=== PATIENT | female | born 1975 | race Caucasian/White ===

== ENCOUNTER 2017-10-13 02:02 | Emergency (ER) | payer OTHER, MEDICAID, SELFPAY ==
--- NOTE | 2017-10-13 02:07 | ED_ITS ---
HPI - Headache General Chief Complaint: Headache Stated Complaint: Massive Headache unable to use right arm well Time Seen by Provider: 10/13/17 02:06 Source: patient Mode of arrival: ambulatory Limitations: no limitations History of Present Illness HPI Narrative: Patient is a 41-year-old female here for evaluation of a headache and inability to lift her right arm. Patient states that the headache woke her from sleep just prior to arrival. Patient states that she has had headaches in the past this is the same headache in character that she has had in the past just worse. She has never had right arm symptoms associated with the headaches. She does state that she gets headaches ?frequently ?she is not on any headache preventative medicines. Denies any fevers. Denies any trauma. States she does have some tingling in her fingers however her right arm symptoms are that she cannot lift her right arm up. States she does have some neck pain. Related Data Home Medications Medication Instructions Recorded Confirmed loratadine 10 mg tablet 10 mg PO DAILY 10/06/17 10/06/17 Previous Rx's Medication Instructions Recorded albuterol sulfate HFA 90 2 inhalation INHALATION Q4HP PRN 10/06/17 mcg/actuation aerosol inhaler #200 inhalation fluticasone 50 mcg/actuation nasal 1 spray NASAL BID #16 gram 10/06/17 spray,suspension fluticasone furoate 100 1 inhalation INHALATION DAILY #30 10/06/17 mcg/actuation blister powder for each inhalation Allergies Allergy/AdvReac Type Severity Reaction Status Date / Time Aspirin Allergy Mild Uncoded 10/13/17 02:44 Salicylate Allergy Mild Uncoded 10/13/17 02:44 Review of Systems Constitutional Denies fatigue, Denies fever(s), Reports headache(s) and Denies weakness Eyes Denies blurry vision and Denies diplopia ENT Ears, Nose, Mouth, and Throat: Denies vertigo, Denies dizziness, Reports headache(s), Reports neck pain, Denies disequilibrium, Denies sinus pressure and Denies sore throat Cardiovascular Denies chest pain, Denies palpitations and Denies dyspnea Respiratory Denies cough and Denies dyspnea Gastrointestinal Gastrointestinal: Denies nausea and Denies vomiting Genitourinary Denies dysuria Musculoskeletal Denies myalgias, Denies arthralgias, Reports neck pain and Reports tingling ( Right hand) Comments: No pain in the right arm but states she cannot lift her right arm Integumentary/Breasts Denies lesions and Denies rash Neurologic Denies vertigo, Denies dizziness, Reports headache(s), Denies focal weakness, Reports tingling (Right hand), Denies disequilibrium and Denies weakness Endocrine Denies fatigue and Denies palpitations Hematologic/Lymphatic Denies easy bleeding and Denies easy bruising COUNTS INCLUDE 234 BEDS AT THE [facility] Medical History Asthma (Chronic) Bipolar disorder (Chronic) Duodenal ulcer (Chronic 09/2009) Surgical History Status post endoscopy (Resolved 09/2009) Family History Other Alcoholism Asthma Social History Smoking Status: Smoker, status unknown Exam Initial Vital Signs Initial Vital Signs: Vital Signs Temperature 98 F 10/13/17 02:13 Pulse Rate 114 H 10/13/17 02:13 Respiratory Rate 18 10/13/17 02:13 Blood Pressure 138/91 H 10/13/17 02:13 Pulse Oximetry 96 10/13/17 02:13 Const General: cooperative, healthy appearing, comfortable, well developed, well groomed and No acute distress Orientation: alert, awake and oriented x3 HENMT Head: normal to inspection, normocephalic and atraumatic Face and sinus: normal facial exam Mouth: oral mucosae normal Eyes Pupils: PERRL EOM: EOM intact bilaterally Neck Neck: full ROM and no meningeal signs Resp Effort & Inspection: normal respiratory effort Auscultation: clear to auscultation bilaterally Cardio Rate: tachycardic Rhythm: regular rhythm Pulses: radial pulses present GI Inspection: normal to inspection and non-distended Palpation: soft and No firm Skin Lesions: no lesions Rashes: no rashes Neuro General: alert, awake and oriented x3 Cranial Nerves: CN's II-XI intact bilaterally Cognition: normal cognition Speech: speech normal Gait: normal gait Motor: muscle tone normal throughout Sensory Exam: no sensory deficits noted (Despite her feeling of ?tingling? in her right hand) Extrem Other: Left upper extremity unremarkable. Patient able to forward flex and abduct her right arm to approximately 45? and then she states that it ?stops ? she does not have any pain. She states that she cannot lift her left arm. She states that it does not feel weak. Passively trying to lift her right arm patient resists moving it past 45?. When she is reminded to relax her arm his easily forward flexed and abducted actively however she then resists the movement once again. Psych Appearance: grossly normal and well kempt Course Orders Ordered: ED Orders 10/13/17 02:12 CT head/brain wo con Stat 10/13/17 02:15 Basic Metabolic Panel Stat Complete Blood Count AUTO DIFF Stat Discontinued Medications Diphenhydramine HCl (Benadryl) 25 mg IV NOW ONE Stop: 10/13/17 02:11 Last Admin: 10/13/17 02:25 Dose: 25 mg Sodium Chloride (Normal Saline 0.9%) 1,000 mls @ 1,000 mls/hr IV BOLUS ONE Stop: 10/13/17 03:09 Last Infusion: 10/13/17 03:24 Dose: 0 mls/hr Admin: 10/13/17 02:25 Dose: 1,000 mls/hr Metoclopramide HCl (Reglan) 10 mg IV NOW ONE Stop: 10/13/17 02:11 Last Admin: 10/13/17 02:25 Dose: 10 mg Vital Signs - 8 hr 10/13/17 02:13 Temperature 98 F Pulse Rate 114 H Respiratory Rate 18 Blood Pressure 138/91 H Pulse Oximetry 96 MDM - Headache Lab Data Attestation: I reviewed the patient's lab results. Result diagrams: 10/13/17 02:15 10/13/17 02:15 Lab Results 10/13/17 10/13/17 Range/Units 02:15 02:15 WBC 10.9 (4.5-11.0) X10^3/uL RBC 4.13 (4.0-5.2) X10^6/uL Hgb 14.9 (12.0-16.0) g/dL Hct 42.6 (36-46) % MCV 103.1 H (80-100) fL MCH 35.9 H (26-34) PG MCHC 34.8 (30-36) % RDW 13.4 (11.6-14.8) % Plt Count 120 L (150-400) X10^3/uL Neut % (Auto) 47.1 L (50-75) % Lymph % (Auto) 37.8 (25-40) % [place] % (Auto) 7.9 (3-14) % Eos % (Auto) 5.7 H (2-4) % Baso % (Auto) 1.5 (0-2) % Neut # (Auto) 5100 (9280-2553) /uL Sodium 148 H (137-145) mmol/L Potassium 4.3 (3.4-5.1) mmol/L Chloride 106 (98-107) mmol/L Carbon Dioxide 24 (22-32) mmol/L BUN 6 L (7-17) mg/dL Creatinine 0.40 L (0.52-1.04) mg/dL Estimated GFR > 60.0 (>60) mL/min BUN/Creatinine Ratio 15.0 (6-22) Glucose 119 H (70-100) mg/dL Calcium 9.3 (8.4-10.2) mg/dL Imaging Data CT scan - head: Radiologist's impression: No acute pathology MDM Narrative Medical decision making narrative: Patient with headache. She states that she does have headaches in the past and in character this 1 feels like a prior headache. She was given Reglan and Benadryl which resolved all of her symptoms. Her head CT was negative. She has no meningeal signs. Patient's right arm symptoms were also resolved with the Reglan and Benadryl. I do not feel that her history and physical exam is consistent with a CVA or TIA. Upon arrival she clearly was resisting my movement of her arm in forward flexion and abduction. I am not sure the exact etiology of why this was happening. This could be an atypical migraine. There could also be a psych component to her symptoms. Informed the patient that she needed to contact her primary care doctor for a follow-up. Informed her that if she does get frequent headaches that she should talk with her primary care doctor about being referred to see a headache specialist. She was given return precautions. She expressed understanding and agreement with plan. Discharge Plan Departure Patient Disposition: Home, Self-Care Clinical Impression: Headache Discharge Date/Time: 10/13/17 03:29 Instructions: DI for Headache Activity Restrictions/Additional Instructions: Recommend you continue all of your medications as directed. Contact your primary care doctor for a follow-up. Return to the emergency department for any new or worsening symptoms. Prescriptions: No Action loratadine [Claritin] 10 mg tablet 10 mg PO DAILY RF: 0 fluticasone furoate [Arnuity Ellipta] 100 mcg/actuation blister with device 1 inhalation INHALATION DAILY Qty: 30 RF: 1 albuterol sulfate [Ventolin HFA] 90 mcg/actuation HFA aerosol inhaler 2 inhalation INHALATION Q4HP PRN (Reason: shortness of breath or wheezing) Qty: 200 RF: 0 fluticasone [Allergy Relief (fluticasone)] 50 mcg/actuation spray,suspension 1 spray NASAL BID Qty: 16 RF: 8
--- NOTE | 2017-10-13 02:12 | DI.CT.S_ITS ---
PROCEDURE: CT HEAD/BRAIN WO CON INDICATIONS: Headache TECHNIQUE: Noncontrast 4.5 mm thick angled axial sections acquired from the foramen magnum to the vertex, with coronal and sagittal reformats. For radiation dose reduction, the following was used: automated exposure control, adjustment of mA and/or kV according to patient size. COMPARISON: None. FINDINGS: Image quality: Excellent. CSF spaces: Basal cisterns are patent. No extra-axial fluid collections. Ventricles are normal in size and shape. Brain: No midline shift. No intracranial masses or hemorrhage. De La Garza-white matter interface is normal. Skull and face: Calvarium and visualized facial bones are intact, without suspicious lesions. Sinuses: Visualized sinuses and mastoids are clear except for minimal right sphenoid sinus disease. IMPRESSION: No acute intracranial process. Dictated by: Shankar Hogue M.D. on 10/13/2017 at 7:08 Approved by: Shankar Hogue M.D. on 10/13/2017 at 7:09
[2017-10-13 02:13] VITALS: BP 138/91; PULSE 114; RESP 18; TEMP 36.6; O2SAT 96; BMI 25.8
[2017-10-13] MEDS: SODIUM CHLORIDE 0.9% 1,000 ML 1000 ML IV (02:25)
[2017-10-13] MEDS: diphenhydrAMINE 50 MG/ML VIAL 25 MG IV (02:25)
[2017-10-13] MEDS: METOCLOPRAMIDE 10 MG/2 ML INJ IV (02:25)
--- NOTE | 2017-10-13 02:30 | PC.NURSE ---
SHE STATED SHE COULD NOT MOVE HER RIGHT ARM BUT WAS ABLE TO RAISE IT TO HER CHEST AND PER DR. BELL ABLE TO PUSH HER ARM DOWN AGAINST HIS HAND'S RESISTENCE.
[2017-10-13 02:31] LABS: Hematocrit 42.6 % (36-46); Hemoglobin 14.9 g/dL (12.0-16.0); Mean Corpuscular HGB Conc 34.8 % (30-36)
[2017-10-13 02:36] LABS: Add Manual Diff / Slide Review NO; Basophils Percent Auto 1.5 % (0-2); Blood Urea Nitrogen 6 mg/dL (7-17); Calcium 9.3 mg/dL (8.4-10.2); Carbon Dioxide 24 mmol/L (22-32); Chloride 106 mmol/L (98-107); Eosinophils Percent Auto 5.7 % (2-4); Estimated Glomerular Filt Rate > 60.0 mL/min (>60); Glucose 119 mg/dL (70-100); HEMOLYSIS < 15 (0-50); Lymphocytes Percent Auto 37.8 % (25-40); Mean Corpuscular Hemoglobin 35.9 PG (26-34); Mean Corpuscular Volume 103.1 fL (80-100); Monocytes Percent Auto 7.9 % (3-14); Neutrophils Absolute Auto 5100 /uL (3000-5900); Neutrophils Percent Auto 47.1 % (50-75); Platelet Count 120 X10^3/uL (150-400); Potassium 4.3 mmol/L (3.4-5.1); Red Blood Cell Count 4.13 X10^6/uL (4.0-5.2); Red Cell Distribution Width 13.4 % (11.6-14.8); Sodium 148 mmol/L (137-145); White Blood Cell Count 10.9 X10^3/uL (4.5-11.0)
[2017-10-13 03:25] VITALS: BP 97/59; PULSE 74; RESP 12; O2SAT 97
== END 2017-10-13 03:29 | disposition home or self-care (01) ==
PROVIDERS: Emergency Provider Emergency Medicine; Family Provider Family Medicine; PCP Family Medicine
DX: R51 Headache (principal)
CPT/HCPCS: 36591; 70450; 80048; 85025; 96361; 96374; 96375; 99283; 99284; 99291; J1200; J2765

== ENCOUNTER → 2017-10-20 10:51 | Outpatient (CLI) | payer OTHER, MEDICAID, SELFPAY ==
--- NOTE | 2017-10-20 11:01 | DI.RAD.S_ITS ---
PROCEDURE: XR CHEST 2V INDICATIONS: POORLY CONTROLLED PERSISTENT ASTHMA TECHNIQUE: 2 views of the chest were acquired. COMPARISON: None. FINDINGS: Surgical changes and devices: None. Lungs and pleura: No pleural effusions or pneumothorax. Lungs are clear. Mediastinum: Mediastinal contours are normal. Heart size is normal. Bones and chest wall: No suspicious bony abnormalities. Soft tissues appear unremarkable. IMPRESSION: Normal for age, source of current symptoms is not seen. Dictated by: Jayson Pena M.D. on 10/20/2017 at 11:44 Approved by: Jayson Pena M.D. on 10/20/2017 at 11:44
== END ==
PROVIDERS: PCP Internal Medicine; Visit Provider Internal Medicine
DX: J45.998 Other asthma (principal)
CPT/HCPCS: 71046

== ENCOUNTER → 2018-02-02 16:37 | Outpatient (CLI) | payer OTHER, MEDICAID, SELFPAY ==
--- NOTE | 2018-02-06 08:41 | PM.PFT.1 ---
Pulmonary Function Test Referral & Results Date Patient Seen: 02/02/18 Requesting provider: Nahum Oakley Indication: Asthma Results: The spirometry demonstrates an FVC of 3.79 L which is 88% of predicted. The FEV1 was measured at 2.97 L which is 86% of predicted. The FEV1/FVC ratio was 79 which is 96% of predicted. Following the administration of bronchodilator there was no appreciable change. Lung volumes show an SVC of 3.66 L which is 94% of predicted. The diffusing capacity was measured at 31.11 which is 100% of predicted. The maximum voluntary ventilation was slightly reduced Interpretation: This study is essentially normal. There may be very mild obstructive lung disease present based on a very slight curve to the flow volume loop and very minimal reduction in FEV1. No evidence of benefit following bronchodilator administration however.
== END ==
PROVIDERS: PCP Internal Medicine; Visit Provider Internal Medicine
DX: J45.998 Other asthma (principal)
CPT/HCPCS: 94060; 94726; 94729

== ENCOUNTER 2018-06-23 13:26 | Emergency (ER) | payer OTHER, MEDICAID, SELFPAY ==
[2018-06-23 13:43] VITALS: BP 128/82; PULSE 99; RESP 20; TEMP 36.8; O2SAT 97; BMI 23.3
--- NOTE | 2018-06-23 13:47 | DI.RAD.S_ITS ---
PROCEDURE: XR RIBS RT MIN 3V W CXR 1V INDICATIONS: right rib pain after fall TECHNIQUE: 4 views of the ribs and chest were acquired. COMPARISON: None. FINDINGS: Surgical changes and devices: None. Bones and chest wall: No fractures or dislocations. No suspicious bony lesions. Overlying soft tissues appear unremarkable. Lungs and pleura: No pleural effusions or pneumothorax. Lungs appear clear. Mediastinum: Mediastinal contours appear normal. Heart size is normal. IMPRESSION: Chest without acute cardiopulmonary abnormalities or rib fractures. Dictated by: Adithya Lea M.D. on 06/23/2018 at 14:13 Approved by: Adithya Lea M.D. on 06/23/2018 at 14:14
== END 2018-06-23 16:08 | disposition left against medical advice (07) ==
PROVIDERS: Emergency Provider Emergency Medicine; PCP Internal Medicine
DX: R07.81 Pleurodynia (principal); Z53.21 Procedure and treatment not carried out due to patient leaving prior to being seen by health care provider
CPT/HCPCS: 71101; 99282

== ENCOUNTER 2018-07-11 16:56 | Emergency (ER) | payer OTHER, MEDICAID, SELFPAY ==
[2018-07-11 17:03] VITALS: BP 134/79; PULSE 112; RESP 16; TEMP 36.9; O2SAT 96; BMI 23.3
[2018-07-11 18:40] LABS: Add Manual Diff / Slide Review NO; Basophils Absolute Auto 100 /uL (0-100); Basophils Percent Auto 1.1 % (0-2); Eosinophils Absolute Auto 100 /uL (0-450); Eosinophils Percent Auto 1.7 % (2-4); Hematocrit 34.5 % (36-46); Hemoglobin 11.6 g/dL (12.0-16.0); Lymphocytes Absolute Auto 2000 /uL (1100-4500); Lymphocytes Percent Auto 28.8 % (25-40); Mean Corpuscular HGB Conc 33.5 % (30-36); Mean Corpuscular Hemoglobin 35.7 PG (26-34); Mean Corpuscular Volume 106.7 fL (80-100); Monocytes Absolute Auto 600 /uL (0-900); Monocytes Percent Auto 8.5 % (3-14); Neutrophils Absolute Auto 4200 /uL (1500-7000); Neutrophils Percent Auto 59.9 % (50-75); Platelet Count 53 X10^3/uL (150-400); Red Blood Cell Count 3.23 X10^6/uL (4.0-5.2); Red Cell Distribution Width 14.2 % (11.6-14.8); White Blood Cell Count 7.1 X10^3/uL (4.5-11.0)
[2018-07-11 18:44] LABS: INR 1.6 (0.9-1.3); Prothrombin Time 18.4 SECONDS (10.1-12.7)
[2018-07-11 18:46] LABS: Alanine Aminotransferase 63 IU/L (9-52); Albumin 3.9 g/dL (3.5-5.0); Albumin Globulin Ratio 0.8 (1.0-2.8); Alkaline Phosphatase 262 U/L (38-126); Aspartate Aminotransferase 202 IU/L (14-36); Bilirubin Total 5.1 mg/dL (0.2-1.3); Blood Urea Nitrogen 4 mg/dL (7-17); Calcium 8.5 mg/dL (8.4-10.2); Carbon Dioxide 24 mmol/L (22-32); Chloride 110 mmol/L (98-107); Estimated Glomerular Filt Rate > 60.0 mL/min (>60); Globulin 4.6 g/dL (1.7-4.1); Glucose 105 mg/dL (70-100); HEMOLYSIS < 15 (0-50); Potassium 3.9 mmol/L (3.4-5.1); Sodium 147 mmol/L (137-145); Total Protein 8.5 g/dL (6.3-8.2)
[2018-07-11 18:47] LABS: PTT Partial Thromboplastin Tim 44 SECONDS (26.4-36.2)
--- NOTE | 2018-07-11 18:58 | ED_ITS ---
HPI - Epistaxis General Chief complaint: Nasal Problem Stated complaint: Nose bleed, not undercontrol Time Seen by Provider: 07/11/18 17:37 Source: patient and old records reviewed Limitations: no limitations History of Present Illness HPI Narrative: Patient is a 42-year-old female who presents with persistent right epistaxis. She was seen evaluated out walking clinic she actually had a rhino rocket placed which she later pulled out. She came to the ED as she was still having nose bleeding. It does not seem to be dripping down her throat she is able to talk without any problems. It seems to be slow bleed. She states she has had bloody noses off and on for about 1 month. She pinches it but I am not sure how long she pinches at 4. She was previously given a nasal clamp which she has already lost. She admits to drinking daily alcohol is on her breath. at time of my evaluation she was already wanting to leave but agreed to my help and blood draw. MD complaint: epistaxis Location: right nostril Related Data Home Medications Medication Instructions Recorded Confirmed loratadine 10 mg tablet 10 mg PO DAILY 10/06/17 07/11/18 fluticasone propionate 1 spray INTRANASAL DIRECTED 07/11/18 07/11/18 Previous Rx's Medication Instructions Recorded albuterol sulfate HFA 90 2 inhalation INHALATION Q4HP PRN 10/25/17 mcg/actuation aerosol inhaler #200 inhalation fluticasone furoate 200 1 inhalation INHALATION DAILY #28 01/29/18 mcg-vilanterol 25 mcg/dose each inhalation powder amoxicillin 875 mg-potassium 1 tab PO BID 10 Days #20 tab 07/11/18 clavulanate 125 mg tablet Allergies Allergy/AdvReac Type Severity Reaction Status Date / Time aspirin Allergy Verified 07/11/18 12:47 Review of Systems Review of Systems ROS Unobtainable: All systems reviewed & are unremarkable except as noted in HPI and below Constitutional Denies chills, Denies fever(s), Denies lethargy and Denies weakness ENT Ears, Nose, Mouth, and Throat: Reports system reviewed and no additional complaints, except as docu and Reports as per HPI Cardiovascular Denies chest pain, Denies irregular heart rhythm, Denies lightheadedness, Denies palpitations, Denies dyspnea, Denies dyspnea on exertion and Denies orthopnea Respiratory Denies cough, Denies dyspnea, Denies dyspnea on exertion and Denies wheezing Gastrointestinal Gastrointestinal: Denies abdominal pain, Denies change in bowel habits, Denies diarrhea, Denies nausea and Denies vomiting Genitourinary Denies hematuria, Denies flank pain, Denies urinary incontinence and Denies urinary urgency Musculoskeletal Denies back pain, Denies muscle weakness, Denies numbness and Denies tingling Integumentary/Breasts Denies pruritus, Denies erythema, Denies rash and Denies wounds Neurologic Denies numbness, Denies tingling and Denies weakness Endocrine Denies palpitations Allergic/Immunologic Denies wheezing [facility] Medical History Chronic migraine (Chronic) Major depressive disorder, recurrent, moderate (Chronic 12/31/10) Gastro-esophageal reflux (Chronic 12/31/10) Allergic rhinitis (Chronic) Asthma (Chronic) Bipolar disorder (Chronic) Duodenal ulcer (Chronic 09/2009) Surgical History Status post endoscopy (Resolved 09/2009) Family History Other Alcoholism Asthma Social History Smoking Status: Current some day smoker Family History Other Alcoholism Asthma Social History (Updated 07/11/18 @ 19:37 by Brandi Hu DO) Smoking Status: Current some day smoker alcohol intake: current Exam Initial Vital Signs Initial Vital Signs: Vital Signs Temperature 98.5 F 07/11/18 17:03 Pulse Rate 112 H 07/11/18 17:03 Respiratory Rate 16 07/11/18 17:03 Blood Pressure 134/79 07/11/18 17:03 Pulse Oximetry 96 07/11/18 17:03 GENERAL: Well-appearing, well-nourished and in no acute distress. CARDIOVASCULAR: peripheral pulses in tact, cap refill <2 sec RESPIRATORY: No respiratory distress, speaks in full sentences without difficulty [ABDOMEN: Soft, nontender, no guarding or rebound] EXTREMITIES: Normal range of motion, no clubbing or edema. Neurovascularly intact NEUROLOGICAL: Cranial nerves II through XII grossly intact. Normal gait and speech. SKIN: Warm, dry, no petechiae, no rashes or lesions. Procedures Epistaxis Control Time Out Performed: Yes Nostril: right Nose Prepped With: oxymetazoline Cautery Used: none Device Inserted: hemostatic balloon Patient Tolerated Procedure: well Course Orders Ordered: ED Orders 07/11/18 18:27 Complete Blood Count AUTO DIFF Stat Comprehensive Metabolic Panel Stat Partial Thromboplastin Time Stat Prothrombin Time INR Stat Type and Screen Stat Vital Signs - 8 hr 07/11/18 17:03 Temperature 98.5 F Pulse Rate 112 H Respiratory Rate 16 Blood Pressure 134/79 Pulse Oximetry 96 MDM - Epistaxis Lab Data Attestation: I reviewed the patient's lab results. Result diagrams: 07/11/18 18:27 07/11/18 18:27 Lab Results 07/11/18 07/11/18 07/11/18 Range/Units 18:27 18:27 18:27 WBC 7.1 (4.5-11.0) X10^3/uL RBC 3.23 L (4.0-5.2) X10^6/uL Hgb 11.6 L (12.0-16.0) g/dL Hct 34.5 L (36-46) % MCV 106.7 H (80-100) fL MCH 35.7 H (26-34) PG MCHC 33.5 (30-36) % RDW 14.2 (11.6-14.8) % Plt Count 53 L (150-400) X10^3/uL Neut % (Auto) 59.9 (50-75) % Lymph % (Auto) 28.8 (25-40) % [place] % (Auto) 8.5 (3-14) % Eos % (Auto) 1.7 L (2-4) % Baso % (Auto) 1.1 (0-2) % Neut # (Auto) 4200 (3762-4775) /uL Lymph # (Auto) 2000 (7344-8757) /uL [place] # (Auto) 600 (0-900) /uL Eos # (Auto) 100 (0-450) /uL Baso # (Auto) 100 (0-100) /uL PT 18.4 H (10.1-12.7) SECONDS INR 1.6 H (0.9-1.3) APTT 44 H (26.4-36.2) SECONDS Sodium 147 H (137-145) mmol/L Potassium 3.9 (3.4-5.1) mmol/L Chloride 110 H (98-107) mmol/L Carbon Dioxide 24 (22-32) mmol/L BUN 4 L (7-17) mg/dL Creatinine 0.40 L (0.52-1.04) mg/dL Estimated GFR > 60.0 (>60) mL/min BUN/Creatinine Ratio 10.0 (6-22) Glucose 105 H (70-100) mg/dL Calcium 8.5 (8.4-10.2) mg/dL Total Bilirubin 5.1 H (0.2-1.3) mg/dL AST 202 H (14-36) IU/L ALT 63 H (9-52) IU/L Alkaline Phosphatase 262 H (38-126) U/L Total Protein 8.5 H (6.3-8.2) g/dL Albumin 3.9 (3.5-5.0) g/dL Globulin 4.6 H (1.7-4.1) g/dL Albumin/Globulin Ratio 0.8 L (1.0-2.8) MDM Narrative Medical decision making narrative: The patient is demanding that the balloon had air removed she says it is too uncomfortable. It does not seem to be stopping the nose bleed. She also is wanting to leave prior to blood work being back. Nasal balloon is left in place she is given a syringe and in the clamp. I have instructed her to hold pressure. Blood work returned she is thrombocytopenic and has a large MCV consistent with alcoholism. Discharge Plan Departure Patient Disposition: Home Clinical Impression: Epistaxis Discharge Date/Time: 07/11/18 18:46 Interventions: ED Discharge Assessment Last Done: 07/11/18 18:45 Instructions: DI for Nosebleed Activity Restrictions/Additional Instructions: *You have been diagnosed with nose bleed *What to do: You have left prior to your blood work results. Keep balloon in nose for 24 hours. May apply clamp 30-60 minutes to also stop bleeding *Continue to take medications as directed *Follow up with your primary care provider in 2-3 days, call ENT tomorrow to schedule follow-up *Return to ER if you should have persistent nose bleed or any new, worsening or concerning symptoms Prescriptions: No Action amoxicillin-pot clavulanate [Augmentin] 875-125 mg tablet 1 tab PO BID 10 Days Qty: 20 RF: 0 albuterol sulfate [Ventolin HFA] 90 mcg/actuation HFA aerosol inhaler 2 inhalation INHALATION Q4HP PRN (Reason: shortness of breath or wheezing) Qt y: 200 RF: 0 loratadine [Claritin] 10 mg tablet 10 mg PO DAILY RF: 0 fluticasone furoate-vilanterol [Breo Ellipta] 200-25 mcg/dose blister with device 1 inhalation INHALATION DAILY Qty: 28 RF: 11 fluticasone propionate 50 mcg/actuation spray,suspension 1 spray Intranasal DIRECTED RF: 0 Referrals: Dedrick Mayorga MD [Physician] - Nahum Oakley MD [Primary Care Provider] -
== END 2018-07-11 18:46 | disposition home or self-care (01) ==
PROVIDERS: Emergency Medicine; Emergency Provider Emergency Medicine; PCP Internal Medicine
DX: R04.0 Epistaxis (principal)
CPT/HCPCS: 30903; 36415; 80053; 85025; 85610; 85730; 86850; 86900; 86901; 99282; 99283

== ENCOUNTER 2018-07-13 18:09 | Inpatient (IN) | payer OTHER, MEDICAID, SELFPAY ==
--- NOTE | 2018-07-13 18:20 | DI.CT.S_ITS ---
PROCEDURE: CT HEAD/BRAIN WO CON INDICATIONS: seizure low platelets etoh TECHNIQUE: Noncontrast 4.5 mm thick angled axial sections acquired from the foramen magnum to the vertex, with coronal and sagittal reformats. For radiation dose reduction, the following was used: automated exposure control, adjustment of mA and/or kV according to patient size. COMPARISON: 10/13/17. FINDINGS: Image quality: Excellent. CSF spaces: Basal cisterns are patent. No extra-axial fluid collections. Ventricles are normal in size and shape. Brain: No midline shift. No intracranial masses or hemorrhage. De La Garza-white matter interface is normal. Skull and face: Calvarium and visualized facial bones are intact, without suspicious lesions. Sinuses: Visualized sinuses and mastoids are clear. IMPRESSION: Stable CT evaluation of the head without acute intracranial abnormalities. No calvarial fractures. Dictated by: Adithya Lea M.D. on 07/13/2018 at 18:48 Approved by: Adithya Lea M.D. on 07/13/2018 at 18:50
[2018-07-13 18:27] LABS: Add Manual Diff / Slide Review NO; Basophils Absolute Auto 200 /uL (0-100); Basophils Percent Auto 1.9 % (0-2); Eosinophils Absolute Auto 100 /uL (0-450); Eosinophils Percent Auto 1.4 % (2-4); Hematocrit 34.6 % (36-46); Hemoglobin 11.2 g/dL (12.0-16.0); Lymphocytes Absolute Auto 3000 /uL (1100-4500); Lymphocytes Percent Auto 36.3 % (25-40); Mean Corpuscular HGB Conc 32.4 % (30-36); Mean Corpuscular Hemoglobin 35.5 PG (26-34); Mean Corpuscular Volume 109.4 fL (80-100); Monocytes Absolute Auto 1000 /uL (0-900); Neutrophils Absolute Auto 4000 /uL (1500-7000); Neutrophils Percent Auto 48.4 % (50-75); Platelet Count 51 X10^3/uL (150-400); Red Blood Cell Count 3.17 X10^6/uL (4.0-5.2); Red Cell Distribution Width 14.3 % (11.6-14.8); White Blood Cell Count 8.3 X10^3/uL (4.5-11.0)
[2018-07-13 18:28] VITALS: BP 125/66; PULSE 99; RESP 22; TEMP 37.4; O2SAT 95; BMI 27.0
--- NOTE | 2018-07-13 18:29 | ED_ITS ---
HPI - Seizure General Chief Complaint: Seizure Stated Complaint: Seizure, etoh withdrawl Time Seen by Provider: 07/13/18 18:12 Source: family and EMS Limitations: no limitations History of Present Illness HPI Narrative: Patient is a 42-year-old female who presents with a seizure. She has known alcoholic she has not had a drink for the last 2 days. She has actually seen and evaluated here 2 days ago for epistaxis blood work done platelets were 53 at that time. Boyfriend says that she has been vomiting he heard her fall in the bathroom. She bit her tongue and was shaking all over lasting for just a few minutes. Postictal for EMS. Now awake shaking and confusion. Related Data Home Medications Medication Instructions Recorded Confirmed loratadine 10 mg tablet 10 mg PO DAILY 10/06/17 07/13/18 fluticasone propionate 1 spray INTRANASAL DIRECTED 07/11/18 07/13/18 Previous Rx's Medication Instructions Recorded albuterol sulfate HFA 90 2 inhalation INHALATION Q4HP PRN 10/25/17 mcg/actuation aerosol inhaler #200 inhalation fluticasone furoate 200 1 inhalation INHALATION DAILY #28 01/29/18 mcg-vilanterol 25 mcg/dose each inhalation powder amoxicillin 875 mg-potassium 1 tab PO BID 10 Days #20 tab 07/11/18 clavulanate 125 mg tablet Allergies Allergy/AdvReac Type Severity Reaction Status Date / Time aspirin AdvReac Verified 07/13/18 20:31 Review of Systems Review of Systems ROS Unobtainable: All systems reviewed & are unremarkable except as noted in HPI and below Constitutional Denies chills, Denies fever(s), Denies lethargy and Denies weakness Eyes Denies change in vision, Denies eye discharge, Denies irritation and Denies loss of vision ENT Ears, Nose, Mouth, and Throat: Denies change in voice, Reports epistaxis, Denies neck pain and Denies sore throat Cardiovascular Denies chest pain, Denies irregular heart rhythm, Denies lightheadedness, Denies palpitations, Denies dyspnea, Denies dyspnea on exertion and Denies orthopnea Respiratory Denies cough, Denies dyspnea, Denies dyspnea on exertion and Denies wheezing Gastrointestinal Gastrointestinal: Denies abdominal pain, Denies change in bowel habits, Denies diarrhea, Reports nausea and Reports vomiting Genitourinary Denies hematuria, Denies flank pain, Denies urinary incontinence and Denies urinary urgency Musculoskeletal Denies neck pain Integumentary/Breasts Denies pruritus, Denies erythema, Denies rash and Denies wounds Neurologic Reports as per HPI, Reports confusion, Denies loss of vision, Reports convulsions, Reports seizure-like activity and Denies weakness Psychiatric Denies anxiety, Reports confusion, Denies depression, Denies homicidal ideation and Denies suicidal ideation Comments: Alcoholism Endocrine Denies palpitations Hematologic/Lymphatic Reports easy bleeding (Frequent epistaxis) and Reports easy bruising Allergic/Immunologic Denies wheezing [facility] Medical History Chronic migraine (Chronic) Major depressive disorder, recurrent, moderate (Chronic 12/31/10) Gastro-esophageal reflux (Chronic 12/31/10) Allergic rhinitis (Chronic) Asthma (Chronic) Bipolar disorder (Chronic) Duodenal ulcer (Chronic 09/2009) Surgical History Status post endoscopy (Resolved 09/2009) Family History Other Alcoholism Asthma Social History (Updated 07/11/18 @ 19:37 by Brandi Hu DO) Smoking Status: Current some day smoker alcohol intake: current Family History Other Alcoholism Asthma Social History Smoking Status: Current some day smoker alcohol intake: current Exam Initial Vital Signs Initial Vital Signs: Vital Signs Temperature 99.4 F 07/13/18 18:28 Pulse Rate 99 H 07/13/18 18:28 Respiratory Rate 22 07/13/18 18:28 Blood Pressure 125/66 07/13/18 18:28 Pulse Oximetry 95 07/13/18 18:28 GENERAL: Confused slightly jaundice female awake and alert and in no acute distress. HEENT: Head atraumatic,EOMI, pupils reactive, bleeding tongue dry blood around mouth CARDIOVASCULAR: Regular rate and rhythm without murmurs, rubs or gallops. RESPIRATORY: Breath sounds equal bilaterally, no wheezes rales or rhonchi. ABDOMEN: Soft, nontender. Normoactive bowel sounds all 4 quadrants. No guarding or rebound. : No CVA tenderness EXTREMITIES: Normal range of motion, no clubbing or edema. Neurovascularly intact NEUROLOGICAL: Alert and oriented x4.Normal gait and speech. Cranial nerves II through XII grossly intact. 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 SKIN: Warm, dry, no laceration, no petechiae, no rashes or lesions. Course Orders Ordered: ED Orders 07/13/18 18:12 Urinalysis Sreen (Dip Only) Stat Urine Drug Screen, Rapid Stat EKG-12 Lead Stat 07/13/18 18:20 CT head/brain wo con Stat Complete Blood Count AUTO DIFF Stat Comprehensive Metabolic Panel Stat Ethanol (ETOH) Stat Lipase Stat Magnesium Stat Prolactin Stat 07/13/18 20:12 Consult to Dietitian, Adult Routine Education, smoking cessation ONGOING 07/14/18 05:00 Complete Blood Count AUTO DIFF Stat Comprehensive Metabolic Panel Stat Prothrombin Time INR Stat Folic Acid (Folic Acid) 1 mg PO DAILY [facility] Sodium Chloride (Normal Saline 0.9%) 1,000 mls @ 100 mls/hr IV CONT [facility] Last Admin: 07/13/18 20:26 Dose: 100 mls/hr Loratadine (Claritin) 10 mg PO DAILY [facility] Lorazepam (Ativan) 0 mg IV CIWAPRN PRN; Protocol PRN Reason: Alcohol Withdrawal Multivitamins (Tab-A-[place]) 1 tab PO DAILY [facility] Fluticasone Furoate- Vilanterol [Breo Ellipta] 1 inhalation INHALATION DAILY [facility] Ondansetron HCl (Zofran) 4 mg IV Q8HR PRN PRN Reason: Nausea And Vomiting Thiamine HCl (Vitamin B-1) 100 mg PO DAILY [facility] Stop: 07/17/18 09:01 Discontinued Medications Sodium Chloride (Normal Saline 0.9%) 1,000 mls @ 1,000 mls/hr IV BOLUS ONE Stop: 07/13/18 19:11 Last Infusion: 07/13/18 20:15 Dose: 0 mls/hr Admin: 07/13/18 18:56 Dose: 1,000 mls/hr Thiamine HCl 100 mg/ Dextrose 51 mls @ 204 mls/hr IV NOW ONE Stop: 07/13/18 19:10 Last Infusion: 07/13/18 20:00 Dose: 0 mls/hr Admin: 07/13/18 19:24 Dose: 204 mls/hr Sodium Chloride (Normal Saline 0.9%) 1,000 mls @ 1,000 mls/hr IV BOLUS ONE Stop: 07/13/18 20:54 Lorazepam (Ativan) 1 mg IV NOW ONE Stop: 07/13/18 19:10 Last Admin: 07/13/18 19:29 Dose: Not Given Lorazepam (Ativan) 2 mg IV NOW ONE Stop: 07/13/18 19:23 Last Admin: 07/13/18 19:12 Dose: 2 mg Vital Signs - 8 hr 07/13/18 18:28 07/13/18 18:59 07/13/18 19:24 Temperature 99.4 F Pulse Rate 99 H 84 97 H Respiratory Rate 22 20 18 Blood Pressure 125/66 Blood Pressure [Right Arm] 99/62 116/71 Pulse Oximetry 95 94 93 07/13/18 20:00 07/13/18 20:20 Temperature 99.2 F Pulse Rate 90 104 H Respiratory Rate 16 19 Blood Pressure 123/70 118/64 Blood Pressure [Right Arm] Pulse Oximetry 99 92 MDM - Seizure Lab Data Attestation: I reviewed the patient's lab results. Result diagrams: 07/13/18 18:20 07/13/18 18:20 Lab Results 07/13/18 07/13/18 07/13/18 Range/Units 18:20 18:20 18:20 WBC 8.3 (4.5-11.0) X10^3/uL RBC 3.17 L (4.0-5.2) X10^6/uL Hgb 11.2 L (12.0-16.0) g/dL Hct 34.6 L (36-46) % MCV 109.4 H (80-100) fL MCH 35.5 H (26-34) PG MCHC 32.4 (30-36) % RDW 14.3 (11.6-14.8) % Plt Count 51 L (150-400) X10^3/uL Neut % (Auto) 48.4 L (50-75) % Lymph % (Auto) 36.3 (25-40) % Traverse % (Auto) 12.0 (3-14) % Eos % (Auto) 1.4 L (2-4) % Baso % (Auto) 1.9 (0-2) % Neut # (Auto) 4000 (1531-6468) /uL Lymph # (Auto) 3000 (7694-7651) /uL Traverse # (Auto) 1000 H (0-900) /uL Eos # (Auto) 100 (0-450) /uL Baso # (Auto) 200 H (0-100) /uL Sodium 140 (137-145) mmol/L Potassium 3.6 (3.4-5.1) mmol/L Chloride 103 (98-107) mmol/L Carbon Dioxide 16 L (22-32) mmol/L BUN 5 L (7-17) mg/dL Creatinine 0.40 L (0.52-1.04) mg/dL Estimated GFR > 60.0 (>60) mL/min BUN/Creatinine Ratio 12.5 (6-22) Glucose 103 H (70-100) mg/dL Calcium 8.6 (8.4-10.2) mg/dL Magnesium 1.5 L (1.6-2.3) mg/dL Total Bilirubin 7.9 H (0.2-1.3) mg/dL AST 206 H (14-36) IU/L ALT 67 H (9-52) IU/L Alkaline Phosphatase 158 H (38-126) U/L Total Protein 9.0 H (6.3-8.2) g/dL Albumin 4.1 (3.5-5.0) g/dL Globulin 4.9 H (1.7-4.1) g/dL Albumin/Globulin Ratio 0.8 L (1.0-2.8) Lipase (23-300) U/L Prolactin 207.2 H (3.0-18.6) ng/mL Ethyl Alcohol 20 mg/dL 07/13/18 Range/Units 18:20 WBC (4.5-11.0) X10^3/uL RBC (4.0-5.2) X10^6/uL Hgb (12.0-16.0) g/dL Hct (36-46) % MCV (80-100) fL MCH (26-34) PG MCHC (30-36) % RDW (11.6-14.8) % Plt Count (150-400) X10^3/uL Neut % (Auto) (50-75) % Lymph % (Auto) (25-40) % Traverse % (Auto) (3-14) % Eos % (Auto) (2-4) % Baso % (Auto) (0-2) % Neut # (Auto) (5614-1085) /uL Lymph # (Auto) (2428-4370) /uL Traverse # (Auto) (0-900) /uL Eos # (Auto) (0-450) /uL Baso # (Auto) (0-100) /uL Sodium (137-145) mmol/L Potassium (3.4-5.1) mmol/L Chloride (98-107) mmol/L Carbon Dioxide (22-32) mmol/L BUN (7-17) mg/dL Creatinine (0.52-1.04) mg/dL Estimated GFR (>60) mL/min BUN/Creatinine Ratio (6-22) Glucose (70-100) mg/dL Calcium (8.4-10.2) mg/dL Magnesium (1.6-2.3) mg/dL Total Bilirubin (0.2-1.3) mg/dL AST (14-36) IU/L ALT (9-52) IU/L Alkaline Phosphatase (38-126) U/L Total Protein (6.3-8.2) g/dL Albumin (3.5-5.0) g/dL Globulin (1.7-4.1) g/dL Albumin/Globulin Ratio (1.0-2.8) Lipase 223 (23-300) U/L Prolactin (3.0-18.6) ng/mL Ethyl Alcohol mg/dL Point of Care Testing Glucose POC [address] scan - head: Radiologist's impression: PROCEDURE: CT HEAD/BRAIN WO CON INDICATIONS: seizure low platelets etoh TECHNIQUE: Noncontrast 4.5 mm thick angled axial sections acquired from the foramen magnum to the vertex, with coronal and sagittal reformats. For radiation dose reduction, the following was used: automated exposure control, adjustment of mA and/or kV according to patient size. COMPARISON: 10/13/17. FINDINGS: Image quality: Excellent. CSF spaces: Basal cisterns are patent. No extra-axial fluid collections. Ventricles are normal in size and shape. Brain: No midline shift. No intracranial masses or hemorrhage. De La Garza-white matter interface is normal. Skull and face: Calvarium and visualized facial bones are intact, without suspicious lesions. Sinuses: Visualized sinuses and mastoids are clear. IMPRESSION: Stable CT evaluation of the head without acute intracranial abnormalities. No calvarial fractures. Dictated by: Adithya Lea M.D. on 07/13/2018 at 18:48 ECG Data Attestation: I personally reviewed and interpreted this ECG as follows: Prior ECG tracings: not available for review Interpretation: Sinus rhythm rate [address] changes. T-wave inversion noted in lead 3 only no priors to compare MDM Narrative Medical decision making narrative: 7:10 p.m. patient had another seizure in the ED. Ativan 2 mg given. Thymine also ordered Will be admitted for alcohol withdrawal. I spoke with Dr. Powell, who has been updated on patients symptoms happily accept the patient to the ICU. Discharge Plan Departure Patient Disposition: Admitted As Inpatient Clinical Impression: Seizure, Thrombocytopenia Alcohol withdrawal Qualifiers: Complication of substance-induced condition: with unspecified complication Qualified Code(s): F10.239 - Alcohol dependence with withdrawal, unspecified Discharge Date/Time: 07/13/18 20:19 Interventions: ED Discharge Assessment Last Done: 07/13/18 20:00 Admit Date/Time: 07/13/18 19:43 Admit Provider: Nuvia Powell
[2018-07-13 18:31] LABS: Alanine Aminotransferase 67 IU/L (9-52); Albumin 4.1 g/dL (3.5-5.0); Albumin Globulin Ratio 0.8 (1.0-2.8); Alkaline Phosphatase 158 U/L (38-126); Aspartate Aminotransferase 206 IU/L (14-36); BUN Creatinine Ratio 12.5 (6-22); Bilirubin Total 7.9 mg/dL (0.2-1.3); Blood Urea Nitrogen 5 mg/dL (7-17); Calcium 8.6 mg/dL (8.4-10.2); Carbon Dioxide 16 mmol/L (22-32); Chloride 103 mmol/L (98-107); Estimated Glomerular Filt Rate > 60.0 mL/min (>60); Globulin 4.9 g/dL (1.7-4.1); Glucose 103 mg/dL (70-100); HEMOLYSIS < 15 (0-50); Magnesium 1.5 mg/dL (1.6-2.3); Potassium 3.6 mmol/L (3.4-5.1); Sodium 140 mmol/L (137-145)
[2018-07-13 18:32] LABS: Ethanol (ETOH) 20 mg/dL; Lipase 223 U/L (23-300)
[2018-07-13 18:48] LABS: Prolactin 207.2 ng/mL (3.0-18.6)
[2018-07-13] MEDS: SODIUM CHLORIDE 0.9% 1,000 ML 1000 ML IV (18:56)
[2018-07-13 18:59] VITALS: BP 99/62; PULSE 84; RESP 20; O2SAT 94
[2018-07-13] MEDS: LORazepam 2 MG/ML SYRINGE IV ×2 (19:12→22:12)
[2018-07-13 19:24] VITALS: BP 116/71; PULSE 97; RESP 18; O2SAT 93
[2018-07-13] MEDS: THIAMINE 100 MG in DEXTROSE 5 % IN WATER 50 ML 204 ML IV (19:24)
--- NOTE | 2018-07-13 19:26 | PC.NURSE ---
[address] Hu, requested to bring ativan, Pt was seizing, blood from mouth, 2mg ativan given IV push, pt rolled to right side, and suction given.
[2018-07-13 20:00] VITALS: BP 123/70; PULSE 90; RESP 16; O2SAT 99
[2018-07-13 20:20] VITALS: BP 118/64; PULSE 104; RESP 19; TEMP 37.3; O2SAT 92
[2018-07-13] MEDS: SODIUM CHLORIDE 0.9% 1,000 ML 100 ML IV (20:26)
--- NOTE | 2018-07-13 20:30 | PC.NURSE ---
ADMIT: Pt transferred from the ED and arrived to the ICU at 2004 for ETOH withdrawal and seizure x2. Pt accompanied by . Able to transfer self from bed to [facility]. Seizure precautions and pads in place. Alert to self and place only, CIWA 7. Drowsy throughout admission assessment. Difficulty talking due to biting tongue during seizures. Mouth is bloody, tongue is swollen. Given warm salt water to rinse. Scattered bruising over legs and arms. Sclera yellow. abd slightly distended, bowel tones present. Last BM yest. No nausea/vomiting. 1L bolus finished from ED, IV became dislodged and replaced. NS @100mls/hr. SpO2 90% on RA, placed on 2L. Otherwise VSS. describes long hx of ETOH abuse, has attempted to quit on multiple occasions. Pt originally from [place], [place] to the [place] 2001. no seizure activity at this time.
[2018-07-13 20:32] VITALS: BMI 26.5
[2018-07-13 21:41] LABS: Pregnancy Test Urine Negative (Negative)
--- NOTE | 2018-07-13 22:37 | PC.NURSE ---
2210: Pt becoming more agitated, wanting to leave, pulling at lines. CIWA 8, given 1mg ativan per protocol. Education on importance of staying in hospital for help with withdrawal.
[2018-07-13 23:59] LABS: Bacteria Urine None Seen; RBC Urine None Seen (0-5/HPF)
[2018-07-14] VITALS (9 sets, daily range): BP systolic 104–124; BP diastolic 44–72; PULSE 75–118; RESP 18–34; TEMP 37.1–37.4; O2SAT 91–99
--- NOTE | 2018-07-14 | DI.CT.S_ITS ---
PROCEDURE: CT ABDOMEN PELVIS W CON INDICATIONS: abn lft TECHNIQUE: After the administration of intravenous contrast, 5 mm thick sections acquired from the diaphragm to the symphysis. 5 mm coronal and sagittal reformats were acquired. For radiation dose reduction, the following was used: automated exposure control, adjustment of mA and/or kV according to patient size. COMPARISON: None. FINDINGS: Image quality: Excellent. ABDOMEN: Lung bases: Lung bases are clear. Heart size is normal. Solid organs: Liver is enlarged. Nodular contour of the liver. Mild hepatic steatosis. Gallbladder surgically absent. Biliary system is non dilated. Pancreas enhances normally. Spleen is normal in size and enhancement. No adrenal nodules. Kidneys demonstrate normal size and enhancement, without hydronephrosis. Peritoneum and bowel: Bowel loops demonstrate normal wall thickness and caliber. No free fluid or air. Colonic diverticulosis is seen without evidence of acute complication. The appendix is within normal limits. Numerous gastrohepatic and periesophageal varices. Mild hazy attenuation in the mesentery and paracolic gutters without definite focality. Nodes and vessels: No retroperitoneal or mesenteric adenopathy by size criteria. Aorta and inferior vena cava are normal in size. Miscellaneous: No ventral hernias. PELVIS: Genitourinary: Bladder wall thickness is normal. Miscellaneous: No inguinal hernias or adenopathy. Bones: No suspicious bony lesions. No vertebral body compression fractures. IMPRESSION: Cirrhosis of the liver. Status post cholecystectomy. Normal appendix. Incidental colonic diverticulosis. Dictated by: Shankar Hogue M.D. on 07/14/2018 at 11:57 Approved by: Shankar Hogue M.D. on 07/14/2018 at 12:00
[2018-07-14 00:01] LABS: Bilirubin Urine UA 1+ (NEGATIVE); Glucose Urine UA NEGATIVE (Negative); Ketones Urine UA TRACE (NEGATIVE); Leukocyte Esterase Urine UA NEGATIVE (NEGATIVE); Nitrite Urine UA NEGATIVE (Negative); Occult Blood Urine UA TRACE-LYSED (Negative); Protein Urine UA TRACE (Negative); Specific Gravity Urine UA 1.025 (1.000-1.035); pH Urine UA 5.5 (4.5-8.0)
[2018-07-14 00:09] LABS: Urine Amphetamines Negative (Negative); Urine Barbiturates Negative (Negative); Urine Benzodiazepines Positive (Negative); Urine Cocaine Negative (Negative); Urine MDMA Negative (Negative); Urine Methadone Negative (Negative); Urine Methamphetamines Negative (Negative); Urine Morphine/Opi cutoff 2000 Negative (Negative); Urine Oxycodone Negative (Negative); Urine Phencyclidine Negative (Negative); Urine Tetrahydrocannabinol Negative (Negative); Urine Tricyclic Antidepressant Negative (Negative)
[2018-07-14 00:12] LABS: Appearance Urine UA SL CLOUDY; Color Urine UA ORANGE
[2018-07-14 00:13] LABS: Culture Indicated Urine Cult Not Indicated; Hyaline Casts Urine 5-10/LPF; Ictotest Urine Positive (Negative); Squamous Epithelial Cell Urine 1-5 /HPF (0-5/HPF); WBC Urine 0-1/HPF (0-5/HPF)
[2018-07-14] MEDS: LORazepam 2 MG/ML SYRINGE IV ×12 (00:20→22:59)
[2018-07-14] MEDS: SODIUM CHLORIDE 0.9% 1,000 ML 100 ML IV ×2 (06:36→17:21)
--- NOTE | 2018-07-14 07:03 | PC.NURSE ---
NOC Shift: Pt with ETOH withdrawals CIWA score throughout shift 13 to 15. Ativan per protocol. Pt is confused to situation, date. Mostly cooperative, but at other times pt attempts to get up, pulls off wires, clothing and wants to leave. When OOB to commode pt is very unsteady w/severe tremors. Noted to not be able to move right leg, drags leg. On inspection pt has large swelling on buttock, hip questionable hematoma. VSS, SR on tele. IVF's continue, pt remains NPO. Seizure precautions enforced. No sz activity noted during shift. ICU care.
[2018-07-14 09:32] LABS: Add Manual Diff / Slide Review NO; Basophils Absolute Auto 100 /uL (0-100); Basophils Percent Auto 1.2 % (0-2); Eosinophils Absolute Auto 100 /uL (0-450); Eosinophils Percent Auto 1.6 % (2-4); Hematocrit 29.5 % (36-46); Hemoglobin 10.1 g/dL (12.0-16.0); Lymphocytes Absolute Auto 1400 /uL (1100-4500); Lymphocytes Percent Auto 21.8 % (25-40); Mean Corpuscular HGB Conc 34.2 % (30-36); Mean Corpuscular Hemoglobin 36.5 PG (26-34); Mean Corpuscular Volume 106.7 fL (80-100); Monocytes Absolute Auto 800 /uL (0-900); Neutrophils Absolute Auto 4000 /uL (1500-7000); Neutrophils Percent Auto 62.4 % (50-75); Platelet Count 39 X10^3/uL (150-400); Red Blood Cell Count 2.77 X10^6/uL (4.0-5.2); Red Cell Distribution Width 13.9 % (11.6-14.8); White Blood Cell Count 6.4 X10^3/uL (4.5-11.0)
[2018-07-14 09:44] LABS: INR 1.8 (0.9-1.3); Prothrombin Time 20.7 SECONDS (10.1-12.7)
[2018-07-14 09:48] LABS: Alanine Aminotransferase 62 IU/L (9-52); Albumin 3.4 g/dL (3.5-5.0); Albumin Globulin Ratio 0.8 (1.0-2.8); Alkaline Phosphatase 112 U/L (38-126); Aspartate Aminotransferase 164 IU/L (14-36); BUN Creatinine Ratio 22.5 (6-22); Bilirubin Total 8.7 mg/dL (0.2-1.3); Blood Urea Nitrogen 9 mg/dL (7-17); Calcium 8.1 mg/dL (8.4-10.2); Carbon Dioxide 24 mmol/L (22-32); Chloride 108 mmol/L (98-107); Estimated Glomerular Filt Rate > 60.0 mL/min (>60); Globulin 4.1 g/dL (1.7-4.1); Glucose 102 mg/dL (70-100); HEMOLYSIS < 15 (0-50); Potassium 3.4 mmol/L (3.4-5.1); Sodium 140 mmol/L (137-145); Total Protein 7.5 g/dL (6.3-8.2)
[2018-07-14 09:51] LABS: Platelet Estimate Decreased on smear
--- NOTE | 2018-07-14 10:25 | P.HP_ITS ---
History of Present Illness Date Patient Seen: 07/14/18 Time Patient Seen: 09:15 Chief complaint: Seizure, etoh withdrawl Narrative: Seizure. Patient admitted last night through the emergency room. History is from the chart and from patient's male partner this morning. Approximately 5:00 a.m. last night patient went to the bathroom at her house that she was nauseated to throw up. Male partner her throwing up and then her but reactant in bathroom when in there and she was on the floor she shaking jittery upper lower extremities stopping unresponsive biting her tongue. No incontinence patient called 911 he relates that this seizure activity lasted perhaps up to 5 minutes. Paramedics came put her on a on a stretcher and he relates that she was verbal and commented that she did not want to go the hospital but she acquiesced. She apparently was given IV fluids unclear whether not she received medication underweight hospital. She was evaluated in the hospital and apparently had a 2nd seizure that was indeed witness by physician. Given 2 mg of IV lorazepam and patient has had no further seizures since she has been here far as we are aware. This morning patient is sedated from the lorazepam that is been given as according to the protocol. As stated this history now is from male partner. She has had alcohol issues for years apparently apparently has been in detox uni t for week 2 different times. Has had no apparent seizures that he is aware of. Several years ago she stopped drinking for a week apparently had some hallucinations and some withdrawal symptoms at that time lasting about a week but resolved. He mention approximately 2 months ago he noticed that her eyes were turning yellow he mentioned this to her and she discussed upset with him. Additionally he she was having low red spots on her chest and back that appeared about the same time. Recently seen in the emergency room for epistaxis this required several up really obey evaluations was seen by ear nose and throat yesterday and was unable to find the actual bleeding site but presumed it was from her abnormal test. Patient has no other known history of bleeding disorder as far as we will wear. No history of melena or hematochezia as far as we are aware. Patient typically drink at least a bottle of wine daily it is believed that her last drink was on Monday in fact she did finish her last drink. In the past she drank vodka but has only been drinking wine buying the nicolle Lao that is in the refrigerator. No history of liver disorder. 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 Other medical problems of has store clearly have been her reactive airway and ap parently a fever for which she was using Flonase nasal spray. Chart review shows her to have had issues with depression and perhaps bipolar. Has been on medications but none recently. Patient also has attempted to quit smoking by vaping. Patient History Medical History Chronic migraine (Chronic) Major depressive disorder, recurrent, moderate (Chronic 12/31/10) Gastro-esophageal reflux (Chronic 12/31/10) Allergic rhinitis (Chronic) Asthma (Chronic) Bipolar disorder (Chronic) Duodenal ulcer (Chronic 09/2009) Surgical History Status post endoscopy (Resolved 09/2009) Family History Other Alcoholism Asthma Social History household members: spouse Smoking Status: Current some day smoker alcohol intake: current Family & Social History Family History Other Alcoholism Asthma Social History: household members spouse Prior Living Arrangements House Safety & Behavioral: Feels Safe in Current Yes Environment Been Physically Hurt or No Threatened By a Person Tobacco & Substance use: Tobacco type e-cigarettes Smoking Status Current some day smoker alcohol intake current alcohol intake frequency 3 or more drinks per day Substance Use Type does not use Meds Home Medications Medication Instructions Recorded Confirmed Type loratadine 10 mg tablet 10 mg PO DAILY 10/06/17 07/13/18 History albuterol sulfate HFA 90 2 inhalation INHALATION Q4HP PRN 10/25/17 07/13/18 Rx mcg/actuation aerosol inhaler #200 inhalation fluticasone furoate 200 1 inhalation INHALATION DAILY #28 01/29/18 07/13/18 Rx mcg-vilanterol 25 mcg/dose each inhalation powder amoxicillin 875 mg-potassium 1 tab PO BID 10 Days #20 tab 07/11/18 07/13/18 Rx clavulanate 125 mg tablet fluticasone propionate 1 spray INTRANASAL DIRECTED 07/11/18 07/13/18 History Allergies Allergy/AdvReac Type Severity Reaction Status Date / Time aspirin AdvReac Verified 07/13/18 20:31 Review of Systems Review of Systems All systems reviewed & are unremarkable except as noted in HPI and below Exam Vital Signs (past 8 hours): - 07/14/18 04:00 07/14/18 08:30 Temperature 98.8 F 99.1 F Pulse Rate 89 77 Respiratory Rate 23 18 Blood Pressure 109/47 L 104/44 L Pulse Oximetry 92 99 Oxygen Delivery Method Nasal Cannula Narrative Exam Narrative: At the time of this dictation patient sleeping and sedated secondary to the medication. Further physical exam to be performed later when she awakens from the medication Objective Labs Result Diagrams: 07/14/18 09:20 07/14/18 09:20 Labs: Laboratory Results - last 24 hr 07/13/18 07/13/18 07/13/18 18:20 18:20 18:20 WBC 8.3 RBC 3.17 L Hgb 11.2 L Hct 34.6 L MCV 109.4 H MCH 35.5 H MCHC 32.4 RDW 14.3 Plt Count 51 L Neut % (Auto) 48.4 L Lymph % (Auto) 36.3 [place] % (Auto) 12.0 Eos % (Auto) 1.4 L Baso % (Auto) 1.9 Neut # (Auto) 4000 Lymph # (Auto) 3000 [place] # (Auto) 1000 H Eos # (Auto) 100 Baso # (Auto) 200 H Platelet Estimate RBC Morphology PT INR Sodium 140 Potassium 3.6 Chloride 103 Carbon Dioxide 16 L BUN 5 L Creatinine 0.40 L Estimated GFR > 60.0 BUN/Creatinine Ratio 12.5 Glucose 103 H Calcium 8.6 Magnesium 1.5 L Total Bilirubin 7.9 H AST 206 H ALT 67 H Alkaline Phosphatase 158 H Total Protein 9.0 H Albumin 4.1 Globulin 4.9 H Albumin/Globulin Ratio 0.8 L Lipase Prolactin 207.2 H Urine Color Urine Appearance Urine pH Ur Specific [place] Urine Protein Urine Glucose (UA) Urine Ketones Urine Occult Blood Urine Nitrate Urine Bilirubin Urine Ictotest Urine Urobilinogen Ur Leukocyte Esterase Urine RBC Urine WBC Ur Squamous Epith Cells Urine Bacteria Hyaline Casts Ur Culture Indicated? Urine Test Nasal Screen MRSA (PCR) Urine Opiates Screen Ur Oxycodone Screen Urine Methadone Screen Ur Barbiturates Screen U Tricyclic Antidepress Ur Phencyclidine Scrn Ur Amphetamines Screen U Methamphetamines Scrn Ur MDMA Scrn (Ecstasy) U Benzodiazepines Scrn Urine Cocaine Screen U Marijuana (THC) Screen Ethyl Alcohol 20 07/13/18 07/13/18 07/13/18 18:20 21:13 21:20 WBC RBC Hgb Hct MCV MCH MCHC RDW Plt Count Neut % (Auto) Lymph % (Auto) [place] % (Auto) Eos % (Auto) Baso % (Auto) Neut # (Auto) Lymph # (Auto) [place] # (Auto) Eos # (Auto) Baso # (Auto) Platelet Estimate RBC Morphology PT INR Sodium Potassium Chloride Carbon Dioxide BUN Creatinine Estimated GFR BUN/Creatinine Ratio Glucose Calcium Magnesium Total Bilirubin AST ALT Alkaline Phosphatase Total Protein Albumin Globulin Albumin/Globulin Ratio Lipase 223 Prolactin Urine Color [place] Urine Appearance Sl cloudy Urine pH 5.5 Ur Specific [place] 1.025 Urine Protein Trace H Urine Glucose (UA) Negative Urine Ketones Trace H Urine Occult Blood Trace-lysed Urine Nitrate Negative Urine Bilirubin 1+ H Urine Ictotest Positive H Urine Urobilinogen 1.0 Ur Leukocyte Esterase Negative Urine RBC None seen Urine WBC 0-1/hpf Ur Squamous Epith Cells 1-5 /hpf Urine Bacteria None seen Hyaline Casts 5-10/lpf Ur Culture Indicated? Cult not indicated Urine Test Negative Nasal Screen MRSA (PCR) Urine Opiates Screen Ur Oxycodone Screen Urine Methadone Screen Ur Barbiturates Screen U Tricyclic Antidepress Ur Phencyclidine Scrn Ur Amphetamines Screen U Methamphetamines Scrn Ur MDMA Scrn (Ecstasy) U Benzodiazepines Scrn Urine Cocaine Screen U Marijuana (THC) Screen Ethyl Alcohol 07/13/18 07/13/18 07/14/18 21:20 21:30 09:20 WBC 6.4 RBC 2.77 L Hgb 10.1 L Hct 29.5 L MCV 106.7 H MCH 36.5 H MCHC 34.2 RDW 13.9 Plt Count 39 L Neut % (Auto) 62.4 Lymph % (Auto) 21.8 L [place] % (Auto) 13.0 Eos % (Auto) 1.6 L Baso % (Auto) 1.2 Neut # (Auto) 4000 Lymph # (Auto) 1400 [place] # (Auto) 800 Eos # (Auto) 100 Baso # (Auto) 100 Platelet Estimate Decreased on smear RBC Morphology Not Reportable PT INR Sodium Potassium Chloride Carbon Dioxide BUN Creatinine Estimated GFR BUN/Creatinine Ratio Glucose Calcium Magnesium Total Bilirubin AST ALT Alkaline Phosphatase Total Protein Albumin Globulin Albumin/Globulin Ratio Lipase Prolactin Urine Color Urine Appearance Urine pH Ur Specific [place] Urine Protein Urine Glucose (UA) Urine Ketones Urine Occult Blood Urine Nitrate Urine Bilirubin Urine Ictotest Urine Urobilinogen Ur Leukocyte Esterase Urine RBC Urine WBC Ur Squamous Epith Cells Urine Bacteria Hyaline Casts Ur Culture Indicated? Urine Test Nasal Screen MRSA (PCR) Negative for mrsa Urine Opiates Screen Negative Ur Oxycodone Screen Negative Urine Methadone Screen Negative Ur Barbiturates Screen Negative U Tricyclic Antidepress Negative Ur Phencyclidine Scrn Negative Ur Amphetamines Screen Negative U Methamphetamines Scrn Negative Ur MDMA Scrn (Ecstasy) Negative U Benzodiazepines Scrn Positive H Urine Cocaine Screen Negative U Marijuana (THC) Screen Negative Ethyl Alcohol 07/14/18 07/14/18 09:20 09:20 WBC RBC Hgb Hct MCV MCH MCHC RDW Plt Count Neut % (Auto) Lymph % (Auto) [place] % (Auto) Eos % (Auto) Baso % (Auto) Neut # (Auto) Lymph # (Auto) [place] # (Auto) Eos # (Auto) Baso # (Auto) Platelet Estimate RBC Morphology PT 20.7 H INR 1.8 H Sodium 140 Potassium 3.4 Chloride 108 H Carbon Dioxide 24 BUN 9 Creatinine 0.40 L Estimated GFR > 60.0 BUN/Creatinine Ratio 22.5 H Glucose 102 H Calcium 8.1 L Magnesium Total Bilirubin 8.7 H AST 164 H ALT 62 H Alkaline Phosphatase 112 Total Protein 7.5 Albumin 3.4 L Globulin 4.1 Albumin/Globulin Ratio 0.8 L Lipase Prolactin Urine Color Urine Appearance Urine pH Ur Specific [place] Urine Protein Urine Glucose (UA) Urine Ketones Urine Occult Blood Urine Nitrate Urine Bilirubin Urine Ictotest Urine Urobilinogen Ur Leukocyte Esterase Urine RBC Urine WBC Ur Squamous Epith Cells Urine Bacteria Hyaline Casts Ur Culture Indicated? Urine Test Nasal Screen MRSA (PCR) Urine Opiates Screen Ur Oxycodone Screen Urine Methadone Screen Ur Barbiturates Screen U Tricyclic Antidepress Ur Phencyclidine Scrn Ur Amphetamines Screen U Methamphetamines Scrn Ur MDMA Scrn (Ecstasy) U Benzodiazepines Scrn Urine Cocaine Screen U Marijuana (THC) Screen Ethyl Alcohol Labs reviewed. Of significance are thrombocytopenia, abnormal liver function tests, prolonged coagulation, low magnesium. Assessment & Plan Assessment & Plan narrative: 1. Presumed generalized seizure presumed secondary to alcohol withdrawal. Curious that her alcohol level was 20 this is drawn Monday night and presumably she had her last drink on Monday. This raises question whether not her seizures are from other reason besides alcohol withdrawal. Further evaluation pending MRI. 2. Obvious alcohol issues. 3. Abnormal liver function tests it appears that her liver is significantly affected due to the fact of her jaundice and that fact that she has a prolonged coagulation studies. Further studies forthcoming with ultrasound and CT of her abdomen hepatitis panel ordered also. Patient obviously need to stop drinking altogether as this may well be a progressive problem and may end up with complete liver failure. Number 4. Low magnesium. 5. Thrombocytopenia an issue but at a level that is acceptable most likely secondary to her alcohol. Social Service to be consulted for consideration of inpatient alcohol rehab when she is medically stable
[2018-07-14] MEDS: MAGNESIUM SULFATE 2 GM/50 ML PIGGYBACK IV (10:42)
[2018-07-14 11:21] LABS: Hepatitis B Surface Antigen NEGATIVE s/c (NEGATIVE)
[2018-07-14 11:39] LABS: Hep C Virus Ab w/Reflex Quant NEGATIVE s/c (NEGATIVE)
--- NOTE | 2018-07-14 12:56 | P.PN_ITS ---
Subjective Date Patient Seen: 07/14/18 Time Patient Seen: 12:52 Interval history: Seizures Patient more alert now than she was earlier this morning when I saw her. Presumably because the effects of medication has worn off. She does not have too many complaints stills very sedated and somnolent. She feels like she has sore back perhaps from bruising. She is also interested in some clear liquid was given some Gatorade by her partner. Exam Vital Signs (past 8 hours): - 07/14/18 08:00 07/14/18 08:30 07/14/18 11:47 Temperature 99.1 F 99.3 F Pulse Rate 77 75 Respiratory Rate 18 18 Blood Pressure 104/44 L 121/68 Pulse Oximetry 97 99 94 Oxygen Delivery Method Room Air Oxygen Flow Rate 0 Narrative Exam Narrative: Exam now she is obviously jaundiced she has clear rectus and she has jaundice skin. She has no asterixis. She has multiple bruises on her shoulders and knees. Her tongue is swollen and bruised and abraded somewhat. Head shows no sign of trauma Eyes otherwise normal Neck is supple Lungs clear heart regular rhythm no murmur gallop Breasts not examined Abdomen soft nontender no masses Genital exam not performed Extremities show no signs clubbing or edema Neurologically she has pr every sedated she has no asymmetry of her neurologic exam Objective Labs Result Diagrams: 07/14/18 09:20 07/14/18 09:20 Labs: Laboratory Results - last 24 hr 07/13/18 07/13/18 07/13/18 18:20 18:20 18:20 WBC 8.3 RBC 3.17 L Hgb 11.2 L Hct 34.6 L MCV 109.4 H MCH 35.5 H MCHC 32.4 RDW 14.3 Plt Count 51 L Neut % (Auto) 48.4 L Lymph % (Auto) 36.3 [place] % (Auto) 12.0 Eos % (Auto) 1.4 L Baso % (Auto) 1.9 Neut # (Auto) 4000 Lymph # (Auto) 3000 [place] # (Auto) 1000 H Eos # (Auto) 100 Baso # (Auto) 200 H Platelet Estimate RBC Morphology PT INR Sodium 140 Potassium 3.6 Chloride 103 Carbon Dioxide 16 L BUN 5 L Creatinine 0.40 L Estimated GFR > 60.0 BUN/Creatinine Ratio 12.5 Glucose 103 H Calcium 8.6 Magnesium 1.5 L Total Bilirubin 7.9 H AST 206 H ALT 67 H Alkaline Phosphatase 158 H Total Protein 9.0 H Albumin 4.1 Globulin 4.9 H Albumin/Globulin Ratio 0.8 L Lipase Prolactin 207.2 H Urine Color Urine Appearance Urine pH Ur Specific [place] Urine Protein Urine Glucose (UA) Urine Ketones Urine Occult Blood Urine Nitrate Urine Bilirubin Urine Ictotest Urine Urobilinogen Ur Leukocyte Esterase Urine RBC Urine WBC Ur Squamous Epith Cells Urine Bacteria Hyaline Casts Ur Culture Indicated? Urine Test Nasal Screen MRSA (PCR) Urine Opiates Screen Ur Oxycodone Screen Urine Methadone Screen Ur Barbiturates Screen U Tricyclic Antidepress Ur Phencyclidine Scrn Ur Amphetamines Screen U Methamphetamines Scrn Ur MDMA Scrn (Ecstasy) U Benzodiazepines Scrn Urine Cocaine Screen U Marijuana (THC) Screen Ethyl Alcohol 20 Hep Bs Antigen Hepatitis C Antibody 07/13/18 07/13/18 07/13/18 18:20 21:13 21:20 WBC RBC Hgb Hct MCV MCH MCHC RDW Plt Count Neut % (Auto) Lymph % (Auto) [place] % (Auto) Eos % (Auto) Baso % (Auto) Neut # (Auto) Lymph # (Auto) [place] # (Auto) Eos # (Auto) Baso # (Auto) Platelet Estimate RBC Morphology PT INR Sodium Potassium Chloride Carbon Dioxide BUN Creatinine Estimated GFR BUN/Creatinine Ratio Glucose Calcium Magnesium Total Bilirubin AST ALT Alkaline Phosphatase Total Protein Albumin Globulin Albumin/Globulin Ratio Lipase 223 Prolactin Urine Color [place] Urine Appearance Sl cloudy Urine pH 5.5 Ur Specific [place] 1.025 Urine Protein Trace H Urine Glucose (UA) Negative Urine Ketones Trace H Urine Occult Blood Trace-lysed Urine Nitrate Negative Urine Bilirubin 1+ H Urine Ictotest Positive H Urine Urobilinogen 1.0 Ur Leukocyte Esterase Negative Urine RBC None seen Urine WBC 0-1/hpf Ur Squamous Epith Cells 1-5 /hpf Urine Bacteria None seen Hyaline Casts 5-10/lpf Ur Culture Indicated? Cult not indicated Urine Test Negative Nasal Screen MRSA (PCR) Urine Opiates Screen Ur Oxycodone Screen Urine Methadone Screen Ur Barbiturates Screen U Tricyclic Antidepress Ur Phencyclidine Scrn Ur Amphetamines Screen U Methamphetamines Scrn Ur MDMA Scrn (Ecstasy) U Benzodiazepines Scrn Urine Cocaine Screen U Marijuana (THC) Screen Ethyl Alcohol Hep Bs Antigen Hepatitis C Antibody 05/12/2207/13/18 07/14/18 21:20 21:30 09:20 WBC 6.4 RBC 2.77 L Hgb 10.1 L Hct 29.5 L MCV 106.7 H MCH 36.5 H MCHC 34.2 RDW 13.9 Plt Count 39 L Neut % (Auto) 62.4 Lymph % (Auto) 21.8 L [place] % (Auto) 13.0 Eos % (Auto) 1.6 L Baso % (Auto) 1.2 Neut # (Auto) 4000 Lymph # (Auto) 1400 [place] # (Auto) 800 Eos # (Auto) 100 Baso # (Auto) 100 Platelet Estimate Decreased on smear RBC Morphology Not Reportable PT INR Sodium Potassium Chloride Carbon Dioxide BUN Creatinine Estimated GFR BUN/Creatinine Ratio Glucose Calcium Magnesium Total Bilirubin AST ALT Alkaline Phosphatase Total Protein Albumin Globulin Albumin/Globulin Ratio Lipase Prolactin Urine Color Urine Appearance Urine pH Ur Specific [place] Urine Protein Urine Glucose (UA) Urine Ketones Urine Occult Blood Urine Nitrate Urine Bilirubin Urine Ictotest Urine Urobilinogen Ur Leukocyte Esterase Urine RBC Urine WBC Ur Squamous Epith Cells Urine Bacteria Hyaline Casts Ur Culture Indicated? Urine Test Nasal Screen MRSA (PCR) Negative for mrsa Urine Opiates Screen Negative Ur Oxycodone Screen Negative Urine Methadone Screen Negative Ur Barbiturates Screen Negative U Tricyclic Antidepress Negative Ur Phencyclidine Scrn Negative Ur Amphetamines Screen Negative U Methamphetamines Scrn Negative Ur MDMA Scrn (Ecstasy) Negative U Benzodiazepines Scrn Positive H Urine Cocaine Screen Negative U Marijuana (THC) Screen Negative Ethyl Alcohol Hep Bs Antigen Hepatitis C Antibody 07/14/18 07/14/18 07/14/18 09:20 09:20 09:20 WBC RBC Hgb Hct MCV MCH MCHC RDW Plt Count Neut % (Auto) Lymph % (Auto) [place] % (Auto) Eos % (Auto) Baso % (Auto) Neut # (Auto) Lymph # (Auto) [place] # (Auto) Eos # (Auto) Baso # (Auto) Platelet Estimate RBC Morphology PT 20.7 H INR 1.8 H Sodium 140 Potassium 3.4 Chloride 108 H Carbon Dioxide 24 BUN 9 Creatinine 0.40 L Estimated GFR > 60.0 BUN/Creatinine Ratio 22.5 H Glucose 102 H Calcium 8.1 L Magnesium Total Bilirubin 8.7 H AST 164 H ALT 62 H Alkaline Phosphatase 112 Total Protein 7.5 Albumin 3.4 L Globulin 4.1 Albumin/Globulin Ratio 0.8 L Lipase Prolactin Urine Color Urine Appearance Urine pH Ur Specific [place] Urine Protein Urine Glucose (UA) Urine Ketones Urine Occult Blood Urine Nitrate Urine Bilirubin Urine Ictotest Urine Urobilinogen Ur Leukocyte Esterase Urine RBC Urine WBC Ur Squamous Epith Cells Urine Bacteria Hyaline Casts Ur Culture Indicated? 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 Additionally presumably has alcohol withdrawal seizures. Patient having significant decrease in her platelets. Additionally her coagulopathy has not not improved. May need to have be treated if worsens Had preferred order MRI of the brain to rule out other etiologies apparently unable to tolerate same. Hepatitis panel negative for any acute infectious hepatitis. Had a long discussion with the partner about prognosis that patient must quit drinking otherwise she hit would end up with her . We also talked about progression of liver disease and whether not the liver transplant may be something in the future Will keep an eye on her coagulopathy and her platelets as well as liver function tests
--- NOTE | 2018-07-14 14:02 | PC.NURSE ---
pt requiring frequent dosing with iv lorazepam this am- she is doing better this afternoon- speech is still thick due to biting of tongue during sx - no evidence of further seizures after ED last pm, taking small amounts of po liquids- ciwa scores 21/, patient is jaundiced and requires assist to use bsc and at times is incontinent- multiple bruising noted over entire body- spouse at bedside most of shift and is helpful with her care-
[2018-07-14] MEDS: FOLIC ACID 1 MG TABLET PO (15:34)
[2018-07-14] MEDS: LORATADINE 10 MG TABLET PO (15:35)
[2018-07-14] MEDS: THIAMINE 100 MG TABLET PO (15:35)
[2018-07-14] MEDS: MULTIVITAMIN 1 TABLET 1 TAB PO (15:35)
[2018-07-15] VITALS (9 sets, daily range): BP systolic 108–139; BP diastolic 55–77; PULSE 73–109; RESP 19–34; TEMP 35.7–38.2; O2SAT 93–98
[2018-07-15] MEDS: LORazepam 2 MG/ML SYRINGE IV ×21 (01:34→23:50)
[2018-07-15] MEDS: SODIUM CHLORIDE 0.9% 1,000 ML 100 ML IV (02:52)
[2018-07-15 05:00] LABS: Hematocrit 29.5 % (36-46); Mean Corpuscular Hemoglobin 37.2 PG (26-34); Mean Corpuscular Volume 109.6 fL (80-100); Platelet Count 45 X10^3/uL (150-400); Red Blood Cell Count 2.69 X10^6/uL (4.0-5.2); Red Cell Distribution Width 14.1 % (11.6-14.8); White Blood Cell Count 7.6 X10^3/uL (4.5-11.0)
[2018-07-15 05:02] LABS: Alanine Aminotransferase 57 IU/L (9-52); Albumin 3.3 g/dL (3.5-5.0); Albumin Globulin Ratio 0.8 (1.0-2.8); Alkaline Phosphatase 99 U/L (38-126); Aspartate Aminotransferase 147 IU/L (14-36); BUN Creatinine Ratio 22.5 (6-22); Blood Urea Nitrogen 9 mg/dL (7-17); Calcium 8.3 mg/dL (8.4-10.2); Carbon Dioxide 22 mmol/L (22-32); Chloride 111 mmol/L (98-107); Estimated Glomerular Filt Rate > 60.0 mL/min (>60); Globulin 4.1 g/dL (1.7-4.1); Glucose 93 mg/dL (70-100); HEMOLYSIS < 15 (0-50); Potassium 3.6 mmol/L (3.4-5.1); Sodium 141 mmol/L (137-145); Total Protein 7.4 g/dL (6.3-8.2)
[2018-07-15 05:17] LABS: Add Manual Diff / Slide Review YES
[2018-07-15] MEDS: HALOPERIDOL 5 MG/ML VIAL IV ×6 (06:04→23:50)
--- NOTE | 2018-07-15 06:50 | PC.NURSE ---
NOC Shift: Pt day 2 active CIWA post seizure. Has had no noted seizures through this shift. Pt increasingly confused and belligerent to staff escalating throughout shift to CIWA scores above 20 to 23. Pt with severe tremors even when lying in bed, increasingly difficult to pivot pt to commode pt cannot stand or hold up own weight requiring staff to almost lift her back to bed, otherwise incontinent. Pt now yelling and inconsolable. ST on tele up to 130, RR 30's sats stable. Total of 14mg Ativan given through shift w/o affect. Dr. Tran notified this AM one time dosage Haldol ordered, and order to place alcocer for pt immobility. Pt remains ICU status, needs 1:1 care management.
[2018-07-15 07:13] LABS: Neutrophils Absolute Manual 4560 /uL (3000-5900); Rouleaux 1+; Total Cells Counted 100
[2018-07-15 07:14] LABS: Platelet Estimate Decreased on smear
--- NOTE | 2018-07-15 08:50 | P.PN_ITS ---
Subjective Date Patient Seen: 07/15/18 Time Patient Seen: 08:45 Interval history: Seizures. Patient has had no seizures since admission. However she has had intermittent episodes of extreme a agitation requiring several doses of lorazepam. Eventually received a single dose of Haldol which is sedated her reasonably well so far today. She shear self is sleeping and snoring and obviously offers nothing as far as any complaints. is not here to describe any other issues. Nursing staff reports no other issues other than the agitation has responded to the Haldol. Exam Vital Signs (past 8 hours): - 07/15/18 01:30 07/15/18 04:01 Temperature 98.2 F 99.0 F Pulse Rate 90 93 H Respiratory Rate 27 H 27 H Blood Pressure 128/64 108/66 Pulse Oximetry 96 Oxygen Delivery Method Room Air Oxygen Flow Rate 0 Narrative Exam Narrative: Patient is sleeping soundly lying flat. Snoring snoring stops when she is disturbed. She appears in no distress her general exam lungs are clear heart regular rhythm no murmur gallop Abdomen normal bowel sounds no hepatosplenomegaly no apparent masses. Tongue appears low but healed. Her neurologic exam grossly is symmetric cranial nerves 2-12 intact without her cooperation. She does withdraw symmetrically to noxious stimulation to her feet calves are nontender and she has no edema Objective Labs Result Diagrams: 07/15/18 04:23 07/15/18 04:23 Labs: Laboratory Results - last 24 hr 07/14/18 07/14/18 07/14/18 09:20 09:20 09:20 WBC 6.4 RBC 2.77 L Hgb 10.1 L Hct 29.5 L MCV 106.7 H MCH 36.5 H MCHC 34.2 RDW 13.9 Plt Count 39 L Neut % (Auto) 62.4 Lymph % (Auto) 21.8 L [place] % (Auto) 13.0 Eos % (Auto) 1.6 L Baso % (Auto) 1.2 Neut # (Auto) 4000 Lymph # (Auto) 1400 [place] # (Auto) 800 Eos # (Auto) 100 Baso # (Auto) 100 Total Counted Seg Neutrophils % Lymphocytes % (Manual) Monocytes % (Manual) Eosinophils % (Manual) Basophils % (Manual) Neutrophils # (Manual) Platelet Estimate Decreased on smear RBC Morphology Not Reportable Rouleaux PT 20.7 H INR 1.8 H Sodium 140 Potassium 3.4 Chloride 108 H Carbon Dioxide 24 BUN 9 Creatinine 0.40 L Estimated GFR > 60.0 BUN/Creatinine Ratio 22.5 H Glucose 102 H Calcium 8.1 L Total Bilirubin 8.7 H AST 164 H ALT 62 H Alkaline Phosphatase 112 Ammonia Total Protein 7.5 Albumin 3.4 L Globulin 4.1 Albumin/Globulin Ratio 0.8 L Hep Bs Antigen Hepatitis C Antibody 07/14/18 07/14/18 07/15/18 09:20 14:55 04:23 WBC 7.6 RBC 2.69 L Hgb 10.0 L Hct 29.5 L MCV 109.6 H MCH 37.2 H MCHC 34.0 RDW 14.1 Plt Count 45 L Neut % (Auto) Not Reportable Lymph % (Auto) Not Reportable [place] % (Auto) Not Reportable Eos % (Auto) Not Reportable Baso % (Auto) Not Reportable Neut # (Auto) Lymph # (Auto) Not Reportable [place] # (Auto) Not Reportable Eos # (Auto) Baso # (Auto) Not Reportable Total Counted 100 Seg Neutrophils % 60.0 Lymphocytes % (Manual) 33.0 Monocytes % (Manual) 4.0 Eosinophils % (Manual) 2.0 Basophils % (Manual) 1.0 Neutrophils # (Manual) 4560 Platelet Estimate Decreased on smear RBC Morphology Not Reportable Rouleaux 1+ H PT INR Sodium Potassium Chloride Carbon Dioxide BUN Creatinine Estimated GFR BUN/Creatinine Ratio Glucose Calcium Total Bilirubin AST ALT Alkaline Phosphatase Ammonia 27.0 Total Protein Albumin Globulin Albumin/Globulin Ratio Hep Bs Antigen Negative Hepatitis C Antibody Negative 07/15/18 04:23 WBC RBC Hgb Hct MCV MCH MCHC RDW Plt Count Neut % (Auto) Lymph % (Auto) [place] % (Auto) Eos % (Auto) Baso % (Auto) Neut # (Auto) Lymph # (Auto) [place] # (Auto) Eos # (Auto) Baso # (Auto) Total Counted Seg Neutrophils % Lymphocytes % (Manual) Monocytes % (Manual) Eosinophils % (Manual) Basophils % (Manual) Neutrophils # (Manual) Platelet Estimate RBC Morphology Rouleaux PT INR Sodium 141 Potassium 3.6 Chloride 111 H Carbon Dioxide 22 BUN 9 Creatinine 0.40 L Estimated GFR > 60.0 BUN/Creatinine Ratio 22.5 H Glucose 93 Calcium 8.3 L Total Bilirubin 10.0 H AST 147 H ALT 57 H Alkaline Phosphatase 99 Ammonia Total Protein 7.4 Albumin 3.3 L Globulin 4.1 Albumin/Globulin Ratio 0.8 L Hep Bs Antigen Hepatitis C Antibody Labs reviewed from this morning of significance her hemoglobin is stable, her platelet count has increased slightly but still markedly decreased, renal function normal, bilirubin up to 10.0. Liver function tests stable. Serum ammonia level normal. This morning INR and magnesium level pending Assessment & Plan Assessment & Plan narrative: 1. Seizures have stabilize. 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 2. Still having symptoms of alcohol withdrawal with the agitation. She has been managed with medications adequately. Her otherwise she has been hemodynamically stable blood pressure normal, heart rate normal, temperature normal, oxygen saturation on room air normal. 3. Coagulopathy stable platelet count stable INR pending no evidence for bleeding at this time no treatment yet anticipating improvement as time goes on yet to be determined. 4. Ammonia level normal reassuring. 5. Renal function normal. 6. Patient appears stable. Will switch IV fluids to include sugar. Continue with medications as ordered. Long-term game crisostomo yet to be determined
--- NOTE | 2018-07-15 09:06 | CM.DPC ---
Addendum entered by BRETT Guo 07/15/18 16:00: ADD: SW checked on pt status this afternoon to determine if she was more stable for assessment but pt still not appropriate for bedside assessment at this time. SW to follow in the morning. BF Original Note: DCP Cont: SW spoke to MD (Dr. Tran) and RN outside pt's room and they confirmed that pt has continued to have high CIWA scores (20-23) with agitation and pt required Haldol for sedation and is currently not appropriate for bedside assessment at this time. Per MD, pt has a hx of 2 detox stays in the past for ETOH but seems to be quite a few years ago and no hx of ETOH admits here at [facility] but 10 years ago at another hospital. No family or Sig Other bedside yet this morning. Plan: SW will follow later today to determine if pt requiring less sedation and lower CIWA scores and if pt more appropriate to participate in bedside assessment at that time. BRETT Guo
[2018-07-15] MEDS: DEXTROSE 5%-NS W/KCL 20MEQ 1,000 ML 100 MEQ IV ×2 (10:05→18:27)
[2018-07-15 12:09] LABS: INR 1.9 (0.9-1.3); Prothrombin Time 21.8 SECONDS (10.1-12.7)
[2018-07-15 12:15] LABS: Magnesium 1.6 mg/dL (1.6-2.3)
[2018-07-16] VITALS (9 sets, daily range): BP systolic 105–135; BP diastolic 60–76; PULSE 64–118; RESP 12–28; TEMP 36.6–37.7; O2SAT 94–96
[2018-07-16] MEDS: LORazepam 2 MG/ML SYRINGE IV ×13 (00:17→12:04)
[2018-07-16] MEDS: SODIUM CHLORIDE 0.9% FLUSH 10 ML IV ×10 (01:11→06:32)
[2018-07-16] MEDS: HALOPERIDOL 5 MG/ML VIAL IV ×4 (01:47→10:45)
--- NOTE | 2018-07-16 02:30 | PC.NURSE ---
Addendum entered by Rozina Schofield R.N. 07/16/18 06:33: 0630 Pt continues to require frequent doses of Ativan/Haldol CIWA 23 to 26. Pt talking to people in room, at other times pt is clear and can answer questions appropriately. Attempts to hit, kick and pinch staff when providing care. Remains in Rx2 for safety. VSS. Addendum entered by Rozina Schofield R.N. 07/16/18 02:35: 0100 Pt continues to strike out at staff when attempting to reposition and replace equipment, clothing she pulled off despite 3 doses Ativan, one dose Haldol over past hour. Dr. Tran notified, soft wrist restraints ordered for safety of pt and staff per non-violent restraint protocol. Continue close OBS. Original Note: NOC Shift: Pt continues w/escalating CIWA scores through eves shift report, currently awake, yelling belligerently at staff, now attempting to hit, kick staff at bedside. Pulling off clothing and medical equipment, pt confused and non-consolable. Reported that she has told SO that she is seeing elephants all around the room, when pt asked if she is seeing elephants pt. yells yes. Offered po fluids, pt able to swallow w/o problem, oral care given when pt allows. Tongue wound healing. VSS, ST 120's, stable sats on room air. Continued close OBS ICU care.
[2018-07-16] MEDS: DEXTROSE 5%-NS W/KCL 20MEQ 1,000 ML 100 MEQ IV ×2 (05:35→22:50)
[2018-07-16 05:39] LABS: Basophils Absolute Auto 100 /uL (0-100); Eosinophils Absolute Auto 100 /uL (0-450); Eosinophils Percent Auto 1.8 % (2-4); Hematocrit 25.6 % (36-46); Hemoglobin 9.1 g/dL (12.0-16.0); Lymphocytes Absolute Auto 1100 /uL (1100-4500); Lymphocytes Percent Auto 19.1 % (25-40); Mean Corpuscular HGB Conc 35.4 % (30-36); Mean Corpuscular Hemoglobin 38.2 PG (26-34); Monocytes Absolute Auto 600 /uL (0-900); Monocytes Percent Auto 11.4 % (3-14); Neutrophils Absolute Auto 3800 /uL (1500-7000); Neutrophils Percent Auto 66.7 % (50-75); Platelet Count 43 X10^3/uL (150-400); Red Blood Cell Count 2.37 X10^6/uL (4.0-5.2); White Blood Cell Count 5.6 X10^3/uL (4.5-11.0)
[2018-07-16 05:42] LABS: Add Manual Diff / Slide Review SLIDE REVIEW
[2018-07-16 05:55] LABS: Alanine Aminotransferase 50 IU/L (9-52); Albumin 2.9 g/dL (3.5-5.0); Albumin Globulin Ratio 0.7 (1.0-2.8); Alkaline Phosphatase 83 U/L (38-126); Aspartate Aminotransferase 127 IU/L (14-36); BUN Creatinine Ratio 16.7 (6-22); Bilirubin Total 9.9 mg/dL (0.2-1.3); Blood Urea Nitrogen 5 mg/dL (7-17); Calcium 7.9 mg/dL (8.4-10.2); Carbon Dioxide 20 mmol/L (22-32); Chloride 112 mmol/L (98-107); Estimated Glomerular Filt Rate > 60.0 mL/min (>60); Glucose 125 mg/dL (70-100); HEMOLYSIS 19 (0-50); Potassium 3.2 mmol/L (3.4-5.1); Sodium 139 mmol/L (137-145); Total Protein 6.9 g/dL (6.3-8.2)
[2018-07-16 06:04] LABS: Magnesium 1.3 mg/dL (1.6-2.3)
[2018-07-16 06:58] LABS: Macrocytosis 1+; Platelet Estimate Decreased on smear; Polychromasia 1+
--- NOTE | 2018-07-16 08:23 | P.PN_ITS ---
Subjective Date Patient Seen: 07/16/18 Time Patient Seen: 08:17 Interval history: Patient is somnolent due to medications given over night because of agitation Patient's care over the weekend reviewed with Dr. Tran. Has been quite agitated up to the point of even considering intubating her and giving her propofol or other general anesthesia for control. Patient shows evidence of significant alcoholic hepatitis with ongoing withdrawal and/or encephalopathy from same. No evidence of active bleeding despite history of epistaxis and low platelet count, as well as her elevated INR Patient has been taking some oral liquids when she is more awake. Exam Vital Signs (past 8 hours): - 07/16/18 03:00 07/16/18 03:26 07/16/18 07:45 Temperature 99.7 F H Pulse Rate 118 H Respiratory Rate 28 H Blood Pressure 135/74 Pulse Oximetry 96 96 95 07/16/18 08:00 Temperature 99.8 F H Pulse Rate 89 Respiratory Rate 20 Blood Pressure 111/63 Pulse Oximetry 94 Oxygen Delivery Method Room Air Oxygen Flow Rate 0 Narrative Exam Narrative: Patient is somnolent and minimally responsive HEENT-unremarkable, normocephalic atraumatic Neck-no lymphadenopathy no bruits Lungs-clear anteriorly and posteriorly no wheezes no crackles good breath sounds Heart-regular rate and rhythm, no murmur, rub, or gallop. normal S1-S2 Abdomen-positive bowel tones, soft, nontender, nondistended, no hepatosplenomegaly, no masses palpable Extremities-no cyanosis clubbing or edema Objective Labs Result Diagrams: 07/16/18 04:45 07/16/18 04:45 Labs: Laboratory Results - last 24 hr 07/15/18 07/15/18 07/16/18 11:40 11:40 04:45 WBC RBC Hgb Hct MCV MCH MCHC RDW Plt Count Neut % (Auto) Lymph % (Auto) [place] % (Auto) Eos % (Auto) Baso % (Auto) Neut # (Auto) Lymph # (Auto) [place] # (Auto) Eos # (Auto) Baso # (Auto) Platelet Estimate RBC Morphology Polychromasia Macrocytosis PT 21.8 H INR 1.9 H Sodium Potassium Chloride Carbon Dioxide BUN Creatinine Estimated GFR BUN/Creatinine Ratio Glucose Calcium Magnesium 1.6 1.3 L Total Bilirubin AST ALT Alkaline Phosphatase Total Protein Albumin Globulin Albumin/Globulin Ratio 07/16/18 07/16/18 07/16/18 04:45 04:45 04:45 WBC 5.6 RBC 2.37 L Hgb 9.1 L Hct 25.6 L MCV 108.0 H MCH 38.2 H MCHC 35.4 RDW 14.0 Plt Count 43 L Neut % (Auto) 66.7 Lymph % (Auto) 19.1 L [place] % (Auto) 11.4 Eos % (Auto) 1.8 L Baso % (Auto) 1.0 Neut # (Auto) 3800 Lymph # (Auto) 1100 [place] # (Auto) 600 Eos # (Auto) 100 Baso # (Auto) 100 Platelet Estimate Decreased on smear RBC Morphology See below Polychromasia 1+ H Macrocytosis 1+ H PT 23.0 H INR 2.0 H Sodium 139 Potassium 3.2 L Chloride 112 H Carbon Dioxide 20 L BUN 5 L Creatinine 0.30 L Estimated GFR > 60.0 BUN/Creatinine Ratio 16.7 Glucose 125 H Calcium 7.9 L Magnesium Total Bilirubin 9.9 H AST 127 H ALT 50 Alkaline Phosphatase 83 Total Protein 6.9 Albumin 2.9 L Globulin 4.0 Albumin/Globulin Ratio 0.7 L Assessment & Plan Assessment & Plan narrative: 1. Alcoholic withdrawal/metabolic encephalopathy-continue with IV benzodiazepines as well as IV Haldol. If patient will take oral benzodiazepines are longer-acting this might be more beneficial. Will try her on some oral chlordiazepoxide and see if that will be helpful. I would be extremely reluctant to intubate her and sedate her merely for her agitation. That would entail a significant amount of risk regarding ventilator associated pneumonia etc that I do not think is appropriate. She also has risk associated with in tubation with a low platelet count status etc etc. hopefully we given enough time away from alcohol that withdrawal component this will begin to improve. I am which is related to her alcoholic hepatitis is unclear 2. Alcoholic hepatitis-patient's DF score is 57. This certainly places her in the category of severe alcoholic hepatitis which puts her at very high risk. There is evidence of some benefit with steroids and so I will start her with IV methylprednisolone. Her bilirubin has stopped climbing, fortunately. Platelet count seems to have stabilized as well. Fortunately renal function remains normal at this point anyway. INR does continue to decline. Continue to monitor and hope for continued improvement. 3. Electrolytes-patient with low potassium and magnesium. Will try to replace these orally if that fails so have to do it intravenously. Plan to recheck tomorrow. Note: Greater than 30 minutes was spent evaluating the patient on the floor, including examining the patient, discussing clinical course with clinical and nursing staff, reviewing clinical course in the computer, preparing documentation and writing orders for continued management of care, discussing status with family as appropriate, reviewing plans for the next 24 hours with both patient/family and nursing staff as appropriate.
[2018-07-16] MEDS: MAGNESIUM SULFATE 2 GM, FOLIC ACID 1 MG, THIAMINE 100 MG, MULTIVITAMIN 10 ML in SODIUM ... IV (09:09)
[2018-07-16] MEDS: POTASSIUM CHLORIDE 20 MEQ/15 ML UDC 40 MEQ PO ×2 (09:12→18:40)
[2018-07-16] MEDS: chlordiazePOXIDE 25 MG CAPSULE 50 MG PO ×2 (09:28→18:40)
--- NOTE | 2018-07-16 10:40 | PC.NURSE ---
Addendum entered by Shankar Lyn R.N. 07/16/18 12:47: 1200- Called to Dr. Oakley. Reported pt unable to take all of PO K+, reported increased CIWA scores 20s with decreased ativan dosing. Reported librium given. Reported pt c/o headache and generalized itching. Orders received for IV benadryl and PO oxycodone. Administered benadryl and pt was noted to be asleep post administration. Allowing rest period and will reassess effectiveness when awake. RR 18 even/unlabored, SPO2 94% on RA, HR 80s NSR. Seizure precautions, bed alarm, call light in reach, curtain open for direct visualization. Original Note: Rec'd pt laying in bed sleeping. Awakens to verbal stimuli and states her name with thick, mumbled speech. Pt having difficulty with articulation, but improvement noted after oral care removing some old bloody exudate. Orientation and explanation re plan of care provided. Pt quite drowsy and nodding off during assessment. Able to follow commands, initiate hand field service consultant, and move both legs off bed with equal weakness. Pt able to take a few sips of apple juice with liquid K+ and swallow librium whole with apple sauce carrier. After, pt declined to take AM meds. Pt agreeable to hygiene care. Noted brief to be wet with urine appearance. Provided cody care, catheter care, and deflated/reinflated balloon with some repositioning and noted approx 150 ML of urine flowing to drainage bag (will monitor). After hygiene care/linen change, pt became resistant to care stating, Don't let them come in here please! Became agitated, tremulous, and attempting to remove lines, catheter despite attempts at redirection, reorientation, distraction. Assessed CIWA 21 and administered PRN rx. Post administration, pt remains resistive to care (bp monitoring) and reports people coming in through window. RR 30s SPO2 98% RA, HR 90s SR. Administered PRN haldol, lights dimmed, blinds closed. Call light in easy reach, bed rails x3, seizure pads in place, bed alarm in use. Will monitor closely.
[2018-07-16] MEDS: diphenhydrAMINE 50 MG/ML VIAL IV (12:18)
[2018-07-16] MEDS: LORATADINE 10 MG TABLET PO (18:41)
[2018-07-16] MEDS: OXYCODONE IR 5 MG TABLET 2.5 MG PO (19:41)
--- NOTE | 2018-07-16 21:52 | PC.NURSE ---
josef note pt sleeping, snoring until 19:00. Pt woke, was able to drink water, take pills, eat pudding. Pt c/o back pain; medicated with 2.5 mg oxycodone. Mouth is dry and tongue is swollen. Pt tremulous, but much less restless than yesterday.
[2018-07-17] VITALS (11 sets, daily range): BP systolic 100–129; BP diastolic 49–70; PULSE 70–94; RESP 12–27; TEMP 36.6–37.2; O2SAT 92–98; BMI 25.4
[2018-07-17] MEDS: diphenhydrAMINE 50 MG/ML VIAL IV ×2 (02:10→23:37)
[2018-07-17] MEDS: OXYCODONE IR 5 MG TABLET 2.5 MG PO ×2 (03:17→23:36)
[2018-07-17 05:21] LABS: Alanine Aminotransferase 53 IU/L (9-52); Albumin 2.9 g/dL (3.5-5.0); Albumin Globulin Ratio 0.7 (1.0-2.8); Alkaline Phosphatase 76 U/L (38-126); Aspartate Aminotransferase 112 IU/L (14-36); BUN Creatinine Ratio 23.3 (6-22); Bilirubin Total 8.2 mg/dL (0.2-1.3); Blood Urea Nitrogen 7 mg/dL (7-17); Carbon Dioxide 20 mmol/L (22-32); Chloride 114 mmol/L (98-107); Estimated Glomerular Filt Rate > 60.0 mL/min (>60); Glucose 107 mg/dL (70-100); HEMOLYSIS 24 (0-50); Sodium 141 mmol/L (137-145); Total Protein 6.9 g/dL (6.3-8.2)
[2018-07-17 05:25] LABS: Add Manual Diff / Slide Review NO; Basophils Absolute Auto 0 /uL (0-100); Basophils Percent Auto 0.3 % (0-2); Eosinophils Absolute Auto 100 /uL (0-450); Eosinophils Percent Auto 0.6 % (2-4); Hematocrit 28.5 % (36-46); Hemoglobin 9.8 g/dL (12.0-16.0); Lymphocytes Absolute Auto 1400 /uL (1100-4500); Lymphocytes Percent Auto 16.9 % (25-40); Mean Corpuscular HGB Conc 34.5 % (30-36); Mean Corpuscular Hemoglobin 37.7 PG (26-34); Mean Corpuscular Volume 109.3 fL (80-100); Monocytes Absolute Auto 1100 /uL (0-900); Monocytes Percent Auto 13.3 % (3-14); Neutrophils Absolute Auto 5800 /uL (1500-7000); Neutrophils Percent Auto 68.9 % (50-75); Platelet Count 61 X10^3/uL (150-400); Red Blood Cell Count 2.61 X10^6/uL (4.0-5.2); Red Cell Distribution Width 14.1 % (11.6-14.8); White Blood Cell Count 8.5 X10^3/uL (4.5-11.0)
--- NOTE | 2018-07-17 06:22 | PC.NURSE ---
Patient drowsy and sleeping at beginning of shift, woke at 0130, PO Librium given at that time with pudding and sips water, speech is still slurred and mumbled. Patient started calm and cooperative, remains confused with CIWA 11, then she started to get restless and attempting to get OOB. IV Benadryl given per prn, PO 2.5mg PO oxycodone given for c/o mouth pain and tenderness at LFA IV site, site is patent without erythema or edema, SL'd. SR, VSS, SpO2 >94% on RA, tolerated am lab draw, back to sleep by 0500.
[2018-07-17] MEDS: chlordiazePOXIDE 25 MG CAPSULE 50 MG PO ×4 (07:38→23:36)
[2018-07-17] MEDS: DEXTROSE 5%-NS W/KCL 20MEQ 1,000 ML 100 MEQ IV ×2 (08:54→19:14)
--- NOTE | 2018-07-17 08:56 | P.PN_ITS ---
Subjective Date Patient Seen: 07/17/18 Time Patient Seen: 08:33 Interval history: The patient seems to be improved. Requiring far less in the way of Ativan overnight. Is more awake alert able answer basic questions. Speech is still fairly slurred whether due to issues with her mouth after her seizure or other is not yet clear. She recognizes that she is very weak and is concerned about going back to work and having an excuse for her employer about her hospitalization etc. Exam Vital Signs (past 8 hours): - 07/17/18 01:41 07/17/18 04:52 07/17/18 07:41 Temperature 97.9 F 98.1 F 99 F Pulse Rate 74 70 87 Respiratory Rate 20 12 27 H Blood Pressure 100/61 112/61 104/49 L Pulse Oximetry 95 97 98 07/17/18 07:45 Temperature Pulse Rate Respiratory Rate Blood Pressure Pulse Oximetry 97 Oxygen Delivery Method Room Air Oxygen Flow Rate 0 Objective Labs Result Diagrams: 07/17/18 04:45 07/17/18 04:45 Labs: Laboratory Results - last 24 hr 07/17/18 07/17/18 04:45 04:45 WBC 8.5 D RBC 2.61 L Hgb 9.8 L Hct 28.5 L MCV 109.3 H MCH 37.7 H MCHC 34.5 RDW 14.1 Plt Count 61 L Neut % (Auto) 68.9 Lymph % (Auto) 16.9 L [place] % (Auto) 13.3 Eos % (Auto) 0.6 L Baso % (Auto) 0.3 Neut # (Auto) 5800 Lymph # (Auto) 1400 [place] # (Auto) 1100 H Eos # (Auto) 100 Baso # (Auto) 0 Sodium 141 Potassium 4.0 Chloride 114 H Carbon Dioxide 20 L BUN 7 Creatinine 0.30 L Estimated GFR > 60.0 BUN/Creatinine Ratio 23.3 H Glucose 107 H Calcium 8.0 L Total Bilirubin 8.2 H AST 112 H ALT 53 H Alkaline Phosphatase 76 Total Protein 6.9 Albumin 2.9 L Globulin 4.0 Albumin/Globulin Ratio 0.7 L Assessment & Plan Assessment & Plan narrative: 1. Alcoholic withdrawal and associated metabolic encephalopathy-patient appears to be improving. I think she has done better with the oral long-acting benzodiazepines. Continue that for now and if still is able to stay off the or least minimize the per enteral benzodiazepines than perhaps reduce that dose josé antonio orrow. She is still fairly sedated likely because of all the medications required to keep her agitation and hallucinations to minimum. 2. Alcoholic hepatitis-patient's bilirubin continues to improve slowly but surely. INR remains elevated. Continue with the IV methylprednisone as discussed yesterday. Platelet count has improved and her LFTs statically of improved as well. Renal function remains normal 3. Electrolytes-potassium much improved after some additional IV potassium and a little bit of oral potassium yesterday. Plan to recheck tomorrow. Overall patient is improved and hopefully we can get her up to a chair at least today and perhaps begin some physical therapy tomorrow. Note: Greater than 30 minutes was spent evaluating the patient on the floor, including examining the patient, discussing clinical course with clinical and nursing staff, reviewing clinical course in the computer, preparing documentation and writing orders for continued management of care, discussing status with family as appropriate, reviewing plans for the next 24 hours with both patient/family and nursing staff as appropriate.
[2018-07-17] MEDS: THIAMINE 100 MG TABLET PO (10:04)
[2018-07-17] MEDS: FOLIC ACID 1 MG TABLET PO (10:04)
[2018-07-17] MEDS: MULTIVITAMIN 1 TABLET 1 TAB PO (10:04)
[2018-07-17] MEDS: MAGNESIUM CHLORIDE 64 MG TABLET 128 MG PO (10:04)
[2018-07-17] MEDS: LORazepam 2 MG/ML SYRINGE IV ×2 (11:10→19:13)
[2018-07-17] MEDS: HALOPERIDOL 5 MG/ML VIAL IV (11:20)
[2018-07-17] MEDS: Fluticasone Furoate-Vilanterol [Breo Ellipta] 1 EACH INHALATION (11:21)
[2018-07-17 11:27] LABS: Magnesium 1.9 mg/dL (1.6-2.3)
--- NOTE | 2018-07-17 11:56 | CM.DANOTE ---
DCP/Assessment: Reviewed chart. Patient is a 42yr old female admitted to [facility] for active seizure/alcohol withdrawal. PCP listed is Dr. Oakley. Primary payor is 1)[facility] 2)Medicaid. UNDERCOLLAR BASTER reviewed chart. Patient currently in room# 103 LOS day#4. Patient has been unable to access due to active alcohol withdrawal. UNDERCOLLAR BASTER attempted this AM. Patient up sitting on side of bed with respiratory. Patient not alert to place/time/date. During visit patient attempted to stand up. ICU/RN came in to prevent fall. Patient saying to staff I need to hide my wine patient appears to be actively hallucinating. Patient continued to convey that she needed to hide the wine. Spoke with RN/Shankar she reports that patient is not but has significant other/Yevgeniy who has been by. Shankar does not believe that patient has any biological family in the country? At this time patient in active alcohol withdrawal. UNDERCOLLAR BASTER to continue to follow closely. Will need to access d/c planning needs when patient medically appropriate. Placed call to [facility] to check to see if patient enrolled. [facility] reports no current enrollment but has been enrolled in the past under last name Crissy (approximately 13yrs ago). Patient did have inpatient mental health hospitalization at [facility] in 2005. Exact reason not known by [facility]. P: UNDERCOLLAR BASTER following closely for planning. BRETT Adame Discharge Planning/Care Management CM Discharge Assessment Start: 07/17/18 11:50 Freq: Status: Active Protocol: Document 07/17/18 11:52 KJS (Rec: 07/17/18 11:55 KJS [id number]) Discharge Planning Assessment Assigned Senior Nuclear Medicine Technologist BRETT Adame Contact Information Yevgeniy Shrestha (signficant other) [phone] or Advance Directives? No Advance Directives on File No History Provided By Medical Record Prior Living Arrangements House Household Members significant other Comment Unsure if patient drives at this time. Independent with ADL's Yes Is patient alert and oriented? No: Currently in active detox CIWA=20 on 07-17-18 Comment Patient requiring assistance with all ADL's at this time. Discharge Plan Drug Rehabilitation Review Status In Process Next Review Type Continued Stay Review
--- NOTE | 2018-07-17 12:27 | PC.NURSE ---
Pt remains confused but with low CIWA on initial assessment. Much more awake and alert. Following commands and intermittently making needs known. Pt denies she is in the hospital. States she is at home but asks pertinent questions regarding her hospitalization and plan of care without cues. Have you seen my labs? What were my platelets? After telling her that her platelets were 61 on morning labs, she states That's an improvement from 53. Swallowed pills whole in pudding carrier and able to drink some apple juice with a straw. She is asking for a work excuse and is tearful regarding diagnosis and hospitalization. Emotional care provided and pt is easily redirectable. Dangled at the bedside for approx 5 minutes and then laid down for a nap approx 1045. Pt awoke abruptly at 1100 in a panic, sat up to edge of bed and was attempting to get up unassisted. Unable to reorient or redirect. Pt states she needs to hide her wine. My will kill me if he finds out. Administered scheduled librium and PRN ativan per CIWA protocol. Pt cont to attempt getting OOB and is unable to be redirected to lay down. Pointing toward the nurses station states Let me just do this one thing. Administered PRN haldol. After about 10 minutes, able to assist pt back to bed with assist x2. Repositioned for comfort and pt able to sleep. Seizure pads, bed alarm, bed rails x3 and direct visualization.
--- NOTE | 2018-07-17 19:01 | PC.NURSE ---
1845 - Pt restless and mildly agtitated. Attempting to get out of bed. Expressing agitation with S.O. not coming to visit. While talking with pt, she states that there are two people in her bed. one has africa martinez shoes on her feet are right their on my bed. Educated to withdrawal s/s, reassurance provided. Pt states that she needs to get dressed and go home. Discussed safety, strength and treatment plan. Reinforcement needed. CIWA score 14. Librium given as scheduled. Monitor. Bed alarm on. Seizure pads in place.
[2018-07-17] MEDS: SODIUM CHLORIDE 0.9% FLUSH 10 ML IV (23:37)
[2018-07-18] VITALS (8 sets, daily range): BP systolic 113–127; BP diastolic 67–80; PULSE 83–107; RESP 16–26; TEMP 36.4–37.4; O2SAT 92–97
[2018-07-18] MEDS: HALOPERIDOL 5 MG/ML VIAL IV ×6 (00:14→16:38)
[2018-07-18] MEDS: LORazepam 2 MG/ML SYRINGE IV ×9 (00:53→13:02)
--- NOTE | 2018-07-18 01:21 | PC.NURSE ---
Addendum entered by Nita Linares R.N. 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 Addendum entered by Nita Linares R.N. 07/18/18 02:38: Patient continues to be restless and attempt to get out of bed, says she needs to call my work unable to reorient her to place and time of day. CIWA is 15, 2mg IV Ativan given. Original Note: At 2345, patient alert, confused with slurred speech, able to take PO Librium as scheduled and 2.5mg oxycodone for pain to my sides Oriented to person only, thinks she is at home and trying to get OOB to go downstairs Between midnight and 0100, she escalated with CIWA at 16. 5mg IV Haldol given followed by 2mg IV Ativan. Given sips water when she states she is thirsty, brief placed to keep her from pulling at [place].
[2018-07-18] MEDS: chlordiazePOXIDE 25 MG CAPSULE 50 MG PO ×3 (05:00→17:14)
[2018-07-18] MEDS: DEXTROSE 5%-NS W/KCL 20MEQ 1,000 ML 100 MEQ IV ×2 (05:00→14:51)
[2018-07-18 05:18] LABS: Prothrombin Time 23.2 SECONDS (10.1-12.7)
[2018-07-18 05:23] LABS: Alanine Aminotransferase 63 IU/L (9-52); Albumin 3.3 g/dL (3.5-5.0); Albumin Globulin Ratio 0.8 (1.0-2.8); Alkaline Phosphatase 116 U/L (38-126); Aspartate Aminotransferase 120 IU/L (14-36); BUN Creatinine Ratio 12.5 (6-22); Bilirubin Conjugated 1.2 md/dL (0.0-0.3); Bilirubin Total 7.3 mg/dL (0.2-1.3); Bilirubin Unconjugated 2.4 mg/dL (0.0-1.1); Blood Urea Nitrogen 5 mg/dL (7-17); Calcium 8.8 mg/dL (8.4-10.2); Carbon Dioxide 22 mmol/L (22-32); Chloride 111 mmol/L (98-107); Estimated Glomerular Filt Rate > 60.0 mL/min (>60); Globulin 4.2 g/dL (1.7-4.1); Glucose 105 mg/dL (70-100); HEMOLYSIS < 15 (0-50); Magnesium 1.4 mg/dL (1.6-2.3); Potassium 3.5 mmol/L (3.4-5.1); Sodium 143 mmol/L (137-145); Total Protein 7.5 g/dL (6.3-8.2)
[2018-07-18 05:27] LABS: Basophils Absolute Auto 0 /uL (0-100); Basophils Percent Auto 0.6 % (0-2); Eosinophils Absolute Auto 100 /uL (0-450); Eosinophils Percent Auto 0.9 % (2-4); Hematocrit 31.1 % (36-46); Hemoglobin 10.8 g/dL (12.0-16.0); Lymphocytes Absolute Auto 2000 /uL (1100-4500); Lymphocytes Percent Auto 24.7 % (25-40); Mean Corpuscular HGB Conc 34.8 % (30-36); Mean Corpuscular Hemoglobin 37.7 PG (26-34); Mean Corpuscular Volume 108.3 fL (80-100); Monocytes Absolute Auto 900 /uL (0-900); Monocytes Percent Auto 11.2 % (3-14); Neutrophils Absolute Auto 5200 /uL (1500-7000); Neutrophils Percent Auto 62.6 % (50-75); Platelet Count 79 X10^3/uL (150-400); Red Blood Cell Count 2.87 X10^6/uL (4.0-5.2); Red Cell Distribution Width 14.3 % (11.6-14.8); White Blood Cell Count 8.2 X10^3/uL (4.5-11.0)
[2018-07-18 05:32] LABS: Add Manual Diff / Slide Review SLIDE REVIEW
[2018-07-18 07:10] LABS: Anisocytosis 1+; Macrocytosis 2+
--- NOTE | 2018-07-18 08:00 | PM.PN.1 ---
Subjective Date Patient Seen: 07/18/18 Time Patient Seen: 08:00 Interval history: Patient was seemingly improving from mental status standpoint yesterday. She seemed less agitated and was more intelligible with her speech and more awake and alert and and not required any benzodiazepines for several hours. She then woke from sleep and became much more agitated worried about work worried about her platelet count thinking she needed to go home etc. She has required consistent doses of both Haldol and lorazepam since that time. She does seem to be more alert and her speech is certainly much more intelligible. This morning she is asking about her platelet count she is thinking she needs to go home she is worried about work as well. She seems to understand when I discussed with her that she is in the hospital and she has issues with a very sick liver as well as her alcohol withdrawal that is ongoing. She does admit to drinking wine. I discussed with her that I have not seen anyone that is sick from alcohol withdrawal in somewhere between 5 and 10 years at least. I know that she heard that I am not quite sure she is able to fully incorporate that into her thinking. Exam Vital Signs (past 8 hours): - 07/18/18 04:00 07/18/18 07:26 Temperature 97.5 F L 99.3 F Pulse Rate 107 H 101 H Respiratory Rate 18 16 Blood Pressure 127/68 127/80 Pulse Oximetry 97 Oxygen Delivery Method Room Air Oxygen Flow Rate 0 Narrative Exam Narrative: Unchanged from previous Objective Labs Result Diagrams: 07/18/18 04:55 07/18/18 04:55 Labs: Laboratory Results - last 24 hr 07/17/18 07/18/18 07/18/18 04:45 04:55 04:55 WBC RBC Hgb Hct MCV MCH MCHC RDW Plt Count Neut % (Auto) Lymph % (Auto) Cochran % (Auto) Eos % (Auto) Baso % (Auto) Neut # (Auto) Lymph # (Auto) Cochran # (Auto) Eos # (Auto) Baso # (Auto) RBC Morphology Anisocytosis Macrocytosis PT 23.2 H INR 2.0 H Sodium 143 Potassium 3.5 Chloride 111 H Carbon Dioxide 22 BUN 5 L Creatinine 0.40 L Estimated GFR > 60.0 BUN/Creatinine Ratio 12.5 Glucose 105 H Calcium 8.8 Magnesium 1.9 1.4 L Total Bilirubin 7.3 H Conjugated Bilirubin 1.2 H Unconjugated Bilirubin 2.4 H AST 120 H ALT 63 H Alkaline Phosphatase 116 Total Protein 7.5 Albumin 3.3 L Globulin 4.2 H Albumin/Globulin Ratio 0.8 L 07/18/18 04:55 WBC 8.2 RBC 2.87 L Hgb 10.8 L Hct 31.1 L MCV 108.3 H MCH 37.7 H MCHC 34.8 RDW 14.3 Plt Count 79 L Neut % (Auto) 62.6 Lymph % (Auto) 24.7 L Cochran % (Auto) 11.2 Eos % (Auto) 0.9 L Baso % (Auto) 0.6 Neut # (Auto) 5200 Lymph # (Auto) 2000 Cochran # (Auto) 900 Eos # (Auto) 100 Baso # (Auto) 0 RBC Morphology See below Anisocytosis 1+ H Macrocytosis 2+ H PT INR Sodium Potassium Chloride Carbon Dioxide BUN Creatinine Estimated GFR BUN/Creatinine Ratio Glucose Calcium Magnesium Total Bilirubin Conjugated Bilirubin Unconjugated Bilirubin AST ALT Alkaline Phosphatase Total Protein Albumin Globulin Albumin/Globulin Ratio Assessment & Plan Assessment & Plan narrative: 1. Alcoholic withdrawal and associated metabolic encephalopathy-patient certainly continues to be up and down. Overall I do think she has improved. Going to try using perhaps some diazepam especially when she is requiring larger doses of lorazepam in an effort to try and improve her mental status. I am not changing the oral dose of chlordiazepoxide at this point. Continue with haloperidol as needed as well but will try giving her a dose of Risperdal at night and see if that will provide some benefit. 2. Alcoholic hepatitis-patient's bilirubin continues to improve slowly but surely. INR remains elevated. Continue with the IV methylprednisone as discussed previously. Platelet count has improved and her LFTs are improved as well. Renal function remains normal. Plan not to repeat platelet count unless there specific reason. Continue to follow her coagulopathy and perhaps not quite as carefully follow her LFTs/bilirubin 3. Electrolytes-potassium stable for now. Repeat tomorrow. Patient continues to be critically ill from her alcohol withdrawal causing multiple issues as above including her metabolic encephalopathy this seizures that she was having, the hepatic dysfunction etc. Much of this is improving however her mental status continues to be quite out there. Note: Greater than 30 minutes was spent evaluating the patient on the floor, including examining the patient, discussing clinical course with clinical and nursing staff, reviewing clinical course in the computer, preparing documentation and writing orders for continued management of care, discussing status with family as appropriate, reviewing plans for the next 24 hours with both patient/family and nursing staff as appropriate.
[2018-07-18] MEDS: MULTIVITAMIN 1 TABLET 1 TAB PO (08:56)
[2018-07-18] MEDS: LORATADINE 10 MG TABLET PO (08:56)
[2018-07-18] MEDS: MAGNESIUM CHLORIDE 64 MG TABLET 128 MG PO (08:56)
[2018-07-18] MEDS: FOLIC ACID 1 MG TABLET PO (08:56)
[2018-07-18] MEDS: diphenhydrAMINE 50 MG/ML VIAL IV ×2 (09:11→16:14)
[2018-07-18] MEDS: diazePAM 10 MG/2 ML SYRINGE 5 MG IV ×2 (10:29→13:10)
[2018-07-18] MEDS: Fluticasone Furoate-Vilanterol [Breo Ellipta] 1 EACH INHALATION (11:51)
[2018-07-19] VITALS (11 sets, daily range): BP systolic 97–125; BP diastolic 50–81; PULSE 67–115; RESP 11–22; TEMP 36.3–37.2; O2SAT 92–96
[2018-07-19] MEDS: risperiDONE 1 MG TABLET 3 MG PO ×2 (00:52→19:17)
[2018-07-19] MEDS: chlordiazePOXIDE 25 MG CAPSULE 50 MG PO ×5 (00:52→23:53)
--- NOTE | 2018-07-19 01:18 | PC.NURSE ---
Patient sleeping at beginning of shift until 0100, remains drowsy and keeps eyes closed but able to follow directions to sip up and take schedules PO Librium and PO Risperidone with pudding and sips water. CIWA 9, still has tremors and disorientation. VSS.
[2018-07-19] MEDS: DEXTROSE 5%-NS W/KCL 20MEQ 1,000 ML 100 MEQ IV ×3 (01:51→23:55)
[2018-07-19 05:34] LABS: Alanine Aminotransferase 62 IU/L (9-52); Albumin 2.9 g/dL (3.5-5.0); Albumin Globulin Ratio 0.8 (1.0-2.8); Alkaline Phosphatase 87 U/L (38-126); Aspartate Aminotransferase 92 IU/L (14-36); Bilirubin Total 5.7 mg/dL (0.2-1.3); Blood Urea Nitrogen 8 mg/dL (7-17); Calcium 8.3 mg/dL (8.4-10.2); Carbon Dioxide 25 mmol/L (22-32); Chloride 109 mmol/L (98-107); Estimated Glomerular Filt Rate > 60.0 mL/min (>60); Globulin 3.7 g/dL (1.7-4.1); Glucose 106 mg/dL (70-100); HEMOLYSIS < 15 (0-50); Potassium 3.3 mmol/L (3.4-5.1); Sodium 142 mmol/L (137-145); Total Protein 6.6 g/dL (6.3-8.2)
[2018-07-19 05:54] LABS: Prothrombin Time 23.4 SECONDS (10.1-12.7)
[2018-07-19] MEDS: MULTIVITAMIN 1 TABLET 1 TAB PO (07:33)
[2018-07-19] MEDS: LORATADINE 10 MG TABLET PO (07:33)
[2018-07-19] MEDS: FOLIC ACID 1 MG TABLET PO (07:33)
[2018-07-19] MEDS: MAGNESIUM CHLORIDE 64 MG TABLET 128 MG PO (07:34)
[2018-07-19] MEDS: diazePAM 10 MG/2 ML SYRINGE 5 MG IV ×4 (08:01→19:49)
--- NOTE | 2018-07-19 08:12 | PM.PN.1 ---
Subjective Date Patient Seen: 07/19/18 Time Patient Seen: 08:12 Interval history: Patient is more awake and alert again this morning. Speech is even more intelligible. She seems to have slow return of brain function. Still is not convinced she is in the hospital still feels this overwhelming need to go home and leave the hospital or go home anyway knowing that she is not at home At the moment is somewhat redirectable. Has required some continued doses of benzodiazepines. Nursing staff is using more diazepam which seems to be helpful and perhaps more helpful than the lorazepam Exam Vital Signs (past 8 hours): - 07/19/18 00:42 07/19/18 01:04 07/19/18 05:25 Temperature 97.3 F L 97.4 F L Pulse Rate 74 67 Respiratory Rate 19 11 L Blood Pressure 114/81 Pulse Oximetry 94 94 92 07/19/18 07:39 Temperature 98.9 F Pulse Rate 98 H Respiratory Rate 22 Blood Pressure 101/64 Pulse Oximetry 93 Oxygen Delivery Method Room Air Oxygen Flow Rate 0 Narrative Exam Narrative: Unchanged from previous Objective Labs Result Diagrams: 07/18/18 04:55 07/19/18 05:00 Labs: Laboratory Results - last 24 hr 07/19/18 07/19/18 05:00 05:00 PT 23.4 H INR 2.0 H Sodium 142 Potassium 3.3 L Chloride 109 H Carbon Dioxide 25 BUN 8 Creatinine 0.40 L Estimated GFR > 60.0 BUN/Creatinine Ratio 20.0 Glucose 106 H Calcium 8.3 L Total Bilirubin 5.7 H AST 92 H ALT 62 H Alkaline Phosphatase 87 Total Protein 6.6 Albumin 2.9 L Globulin 3.7 Albumin/Globulin Ratio 0.8 L Assessment & Plan Assessment & Plan narrative: 1. Alcoholic hepatitis-numbers continue to improve every time they are checked. Will plan to recheck again on the . Bilirubin continues to drop LFTs continue to improve. Pro time remains elevated and unchanged but not increasing. 2. Metabolic encephalopathy-patient continues to show slow but steady improvement in my opinion. She continues to be confused and disoriented with perhaps even some hallucinations ongoing but overall the burden seems less than it was. Continue trying use more diazepam verses lorazepam as well as Haldol. She will continue on the scheduled doses of chlordiazepoxide without changes well as a nighttime dose of Risperdal. I am going to initiate some physical therapy maybe even getting up to a chair if that can be done safely might help improve her overall cognitive function as well. Continuing try and reinforce day versus night by opening shades windows etc is entirely appropriate and helpful as well. 3. Seizures-no evidence of active seizures at this point unexpectedly given the very large doses of benzodiazepine she is receiving 4. Electrolytes-continue to replace potassium and magnesium. Plan to recheck again as above Patient continues I think to slowly emphasizing very slowly improved. Still requires inpatient hospitalization and basically for safety requires ICU care for one-to-one nursing etc. As she gets closer to being ready for discharge would need to explore options for helping her with treatment of her alcoholism as well. I will ask the care management team to help with this at that time Note: Greater than 30 minutes was spent evaluating the patient on the floor, including examining the patient, discussing clinical course with clinical and nursing staff, reviewing clinical course in the computer, preparing documentation and writing orders for continued management of care, discussing status with family as appropriate, reviewing plans for the next 24 hours with both patient/family and nursing staff as appropriate.
[2018-07-19] MEDS: diphenhydrAMINE 50 MG/ML VIAL IV (08:18)
[2018-07-19] MEDS: HALOPERIDOL 5 MG/ML VIAL IV (08:18)
[2018-07-19] MEDS: Fluticasone Furoate-Vilanterol [Breo Ellipta] 1 EACH INHALATION (09:06)
--- NOTE | 2018-07-19 10:01 | PC.NURSE ---
Pt received awake and alert, beginning to show signs of ETOH withdrawal with tremors, disorientation, anxiety and impulsivity. Pt initially given scheduled librium, re-oriented verbally. Pt oriented to self and month, but not circumstance, year or place. Pt progressively became more restless, attempting to exit bed and stating I'm going home, unable to verbally re-orient patient. Pt was given 5 mg haldol at this time. Pt then was sleeping but arousable. Pt able to speak coherently with her when he was at bedside, calm and cooperative with PT, able to stand at bedside several times. Please see PT note for details. Pt was weak and deconditioned, HR up to 120s (ST) at that time. Pt was oriented x3 at this time. Pt then became more agitated, given scheduled librium, pt continued to escalate, starting to want to get OOB, tremoring, mildly agitated. Pt given 5 mg IV valium. Pt is now calm, sleeping intermittently, moving calmly around in bed, able to answer questions clearly. Pt has intermittently been able to drink water and clear ensure with assistance. Given ~ 1/2 vanilla pudding in am and at lunch. Pt's appetite remains poor, but denies nausea this afternoon.
--- NOTE | 2018-07-19 11:43 | PT.IIE ---
Current Diagnoses Alcohol dependence with withdrawal, unspecified (07/13/18) Surgical History (Last Reviewed 07/14/18 @ 10:21 by David Tran MD) Status post endoscopy (Resolved 09/2009) Medical History (Last Reviewed 07/14/18 @ 10:21 by David Tran MD) Chronic migraine (Chronic) Major depressive disorder, recurrent, moderate (Chronic 12/31/10) Gastro-esophageal reflux (Chronic 12/31/10) Allergic rhinitis (Chronic) Asthma (Chronic) Bipolar disorder (Chronic) Duodenal ulcer (Chronic 09/2009) Physical Therapy Inpatient Evaluation/Re-Eval M1 PT/OT-IP Prior Functional Status Start: 07/19/18 11:19 Freq: NEEDED Status: Active Protocol: Document 07/19/18 10:35 (Rec: 07/19/18 11:42 [email or web address]) Medical Review Prior Functional Status Medical History Reviewed Yes Diet/Fluid Consistency Regular Communication Pt's states no deficits noted. Pt is able to make needs knwon Mobility and Gait Pt was independent for mobility at home and community . 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 Able to drive as well Activities of Daily Living and IADL's independent for ADLs and IADLs Social History Household Members significant other Living Arrangements House Number of Floors (Floors) One Floor Number of Stairs To Enter/Railing? 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 They dont have children and pt works at a [employer] shop in [facility] 5hours a day. Pt has a hx alcohol use and current e-cigarrete user. Pt had multiple withdrawal episodes before as Mukul reports that pt tends to have UE tremors but never had hospitalized. Pt fell at home 07/13 and bite her tongue due to seizure episodes x 2 who was admitted to after. M2 PT-IP Current Condition Start: 07/19/18 11:19 Freq: NEEDED Status: Active Protocol: Document 07/19/18 10:35 HH (Rec: 07/19/18 11:42 [email or web address]) Physical Therapy Current Condition Current Condition Evaluation Date 07/19/18 Treatment Diagnosis seizures, s/p fall, metabolic encephapathy, generalized weakness Onset Date 5/10/19 Weight Bearing Status Weight Bearing Status Weight Bear as Tolerated M3 PT-IP Subjective Start: 07/19/18 11:19 Freq: NEEDED Status: Active Protocol: Document 07/19/18 10:35 (Rec: 07/19/18 11:42 [email or web address]) Subjective Physical Therapy Visit Type Type Initial Evaluation Visit Start Time 10:35 Visit Stop Time 11:15 Total Visit Minutes 40 Notes Per RN, pt has been bed bound since admission. Appeared very weak and shaky with cont hallucinating. Per CAFETERIA DIRECTOR, unable to obtain d/c planning due to pt's actively hallucinating. Number of ANTITANK ASSAULT GUNNER Visits 0 Physical Therapy Visit Comments Patient Comments Pt's Mukul at bedside today answering questions. Pt is awake and able to follow command. She is able to answer with slurred speech but overall remain sensual. Patient Goals To return home with Mukul. Therapy Pain Assessment Pain Present Pain Present Denied Pain M4 PT-IP Mobility and Gait Start: 07/19/18 11:19 Freq: NEEDED Status: Active Protocol: Document 07/19/18 10:35 (Rec: 07/19/18 11:42 [email or web address]) PT-Bed Mobility Assessment Rolling Type of Rolling Roll to Right Level of Assist Moderate Assistance 1 Person Assistance Supine to Sit Supine to Sit Moderate Assistance 1 Person Assistance Sit to Supine Sit to Supine Maximum Assistance 2 Person Assistance Scooting Scooting to Edge of Bed Moderate Assistance Scooting Up and Down in Bed Maximum Assistance PT-Transfer Assessment Sit to and From Stand Sit to and from Stand Minimal Assistance Moderate Assistance Use of Upper Extremities Equipment Transfer Assistive Device Gait Belt Front Wheeled Walker Orthotic/Prosthetic Devices or Brace: No Transfers Transfer Destination Bed Comments Mobility Comments Pt was in bed and appear shaky on B UEs upon assessment. Pt was able to follow command and initiate movements to sit EOB . She required overall mod to max A for bed mobility. She sat with support at the R side of EOB for first 5 mins but without support for 10 mins after. Pt did present occasional excessive sway but she was able to recover. Pt stood up five times at bedside with mod A for first 3 times but min A for last 2 times with FWW. She tends to take approx 5 seconds to stand up. Pt needs constant cues to stand upright and tends to hyperextend her knees due to weakness. She then took very few lateral steps to get close to head of bed. Returned to bed after with 2 PA. Gait Assessment Comments Gait Comments unable to amb. Pt was unable to lift her foot up. Stair Climbing Assessment Comments Stair Climbing Comments did not attempt PT-Balance Assessment Sitting Balance and Reactions Static Sitting Balance Ability Good Dynamic Sitting Balance Ability Fair Standing Balance and Reactions Static Standing Balance Ability Poor Dynamic Standing Balance Ability Poor Device Used FWW M5 PT-IP Objective Assessments Start: 07/19/18 11:19 Freq: NEEDED Status: Active Protocol: Document 07/19/18 10:35 (Rec: 07/19/18 11:42 [email or web address]) Orientation Orientation/Cognition Level of Alertness Lethargic Orientation Name Age Birthday Month Year Situation Language Function Ability Garbled Speech Safety Awareness Decreased Safety Awareness Memory Description Short Term Impaired Nursing Home Impaired Comments Pt is awake and able to follow command. She is able to answer with slurred speech but overall remain sensual. Gross Range of Motion Upper Extremity ROM Assessment Bilaterally Impaired Impairments only able to reach her forehead Lower Extremity ROM Assessment Bilaterally Impaired Strength Upper Extremity Strength Assessment Bilaterally Impaired Lower Extremity Strength Assessment Bilaterally Impaired Comments Strength Comments grossly 3/5 for B UEs and LEs Coordination Assessment Gross Coordination Gross Coordination Impaired Assessment Finger to Nose Test Moderate Impairment Pronation/Supination Test Moderate Impairment Muscle Tone Comments Muscle Tone Comments Pt's skin appears very pale and yellow. M6 PT-IP Treatment Start: 07/19/18 11:19 Freq: NEEDED Status: Active Protocol: Document 07/19/18 10:35 (Rec: 07/19/18 11:42 [email or web address]) Physical Therapy Treatment Exercises Exercises Quad Sets Education Education Provided Safety M7 PT-IP Assessment and Plan Start: 07/19/18 11:19 Freq: NEEDED Status: Active Protocol: Document 07/19/18 10:35 (Rec: 07/19/18 11:42 [email or web address]) PT Summary Assessment and Plan Potential Rehabilitation Potential Fair Status of Condition at Evaluation Evolving Summary Impairments ROM Strength Balance Cognition Bed Mobility Transfers Gait Activity Tolerance Assessment Summary Pt is at high complexity at this point due to very low mobility and cognitive stage. Per RN, pt's AST =120, ALT =63 , Bilirubin = 7.3 from yesterday bloodwork. She is slowly improving but cont required extensive assistance for self care ( VSS HR= 90-120 , RR15-35, O2 Sat >95%) . Pt's at bedside today assisted with questions and mobility. Pt required mod to max A for bed mobility and STS with min to mod A. Pt unable to initiate gait due to signficant weakness. But her overall mobility and cognitive seems to improve quite a bit compared the past few days per RN reports. Pt is currently far from her baseline and will cont need assessment for D/C planning. In my opinion, pt will mostly need short term SNF care to improve her mobility so pt could return to baseline and participate alcohol rehab in the community . Pt's agreeable to this idea and hope to speak with SW. Goals Bed Mobility Goal Contact Guard Assistance Transfer Goal Contact Guard Assistance Front Wheeled Walker Gait Goal Contact Guard Assistance Front Wheel Walker Gait Distance 100 Other Goals to clear 2 steps without railings SBA Days to Meet Goals 10 Frequency of Treatment Frequency Of Treatment Once a Day Treatment Plan Physical Therapy Treatment Plan Bed Mobility Training Transfer Training Gait Training Therapeutic Exercise Balance Retraining Discharge Planning Neuromuscular Re-ed Other Recommendations and Next Treatment bed mob, transfer and gait Focus training as christo Recommendations To Nursing Amount of Assist Needed 2 Person Assist Discharge Recommendations PT Discharge Recommendations SNF Rehab Other Discharge Recommendations pt will mostly need short term SNF care to improve her mobility so pt could return to baseline and participate alcohol rehab in the community . Pt's agreeable to this idea and hope to speak with SW. Equipment Needed for Home Before FWW Discharge
[2018-07-19] MEDS: LORazepam 1 MG TABLET 2 MG PO (14:37)
[2018-07-19] MEDS: POTASSIUM CHLORIDE 20 MEQ/15 ML UDC PO (16:13)
[2018-07-20] VITALS (8 sets, daily range): BP systolic 100–128; BP diastolic 47–93; PULSE 65–107; RESP 12–18; TEMP 36.7–37.6; O2SAT 94–96
--- NOTE | 2018-07-20 00:42 | PC.NURSE ---
Addendum entered by Jeaneth Grady R.N. 07/20/18 03:19: Librium given per schedule, then valium 5mg IV for restlessness and pulling at things and trying to get up, then med with benadryl as the pulling at things may have been itching. Has not slept. Original Note: Confused and seeing people in room that aren't there, restless and staying side to side in bed as will not stay top to bottom. Sleeper given at 1900ish. SHONA 7.
[2018-07-20] MEDS: diazePAM 10 MG/2 ML SYRINGE 5 MG IV ×3 (01:00→16:06)
[2018-07-20] MEDS: diphenhydrAMINE 50 MG/ML VIAL IV (01:18)
[2018-07-20] MEDS: chlordiazePOXIDE 25 MG CAPSULE 50 MG PO ×3 (06:10→17:05)
--- NOTE | 2018-07-20 07:10 | PM.PN.1 ---
Subjective Date Patient Seen: 07/20/18 Time Patient Seen: 06:50 Interval history: Patient clearly is more awake and alert. Still quite disoriented and while not agitated is very restless. Definitely confused. Was seen by Physical therapy yesterday unable to do much of anything. Unless she dramatically improved (which is always possible in a 42-year-old) should require detention placement when ready for discharge Exam Vital Signs (past 8 hours): - 07/19/18 23:59 07/20/18 00:00 07/20/18 05:55 Temperature 98.5 F 99.1 F Pulse Rate 82 107 H Respiratory Rate 16 18 Blood Pressure 115/65 114/61 Pulse Oximetry 95 95 95 Oxygen Delivery Method Room Air Oxygen Flow Rate 0 Objective Labs Result Diagrams: 07/18/18 04:55 07/19/18 05:00 Assessment & Plan Assessment & Plan narrative: 1. Alcoholic hepatitis -plan to recheck chemistries tomorrow 2. Metabolic encephalopathy-slowly but surely improving I continue to believe. Her level of alertness is much improved her level of agitation is slightly diminished her confusion is essentially unchanged. Still having some active hallucinations. Continue with benzodiazepines and Haldol and Risperdal at night. I am going to increase her nighttime dose of Risperdal as she is really not sleeping at night which may be contributing to her ongoing encephalopathy 3. Seizures-almost certainly alcohol withdrawal related and not happening at this like date and with all the benzodiazepines on board. Continue to monitor for same 4. Electrolytes-plan to recheck tomorrow with her other chemistries Note: Greater than 30 minutes was spent evaluating the patient on the floor, including examining the patient, discussing clinical course with clinical and nursing staff, reviewing clinical course in the computer, preparing documentation and writing orders for continued management of care, discussing status with family as appropriate, reviewing plans for the next 24 hours with both patient/family and nursing staff as appropriate.
[2018-07-20] MEDS: Fluticasone Furoate-Vilanterol [Breo Ellipta] 1 EACH INHALATION (07:37)
[2018-07-20] MEDS: POTASSIUM CHLORIDE 20 MEQ/15 ML UDC PO ×2 (08:25→17:02)
[2018-07-20] MEDS: FOLIC ACID 1 MG TABLET PO (08:26)
[2018-07-20] MEDS: MAGNESIUM CHLORIDE 64 MG TABLET 128 MG PO (08:26)
[2018-07-20] MEDS: LORATADINE 10 MG TABLET PO (08:26)
[2018-07-20] MEDS: MULTIVITAMIN 1 TABLET 1 TAB PO (08:26)
[2018-07-20] MEDS: OXYCODONE IR 5 MG TABLET 2.5 MG PO (09:46)
[2018-07-20] MEDS: DEXTROSE 5%-NS W/KCL 20MEQ 1,000 ML 100 MEQ IV ×2 (09:47→21:09)
[2018-07-20] MEDS: LORazepam 2 MG/ML SYRINGE IV ×2 (10:17→14:29)
--- NOTE | 2018-07-20 11:00 | PT.IPTN ---
Current Diagnoses Alcohol dependence with withdrawal, unspecified (07/13/18) Physical Therapy Treatment Note M2 PT-IP Current Condition Start: 07/19/18 11:19 Freq: NEEDED Status: Active Protocol: Document 07/19/18 10:35 HH (Rec: 07/19/18 11:42 HH [email or web address]) Physical Therapy Current Condition Current Condition Evaluation Date 07/19/18 Treatment Diagnosis seizures, s/p fall, metabolic encephapathy, generalized weakness Onset Date 07/13/18 Weight Bearing Status Weight Bearing Status Weight Bear as Tolerated M3 PT-IP Subjective Start: 07/19/18 11:19 Freq: NEEDED Status: Active Protocol: Document 07/20/18 11:00 GGD (Rec: 07/20/18 11:55 GGD [id number]) Subjective Physical Therapy Visit Type Type Treatment Note Visit Start Time 10:35 Visit Stop Time 11:00 Total Visit Minutes 25 Physical Therapy Visit Comments Patient Comments Pt willing work with therapy. Therapy Pain Assessment Pain Present Pain Present Pain Reported M4 PT-IP Mobility and Gait Start: 07/19/18 11:19 Freq: NEEDED Status: Active Protocol: Document 07/20/18 11:00 GGD (Rec: 07/20/18 11:55 GGD [id number]) PT-Bed Mobility Assessment Supine to Sit Supine to Sit Moderate Assistance 1 Person Assistance Sit to Supine Sit to Supine Moderate Assistance 2 Person Assistance Scooting Scooting to Edge of Bed Moderate Assistance Scooting Up and Down in Bed Maximum Assistance PT-Transfer Assessment Sit to and From Stand Sit to and from Stand Minimal Assistance Moderate Assistance 2 Person Assistance Use of Upper Extremities Equipment Transfer Assistive Device Gait Belt Front Wheeled Walker Transfers Transfer Destination Bed Comments Mobility Comments Pt sit to stand at EOB x 5 with mod to min A. She had strong posterior lean in standing and sitting. She need CGA to mod A with sitting balance and mod cues. Pt work on weight shift in sitting with min to mod A. 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 She is able to answer with slurred speech but overall remain sensual. Gross Range of Motion Upper Extremity ROM Assessment Bilaterally Impaired Impairments only able to reach her forehead Lower Extremity ROM Assessment Bilaterally Impaired Strength Upper Extremity Strength Assessment Bilaterally Impaired Lower Extremity Strength Assessment Bilaterally Impaired Comments Strength Comments grossly 3/5 for B UEs and LEs Coordination Assessment Gross Coordination Gross Coordination Impaired Assessment Finger to Nose Test Moderate Impairment Pronation/Supination Test Moderate Impairment Muscle Tone Comments Muscle Tone Comments Pt's skin appears very pale and yellow. M6 PT-IP Treatment Start: 07/19/18 11:19 Freq: NEEDED Status: Active Protocol: Document 07/19/18 10:35 HH (Rec: 07/19/18 11:42 HH [email or web address]) Physical Therapy Treatment Exercises Exercises Quad Sets Education Education Provided Safety M7 PT-IP Assessment and Plan Start: 07/19/18 11:19 Freq: NEEDED Status: Active Protocol: Document 07/20/18 11:00 GGD (Rec: 07/20/18 11:55 GGD [id number]) PT Summary Assessment and Plan Summary Assessment Summary Pt is progressing slowly. She had difficultly following directions. She was unable to balance in standing. She mod to max a for all mobility. She was unable to weight shift in standing to take steps. She will need SNF to improve Functional mobility. Frequency of Treatment Frequency Of Treatment Once a Day Treatment Plan Physical Therapy Treatment Plan Bed Mobility Training Transfer Training Gait Training Therapeutic Exercise Balance Retraining Discharge Planning Neuromuscular Re-ed Other Recommendations and Next Treatment bed mob, transfer and gait Focus training as christo Recommendations To Nursing Amount of Assist Needed 2 Person Assist Discharge Recommendations PT Discharge Recommendations SNF Rehab
--- NOTE | 2018-07-20 14:40 | PC.NURSE ---
Dayshift Note: Pt received sitting up in bed, pt was alert, calm and cooperative, pt was oriented to self and month but not to place or circumstance. Pt thought she was at home, also having hallucinations of people in the room. Pt has been disoriented today. Pt with CIWAA ranging from 9-19 for tremoring, restlessness, anxiety, hallucinations. Pt is impulsive and trying to get OOB often. Pt was helped to stand at edge of bed with PT today. Also stood a separate time with RNs, pt was able to stand up 4 times, strength is increasing. Pt remains in SR at rest. ST with activity, HR up to 110s with standing. Pt given ativan iv x2, scheduled librium and valium x1. Also used extensive redirection and re-orientation. Pt still has poor appetite. Drank water and ensure clear readily. Will continue to monitor, notify MD with changes.
--- NOTE | 2018-07-20 16:01 | CM.SWNOTE ---
CD Assessment: This SAMPLE PROCESSOR following this POC closely over the last few days, reviewed case w/ Dr Oakley yesterday. Pt continues to be in active w/d, LOS 7, CIWA 19 at 0940 this morning and down to 11 at 1538. This SAMPLE PROCESSOR was able to meet w/pt and spouse Yevgeniy this afternoon, explained SW role and reviewed some history. Pt is very groggy but able to speak softly w/this SAMPLE PROCESSOR and spouse, able to follow our conversation and agree or disagree w/her 's report. Pt moves her arms and legs very slowly still and is uncoordinated. 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 Yevgeniy works time study technician. Pt/spouse do not have children. Yevgeniy explains that pt was born and raised in [place], she left there when she was 19 and has traveled around the world. She has always been a heavy drinker, previously drinking primarily Vodka, now beer and wine. Pt detoxed in their home in 2008 and remained sober for years until they went back home to [place] for her father's wedding where she began drinking again. Pt never drank Vodka again but began drinking beer and wine more heavily, now pt drinks approx 8-10 full wine glasses daily. She rarely gets drunk on this amount unless they are going out together to drink. Yevgeniy considers his a functional alcoholic. Yevgeniy does not drink consistently but will have beer when they go out together. Yevgeniy was very scared by pt's recent w/d symptoms and plans to remain sober and support his in remaining sober. Nether pt or Yevgeniy have sought addiction treatment or counseling. Pt had one inpt treatment stay in 2004, after which she began drinking upon coming home. Asked pt what she wants to do once she leaves and pt would like to remain sober. This SAMPLE PROCESSOR asked if pt would consider inpt D/A treatment? Pt says she would consider it. This SAMPLE PROCESSOR suggested another conversation be had together once pt is more A+O and pt/spouse agreed. P: Inpt D/A treatment vs Home w/supportive spouse and outpt treatment program. For Voluntary Inpt D/A treatment using Medicaid: a CD assessment by a designated chemical dependency provider will likely be needed next week before admission to an inpt unit. SAMPLE PROCESSOR team will follow closely to see if this will be feasible during pt's admission, and if pt is agreeable to these steps. BRETT Ramirez
[2018-07-21] VITALS (10 sets, daily range): BP systolic 86–104; BP diastolic 44–65; PULSE 53–102; RESP 12–20; TEMP 36.1–37.3; O2SAT 93–97
--- NOTE | 2018-07-21 04:49 | PC.NURSE ---
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 Asked if she got her shower yesterday and she said Yes, and it was glorious. Speech was clear, she did go on to say she needed to get up for work, as she believed she was at home. 2400 dose of Librium held as she was sound asleep, so temp and BP were deferred until she awoke. Covered back up and is now asleep again. Will awaken for 0600 librium.
[2018-07-21 05:28] LABS: INR 2.1 (0.9-1.3); Prothrombin Time 24.5 SECONDS (10.1-12.7)
[2018-07-21 05:32] LABS: Alanine Aminotransferase 66 IU/L (9-52); Albumin 2.8 g/dL (3.5-5.0); Albumin Globulin Ratio 0.8 (1.0-2.8); Alkaline Phosphatase 87 U/L (38-126); Aspartate Aminotransferase 69 IU/L (14-36); BUN Creatinine Ratio 17.5 (6-22); Bilirubin Total 4.7 mg/dL (0.2-1.3); Blood Urea Nitrogen 7 mg/dL (7-17); Calcium 8.4 mg/dL (8.4-10.2); Carbon Dioxide 24 mmol/L (22-32); Chloride 108 mmol/L (98-107); Estimated Glomerular Filt Rate > 60.0 mL/min (>60); Globulin 3.6 g/dL (1.7-4.1); Glucose 108 mg/dL (70-100); HEMOLYSIS < 15 (0-50); Magnesium 1.4 mg/dL (1.6-2.3); Potassium 3.8 mmol/L (3.4-5.1); Sodium 140 mmol/L (137-145); Total Protein 6.4 g/dL (6.3-8.2)
[2018-07-21] MEDS: chlordiazePOXIDE 25 MG CAPSULE 50 MG PO ×3 (06:07→17:14)
[2018-07-21] MEDS: DEXTROSE 5%-NS W/KCL 20MEQ 1,000 ML 100 MEQ IV ×2 (08:21→19:07)
[2018-07-21] MEDS: FOLIC ACID 1 MG TABLET PO (08:21)
[2018-07-21] MEDS: LORATADINE 10 MG TABLET PO (08:21)
[2018-07-21] MEDS: MAGNESIUM CHLORIDE 64 MG TABLET 128 MG PO ×2 (08:21→20:46)
[2018-07-21] MEDS: MULTIVITAMIN 1 TABLET 1 TAB PO (08:21)
[2018-07-21] MEDS: POTASSIUM CHLORIDE 20 MEQ/15 ML UDC PO ×2 (08:21→17:14)
--- NOTE | 2018-07-21 08:58 | PC.NURSE ---
Addendum entered by Shankar Lyn R.N. 07/21/18 11:36: Pt able to stand up and transfer to w/c with 2PA, gait belt, fww. Max assist x1 with showering and hygiene care. Medicated x1 with PO ativan for CIWA of 8 (tremors, anxiety, headache) prior to showering. Back to room after showering. Gave scheduled librium and PRN MOM. After sitting up, pt feeling much stronger. Able to walk to nurses station with fww, gait belt, and senior physical therapist. Became tired and sat in w/c, brought back to room, transferred to chair. Chair alarm on and curtain open for direct visualization. Original Note: Rec'd pt in bed resting eyes closed with even/unlabored RR 13 and HR 60s, NSR. Allowed rest period and then woke pt for breakfast at 0820. Pt awakens to light verbal stimuli. She states she's in [facility], states date is July 20, 2018, and she tells me her name. She states she came in to the hospital because she slipped on a turtle. Pt easily reorients with simple explanation. She denies pain. She denies headache. Reports having slept well last night. Pt declines getting OOB to chair for breakfast r/t being too cold. Provided warm blankets and sat bolt upright for assistance with breakfast.
[2018-07-21] MEDS: LORazepam 1 MG TABLET 2 MG PO (09:51)
--- NOTE | 2018-07-21 10:10 | P.PN_ITS ---
Subjective Date Patient Seen: 07/21/18 Time Patient Seen: 10:06 Interval history: Patient appears to be much brighter this morning. She is still a bit disoriented but rapidly reorients. She did initially enough say she is in the hospital because she slipped on a turtle, which is actually a diagnosis Wants to go home want to get out of the bed etc. Exam Vital Signs (past 8 hours): - 07/21/18 04:00 07/21/18 04:46 07/21/18 04:53 Temperature 98.0 F Pulse Rate 64 78 Respiratory Rate 12 13 Blood Pressure 98/65 Pulse Oximetry 96 95 07/21/18 08:25 07/21/18 08:30 Temperature 96.9 F L Pulse Rate 75 Respiratory Rate 14 Blood Pressure 104/50 L Pulse Oximetry 95 96 Oxygen Delivery Method Room Air Oxygen Flow Rate 0 Narrative Exam Narrative: Unchanged from previous Objective Labs Result Diagrams: 07/18/18 04:55 07/21/18 04:39 Labs: Laboratory Results - last 24 hr 07/21/18 07/21/18 04:39 04:39 PT 24.5 H INR 2.1 H Sodium 140 Potassium 3.8 Chloride 108 H Carbon Dioxide 24 BUN 7 Creatinine 0.40 L Estimated GFR > 60.0 BUN/Creatinine Ratio 17.5 Glucose 108 H Calcium 8.4 Magnesium 1.4 L Total Bilirubin 4.7 H AST 69 H ALT 66 H Alkaline Phosphatase 87 Total Protein 6.4 Albumin 2.8 L Globulin 3.6 Albumin/Globulin Ratio 0.8 L Assessment & Plan Assessment & Plan narrative: 1. Alcoholic hepatitis-numbers continue to improve although protime remained stagnant. 2. Metabolic encephalopathy secondary to alcohol withdrawal-does seem to be slowly clearing. Is requiring less and less in the way of as needed benzodiazepines for agitation etc. Actually I intended to switch her to Zyprexa last night and stop the risperidone which I did. (I changed my mind after I dictated my note yesterday). She actually slept through the administration time for the Zyprexa as she was not awake and did not get an still has doing okay. No changes made today therefore. 3. Electrolytes-magnesium slightly low we will replace that with higher dose oral replacement. Overall she is clearly getting better albeit very very slowly. I do anticipate she should be ready go home sometime in the next 3-5 days more or less. She of course will need intensive treatment for her alcoholism which is already been discussed with her and her spouse and that conversation will need to continue. Note: Greater than 30 minutes was spent evaluating the patient on the floor, including examining the patient, discussing clinical course with clinical and nursing staff, reviewing clinical course in the computer, preparing document ation and writing orders for continued management of care, discussing status with family as appropriate, reviewing plans for the next 24 hours with both patient/family and nursing staff as appropriate.
[2018-07-21] MEDS: Fluticasone Furoate-Vilanterol [Breo Ellipta] 1 EACH INHALATION (10:38)
[2018-07-21] MEDS: PHYTONADIONE (VIT K1) 5 MG TABLET 10 MG PO (11:02)
[2018-07-21] MEDS: MAGNESIUM HYDROXIDE 30 ML UDC PO (11:03)
[2018-07-21] MEDS: SODIUM CHLORIDE 0.9% FLUSH 10 ML IV (11:03)
--- NOTE | 2018-07-21 11:30 | PT.IPTN ---
Current Diagnoses Alcohol dependence with withdrawal, unspecified (07/13/18) Physical Therapy Treatment Note M2 PT-IP Current Condition Start: 07/19/18 11:19 Freq: NEEDED Status: Active Protocol: Document 07/19/18 10:35 HH (Rec: 07/19/18 11:42 HH [email or web address]) Physical Therapy Current Condition Current Condition Evaluation Date 07/19/18 Treatment Diagnosis seizures, s/p fall, metabolic encephapathy, generalized weakness Onset Date 07/13/18 Weight Bearing Status Weight Bearing Status Weight Bear as Tolerated M3 PT-IP Subjective Start: 07/19/18 11:19 Freq: NEEDED Status: Active Protocol: Document 07/21/18 11:30 GGD (Rec: 07/21/18 12:26 GGD [id number]) Subjective Physical Therapy Visit Type Type Treatment Note Visit Start Time 11:05 Visit Stop Time 11:30 Total Visit Minutes 25 Number of CITRIX ARCHITECT Visits 2 Physical Therapy Visit Comments Patient Comments Pt just finshed with shower and is wants to tranfer to chair. M4 PT-IP Mobility and Gait Start: 07/19/18 11:19 Freq: NEEDED Status: Active Protocol: Document 07/21/18 11:30 GGD (Rec: 07/21/18 12:26 GGD [id number]) PT-Transfer Assessment Sit to and From Stand Sit to and from Stand Minimal Assistance 1 Person Assistance Use of Upper Extremities Equipment Transfer Assistive Device Gait Belt Front Wheeled Walker Transfers Transfer Destination Chair Transfer Ability Level of Assist Minimal Assistance 1 Person Assistance Use of Upper Extremities Gait Assessment Gait Gait Assistance Required: Minimum Assistance Moderate Assistance 1 Person Assist Distance (Feet) 23 Able to Maintain Weight Bearing Status Yes During Gait Assistive Devices Assistive Device Gait Belt Front Wheeled Walker Orthotic/Prosthetic Devices or Brace: No Gait Deviations General Gait Pattern Antalgic Decreased Stride Length Decreased Feet Clearance Factors Limiting Gait Function Factors Limiting Gait Function Decreased Activity Tolerance Decreased Strength Incoordination Comments Gait Comments Pt ambulated 8 feet with Min A . after seating in chair pt amublated 15 feet with min - mod A. M5 PT-IP Objective Assessments Start: 07/19/18 11:19 Freq: NEEDED Status: Active Protocol: Document 07/19/18 10:35 HH (Rec: 07/19/18 11:42 HH [email or web address]) Orientation Orientation/Cognition Level of Alertness Lethargic Orientation Name Age Birthday Month Year Situation Language Function Ability Garbled Speech Safety Awareness Decreased Safety Awareness Memory Description Short Term Impaired Retirement Impaired Comments Pt is awake and able to follow command. She is able to answer with slurred speech but overall remain sensual. Gross Range of Motion Upper Extremity ROM Assessment Bilaterally Impaired Impairments only able to reach her forehead Lower Extremity ROM Assessment Bilaterally Impaired Strength Upper Extremity Strength Assessment Bilaterally Impaired Lower Extremity Strength Assessment Bilaterally Impaired Comments Strength Comments grossly 3/5 for B UEs and LEs Coordination Assessment Gross Coordination Gross Coordination Impaired Assessment Finger to Nose Test Moderate Impairment Pronation/Supination Test Moderate Impairment Muscle Tone Comments Muscle Tone Comments Pt's skin appears very pale and yellow. M6 PT-IP Treatment Start: 07/19/18 11:19 Freq: NEEDED Status: Active Protocol: Document 07/19/18 10:35 HH (Rec: 07/19/18 11:42 HH [email or web address]) Physical Therapy Treatment Exercises Exercises Quad Sets Education Education Provided Safety M7 PT-IP Assessment and Plan Start: 07/19/18 11:19 Freq: NEEDED Status: Active Protocol: Document 07/21/18 11:30 GGD (Rec: 07/21/18 12:26 GGD [id number]) PT Summary Assessment and Plan Summary Assessment Summary Pt is improving with mobility. She was able to ambulate short distance. She had improved standing balance with decrease posterior lean. She was able to follow simple directions. Frequency of Treatment Frequency Of Treatment Once a Day Treatment Plan Physical Therapy Treatment Plan Bed Mobility Training Transfer Training Gait Training Therapeutic Exercise Balance Retraining Discharge Planning Neuromuscular Re-ed Other Recommendations and Next Treatment bed mob, transfer and gait Focus training as christo Recommendations To Nursing Amount of Assist Needed 1 Person Assist 2 Person Assist Discharge Recommendations PT Discharge Recommendations SNF Rehab
--- NOTE | 2018-07-21 14:10 | CM.DANOTE ---
DCP/continued: Reviewed chart. Patient working with therapy at time of MANAGER BRAND visit. RN reports that patient continues to be detoxing although getting better. RN reports patient alert but orientation continues to be questionable. Patient told RN today that she wants to go home. Patient's S/O Yevgeniy was in this AM. Not at bedside now. P: MANAGER BRAND/CM team to continue to follow closely for safe d/c planning. BRETT Adame
[2018-07-21] MEDS: OLANZapine 2.5 MG TABLET 5 MG PO (20:46)
[2018-07-21] MEDS: SENNOSIDES 8.6 MG TABLET PO (20:46)
[2018-07-22] VITALS (11 sets, daily range): BP systolic 93–103; BP diastolic 47–63; PULSE 64–82; RESP 11–20; TEMP 36.2–37.2; O2SAT 94–99
--- NOTE | 2018-07-22 02:57 | PC.NURSE ---
Addendum entered by Jeaneth rGady R.N. 07/22/18 06:36: Awoke on her own at 0615, asked to get up to void, know where she is and statesI feel better!. Stronger on her feet, balance still off. Original Note: Awoke alert and knew she was in the hospital, compliant, cheerful, and up to bsc to void, had been incont also.
[2018-07-22] MEDS: DEXTROSE 5%-NS W/KCL 20MEQ 1,000 ML 100 MEQ IV (05:44)
[2018-07-22] MEDS: chlordiazePOXIDE 25 MG CAPSULE 50 MG PO ×3 (06:23→17:46)
[2018-07-22] MEDS: Fluticasone Furoate-Vilanterol [Breo Ellipta] 1 EACH INHALATION (08:55)
[2018-07-22] MEDS: POTASSIUM CHLORIDE 20 MEQ/15 ML UDC PO ×2 (09:02→17:46)
[2018-07-22] MEDS: FOLIC ACID 1 MG TABLET PO (09:03)
[2018-07-22] MEDS: MAGNESIUM CHLORIDE 64 MG TABLET 128 MG PO ×2 (09:03→21:05)
[2018-07-22] MEDS: LORATADINE 10 MG TABLET PO (09:03)
[2018-07-22] MEDS: MULTIVITAMIN 1 TABLET 1 TAB PO (09:03)
[2018-07-22] MEDS: PHYTONADIONE (VIT K1) 5 MG TABLET 10 MG PO (09:04)
--- NOTE | 2018-07-22 10:36 | PM.PN.1 ---
Subjective Date Patient Seen: 07/22/18 Time Patient Seen: 10:37 Interval history: Patient appears to be improving again day-by-day. Sitting up in the bedside chair this morning. Spouse is in the room. She know she is in the hospital and desperately wants to go home. She does acknowledge that she was too weak on her feet to do much of anything and is even having trouble feeding herself because of weakness and some discoordination Certainly appears to be much more bright and alert. Spouse says her cognitive function seems to be much much improved although she is still not quite her normal self but he feels like she is also getting better day by day by day She has had a CIWA score of less than 8 now for greater than 24 hours. Certainly no further seizures Exam Vital Signs (past 8 hours): - 07/22/18 02:50 07/22/18 02:56 07/22/18 06:00 Temperature 99 F 98 F Pulse Rate 65 64 Respiratory Rate 11 L 17 Blood Pressure 94/48 L 93/49 L Pulse Oximetry 94 94 94 07/22/18 08:58 07/22/18 09:00 07/22/18 09:06 Temperature 97.1 F L Pulse Rate 71 Respiratory Rate 16 Blood Pressure 99/63 Pulse Oximetry 96 97 96 Oxygen Delivery Method Room Air Oxygen Flow Rate 0 Narrative Exam Narrative: Unchanged Objective Labs Result Diagrams: 07/18/18 04:55 07/21/18 04:39 Assessment & Plan Assessment & Plan narrative: 1. Alcoholic hepatitis-when last checked numbers are all improved. Continue with current therapies but I am going to stop the IV fluids. References I have consulted suggest continuing steroid therapy if felt to be effective for 28 days and so that will continue for now. 2. Metabolic encephalopathy due to alcohol withdrawal-much improved. Still not quite back to baseline but awfully close. Continue with supportive care 3. Generalized weakness etc-continue with physical therapy and occupational therapy. Skilled therapies are thus far recommending correction placement but I am very hopeful that patient's relatively young age will be of benefit to her and she will improve much more quickly than we usually anticipate and/or see here in the hospital full geriatric patients. However she is nowhere near being able to go home at this point even with home physical therapy. Continue to work with skilled therapies etc. 4. Seizures-likely secondary to alcohol withdrawal which is now in the past. She has also all still on large doses of benzodiazepines which should prevent any further seizures. I am going to take her off of the CIWA protocol and continue with the Librax and the other medications as as needed. She can be floor care without seizure precautions but on telemetry at least for now. Note: Greater than 30 minutes was spent evaluating the patient on the floor, including examining the patient, discussing clinical course with clinical and nursing staff, reviewing clinical course in the computer, preparing documentation and writing orders for continued management of care, discussing status with family as appropriate, reviewing plans for the next 24 hours with both patient/family and nursing staff as appropriate.
--- NOTE | 2018-07-22 11:07 | PT.IPTN ---
Current Diagnoses Alcohol dependence with withdrawal, unspecified (07/13/18) Physical Therapy Treatment Note M2 PT-IP Current Condition Start: 07/19/18 11:19 Freq: NEEDED Status: Active Protocol: Document 07/19/18 10:35 HH (Rec: 07/19/18 11:42 HH [email or web address]) Physical Therapy Current Condition Current Condition Evaluation Date 07/19/18 Treatment Diagnosis seizures, s/p fall, metabolic encephapathy, generalized weakness Onset Date 07/13/18 Weight Bearing Status Weight Bearing Status Weight Bear as Tolerated M3 PT-IP Subjective Start: 07/19/18 11:19 Freq: NEEDED Status: Active Protocol: Document 07/22/18 11:07 RCC (Rec: 07/22/18 12:50 RCC [id number]) Subjective Physical Therapy Visit Type Type Treatment Note Visit Start Time 11:07 Visit Stop Time 11:22 Total Visit Minutes 15 Number of BROADCAST TECHNICIAN Visits 0 Physical Therapy Visit Comments Patient Comments Pt is very motivated to return home. M4 PT-IP Mobility and Gait Start: 07/19/18 11:19 Freq: NEEDED Status: Active Protocol: Document 07/22/18 11:07 RCC (Rec: 07/22/18 12:50 RCC [id number]) PT-Transfer Assessment Sit to and From Stand Sit to and from Stand Minimal Assistance 1 Person Assistance Use of Upper Extremities Equipment Transfer Assistive Device Gait Belt Front Wheeled Walker Transfers Transfer Destination Chair Transfer Ability Level of Assist Minimal Assistance 1 Person Assistance Use of Upper Extremities Gait Assessment Gait Gait Assistance Required: Minimum Assistance 1 Person Assist Distance (Feet) 80 Assistive Devices Assistive Device Gait Belt Front Wheeled Walker Orthotic/Prosthetic Devices or Brace: No Gait Deviations General Gait Pattern Ataxic Decreased Stride Length Decreased Feet Clearance Factors Limiting Gait Function Factors Limiting Gait Function Decreased Activity Tolerance Decreased Strength Incoordination Poor Balance Comments Gait Comments Pt required 2 standing rest breaks to ambulate a total of 80 ft- posterior lean with inital standing and wide turns requring Min A to safely manage. O2 saturation 98% after gait, and [place] <100 bpm during entire session with monitoring using cordless pulse ox. M5 PT-IP Objective Assessments Start: 07/19/18 11:19 Freq: NEEDED Status: Active Protocol: Document 07/19/18 10:35 HH (Rec: 07/19/18 11:42 HH [email or web address]) Orientation Orientation/Cognition Level of Alertness Lethargic Orientation Name Age Birthday Month Year Situation Language Function Ability Garbled Speech Safety Awareness Decreased Safety Awareness Memory Description Short Term Impaired Intermediate Impaired Comments Pt is awake and able to follow command. She is able to answer with slurred speech but overall remain sensual. Gross Range of Motion Upper Extremity ROM Assessment Bilaterally Impaired Impairments only able to reach her forehead Lower Extremity ROM Assessment Bilaterally Impaired Strength Upper Extremity Strength Assessment Bilaterally Impaired Lower Extremity Strength Assessment Bilaterally Impaired Comments Strength Comments grossly 3/5 for B UEs and LEs Coordination Assessment Gross Coordination Gross Coordination Impaired Assessment Finger to Nose Test Moderate Impairment Pronation/Supination Test Moderate Impairment Muscle Tone Comments Muscle Tone Comments Pt's skin appears very pale and yellow. M6 PT-IP Treatment Start: 07/19/18 11:19 Freq: NEEDED Status: Active Protocol: Document 07/19/18 10:35 HH (Rec: 07/19/18 11:42 HH [email or web address]) Physical Therapy Treatment Exercises Exercises Quad Sets Education Education Provided Safety M7 PT-IP Assessment and Plan Start: 07/19/18 11:19 Freq: NEEDED Status: Active Protocol: Document 07/22/18 11:07 RCC (Rec: 07/22/18 12:50 RCC [id number]) PT Summary Assessment and Plan Summary Assessment Summary Pt improved with gait distance , managing 80 ft with FWW and Min A for initial rise to stand and with turns. Pt continues to have ataxic gait, not safe to mobilize without manual assistance. Pt is highly motivated to return home upon d/c, not safe from a physical stand-point today, but if she continues to improve it is possible she may be able to d/c to alternate options beyond SNF (either home with assistance vs inpatient from an addiction perspective per CM this a.m.). Goals Bed Mobility Goal Contact Guard Assistance Transfer Goal Contact Guard Assistance Front Wheeled Walker Gait Goal Contact Guard Assistance Front Wheel Walker Gait Distance 100 Other Goals to clear 2 steps without railings SBA Days to Meet Goals 10 Frequency of Treatment Frequency Of Treatment Once a Day Treatment Plan Other Recommendations and Next Treatment gait training, standing Focus balance, stairs when able Recommendations To Nursing Amount of Assist Needed 1 Person Assist 2 Person Assist Discharge Recommendations PT Discharge Recommendations SNF Rehab Other Discharge Recommendations SNF vs. home with assistance, or other treatment options from a medical stand-point. Equipment Needed for Home Before FWW Discharge
--- NOTE | 2018-07-22 18:36 | PC.NURSE ---
Addendum entered by Em Brumfield R.N. 07/22/18 19:55: 1945 - Pt reports feeling restless, request to ambulate. Ambulate around the unit. Pt asked if she could try ambulating with a cane instead of walker. Cane provided however pt was significantly more unsteady with cane use. Returned FWW. Pt at bedside. Pt repeating her desire for discharge to home. Original Note: 1829 - Pt agreeable to ambulate. Able to walk once around unit with fww. Unsteady gait especially while turning around. Reports feeling weakness in her knees. Following ambulation pt request to return to bed. Mostly oriented with occasional confused statement. Call light in reach. Bed alarm on.
[2018-07-22] MEDS: OLANZapine 2.5 MG TABLET 5 MG PO (21:05)
[2018-07-22] MEDS: SENNOSIDES 8.6 MG TABLET PO (21:05)
[2018-07-23] VITALS (8 sets, daily range): BP systolic 89–113; BP diastolic 47–73; PULSE 64–92; RESP 17–20; TEMP 36.3–36.6; O2SAT 91–98
--- NOTE | 2018-07-23 08:11 | PM.PN.1 ---
Subjective Date Patient Seen: 07/23/18 Time Patient Seen: 08:11 Interval history: Patient on the phone with her father when I came to see her. Still wants to go home desperately that is her biggest concern and complaint Has been up with staff and physical therapy. Still pretty shaky on her feet. Did try to use a cane but that was not enough support and still needs front wheeled walker Exam Vital Signs (past 8 hours): - 07/23/18 03:36 07/23/18 03:45 07/23/18 07:45 Temperature 97.8 F 97.6 F Pulse Rate 88 64 Respiratory Rate 18 17 Blood Pressure 93/52 L 89/47 L Pulse Oximetry 96 91 97 07/23/18 08:03 Temperature Pulse Rate Respiratory Rate Blood Pressure Pulse Oximetry 97 Oxygen Delivery Method Room Air Oxygen Flow Rate 0 Objective Labs Result Diagrams: 07/18/18 04:55 07/21/18 04:39 Assessment & Plan Assessment & Plan narrative: 1. Alcoholic hepatitis-plan to recheck numbers tomorrow. Repeat her platelet count her bilirubin LFTs her INR etc. Continue with vitamin K for now even though it is probably not having much of an impact which is usually the case in this setting. I will switch her steroids from IV to oral methylprednisolone. Upon discharge those which are probably to regular prednisolone a plan to continue for 28 days with a tapering course beginning the day of discharge. 2. Alcohol withdrawal seizures-no evidence of this at this time. Should not be given the large amount of benzodiazepines she has required and the time course would suggest she is beyond the usual time frame for seizures 3. Alcohol withdrawal induced metabolic encephalopathy-much much improved. Has not required any as needed medication the last 24 hours and very very little in the 48 hours prior to that. Will discontinue all the parental meds except for lorazepam which is as needed only. I am going to reduce her dose of chlordiazepoxide as well, she has missed a couple doses because she has been asleep and she has not been awaken to receive medication (appropriately so). 4. Weakness-continue to increase activity ambulate with staff and with physical therapy. I am still very hopeful that her relatively young age will be to her benefit in this situation and she will recover more quickly than many of my other hospitalized patients do. Time will tell however. I am hopeful that she could go home with home health services and some sort of caregiving at home rather than going to [place] [facility] but that has yet to really to be determined. 5. Alcoholism-again when patient ready for discharge need to have plan in place for her to receive treatment for her alcoholism as well. I defer specific details and options available locally to our care management staff. Note: Greater than 30 minutes was spent evaluating the patient on the floor, including examining the patient, discussing clinical course with clinical and nursing staff, reviewing clinical course in the computer, preparing documentation and writing orders for continued management of care, discussing status with family as appropriate, reviewing plans for the next 24 hours with both patient/family and nursing staff as appropriate.
[2018-07-23] MEDS: Fluticasone Furoate-Vilanterol [Breo Ellipta] 1 EACH INHALATION (08:52)
[2018-07-23] MEDS: POTASSIUM CHLORIDE 20 MEQ/15 ML UDC PO ×2 (08:59→17:35)
[2018-07-23] MEDS: MAGNESIUM CHLORIDE 64 MG TABLET 128 MG PO ×2 (08:59→20:06)
[2018-07-23] MEDS: LORATADINE 10 MG TABLET PO (08:59)
[2018-07-23] MEDS: PHYTONADIONE (VIT K1) 5 MG TABLET 10 MG PO (08:59)
[2018-07-23] MEDS: FOLIC ACID 1 MG TABLET PO (08:59)
[2018-07-23] MEDS: MULTIVITAMIN 1 TABLET 1 TAB PO (08:59)
[2018-07-23] MEDS: methylPREDNISolone 4 MG TABLET 32 MG PO (08:59)
[2018-07-23] MEDS: chlordiazePOXIDE 25 MG CAPSULE PO ×2 (11:31→17:35)
--- NOTE | 2018-07-23 11:53 | PC.NURSE ---
1100- Pt awoke from deep sleep and attempting to get OOB unassisted. Mildly confused/anxious. States she needs to check on a friend whose mother just . After sitting up for a moment, pt acknowledges that she's had a bad dream and self-orients. Emotional support provided and add'l reorientation provided which eased anxiety. VSS. Assisted up to BSC to void with fww, gait belt, 1PA. Offered pt up to chair. She declines stating the chair is uncomfortable. Dangled for a few minutes and provided PO clear ensure/librium then repositioned back to bed and reviewed use of call light and instructed to wait for assistance before getting OOB. She verbalizes understanding and provides return demonstration. Bed alarm on.
--- NOTE | 2018-07-23 12:05 | PT.IPTN ---
Current Diagnoses Alcohol dependence with withdrawal, unspecified (07/13/18) Physical Therapy Treatment Note M2 PT-IP Current Condition Start: 07/19/18 11:19 Freq: NEEDED Status: Active Protocol: Document 07/19/18 10:35 HH (Rec: 07/19/18 11:42 HH [id number]) Physical Therapy Current Condition Current Condition Evaluation Date 07/19/18 Treatment Diagnosis seizures, s/p fall, metabolic encephapathy, generalized weakness Onset Date 07/13/18 Weight Bearing Status Weight Bearing Status Weight Bear as Tolerated M3 PT-IP Subjective Start: 07/19/18 11:19 Freq: NEEDED Status: Active Protocol: Document 07/23/18 11:40 CLB (Rec: 07/23/18 12:34 CLB [id number]) Subjective Physical Therapy Visit Type Type Treatment Note Visit Start Time 11:40 Visit Stop Time 12:05 Total Visit Minutes 25 Number of MANAGER WAREHOUSE Visits 1 Physical Therapy Visit Comments Patient Comments Pt in bed upon arrival and very motivated to participate with therapy. M4 PT-IP Mobility and Gait Start: 07/19/18 11:19 Freq: NEEDED Status: Active Protocol: Document 07/23/18 11:40 CLB (Rec: 07/23/18 12:34 CLB [id number]) PT-Bed Mobility Assessment Supine to Sit Supine to Sit Standby Assistance Sit to Supine Sit to Supine Standby Assistance Scooting Scooting to Edge of Bed Standby Assistance Scooting Up and Down in Bed Standby Assistance PT-Transfer Assessment Sit to and From Stand Sit to and from Stand Contact Guard Assistance 1 Person Assistance Equipment Transfer Assistive Device Gait Belt Front Wheeled Walker Orthotic/Prosthetic Devices or Brace: No Transfers Transfer Destination Bed Transfer Ability Level of Assist Contact Guard Assistance 1 Person Assistance Use of Upper Extremities Comments Mobility Comments Pt is SBA supine<>sit and CGA for sit-stand. Pt required Max cues for hand placement on walker and bed for safety. Gait Assessment Gait Gait Assistance Required: Minimum Assistance 1 Person Assist Distance (Feet) 85 Able to Maintain Weight Bearing Status Yes During Gait Assistive Devices Assistive Device Gait Belt Front Wheeled Walker Orthotic/Prosthetic Devices or Brace: No Gait Deviations General Gait Pattern Ataxic Decreased Stride Length Decreased Feet Clearance Factors Limiting Gait Function Factors Limiting Gait Function Decreased Activity Tolerance Decreased Strength Incoordination Poor Balance Comments Gait Comments Pt needing verbal cues for making turns as pt makes wide turns pushing the walker too far out in front of her. Pt stated she felt like her knees were weak and may buckle. Pt had no episodes of buckling during gait and had no c/o increased pain with gait. Stair Climbing Assessment Comments Stair Climbing Comments Pt stated if she goes through garage she has no steps into house. Pt also stated the walker would fit through garage to door. Will need to confirm this with S/O Mukul. M5 PT-IP Objective Assessments Start: 07/19/18 11:19 Freq: NEEDED Status: Active Protocol: Document 07/19/18 10:35 HH (Rec: 07/19/18 11:42 HH [id number]) Orientation Orientation/Cognition Level of Alertness Lethargic Orientation Name Age Birthday Month Year Situation Language Function Ability Garbled Speech Safety Awareness Decreased Safety Awareness Memory Description Short Term Impaired Jail Impaired Comments Pt is awake and able to follow command. She is able to answer with slurred speech but overall remain sensual. Gross Range of Motion Upper Extremity ROM Assessment Bilaterally Impaired Impairments only able to reach her forehead Lower Extremity ROM Assessment Bilaterally Impaired Strength Upper Extremity Strength Assessment Bilaterally Impaired Lower Extremity Strength Assessment Bilaterally Impaired Comments Strength Comments grossly 3/5 for B UEs and LEs Coordination Assessment Gross Coordination Gross Coordination Impaired Assessment Finger to Nose Test Moderate Impairment Pronation/Supination Test Moderate Impairment Muscle Tone Comments Muscle Tone Comments Pt's skin appears very pale and yellow. M6 PT-IP Treatment Start: 07/19/18 11:19 Freq: NEEDED Status: Active Protocol: Document 07/23/18 11:40 CLB (Rec: 07/23/18 12:34 CLB [id number]) Physical Therapy Treatment Exercises Exercises Ankle Pumps Quad Sets Heel Slides Seated Knee Flexion/Extension Education Education Provided Safety M7 PT-IP Assessment and Plan Start: 07/19/18 11:19 Freq: NEEDED Status: Active Protocol: Document 07/23/18 11:40 CLB (Rec: 07/23/18 12:34 CLB [id number]) PT Summary Assessment and Plan Summary Impairments ROM Strength Balance Cognition Bed Mobility Transfers Gait Activity Tolerance Assessment Summary Pt continues to be motivated to do therapy but continues to require manual assist with sit-stand and gait. PT not safe from a physical stand- point today, but if she continues to improve it is possible she may be able to d/ c to alternate options beyond SNF (either home with assistance vs inpatient from an addiction perspective per CM this a.m.). Goals Bed Mobility Goal Contact Guard Assistance Transfer Goal Contact Guard Assistance Front Wheeled Walker Gait Goal Contact Guard Assistance Front Wheel Walker Gait Distance 100 Other Goals to clear 2 steps without railings SBA/ pt has no steps into house through garage ( needing to confirm with Mukul) Days to Meet Goals 10 Frequency of Treatment Frequency Of Treatment Once a Day Treatment Plan Other Recommendations and Next Treatment gait training, standing Focus balance, stairs when able Recommendations To Nursing Amount of Assist Needed 1 Person Assist 2 Person Assist Discharge Recommendations PT Discharge Recommendations SNF Rehab Other Discharge Recommendations SNF vs. home with assistance, or other treatment options from a medical stand-point. Equipment Needed for Home Before FWW Discharge
[2018-07-23] MEDS: OLANZapine 2.5 MG TABLET 5 MG PO (20:06)
[2018-07-23] MEDS: SENNOSIDES 8.6 MG TABLET PO (20:06)
[2018-07-24] VITALS (8 sets, daily range): BP systolic 91–109; BP diastolic 45–60; PULSE 62–74; RESP 14–20; TEMP 36.4–36.8; O2SAT 91–98
[2018-07-24] MEDS: chlordiazePOXIDE 25 MG CAPSULE PO ×3 (04:56→20:35)
[2018-07-24 05:05] LABS: INR 1.8 (0.9-1.3); Prothrombin Time 21.5 SECONDS (10.1-12.7)
[2018-07-24 05:08] LABS: Add Manual Diff / Slide Review NO; Basophils Absolute Auto 0 /uL (0-100); Basophils Percent Auto 0.3 % (0-2); Eosinophils Absolute Auto 0 /uL (0-450); Eosinophils Percent Auto 0.3 % (2-4); Hematocrit 31.5 % (36-46); Hemoglobin 10.5 g/dL (12.0-16.0); Lymphocytes Absolute Auto 1500 /uL (1100-4500); Lymphocytes Percent Auto 11.8 % (25-40); Mean Corpuscular HGB Conc 33.4 % (30-36); Mean Corpuscular Hemoglobin 36.2 PG (26-34); Mean Corpuscular Volume 108.3 fL (80-100); Monocytes Absolute Auto 1100 /uL (0-900); Monocytes Percent Auto 8.9 % (3-14); Neutrophils Absolute Auto 10000 /uL (1500-7000); Neutrophils Percent Auto 78.7 % (50-75); Platelet Count 98 X10^3/uL (150-400); Red Blood Cell Count 2.91 X10^6/uL (4.0-5.2); Red Cell Distribution Width 14.6 % (11.6-14.8); White Blood Cell Count 12.6 X10^3/uL (4.5-11.0)
[2018-07-24 05:14] LABS: Alanine Aminotransferase 75 IU/L (9-52); Albumin 2.9 g/dL (3.5-5.0); Albumin Globulin Ratio 0.8 (1.0-2.8); Alkaline Phosphatase 138 U/L (38-126); Aspartate Aminotransferase 71 IU/L (14-36); Bilirubin Total 4.1 mg/dL (0.2-1.3); Bilirubin Unconjugated 1.6 mg/dL (0.0-1.1); Blood Urea Nitrogen 12 mg/dL (7-17); Calcium 8.9 mg/dL (8.4-10.2); Carbon Dioxide 27 mmol/L (22-32); Chloride 106 mmol/L (98-107); Estimated Glomerular Filt Rate > 60.0 mL/min (>60); Globulin 3.5 g/dL (1.7-4.1); Glucose 149 mg/dL (70-100); HEMOLYSIS < 15 (0-50); Magnesium 1.6 mg/dL (1.6-2.3); Sodium 139 mmol/L (137-145); Total Protein 6.4 g/dL (6.3-8.2)
--- NOTE | 2018-07-24 06:32 | PC.NURSE ---
Slept well until 0530, then up to chair and ambulated around ICU with walker, gait belt, and 1 person assist. Midnight Librium held due to sleeping, am dose given at 0500. VSS, am labs drawn.
--- NOTE | 2018-07-24 07:37 | PM.PN.1 ---
Subjective Date Patient Seen: 07/24/18 Time Patient Seen: 07:38 Interval history: Patient talking to her father in [place] again on the phone this morning. Seems very with it awake alert. Some disorientation upon awakening but easily reoriented back to reality Has been up with physical therapy and does appear to be improving day by day No new complaints issues problems Exam Vital Signs (past 8 hours): - 07/24/18 00:35 07/24/18 00:36 07/24/18 05:03 Temperature 98.2 F 98.3 F Pulse Rate 68 70 Respiratory Rate 18 14 Blood Pressure 101/49 L 108/58 L Pulse Oximetry 91 96 93 Oxygen Delivery Method Room Air Oxygen Flow Rate 0 Objective Labs Result Diagrams: 07/24/18 04:43 07/24/18 04:43 Labs: Laboratory Results - last 24 hr 07/24/18 07/24/18 07/24/18 04:43 04:43 04:43 WBC 12.6 H RBC 2.91 L Hgb 10.5 L Hct 31.5 L MCV 108.3 H MCH 36.2 H MCHC 33.4 RDW 14.6 Plt Count 98 L Neut % (Auto) 78.7 H Lymph % (Auto) 11.8 L [place] % (Auto) 8.9 Eos % (Auto) 0.3 L Baso % (Auto) 0.3 Neut # (Auto) 18574 H Lymph # (Auto) 1500 [place] # (Auto) 1100 H Eos # (Auto) 0 Baso # (Auto) 0 PT 21.5 H INR 1.8 H Sodium 139 Potassium 4.0 Chloride 106 Carbon Dioxide 27 BUN 12 Creatinine 0.40 L Estimated GFR > 60.0 BUN/Creatinine Ratio 30.0 H Glucose 149 H Calcium 8.9 Magnesium 1.6 Total Bilirubin 4.1 H Conjugated Bilirubin 0.0 Unconjugated Bilirubin 1.6 H AST 71 H ALT 75 H Alkaline Phosphatase 138 H D Total Protein 6.4 Albumin 2.9 L Globulin 3.5 Albumin/Globulin Ratio 0.8 L Assessment & Plan Assessment & Plan narrative: 1. Alcoholic hepatitis-repeat lab work this morning shows continued improvement on all fronts. INR slightly improved. Bilirubin improved although still not normal. LFTs stable. Thrombocytopenia improved. Alkaline phosphatase bumped up likely related to increased oral intake but not significant in my opinion. Continue with oral steroids and plan for taper once she is discharged but to complete 28 days total 2. Metabolic encephalopathy secondary to alcohol withdrawal-appears to be at baseline or nearly so. Continue with supportive treatment as above 3. Weakness-continue with physical therapy. Home physical therapy would be helpful and will work to arrange for that as well. 4. 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 Alcoholism-spend some time discussing with her this morning the need for her not to drink ever again in the future. Even 1 drink would be too many. She already says the alcohol has been removed from the house which is good. We talked about what to do in social situations such as either leaving or having an alternative beverage such as a Coca-Cola or something in her hand already so no one offers her a glass of wine or something like that. She seems committed at the moment not drink again which is good. 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 I emphasized that everyone is different in this certainly could be the end of her drinking and that she may well be very successful moving forward, but we want to provide her with resources to help her quit if she needs additional resources which frankly most people do require. I think she heard that did she fully understand it is not clear to me. Overall patient is significantly improved and I think she more likely than not be ready for discharge home tomorrow the 25 of July. I would like her to have resources available to her for alcohol cessation and treatment inpatient and outpatient programs emergency numbers etc. eventually when she is able to leave the home something like alcoholics anonymous could be very helpful as well. She would benefit from home health services including physical therapy occupational therapy at least in the relatively short term. Again I think because she has in her 40s, she will bounce back much more rapidly than our typical patients here at [facility]. Note: Greater than 30 minutes was spent evaluating the patient on the floor, including examining the patient, discussing clinical course with clinical and nursing staff, reviewing clinical course in the computer, preparing documentation and writing orders for continued management of care, discussing status with family as appropriate, reviewing plans for the next 24 hours with both patient/family and nursing staff as appropriate.
--- NOTE | 2018-07-24 07:43 | P.PN_ITS ---
Subjective Date Patient Seen: 07/24/18 Time Patient Seen: 07:38 Interval history: Patient talking to her father in [place] again on the phone this morning. Seems very with it awake alert. Some disorientation upon awakening but easily reoriented back to reality Has been up with physical therapy and does appear to be improving day by day No new complaints issues problems Exam Vital Signs (past 8 hours): - 07/24/18 00:35 07/24/18 00:36 07/24/18 05:03 Temperature 98.2 F 98.3 F Pulse Rate 68 70 Respiratory Rate 18 14 Blood Pressure 101/49 L 108/58 L Pulse Oximetry 91 96 93 Oxygen Delivery Method Room Air Oxygen Flow Rate 0 Objective Labs Result Diagrams: 07/24/18 04:43 07/24/18 04:43 Labs: Laboratory Results - last 24 hr 07/24/18 07/24/18 07/24/18 04:43 04:43 04:43 WBC 12.6 H RBC 2.91 L Hgb 10.5 L Hct 31.5 L MCV 108.3 H MCH 36.2 H MCHC 33.4 RDW 14.6 Plt Count 98 L Neut % (Auto) 78.7 H Lymph % (Auto) 11.8 L [place] % (Auto) 8.9 Eos % (Auto) 0.3 L Baso % (Auto) 0.3 Neut # (Auto) 67993 H Lymph # (Auto) 1500 [place] # (Auto) 1100 H Eos # (Auto) 0 Baso # (Auto) 0 PT 21.5 H INR 1.8 H Sodium 139 Potassium 4.0 Chloride 106 Carbon Dioxide 27 BUN 12 Creatinine 0.40 L Estimated GFR > 60.0 BUN/Creatinine Ratio 30.0 H Glucose 149 H Calcium 8.9 Magnesium 1.6 Total Bilirubin 4.1 H Conjugated Bilirubin 0.0 Unconjugated Bilirubin 1.6 H AST 71 H ALT 75 H Alkaline Phosphatase 138 H D Total Protein 6.4 Albumin 2.9 L Globulin 3.5 Albumin/Globulin Ratio 0.8 L Assessment & Plan Assessment & Plan narrative: 1. Alcoholic hepatitis-repeat lab work this morning shows continued improvement on all fronts. INR slightly improved. Bilirubin improved although still not normal. LFTs stable. Thrombocytopenia improved. Alkaline phosphatase bumped up likely related to increased oral intake but not significant in my opinion. Continue with oral steroids and plan for taper once she is discharged but to complete 28 days total 2. Metabolic encephalopathy secondary to alcohol withdrawal-appears to be at baseline or nearly so. Continue with supportive treatment as above 3. Weakness-continue with physical therapy. Home physical therapy would be helpful and will work to arrange for that as well. 4. 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 Alcoholism-spend some time discussing with her this morning the need for her not to drink ever again in the future. Even 1 drink would be too many. She already says the alcohol has been removed from the house which is good. We talked about what to do in social situations such as either leaving or having an alternative beverage such as a Coca-Cola or something in her hand already so no one offers her a glass of wine or something like that. She seems committed at the moment not drink again which is good. I did discuss with her that I had others in this exact situation after prolonged hospital stay tell me the same thing and yet there back to drinking within couple of weeks or couple of months and I hope that that does not garment turner to be her. I emphasized that everyone is different in this certainly could be the end of her drinking and that she may well be very successful moving forward, but we want to provide her with resources to help her quit if she needs additional resources which frankly most people do require. I think she heard that did she fully understand it is not clear to me. Overall patient is significantly improved and I think she more likely than not be ready for discharge home tomorrow the 25 of July. I would like her to have resources available to her for alcohol cessation and treatment inpatient and out patient programs emergency numbers etc. eventually when she is able to leave the home something like alcoholics anonymous could be very helpful as well. She would benefit from home health services including physical therapy occupational therapy at least in the relatively short term. Again I think because she has in her 40s, she will bounce back much more rapidly than our typical patients here a [facility]. Note: Greater than 30 minutes was spent evaluating the patient on the floor, including examining the patient, discussing clinical course with clinical and nursing staff, reviewing clinical course in the computer, preparing documentation and writing orders for continued management of care, discussing status with family as appropriate, reviewing plans for the next 24 hours with both patient/family and nursing staff as appropriate.
[2018-07-24] MEDS: Fluticasone Furoate-Vilanterol [Breo Ellipta] 1 EACH INHALATION (08:30)
[2018-07-24] MEDS: MAGNESIUM CHLORIDE 64 MG TABLET 128 MG PO ×2 (08:38→20:36)
[2018-07-24] MEDS: FOLIC ACID 1 MG TABLET PO (08:39)
[2018-07-24] MEDS: LORATADINE 10 MG TABLET PO (08:39)
[2018-07-24] MEDS: MULTIVITAMIN 1 TABLET 1 TAB PO (08:39)
[2018-07-24] MEDS: methylPREDNISolone 4 MG TABLET 32 MG PO (08:39)
[2018-07-24] MEDS: PHYTONADIONE (VIT K1) 5 MG TABLET 10 MG PO (08:39)
[2018-07-24] MEDS: SODIUM CHLORIDE 0.9% FLUSH 10 ML IV (08:40)
[2018-07-24] MEDS: POTASSIUM CHLORIDE 20 MEQ/15 ML UDC PO ×2 (08:40→16:40)
[2018-07-24] MEDS: MAGNESIUM HYDROXIDE 30 ML UDC PO (08:47)
--- NOTE | 2018-07-24 09:45 | PT.IPTN ---
Current Diagnoses Alcohol dependence with withdrawal, unspecified (07/13/18) Physical Therapy Treatment Note M2 PT-IP Current Condition Start: 07/19/18 11:19 Freq: NEEDED Status: Active Protocol: Document 07/19/18 10:35 HH (Rec: 07/19/18 11:42 HH [id number]) Physical Therapy Current Condition Current Condition Evaluation Date 07/19/18 Treatment Diagnosis seizures, s/p fall, metabolic encephapathy, generalized weakness Onset Date 07/13/18 Weight Bearing Status Weight Bearing Status Weight Bear as Tolerated M3 PT-IP Subjective Start: 07/19/18 11:19 Freq: NEEDED Status: Active Protocol: Document 07/24/18 09:20 CLB (Rec: 07/24/18 11:14 CLB [id number]) Subjective Physical Therapy Visit Type Type Treatment Note Visit Start Time 09:20 Visit Stop Time 09:45 Total Visit Minutes 25 Number of FIELD SPECIALIST Visits 2 Physical Therapy Visit Comments Patient Comments Pt agreeable to do therapy. M4 PT-IP Mobility and Gait Start: 07/19/18 11:19 Freq: NEEDED Status: Active Protocol: Document 07/24/18 09:20 CLB (Rec: 07/24/18 11:14 CLB [id number]) PT-Bed Mobility Assessment Supine to Sit Supine to Sit Standby Assistance Sit to Supine Sit to Supine Standby Assistance Scooting Scooting to Edge of Bed Standby Assistance Scooting Up and Down in Bed Standby Assistance PT-Transfer Assessment Sit to and From Stand Sit to and from Stand Contact Guard Assistance 1 Person Assistance Equipment Transfer Assistive Device Gait Belt Front Wheeled Walker Orthotic/Prosthetic Devices or Brace: No Transfers Transfer Destination Bed Transfer Ability Level of Assist Contact Guard Assistance 1 Person Assistance Use of Upper Extremities Comments Mobility Comments Pt doing better today with following simple commands with hand placement. Gait Assessment Gait Gait Assistance Required: Contact Guard Assist 1 Person Assist Distance (Feet) 130 Able to Maintain Weight Bearing Status Yes During Gait Assistive Devices Assistive Device Gait Belt Front Wheeled Walker Orthotic/Prosthetic Devices or Brace: No Gait Deviations General Gait Pattern Ataxic Decreased Stride Length Decreased Feet Clearance Narrow Based Gait Factors Limiting Gait Function Factors Limiting Gait Function Decreased Activity Tolerance Decreased Strength Incoordination Poor Balance Comments Gait Comments Pt improving with turns able to stay inside walker and use smaller steps with cues before beginning a turn. Pt improved with response to commands with stopping or making a turn left or right. Stair Climbing Assessment Comments Stair Climbing Comments Pt stated if she goes through garage she has no steps into house. Pt also stated the walker would fit through garage to door. Will need to confirm this with S/O Mukul. M5 PT-IP Objective Assessments Start: 07/19/18 11:19 Freq: NEEDED Status: Active Protocol: Document 07/19/18 10:35 HH (Rec: 07/19/18 11:42 HH [id number]) Orientation Orientation/Cognition Level of Alertness Lethargic Orientation Name Age Birthday Month Year Situation Language Function Ability Garbled Speech Safety Awareness Decreased Safety Awareness Memory Description Short Term Impaired Systems Development Manager Impaired Comments Pt is awake and able to follow command. She is able to answer with slurred speech but overall remain sensual. Gross Range of Motion Upper Extremity ROM Assessment Bilaterally Impaired Impairments only able to reach her forehead Lower Extremity ROM Assessment Bilaterally Impaired Strength Upper Extremity Strength Assessment Bilaterally Impaired Lower Extremity Strength Assessment Bilaterally Impaired Comments Strength Comments grossly 3/5 for B UEs and LEs Coordination Assessment Gross Coordination Gross Coordination Impaired Assessment Finger to Nose Test Moderate Impairment Pronation/Supination Test Moderate Impairment Muscle Tone Comments Muscle Tone Comments Pt's skin appears very pale and yellow. M6 PT-IP Treatment Start: 07/19/18 11:19 Freq: NEEDED Status: Active Protocol: Document 07/24/18 09:20 CLB (Rec: 07/24/18 11:14 CLB [id number]) Physical Therapy Treatment Exercises Exercises Ankle Pumps Quad Sets Heel Slides Straight Leg Raises Short Arc Quads Seated Knee Flexion/Extension M7 PT-IP Assessment and Plan Start: 07/19/18 11:19 Freq: NEEDED Status: Active Protocol: Document 07/24/18 09:20 CLB (Rec: 07/24/18 11:14 CLB [id number]) PT Summary Assessment and Plan Summary Impairments ROM Strength Balance Cognition Bed Mobility Transfers Gait Activity Tolerance Assessment Summary Pt improving with following commands with quicker response time. Pt required CGA with ambulation needing less assist , pt able to stand up straight , make safer turns and increased gait distance. Caregiver training with Mukul before d/c. Goals Bed Mobility Goal Contact Guard Assistance Transfer Goal Contact Guard Assistance Front Wheeled Walker Gait Goal Contact Guard Assistance Front Wheel Walker Gait Distance 100 Other Goals to clear 2 steps without railings SBA/ pt has no steps into house through garage ( needing to confirm with Mukul) Days to Meet Goals 10 Frequency of Treatment Frequency Of Treatment Once a Day Treatment Plan Other Recommendations and Next Treatment gait training, standing Focus balance, stairs when able Recommendations To Nursing Amount of Assist Needed 1 Person Assist Discharge Recommendations PT Discharge Recommendations SNF Rehab Other Discharge Recommendations SNF vs. home with 24/7 assist, or other treatment options from a medical stand-point. Equipment Needed for Home Before FWW Discharge
--- NOTE | 2018-07-24 10:17 | PC.NURSE ---
Pt alert, oriented, calm and cooperative. Denies pain and nausea. Walked with physical therapy around nursing station.
--- NOTE | 2018-07-24 14:16 | CM.DPNOTE ---
LIMOUSINE AND HEARSE UPHOLSTERER/DCP Note: Reviewed chart. Patient anticipated to be medically stable for discharge within the next 24-48hrs. Patient currently LOS day#11. Spoke with RN and she reports patient alert and oriented x3 today. Patient has been followed by therapy and home with assist recommended. Patient most likely will need FWW ordered prior to d/c. LIMOUSINE AND HEARSE UPHOLSTERER met with patient explained role. Patient alert and oriented and very pleasant during assessment. Patient requested that interview remain confidential, which LIMOUSINE AND HEARSE UPHOLSTERER assured her it would. Patient reports that her Mother was an alcoholic and at the age of 47. Patient teary at mention of her Mother. Patient reports that she started drinking alcohol at the age of 10. Patient did not start drinking heavily until in her 20's. Patient moved to [place] and began drinking heavily. Drink of choice then was vodka. In 2008, patient got extremely ill and had to be treated for an ulcer. Patient reports that at that time she went home and detoxed on her own. Patient does not recall having any seizures but does recall it being hell. Patient started drinking again short time later and at that time drink of choice was beer, which soon turned into white wine everyday (current). Patient aware that she has disease and does not recall ever being in/or seeking out recovery? Patient aware of 12-step program and would like to attend upon d/c from [facility]. Patient reports that she has supportive significant other/Yevgeniy. Encouraged patient to consider intensive outpatient treatment program. Patient willing to consider but feels that she will be okay with A.A. Provided patient with community resources for A.A. meetings and intensive outpatient programs. Patient aware that she should avoid all alcohol and attend 90 meetings in 90 days. P: Home when stable. Patient provided with community resources and instructed to avoid alcohol. Patient may need FWW for home use. RBETT Adame
--- NOTE | 2018-07-24 14:21 | OT.IP.EVAL ---
Current Diagnoses Alcohol dependence with withdrawal, unspecified (07/13/18) Past Medical History (Last Reviewed 07/14/18 @ 10:21 by David Tran MD) Chronic migraine (Chronic) Major depressive disorder, recurrent, moderate (Chronic 12/31/10) Gastro-esophageal reflux (Chronic 12/31/10) Allergic rhinitis (Chronic) Asthma (Chronic) Bipolar disorder (Chronic) Duodenal ulcer (Chronic 09/2009) Surgical History (Last Reviewed 07/14/18 @ 10:21 by David Tran MD) Status post endoscopy (Resolved 09/2009) Occupational Therapy Inpatient Evaluation/Re-Eval M1 PT/OT-IP Prior Functional Status Start: 07/19/18 11:19 Freq: NEEDED Status: Active Protocol: Document 07/24/18 14:21 [email or web address] (Rec: 07/24/18 15:57 JAMES [id number]) Medical Review Prior Functional Status Medical History Reviewed Yes Diet/Fluid Consistency Regular Communication WNL Mobility and Gait Pt was independent with mobility without a device at home and in community. 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 M2 OT-IP Current Condition Start: 07/24/18 15:21 Freq: Status: Active Protocol: Document 07/24/18 14:21 [email or web address] (Rec: 07/24/18 15:57 JAMES [id number]) Occupational Therapy Current Condition Current Condition Evaluation Date 07/24/18 Treatment Diagnosis decreased self care,mobility, cognition s/p ETOH related seizure Diagnosis Onset Date 07/13/18 Post Operative Precautions Other Precautions fall risk, decreased safety awareness, impulsivity M3 OT- IP Subjective and Pain Start: 07/24/18 15:21 Freq: Status: Active Protocol: Document 07/24/18 14:21 PJM (Rec: 07/24/18 15:57 [facility] [id number]) OT- Subjective Occupational Therapy Visit Type Type Initial Evaluation Visit Start Time 13:20 Visit Stop Time 14:21 Total Visit Minutes 61 Occupational Therapy Visit Comments Patient Comments What can I do to get better? Are you going to tell the doctor how badly I did? Patient/Caregiver Goals to get stronger and go home and back to work OT Pain Assessment Pain When Pain Assessed After Treatment Pain Present Pain Present Denied Pain M4 OT- IP ADL's Start: 07/24/18 15:21 Freq: Status: Active Protocol: Document 07/24/18 14:21 PJ (Rec: 07/24/18 15:57 [facility] [id number]) OT [id number] General Evaluation Self-Feeding Ability Independent OT ADL-Grooming Comments OT Grooming Comments did not occur this session, to be assessed OT ADL-Oral Care Comments Oral Care Comments did not occur this session, to be assessed OT ADL-Dressing General Eval Upper Body Dressing Ability Standby Assistance Lower Body Dressing Ability Standby Assistance Areas Needing Assistance Underpants/Brief Socks OT ADL-Toileting Comments OT Toileting Comments did not occur, to be assessed OT ADL-Bathing Comments OT Bathing Comments pt agreed to shower tomorrow M5 OT- IP IADL's Start: 07/24/18 15:21 Freq: Status: Active Protocol: Document 07/24/18 14:21 PJ (Rec: 07/24/18 15:57 [facility] [id number]) OT-Instrumental Activities of Daily Living Deficits IADL Deficits Identified Deficits Home Safety Awareness Awareness of Need for Assistance at Home Decreased Awareness Medication Management Medication Management Comments Recommend pt have supervision for all medication management at present due to decreased memory Money Management Money Management Comments Recommend pt have supervision for all financial services manager at present due to decreased memory and functional cognition Meal Preparation Meal Preparation Comments Recommend pt have assistance with meal planning and hot meal preparation due to decreased functional cognition and memory Family Law Paralegal Family Law Paralegal Comments Recommend pt have assistance at present due to decreased balance, endurance and mobility Driving Driving Concerns Identified Regarding Safety Driving Comments Recommend pt NOT drive at this time due to decreased functional cognition, slow speed of processing and difficulty with divided attention. See results of Trailmaking A/B tests below. M6 OT- IP Functional Cognition Start: 07/24/18 15:21 Freq: Status: Active Protocol: Document 07/24/18 14:21 PJ (Rec: 07/24/18 15:57 PJ [id number]) Cognitive Factors Limiting Selfcare Function Cognitive Ability Level of Alertness Alert Patient Orientation Name Age Month Year Day of Week Place Situation Attention Span Ability Capable of Focused Attention Capable of Sustained Attention Ability to Follow Commands Able to Follow One Step Commands Memory Description Short Term Impaired Working Impaired Safety Awareness Decreased Recall of Precautions Decreased Ability to Apply Precautions Underestimates Need for Assistance Problem Solving Ability Unable to Identify Errors Needs Assist to Identify Solutions Executive Function Ability Unable to Remember Details Cognitive Tests SLUMS Pt scored 23/30 (Norm is 27/30). Pt had difficulty with orientation(date), mental math , short term and working memory and unable to place numbers correctly on clock drawing even on second attempt . Word generation mildly slowed. Cognitive Comments Cognitive Assessment Comments Also administered Trailmaking A/B test. Pt completed Trails A in 82 sec, skipping one number near end of test. Norm is <35 sec. Pt's score is in significant and severe impairment range. Pt completed Trails B in 243 sec, requiring near constant cues for sequence starting midway through task. Norm IS < 85 sec. Pt's score is in significant and severe impairment range. Per AMA guidelines, persons taking longer than 180 sec on Trails B are at increased risk of auto accident in the upcoming year. Pt has difficulty with multi step directions requiring multiple repetitions of instructions. Pt impulsive with decreased safety awareness noted. OT- Vision and Hearing OT- Hearing Assessment OT- Hearing Assessment WFL OT- Vision Assessment Visual Acuity WFL Glasses All The Time Visual Attentiveness WFL Vision Assessment Comments Pt needs min verbal cues to scan entire field when playing [employer] card game M7 OT- IP Mobility and Balance Start: 07/24/18 15:21 Freq: Status: Active Protocol: Document 07/24/18 14:21 PJ (Rec: 07/24/18 15:57 [facility] [id number]) OT- Bed Mobility Assessment Supine to Sit Supine to Sit Assist Standby Assistance Scooting Scooting to Edge of Bed Standby Assistance OT-Transfer Assessment Sit to and From Stand Sit to and from Stand Contact Guard Assistance 1 Person Assistance Transfers Transfer Ability Contact Guard Assistance 1 Person Assistance Technique Transfer Destination Chair Transfer Technique Stand Step Pivot Devices Transfer Assistive Devices Front Wheeled Walker OT- Gait Assessment Comments Gait Ability Comments see P.T. notes OT- Balance Assessment Sitting Balance and Reactions Static Sitting Balance Ability Good Standing Balance and Reactions Static Standing Balance Ability Good Comments Other Balance Tests/Deviations/Treatment see P.T. notes : M8 OT- IP Objective Assessments Start: 07/24/18 15:21 Freq: Status: Active Protocol: Document 07/24/18 14:21 PJM (Rec: 07/24/18 15:57 PJ [id number]) OT Gross Range of Motion Upper Extremity Range of Motion Assessment Within Functional Limits OT Strength Upper Extremity Strength Assessment Bilaterally Impaired Comments Strength Comments generalized weakness noted in BUE with strength in 4- to 4/5 range; no focal weakness noted OT- Coordination Assessment Upper Extremity Finger to Nose Test Bilateral UE Impaired Finger Tapping Test Bilateral UE Impaired Comments Coordination Comments mild BUE/hand tremors noted, handwriting 90% legible with pt reporting it is messier than usual OT-Muscle Tone Assessment Muscle Tone WNL Yes OT Sensation Assessment Comments Summary Comments Pt detects lt touch in BUE's; denies deficits M9 OT- IP Assessment and Plan Start: 07/24/18 15:21 Freq: Status: Active Protocol: Document 07/24/18 14:21 PJM (Rec: 07/24/18 15:57 PJ [id number]) OT Summary Assessment and Plan Potential Rehabilitation Potential Good Analytic Complexity at Evaluation Low Summary OT Impairments Strength Balance Coordination Functional Cognition Functional Mobility Dressing Toileting Bathing Toilet Transfers Shower Transfers Assessment Summary Moderate complexity OT assessment completed on this 42 yr old pt admitted for ETOH withdrawal and seizure with additional time needed for functional cognition assessment. Pt presents with generalized weakness in BUE's and deconditioning from 10 day hospitalization with decreased independence, balance, endurance in all functional mobility/transfers and standing self care tasks. She also has significant performance deficits in functional cognition as described above. Pt lacks some insight into severity of current deficits with some impulsivity and decreased safety awareness noted. Pt does agree NOT to drive at this time. Pt currently needs 24 hr assist for safety and recommend OT services to increase functional cognition, independence, safety in higher level self care such as showering with progression to IADLS in home setting. 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 Goals Grooming Goal Independent Dressing Goal Independent Toileting Goal Independent Bathing Goal Standby Assistance Toilet Transfer Goal Independent Shower Transfer Goal Standby Assistance Walk-in Shower Shower Chair Patient/Caregiver Education Goal Demonstrate Energy Conservation and Pacing Caregiver Independent Assisting Patient OT-Other Goals Grooming to be done standing at sink with no loss of balance and good safety awareness. Pt to complete functional cognition tasks relating to meal prep, money and medication management with min cues and 90% accuracy. Days to Meet Goals 5 Frequency of Treatment Frequency Of Treatment Once a Day Treatment Plan OT Treatment Plan ADL Training Functional Cognition Training Functional Mobility Patient/Family Education Discharge Planning Discharge Recommendations OT Discharge Recommendations Home with 26/09 Assist Home Health Home Equipment Needs shower seat
[2018-07-24] MEDS: SENNOSIDES 8.6 MG TABLET PO (20:36)
[2018-07-24] MEDS: OLANZapine 2.5 MG TABLET 5 MG PO (20:36)
--- NOTE | 2018-07-24 21:43 | PC.NURSE ---
Very proactive with ambulation and activities to strengthen mobility
[2018-07-25 03:46] VITALS: BP 91/36; PULSE 62; RESP 14; TEMP 36.6; O2SAT 95
[2018-07-25 03:54] VITALS: O2SAT 95
[2018-07-25] MEDS: chlordiazePOXIDE 25 MG CAPSULE PO (05:58)
--- NOTE | 2018-07-25 06:56 | PC.NURSE ---
NOC Shift: Uneventful night, pt slept well through shift only to wake for assessment, and bathroom. Denies pain, discomfort. Wakes alittle disoriented, but clears quickly. Very pleasant, and appropriate. Hopes to go home today. VSS.
[2018-07-25 07:00] VITALS: BP 95/53; PULSE 60; RESP 18; TEMP 36.9; O2SAT 97
[2018-07-25] MEDS: Fluticasone Furoate-Vilanterol [Breo Ellipta] 1 EACH INHALATION (08:00)
[2018-07-25 08:03] VITALS: PULSE 60; RESP 16; O2SAT 97
[2018-07-25 08:15] VITALS: O2SAT 95
--- NOTE | 2018-07-25 09:18 | P.DS_ITS ---
History of Present Illness Date Patient Seen: 07/25/18 Time Patient Seen: 09:13 Chief complaint: Seizure, etoh withdrawl Narrative: Patient admitted last night through the emergency room. History is from the chart and from patient's male partner this morning. Approximately 5:00 a.m. last night patient went to the bathroom at her house that she was nauseated to throw up. Male partner her throwing up and then her but reactant in bathroom when in there and she was on the floor she shaking jittery upper lower extremities stopping unresponsive biting her tongue. No incontinence patient called 911 he relates that this seizure activity lasted perhaps up to 5 minutes. Paramedics came put her on a on a stretcher and he relates that she was verbal and commented that she did not want to go the hospital but she acquiesced. She apparently was given IV fluids unclear whether not she received medication underweight hospital. She was evaluated in the hospital and apparently had a 2nd seizure that was indeed witness by physician. Given 2 mg of IV lorazepam and patient has had no further seizures since she has been here far as we are aware. This morning patient is sedated from the lorazepam that is been given as according to the protocol. As stated this history now is from male partner. She has had alcohol issues for years apparently apparently has been in detox unit for week 2 different times. Has had no apparent seizures that he is aware of. Several years ago she stopped drinking for a week apparently had some hallucinations and some withdrawal symptoms at that time lasting about a week but resolved. He mention approximately 2 months ago he noticed that her eyes were turning yellow he mentioned this to her and she discussed upset with him. Additionally he she was having low red spots on her chest and back that appeared about the same time. Recently seen in the emergency room for epistaxis this required several up really obey evaluations was seen by ear nose and throat yesterday and was unable to find the actual bleeding site but presumed it was from her abnormal test. Patient has no other known history of bleeding disorder as far as we will wear. No history of melena or hematochezia as far as we are aware. Patient typically drink at least a bottle of wine daily it is believed that her last drink was on Monday in fact she did finish her last drink. In the past she drank vodka but has only been drinking wine buying the [place] that is in the refrigerator. No history of liver disorder. 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 {from Dr. Tran's H&P 07/14/18} Discharge Providers Date of admission: 07/13/18 19:43 Discharge Date: 07/25/18 Primary care physician: Nahum Oakley MD Consults: 07/13/18 20:12 Consult to Dietitian, Adult Routine Comment: Reason For Exam: alcoholism 07/14/18 10:07 Consult to Discharge Planning Routine Comment: etoh rehab 07/19/18 08:12 Consult to Physical Therapy Evaluate & Treat Comment: as able, might help with encephalopathy Physician Instructions: Evaluate and Treat 07/24/18 07:43 Consult to Discharge Planning Routine Comment: Home Health Services, PT/OT 07/24/18 10:41 Consult to Occupational Therapy Evaluate & Treat Comment: Physician Instructions: Evaluate and treat Discharge provider: Nahum Oakley MD Summary Discharge Diagnosis: 1. Alcohol withdrawal seizures 2. Alcoholic hepatitis 3. Epistaxis 4. Thrombocytopenia 5. Coagulopathy due to alcoholic hepatitis 6. Metabolic encephalopathy due to alcohol withdrawal 6. Asthma 7. Depression 8. Alcoholism Hospital Course: Patient was admitted via the ED after sustaining a seizure at home. She was found to be in probable alcohol withdrawal as well as evidence of alcoholic hepatitis. She was treated per usual see what protocol with large doses of benzodiazepine for her withdrawal. She had no further evidence of seizure activity during hospitalization Patient did have significant alcoholic hepatitis with elevated LFTs significantly elevated bilirubin and abnormal protime. Her score was high enough that she was felt to benefit from corticosteroids. These were initiated intravenously then switched to oral eventually. She had improvement in her bilirubin throughout the course of her hospitalization. It was still not normal at time of discharge but continued to improve. She will continue a 28 day course of corticosteroids as an outpatient Patient had thrombocytopenia which resulted in some epistaxis as an outpatient prior to her seizures. As she was appropriately treated for her alcohol related issues as above her platelet count improved although had not returned to normal or anything close to a by the time of discharge. She had no further evidence of bleeding however. Patient did have a coagulopathy thought to be secondary to her alcoholic hepatitis. She was administered vitamin K and had slight improvement in her protime. This will need to be re-evaluated as an outpatient as well Patient had long discussions with myself and care management staff regarding her alcoholism and treatment options for same. She is not in a position to be an inpatient treatment program at this time and really not in a position given her overall weakness etc to be even appropriate for intensive outpatient treatment the certainly needs to not drink and utilizing other resources such as [facility] certainly makes sense and patient seems to be in agreement with that at this time anyway. Patient was globally weak very unsteady on her feet initially would improve r apidly during latter part of her hospitalization. She was up walking with a walker without a lot of difficulty. It was felt as though she will rapidly improve in the home setting and home health services were set up for her she will go home with a walker and have support from her family etc. Patient will continue on the oral methylprednisolone as indicated above as well as low-dose chlordiazepoxide upon discharge with plans to taper that down to 0 as an outpatient. Patient's asthma was not an issue during this hospitalization Status at Discharge Cognitive/behavioral status at discharge: at baseline, oriented Functional status at discharge: uses cane/walker Overall status at discharge: patient is progressing back to baseline Time Spent with Patient Greater than 30 minutes Exam Vital Signs (past 8 hours): - 07/25/18 03:46 07/25/18 03:54 07/25/18 07:00 Temperature 97.9 F 98.4 F Pulse Rate 62 60 Respiratory Rate 14 18 Blood Pressure 91/36 L 95/53 L Pulse Oximetry 95 95 97 07/25/18 08:03 07/25/18 08:15 Temperature Pulse Rate 60 Respiratory Rate 16 Blood Pressure Pulse Oximetry 97 95 Oxygen Delivery Method Room Air Oxygen Flow Rate 0 Narrative Exam Narrative: HEENT- normocephalic atraumatic, sclerae remain anicteric Neck-no lymphadenopathy no bruits Lungs-clear anteriorly and posteriorly no wheezes no crackles good breath sounds Heart-regular rate and rhythm, no murmur, rub, or gallop. normal S1-S2 Abdomen-positive bowel tones, soft, nontender, nondistended, no hepatosplenomegaly, no masses palpable Neuro-normal to screening exam, gait not tested Extremities-no cyanosis clubbing or edema Objective Labs Result Diagrams: 07/24/18 04:43 07/24/18 04:43 Discharge Plan Discharge Plan Patient Disposition: Home Health Service Discharge Med Rec/Prescriptions Prescriptions: New chlordiazepoxide HCl 25 mg Capsule 25 mg PO Q8HR Qty: 30 RF: 0 methylprednisolone 8 mg tablet See Rx Instructions .ROUTE .COMPLEX Qty: 40 RF: 0 walker misc .ROUTE .MEDSUPPLY Qty: 1 RF: 0 Continued albuterol sulfate [Ventolin HFA] 90 mcg/actuation HFA aerosol inhaler 2 inhalation INHALATION Q4HP PRN (Reason: shortness of breath or wheezing) Qty: 200 RF: 0 loratadine [Claritin] 10 mg tablet 10 mg PO DAILY RF: 0 fluticasone furoate-vilanterol [Breo Ellipta] 200-25 mcg/dose blister with device 1 inhalation INHALATION DAILY Qty: 28 RF: 11 fluticasone propionate 50 mcg/actuation spray,suspension 1 spray Intranasal DIRECTED RF: 0 Follow up/Referrals: Nahum Oakley MD [Primary Care Provider] - 2 Weeks Provider Discharge Instructions Diet: Diet as Tolerated Diet comment: DO NOT DRINK Activity: as per PT/OT Discharge Data Primary Care Provider: Nahum Oakley Attending Provider: Nahum Oakley Admit Date/Time: 07/13/18 19:43
--- NOTE | 2018-07-25 09:46 | PT.IPTN ---
Current Diagnoses Alcohol dependence with withdrawal, unspecified (07/13/18) Physical Therapy Treatment Note M2 PT-IP Current Condition Start: 07/19/18 11:19 Freq: NEEDED Status: Active Protocol: Document 07/19/18 10:35 HH (Rec: 07/19/18 11:42 HH [id number]) Physical Therapy Current Condition Current Condition Evaluation Date 07/19/18 Treatment Diagnosis seizures, s/p fall, metabolic encephapathy, generalized weakness Onset Date 07/13/18 Weight Bearing Status Weight Bearing Status Weight Bear as Tolerated M3 PT-IP Subjective Start: 07/19/18 11:19 Freq: NEEDED Status: Active Protocol: Document 07/25/18 08:52 LJ (Rec: 07/25/18 09:46 LJ [id number]) Subjective Physical Therapy Visit Type Type Treatment Note Visit Start Time 08:52 Visit Stop Time 09:19 Total Visit Minutes 27 Number of DESIGN [facility] CONSULTANT Visits 3 Physical Therapy Visit Comments Patient Comments Pt agreeable to do therapy. Very excited that she is going home today. M4 PT-IP Mobility and Gait Start: 07/19/18 11:19 Freq: NEEDED Status: Active Protocol: Document 07/25/18 08:52 LJ (Rec: 07/25/18 09:46 LJ [id number]) PT-Transfer Assessment Sit to and From Stand Sit to and from Stand Contact Guard Assistance 1 Person Assistance Use of Upper Extremities Equipment Transfer Assistive Device Gait Belt Front Wheeled Walker Orthotic/Prosthetic Devices or Brace: No Transfers Transfer Destination Bed Transfer Ability Level of Assist Contact Guard Assistance 1 Person Assistance Use of Upper Extremities Comments Mobility Comments Pt still requiring verbal cuing for safe transfers. Able to transfer with SBA and verbal cuing for hand placement and body positioning . Gait Assessment Gait Gait Assistance Required: Contact Guard Assist 1 Person Assist Distance (Feet) 300 Able to Maintain Weight Bearing Status Yes During Gait Assistive Devices Assistive Device Gait Belt Front Wheeled Walker Gait Deviations General Gait Pattern Ataxic Decreased Stride Length Decreased Feet Clearance Narrow Based Gait Factors Limiting Gait Function Factors Limiting Gait Function Decreased Activity Tolerance Decreased Strength Incoordination Poor Balance Comments Gait Comments Pt requiring cues for proper body positioning when using FWW. Somewhat impulsive with ambulation and has tendancy to push FWW too far ahead of her and lean into it. Able to correct with cuing but then goes right back to poor form. Encouraged to slow down and look forward. Stair Climbing Assessment Evaluation Level of Assist On Stairs Contact Guard Assistance 1 Person Assistance Devices Stair Climbing Assistive Devices Left Railing Right Railing Technique/Endurance Stair Climbing Direction Ascend and Descend Stair Climbing Technique Step to Step Number of Steps Climbed 5 Query Text: Stair Climbing Set # Repetitions (reps) 2 Comments Stair Climbing Comments Pt held onto railing with both hands going up and down stairs. Encouraged to go slowly and use step to pattern . Had confusion as to what to do with FWW at initial attempt to climb stairs. Advised to leave the FWW at the base of the stairs and will carry it up for her. Has 2 steps to get into house. M5 PT-IP Objective Assessments Start: 07/19/18 11:19 Freq: NEEDED Status: Active Protocol: Document 07/19/18 10:35 HH (Rec: 07/19/18 11:42 [id number]) Orientation Orientation/Cognition Level of Alertness Lethargic Orientation Name Age Birthday Month Year Situation Language Function Ability Garbled Speech Safety Awareness Decreased Safety Awareness Memory Description Short Term Impaired Fpc Impaired Comments Pt is awake and able to follow command. She is able to answer with slurred speech but overall remain sensual. Gross Range of Motion Upper Extremity ROM Assessment Bilaterally Impaired Impairments only able to reach her forehead Lower Extremity ROM Assessment Bilaterally Impaired Strength Upper Extremity Strength Assessment Bilaterally Impaired Lower Extremity Strength Assessment Bilaterally Impaired Comments Strength Comments grossly 3/5 for B UEs and LEs Coordination Assessment Gross Coordination Gross Coordination Impaired Assessment Finger to Nose Test Moderate Impairment Pronation/Supination Test Moderate Impairment Muscle Tone Comments Muscle Tone Comments Pt's skin appears very pale and yellow. M6 PT-IP Treatment Start: 07/19/18 11:19 Freq: NEEDED Status: Active Protocol: Document 07/25/18 08:52 LJ (Rec: 07/25/18 09:46 LJ [id number]) Physical Therapy Treatment Education Education Provided Safety Other Treatments Other Treatment Performed mini squats x10 at edge of bed with handhold M7 PT-IP Assessment and Plan Start: 07/19/18 11:19 Freq: NEEDED Status: Active Protocol: Document 07/25/18 08:52 LJ (Rec: 07/25/18 09:46 LJ [id number]) PT Summary Assessment and Plan Summary Impairments ROM Strength Balance Cognition Bed Mobility Transfers Gait Activity Tolerance Assessment Summary Pt improving with following commands with quicker response time. Pt required CGA with ambulation needing less assist , pt able to stand up straight , make safer turns and increased gait distance. Pt still unsteady with gait and requiring cues to slow down, keep walker closer, and lift her head. Goals Bed Mobility Goal Contact Guard Assistance Transfer Goal Contact Guard Assistance Front Wheeled Walker Gait Goal Contact Guard Assistance Front Wheel Walker Gait Distance 100 Other Goals to clear 2 steps without railings SBA/ pt has no steps into house through garage ( needing to confirm with Mukul) Days to Meet Goals 10 Recommendations To Nursing Amount of Assist Needed 1 Person Assist Discharge Recommendations PT Discharge Recommendations SNF Rehab Other Discharge Recommendations pt will D/C home later today as per nursing. Equipment Needed for Home Before obtaining from [facility] Discharge
--- NOTE | 2018-07-25 10:30 | OT.IP.TRT ---
Current Diagnoses Alcohol dependence with withdrawal, unspecified (07/13/18) Occupational Therapy Treatment Note M3 OT- IP Subjective and Pain Start: 07/24/18 15:21 Freq: Status: Active Protocol: Document 07/25/18 10:30 PJM (Rec: 07/25/18 16:01 PJ [id number]) OT- Subjective Occupational Therapy Visit Type Type Treatment Note Visit Start Time 09:40 Visit Stop Time 10:30 Total Visit Minutes 58 Notes Pt also seen [id number] for family education with pt's S.O . regarding pt's current cognitive status and need for supervision/assistance with basic self care for total of 58 min. Occupational Therapy Visit Comments Patient Comments I am so glad I get to go home today. Patient/Caregiver Goals to leave before lunch time, get stronger and more independent at home OT Pain Assessment Pain When Pain Assessed After Treatment Pain Present Pain Present Denied Pain M4 OT- IP ADL's Start: 07/24/18 15:21 Freq: Status: Active Protocol: Document 07/25/18 10:30 PJM (Rec: 07/25/18 16:01 PJ [id number]) OT DFS-[id number]-Juvwwxr General Evaluation Self-Feeding Ability Independent Comments OT Self-Feeding Comments poor appetite this AM, I am to excited about going home to eat. OT ADL-Grooming General Evaluation Grooming Ability Standby Assistance Areas Needing Assistance Face Washing Comments OT Grooming Comments pt needs mod cues for FWW placement at sink and to lean on counter for stability OT ADL-Oral Care General Eval Oral Care Ability Minimal Assistance Comments Oral Care Comments Pt confused about sequence of oral care set up, attempting to but paste on brush without removing cap and poor monitoring of amount of toothpaste being used. Poor scanning of environment noted with pt not seeing cup to R of midline on counter. OT ADL-Dressing General Eval Upper Body Dressing Ability Standby Assistance Lower Body Dressing Ability Standby Assistance Areas Needing Assistance Pull-Over Shirt Underpants/Brief Pants/Shorts Socks Shoes Comments OT Dressing Comments Pt needs min verbal cues to notice dropped sock to R of midline and then reminders to stand with FWW to pull pants over hips.(Pt attempting to pull pants on over hips while seated EOB and did not initiate standing.) OT ADL-Toileting Comments OT Toileting Comments did not occur this session OT ADL-Bathing Bathing Type Bathing Type Shower General Evaluation Bathing Ability Minimal Assistance Devices Bathing Equipment Shower Chair without Arms Grab Bars Comments OT Bathing Comments Pt seated for 80% of shower with continuous use of grab bar in shower for stability in standing. Pt needing mod verbal cues to problem solve unfamiliar soap dispenser and not aware when soap not being dispensed.Provided education to pt's s.o. re need for shower chair for safety at home. He will buy one or borrow from [employer]. M6 OT- IP Functional Cognition Start: 07/24/18 15:21 Freq: Status: Active Protocol: Document 07/25/18 10:30 PJM (Rec: 07/25/18 16:01 [email or web address] [id number]) Cognitive Factors Limiting Selfcare Function Cognitive Ability Level of Alertness Alert Attention Span Ability Capable of Focused Attention Capable of Sustained Attention Ability to Follow Commands Able to Follow One Step Commands Memory Description Immediate Impaired Short Term Impaired Safety Awareness Decreased Recall of Precautions Underestimates Need for Assistance Problem Solving Ability Unable to Identify Errors Needs Assist to Identify Solutions Executive Function Ability Unable to Organize Plans Unable to Remember Details Abstract Thinking Ability Unable to Draw Logical Conclusions Cognitive Comments Cognitive Assessment Comments Pt making sequencing errors during simple self care tasks as noted above with decreased attention to detail and decreased problem solving noted.Pt remains impulsive. OT- Vision and Hearing OT- Vision Assessment Visual Spacial Neglect Right Vision Assessment Comments Pt appears to have R visual spatial neglect during self care tasks x 2 and when walking in galo with FWW to shower room. M7 OT- IP Mobility and Balance Start: 07/24/18 15:21 Freq: Status: Active Protocol: Document 07/25/18 10:30 PJM (Rec: 07/25/18 16:01 [email or web address] [id number]) OT- Bed Mobility Assessment Rolling Type of Rolling Roll to Left Level of Assistance Independent Supine to Sit Supine to Sit Assist Independent Scooting Scooting to Edge of Bed Standby Assistance OT-Transfer Assessment Sit to and From Stand Sit to and from Stand Contact Guard Assistance 1 Person Assistance Transfers Transfer Ability 1 Person Assistance Technique Transfer Destination Chair Shower Stall Devices Transfer Assistive Devices Gait Belt Front Wheeled Walker Comments Mobility Comments Pt remains impulsive, trying to stand before FWW in place. OT- Gait Assessment Gait Gait Assistance Required: Contact Guard Assist Distance (Feet) 150 Assistive Devices Assistive Device Gait Belt Front Wheeled Walker Comments Gait Ability Comments pt walked to/from shower room, pt bumped into cart on R side with FWW when walking in galo OT- Balance Assessment Sitting Balance and Reactions Static Sitting Balance Ability Good Dynamic Sitting Balance Ability Fair Standing Balance and Reactions Static Standing Balance Ability Fair Dynamic Standing Balance Ability Fair Comments Other Balance Tests/Deviations/Treatment during standing shower and : lower body clothing management M9 OT- IP Assessment and Plan Start: 07/24/18 15:21 Freq: Status: Active Protocol: Document 07/25/18 10:30 PJM (Rec: 07/25/18 16:01 PJM [id number]) OT Summary Assessment and Plan Potential Rehabilitation Potential Good Summary Progress Towards Goals Progressing Toward Goals Assessment Summary Pt continues to have significant cognitive deficits requiring min to mod verbal cues to sequence and problem solve simple self care tasks such as oral care, dressing, showering. Pt requiring more repetition of information today, possible due to anxiety about discharge, e.g. asking therapist 4x during session about how she would get FWW for d/c today. Provided education to pt's s.o. re: need for 24 hr supervision/ assist for safety at present due to cognitive deficits and impulsivity. Pt/s.o. states pt's friend will stay with her while s.o. at work. Strongly recommend HH OT at d/c to increase independence, safety with basic self care and progression to IADLS. S.O. educated that pt should not drive at present due to cognitive deficits. Frequency of Treatment Frequency Of Treatment Discharge Discharge Recommendations OT Discharge Recommendations Home with 24/7 Assist Home Health Home Equipment Needs shower seat
--- NOTE | 2018-07-25 11:28 | CM.DPC ---
Addendum entered by BRETT Guo 07/25/18 13:39: ADD: signed F2F and provided to Care Management and SW called Kay at [facility] and Kay will review and confirm they can accept pt or not. BF Original Note: DCP Discharge Home with HH Per MD, pt is medically stable to d/c home today with HH and follow up appointment in 10 days. Per RN, pt confirmed that she has a list of chemical dependency resources bedside to follow up with after d/c and confirms she is not interested in treatment to be set up for her at d/c. SW met bedside with pt and boyfriend and explained role and discussed d/c home with HH recommendation. SW discussed HH services and frequency and provided the HH Choice List and pt does not have a preference and is interested in HH RN/PT/OT at this time. BRAD Raines kindly contacted [facility] and faxed clinicals to review and faxed F2F to Dr. Oakley office for MD signature. Plan: SW to follow for [facility] confirmation they can accept pt to service and returned signed F2F from to finalize HH services. BRETT Guo
[2018-07-25] MEDS: PHYTONADIONE (VIT K1) 5 MG TABLET 10 MG PO (11:44)
[2018-07-25] MEDS: methylPREDNISolone 4 MG TABLET 32 MG PO (11:44)
[2018-07-25] MEDS: POTASSIUM CHLORIDE 20 MEQ/15 ML UDC PO (11:44)
[2018-07-25] MEDS: FOLIC ACID 1 MG TABLET PO (11:45)
[2018-07-25] MEDS: MAGNESIUM CHLORIDE 64 MG TABLET 128 MG PO (11:45)
[2018-07-25] MEDS: MULTIVITAMIN 1 TABLET 1 TAB PO (11:45)
[2018-07-25] MEDS: LORATADINE 10 MG TABLET PO (11:45)
--- NOTE | 2018-07-25 12:08 | PC.NURSE ---
discharge instructions and education on meds and fall safety reviewed with and pt. midline IV dc'd with cath intact.
--- NOTE | 2018-07-25 12:44 | PT.IPTN ---
Current Diagnoses Alcohol dependence with withdrawal, unspecified (07/13/18) Physical Therapy Treatment Note M2 PT-IP Current Condition Start: 07/19/18 11:19 Freq: NEEDED Status: Discharge Protocol: Document 07/19/18 10:35 HH (Rec: 07/19/18 11:42 HH [id number]) Physical Therapy Current Condition Current Condition Evaluation Date 07/19/18 Treatment Diagnosis seizures, s/p fall, metabolic encephapathy, generalized weakness Onset Date 07/13/18 Weight Bearing Status Weight Bearing Status Weight Bear as Tolerated M3 PT-IP Subjective Start: 07/19/18 11:19 Freq: NEEDED Status: Discharge Protocol: Document 07/25/18 12:36 SA (Rec: 07/25/18 12:44 SA [id number]) Subjective Physical Therapy Visit Type Type Treatment Note Visit Start Time 11:05 Visit Stop Time 11:28 Total Visit Minutes 23 Number of EMERGENCY MANAGEMENT CONSULTANT Visits 4 Physical Therapy Visit Comments Patient Comments Pt eager to get FWW, eager to go home. Boyfriend present for session. Patient Goals To go home M4 PT-IP Mobility and Gait Start: 07/19/18 11:19 Freq: NEEDED Status: Discharge Protocol: Document 07/25/18 12:36 SA (Rec: 07/25/18 12:44 SA [id number]) PT-Transfer Assessment Sit to and From Stand Sit to and from Stand Contact Guard Assistance 1 Person Assistance Use of Upper Extremities Equipment Transfer Assistive Device Gait Belt Front Wheeled Walker Orthotic/Prosthetic Devices or Brace: No Transfers Transfer Destination Chair Transfer Ability Level of Assist Contact Guard Assistance 1 Person Assistance Use of Upper Extremities Comments Mobility Comments FWW issued to patient, caregiver training conducted with boyfriend for stairs and safe transfers. Gait Assessment Gait Gait Assistance Required: Contact Guard Assist 1 Person Assist Distance (Feet) 100 Able to Maintain Weight Bearing Status Yes During Gait Assistive Devices Assistive Device Gait Belt Front Wheeled Walker Gait Deviations General Gait Pattern Ataxic Decreased Stride Length Decreased Feet Clearance Narrow Based Gait Factors Limiting Gait Function Factors Limiting Gait Function Decreased Activity Tolerance Decreased Strength Incoordination Poor Balance Comments Gait Comments Pt continues to need cues for safe use of FWW, staying close to AD and movement planning. Stair Climbing Assessment Evaluation Level of Assist On Stairs Contact Guard Assistance 1 Person Assistance Devices Stair Climbing Assistive Devices Front Wheel Walker Technique/Endurance Stair Climbing Direction Ascend and Descend Stair Climbing Technique Step to Step Number of Steps Climbed 1 Query Text: Stair Climbing Set # Repetitions (reps) 4 Comments Stair Climbing Comments Pt needs caregiver present with stairs, education conducted with caregiver for FWW positioning, use of gait belt and safety. M5 PT-IP Objective Assessments Start: 07/19/18 11:19 Freq: NEEDED Status: Discharge Protocol: Document 07/19/18 10:35 HH (Rec: 07/19/18 11:42 HH [id number]) Orientation Orientation/Cognition Level of Alertness Lethargic Orientation Name Age Birthday Month Year Situation Language Function Ability Garbled Speech Safety Awareness Decreased Safety Awareness Memory Description Short Term Impaired [facility] Impaired Comments Pt is awake and able to follow command. She is able to answer with slurred speech but overall remain sensual. Gross Range of Motion Upper Extremity ROM Assessment Bilaterally Impaired Impairments only able to reach her forehead Lower Extremity ROM Assessment Bilaterally Impaired Strength Upper Extremity Strength Assessment Bilaterally Impaired Lower Extremity Strength Assessment Bilaterally Impaired Comments Strength Comments grossly 3/5 for B UEs and LEs Coordination Assessment Gross Coordination Gross Coordination Impaired Assessment Finger to Nose Test Moderate Impairment Pronation/Supination Test Moderate Impairment Muscle Tone Comments Muscle Tone Comments Pt's skin appears very pale and yellow. M6 PT-IP Treatment Start: 07/19/18 11:19 Freq: NEEDED Status: Discharge Protocol: Document 07/25/18 12:36 SA (Rec: 07/25/18 12:44 [id number]) Physical Therapy Treatment Education Education Provided Safety Other Treatments Other Treatment Performed Pt seen 2x this AM as per [facility] request for FWW dispensing and caregiver training prior to d /c. M7 PT-IP Assessment and Plan Start: 07/19/18 11:19 Freq: NEEDED Status: Discharge Protocol: Document 07/25/18 12:36 SA (Rec: 07/25/18 12:44 [id number]) PT Summary Assessment and Plan Summary Impairments ROM Strength Balance Cognition Bed Mobility Transfers Gait Activity Tolerance Assessment Summary Pt with difficulty planning movements and sequencing, needs caregiver present for gait with FWW and stairs. Frequency of Treatment Frequency Of Treatment Twice a Day Recommendations To Nursing Amount of Assist Needed 1 Person Assist Discharge Recommendations Other Discharge Recommendations pt will D/C home later today as per nursing. Caregiver training with pt's boyfriend prior to d/c
== END 2018-07-25 11:45 | disposition home health service (06) | DRG 775 ==
LOC: ED 19:17 → AC 19:44 → ICU 07-14 07:37
PROVIDERS: Family Medicine; Admitting Provider Family Medicine; Emergency Provider Emergency Medicine; PCP Internal Medicine; Visit Provider Internal Medicine
DX: F10.239 Alcohol dependence with withdrawal, unspecified (principal); G40.89 Other seizures; K70.30 Alcoholic cirrhosis of liver without ascites; Y90.1 Blood alcohol level of 20-39 mg/100 ml; D69.59 Other secondary thrombocytopenia; E83.42 Hypomagnesemia; F31.9 Bipolar disorder, unspecified; K70.10 Alcoholic hepatitis without ascites; E87.6 Hypokalemia; D68.4 Acquired coagulation factor deficiency; R04.0 Epistaxis
CPT/HCPCS: 36415; 36591; 36592; 70450; 74177; 80048; 80053; 80076; 80305; 80320; 81001; 81025; 82140; 82962; 83690; 83735; 84146; 85025; 85610; 86803; 87340; 87797; 93005; 93010; 94640; 94760; 94762; 96361; 96365; 96375; 97110; 97116; 97127; 97163; 97166; 97530; 97535; 99223; 99233; 99238; 99284; 99285; 99406; J1200; J1630; J1642; J2060; J2920; J3360; J3475; Q9967

== ENCOUNTER → 2018-08-09 11:34 | Outpatient (CLI) | payer OTHER, MEDICAID, SELFPAY ==
[2018-07-13 20:32] VITALS: BMI 26.5
[2018-08-09 12:18] LABS: Add Manual Diff / Slide Review NO; Basophils Absolute Auto 0 /uL (0-100); Basophils Percent Auto 0.4 % (0-2); Eosinophils Absolute Auto 400 /uL (0-450); Eosinophils Percent Auto 4.9 % (2-4); Hematocrit 33.3 % (36-46); Hemoglobin 11.2 g/dL (12.0-16.0); Lymphocytes Absolute Auto 800 /uL (1100-4500); Mean Corpuscular HGB Conc 33.7 % (30-36); Mean Corpuscular Hemoglobin 36.2 PG (26-34); Mean Corpuscular Volume 107.2 fL (80-100); Monocytes Absolute Auto 600 /uL (0-900); Monocytes Percent Auto 7.5 % (3-14); Neutrophils Absolute Auto 6200 /uL (1500-7000); Neutrophils Percent Auto 77.2 % (50-75); Platelet Count 64 X10^3/uL (150-400); Red Blood Cell Count 3.11 X10^6/uL (4.0-5.2); Red Cell Distribution Width 14.5 % (11.6-14.8); White Blood Cell Count 8.1 X10^3/uL (4.5-11.0)
[2018-08-09 12:23] LABS: INR 1.6 (0.9-1.3); Prothrombin Time 18.5 SECONDS (10.1-12.7)
[2018-08-09 12:30] LABS: Alanine Aminotransferase 118 IU/L (9-52); Albumin 3.3 g/dL (3.5-5.0); Albumin Globulin Ratio 0.9 (1.0-2.8); Alkaline Phosphatase 389 U/L (38-126); Aspartate Aminotransferase 88 IU/L (14-36); Bilirubin Conjugated 0.1 md/dL (0.0-0.3); Bilirubin Total 4.4 mg/dL (0.2-1.3); Bilirubin Unconjugated 2.4 mg/dL (0.0-1.1); Blood Urea Nitrogen 9 mg/dL (7-17); Calcium 8.7 mg/dL (8.4-10.2); Carbon Dioxide 31 mmol/L (22-32); Chloride 91 mmol/L (98-107); Estimated Glomerular Filt Rate > 60.0 mL/min (>60); Globulin 3.5 g/dL (1.7-4.1); Glucose 459 mg/dL (70-100); HEMOLYSIS < 15 (0-50); Potassium 4.3 mmol/L (3.4-5.1); Sodium 129 mmol/L (137-145); Total Protein 6.8 g/dL (6.3-8.2)
== END ==
PROVIDERS: PCP Internal Medicine; Visit Provider Internal Medicine
DX: D68.9 Coagulation defect, unspecified (principal); D69.6 Thrombocytopenia, unspecified; K70.10 Alcoholic hepatitis without ascites
CPT/HCPCS: 36415; 80048; 80076; 85025; 85610

== ENCOUNTER 2018-08-14 18:58 | Observation (INO) | payer OTHER, MEDICAID, SELFPAY ==
[2018-08-14 19:02] VITALS: BP 115/64; PULSE 92; RESP 14; TEMP 36.5; O2SAT 100
--- NOTE | 2018-08-14 19:12 | ED.WEAKNESS ---
HPI - Weakness General Chief complaint: Weakness Stated complaint: WEAK, CHILLS, SENT FOR SEPTIC UTI Time Seen by Provider: 08/14/18 19:11 Source: patient Mode of arrival: ambulatory Limitations: no limitations History of Present Illness HPI Narrative: Patient is a 42-year-old female with history of alcoholism she was recently admitted in July for alcohol withdrawal seizures and thrombocytopenia and epistaxis. At that time she was also found to have alcoholic hepatitis. She states that she has not had a drink since July 11 and that she has remained sober and going to meeting. The last 2 days she has felt weak and chilled despite it being quite warm outside. She has home health care who suggested she come to the emergency department for further evaluation could she did not look well. She is afebrile. The rest overall appears well. Slightly drawn just. She states she has no headache no neck pain. She has had some urinary incontinence which is abnormal for her but she really has no back pain, leg weakness numbness or tingling. She has had some right upper quadrant pain ongoing for the last 2 weeks not any worse. History of cholecystectomy and recent alcohol hepatitis. She has had regular bowel movements, overall no abdominal pain. She has had a little bit of a cough but no real shortness of breath no chest tightness or heart palpitations. Related Data Home Medications Medication Instructions Recorded Confirmed loratadine 10 mg tablet 10 mg PO DAILY 10/06/17 08/14/18 acidophilus-pectin, citrus 2 cap PO DAILY 08/14/18 08/14/18 [Acidophilus Probiotic] methylprednisolone 4 mg PO DAILY 08/14/18 08/14/18 multivit with min-folic acid 1 tab PO DAILY 08/14/18 08/14/18 [Adult Multivitamin Gummies] omeprazole 40 mg PO DAILY 08/14/18 08/14/18 Previous Rx's Medication Instructions Recorded albuterol sulfate HFA 90 2 inhalation INHALATION Q4HP PRN 10/25/17 mcg/actuation aerosol inhaler #200 inhalation fluticasone furoate 200 1 inhalation INHALATION DAILY #28 01/29/18 mcg-vilanterol 25 mcg/dose each inhalation powder walker #1 each 07/25/18 glipizide ER 5 mg tablet, extended 5 mg PO DAILY #30 tab 08/09/18 release 24 hr trazodone 50 mg tablet 50 mg PO BEDTIME #30 tab 08/09/18 Allergies Allergy/AdvReac Type Severity Reaction Status Date / Time aspirin AdvReac Verified 08/14/18 19:07 Review of Systems Review of Systems ROS Unobtainable: All systems reviewed & are unremarkable except as noted in HPI and below Constitutional Reports body ache(s), Reports chills and Reports weakness Eyes Denies change in vision, Denies eye discharge, Denies irritation and Denies loss of vision ENT Ears, Nose, Mouth, and Throat: Denies change in voice, Denies neck pain and Denies sore throat Cardiovascular Denies dyspnea Respiratory Reports as per HPI, Reports cough and Denies dyspnea Genitourinary Denies hematuria, Denies flank pain, Denies urinary incontinence and Denies urinary urgency Musculoskeletal Denies neck pain Integumentary/Breasts Denies pruritus, Denies erythema, Denies rash and Denies wounds Neurologic Denies confusion, Denies loss of vision and Reports weakness Psychiatric Denies anxiety, Denies confusion, Denies depression, Denies homicidal ideation and Denies suicidal ideation [facility] Medical History Asthma (Chronic) Chronic migraine (Chronic) Major depressive disorder, recurrent, moderate (Chronic 12/31/10) Gastro-esophageal reflux (Chronic 12/31/10) Allergic rhinitis (Chronic) Asthma (Chronic) Bipolar disorder (Chronic) Duodenal ulcer (Chronic 09/2009) Surgical History Status post endoscopy (Resolved 09/2009) Family History Other Alcoholism Asthma Social History household members: spouse Smoking Status: Current some day smoker alcohol intake: current Family History Other Alcoholism Asthma Social History household members: spouse Smoking Status: Current some day smoker alcohol intake: former Exam Initial Vital Signs Initial Vital Signs: Vital Signs Temperature 97.7 F 08/14/18 19:02 Pulse Rate 92 H 08/14/18 19:02 Respiratory Rate 14 08/14/18 19:02 Blood Pressure 115/64 08/14/18 19:02 Pulse Oximetry 100 08/14/18 19:02 GENERAL: Alert and oriented slightly jaundiced well-appearing female anxious HEENT: Head atraumatic,EOMI, pupils reactive, face symmetric, neck is supple no meningeal signs CARDIOVASCULAR: Regular rate and rhythm without murmurs, rubs or gallops. RESPIRATORY: Breath sounds equal bilaterally, no wheezes rales or rhonchi. ABDOMEN: Soft, nondistended, minimal right upper quadrant tenderness no Campos sign no guarding no rebound : No CVA tenderness EXTREMITIES: Normal range of motion, no clubbing or edema. Neurovascularly intact NEUROLOGICAL: Alert and oriented x4.Normal gait and speech. Cranial nerves II through XII grossly intact. SKIN: Warm, dry, no laceration, no petechiae, no rashes or lesions. Course Orders Ordered: ED Orders 08/14/18 19:23 XR chest 1V Stat Blood Culture Stat Complete Blood Count AUTO DIFF Stat Comprehensive Metabolic Panel Stat Lactate (Lactic Acid) Stat Partial Thromboplastin Time Stat Procalcitonin Stat Prothrombin Time INR Stat 08/14/18 20:45 US abdomen limited Stat 08/14/18 22:30 MRSA PCR Urgent Acetaminophen (Tylenol) 650 mg PO Q6HR PRN PRN Reason: As Needed for Fever/Mild Pain Piperacillin/Tazobactam/Dextrose (Zosyn) 3.375 gm in 50 mls @ 100 mls/hr IV Q6HR [facility] Sodium Chloride (Normal Saline 0.9%) 1,000 mls @ 125 mls/hr IV CONT [facility] Last Admin: 08/15/18 00:26 Dose: 125 mls/hr Ceftriaxone Sodium/Dextrose (Rocephin) 2 gm in 50 mls @ 100 mls/hr IV Q8HR [facility] Discontinued Medications Sodium Chloride (Normal Saline 0.9%) 2,364 mls @ 788 mls/hr 30 ml/kg infuse over 3 hr (2364 ml) IV NOW ONE Stop: 08/14/18 23:07 Last Infusion: 08/14/18 22:01 Dose: 0 mls/hr Admin: 08/14/18 20:12 Dose: 788 mls/hr Vancomycin HCl 1,250 mg/ (Sodium Chloride) 250 mls @ 250 mls/hr IV NOW ONE Stop: 08/14/18 20:09 Last Infusion: 08/14/18 22:01 Dose: 0 mls/hr Admin: 08/14/18 21:09 Dose: 250 mls/hr Piperacillin/Tazobactam/Dextrose (Zosyn) 3.375 gm in 50 mls @ 100 mls/hr IV NOW ONE Stop: 08/14/18 20:39 Last Infusion: 08/14/18 21:09 Dose: 0 mls/hr Admin: 08/14/18 20:23 Dose: 100 mls/hr Ceftriaxone Sodium/Dextrose (Rocephin) 2 gm in 50 mls @ 100 mls/hr IV Q8HR [facility] Ceftriaxone Sodium/Dextrose (Rocephin) 2 gm in 50 mls @ 100 mls/hr IV NOW ONE Stop: 08/14/18 22:29 Last Infusion: 08/15/18 01:36 Dose: 200 mls/hr Admin: 08/15/18 00:26 Dose: 100 mls/hr Vital Signs - 8 hr 08/14/18 19:02 08/14/18 20:00 08/14/18 20:59 Temperature 97.7 F 97.7 F Pulse Rate 92 H 92 H 76 Respiratory Rate 14 14 19 Blood Pressure 115/64 115/64 Blood Pressure [Left Arm] 121/53 L Pulse Oximetry 100 100 97 08/14/18 21:30 08/14/18 21:53 Temperature 98.4 F Pulse Rate 70 74 Respiratory Rate 17 20 Blood Pressure 100/61 Blood Pressure [Left Arm] 118/69 Pulse Oximetry 96 93 MDM - Weakness Lab Data Attestation: I reviewed the patient's lab results. Result diagrams: 08/14/18 19:23 08/14/18 19:23 Lab Results 08/14/18 08/14/18 08/14/18 Range/Units 19:23 19:23 19:23 WBC 12.1 H (4.5-11.0) X10^3/uL RBC 2.91 L (4.0-5.2) X10^6/uL Hgb 10.6 L (12.0-16.0) g/dL Hct 31.1 L (36-46) % MCV 106.9 H (80-100) fL MCH 36.4 H (26-34) PG MCHC 34.0 (30-36) % RDW 14.4 (11.6-14.8) % Plt Count 60 L (150-400) X10^3/uL Neut % (Auto) 80.3 H (50-75) % Lymph % (Auto) 12.0 L (25-40) % [place] % (Auto) 6.9 (3-14) % Eos % (Auto) 0.6 L (2-4) % Baso % (Auto) 0.2 (0-2) % Neut # (Auto) 9700 H (5086-5678) /uL Lymph # (Auto) 1400 (0267-3082) /uL [place] # (Auto) 800 (0-900) /uL Eos # (Auto) 100 (0-450) /uL Baso # (Auto) 0 (0-100) /uL PT 23.0 H (10.1-12.7) SECONDS INR 2.0 H (0.9-1.3) APTT 36 D (26.4-36.2) SECONDS Sodium (137-145) mmol/L Potassium (3.4-5.1) mmol/L Chloride (98-107) mmol/L Carbon Dioxide (22-32) mmol/L BUN (7-17) mg/dL Creatinine (0.52-1.04) mg/dL Estimated GFR (>60) mL/min BUN/Creatinine Ratio (6-22) Glucose (70-100) mg/dL Lactate (0.7-2.1) mmol/L Calcium (8.4-10.2) mg/dL Total Bilirubin (0.2-1.3) mg/dL AST (14-36) IU/L ALT (9-52) IU/L Alkaline Phosphatase (38-126) U/L Total Protein (6.3-8.2) g/dL Albumin (3.5-5.0) g/dL Globulin (1.7-4.1) g/dL Albumin/Globulin Ratio (1.0-2.8) Lipase (23-300) U/L Procalcitonin 0.50 (<0.5) ng/mL Nasal Screen MRSA (PCR) (Negative) 08/14/18 08/14/18 08/14/18 Range/Units 19:23 19:23 21:55 WBC (4.5-11.0) X10^3/uL RBC (4.0-5.2) X10^6/uL Hgb (12.0-16.0) g/dL Hct (36-46) % MCV (80-100) fL MCH (26-34) PG MCHC (30-36) % RDW (11.6-14.8) % Plt Count (150-400) X10^3/uL Neut % (Auto) (50-75) % Lymph % (Auto) (25-40) % [place] % (Auto) (3-14) % Eos % (Auto) (2-4) % Baso % (Auto) (0-2) % Neut # (Auto) (9833-6198) /uL Lymph # (Auto) (1639-1010) /uL [place] # (Auto) (0-900) /uL Eos # (Auto) (0-450) /uL Baso # (Auto) (0-100) /uL PT (10.1-12.7) SECONDS INR (0.9-1.3) APTT (26.4-36.2) SECONDS Sodium 132 L (137-145) mmol/L Potassium 3.2 L (3.4-5.1) mmol/L Chloride 97 L (98-107) mmol/L Carbon Dioxide 24 (22-32) mmol/L BUN 8 (7-17) mg/dL Creatinine 0.40 L (0.52-1.04) mg/dL Estimated GFR > 60.0 (>60) mL/min BUN/Creatinine Ratio 20.0 (6-22) Glucose 288 H D (70-100) mg/dL Lactate 4.8 H* 2.3 H (0.7-2.1) mmol/L Calcium 8.4 (8.4-10.2) mg/dL Total Bilirubin 5.3 H (0.2-1.3) mg/dL AST 86 H (14-36) IU/L ALT 87 H (9-52) IU/L Alkaline Phosphatase 116 D (38-126) U/L Total Protein 6.4 (6.3-8.2) g/dL Albumin 3.0 L (3.5-5.0) g/dL Globulin 3.4 (1.7-4.1) g/dL Albumin/Globulin Ratio 0.9 L (1.0-2.8) Lipase (23-300) U/L Procalcitonin (<0.5) ng/mL Nasal Screen MRSA (PCR) (Negative) 08/14/18 08/14/18 Range/Units 22:30 Unknown WBC (4.5-11.0) X10^3/uL RBC (4.0-5.2) X10^6/uL Hgb (12.0-16.0) g/dL Hct (36-46) % MCV (80-100) fL MCH (26-34) PG MCHC (30-36) % RDW (11.6-14.8) % Plt Count (150-400) X10^3/uL Neut % (Auto) (50-75) % Lymph % (Auto) (25-40) % [place] % (Auto) (3-14) % Eos % (Auto) (2-4) % Baso % (Auto) (0-2) % Neut # (Auto) (3772-1629) /uL Lymph # (Auto) (2467-2976) /uL [place] # (Auto) (0-900) /uL Eos # (Auto) (0-450) /uL Baso # (Auto) (0-100) /uL PT (10.1-12.7) SECONDS INR (0.9-1.3) APTT (26.4-36.2) SECONDS Sodium (137-145) mmol/L Potassium (3.4-5.1) mmol/L Chloride (98-107) mmol/L Carbon Dioxide (22-32) mmol/L BUN (7-17) mg/dL Creatinine (0.52-1.04) mg/dL Estimated GFR (>60) mL/min BUN/Creatinine Ratio (6-22) Glucose (70-100) mg/dL Lactate (0.7-2.1) mmol/L Calcium (8.4-10.2) mg/dL Total Bilirubin (0.2-1.3) mg/dL AST (14-36) IU/L ALT (9-52) IU/L Alkaline Phosphatase (38-126) U/L Total Protein (6.3-8.2) g/dL Albumin (3.5-5.0) g/dL Globulin (1.7-4.1) g/dL Albumin/Globulin Ratio (1.0-2.8) Lipase 206 (23-300) U/L Procalcitonin (<0.5) ng/mL Nasal Screen MRSA (PCR) Negative for mrsa (Negative) Urine Dip Bedside Urine Glucose 1000 mg/dl Bedside Urine Bilirubin - Negative Bedside Urine Ketone - Negative Urine Specific [place] 1.015 Bedside Urine Occult Blood - Negative Bedside Urine pH 6.0 Bedside Urine Protein - Negative Bedside Urine Urobilinogen 1+ 2mg Bedside Urine Nitrite - Negative Bedside Urine Leukocytes - Negative Esterase MDM Narrative Medical decision making narrative: Patient has significantly elevated lactic acid of 4.8 elevated procalcitonin and a mild leukocytosis. Overall she is not in septic shock. Normal blood pressure normal heart rate. No real source of infection. Urine is clear x-ray is clear her abdomen is relatively soft I do not suspect spontaneous bacterial peritonitis she is not a candidate for a paracentesis at this time due to her low platelets and elevated INR, nonetheless I have treated her empirically with Rocephin. She has also been given Zosyn and vancomycin. She has no signs of meningitis. Discussed case with Dr. Tran salesperson hosiery. He agrees with treatment plan and antibiotics. Discharge Plan Departure Patient Disposition: Admitted As Inpatient Clinical Impression: Sepsis Qualifiers: Sepsis type: sepsis due to unspecified organism Qualified Code(s): A41.9 - Sepsis, unspecified organism Discharge Date/Time: 08/14/18 22:02 Interventions: ED Discharge Assessment Last Done: 08/14/18 22:00 Referrals: Nahum Oakley MD [Primary Care Provider] - Admit Date/Time: 08/14/18 20:46 Admit Provider: David Tran
--- NOTE | 2018-08-14 19:23 | DI.RAD.S_ITS ---
PROCEDURE: XR CHEST 1V INDICATIONS: WEAKNESS COUGH TECHNIQUE: One view of the chest was acquired. COMPARISON: [facility], CR, XR CHEST 2V, 10/20/2017, 10:44. FINDINGS: Surgical changes and devices: None. Lungs and pleura: Lungs are clear. No pleural effusions or pneumothorax. Mediastinum: Mediastinal contours appear normal. Heart size is normal. Bones and chest wall: No suspicious bony lesions. Overlying soft tissues appear unremarkable. IMPRESSION: No acute process. Dictated by: Roberta Downing M.D. on 08/14/2018 at 19:36 Approved by: Roberta Downing M.D. on 08/14/2018 at 19:37
[2018-08-14 19:40] LABS: Add Manual Diff / Slide Review NO; Basophils Absolute Auto 0 /uL (0-100); Basophils Percent Auto 0.2 % (0-2); Eosinophils Absolute Auto 100 /uL (0-450); Eosinophils Percent Auto 0.6 % (2-4); Hematocrit 31.1 % (36-46); Hemoglobin 10.6 g/dL (12.0-16.0); Lymphocytes Absolute Auto 1400 /uL (1100-4500); Mean Corpuscular Hemoglobin 36.4 PG (26-34); Mean Corpuscular Volume 106.9 fL (80-100); Monocytes Absolute Auto 800 /uL (0-900); Monocytes Percent Auto 6.9 % (3-14); Neutrophils Absolute Auto 9700 /uL (1500-7000); Neutrophils Percent Auto 80.3 % (50-75); Platelet Count 60 X10^3/uL (150-400); Red Blood Cell Count 2.91 X10^6/uL (4.0-5.2); Red Cell Distribution Width 14.4 % (11.6-14.8); White Blood Cell Count 12.1 X10^3/uL (4.5-11.0)
[2018-08-14 19:57] LABS: PTT Partial Thromboplastin Tim 36 SECONDS (26.4-36.2)
[2018-08-14 19:59] LABS: Lactate (Lactic Acid) 4.8 mmol/L (0.7-2.1)
[2018-08-14 20:00] VITALS: BP 115/64; PULSE 92; RESP 14; TEMP 36.5; O2SAT 100
[2018-08-14 20:09] LABS: Alanine Aminotransferase 87 IU/L (9-52); Albumin Globulin Ratio 0.9 (1.0-2.8); Alkaline Phosphatase 116 U/L (38-126); Aspartate Aminotransferase 86 IU/L (14-36); Bilirubin Total 5.3 mg/dL (0.2-1.3); Blood Urea Nitrogen 8 mg/dL (7-17); Calcium 8.4 mg/dL (8.4-10.2); Carbon Dioxide 24 mmol/L (22-32); Chloride 97 mmol/L (98-107); Estimated Glomerular Filt Rate > 60.0 mL/min (>60); Globulin 3.4 g/dL (1.7-4.1); Glucose 288 mg/dL (70-100); HEMOLYSIS < 15 (0-50); Potassium 3.2 mmol/L (3.4-5.1); Sodium 132 mmol/L (137-145); Total Protein 6.4 g/dL (6.3-8.2)
[2018-08-14] MEDS: SODIUM CHLORIDE 0.9% 788 ML IV (20:12)
[2018-08-14] MEDS: PIPERACILLIN-TAZO 3.375 GM/50 ML FROZ.PIGGY IV (20:23)
--- NOTE | 2018-08-14 20:38 | ED_ITS ---
HPI - Weakness General Chief complaint: Weakness Stated complaint: WEAK, CHILLS, SENT FOR SEPTIC UTI Time Seen by Provider: 08/14/18 19:11 Source: patient Mode of arrival: ambulatory Limitations: no limitations History of Present Illness HPI Narrative: Patient is a 42-year-old female with history of alcoholism she w as recently admitted in July for alcohol withdrawal seizures and thrombocytopenia and epistaxis. At that time she was also found to have alcoholic hepatitis. She states that she has not had a drink since July 11 and that she has remained sober and going to meeting. The last 2 days she has felt weak and chilled despite it being quite warm outside. She has home health care who suggested she come to the emergency department for further evaluation could she did not look well. She is afebrile. The rest overall appears well. Slightly drawn just. She states she has no headache no neck pain. She has had some urinary incontinence which is abnormal for her but she really has no back pain, leg weakness numbness or tingling. She has had some right upper quadrant pain ongoing for the last 2 weeks not any worse. History of cholecystectomy and recent alcohol hepatitis. She has had regular bowel movements, overall no abdominal pain. She has had a little bit of a cough but no real shortness of breath no chest tightness or heart palpitations. Related Data Home Medications Medication Instructions Recorded Confirmed loratadine 10 mg tablet 10 mg PO DAILY 10/06/17 08/14/18 acidophilus-pectin, citrus 2 cap PO DAILY 08/14/18 08/14/18 [Acidophilus Probiotic] methylprednisolone 4 mg PO DAILY 08/14/18 08/14/18 multivit with min-folic acid 1 tab PO DAILY 08/14/18 08/14/18 [Adult Multivitamin Gummies] omeprazole 40 mg PO DAILY 08/14/18 08/14/18 Previous Rx's Medication Instructions Recorded albuterol sulfate HFA 90 2 inhalation INHALATION Q4HP PRN 10/25/17 mcg/actuation aerosol inhaler #200 inhalation fluticasone furoate 200 1 inhalation INHALATION DAILY #28 01/29/18 mcg-vilanterol 25 mcg/dose each inhalation powder walker #1 each 07/25/18 glipizide ER 5 mg tablet, extended 5 mg PO DAILY #30 tab 08/09/18 release 24 hr trazodone 50 mg tablet 50 mg PO BEDTIME #30 tab 08/09/18 Allergies Allergy/AdvReac Type Severity Reaction Status Date / Time aspirin AdvReac Verified 08/14/18 19:07 Review of Systems Review of Systems ROS Unobtainable: All systems reviewed & are unremarkable except as noted in HPI and below Constitutional Reports body ache(s), Reports chills and Reports weakness Eyes Denies change in vision, Denies eye discharge, Denies irritation and Denies loss of vision ENT Ears, Nose, Mouth, and Throat: Denies change in voice, Denies neck pain and Denies sore throat Cardiovascular Denies dyspnea Respiratory Reports as per HPI, Reports cough and Denies dyspnea Genitourinary Denies hematuria, Denies flank pain, Denies urinary incontinence and Denies urinary urgency Musculoskeletal Denies neck pain Integumentary/Breasts Denies pruritus, Denies erythema, Denies rash and Denies wounds Neurologic Denies confusion, Denies loss of vision and Reports weakness Psychiatric Denies anxiety, Denies confusion, Denies depression, Denies homicidal ideation and Denies suicidal ideation [facility] Medical History Asthma (Chronic) Chronic migraine (Chronic) Major depressive disorder, recurrent, moderate (Chronic 12/31/10) Gastro-esophageal reflux (Chronic 12/31/10) Allergic rhinitis (Chronic) Asthma (Chronic) Bipolar disorder (Chronic) Duodenal ulcer (Chronic 09/2009) Surgical History Status post endoscopy (Resolved 09/2009) Family History Other Alcoholism Asthma Social History household members: spouse Smoking Status: Current some day smoker alcohol intake: current Family History Other Alcoholism Asthma Social History household members: spouse Smoking Status: Current some day smoker alcohol intake: former Exam Initial Vital Signs Initial Vital Signs: Vital Signs Temperature 97.7 F 08/14/18 19:02 Pulse Rate 92 H 08/14/18 19:02 Respiratory Rate 14 08/14/18 19:02 Blood Pressure 115/64 08/14/18 19:02 Pulse Oximetry 100 08/14/18 19:02 GENERAL: Alert and oriented slightly jaundiced well-appearing female anxious HEENT: Head atraumatic,EOMI, pupils reactive, face symmetric, neck is supple no meningeal signs CARDIOVASCULAR: Regular rate and rhythm without murmurs, rubs or gallops. RESPIRATORY: Breath sounds equal bilaterally, no wheezes rales or rhonchi. ABDOMEN: Soft, nondistended, minimal right upper quadrant tenderness no Campos sign no guarding no rebound : No CVA tenderness EXTREMITIES: Normal range of motion, no clubbing or edema. Neurovascularly intact NEUROLOGICAL: Alert and oriented x4.Normal gait and speech. Cranial nerves II through XII grossly intact. SKIN: Warm, dry, no laceration, no petechiae, no rashes or lesions. Course Orders Ordered: ED Orders 08/14/18 19:23 XR chest 1V Stat Blood Culture Stat Complete Blood Count AUTO DIFF Stat Comprehensive Metabolic Panel Stat Lactate (Lactic Acid) Stat Partial Thromboplastin Time Stat Procalcitonin Stat Prothrombin Time INR Stat 08/14/18 20:45 US abdomen limited Stat 08/14/18 22:30 MRSA PCR Urgent Acetaminophen (Tylenol) 650 mg PO Q6HR PRN PRN Reason: As Needed for Fever/Mild Pain Piperacillin/Tazobactam/Dextrose (Zosyn) 3.375 gm in 50 mls @ 100 mls/hr IV Q6HR [facility] Sodium Chloride (Normal Saline 0.9%) 1,000 mls @ 125 mls/hr IV CONT [facility] Last Admin: 08/15/18 00:26 Dose: 125 mls/hr Ceftriaxone Sodium/Dextrose (Rocephin) 2 gm in 50 mls @ 100 mls/hr IV Q8HR [facility] Discontinued Medications Sodium Chloride (Normal Saline 0.9%) 2,364 mls @ 788 mls/hr 30 ml/kg infuse over 3 hr (2364 ml) IV NOW ONE Stop: 08/14/18 23:07 Last Infusion: 08/14/18 22:01 Dose: 0 mls/hr Admin: 08/14/18 20:12 Dose: 788 mls/hr Vancomycin HCl 1,250 mg/ (Sodium Chloride) 250 mls @ 250 mls/hr IV NOW ONE Stop: 08/14/18 20:09 Last Infusion: 08/14/18 22:01 Dose: 0 mls/hr Admin: 08/14/18 21:09 Dose: 250 mls/hr Piperacillin/Tazobactam/Dextrose (Zosyn) 3.375 gm in 50 mls @ 100 mls/hr IV NOW ONE Stop: 08/14/18 20:39 Last Infusion: 08/14/18 21:09 Dose: 0 mls/hr Admin: 08/14/18 20:23 Dose: 100 mls/hr Ceftriaxone Sodium/Dextrose (Rocephin) 2 gm in 50 mls @ 100 mls/hr IV Q8HR [facility] Ceftriaxone Sodium/Dextrose (Rocephin) 2 gm in 50 mls @ 100 mls/hr IV NOW ONE Stop: 08/14/18 22:29 Last Infusion: 08/15/18 01:36 Dose: 200 mls/hr Admin: 08/15/18 00:26 Dose: 100 mls/hr Vital Signs - 8 hr 08/14/18 19:02 08/14/18 20:00 08/14/18 20:59 Temperature 97.7 F 97.7 F Pulse Rate 92 H 92 H 76 Respiratory Rate 14 14 19 Blood Pressure 115/64 115/64 Blood Pressure [Left Arm] 121/53 L Pulse Oximetry 100 100 97 08/14/18 21:30 08/14/18 21:53 Temperature 98.4 F Pulse Rate 70 74 Respiratory Rate 17 20 Blood Pressure 100/61 Blood Pressure [Left Arm] 118/69 Pulse Oximetry 96 93 MDM - Weakness Lab Data Attestation: I reviewed the patient's lab results. Result diagrams: 08/14/18 19:23 08/14/18 19:23 Lab Results 08/14/18 08/14/18 08/14/18 Range/Units 19:23 19:23 19:23 WBC 12.1 H (4.5-11.0) X10^3/uL RBC 2.91 L (4.0-5.2) X10^6/uL Hgb 10.6 L (12.0-16.0) g/dL Hct 31.1 L (36-46) % MCV 106.9 H (80-100) fL MCH 36.4 H (26-34) PG MCHC 34.0 (30-36) % RDW 14.4 (11.6-14.8) % Plt Count 60 L (150-400) X10^3/uL Neut % (Auto) 80.3 H (50-75) % Lymph % (Auto) 12.0 L (25-40) % Pratt % (Auto) 6.9 (3-14) % Eos % (Auto) 0.6 L (2-4) % Baso % (Auto) 0.2 (0-2) % Neut # (Auto) 9700 H (9424-0806) /uL Lymph # (Auto) 1400 (6417-8037) /uL Pratt # (Auto) 800 (0-900) /uL Eos # (Auto) 100 (0-450) /uL Baso # (Auto) 0 (0-100) /uL PT 23.0 H (10.1-12.7) SECONDS INR 2.0 H (0.9-1.3) APTT 36 D (26.4-36.2) SECONDS Sodium (137-145) mmol/L Potassium (3.4-5.1) mmol/L Chloride (98-107) mmol/L Carbon Dioxide (22-32) mmol/L BUN (7-17) mg/dL Creatinine (0.52-1.04) mg/dL Estimated GFR (>60) mL/min BUN/Creatinine Ratio (6-22) Glucose (70-100) mg/dL Lactate (0.7-2.1) mmol/L Calcium (8.4-10.2) mg/dL Total Bilirubin (0.2-1.3) mg/dL AST (14-36) IU/L ALT (9-52) IU/L Alkaline Phosphatase (38-126) U/L Total Protein (6.3-8.2) g/dL Albumin (3.5-5.0) g/dL Globulin (1.7-4.1) g/dL Albumin/Globulin Ratio (1.0-2.8) Lipase (23-300) U/L Procalcitonin 0.50 (<0.5) ng/mL Nasal Screen MRSA (PCR) (Negative) 08/14/18 08/14/18 08/14/18 Range/Units 19:23 19:23 21:55 WBC (4.5-11.0) X10^3/uL RBC (4.0-5.2) X10^6/uL Hgb (12.0-16.0) g/dL Hct (36-46) % MCV (80-100) fL MCH (26-34) PG MCHC (30-36) % RDW (11.6-14.8) % Plt Count (150-400) X10^3/uL Neut % (Auto) (50-75) % Lymph % (Auto) (25-40) % Pratt % (Auto) (3-14) % Eos % (Auto) (2-4) % Baso % (Auto) (0-2) % Neut # (Auto) (4595-2120) /uL Lymph # (Auto) (8358-1635) /uL Pratt # (Auto) (0-900) /uL Eos # (Auto) (0-450) /uL Baso # (Auto) (0-100) /uL PT (10.1-12.7) SECONDS INR (0.9-1.3) APTT (26.4-36.2) SECONDS Sodium 132 L (137-145) mmol/L Potassium 3.2 L (3.4-5.1) mmol/L Chloride 97 L (98-107) mmol/L Carbon Dioxide 24 (22-32) mmol/L BUN 8 (7-17) mg/dL Creatinine 0.40 L (0.52-1.04) mg/dL Estimated GFR > 60.0 (>60) mL/min BUN/Creatinine Ratio 20.0 (6-22) Glucose 288 H D (70-100) mg/dL Lactate 4.8 H* 2.3 H (0.7-2.1) mmol/L Calcium 8.4 (8.4-10.2) mg/dL Total Bilirubin 5.3 H (0.2-1.3) mg/dL AST 86 H (14-36) IU/L ALT 87 H (9-52) IU/L Alkaline Phosphatase 116 D (38-126) U/L Total Protein 6.4 (6.3-8.2) g/dL Albumin 3.0 L (3.5-5.0) g/dL Globulin 3.4 (1.7-4.1) g/dL Albumin/Globulin Ratio 0.9 L (1.0-2.8) Lipase (23-300) U/L Procalcitonin (<0.5) ng/mL Nasal Screen MRSA (PCR) (Negative) 08/14/18 08/14/18 Range/Units 22:30 Unknown WBC (4.5-11.0) X10^3/uL RBC (4.0-5.2) X10^6/uL Hgb (12.0-16.0) g/dL Hct (36-46) % MCV (80-100) fL MCH (26-34) PG MCHC (30-36) % RDW (11.6-14.8) % Plt Count (150-400) X10^3/uL Neut % (Auto) (50-75) % Lymph % (Auto) (25-40) % Pratt % (Auto) (3-14) % Eos % (Auto) (2-4) % Baso % (Auto) (0-2) % Neut # (Auto) (5600-1229) /uL Lymph # (Auto) (0878-5032) /uL Pratt # (Auto) (0-900) /uL Eos # (Auto) (0-450) /uL Baso # (Auto) (0-100) /uL PT (10.1-12.7) SECONDS INR (0.9-1.3) APTT (26.4-36.2) SECONDS Sodium (137-145) mmol/L Potassium (3.4-5.1) mmol/L Chloride (98-107) mmol/L Carbon Dioxide (22-32) mmol/L BUN (7-17) mg/dL Creatinine (0.52-1.04) mg/dL Estimated GFR (>60) mL/min BUN/Creatinine Ratio (6-22) Glucose (70-100) mg/dL Lactate (0.7-2.1) mmol/L Calcium (8.4-10.2) mg/dL Total Bilirubin (0.2-1.3) mg/dL AST (14-36) IU/L ALT (9-52) IU/L Alkaline Phosphatase (38-126) U/L Total Protein (6.3-8.2) g/dL Albumin (3.5-5.0) g/dL Globulin (1.7-4.1) g/dL Albumin/Globulin Ratio (1.0-2.8) Lipase 206 (23-300) U/L Procalcitonin (<0.5) ng/mL Nasal Screen MRSA (PCR) Negative for mrsa (Negative) Urine Dip Bedside Urine Glucose 1000 mg/dl Bedside Urine Bilirubin - Negative Bedside Urine Ketone - Negative Urine Specific [place] 1.015 Bedside Urine Occult Blood - Negative Bedside Urine pH 6.0 Bedside Urine Protein - Negative Bedside Urine Urobilinogen 1+ 2mg Bedside Urine Nitrite - Negative Bedside Urine Leukocytes - Negative Esterase MDM Narrative Medical decision making narrative: Patient has significantly elevated lactic acid of 4.8 elevated procalcitonin and a mild leukocytosis. Overall she is not in septic shock. Normal blood pressure normal heart rate. No real source of infection. Urine is clear x-ray is clear her abdomen is relatively soft I do not suspect spontaneous bacterial peritonitis she is not a candidate for a paracentesis at this time due to her low platelets and elevated INR, nonetheless I have treated her empirically with Rocephin. She has also been given Zosyn and vancomycin. She has no signs of meningitis. Discussed case with Dr. Tran windows application developer. He agrees with treatment plan and antibiotics. Discharge Plan Departure Patient Disposition: Admitted As Inpatient Clinical Impression: Sepsis Qualifiers: Sepsis type: sepsis due to unspecified organism Qualified Code(s): A41.9 - Sepsis, unspecified organism Discharge Date/Time: 08/14/18 22:02 Interventions: ED Discharge Assessment Last Done: 08/14/18 22:00 Referrals: Nahum Oakley MD [Primary Care Provider] - Admit Date/Time: 08/14/18 20:46 Admit Provider: David Tran
--- NOTE | 2018-08-14 20:45 | DI.US.S_ITS ---
PROCEDURE: US ABDOMEN LIMITED INDICATIONS: RIGHT UPPER QUADRANT PAIN; POSSIBLE ASCITIES TECHNIQUE: Real-time focused scanning was performed of the abdomen, with image documentation. COMPARISON: None. FINDINGS: Liver is within normal limits. Visualized pancreas within normal limits. Gallbladder surgically absent. Minimal free fluid within the pelvis and right upper quadrant. No biliary ductal dilatation. IMPRESSION: Minimal free fluid. Dictated by: Roberta Downing M.D. on 08/14/2018 at 22:00 Approved by: Roberta Downing M.D. on 08/14/2018 at 22:01
[2018-08-14 20:59] VITALS: BP 121/53; PULSE 76; RESP 19; O2SAT 97
[2018-08-14] MEDS: VANCOMYCIN 1,250 MG in SODIUM CHLORIDE 0.9% 250 ML IV (21:09)
[2018-08-14 21:30] VITALS: BP 118/69; PULSE 70; RESP 17; O2SAT 96
[2018-08-14 21:37] LABS: Reflexed Lactate in 2 Hours Y
[2018-08-14 21:41] LABS: Lipase 206 U/L (23-300)
[2018-08-14 21:53] VITALS: BP 100/61; PULSE 74; RESP 20; TEMP 36.9; O2SAT 93
[2018-08-14 22:13] LABS: Lactate 2HR (Lactic Acid Rflx) 2.3 mmol/L (0.7-2.1)
[2018-08-14 22:17] VITALS: BMI 27.5
--- NOTE | 2018-08-14 23:10 | PC.NURSE ---
2149 - Pt to room from ER. Stand-pivot to bed. Unsteady gait. Pt reports using cane at home, also reports recent ground level fall. Pt reports pain to RUQ currently 4 of 10. States that she nothing helps with the pain, states that she just waits it out. Oriented to room and routine. Med rec completed. Snack provided. A-febril. Call light in reach.
[2018-08-15] VITALS (10 sets, daily range): BP systolic 92–119; BP diastolic 49–70; PULSE 73–82; RESP 16–20; TEMP 36.5–37.3; O2SAT 94–98
[2018-08-15] MEDS: CEFTRIAXONE 2 GM/50 ML FROZ.PIGGY IV ×2 (00:26→12:29)
[2018-08-15] MEDS: SODIUM CHLORIDE 0.9% 1,000 ML 125 ML IV ×3 (00:26→19:53)
[2018-08-15] MEDS: PIPERACILLIN-TAZO 3.375 GM/50 ML FROZ.PIGGY IV ×4 (03:01→19:52)
--- NOTE | 2018-08-15 07:53 | P.HP_ITS ---
History of Present Illness Date Patient Seen: 08/15/18 Time Patient Seen: 07:45 Chief complaint: WEAK, CHILLS, SENT FOR SEPTIC UTI Narrative: Patient admitted via the emergency department after presenting with weakness and chills. She was seen by home health services who thought she was septic (although uncertain as to how they came to that conclusion). She refused to come to the ER that time but eventually was transported by family. She was recently hospitalized with alcohol withdrawal and severe alcoholic hepatitis still recuperating from that. Still quite weak requiring assistance for simple ambulation at home. Says she has been sober since July 11. Had some urinary incontinence but no urinary pain. No back pain. Perhaps some mild abdominal pain particularly right upper quadrant. As part of her treatment for alcoholic hepatitis she has just completed a course of oral steroids. She has also been hyperglycemic without a diagnosis of diabetes likely a combination of the steroids as well as her serious illness/hepatic dysfunction She was evaluated in the emergency department no particular source of infection was discovered. She had mild leukocytosis but otherwise her workup was really quite unremarkable. She had negative chest x-ray negative abdominal ultrasound for any large fluid collections or ascites and nothing in the right upper quadrant. She was admitted for further evaluation after receiving IV antibiotics in the emergency department. Patient History Medical History (Updated 08/15/18 @ 07:48 by Nahum Oakley MD) Asthma (Chronic) Chronic migraine (Chronic) Major depressive disorder, recurrent, moderate (Chronic 12/31/10) Gastro-esophageal reflux (Chronic 12/31/10) Allergic rhinitis (Chronic) Alcoholic hepatitis (Chronic) Alcoholism (Chronic) Asthma (Chronic) Bipolar disorder (Chronic) Duodenal ulcer (Chronic 09/2009) Surgical History Status post endoscopy (Resolved 09/2009) Family History Other Alcoholism Asthma Social History household members: spouse Smoking Status: Current some day smoker alcohol intake: former Family & Social History Family History Other Alcoholism Asthma Social History: household members spouse Prior Living Arrangements House Safety & Behavioral: Feels Safe in Current Yes Environment Been Physically Hurt or No Threatened By a Person Suicidal Ideation Description None Tobacco & Substance use: Tobacco type e-cigarettes Smoking Status Current some day smoker alcohol intake former alcohol intake frequency 0-2 drinks per day Substance Use Type does not use Meds Home Medications Medication Instructions Recorded Confirmed Type loratadine 10 mg tablet 10 mg PO DAILY 10/06/17 08/14/18 History albuterol sulfate HFA 90 2 inhalation INHALATION Q4HP PRN 10/25/17 08/14/18 Rx mcg/actuation aerosol inhaler #200 inhalation fluticasone furoate 200 1 inhalation INHALATION DAILY #28 01/29/18 08/14/18 Rx mcg-vilanterol 25 mcg/dose each inhalation powder walker #1 each 07/25/18 08/14/18 Rx glipizide ER 5 mg tablet, extended 5 mg PO DAILY #30 tab 08/09/18 08/14/18 Rx release 24 hr trazodone 50 mg tablet 50 mg PO BEDTIME #30 tab 08/09/18 08/14/18 Rx acidophilus-pectin, citrus 2 cap PO DAILY 08/14/18 08/14/18 History [Acidophilus Probiotic] methylprednisolone 4 mg PO DAILY 08/14/18 08/14/18 History multivit with min-folic acid 1 tab PO DAILY 08/14/18 08/14/18 History [Adult Multivitamin Gummies] omeprazole 40 mg PO DAILY 08/14/18 08/14/18 History Allergies Allergy/AdvReac Type Severity Reaction Status Date / Time aspirin AdvReac Verified 08/14/18 19:07 Review of Systems Constitutional Constitutional: Denies excessive sweating, Denies fever(s), Denies headache(s), Reports lack of energy, Reports weakness, Denies weight gain and Denies weight loss Eyes Eyes: Denies change in vision, Denies itchy eyes, Denies loss of vision and Denies other visual disturbances ENT Ears, Nose, Mouth, and Throat: No difficulty swallowing, No headache(s) and No neck pain Cardiovascular Cardiovascular: Denies chest pain, Denies fainting, Denies fast heart rate, Denies irregular heart rhythm, Denies rapid, pounding, or irregular heartbeat, Denies shortness of breath, Denies shortness of breath with activity and Denies slow heart rate Respiratory Respiratory: Denies dyspnea and Denies dyspnea on exertion Gastrointestinal Gastrointestinal: Denies abdominal pain, Denies bloating, Denies change in bowel habits, Denies change in stool character, Denies dysphagia, Denies nausea, Denies vomiting and Denies hematemesis Genitourinary Genitourinary: Denies hematuria, Denies urinary frequency and Denies difficulty voiding Musculoskeletal Musculoskeletal: Denies myalgias, Denies arthralgias, Denies limited range of motion and Denies neck pain Integumentary/Breasts Skin/Breast: Denies bleeding lesions, Denies change in pigmentation, Denies changing lesions, Denies new lesions, Denies rash, Denies skin swelling, Denies sores and Denies jaundice Neurologic Neurologic: Denies behavioral changes, Denies confusion, Denies syncope, Denies headache(s), Denies loss of vision, Denies memory loss and Reports weakness Psychiatric Psychiatric: Denies behavioral changes, Denies change in appetite, Denies confusion, Denies difficulty concentrating, Denies auditory hallucinations, Denies memory loss, Denies mood swings and Denies suicidal ideation Endocrine Endocrine: Denies excessive sweating and Denies palpitations Hematologic/Lymphatic Hematologic/Lymphatic: Denies easy bleeding, Denies easy bruising and Denies lymphadenopathy Allergic/Immunologic Allergic/Immunologic: Denies itchy eyes Exam Vital Signs (past 8 hours): - 08/15/18 03:10 08/15/18 05:53 08/15/18 07:33 Temperature 97.7 F 98.2 F 98.4 F Pulse Rate 79 75 78 Respiratory Rate 20 16 18 Blood Pressure 92/53 L 100/63 108/70 Pulse Oximetry 94 95 95 Oxygen Delivery Method Room Air Const General: cooperative, healthy appearing, comfortable, well developed and well groomed Nutritional Appearance: well nourished Orientation: alert, awake and oriented x3 [facility] Head: normocephalic, atraumatic, No cyanosis of lips/distal nose, No raccoon eyes and No periorbital ecchymosis Ears: hearing grossly normal bilaterally and external ears normal Nose: external nose normal and nares normal Face and sinus: normal facial exam and face symmetric Mouth: oral mucosae normal, lip normal and tongue normal Eyes Alignment and Position: alignment normal Periorbital: periorbital findings normal Eyelids: eyelids normal Conjunctivae: conjunctivae normal Sclera: sclerae normal Cornea: corneas normal Pupils: PERRL EOM: EOM intact bilaterally Neck Neck: normal visual inspection, full ROM, trachea midline and No anterior neck swelling Thyroid: not diffusely enlarged Carotids: normal carotid upstroke Lymphatic: No lymphadenopathy Chest Chest: normal inspection of the chest, No crepitus and No tenderness Breast inspection: normal inspection of the breasts Resp Effort & Inspection: normal respiratory effort, able to speak in complete sentences, no audible wheezes, no cough, no retractions and not tachypneic Auscultation: clear to auscultation bilaterally, no rales, no rhonchi, no wheezes and no rubs Percussion: percussion normal Tactile Fremitus: tactile fremitus absent Cardio Palpation: normal PMI Rate: regular rate Rhythm: regular rhythm Heart Sounds: S1 normal, S2 normal and normal, physiologic split S2 Bruits: no carotid bruits Pulses: brachial pulses present and radial pulses present GI Inspection: normal to inspection Palpation: soft and no hepatosplenomegaly Percussion: normal to percussion Auscultation: normal bowel sounds Back/Spine/Pelvis Back: No CVA tenderness Cervical Spine: normal cervical lordosis Thoracic/Lumbar Spine: thoracic and lumbar spine normal to inspection Skin General: no rashes or lesions noted, No excoriations, No induration, No jaundice, No mottling and No petechiae Lesions: no lesions (no worrisome/abl lesions) Rashes: no rashes Trauma: no lacerations or abrasions Wounds: no wounds Hair: normal Neuro General: alert, awake, oriented x3, tone normal and normal light touch, pain and propioception Cranial Nerves: CN's II-XI intact bilaterally Cognition: normal cognition Speech: speech normal Motor: muscle tone normal throughout Sensory Exam: no sensory deficits noted DTR's: Rt Biceps: 2+, Lt Biceps: 2+, Rt Brachioradialis: 2+, Lt Brachioradialis: 2+, Rt Patellar: 2+ and Lt Patellar: 2+ Extrem General: normal to inspection, no clubbing, cyanosis or edema and No calf tenderness Right upper extremity: normal to inspection Left upper extremity: normal to inspection Right lower extremity: normal to inspection Left lower extremity: normal to inspection Psych Appearance: grossly normal Mental Status: mental status grossly normal Speech and Movement: speech and movement normal and speech clear Mood: congruent mood Affect: normal affect Attitude: cooperative Thought Process: normal Thought Content: normal Judgment: judgment good Objective Labs Result Diagrams: 08/14/18 19:23 08/14/18 19:23 Labs: Laboratory Results - last 24 hr 08/14/18 08/14/18 08/14/18 19:23 19:23 19:23 WBC 12.1 H RBC 2.91 L Hgb 10.6 L Hct 31.1 L MCV 106.9 H MCH 36.4 H MCHC 34.0 RDW 14.4 Plt Count 60 L Neut % (Auto) 80.3 H Lymph % (Auto) 12.0 L Hays % (Auto) 6.9 Eos % (Auto) 0.6 L Baso % (Auto) 0.2 Neut # (Auto) 9700 H Lymph # (Auto) 1400 Hays # (Auto) 800 Eos # (Auto) 100 Baso # (Auto) 0 PT 23.0 H INR 2.0 H APTT 36 D Sodium Potassium Chloride Carbon Dioxide BUN Creatinine Estimated GFR BUN/Creatinine Ratio Glucose Lactate Calcium Total Bilirubin AST ALT Alkaline Phosphatase Total Protein Albumin Globulin Albumin/Globulin Ratio Lipase Procalcitonin 0.50 Nasal Screen MRSA (PCR) 08/14/18 08/14/18 08/14/18 19:23 19:23 21:55 WBC RBC Hgb Hct MCV MCH MCHC RDW Plt Count Neut % (Auto) Lymph % (Auto) Hays % (Auto) Eos % (Auto) Baso % (Auto) Neut # (Auto) Lymph # (Auto) Hays # (Auto) Eos # (Auto) Baso # (Auto) PT INR APTT Sodium 132 L Potassium 3.2 L Chloride 97 L Carbon Dioxide 24 BUN 8 Creatinine 0.40 L Estimated GFR > 60.0 BUN/Creatinine Ratio 20.0 Glucose 288 H D Lactate 4.8 H* 2.3 H Calcium 8.4 Total Bilirubin 5.3 H AST 86 H ALT 87 H Alkaline Phosphatase 116 D Total Protein 6.4 Albumin 3.0 L Globulin 3.4 Albumin/Globulin Ratio 0.9 L Lipase Procalcitonin Nasal Screen MRSA (PCR) 08/14/18 08/14/18 22:30 Unknown WBC RBC Hgb Hct MCV MCH MCHC RDW Plt Count Neut % (Auto) Lymph % (Auto) Hays % (Auto) Eos % (Auto) Baso % (Auto) Neut # (Auto) Lymph # (Auto) Hays # (Auto) Eos # (Auto) Baso # (Auto) PT INR APTT Sodium Potassium Chloride Carbon Dioxide BUN Creatinine Estimated GFR BUN/Creatinine Ratio Glucose Lactate Calcium Total Bilirubin AST ALT Alkaline Phosphatase Total Protein Albumin Globulin Albumin/Globulin Ratio Lipase 206 Procalcitonin Nasal Screen MRSA (PCR) Negative for mrsa Assessment & Plan Assessment & Plan narrative: 1. Recently ill relatively young patient with serious alcoholic based disease who was admitted with leukocytosis and generalized weakness with subjective chills but without fever. She also had elevated procalcitonin and lactate l evels in the emergency department without source of infection being readily identified. Urinary tract would seem the most likely source given the limited symptom she does have there. Urinalysis was borderline abnormal. Urine cultures are pending, as are blood cultures. Doubt SBP given lack of fluid in the abdomen but cannot rule that out either. She is relatively higher risk for paracentesis given her coagulopathy, and given lack of fluid on ultrasound would likely be nonproductive therefore that was not attempted and I would not advocate doing it either. Vital signs are stable. She is modestly hypotensive but that seems to be her baseline. She is not tachycardic. She was treated with IV antibiotics in the emergency department which will continue. Blood cultures were obtained. C ontinue with fluid resuscitation/support as well as IV antibiotics. I will also add IV steroids given her recent exposure to oral steroids for treatment of her alcoholic hepatitis over the last 28 days. She may have a degree of adrenal insufficiency. 2. Hyperglycemia-will put her on carbohydrate consistent diet and follow blood sugars with insulin as necessary. This will likely worsen with the use of the IV steroids as above. 3. Hypokalemia-will replace with oral potassium and recheck tomorrow 4. History recent alcoholic hepatitis with alcoholism seemingly in remission at this point anyway. Continue to monitor numbers. LFTs are stable relatively speaking. Bilirubin remains elevated at 5.3 and mild elevation of transaminases which has been consistent throughout. 5. Weakness-will have Physical therapy see her to continue to work with her while she is in the hospital here 6. DVT prophylaxis-will employ sequential compression devices. She continues to have a thrombocytopenia likely related to herpetic dysfunction and Lovenox is contraindicated. 7. Disposition-patient will likely demand to go home at some point. Will have Care Management work with patient to ensure home health services continues. She will need support to continue her sobriety as well. Quality VTE Deep Vein Thrombosis/Pulmonary Embolism Present on Admission: No
[2018-08-15] MEDS: POTASSIUM CHLORIDE 20 MEQ TAB 40 MEQ PO ×2 (08:54→17:22)
[2018-08-15] MEDS: MULTIVITAMIN 1 TABLET 1 TAB PO (08:55)
[2018-08-15] MEDS: HYDROCORTISONE 100 MG/2 ML VIAL IV (08:55)
[2018-08-15] MEDS: PANTOPRAZOLE 40 MG TABLET PO (08:56)
--- NOTE | 2018-08-15 09:58 | PT.IIE ---
Surgical History (Last Reviewed 08/15/18 @ 07:48 by Nahum Oakley MD) Status post endoscopy (Resolved 09/2009) Medical History (Last Updated 08/15/18 @ 07:48 by Nahum Oakley MD) Asthma (Chronic) Chronic migraine (Chronic) Major depressive disorder, recurrent, moderate (Chronic 12/31/10) Gastro-esophageal reflux (Chronic 12/31/10) Allergic rhinitis (Chronic) Alcoholic hepatitis (Chronic) Alcoholism (Chronic) Asthma (Chronic) Bipolar disorder (Chronic) Duodenal ulcer (Chronic 09/2009) Physical Therapy Inpatient Evaluation/Re-Eval M1 PT/OT-IP Prior Functional Status Start: 08/15/18 09:31 Freq: NEEDED Status: Active Protocol: Document 08/15/18 09:00 AMB (Rec: 08/15/18 09:57 AMB [email or web address]) Medical Review Prior Functional Status Medical History Reviewed Yes Mobility and Gait Uses SPC in the home, FWW in the community Activities of Daily Living and IADL's Previously getting home health Prior Functional Level (Other details) 2 recent falls at home, one at night and needed assist for floor transfer. Does report spinning dizziness of recent onset that lasts for a few seconds, not associated with head movement per se. Social History Household Members spouse Living Arrangements House Number of Stairs To Enter/Railing? 2 stairs to enter, no rail Home Environment Tub/Shower Home Equipment Front Wheel Walker Straight Cane Shower Seat with Backrest Additional Social History Comment Lanny's boyfriend works nights, so he will be home with her during the day M2 PT-IP Current Condition Start: 08/15/18 09:31 Freq: NEEDED Status: Active Protocol: Document 08/15/18 09:00 AMB (Rec: 08/15/18 09:57 AMB [email or web address]) Physical Therapy Current Condition Current Condition Evaluation Date 08/15/18 Treatment Diagnosis difficulty walking, infection Onset Date 08/14/18 M3 PT-IP Subjective Start: 08/15/18 09:31 Freq: NEEDED Status: Active Protocol: Document 08/15/18 09:00 AMB (Rec: 08/15/18 09:57 AMB [email or web address]) Subjective Physical Therapy Visit Type Type Initial Evaluation Visit Start Time 09:00 Visit Stop Time 09:30 Total Visit Minutes 30 Physical Therapy Visit Comments Patient Comments Pt is willing to get up for PT Patient Goals Go home Therapy Pain Assessment Pain Present Pain Present Denied Pain M4 PT-IP Mobility and Gait Start: 08/15/18 09:31 Freq: NEEDED Status: Active Protocol: Document 08/15/18 09:00 AMB (Rec: 08/15/18 09:57 AMB [email or web address]) PT-Transfer Assessment Sit to and From Stand Sit to and from Stand Standby Assistance Equipment Transfer Assistive Device Gait Belt Straight Cane Transfers Transfer Destination Chair Transfer Technique Stand Step Pivot Transfer Ability Level of Assist Standby Assistance Gait Assessment Gait Gait Assistance Required: Contact Guard Assist Distance (Feet) 200 Assistive Devices Assistive Device Straight Cane Gait Deviations General Gait Pattern Ataxic Decreased Feet Clearance Wide Based Gait Comments Gait Comments Pt ambulates with slow careful steps, but is able to turn and backup over smooth surfaces with SPC. PT-Balance Assessment Sitting Balance and Reactions Static Sitting Balance Ability Normal Dynamic Sitting Balance Ability Good Standing Balance and Reactions Static Standing Balance Ability Good Dynamic Standing Balance Ability Fair M5 PT-IP Objective Assessments Start: 08/15/18 09:31 Freq: NEEDED Status: Active Protocol: Document 08/15/18 09:00 AMB (Rec: 08/15/18 09:57 AMB [email or web address]) Strength Lower Extremity Strength Assessment Right Impaired Hip 4 Knee 4- Ankle 4 Comments Strength Comments decreased knee extension strength on the right, L 5/5 Sensation Assessment Comments Sensation Comments Pt describes numbness in her right foot yesterday but states that it is now passed. Light touch grossly intact today. M6 PT-IP Treatment Start: 08/15/18 09:31 Freq: NEEDED Status: Active Protocol: Document 08/15/18 09:00 AMB (Rec: 08/15/18 09:57 AMB [email or web address]) Physical Therapy Treatment Exercises Exercises Ankle Pumps Short Arc Quads Education Education Provided Safety M7 PT-IP Assessment and Plan Start: 08/15/18 09:31 Freq: NEEDED Status: Active Protocol: Document 08/15/18 09:00 AMB (Rec: 08/15/18 09:57 AMB [email or web address]) PT Summary Assessment and Plan Potential Rehabilitation Potential Good Status of Condition at Evaluation Stable Summary Impairments Strength Balance Assessment Summary Lanny has been sick for the past month, she states she has been sober since early July. She became more sick and was admitted for concern of infection. She is hoping to go home soon, but states we are waiting for her blood cultures to get back. She states she is feeling better since being on IV antibiotics. She does report 2 recent falls at home and intermittent dizziness with moving from sit to stand or walking. She was getting home health. During her treatment today, she felt that she was close to her prior level of function which has not been very high considering her young age. She will benefit from further PT to assess safety with stairs and safety with returning home where she will be alone while her boyfriend is at work. Goals Bed Mobility Goal Independent Transfer Goal Independent Gait Goal Standby Assistance Cane Gait Distance 300 Other Goals Ascend and descend 2 steps with SPC without railing Days to Meet Goals 3 Frequency of Treatment Frequency Of Treatment Once a Day Treatment Plan Physical Therapy Treatment Plan Bed Mobility Training Transfer Training Gait Training Therapeutic Exercise Balance Retraining Other Recommendations and Next Treatment Stair training before d/c home Focus Recommendations To Nursing Amount of Assist Needed 1 Person Assist Discharge Recommendations PT Discharge Recommendations Home with Assistance Home Health
[2018-08-15] MEDS: VILANTEROL INHALATION (11:41)
[2018-08-15] MEDS: FLUTICASONE FUROATE INHALATION (11:41)
--- NOTE | 2018-08-15 12:15 | CM.DANOTE ---
Patient is a 42 year old female who was admitted on 08/14/18 for Weak, Chills, UTI. Pt has [facility] and [facility] for insurance and her PCP is Dr. Oakley. EMR was reviewed. Per MD, pt with likely new UTI and waiting for culture results and not stable for d/c yet today. Per PT, pt was able to participate in ambulation today with device and was slow but able to follow commands and seems to be close to baseline and likely will continue to progress for safe d/c home with HH. SW met bedside with pt and explained role and pt remembered this SW from d/c from [facility] 07/25/18 to home. Pt confirms that she still lives in [place] with her life partner Yevgeniy Ordonez who still works nightclub manager but is available during the day to assist if needed. Pt confirms that after her previous d/c home [facility] opened her to HH service and pt feels they are very helpful and would like to [facility] at d/c. Preference is home with HH when stable. Pt confirms that she has still been sober from alcohol since Jul 11 2018 and is not currently enrolled in any CD or MH services and currently not interested in establishing formal services at this time. Pt does not anticipate any further SW needs at d/c and pt would like to d/c home as soon as stable. SW called [facility] and alerted them to pt's readmit and confirmed they can accept pt back at d/c with Resume Orders. BRAD Raines faxed pt's H&P to [facility] to review. Plan: SW to follow for likely pt d/c home with [facility] when medically stable. SW to follow for any further needs pending culture results. BRETT Guo Discharge Planning/Care Management CM Discharge Assessment Start: 08/15/18 12:13 Freq: Status: Active Protocol: Document 08/15/18 12:13 BF (Rec: 08/15/18 12:15 BF [id number]) Discharge Planning Assessment Assigned Brazing Machine Tender BRETT Alejo Advance Directives? No Advance Directives on File No History Provided By Patient Significant Other Medical Record Has Patient been admitted in last 30 Yes days? Comment Last discharged 07/25/18 home with new [facility] Prior Living Arrangements House Household Members significant other Type of transporation used prior to Relies on Others admit Independent with ADL's Yes: mostly Is patient alert and oriented? Yes Needs Assistance With Managing Medications Home Chores / Shopping Caregiver for Another No Community Services used prior to Physical Therapy admission: Home Health Nurse DME Already Rented / Owned Cane Patient/Family Preference Home with Home Health Comment Pending further PT, likely home with [facility] Barriers to Discharge No Discharge Plan Home with Home Health Transportation Arrangement SHANTEL Vuong can likely provide transport home Referrals Initiated None needed Whiteboard Updated in Patient Room with Yes name and ext. # of Brazing Machine Tender Review Status In Process Please Provide Date Initial DC 08/15/18 Assessment Was Performed Next Review Type Continued Stay Review
[2018-08-15] MEDS: INSULIN ASPART 100 UNIT/ML INSULN PEN SUBCUT ×3 (12:28→20:40)
--- NOTE | 2018-08-15 15:49 | OT.IP.EVAL ---
Past Medical History (Last Updated 08/15/18 @ 07:48 by Nahum Oakley MD) Asthma (Chronic) Chronic migraine (Chronic) Major depressive disorder, recurrent, moderate (Chronic 12/31/10) Gastro-esophageal reflux (Chronic 12/31/10) Allergic rhinitis (Chronic) Alcoholic hepatitis (Chronic) Alcoholism (Chronic) Asthma (Chronic) Bipolar disorder (Chronic) Duodenal ulcer (Chronic 09/2009) Surgical History (Last Reviewed 08/15/18 @ 07:48 by Nahum Oakley MD) Status post endoscopy (Resolved 09/2009) Occupational Therapy Inpatient Evaluation/Re-Eval M1 PT/OT-IP Prior Functional Status Start: 08/15/18 09:31 Freq: NEEDED Status: Active Protocol: Document 08/15/18 15:49 BALDOMERO (Rec: 08/16/18 09:15 [email or web address] [id number]) Medical Review Prior Functional Status Medical History Reviewed Yes Diet/Fluid Consistency Regular Communication WNL Mobility and Gait Pt states she uses SPC in the home, FWW in the community. Activities of Daily Living and IADL's Pt states she is independent with all self care and does some light meal prep and light hydrochloric acid operator such as loading medical office specialist. Her S.O. supervises her medications and does most hydrochloric acid operator. He works from 3:30 pm to 9:30 pm daily. Prior Functional Level (Other details) Pt reports 2 recent falls at home, one at night and needed assist to get up from floor. Does report spinning dizziness of recent onset that lasts for a few seconds, not associated with head movement per se. Pt states she was receiving PT, OT, ST services at home prior to admit and would like to resume these at d/c Social History Household Members significant other Living Arrangements House Number of Floors (Floors) One Floor Number of Stairs To Enter/Railing? 2 stairs to enter Home Environment Standard Height Toilet Walk in Shower Tub/Shower Home Equipment Shower Seat with Backrest Hand Held Shower Employment Status Unemployed Additional Social History Comment pt states she is now using tub shower combo instead of shower stall M2 OT-IP Current Condition Start: 08/16/18 08:33 Freq: Status: Active Protocol: Document 08/15/18 15:49 BALDOMERO (Rec: 08/16/18 09:15 [email or web address] [id number]) Occupational Therapy Current Condition Current Condition Evaluation Date 08/15/18 Treatment Diagnosis decreased activity tolerance, mobility with dx UTI Post Operative Precautions Other Precautions fall risk M3 OT- IP Subjective and Pain Start: 08/16/18 08:33 Freq: Status: Active Protocol: Document 08/15/18 15:49 PJM (Rec: 08/16/18 09:15 PJ [id number]) OT- Subjective Occupational Therapy Visit Type Type Initial Evaluation Visit Start Time 15:31 Visit Stop Time 15:49 Total Visit Minutes 18 Occupational Therapy Visit Comments Patient Comments I really hope I can go home tomorrow/ Patient/Caregiver Goals to resume home therapy services to keep working on strength, endurance and thinking more clearly OT Pain Assessment Pain When Pain Assessed After Treatment Pain Present Pain Present Denied Pain M4 OT- IP ADL's Start: 08/16/18 08:33 Freq: Status: Active Protocol: Document 08/15/18 15:49 PJM (Rec: 08/16/18 09:15 PJ [email or web address]) OT VQZ-Tlji-Tjzukzh General Evaluation Self-Feeding Ability Independent OT ADL-Grooming General Evaluation Grooming Ability Independent Areas Needing Assistance Combing/Brushing Hair Face Washing Comments OT Grooming Comments after set up in bed OT ADL-Oral Care General Eval Oral Care Ability Independent Comments Oral Care Comments after set up in bed or chair OT ADL-Dressing General Eval Lower Body Dressing Ability Independent Areas Needing Assistance Socks Comments OT Dressing Comments seated EOB OT ADL-Toileting Comments OT Toileting Comments did not occur this session OT ADL-Bathing Comments OT Bathing Comments pt adamantly declines to shower here M5 OT- IP IADL's Start: 08/16/18 08:33 Freq: Status: Active Protocol: Document 08/15/18 15:49 PJ (Rec: 08/16/18 09:15 PJ [email or web address]) OT-Instrumental Activities of Daily Living Deficits IADL Deficits Identified Deficits Medication Management Medication Management Caregiver Provides Supervision Medication Management Comments pt states S.O. supervises all medication management Money Management Money Management Caregiver Provides Supervision Meal Preparation Meal Preparation Caregiver Provides Assist Meal Preparation Comments pt states she is doing some light meal prep at home Regional Sales Leader Regional Sales Leader Caregiver Provides Assist Regional Sales Leader Comments pt doing some light hydrochloric acid operator such as loading medical office specialist Driving Driving Caregiver Provides Assist Driving Comments pt is not driving at this time M6 OT- IP Functional Cognition Start: 08/16/18 08:33 Freq: Status: Active Protocol: Document 08/15/18 15:49 PJM (Rec: 08/16/18 09:15 PJM [email or web address]) Cognitive Factors Limiting Selfcare Function Cognitive Ability Level of Alertness Alert Patient Orientation Name Month Date Year Place Attention Span Ability Capable of Focused Attention Ability to Follow Commands Able to Follow One Step Commands Cognitive Comments Cognitive Assessment Comments Pt known to this therapist from last admission in July 2018. Pt alert and oriented with faster speed of processing noted compared to last admit. Will repeat cognitive assessments performed during last admission to further assess progress.Pt appears to have anxiety overlay. OT- Vision and Hearing OT- Hearing Assessment OT- Hearing Assessment WFL OT- Vision Assessment Visual Acuity WFL Glasses All The Time M7 OT- IP Mobility and Balance Start: 08/16/18 08:33 Freq: Status: Active Protocol: Document 08/15/18 15:49 PJM (Rec: 08/16/18 09:15 PJM [email or web address]) OT- Bed Mobility Assessment Rolling Type of Rolling Roll to Right Level of Assistance Independent Supine to Sit Supine to Sit Assist Independent Sit to Supine Sit to Supine Assist Independent Scooting Scooting to Edge of Bed Independent OT-Transfer Assessment Comments Mobility Comments see P.T. notes, pt declines OOB activity this session due to fatigue OT- Gait Assessment Comments Gait Ability Comments see P.T. notes OT- Balance Assessment Sitting Balance and Reactions Static Sitting Balance Ability Good Dynamic Sitting Balance Ability Good M8 OT- IP Objective Assessments Start: 08/16/18 08:33 Freq: Status: Active Protocol: Document 08/15/18 15:49 PJM (Rec: 08/16/18 09:15 PJM [email or web address]) OT Gross Range of Motion Upper Extremity Range of Motion Assessment Within Functional Limits OT Strength Upper Extremity Strength Assessment Within Functional Limits Hand Cryogenic Transport Driver Strength Hand Dominance Right OT- Coordination Assessment Comments Coordination Comments BUE WFL for self care, mild B hand tremor noted OT-Muscle Tone Assessment Muscle Tone WNL Yes OT Sensation Assessment Comments Summary Comments pt denies deficits in BUE's M9 OT- IP Assessment and Plan Start: 08/16/18 08:33 Freq: Status: Active Protocol: Document 08/15/18 15:49 PJM (Rec: 08/16/18 09:15 PJM [email or web address]) OT Summary Assessment and Plan Potential Rehabilitation Potential Good Analytic Complexity at Evaluation Low Summary OT Impairments Functional Cognition Functional Mobility Toileting Bathing Toilet Transfers Shower Transfers Assessment Summary Low complexity OT assessment completed on this pt known to this therapist from her last admit for ETOH WD, seizures in July 2018. Pt readmitted with suspected UTI with weakness, chills. Pt currently has performance deficits in activity tolerance, functional mobility,standing self care tasks such as grooming, toileting and bathing. Will provide OT services to address goals below. Anticipate pt will d/c home and resume PT , OT, ST when medically stable . Note pt's S.O. works, so pt home alone about 8 hours in late afternoon and evening. Goals Grooming Goal Independent Dressing Goal Independent Toileting Goal Independent Bathing Goal Independent Toilet Transfer Goal Independent Shower Transfer Goal Standby Assistance OT-Other Goals Grooming to be done standing at sink with no loss of balance. Days to Meet Goals 3 Frequency of Treatment Frequency Of Treatment Once a Day Treatment Plan OT Treatment Plan ADL Training Functional Mobility Patient/Family Education Discharge Planning Discharge Recommendations OT Discharge Recommendations Home with Assistance Home Health Other Discharge Recommendations resume PT, OT, ST
[2018-08-15] MEDS: TRAZODONE 50 MG TABLET PO (19:53)
[2018-08-16] MEDS: CEFTRIAXONE 2 GM/50 ML FROZ.PIGGY IV (00:11)
[2018-08-16] MEDS: HYDROCORTISONE 100 MG/2 ML VIAL IV (00:11)
[2018-08-16 00:15] VITALS: O2SAT 95
[2018-08-16 00:25] VITALS: BP 109/79; PULSE 74; RESP 20; TEMP 35.9; O2SAT 95
[2018-08-16] MEDS: PIPERACILLIN-TAZO 3.375 GM/50 ML FROZ.PIGGY IV (03:24)
[2018-08-16 04:25] VITALS: BP 122/70; PULSE 68; RESP 22; TEMP 36.3; O2SAT 98
[2018-08-16 05:10] LABS: Add Manual Diff / Slide Review NO; Basophils Absolute Auto 0 /uL (0-100); Basophils Percent Auto 0.3 % (0-2); Eosinophils Absolute Auto 100 /uL (0-450); Eosinophils Percent Auto 0.6 % (2-4); Hematocrit 32.1 % (36-46); Hemoglobin 11.1 g/dL (12.0-16.0); Lymphocytes Absolute Auto 1200 /uL (1100-4500); Lymphocytes Percent Auto 13.3 % (25-40); Mean Corpuscular HGB Conc 34.5 % (30-36); Mean Corpuscular Hemoglobin 36.7 PG (26-34); Mean Corpuscular Volume 106.3 fL (80-100); Monocytes Absolute Auto 400 /uL (0-900); Monocytes Percent Auto 4.5 % (3-14); Neutrophils Absolute Auto 7400 /uL (1500-7000); Neutrophils Percent Auto 81.3 % (50-75); Platelet Count 64 X10^3/uL (150-400); Red Blood Cell Count 3.02 X10^6/uL (4.0-5.2); Red Cell Distribution Width 14.5 % (11.6-14.8)
[2018-08-16 05:20] LABS: Alanine Aminotransferase 78 IU/L (9-52); Albumin 2.6 g/dL (3.5-5.0); Albumin Globulin Ratio 0.7 (1.0-2.8); Alkaline Phosphatase 143 U/L (38-126); Aspartate Aminotransferase 79 IU/L (14-36); BUN Creatinine Ratio 17.5 (6-22); Bilirubin Total 3.3 mg/dL (0.2-1.3); Blood Urea Nitrogen 7 mg/dL (7-17); Calcium 7.6 mg/dL (8.4-10.2); Carbon Dioxide 22 mmol/L (22-32); Chloride 108 mmol/L (98-107); Estimated Glomerular Filt Rate > 60.0 mL/min (>60); Globulin 3.5 g/dL (1.7-4.1); Glucose 159 mg/dL (70-100); HEMOLYSIS < 15 (0-50); Potassium 3.6 mmol/L (3.4-5.1); Sodium 137 mmol/L (137-145); Total Protein 6.1 g/dL (6.3-8.2)
[2018-08-16] MEDS: PANTOPRAZOLE 40 MG TABLET PO (06:16)
[2018-08-16 08:00] VITALS: BP 103/68; PULSE 84; RESP 18; TEMP 36.6; O2SAT 97
[2018-08-16] MEDS: MULTIVITAMIN 1 TABLET 1 TAB PO (08:11)
[2018-08-16] MEDS: VILANTEROL INHALATION (08:11)
[2018-08-16] MEDS: FLUTICASONE FUROATE INHALATION (08:11)
[2018-08-16] MEDS: POTASSIUM CHLORIDE 20 MEQ TAB 40 MEQ PO (08:11)
[2018-08-16] MEDS: INSULIN ASPART 100 UNIT/ML INSULN PEN SUBCUT (08:12)
--- NOTE | 2018-08-16 08:39 | PM.DS.1 ---
History of Present Illness Chief complaint: WEAK, CHILLS, SENT FOR SEPTIC UTI Narrative: Patient admitted via the emergency department after presenting with weakness and chills. She was seen by home health services who thought she was septic (although uncertain as to how they came to that conclusion). She refused to come to the ER that time but eventually was transported by family. She was recently hospitalized with alcohol withdrawal and severe alcoholic hepatitis still recuperating from that. Still quite weak requiring assistance for simple ambulation at home. Says she has been sober since July 11. Had some urinary incontinence but no urinary pain. No back pain. Perhaps some mild abdominal pain particularly right upper quadrant. As part of her treatment for alcoholic hepatitis she has just completed a course of oral steroids. She has also been hyperglycemic without a diagnosis of diabetes likely a combination of the steroids as well as her serious illness/hepatic dysfunction She was evaluated in the emergency department no particular source of infection was discovered. She had mild leukocytosis but otherwise her workup was really quite unremarkable. She had negative chest x-ray negative abdominal ultrasound for any large fluid collections or ascites and nothing in the right upper quadrant. She was admitted for further evaluation after receiving IV antibiotics in the emergency department. Discharge Providers Date of admission: 08/14/18 20:46 Discharge Date: 08/16/18 Primary care physician: Nahum Oakley MD Consults: 08/15/18 07:41 Consult to Physical Therapy Evaluate & Treat Comment: Physician Instructions: Evaluate and Treat Consult to Spraying Machine Operator Routine Comment: discharge planning 08/15/18 09:43 Consult to Occupational Therapy Evaluate & Treat Comment: Physician Instructions: Evaluate and treat Discharge provider: Nahum Oakley MD Summary Discharge Diagnosis: 1. Leukocytosis with probable bacterial infection, source not identified 2. Transaminitis 3. Resolving alcoholic hepatitis 4. Hyperglycemia 5. Possible adrenal insufficiency Hospital Course: Patient was admitted as above after presenting to the emergency department. She had an elevated lactate and procalcitonin level but source of infection was not identified. Patient felt tremendously better with some IV fluids and/or IV antibiotics. She had no growth in her blood cultures. She was afebrile. Her LFTs improved ever so slightly upon repeat in the hospital Therefore while it was felt that she more likely than not had some sort of bacterial infection source was not identified. She will be continued on outpatient course of oral antibiotics upon discharge. Patient will continue to be abstinent home Patient has completed her course of steroids for alcoholic hepatitis and this will not be continued as an outpatient. She was treated for possible adrenal insufficiency but in the end that was not felt to be something that needed to be continued treated as an outpatient Patient will continue with home health services at home including PT and OT Patient will keep her follow-up appointment with me on August 31, 2018 Status at Discharge Cognitive/behavioral status at discharge: at baseline, oriented Functional status at discharge: uses cane/walker Overall status at discharge: patient is progressing back to baseline Exam Vital Signs (past 8 hours): - 08/16/18 04:25 Temperature 97.3 F L Pulse Rate 68 Respiratory Rate 22 Blood Pressure 122/70 Pulse Oximetry 98 Oxygen Delivery Method Room Air Oxygen Flow Rate 0 Narrative Exam Narrative: HEENT-unremarkable, normocephalic atraumatic Neck-no lymphadenopathy no bruits Lungs-clear anteriorly and posteriorly no wheezes no crackles good breath sounds Heart-regular rate and rhythm, no murmur, rub, or gallop. normal S1-S2 Abdomen-positive bowel tones, soft, nontender, nondistended, no hepatosplenomegaly, no masses palpable Neuro-normal to screening exam, gait not tested Extremities-no cyanosis clubbing or edema Objective Labs Result Diagrams: 08/16/18 04:47 08/16/18 04:47 Labs: Laboratory Results - last 24 hr 08/16/18 08/16/18 04:47 04:47 WBC 9.0 RBC 3.02 L Hgb 11.1 L Hct 32.1 L MCV 106.3 H MCH 36.7 H MCHC 34.5 RDW 14.5 Plt Count 64 L Neut % (Auto) 81.3 H Lymph % (Auto) 13.3 L Stanly % (Auto) 4.5 Eos % (Auto) 0.6 L Baso % (Auto) 0.3 Neut # (Auto) 7400 H Lymph # (Auto) 1200 Stan[place] # (Auto) 400 Eos # (Auto) 100 Baso # (Auto) 0 Sodium 137 Potassium 3.6 Chloride 108 H Carbon Dioxide 22 BUN 7 Creatinine 0.40 L Estimated GFR > 60.0 BUN/Creatinine Ratio 17.5 Glucose 159 H D Calcium 7.6 L Total Bilirubin 3.3 H AST 79 H ALT 78 H Alkaline Phosphatase 143 H Total Protein 6.1 L Albumin 2.6 L Globulin 3.5 Albumin/Globulin Ratio 0.7 L Discharge Plan Discharge Plan Discharge Problem: Sepsis Patient Disposition: Home Health Service Transfer to: [facility] Discharge Med Rec/Prescriptions Prescriptions: New amoxicillin-pot clavulanate 500-125 mg tablet 1 tab PO BID Qty: 14 RF: 0 Continued albuterol sulfate [Ventolin HFA] 90 mcg/actuation HFA aerosol inhaler 2 inhalation INHALATION Q4HP PRN (Reason: shortness of breath or wheezing) Qty: 200 RF: 0 glipizide 5 mg tablet extended release 24hr 5 mg PO DAILY Qty: 30 RF: 3 loratadine [Claritin] 10 mg tablet 10 mg PO DAILY RF: 0 trazodone 50 mg tablet 50 mg PO BEDTIME Qty: 30 RF: 4 fluticasone furoate-vilanterol [Breo Ellipta] 200-25 mcg/dose blister with device 1 inhalation INHALATION DAILY Qty: 28 RF: 11 walker misc .ROUTE .MEDSUPPLY Qty: 1 RF: 0 omeprazole 20 mg Capsule,Delayed Release(Dr/Ec) 40 mg PO DAILY RF: 0 acidophilus-pectin, citrus [Acidophilus Probiotic] 100 million cell-10 mg Capsule 2 cap PO DAILY RF: 0 Adult Multivitamin Gummies 200 mcg Tablet,Chewable 1 tab PO DAILY RF: 0 Discontinued methylprednisolone 8 mg tablet 4 mg PO DAILY RF: 0 Follow up/Referrals: Nahum Oakley MD [Primary Care Provider] - 08/31/18 (Appointment already exists) Provider Discharge Instructions Diet: Diet as Tolerated Skin/Wound/Dressing Care Report to your healthcare provider any signs of infection, such as:: chills, fever and night sweats Visit Report/Discharge Packet Instructions: DI for Urinary Tract Infection (UTI), DI for Sepsis -- Adult Visit Report Forms: Stroke Signs & Symptoms Discharge Data Primary Care Provider: Nahum Oakley Attending Provider: Nahum Oakley Admit Date/Time: 08/14/18 20:46 Discharges patient from system. Discharge Date/Time: 08/16/18 09:35 Quality VTE Deep Vein Thrombosis/Pulmonary Embolism Present on Admission: No
[2018-08-16] MEDS: AMOXICILLIN/CLAV 500/125 MG 1 TAB PO (09:26)
--- NOTE | 2018-08-16 09:30 | OT.IP.TRT ---
Occupational Therapy Treatment Note M3 OT- IP Subjective and Pain Start: 08/16/18 08:33 Freq: Status: Active Protocol: Document 08/16/18 09:30 PJM (Rec: 08/16/18 10:05 [facility] [id number]) OT- Subjective Occupational Therapy Visit Type Type Treatment Note Visit Start Time 09:18 Visit Stop Time 09:30 Total Visit Minutes 12 Occupational Therapy Visit Comments Patient Comments I can't wait to get home. Patient/Caregiver Goals to resume HH therapy services to get stronger and thinking more clearly OT Pain Assessment Pain When Pain Assessed After Treatment Pain Present Pain Present Denied Pain M4 OT- IP ADL's Start: 08/16/18 08:33 Freq: Status: Active Protocol: Document 08/16/18 09:30 PJM (Rec: 08/16/18 10:05 [facility] [id number]) OT ADL-Dressing General Eval Upper Body Dressing Ability Independent Lower Body Dressing Ability Independent Comments OT Dressing Comments pt dressed independently prior to therapist arrival per SATELLITE TV TECHNICIAN INSTALLER M6 OT- IP Functional Cognition Start: 08/16/18 08:33 Freq: Status: Active Protocol: Document 08/16/18 09:30 PJM (Rec: 08/16/18 10:05 [facility] [id number]) Cognitive Factors Limiting Selfcare Function Cognitive Ability Level of Alertness Alert Patient Orientation Name Month Date Year Place Situation Attention Span Ability Capable of Focused Attention Capable of Sustained Attention Ability to Follow Commands Able to Follow One Step Commands Cognitive Tests SLUMS 27/30 Cognitive Comments Cognitive Assessment Comments Pt's score on SLUMS now WNL. Previous score was 23/30 in July 2018. Pt no longer having difficulty with mental math or clock drawing. Improved word generation noted. She recalls 3/5 words after 5 min delay and recalls 4/4 facts about short paragraph read to her. M7 OT- IP Mobility and Balance Start: 08/16/18 08:33 Freq: Status: Active Protocol: Document 08/16/18 09:30 PJM (Rec: 08/16/18 10:05 [facility] [id number]) OT-Transfer Assessment Sit to and From Stand Sit to and from Stand Independent Transfers Transfer Ability Standby Assistance Technique Transfer Destination Chair Transfer Technique Stand Step Pivot Devices Transfer Assistive Devices Straight Cane Comments Mobility Comments pt carrying purse and clothing bag, moves quickly OT- Gait Assessment Gait Gait Assistance Required: Standby Assistance Distance (Feet) 10 Assistive Devices Assistive Device Straight Cane Comments Gait Ability Comments moves quickly OT- Balance Assessment Sitting Balance and Reactions Static Sitting Balance Ability Good Dynamic Sitting Balance Ability Good Standing Balance and Reactions Static Standing Balance Ability Good Dynamic Standing Balance Ability Fair Comments Other Balance Tests/Deviations/Treatment fair balance with purse, bag : when using cane, moves quickly M9 OT- IP Assessment and Plan Start: 08/16/18 08:33 Freq: Status: Active Protocol: Document 08/16/18 09:30 PJM (Rec: 08/16/18 10:05 PJM [id number]) OT Summary Assessment and Plan Potential Rehabilitation Potential Good Summary Progress Towards Goals Safe For Discharge Goals Met Assessment Summary Pt demonstrating significantly improved functional cognition compared to last admit and score now WNL on SLUMS. Pt will d/c home today and resume PT, OT, ST services. Frequency of Treatment Frequency Of Treatment Discharge Discharge Recommendations OT Discharge Recommendations Home with Assistance Home Health
--- NOTE | 2018-08-16 09:31 | PC.NURSE ---
Patient very eager for discharge, discharge instructions reviewed with patient, she states understanding. Patient is aware and plans for follow up on 08/[address] Oakley. Patient took oral antibiotics as ordered prior to discharge, and will picker packer prescription at [facility]. Patient instructed to seek care for worsening or return of symptoms and notify doctor for any questions or concerns.
--- NOTE | 2018-08-16 10:19 | CM.DPNOTE ---
DCP Discharge Home with Resume HH Per MD, pt medically stable to d/c home today with Resume HH and final PT. Per PT, planning to complete stair training prior to d/c today. Per RN, pt was ready for d/c home and already left the hospital this morning and no further concerns at this time. BRAD Raines kindly faxed d/c summ and HH orders to [facility] for Resume services. Plan: Patient discharged home this morning via sig other POV and Resume [facility]. BRETT Guo
== END 2018-08-16 09:35 | disposition home health service (06) ==
LOC: ED 20:45 → AC 20:49 → ICU 08-15 08:11 → AC 08-15 14:34
PROVIDERS: Admitting Provider Internal Medicine; Emergency Provider Emergency Medicine; Family Provider Internal Medicine; PCP Internal Medicine; Visit Provider Internal Medicine
DX: D72.829 Elevated white blood cell count, unspecified (principal); R53.1 Weakness; R74.0 Nonspecific elevation of levels of transaminase and lactic acid dehydrogenase [LDH]; K70.10 Alcoholic hepatitis without ascites; E72.51 Non-ketotic hyperglycinemia; F10.21 Alcohol dependence, in remission; J45.909 Unspecified asthma, uncomplicated; F33.9 Major depressive disorder, recurrent, unspecified; R32 Unspecified urinary incontinence
CPT/HCPCS: 36415; 36591; 71045; 76705; 80053; 81003; 82962; 83605; 83690; 84145; 85025; 85610; 85730; 87040; 87797; 94640; 96361; 96365; 96366; 96367; 96372; 96375; 97127; 97161; 97165; 99217; 99220; 99284; G0378; J0696; J1720; J2543

== ENCOUNTER → 2018-08-31 11:00 | Outpatient (CLI) | payer OTHER, MEDICAID, SELFPAY ==
[2018-08-14 22:17] VITALS: BMI 27.5
--- NOTE | 2018-08-31 11:12 | DI.US.S_ITS ---
PROCEDURE: US ABDOMEN COMPLETE INDICATIONS: RUQ PAIN TECHNIQUE: Real-time scanning was performed of the abdominal and retroperitoneal organs, with image documentation. COMPARISON: [facility], CT, CT ABDOMEN PELVIS W CON, 07/14/2018, 11:14. [facility], US, US ABDOMEN LIMITED, 08/14/2018, 21:25. FINDINGS: Liver: Liver is relatively small in size and mildly heterogeneous in echotexture consistent with the prior history of cirrhosis. Ascites is present along the hepatic margins, similar to that seen on recent prior ultrasound of the abdomen 08/14/18. Along the hepatic anterior capsule note is made of several nodular sonographic abnormalities along the hepatic capsular border, etiology uncertain but raising concern for peritoneal infection or neoplasm as the underlying cause Gallbladder: There has been prior cholecystectomy. Biliary ducts: Intrahepatic bile ducts are non-dilated. Extrahepatic bile duct caliber measures 8.0 mm. Normal is 6-7 mm or less in diameter, or 10 mm or less post-cholecystectomy. Pancreas: Visualized portions of the pancreas are sonographically normal. Spleen: Spleen is enlarged at 15.9 cm in size and homogeneous in echotexture. Kidneys: Kidneys are normal in size and echotexture. Right kidney measures 11.5 cm long; left kidney measures 12.8 cm long. No hydronephrosis or nephrolithiasis. No solid masses. Aorta: Visualized aorta is normal in caliber at less than 3 cm. Iliacs: Proximal common iliac arteries are normal in caliber at less than 2.5 cm. IVC: Intrahepatic inferior vena cava is patent. Miscellaneous: Moderate free abdominal fluid, little if any changed from the recent ultrasound but not present on CT scanning 07/14/18. IMPRESSION: Cirrhotic liver, fluid within the peritoneal space, splenomegaly. Unusual hepatic serosal micron nodularity is present raising concern for presence of exudative ascites such as in the setting of carcinomatosis or other causes of peritoneal nodularity and inflammation. Dictated by: Jayson Pena M.D. on 08/31/2018 at 14:55 Approved by: Jayson Pena M.D. on 08/31/2018 at 15:17
[2018-08-31 12:23] LABS: Add Manual Diff / Slide Review NO; Basophils Absolute Auto 100 /uL (0-100); Basophils Percent Auto 0.9 % (0-2); Eosinophils Absolute Auto 300 /uL (0-450); Eosinophils Percent Auto 3.1 % (2-4); Hematocrit 32.9 % (36-46); Hemoglobin 11.5 g/dL (12.0-16.0); Lymphocytes Absolute Auto 2200 /uL (1100-4500); Mean Corpuscular HGB Conc 34.9 % (30-36); Mean Corpuscular Hemoglobin 36.2 PG (26-34); Monocytes Absolute Auto 1100 /uL (0-900); Monocytes Percent Auto 12.8 % (3-14); Neutrophils Absolute Auto 5000 /uL (1500-7000); Neutrophils Percent Auto 57.2 % (50-75); Platelet Count 120 X10^3/uL (150-400); Red Blood Cell Count 3.17 X10^6/uL (4.0-5.2); Red Cell Distribution Width 15.6 % (11.6-14.8); White Blood Cell Count 8.7 X10^3/uL (4.5-11.0)
[2018-08-31 13:12] LABS: Alanine Aminotransferase 54 IU/L (9-52); Albumin 3.2 g/dL (3.5-5.0); Albumin Globulin Ratio 0.8 (1.0-2.8); Alkaline Phosphatase 107 U/L (38-126); Aspartate Aminotransferase 80 IU/L (14-36); BUN Creatinine Ratio 12.5 (6-22); Bilirubin Conjugated 1.1 md/dL (0.0-0.3); Bilirubin Total 6.8 mg/dL (0.2-1.3); Bilirubin Unconjugated 2.7 mg/dL (0.0-1.1); Blood Urea Nitrogen 5 mg/dL (7-17); Calcium 8.4 mg/dL (8.4-10.2); Carbon Dioxide 23 mmol/L (22-32); Chloride 103 mmol/L (98-107); Estimated Glomerular Filt Rate > 60.0 mL/min (>60); Globulin 4.1 g/dL (1.7-4.1); Glucose 73 mg/dL (70-100); HEMOLYSIS < 15 (0-50); Potassium 3.5 mmol/L (3.4-5.1); Sodium 137 mmol/L (137-145); Total Protein 7.3 g/dL (6.3-8.2)
== END ==
PROVIDERS: Family Provider Internal Medicine; PCP Internal Medicine; Visit Provider Internal Medicine
DX: R10.11 Right upper quadrant pain (principal); D69.6 Thrombocytopenia, unspecified; K70.10 Alcoholic hepatitis without ascites; K74.60 Unspecified cirrhosis of liver; D73.2 Chronic congestive splenomegaly
CPT/HCPCS: 36415; 76700; 80048; 80076; 85025

== ENCOUNTER → 2018-10-26 10:14 | Outpatient (CLI) | payer OTHER, MEDICAID, SELFPAY ==
[2018-10-26 11:03] LABS: Prothrombin Time 22.7 SECONDS (10.1-12.7)
[2018-10-26 11:07] LABS: Hematocrit 30.2 % (36-46); Hemoglobin 10.8 g/dL (12.0-16.0); Mean Corpuscular HGB Conc 35.6 % (30-36); Mean Corpuscular Hemoglobin 37.2 PG (26-34); Mean Corpuscular Volume 104.4 fL (80-100); Red Cell Distribution Width 15.8 % (11.6-14.8); White Blood Cell Count 8.8 X10^3/uL (4.5-11.0)
[2018-10-26 11:11] LABS: Alanine Aminotransferase 61 IU/L (9-52); Albumin 3.4 g/dL (3.5-5.0); Albumin Globulin Ratio 0.8 (1.0-2.8); Alkaline Phosphatase 217 U/L (38-126); Aspartate Aminotransferase 87 IU/L (14-36); BUN Creatinine Ratio 12.5 (6-22); Blood Urea Nitrogen 5 mg/dL (7-17); Calcium 9.1 mg/dL (8.4-10.2); Carbon Dioxide 26 mmol/L (22-32); Chloride 103 mmol/L (98-107); Estimated Glomerular Filt Rate > 60.0 mL/min (>60); Globulin 4.1 g/dL (1.7-4.1); Glucose 96 mg/dL (70-100); HEMOLYSIS < 15 (0-50); Potassium 3.8 mmol/L (3.4-5.1); Sodium 139 mmol/L (137-145); Total Protein 7.5 g/dL (6.3-8.2)
[2018-10-26 11:29] LABS: Platelet Count 84 X10^3/uL (150-400)
== END ==
PROVIDERS: PCP Internal Medicine Gastroenterology; Visit Provider Internal Medicine
DX: D69.6 Thrombocytopenia, unspecified (principal); K21.9 Gastro-esophageal reflux disease without esophagitis; K70.10 Alcoholic hepatitis without ascites
CPT/HCPCS: 36415; 80053; 85027; 85610

== ENCOUNTER → 2018-11-20 11:47 | Outpatient (CLI) | payer OTHER, MEDICAID, SELFPAY ==
[2018-11-20 13:01] LABS: Add Manual Diff / Slide Review NO; Basophils Absolute Auto 0 /uL (0-100); Basophils Percent Auto 0.4 % (0-2); Eosinophils Absolute Auto 300 /uL (0-450); Eosinophils Percent Auto 3.6 % (2-4); Hemoglobin 11.1 g/dL (12.0-16.0); INR 1.9 (0.9-1.3); Lymphocytes Absolute Auto 1800 /uL (1100-4500); Lymphocytes Percent Auto 23.5 % (25-40); Mean Corpuscular HGB Conc 35.8 % (30-36); Mean Corpuscular Hemoglobin 36.6 PG (26-34); Mean Corpuscular Volume 102.2 fL (80-100); Monocytes Absolute Auto 800 /uL (0-900); Monocytes Percent Auto 10.3 % (3-14); Neutrophils Absolute Auto 4700 /uL (1500-7000); Neutrophils Percent Auto 62.2 % (50-75); Prothrombin Time 22.3 SECONDS (10.1-12.7); Red Blood Cell Count 3.03 X10^6/uL (4.0-5.2); Red Cell Distribution Width 15.2 % (11.6-14.8); White Blood Cell Count 7.6 X10^3/uL (4.5-11.0)
[2018-11-20 13:03] LABS: HEMOLYSIS < 15 (0-50)
[2018-11-20 13:06] LABS: Alanine Aminotransferase 60 IU/L (9-52); Albumin 3.8 g/dL (3.5-5.0); Albumin Globulin Ratio 0.9 (1.0-2.8); Alkaline Phosphatase 278 U/L (38-126); Aspartate Aminotransferase 105 IU/L (14-36); BUN Creatinine Ratio 12.5 (6-22); Bilirubin Total 9.1 mg/dL (0.2-1.3); Blood Urea Nitrogen 5 mg/dL (7-17); Calcium 9.1 mg/dL (8.4-10.2); Carbon Dioxide 24 mmol/L (22-32); Chloride 105 mmol/L (98-107); Estimated Glomerular Filt Rate > 60.0 mL/min (>60); Globulin 4.3 g/dL (1.7-4.1); Glucose 94 mg/dL (70-100); Sodium 141 mmol/L (137-145); Total Protein 8.1 g/dL (6.3-8.2)
[2018-11-20 13:31] LABS: Platelet Count 79 X10^3/uL (150-400)
[2018-11-20 13:41] LABS: Ferritin 73.3 ng/mL (6.27-137)
[2018-11-20 13:59] LABS: Hep C Virus Ab w/Reflex Quant NEGATIVE s/c (NEGATIVE)
[2018-11-20 14:36] LABS: Hepatitis B Surface Antigen NEGATIVE s/c (NEGATIVE)
[2018-11-22 11:44] LABS: Anti Mitochondrial ABY IGG < 20.1 Units (< 20.1)
[2018-11-22 12:42] LABS: Ceruloplasmin 27 mg/dL (18-53)
[2018-11-22 13:01] LABS: Alpha 1 Anti Trypsin 192 mg/dL (83-199)
[2018-11-23 15:52] LABS: Hepatitis A Antibody Total Nonreactive (Nonreactive)
[2018-11-27 08:14] LABS: Hepatitis B Surf AB Imm QUANT < 5 mIU/mL (> 9)
== END ==
PROVIDERS: PCP Internal Medicine Gastroenterology; Visit Provider Internal Medicine Gastroenterology
DX: K70.30 Alcoholic cirrhosis of liver without ascites (principal)
CPT/HCPCS: 36415; 80053; 82103; 82390; 82728; 83516; 85025; 85610; 86255; 86317; 86708; 86803; 87340

== ENCOUNTER 2018-12-09 14:10 | Emergency (ER) | payer OTHER, MEDICAID, SELFPAY ==
[2018-12-09] VITALS (13 sets, daily range): BP systolic 95–148; BP diastolic 54–77; PULSE 92–128; RESP 16–20; TEMP 37.7; O2SAT 96–100
[2018-12-09 14:43] LABS: Add Manual Diff / Slide Review NO; Basophils Absolute Auto 100 /uL (0-100); Basophils Percent Auto 0.8 % (0-2); Eosinophils Absolute Auto 400 /uL (0-450); Eosinophils Percent Auto 4.6 % (2-4); Hematocrit 29.6 % (36-46); Hemoglobin 10.4 g/dL (12.0-16.0); Lymphocytes Absolute Auto 2300 /uL (1100-4500); Lymphocytes Percent Auto 23.9 % (25-40); Mean Corpuscular HGB Conc 35.2 % (30-36); Mean Corpuscular Hemoglobin 36.7 PG (26-34); Mean Corpuscular Volume 104.3 fL (80-100); Monocytes Absolute Auto 1300 /uL (0-900); Monocytes Percent Auto 13.3 % (3-14); Neutrophils Absolute Auto 5500 /uL (1500-7000); Neutrophils Percent Auto 57.4 % (50-75); Platelet Count 80 X10^3/uL (150-400); Red Blood Cell Count 2.84 X10^6/uL (4.0-5.2); Red Cell Distribution Width 15.3 % (11.6-14.8); White Blood Cell Count 9.6 X10^3/uL (4.5-11.0)
[2018-12-09 14:47] LABS: INR 1.8 (0.9-1.3)
[2018-12-09 14:52] LABS: Alanine Aminotransferase 55 IU/L (9-52); Albumin 3.2 g/dL (3.5-5.0); Albumin Globulin Ratio 0.8 (1.0-2.8); Alkaline Phosphatase 281 U/L (38-126); Aspartate Aminotransferase 81 IU/L (14-36); BUN Creatinine Ratio 12.5 (6-22); Bilirubin Total 8.5 mg/dL (0.2-1.3); Blood Urea Nitrogen 5 mg/dL (7-17); Calcium 8.7 mg/dL (8.4-10.2); Carbon Dioxide 23 mmol/L (22-32); Chloride 106 mmol/L (98-107); Estimated Glomerular Filt Rate > 60.0 mL/min (>60); Glucose 104 mg/dL (70-100); HEMOLYSIS < 15 (0-50); Lipase 352 U/L (23-300); Potassium 3.7 mmol/L (3.4-5.1); Sodium 139 mmol/L (137-145); Total Protein 7.2 g/dL (6.3-8.2)
[2018-12-09 15:14] LABS: Appearance Urine UA CLEAR; Bacteria Urine None Seen; Bilirubin Urine UA NEGATIVE (NEGATIVE); Color Urine UA YELLOW; Glucose Urine UA NEGATIVE (Negative); Ketones Urine UA NEGATIVE (NEGATIVE); Leukocyte Esterase Urine UA NEGATIVE (NEGATIVE); Nitrite Urine UA NEGATIVE (Negative); Occult Blood Urine UA NEGATIVE (Negative); Protein Urine UA NEGATIVE (Negative); RBC Urine None Seen (0-5/HPF); Specific Gravity Urine UA <=1.005 (1.000-1.035); WBC Urine None Seen (0-5/HPF); pH Urine UA 6.5 (4.5-8.0)
[2018-12-09 15:22] LABS: Culture Indicated Urine Cult Not Indicated; Urine Comments Microscopic Normal
--- NOTE | 2018-12-09 15:23 | ED.ABDPAIN ---
HPI - Abdominal Pain General Chief Complaint: Abdominal Pain Stated Complaint: Extremely bloated Time Seen by Provider: 12/09/18 14:28 Source: patient Mode of arrival: Ambulatory Limitations: no limitations History of Present Illness HPI narrative: Patient comes emergency complaining of progressive bloating over the last couple of weeks. Patient has a history of alcoholic liver failure, but states she has been sober for the last 5 months. She states that she is chronically jaundiced, and that this has not changed recently. However, she has noticed that her abdomen has been becoming increasingly full over the last several months, but especially over the last 2 weeks. She has never had a drainage before, because she has chronic thrombocytopenia, and her physicians never felt the risk was worth the benefit. Patient now states that the degree of distention is making it difficult for her to breathe. She denies any fevers or chills. She states she does not have abdominal pain so much as a feeling of great pressure in her abdomen. She denies any chest pain. No cough. No chills. No dysuria. No other complaints at this time. Related Data Home Medications Medication Instructions Recorded Confirmed loratadine 10 mg tablet 10 mg PO DAILY 10/06/17 10/26/18 Adult Multivitamin Gummies 1 tab PO DAILY 08/14/18 10/26/18 acidophilus-pectin, citrus 2 cap PO DAILY 08/14/18 10/26/18 [Acidophilus Probiotic] omeprazole 40 mg PO DAILY 08/14/18 10/26/18 fluticasone propionate-salmeterol 2 puff INHALATION BID 10/02/18 10/26/18 230 mcg-21 mcg/actuation HFA inhaler Previous Rx's Medication Instructions Recorded albuterol sulfate 90 mcg/actuation 2 inhalation INHALATION Q4HP PRN 10/25/17 aerosol inhaler #200 inhalation glipizide 5 mg tablet, extended 5 mg PO DAILY #30 tab 08/09/18 release 24 hr nortriptyline 25 mg capsule 25 mg PO BEDTIME #30 cap 10/26/18 fluticasone 500 mcg-salmeterol 50 1 inhalation INHALATION BID #60 11/13/18 mcg/dose blistr powdr for each inhalation Allergies Allergy/AdvReac Type Severity Reaction Status Date / Time aspirin AdvReac Verified 10/26/18 09:48 Review of Systems Constitutional Constitutional: Denies chills, Denies fatigue, Denies fever(s), Denies frequent falls, Denies lethargy and Denies weakness Eyes Eyes: Denies change in vision, Denies eye discharge, Denies irritation and Denies loss of vision ENT Ears, Nose, Mouth, and Throat: Denies change in voice, Denies dizziness, Denies neck pain, Denies sore throat and Denies throat swelling Cardiovascular Cardiovascular: Denies chest pain, Denies irregular heart rhythm, Denies lightheadedness, Denies palpitations, Denies dyspnea, Denies dyspnea on exertion and Denies orthopnea Respiratory Respiratory: Denies cough, Denies dyspnea, Denies dyspnea on exertion and Denies wheezing Gastrointestinal Gastrointestinal: Denies abdominal pain, Reports bloating, Denies change in bowel habits, Denies diarrhea, Denies nausea and Denies vomiting Genitourinary Genitourinary: Denies hematuria, Denies flank pain, Denies urinary incontinence and Denies urinary urgency Musculoskeletal Musculoskeletal: Denies back pain, Denies muscle weakness, Denies neck pain, Denies numbness and Denies tingling Integumentary/Breasts Skin/Breast: Denies pruritus, Denies erythema, Denies rash and Denies wounds Neurologic Neurologic: Denies behavioral changes, Denies confusion, Denies dizziness, Denies frequent falls, Denies loss of vision, Denies numbness, Denies tingling and Denies weakness Psychiatric Psychiatric: Denies anxiety, Denies behavioral changes, Denies confusion, Denies depression, Denies homicidal ideation and Denies suicidal ideation Endocrine Endocrine: Denies fatigue, Denies flushing and Denies palpitations Hematologic/Lymphatic Hematologic/Lymphatic: Denies easy bruising Allergic/Immunologic Allergic/Immunologic: Denies urticaria, Denies throat swelling and Denies wheezing [facility] Medical History Alcoholic hepatitis (Chronic) Alcoholism (Chronic) Alcoholism in remission (Chronic) Allergic rhinitis (Chronic) Asthma (Chronic) Asthma (Chronic) Bipolar disorder (Chronic) Chronic migraine (Chronic) Duodenal ulcer (Chronic 09/2009) Gastro-esophageal reflux (Chronic 12/31/10) Major depressive disorder, recurrent, moderate (Chronic 12/31/10) Surgical History Status post endoscopy (Resolved 09/2009) Family History Other Alcoholism Asthma Social History household members: significant other Smoking Status: Former smoker alcohol intake: former Family History Other Alcoholism Asthma Social History household members: significant other Smoking Status: Former smoker alcohol intake: former Exam Initial Vital Signs Initial Vital Signs: Vital Signs Temperature 99.9 F H 12/09/18 14:13 Pulse Rate 128 H 12/09/18 14:13 Respiratory Rate 20 12/09/18 14:13 Blood Pressure 148/77 H 12/09/18 14:13 Pulse Oximetry 98 12/09/18 14:13 Const General: cooperative and well developed Nutritional Appearance: well nourished Orientation: alert, awake, oriented x3 and not confused HENUT Head: normocephalic and atraumatic Ears: external ears normal and TM's normal bilaterally Nose: external nose normal and No nasal discharge Face and sinus: sinuses nontender, face symmetric, no sinus tenderness and No dry mucous membranes Mouth: oral mucosae normal and moist mucous membranes Teeth and gingiva: dentition normal Throat: tonsils normal and uvula midline Eyes General: appearance normal, both eyes and all related structures Eyelids: eyelids normal Conjunctivae: conjunctivae normal Sclera: sclerae normal and scleral abnormality bilaterally (Icterus) Pupils: PERRL EOM: EOM intact bilaterally Neck Neck: normal visual inspection, trachea midline, No lymphadenopathy, No midline deformity and No JVD Lymphatic: No lymphedema Chest Chest: normal inspection of the chest Resp Effort & Inspection: normal respiratory effort, able to speak in complete sentences, no respiratory distress and no use of accessory muscles Auscultation: clear to auscultation bilaterally, no rales, no rhonchi and no wheezes Cardio Rate: tachycardic Rhythm: regular rhythm Heart Sounds: no click, no gallops, murmur systolic III/ and no rubs Pulses: normal peripheral pulses Other: Patient has bounding, loud heart sounds. GI Inspection: non-distended Palpation: soft, no hepatosplenomegaly, No guarding, No pulsatile mass and No tender Auscultation: normal bowel sounds Back/Spine/Pelvis Back: No CVA tenderness Cervical Spine: cervical ROM normal and No pain with cervical ROM Thoracic/Lumbar Spine: thoracic and lumbar spine normal to inspection Skin General: no rashes or lesions noted, No jaundice and No petechiae Neuro General: alert, oriented x3, gait normal and no focal motor deficits Speech: speech normal Extrem General: full ROM, no clubbing, cyanosis or edema, no pedal edema and no calf tenderness Psych Appearance: well kempt Mental Status: mental status grossly normal Attitude: cooperative Thought Content: normal and suicidality Judgment: judgment good Procedures Paracentesis Local Anesthetic: lidocaine 2% Amount of anesthesia used (mL): 10 Fluid: clear Post Procedure Exam: awake, alert, normal BP, normal HR and normal SpO2 Patient Tolerated Procedure: Well Complications: none Course Course Course Narrative: Patient was given a L of IV fluid, which did greatly improve her heart rate, which normalized by the end of the patient's visit. She was evaluated with laboratory studies, which showed a normal white blood cell count and a platelet level of 80. She was also found to have an INR 1.8. The patient had an ultrasound of the abdomen done, which was reported as showing only a small amount of ascites, likely less than a L per animal care technician. Because of this, I did go ahead and get a CT scan of the abdomen and pelvis on the patient to further evaluate abdominal distention and discomfort. This was by my interpretation, showed a significant amount of ascites. Based on the appearance of the CT scan, I did feel that the patient should have a paracentesis done. This was done and a total of 3 L of yellow, non-cloudy fluid was drained from the patient's abdominal cavity. Patient reported feeling much better. Her heart rate was normal, and blood pressure was stable. Patient's temperature was 99.9? on arrival and was 100.0 on departure. Her fluid was sent for evaluation, though did not appear grossly infected. Her abdomen was benign on exam. Her white blood cell count was normal. At this point in time, I do not find evidence of spontaneous bacterial peritonitis. We have discussed home management of the symptoms, as well as the usual indications for return. Orders Ordered: ED Orders 12/09/18 14:30 Test Serum,Qual Stat 12/09/18 14:36 Complete Blood Count AUTO DIFF Stat Comprehensive Metabolic Panel Stat Lipase Stat Prothrombin Time INR Stat 12/09/18 14:52 EKG-12 Lead Stat 12/09/18 15:10 Urinalysis and Microscopic Stat 12/09/18 15:30 US abdomen limited Stat 12/09/18 16:09 CT abdomen pelvis w con Stat 12/09/18 18:40 Cell Count w Diff Body Fluid Stat LDH Body Fluid Stat 12/09/18 19:30 Body Fluid Culture Stat Discontinued Medications Sodium Chloride (Normal Saline 0.9%) 1,000 mls @ 1,000 mls/hr IV BOLUS ONE Stop: 12/09/18 17:08 Last Infusion: 12/09/18 17:40 Dose: 0 mls/hr Documented by: Infusion: 12/09/18 17:08 Dose: 0 mls/hr Documented by: Admin: 12/09/18 16:19 Dose: 1,000 mls/hr Documented by: DEMAR Midazolam HCl (Versed) 1 mg IV NOW ONE Stop: 12/09/18 18:15 Last Admin: 12/09/18 18:20 Dose: 1 mg Documented by: DEMAR Vital Signs Vital signs: Vital Signs - 8 hr 12/09/18 14:13 12/09/18 15:23 12/09/18 15:57 Temperature 99.9 F H Pulse Rate 128 H 111 H 104 H Respiratory Rate 20 16 16 Blood Pressure 148/77 H Blood Pressure [Right Arm] 127/67 112/65 Pulse Oximetry 98 100 98 12/09/18 16:53 12/09/18 18:15 12/09/18 18:25 Temperature Pulse Rate 95 H 99 H 93 H Respiratory Rate 16 16 Blood Pressure Blood Pressure [Right Arm] 106/63 104/62 95/57 L Pulse Oximetry 98 98 96 12/09/18 18:30 12/09/18 18:40 12/09/18 18:45 Temperature Pulse Rate 95 H 95 H 96 H Respiratory Rate 16 16 18 Blood Pressure Blood Pressure [Right Arm] 103/56 L 95/58 L 95/62 Pulse Oximetry 99 99 97 12/09/18 18:50 12/09/18 18:55 12/09/18 19:01 Temperature Pulse Rate 94 H 92 H 94 H Respiratory Rate 16 16 Blood Pressure Blood Pressure [Right Arm] 101/54 L 108/55 L 102/55 L Pulse Oximetry 96 96 98 12/09/18 19:20 Temperature 100 F H Pulse Rate Respiratory Rate Blood Pressure Blood Pressure [Right Arm] Pulse Oximetry MDM - Abdominal Pain Medical Records Attestation: I reviewed the patient's medical records. Lab Data Attestation: I reviewed the patient's lab results. Result diagrams: 12/09/18 14:36 12/09/18 14:36 Labs: Lab Results 12/09/18 12/09/18 12/09/18 Range/Units 14:30 14:36 14:36 WBC 9.6 (4.5-11.0) X10^3/uL RBC 2.84 L (4.0-5.2) X10^6/uL Hgb 10.4 L (12.0-16.0) g/dL Hct 29.6 L (36-46) % MCV 104.3 H (80-100) fL MCH 36.7 H (26-34) PG MCHC 35.2 (30-36) % RDW 15.3 H (11.6-14.8) % Plt Count 80 L (150-400) X10^3/uL Neut % (Auto) 57.4 (50-75) % Lymph % (Auto) 23.9 L (25-40) % [place] % (Auto) 13.3 (3-14) % Eos % (Auto) 4.6 H (2-4) % Baso % (Auto) 0.8 (0-2) % Neut # (Auto) 5500 (3796-7670) /uL Lymph # (Auto) 2300 (8472-5182) /uL [place] # (Auto) 1300 H (0-900) /uL Eos # (Auto) 400 (0-450) /uL Baso # (Auto) 100 (0-100) /uL PT 21.0 H (10.1-12.7) SECONDS INR 1.8 H (0.9-1.3) Sodium (137-145) mmol/L Potassium (3.4-5.1) mmol/L Chloride (98-107) mmol/L Carbon Dioxide (22-32) mmol/L BUN (7-17) mg/dL Creatinine (0.52-1.04) mg/dL Estimated GFR (>60) mL/min BUN/Creatinine Ratio (6-22) Glucose (70-100) mg/dL Calcium (8.4-10.2) mg/dL Total Bilirubin (0.2-1.3) mg/dL AST (14-36) IU/L ALT (9-52) IU/L Alkaline Phosphatase (38-126) U/L Total Protein (6.3-8.2) g/dL Albumin (3.5-5.0) g/dL Globulin (1.7-4.1) g/dL Albumin/Globulin Ratio (1.0-2.8) Lipase (23-300) U/L Serum , Qual Negative (Negative) Urine Color Urine Appearance Urine pH (4.5-8.0) Ur Specific [place] (1.000-1.035) Urine Protein (Negative) Urine Glucose (UA) (Negative) g/dL Urine Ketones (NEGATIVE) Urine Occult Blood (Negative) Urine Nitrate (Negative) Urine Bilirubin (NEGATIVE) Urine Urobilinogen (0.2) E.U./dL Ur Leukocyte Esterase (NEGATIVE) Urine RBC (0-5/HPF) Urine WBC (0-5/HPF) Urine Bacteria (None) Ur Culture Indicated? Micro UA Comment 12/09/18 12/09/18 Range/Units 14:36 15:10 WBC (4.5-11.0) X10^3/uL RBC (4.0-5.2) X10^6/uL Hgb (12.0-16.0) g/dL Hct (36-46) % MCV (80-100) fL MCH (26-34) PG MCHC (30-36) % RDW (11.6-14.8) % Plt Count (150-400) X10^3/uL Neut % (Auto) (50-75) % Lymph % (Auto) (25-40) % [place] % (Auto) (3-14) % Eos % (Auto) (2-4) % Baso % (Auto) (0-2) % Neut # (Auto) (6603-4786) /uL Lymph # (Auto) (0129-7408) /uL [place] # (Auto) (0-900) /uL Eos # (Auto) (0-450) /uL Baso # (Auto) (0-100) /uL PT (10.1-12.7) SECONDS INR (0.9-1.3) Sodium 139 (137-145) mmol/L Potassium 3.7 (3.4-5.1) mmol/L Chloride 106 (98-107) mmol/L Carbon Dioxide 23 (22-32) mmol/L BUN 5 L (7-17) mg/dL Creatinine 0.40 L (0.52-1.04) mg/dL Estimated GFR > 60.0 (>60) mL/min BUN/Creatinine Ratio 12.5 (6-22) Glucose 104 H (70-100) mg/dL Calcium 8.7 (8.4-10.2) mg/dL Total Bilirubin 8.5 H (0.2-1.3) mg/dL AST 81 H (14-36) IU/L ALT 55 H (9-52) IU/L Alkaline Phosphatase 281 H (38-126) U/L Total Protein 7.2 (6.3-8.2) g/dL Albumin 3.2 L (3.5-5.0) g/dL Globulin 4.0 (1.7-4.1) g/dL Albumin/Globulin Ratio 0.8 L (1.0-2.8) Lipase 352 H (23-300) U/L Serum , Qual (Negative) Urine Color Yellow Urine Appearance Clear Urine pH 6.5 (4.5-8.0) Ur Specific [place] <=1.005 (1.000-1.035) Urine Protein Negative (Negative) Urine Glucose (UA) Negative (Negative) g/dL Urine Ketones Negative (NEGATIVE) Urine Occult Blood Negative (Negative) Urine Nitrate Negative (Negative) Urine Bilirubin Negative (NEGATIVE) Urine Urobilinogen 1.0 (0.2) E.U./dL Ur Leukocyte Esterase Negative (NEGATIVE) Urine RBC None seen (0-5/HPF) Urine WBC None seen (0-5/HPF) Urine Bacteria None seen (None) Ur Culture Indicated? Cult not indicated Micro UA Comment Microscopic normal Point of care testing: Point of Care Testing Test Results Negative Imaging Data CT scan - abdomen: Radiologist's impression: PROCEDURE: CT ABDOMEN PELVIS W CON INDICATIONS: abdominal distension, pain TECHNIQUE: After the administration of intravenous contrast, 5 mm thick sections acquired from the diaphragm to the symphysis. 5 mm coronal and sagittal reformats were acquired. For radiation dose reduction, the following was used: automated exposure control, adjustment of mA and/or kV according to patient size. COMPARISON: [facility], US, US ABDOMEN LIMITED, 12/09/2018, 16:01. [facility], US, US ABDOMEN COMPLETE, 08/31/2018, 12:01. [facility], US, US ABDOMEN LIMITED, 08/14/2018, 21:25. [facility], CT, CT ABDOMEN PELVIS W CON, 07/14/2018, 11:14. FINDINGS: Image quality: Excellent. ABDOMEN: Lung bases: Lung bases are clear. Heart size is normal. Solid organs: A cirrhotic liver is seen, with small size and a nodular contour. There is recanalization of the umbilical vein seen, with periumbilical varices. Gastroesophageal varices are also seen. The spleen is enlarged, measuring nearly 17 cm craniocaudally. A [id number] amount of ascites is seen. Gallbladder has been removed. Biliary system is non dilated. Pancreas enhances normally. No adrenal nodules. Kidneys demonstrate normal size and enhancement, without hydronephrosis. Peritoneum and bowel: Diffuse wall thickening and mild hyperenhancement can be of the small bowel. No significant colonic wall thickening is seen. No free air. Diverticulosis is seen, without findings of active diverticulitis. Incidental note is made of a normal-appearing appendix. Nodes and vessels: No retroperitoneal or mesenteric adenopathy by size criteria. Aorta and inferior vena cava are normal in size. Miscellaneous: No ventral hernias. PELVIS: Genitourinary: Bladder wall thickness is normal. Miscellaneous: No inguinal hernias or adenopathy. Bones: No suspicious bony lesions. No vertebral body compression fractures. Focal L4-L5 degenerative change is seen. Milder degenerative changes are seen elsewhere. Mild levoconvex scoliotic curvature is noted. IMPRESSION: Mild to moderate ascites is seen. Liver cirrhosis with portal venous hypertension, with a recanalized umbilical vein with periumbilical varices, gastroesophageal varices, and splenomegaly. Diffuse wall thickening of hyperenhancement can be seen on small bowel castro. This may be related to the ascites. However, please correlate with potential underlying enteritis. Incidental note is made of: Cholecystectomy Focal L4-L5 degenerative change Normal appendix Diverticulosis is seen, without findings of active diverticulitis. Dictated by: Rufino Bagley M.D. on 12/09/2018 at 16:50 Approved by: Rufino Bagley M.D. on 12/09/2018 at 16:56 US - abdomen: Radiologist's impression: PROCEDURE: US ABDOMEN LIMITED INDICATIONS: ASCITES TECHNIQUE: Real-time focused scanning was performed of the abdomen, with image documentation. COMPARISON: [facility], US, US ABDOMEN COMPLETE, 08/31/2018, 12:01. [facility], US, US ABDOMEN LIMITED, 08/14/2018, 21:25. [facility], CT, CT ABDOMEN PELVIS W CON, 07/14/2018, 11:14. FINDINGS: A mild degree of ascites is seen. The right lower quadrant was marked for paracentesis. The distance from the skin to the ascites is 1 cm. When the patient is supine, there was not a significant amount of ascites seen within either lower quadrant. IMPRESSION: Right lower quadrant marked for paracentesis. A mild amount of ascites is seen. Note: Concordant preliminary findings given by the station superintendent upon the completion of the examination to Dr. Kuo. Dictated by: Rufino Bagley M.D. on 12/09/2018 at 15:33 Approved by: Rufino Bagley M.D. on 12/09/2018 at 15:37 Discharge Plan Departure Patient Disposition: Home Clinical Impression: End stage liver disease, Ascites due to chronic alcoholic hepatitis, S/P abdominal paracentesis Discharge Date/Time: 12/09/18 19:31 Instructions: DI for Cirrhosis Activity Restrictions/Additional Instructions: We have taken 3 L of fluid out of your abdominal cavity. This will likely slowly build up again, but hopefully this process will be gradual. If you develop fevers or abdominal pain, please seek re-evaluation without delay. Prescriptions: No Action albuterol sulfate [Ventolin HFA] 90 mcg/actuation HFA aerosol inhaler 2 inhalation INHALATION Q4HP PRN (Reason: shortness of breath or wheezing) Qty: 200 RF: 0 glipizide 5 mg tablet extended release 24hr 5 mg PO DAILY Qty: 30 RF: 3 fluticasone propion-salmeterol 230-21 mcg/actuation HFA aerosol inhaler 2 puff INHALATION BID RF: 0 loratadine [Claritin] 10 mg tablet 10 mg PO DAILY RF: 0 nortriptyline 25 mg capsule 25 mg PO BEDTIME Qty: 30 RF: 3 fluticasone propion-salmeterol [Advair Diskus] 500-50 mcg/dose blister with device 1 inhalation INHALATION BID Qty: 60 RF: 11 omeprazole 20 mg Capsule,Delayed Release(Dr/Ec) 40 mg PO DAILY RF: 0 acidophilus-pectin, citrus [Acidophilus Probiotic] 100 million cell-10 mg Capsule 2 cap PO DAILY RF: 0 Adult Multivitamin Gummies 200 mcg Tablet,Chewable 1 tab PO DAILY RF: 0 Referrals: Nahum Oakley MD [Primary Care Provider] -
--- NOTE | 2018-12-09 15:30 | DI.US.S_ITS ---
PROCEDURE: US ABDOMEN LIMITED INDICATIONS: ASCITES TECHNIQUE: Real-time focused scanning was performed of the abdomen, with image documentation. COMPARISON: [facility], US, US ABDOMEN COMPLETE, 08/31/2018, 12:01. [facility], US, US ABDOMEN LIMITED, 08/14/2018, 21:25. [facility], CT, CT ABDOMEN PELVIS W CON, 07/14/2018, 11:14. FINDINGS: A mild degree of ascites is seen. The right lower quadrant was marked for paracentesis. The distance from the skin to the ascites is 1 cm. When the patient is supine, there was not a significant amount of ascites seen within either lower quadrant. IMPRESSION: Right lower quadrant marked for paracentesis. A mild amount of ascites is seen. Note: Concordant preliminary findings given by the reinforcing steel placer upon the completion of the examination to Dr. Kuo. Dictated by: Rufino Bagley M.D. on 12/09/2018 at 15:33 Approved by: Rufino Bagley M.D. on 12/09/2018 at 15:37
--- NOTE | 2018-12-09 16:09 | DI.CT.S_ITS ---
PROCEDURE: CT ABDOMEN PELVIS W CON INDICATIONS: abdominal distension, pain TECHNIQUE: After the administration of intravenous contrast, 5 mm thick sections acquired from the diaphragm to the symphysis. 5 mm coronal and sagittal reformats were acquired. For radiation dose reduction, the following was used: automated exposure control, adjustment of mA and/or kV according to patient size. COMPARISON: [facility], US, US ABDOMEN LIMITED, 12/09/2018, 16:01. [facility], US, US ABDOMEN COMPLETE, 08/31/2018, 12:01. [facility], US, US ABDOMEN LIMITED, 08/14/2018, 21:25. [facility], CT, CT ABDOMEN PELVIS W CON, 07/14/2018, 11:14. FINDINGS: Image quality: Excellent. ABDOMEN: Lung bases: Lung bases are clear. Heart size is normal. Solid organs: A cirrhotic liver is seen, with small size and a nodular contour. There is recanalization of the umbilical vein seen, with periumbilical varices. Gastroesophageal varices are also seen. The spleen is enlarged, measuring nearly 17 cm craniocaudally. A [id number] amount of ascites is seen. Gallbladder has been removed. Biliary system is non dilated. Pancreas enhances normally. No adrenal nodules. Kidneys demonstrate normal size and enhancement, without hydronephrosis. Peritoneum and bowel: Diffuse wall thickening and mild hyperenhancement can be of the small bowel. No significant colonic wall thickening is seen. No free air. Diverticulosis is seen, without findings of active diverticulitis. Incidental note is made of a normal-appearing appendix. Nodes and vessels: No retroperitoneal or mesenteric adenopathy by size criteria. Aorta and inferior vena cava are normal in size. Miscellaneous: No ventral hernias. PELVIS: Genitourinary: Bladder wall thickness is normal. Miscellaneous: No inguinal hernias or adenopathy. Bones: No suspicious bony lesions. No vertebral body compression fractures. Focal L4-L5 degenerative change is seen. Milder degenerative changes are seen elsewhere. Mild levoconvex scoliotic curvature is noted. IMPRESSION: Mild to moderate ascites is seen. Liver cirrhosis with portal venous hypertension, with a recanalized umbilical vein with periumbilical varices, gastroesophageal varices, and splenomegaly. Diffuse wall thickening of hyperenhancement can be seen on small bowel castro. This may be related to the ascites. However, please correlate with potential underlying enteritis. Incidental note is made of: Cholecystectomy Focal L4-L5 degenerative change Normal appendix Diverticulosis is seen, without findings of active diverticulitis. Dictated by: Rufino Bagley M.D. on 12/09/2018 at 16:50 Approved by: Rufino Bagley M.D. on 12/09/2018 at 16:56
[2018-12-09] MEDS: SODIUM CHLORIDE 0.9% 1,000 ML 1000 ML IV (16:19)
[2018-12-09 16:58] LABS: Pregnancy Test Serum,Qual Negative (Negative)
[2018-12-09] MEDS: MIDAZOLAM 2 MG/2 ML VIAL 1 MG IV (18:20)
[2018-12-09 19:44] LABS: LDH Body Fluid 171 U/L
[2018-12-09 19:50] LABS: Body Fluid Red Blood Cells 1041 /uL; Body Fluid Tot Nucleated Cells 205 /uL
[2018-12-09 20:25] LABS: Body Fluid Appearance SLIGHTLY CLOUDY; Body Fluid Clotted? NO CLOTS PRESENT; Body Fluid Color YELLOW; Eosinophils Body Fluid 1 %; Mononuclear WBC Body Fluid 85 %; Other Cells Body Fluid 5 %; Polynuclear WBC Body Fluid 9 %
== END 2018-12-09 19:31 | disposition home or self-care (01) ==
PROVIDERS: Emergency Provider Emergency Medicine; PCP Internal Medicine
DX: K72.90 Hepatic failure, unspecified without coma (principal); K70.11 Alcoholic hepatitis with ascites; R00.0 Tachycardia, unspecified; R14.0 Abdominal distension (gaseous)
CPT/HCPCS: 36415; 49082; 74177; 76705; 80053; 81001; 83615; 83690; 84703; 85025; 85610; 87070; 87075; 87205; 89051; 93005; 96361; 96374; 99285; J2250; Q9967

== ENCOUNTER → 2018-12-27 09:33 | Outpatient (CLI) | payer OTHER, MEDICAID, SELFPAY ==
[2018-12-27 11:02] LABS: INR 1.8 (0.9-1.3); Prothrombin Time 21.5 SECONDS (10.1-12.7)
[2018-12-27 11:13] LABS: Blood Urea Nitrogen 10 mg/dL (7-17); Calcium 9.4 mg/dL (8.4-10.2); Carbon Dioxide 26 mmol/L (22-32); Chloride 100 mmol/L (98-107); Estimated Glomerular Filt Rate > 60.0 mL/min (>60); Glucose 108 mg/dL (70-100); HEMOLYSIS < 15 (0-50); Magnesium 1.5 mg/dL (1.6-2.3); Potassium 4.3 mmol/L (3.4-5.1); Sodium 136 mmol/L (137-145)
== END ==
PROVIDERS: PCP Internal Medicine; Visit Provider Internal Medicine
DX: K70.11 Alcoholic hepatitis with ascites (principal)
CPT/HCPCS: 36415; 80048; 83735; 85610

== ENCOUNTER → 2019-01-02 14:23 | Outpatient (CLI) | payer OTHER, MEDICAID, SELFPAY ==
[2019-01-02 16:28] LABS: Alanine Aminotransferase 55 IU/L (9-52); Albumin 3.5 g/dL (3.5-5.0); Albumin Globulin Ratio 0.9 (1.0-2.8); Alkaline Phosphatase 461 U/L (38-126); Aspartate Aminotransferase 74 IU/L (14-36); Bilirubin Total 7.4 mg/dL (0.2-1.3); Blood Urea Nitrogen 13 mg/dL (7-17); Calcium 9.3 mg/dL (8.4-10.2); Carbon Dioxide 22 mmol/L (22-32); Chloride 100 mmol/L (98-107); Estimated Glomerular Filt Rate > 60.0 mL/min (>60); Glucose 91 mg/dL (70-100); HEMOLYSIS < 15 (0-50); Potassium 4.9 mmol/L (3.4-5.1); Sodium 135 mmol/L (137-145); Total Protein 7.5 g/dL (6.3-8.2)
== END ==
PROVIDERS: Family Provider Internal Medicine; PCP Internal Medicine; Visit Provider Internal Medicine Gastroenterology
DX: K70.30 Alcoholic cirrhosis of liver without ascites (principal)
CPT/HCPCS: 36415; 80053

== ENCOUNTER → 2019-01-10 11:16 | Outpatient (CLI) | payer OTHER, MEDICAID, SELFPAY ==
[2019-01-10 12:51] LABS: Alanine Aminotransferase 77 IU/L (<35); Albumin 3.5 g/dL (3.5-5.0); Albumin Globulin Ratio 0.9 (1.0-2.8); Alkaline Phosphatase 490 U/L (38-126); Aspartate Aminotransferase 118 IU/L (14-36); Bilirubin Total 7.5 mg/dL (0.2-1.3); Blood Urea Nitrogen 18 mg/dL (7-17); Calcium 9.2 mg/dL (8.4-10.2); Carbon Dioxide 25 mmol/L (22-32); Chloride 96 mmol/L (98-107); Estimated Glomerular Filt Rate > 60.0 mL/min (>60); Globulin 3.8 g/dL (1.7-4.1); Glucose 152 mg/dL (70-100); HEMOLYSIS < 15 (0-50); Potassium 4.6 mmol/L (3.4-5.1); Sodium 132 mmol/L (137-145); Total Protein 7.3 g/dL (6.3-8.2)
== END ==
PROVIDERS: PCP Internal Medicine; Visit Provider Internal Medicine Gastroenterology
DX: K70.10 Alcoholic hepatitis without ascites (principal); K70.30 Alcoholic cirrhosis of liver without ascites
CPT/HCPCS: 36415; 80053

== ENCOUNTER → 2019-01-11 08:10 | Outpatient (CLI) | payer OTHER, MEDICAID, SELFPAY ==
--- NOTE | 2019-01-11 | DI.MRI.S_ITS ---
PROCEDURE: MR ABDOMEN WO/W CON INDICATIONS: Alcoholic cirrhosis of liver without ascites TECHNIQUE: Coronal HASTE, axial 2D FLASH in- and [id number]; axial breath-hold T2 FSE. Dynamic axial VIBE during the administration of contrast; post-contrast coronal VIBE or 2D FLASH with fat saturation from the hepatic dome to the iliac crests. Optional diffusion weighted imaging and ADC may be performed. COMPARISON: CT abdomen and pelvis 12/09/2018. FINDINGS: Image quality: Excellent. Lung bases: No basal pleural effusions. Heart size is normal. Solid organs: Cirrhotic morphology. No significant fat deposition. No arterial hyperenhancing foci or washout. No restricted diffusion. Gallbladder is absent. Biliary system is non dilated. Pancreas is normal in morphology. No pancreatic ductal dilatation. Splenomegaly measuring 15.6 cm. No adrenal nodules. Both kidneys demonstrate normal size and enhancement, without hydronephrosis. No renal mass. Nodes and vessels: No retroperitoneal or mesenteric adenopathy by size criteria. Conventional and patent hepatic arterial anatomy. Recannulization of the paraumbilical vein. Multiple upper abdominal and paraesophageal varices, (14/21). No filling defect in the portal vein. Hepatic veins are patent. Bowel and peritoneum: No small bowel obstruction. Bowel wall thickening of loops of small bowel in the left abdomen which most likely reflects portal hypertensive enteropathy. Large volume of ascites. Bones and soft tissues: No ventral hernias. Bone marrow is normal in overall signal. IMPRESSION: 1. Cirrhosis, splenomegaly, portal hypertension with paraesophageal varices. Large volume of ascites. 2. No LR4 or LR5 observations to suggest HCC. Recommend continued screening for HCC. 3. Preserved left small bowel portal hypertensive enteropathy. Dictated by: Ernie Ferguson M.D. on 01/11/2019 at 11:26 Approved by: Ernie Ferguson M.D. on 01/11/2019 at 11:38
== END ==
PROVIDERS: PCP Internal Medicine; Visit Provider Internal Medicine Gastroenterology
DX: K70.31 Alcoholic cirrhosis of liver with ascites (principal); K76.6 Portal hypertension; I85.10 Secondary esophageal varices without bleeding; R16.1 Splenomegaly, not elsewhere classified; Z90.49 Acquired absence of other specified parts of digestive tract
CPT/HCPCS: 74183; A9579

== ENCOUNTER → 2019-01-17 10:05 | Outpatient (CLI) | payer OTHER, MEDICAID, SELFPAY ==
[2019-01-17 12:01] LABS: Alanine Aminotransferase 107 IU/L (<35); Albumin 3.3 g/dL (3.5-5.0); Albumin Globulin Ratio 0.8 (1.0-2.8); Alkaline Phosphatase 458 U/L (38-126); Aspartate Aminotransferase 134 IU/L (14-36); BUN Creatinine Ratio 25.7 (6-22); Bilirubin Total 8.2 mg/dL (0.2-1.3); Blood Urea Nitrogen 18 mg/dL (7-17); Calcium 9.5 mg/dL (8.4-10.2); Carbon Dioxide 24 mmol/L (22-32); Chloride 95 mmol/L (98-107); Estimated Glomerular Filt Rate > 60.0 mL/min (>60); Globulin 3.9 g/dL (1.7-4.1); Glucose 92 mg/dL (70-100); HEMOLYSIS < 15 (0-50); Potassium 4.4 mmol/L (3.4-5.1); Sodium 128 mmol/L (137-145); Total Protein 7.2 g/dL (6.3-8.2)
== END ==
PROVIDERS: Family Provider Internal Medicine; PCP Internal Medicine; Visit Provider Internal Medicine Gastroenterology
DX: K70.30 Alcoholic cirrhosis of liver without ascites (principal)
CPT/HCPCS: 36415; 80053

== ENCOUNTER 2019-02-13 13:52 | Day surgery (SDC) | payer OTHER, MEDICAID, SELFPAY ==
[2019-02-13] VITALS (7 sets, daily range): BP systolic 82–106; BP diastolic 42–57; PULSE 82–95; RESP 12–17; TEMP 37.1–37.2; O2SAT 97–99; BMI 24.0
--- NOTE | 2019-02-13 15:52 | PM.HP.1 ---
History of Present Illness History of Present Illness Chief complaint: [id number] EGD W/POSS BX Patient History Medical History Alcoholic hepatitis (Chronic) Alcoholism (Chronic) Alcoholism in remission (Chronic) Allergic rhinitis (Chronic) Asthma (Chronic) Asthma (Chronic) Bipolar disorder (Chronic) Bruises easily (Acute) Chronic migraine (Chronic) Dizziness (Acute) Duodenal ulcer (Chronic 09/2009) 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) Former smoker (Acute) Gastro-esophageal reflux (Chronic 12/31/10) Hepatitis (Acute) History of UTI (Acute) Major depressive disorder, recurrent, moderate (Chronic 12/31/10) Seizure (Acute ~07/11/18) Surgical History History of cholecystectomy (Acute) Status post endoscopy (Resolved 09/2009) Family & Social History Family History Other Alcoholism Asthma Social History: household members significant other Tobacco & Substance use: Tobacco type e-cigarettes Smoking Status Former smoker alcohol intake former alcohol intake frequency 0-2 drinks per day Substance Use Type does not use Meds Home Medications and Allergies Home Medications Medication Instructions Recorded Confirmed Type Adult Multivitamin Gummies 1 tab PO DAILY 08/14/18 02/13/19 History nortriptyline 25 mg capsule 25 mg PO BEDTIME #30 cap 10/26/18 02/13/19 Rx fluticasone 500 mcg-salmeterol 50 1 inhalation INHALATION BID #60 11/13/18 02/13/19 Rx mcg/dose blistr powdr for each inhalation spironolactone 100 mg tablet 100 mg PO TID #360 tab 01/24/19 02/13/19 Rx furosemide 40 mg PO BID 02/13/19 02/13/19 History Allergies Allergy/AdvReac Type Severity Reaction Status Date / Time aspirin AdvReac Verified 02/13/19 14:29 Review of Systems Review of Systems ROS Unobtainable: All systems reviewed & are unremarkable except as noted in HPI and below Exam Vital Signs (past 8 hours): - 02/13/19 14:35 Temperature 98.8 F Pulse Rate 89 Respiratory Rate 12 Blood Pressure 96/55 L Pulse Oximetry 98 Oxygen Delivery Method Room Air Narrative Exam Narrative: Awake alert oriented x3, no acute distress, scleral icterus, expiratory wheeze bilaterally, heart regular rate and rhythm, no lower extremity edema Assessment & Plan Assessment & Plan narrative: History of cirrhosis, rule out varices, for EGD
--- NOTE | 2019-02-13 16:05 | P.OP.ENDO_ITS ---
Operative Date/Time/Diagnoses Date of procedure: 02/13/19 Procedure & Clinicians Study performed: EGD Indications: History of alcoholic cirrhosis, need to rule out varices Monitored anesthesia care was administered and supervised by the staff anesthesiologist. Procedure Notes Procedure in detail: Prior to the procedure, history and physical was performed, and patient medications and allergies were reviewed. Preprocedure nursing history and assessment was reviewed. Patient identification and proposed procedure were verified by the physician and nurse in the procedure room. The physical status of the patient was reassessed after the procedure. After informed consent was obtained including risks, benefits, and alternatives, the scope was passed under direct vision. Throughout the procedure, the patient's blood pressure, pulse, and oxygen saturations were monitored continuously. The upper endoscope was introduced through the mouth and advanced to the 2nd portion of the duodenum. Retroflexion was performed in the stomach. The patient tolerated the procedure well. Two isolated tongues of salmon-colored mucosa, the longest of which measured 3 cm, extended above the GE junction. This was suspicious for Bella's esophagus. Biopsies not taken given history of coagulopathy and thrombocytopenia. Top of suspected intestinal metaplasia located at 32 cm. Top of gastric folds located at 35 cm. At the cardia/GE junction, there was an area of fullness and mucosal congestion. There was no obvious evidence of esophageal or gastric varices. Moderately severe portal hypertensive gastropathy noted in the cardia, fundus, and proximal body. The examined duodenum was normal appearing. 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 Biopsies not taken due to bleeding risk. Fullness and congestion at the GE junction/cardia. No obvious varices noted. Portal hypertensive gastropathy Normal appearing duodenum No specimens taken Complications: other (EBL minimal, no complications) Post-procedure Plan for aftercare: Anti-reflux diet and lifestyle Consider daily PPI use Resume home medications Follow up in GI clinic to decide on timing of next EGD for Bella's surveillance and for management of liver disease Discharge home with escort
--- NOTE | 2019-02-13 16:21 | SUR.PHASEI ---
to PACU, awake, asking questions, denies dizziness, light headedness, discomfort. Resp even and regular. Tolerating juice well.Resp unlabored.
--- NOTE | 2019-02-13 17:12 | SUR.PREOP ---
900 ml IV fluid infused.
== END 2019-02-13 16:48 | disposition home or self-care (01) ==
PROVIDERS: Family Provider Internal Medicine; PCP Internal Medicine; Visit Provider Internal Medicine
PROC: 0DJ08ZZ Inspection of Upper Intestinal Tract, Via Natural or Artificial Opening Endoscopic (ICD-10-PCS; CPT 43235; principal; 2019-02-13 15:00)
DX: K70.30 Alcoholic cirrhosis of liver without ascites (principal); K70.10 Alcoholic hepatitis without ascites; F10.11 Alcohol abuse, in remission; E11.9 Type 2 diabetes mellitus without complications; Z79.84 Long term (current) use of oral hypoglycemic drugs; K76.6 Portal hypertension; K31.89 Other diseases of stomach and duodenum
CPT/HCPCS: 43235; J2704; J3010

== ENCOUNTER → 2019-03-01 16:34 | Outpatient (CLI) | payer OTHER, MEDICAID, SELFPAY ==
[2019-02-28 13:29] VITALS: BMI 27.5
[2019-03-01 17:32] LABS: Hemoglobin A1C% w Est Avg Glu 4.6 % (4.0-6.0)
[2019-03-01 17:36] LABS: Alanine Aminotransferase 101 IU/L (<35); Albumin 3.4 g/dL (3.5-5.0); Alkaline Phosphatase 507 U/L (38-126); Aspartate Aminotransferase 146 IU/L (14-36); BUN Creatinine Ratio 27.8 (6-22); Bilirubin Total 6.6 mg/dL (0.2-1.3); Blood Urea Nitrogen 25 mg/dL (7-17); Calcium 9.2 mg/dL (8.4-10.2); Carbon Dioxide 19 mmol/L (22-32); Chloride 100 mmol/L (98-107); Estimated Glomerular Filt Rate > 60.0 mL/min (>60); Globulin 3.4 g/dL (1.7-4.1); Glucose 101 mg/dL (70-100); HEMOLYSIS < 15 (0-50); Sodium 129 mmol/L (137-145); Total Protein 6.8 g/dL (6.3-8.2)
[2019-03-01 18:16] LABS: Add Manual Diff / Slide Review NO; Basophils Absolute Auto 0 /uL (0-100); Basophils Percent Auto 0.4 % (0-2); Eosinophils Absolute Auto 200 /uL (0-450); Eosinophils Percent Auto 2.4 % (2-4); Hematocrit 26.7 % (36-46); Hemoglobin 9.4 g/dL (12.0-16.0); Lymphocytes Absolute Auto 1800 /uL (1100-4500); Lymphocytes Percent Auto 19.2 % (25-40); Mean Corpuscular HGB Conc 35.1 % (30-36); Mean Corpuscular Hemoglobin 36.9 PG (26-34); Mean Corpuscular Volume 105.2 fL (80-100); Monocytes Absolute Auto 1200 /uL (0-900); Monocytes Percent Auto 12.6 % (3-14); Neutrophils Absolute Auto 6000 /uL (1500-7000); Neutrophils Percent Auto 65.4 % (50-75); Red Blood Cell Count 2.54 X10^6/uL (4.0-5.2); Red Cell Distribution Width 15.1 % (11.6-14.8); White Blood Cell Count 9.2 X10^3/uL (4.5-11.0)
[2019-03-01 18:17] LABS: Platelet Count 97 X10^3/uL (150-400)
[2019-03-02 14:50] LABS: HEMOLYSIS < 15 (0-50); Iron 154 ug/dL (37-170); Lactate Dehydrogenase 842 U/L (313-618)
[2019-03-02 15:01] LABS: Percent Iron Saturation 41 % (15-50); Total Iron Binding Capacity 380 ug/dL (265-497); Transferrin 305 mg/dL (206-381)
[2019-03-02 15:10] LABS: Reticulocyte Count, Percent 6.4 % (1.06-2.63)
[2019-03-02 15:26] LABS: Ferritin 67.2 ng/mL (6.27-137)
[2019-03-02 15:57] LABS: Folate 15.7 ng/mL (2.76-20.0); Vitamin B12 > 1000 pg/mL (239-931)
== END ==
PROVIDERS: PCP Internal Medicine; Visit Provider Student in an Organized Health Care Education/Training Program
DX: R73.9 Hyperglycemia, unspecified (principal); K70.10 Alcoholic hepatitis without ascites; K70.11 Alcoholic hepatitis with ascites; Z79.899 Other long term (current) drug therapy; D53.9 Nutritional anemia, unspecified
CPT/HCPCS: 36415; 80053; 82607; 82728; 82746; 83036; 83540; 83550; 83615; 85025; 85045

== ENCOUNTER 2019-04-03 13:31 | Day surgery (SDC) | payer OTHER, MEDICAID, SELFPAY ==
[2019-02-28 13:29] VITALS: BMI 27.5
--- NOTE | 2019-04-03 11:36 | PM.HP.1 ---
History of Present Illness History of Present Illness Date Patient Seen: 04/03/19 Chief complaint: [id number] EGD W/POSS BX Narrative: 43-year-old female with a history of chronic alcohol abuse and presumed alcohol cirrhosis who I had seen at our office on 11/20/2018 due to alcoholic hepatitis. In the interim since that visit the patient has had bouts of bloody stools and is here for further evaluation. On further questioning today, the patient states that she has been having frequent epistaxis and has not seen an ENT since prior to her alcoholic hepatitis episode. She denies any amna hematemesis, amna melena, or hematochezia Patient History Family & Social History Social History: household members significant other Tobacco & Substance use: Tobacco type e-cigarettes Smoking Status Former smoker alcohol intake former alcohol intake frequency 0-2 drinks per day Substance Use Type does not use Meds Home Medications and Allergies Home Medications Medication Instructions Recorded Confirmed Type Adult Multivitamin Gummies 1 tab PO DAILY 08/14/18 04/03/19 History nortriptyline 25 mg capsule 25 mg PO BEDTIME #30 cap 10/26/18 04/03/19 Rx fluticasone 500 mcg-salmeterol 50 1 inhalation INHALATION BID #60 11/13/18 04/03/19 Rx mcg/dose blistr powdr for each inhalation spironolactone 100 mg tablet 100 mg PO TID #360 tab 01/24/19 04/03/19 Rx furosemide 40 mg tablet 40 mg PO Q OTHER DAY tab 03/03/19 04/03/19 History Allergies Allergy/AdvReac Type Severity Reaction Status Date / Time aspirin AdvReac Unknown Verified 04/03/19 14:06 Exam Narrative Exam Narrative: General: Patient is thin, not in apparent distress Cardiovascular: Regular rate and rhythm, no murmurs, rubs, or gallops; no evidence of edema; no palpable abdominal aortic aneurysm Gastrointestinal: Normoactive bowel sounds, soft, nontender, no rebound tenderness, no hepatosplenomegaly, no evidence of hernia Assessment & Plan Assessment & Plan narrative: 43-year-old female with history of chronic alcohol abuse and presumed alcohol cirrhosis who had a bout of alcoholic hepatitis when I had seen her last in November 2018 who is here for further evaluation of episodic GI bleeding and anemia Regarding the procedure(s), the risks and potential complications, benefits, and alternatives (including not doing the procedure) were discussed with the patient. The risks include but are not limited to bleeding, splenic injury, infection, perforation which may require surgical intervention, missed lesions, and adverse reactions to sedative medicines. After a question and answer period, the patient agreed to proceed with the procedure(s) and gives informed consent.
[2019-04-03 14:15] VITALS: BP 105/66; PULSE 89; RESP 16; TEMP 36.4; O2SAT 100; BMI 25.4
[2019-04-03] MEDS: SODIUM CHLORIDE 0.9% 1,000 ML 70 ML IV (14:24)
--- NOTE | 2019-04-03 15:11 | P.OP.ENDO_ITS ---
Operative Date/Time/Diagnoses Date of procedure: 04/03/19 Procedure Notes Procedure in detail: Surgeon: Misael Quintanilla MD Procedure: Esophagogastroduodenoscopy Preoperative diagnosis: Anemia, history of melena Postoperative diagnosis: Grade 1 esophageal varix; mild portal hypertensive gastropathy; probable Bella's esophagus. I suspect that the recurrent episodes of epistaxis are contributing to her anemia rather than any GI bleeding Medications: Monitored anesthesia care due to severe comorbidities of alcohol cirrhosis/alcoholic hepatitis; see Anesthesia record Preanesthesia Assessment An H and P was performed/updated and the Px?s ASA class is 3. The procedure was discussed in detail with the patient. The potential risks and complications including infection, bleeding, missed lesions, perforation, need for surgery in case of perforation, prolonged hospital stay, and were explained. A brief question and answer period was allotted and once all questions were answered, informed consent was obtained. The patient was brought back to the procedure room and placed on standard monitoring. The patient?s vital signs were monitored continuously throughout the entire procedure. Prior to starting, a timeout was performed to confirm the patient?s identity, allergies, medications, and procedure. Procedure in detail The patient was placed in left lateral decubitus position and a bite block was inserted. The tip of the upper endoscope was placed into the mouth and advanced without difficulty under direct visualization into the esophagus. Esophagus: There was note of probable Bella's esophagus in the distal 3rd spanning from 35-39 cm from the incisors. C2M2; no biopsy was done due to the presence of a grade 1 esophageal varix in close proximity. There was 1 column of a small esophageal varix which flattened with insufflation. There was no ev idence of any high risk stigmata. Stomach: There is evidence of mild portal hypertensive gastropathy involving the fundus and proximal body. There was no evidence of gastric varices Duodenum: The visualized duodenum up to the 2nd portion was normal The patient tolerated the procedure well and will be brought back to the recovery area to be discharged once criteria are met. Complications There were no complications and estimated blood loss was zero. Recommendations: Continue low-sodium diet Anti-reflux measures at all times You can consider using omeprazole as needed for any heartburn symptoms Continue outPx medications Follow up pathology results Follow-up with ENT as an outpatient to address recurrence nosebleeds We will refer you to [facility] ( or [facility] liver transplant) Call our office ([facility]) to schedule follow-up An emergency contact number was given to the patient for any complications related to the procedure
[2019-04-03 15:31] VITALS: BP 102/62; PULSE 101; RESP 10; TEMP 36.4; O2SAT 97
[2019-04-03 15:35] VITALS: BP 99/60; PULSE 99; RESP 11; O2SAT 97
[2019-04-03 15:40] VITALS: BP 104/60; PULSE 103; RESP 15; O2SAT 98
[2019-04-03 15:52] VITALS: BP 107/63; PULSE 93; RESP 15; TEMP 36.2; O2SAT 98
== END 2019-04-03 16:08 | disposition home or self-care (01) ==
PROVIDERS: PCP Internal Medicine; Visit Provider Internal Medicine Gastroenterology
PROC: 0DJ08ZZ Inspection of Upper Intestinal Tract, Via Natural or Artificial Opening Endoscopic (ICD-10-PCS; CPT 43235; principal; 2019-04-03 15:00)
DX: K76.6 Portal hypertension (principal); K31.89 Other diseases of stomach and duodenum; D64.9 Anemia, unspecified; K70.10 Alcoholic hepatitis without ascites; F10.11 Alcohol abuse, in remission
CPT/HCPCS: 43235; J3010

== ENCOUNTER 2019-04-06 09:27 | Emergency (ER) | payer OTHER, MEDICAID, SELFPAY ==
[2019-02-28 13:29] VITALS: BMI 27.5
[2019-04-06] VITALS (8 sets, daily range): BP systolic 103–118; BP diastolic 51–62; PULSE 92–122; RESP 12–18; TEMP 36.8; O2SAT 99–100; BMI 25.2
--- NOTE | 2019-04-06 09:42 | DI.RAD.S_ITS ---
PROCEDURE: XR CHEST 1V INDICATIONS: suspected sepsis TECHNIQUE: One view of the chest was acquired. COMPARISON: [facility], RG, XR CXR 2V, 03/21/2006, 10:42. [facility], CR, XR CHEST 2V, 10/20/2017, 10:44. [facility], CR, XR CHEST 1V, 08/14/2018, 19:29. FINDINGS: Surgical changes and devices: None. Lungs and pleura: An incomplete inspiratory result is noted, causing a crowded appearance to the lung markings. No focal infiltrates are seen. No pneumothorax or significant pleural effusions are seen. Mediastinum: Mediastinal contours appear normal. Heart size is normal. Bones and chest wall: No suspicious bony lesions. Overlying soft tissues appear unremarkable. IMPRESSION: Limited portable chest examination, without a significant cardiopulmonary abnormality identified. As clinically appropriate, a short-term followup chest series (with PA and lateral views) performed in deep inspiration is suggested for further evaluation. Dictated by: Rufino Bagley M.D. on 04/06/2019 at 9:38 Approved by: Rufino Bagley M.D. on 04/06/2019 at 9:39
[2019-04-06 09:54] LABS: Add Manual Diff / Slide Review NO; Basophils Absolute Auto 0 /uL (0-100); Basophils Percent Auto 0.5 % (0-2); Eosinophils Absolute Auto 200 /uL (0-450); Eosinophils Percent Auto 2.5 % (2-4); Hematocrit 28.4 % (36-46); Hemoglobin 10.2 g/dL (12.0-16.0); Lymphocytes Absolute Auto 1900 /uL (1100-4500); Lymphocytes Percent Auto 25.8 % (25-40); Mean Corpuscular Hemoglobin 37.2 PG (26-34); Mean Corpuscular Volume 103.4 fL (80-100); Monocytes Absolute Auto 1100 /uL (0-900); Monocytes Percent Auto 14.9 % (3-14); Neutrophils Absolute Auto 4000 /uL (1500-7000); Neutrophils Percent Auto 56.3 % (50-75); Platelet Count 96 X10^3/uL (150-400); Red Blood Cell Count 2.75 X10^6/uL (4.0-5.2); Red Cell Distribution Width 15.3 % (11.6-14.8); White Blood Cell Count 7.2 X10^3/uL (4.5-11.0)
[2019-04-06 10:01] LABS: Alanine Aminotransferase 85 IU/L (<35); Albumin 3.5 g/dL (3.5-5.0); Alkaline Phosphatase 437 U/L (38-126); Ammonia (NH3) 147 umol/L (9-30); Aspartate Aminotransferase 108 IU/L (14-36); BUN Creatinine Ratio 35.7 (6-22); Bilirubin Total 4.6 mg/dL (0.2-1.3); Blood Urea Nitrogen 25 mg/dL (7-17); Calcium 9.3 mg/dL (8.4-10.2); Carbon Dioxide 19 mmol/L (22-32); Chloride 98 mmol/L (98-107); Estimated Glomerular Filt Rate > 60.0 mL/min (>60); Globulin 3.6 g/dL (1.7-4.1); Glucose 138 mg/dL (70-100); HEMOLYSIS < 15 (0-50); Lipase 360 U/L (23-300); Potassium 4.5 mmol/L (3.4-5.1); Sodium 130 mmol/L (137-145); Total Protein 7.1 g/dL (6.3-8.2)
[2019-04-06 10:02] LABS: Lactate (Lactic Acid) 3.3 mmol/L (0.7-2.1)
[2019-04-06 10:03] LABS: PTT Partial Thromboplastin Tim 39 SECONDS (26.4-36.2)
[2019-04-06 10:22] LABS: INR 1.4 (0.9-1.3); Prothrombin Time 16.5 SECONDS (10.1-12.7)
[2019-04-06 10:23] LABS: Procalcitonin 0.34 ng/mL (<0.5)
--- NOTE | 2019-04-06 10:39 | ED.WEAKNESS ---
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 Has not drank for the past 9 months. Does see a GI doctor [facility]. Earlier this week underwent a upper endoscopy. Also has had paracentesis in the past over the last was in December of last year. Here for evaluation of dizziness and shaky. According to no reviewed appears that she has had this in the past of she states that this morning the episode was much more intense than what it has been in the past. Does appear to have a more often in the morning. She has had recent changes (increase) in her diuretic medication. Potentially some confusion however patient feels that it is more unsteadiness and room spinning sensation. She also feels like her arms were shaking. She states she is taking all of her medications. Related Data Home Medications Medication Instructions Recorded Confirmed Adult Multivitamin Gummies 1 tab PO DAILY 08/14/18 04/06/19 furosemide 40 mg tablet 80 mg PO BID tab 03/03/19 04/06/19 lactulose 30 ml PO QAM 04/06/19 04/06/19 Previous Rx's Medication Instructions Recorded nortriptyline 25 mg capsule 25 mg PO BEDTIME #30 cap 10/26/18 spironolactone 100 mg tablet 100 mg PO TID #360 tab 01/24/19 meclizine 25 mg PO TID PRN #10 tab 04/06/19 Allergies Allergy/AdvReac Type Severity Reaction Status Date / Time aspirin AdvReac Unknown Verified 04/03/19 14:06 Review of Systems Constitutional Constitutional: Reports fatigue, Denies fever(s) and Denies headache(s) ENT Ears, Nose, Mouth, and Throat: Reports vertigo, Reports dizziness, Denies headache(s) and Reports disequilibrium Cardiovascular Cardiovascular: Denies chest pain, Denies syncope, Denies leg edema and Denies dyspnea Respiratory Respiratory: Denies cough, Denies dyspnea and Denies wheezing Gastrointestinal Gastrointestinal: Denies abdominal pain, Denies change in stool character, Denies nausea and Denies vomiting Genitourinary Genitourinary: Denies dysuria Musculoskeletal Musculoskeletal: Denies myalgias and Denies arthralgias Integumentary/Breasts Skin/Breast: Denies lesions and Denies rash Neurologic Neurologic: Denies abnormal speech, Reports vertigo, Reports dizziness, Denies syncope, Denies headache(s), Reports tremor(s) and Reports disequilibrium Endocrine Endocrine: Reports fatigue Hematologic/Lymphatic Hematologic/Lymphatic: Denies easy bleeding and Denies easy bruising Allergic/Immunologic Allergic/Immunologic: Denies wheezing Patient History Medical History Alcoholic hepatitis (Chronic) Alcoholism (Chronic) Alcoholism in remission (Chronic) Allergic rhinitis (Chronic) Asthma (Chronic) Asthma (Chronic) Bipolar disorder (Chronic) Bruises easily (Acute) Chronic migraine (Chronic) Dizziness (Acute) Duodenal ulcer (Chronic 09/2009) 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) Former smoker (Acute) Gastro-esophageal reflux (Chronic 12/31/10) Hepatitis (Acute) History of UTI (Acute) Major depressive disorder, recurrent, moderate (Chronic 12/31/10) Seizure (Acute ~07/11/18) Social History household members: significant other Smoking Status: Former smoker alcohol intake: former Smoking Status: Former smoker alcohol intake frequency: 0-2 drinks per day Substance Use Type: does not use Exam Initial Vital Signs Initial Vital Signs: Vital Signs Temperature 98.3 F 04/06/19 09:30 Pulse Rate 122 H 04/06/19 09:30 Respiratory Rate 14 04/06/19 09:30 Blood Pressure 118/57 L 04/06/19 09:30 Pulse Oximetry 100 04/06/19 09:30 Const General: cooperative, comfortable and well developed Limitations: mental status not altered [facility] Head: normal to inspection and normocephalic Eyes Sclera: scleral abnormality bilaterally (Jaundice) Resp Effort & Inspection: normal respiratory effort Auscultation: clear to auscultation bilaterally Cardio Rate: tachycardic Rhythm: regular rhythm Pulses: radial pulses present GI Inspection: non-distended Palpation: soft and No firm Skin General: jaundice Neuro General: alert, awake and oriented x3 Cranial Nerves: CN's II-XI intact bilaterally Speech: speech normal Sensory Exam: no sensory deficits noted Extrem General: normal to inspection and capillary refill normal Psych Appearance: grossly normal and well kempt Course Orders Ordered: ED Orders 04/06/19 09:35 Ammonia (NH3) Stat Complete Blood Count AUTO DIFF Stat Comprehensive Metabolic Panel Stat Lactate (Lactic Acid) Stat Lipase Stat Partial Thromboplastin Time Stat Procalcitonin Stat Prothrombin Time INR Stat 04/06/19 09:42 XR chest 1V Stat EKG-12 Lead Stat RT Consult Eval and Treat Now 04/06/19 10:00 Blood Culture Stat 04/06/19 11:15 Urine Culture Stat Urine Microscopic Stat Discontinued Medications Sodium Chloride (Normal Saline 0.9%) 1,000 mls @ 1,000 mls/hr IV BOLUS ONE Stop: 04/06/19 10:41 Last Infusion: 04/06/19 12:48 Dose: 0 mls/hr Documented by: Infusion: 04/06/19 12:13 Dose: 250 mls/hr Documented by: Infusion: 04/06/19 11:10 Dose: 100 mls/hr Documented by: Admin: 04/06/19 11:09 Dose: 1,000 mls/hr Documented by: JESSICA Vital Signs Vital signs: Vital Signs - 8 hr 04/06/19 09:30 04/06/19 09:45 04/06/19 10:00 Temperature 98.3 F Pulse Rate 122 H 111 H 109 H Respiratory Rate 14 14 14 Blood Pressure 118/57 L Blood Pressure [Right Arm] 114/61 115/62 Pulse Oximetry 100 100 04/06/19 10:15 04/06/19 10:30 04/06/19 10:45 Temperature Pulse Rate 105 H 100 H 104 H Respiratory Rate 13 12 14 Blood Pressure Blood Pressure [Right Arm] 110/60 112/55 L 111/57 L Pulse Oximetry 04/06/19 11:39 04/06/19 12:16 Temperature Pulse Rate 94 H 92 H Respiratory Rate 18 18 Blood Pressure Blood Pressure [Right Arm] 105/51 L 103/58 L Pulse Oximetry 99 100 MDM - Weakness Lab Data Result diagrams: 04/06/19 09:35 04/06/19 09:35 Labs: Lab Results 04/06/19 04/06/19 04/06/19 Range/Units 09:35 09:35 09:35 WBC 7.2 (4.5-11.0) X10^3/uL RBC 2.75 L (4.0-5.2) X10^6/uL Hgb 10.2 L (12.0-16.0) g/dL Hct 28.4 L (36-46) % MCV 103.4 H (80-100) fL MCH 37.2 H (26-34) PG MCHC 36.0 (30-36) % RDW 15.3 H (11.6-14.8) % Plt Count 96 L (150-400) X10^3/uL Neut % (Auto) 56.3 (50-75) % Lymph % (Auto) 25.8 (25-40) % [place] % (Auto) 14.9 H (3-14) % Eos % (Auto) 2.5 (2-4) % Baso % (Auto) 0.5 (0-2) % Neut # (Auto) 4000 (5666-3486) /uL Lymph # (Auto) 1900 (8039-6112) /uL [place] # (Auto) 1100 H (0-900) /uL Eos # (Auto) 200 (0-450) /uL Baso # (Auto) 0 (0-100) /uL PT 16.5 H (10.1-12.7) SECONDS INR 1.4 H (0.9-1.3) APTT 39 H D (26.4-36.2) SECONDS Sodium (137-145) mmol/L Potassium (3.4-5.1) mmol/L Chloride (98-107) mmol/L Carbon Dioxide (22-32) mmol/L BUN (7-17) mg/dL Creatinine (0.52-1.04) mg/dL Estimated GFR (>60) mL/min BUN/Creatinine Ratio (6-22) Glucose (70-100) mg/dL Lactate (0.7-2.1) mmol/L Calcium (8.4-10.2) mg/dL Total Bilirubin (0.2-1.3) mg/dL AST (14-36) IU/L ALT (<35) IU/L Alkaline Phosphatase (38-126) U/L Ammonia (9-30) umol/L Total Protein (6.3-8.2) g/dL Albumin (3.5-5.0) g/dL Globulin (1.7-4.1) g/dL Albumin/Globulin Ratio (1.0-2.8) Lipase (23-300) U/L Procalcitonin 0.34 (<0.5) ng/mL Urine RBC (0-5/HPF) Urine WBC (0-5/HPF) Ur Squamous Epith Cells (0-5/HPF) Urine Bacteria (None) Ur Culture Indicated? 04/06/19 04/06/19 04/06/19 Range/Units 09:35 09:35 09:35 WBC (4.5-11.0) X10^3/uL RBC (4.0-5.2) X10^6/uL Hgb (12.0-16.0) g/dL Hct (36-46) % MCV (80-100) fL MCH (26-34) PG MCHC (30-36) % RDW (11.6-14.8) % Plt Count (150-400) X10^3/uL Neut % (Auto) (50-75) % Lymph % (Auto) (25-40) % [place] % (Auto) (3-14) % Eos % (Auto) (2-4) % Baso % (Auto) (0-2) % Neut # (Auto) (5968-4406) /uL Lymph # (Auto) (3796-6028) /uL [place] # (Auto) (0-900) /uL Eos # (Auto) (0-450) /uL Baso # (Auto) (0-100) /uL PT (10.1-12.7) SECONDS INR (0.9-1.3) APTT (26.4-36.2) SECONDS Sodium 130 L (137-145) mmol/L Potassium 4.5 (3.4-5.1) mmol/L Chloride 98 (98-107) mmol/L Carbon Dioxide 19 L (22-32) mmol/L BUN 25 H (7-17) mg/dL Creatinine 0.70 (0.52-1.04) mg/dL Estimated GFR > 60.0 (>60) mL/min BUN/Creatinine Ratio 35.7 H (6-22) Glucose 138 H (70-100) mg/dL Lactate 3.3 H (0.7-2.1) mmol/L Calcium 9.3 (8.4-10.2) mg/dL Total Bilirubin 4.6 H (0.2-1.3) mg/dL AST 108 H (14-36) IU/L ALT 85 H (<35) IU/L Alkaline Phosphatase 437 H (38-126) U/L Ammonia 147 H (9-30) umol/L Total Protein 7.1 (6.3-8.2) g/dL Albumin 3.5 (3.5-5.0) g/dL Globulin 3.6 (1.7-4.1) g/dL Albumin/Globulin Ratio 1.0 (1.0-2.8) Lipase 360 H (23-300) U/L Procalcitonin (<0.5) ng/mL Urine RBC (0-5/HPF) Urine WBC (0-5/HPF) Ur Squamous Epith Cells (0-5/HPF) Urine Bacteria (None) Ur Culture Indicated? 04/06/19 04/06/19 Range/Units 11:15 11:59 WBC (4.5-11.0) X10^3/uL RBC (4.0-5.2) X10^6/uL Hgb (12.0-16.0) g/dL Hct (36-46) % MCV (80-100) fL MCH (26-34) PG MCHC (30-36) % RDW (11.6-14.8) % Plt Count (150-400) X10^3/uL Neut % (Auto) (50-75) % Lymph % (Auto) (25-40) % [place] % (Auto) (3-14) % Eos % (Auto) (2-4) % Baso % (Auto) (0-2) % Neut # (Auto) (8886-6598) /uL Lymph # (Auto) (3931-6215) /uL [place] # (Auto) (0-900) /uL Eos # (Auto) (0-450) /uL Baso # (Auto) (0-100) /uL PT (10.1-12.7) SECONDS INR (0.9-1.3) APTT (26.4-36.2) SECONDS Sodium (137-145) mmol/L Potassium (3.4-5.1) mmol/L Chloride (98-107) mmol/L Carbon Dioxide (22-32) mmol/L BUN (7-17) mg/dL Creatinine (0.52-1.04) mg/dL Estimated GFR (>60) mL/min BUN/Creatinine Ratio (6-22) Glucose (70-100) mg/dL Lactate 1.1 (0.7-2.1) mmol/L Calcium (8.4-10.2) mg/dL Total Bilirubin (0.2-1.3) mg/dL AST (14-36) IU/L ALT (<35) IU/L Alkaline Phosphatase (38-126) U/L Ammonia (9-30) umol/L Total Protein (6.3-8.2) g/dL Albumin (3.5-5.0) g/dL Globulin (1.7-4.1) g/dL Albumin/Globulin Ratio (1.0-2.8) Lipase (23-300) U/L Procalcitonin (<0.5) ng/mL Urine RBC None seen (0-5/HPF) Urine WBC 0-1/hpf (0-5/HPF) Ur Squamous Epith Cells None seen (0-5/HPF) Urine Bacteria Many (>30) H (None) Ur Culture Indicated? Specimen cultured Point of Care Testing Test Results Negative Urine Dip Bedside Urine Glucose Negative Bedside Urine Bilirubin - Negative Bedside Urine Ketone - Negative Urine Specific [place] 1.015 Bedside Urine Occult Blood - Negative Bedside Urine pH 6.5 Bedside Urine Protein - Negative Bedside Urine Urobilinogen +/- 1mg Bedside Urine Nitrite + Positive Bedside Urine Leukocytes +/- 15 Esterase Imaging Data Chest x-ray: Radiologist Impression: [address] [address] XRay Report Signed Patient: Lanny Ashby EMR#: [id number] : 1975Acct:[id number] Age/Sex: 43 / FDate of Service: 04/06/19 Loc: ED Accession Number: [id number] Procedure: XR chest 1V Ordering Provider: Black Caicedo D.O. PROCEDURE: XR CHEST 1V INDICATIONS: suspected sepsis TECHNIQUE: One view of the chest was acquired. COMPARISON: [facility], XR CXR [facility]V, 03[facility]21[facility]2006[facility] 10[facility], [facility] 10[facility]44. [facility], CR, XR CHEST 1V, 08/14/2018, 19:29. FINDINGS: Surgical changes and devices: None. Lungs and pleura: An incomplete inspiratory result is noted, causing a crowded appearance to the lung markings. No focal infiltrates are seen. No pneumothorax or significant pleural effusions are seen. Mediastinum: Mediastinal contours appear normal. Heart size is normal. Bones and chest wall: No suspicious bony lesions. Overlying soft tissues appear unremarkable. IMPRESSION: Limited portable chest examination, without a significant cardiopulmonary abnormality identified. As clinically appropriate, a short-term followup chest series (with PA and lateral views) performed in deep inspiration is suggested for further evaluation. Dictated by: Rufino Bagley M.D. on 04/06/2019 at 9:38 Approved by: Rufino Bagley M.D. on 04/06/2019 at 9:39 ECG Data Attestation: I personally reviewed and interpreted this ECG as follows: Prior ECG tracings: not available for review Interpretation: Sinus tachycardia Ventricular rate of 111 Normal axis Normal QRS Normal QTC No ST T wave changes MDM Narrative Medical decision making narrative: Patient does have nitrite positive here and has no urinary symptoms. She has known cirrhosis. Her LFTs are at baseline. Does have an elevated ammonia level which could be contributing to her vertigo another balance issues however she is tolerating oral intake. She would rather take her lactulose at home. She does have a refill of this. Upon further questioning she potentially has not taken it for the past 5 days. Do not feel that she needs admitted to the hospital in order for her to take the lactulose. We will wait for the urine culture to return before starting her on any antibiotics. Did have an elevated lactate but I suspect that this was a hydration issue. She was clinically somewhat dehydrated with dry lips. Was given fluids. Will send home with meclizine. She does have a component of vertigo to her symptoms. Low suspicion for CVA. Patient was given return precautions and follow-up instructions. She expressed understanding and agreement with plan. Discharge Plan Departure Patient Disposition: Home Clinical Impression: Vertigo, Increased ammonia level Cirrhosis Qualifiers: Hepatic cirrhosis type: alcoholic cirrhosis Ascites presence: without ascites Qualified Code(s): K70.30 - Alcoholic cirrhosis of liver without ascites Instructions: DI for Vertigo Activity Restrictions/Additional Instructions: We checked it you do have a refill of lactulose. I recommend that you fill it and start taking it as directed. Like we discussed a urine culture was pending at the time your discharge. We will contact you to start any antibiotic if needed. Take the rest your medications as directed. Recommend you contact your primary provider and your GI provider for follow-up. Return to the emergency department for any new or worsening symptoms. The meclizine was electronically transmitted to [facility] Prescriptions: New meclizine 25 mg tablet 25 mg PO TID PRN (Reason: dizziness) Qty: 10 RF: 0 No Action nortriptyline 25 mg capsule 25 mg PO BEDTIME Qty: 30 RF: 3 furosemide 40 mg tablet 80 mg PO BID RF: 0 Hold Instructions: Volume depletion spironolactone 100 mg tablet 100 mg PO TID Qty: 360 RF: 3 Adult Multivitamin Gummies 200 mcg Tablet,Chewable 1 tab PO DAILY RF: 0 lactulose 10 gram/15 mL solution 30 ml PO QAM RF: 0 Referrals: Nahum Oakley [Other]
[2019-04-06] MEDS: SODIUM CHLORIDE 0.9% 1,000 ML 1000 ML IV (11:09)
[2019-04-06 11:30] LABS: RBC Urine None Seen (0-5/HPF)
[2019-04-06 11:43] LABS: Bacteria Urine Many (>30); Culture Indicated Urine Specimen Cultured; Squamous Epithelial Cell Urine None Seen (0-5/HPF); WBC Urine 0-1/HPF (0-5/HPF)
[2019-04-06 11:47] LABS: Reflexed Lactate in 2 Hours Y
[2019-04-06 12:19] LABS: Lactate 2HR (Lactic Acid Rflx) 1.1 mmol/L (0.7-2.1)
== END 2019-04-06 13:16 | disposition home or self-care (01) ==
PROVIDERS: Emergency Provider Emergency Medicine
DX: R42 Dizziness and giddiness (principal); K70.30 Alcoholic cirrhosis of liver without ascites; R79.89 Other specified abnormal findings of blood chemistry; R00.0 Tachycardia, unspecified
CPT/HCPCS: 36415; 71045; 80053; 81003; 81015; 81025; 82140; 83605; 83690; 84145; 85025; 85610; 85730; 87040; 87077; 87086; 87186; 93005; 96360; 96361; 99285

== ENCOUNTER → 2019-04-17 14:14 | Outpatient (CLI) | payer OTHER, MEDICAID, SELFPAY ==
[2019-02-28 13:29] VITALS: BMI 27.5
[2019-04-17 14:40] LABS: INR 1.6 (0.9-1.3); Prothrombin Time 18.1 SECONDS (10.1-12.7)
[2019-04-17 14:50] LABS: Ammonia (NH3) 69 umol/L (9-30)
[2019-04-17 15:58] LABS: Alanine Aminotransferase 95 IU/L (<35); Albumin 3.1 g/dL (3.5-5.0); Albumin Globulin Ratio 0.9 (1.0-2.8); Alkaline Phosphatase 600 U/L (38-126); Aspartate Aminotransferase 114 IU/L (14-36); BUN Creatinine Ratio 31.4 (6-22); Bilirubin Conjugated 0.2 md/dL (0.0-0.3); Bilirubin Unconjugated 2.9 mg/dL (0.0-1.1); Blood Urea Nitrogen 22 mg/dL (7-17); Carbon Dioxide 22 mmol/L (22-32); Chloride 99 mmol/L (98-107); Estimated Glomerular Filt Rate > 60.0 mL/min (>60); Globulin 3.4 g/dL (1.7-4.1); Glucose 132 mg/dL (70-100); HEMOLYSIS < 15 (0-50); Sodium 130 mmol/L (137-145); Total Protein 6.5 g/dL (6.3-8.2)
== END ==
PROVIDERS: Referring Provider Internal Medicine; Visit Provider Internal Medicine
DX: K70.11 Alcoholic hepatitis with ascites (principal); K74.60 Unspecified cirrhosis of liver; R79.89 Other specified abnormal findings of blood chemistry
CPT/HCPCS: 36415; 80053; 80076; 82140; 85610

== ENCOUNTER → 2019-05-21 16:13 | Outpatient (CLI) | payer OTHER, MEDICAID, SELFPAY ==
[2019-02-28 13:29] VITALS: BMI 27.5
[2019-05-21 16:48] LABS: Hemoglobin A1C% w Est Avg Glu 4.9 % (4.0-6.0)
[2019-05-21 16:52] LABS: Ammonia (NH3) 80 umol/L (9-30)
[2019-05-21 17:09] LABS: Alanine Aminotransferase 101 IU/L (<35); Albumin 3.3 g/dL (3.5-5.0); Alkaline Phosphatase 382 U/L (38-126); Aspartate Aminotransferase 103 IU/L (14-36); BUN Creatinine Ratio 19.8 (6-22); Bilirubin Conjugated 0.3 md/dL (0.0-0.3); Bilirubin Total 5.6 mg/dL (0.2-1.3); Bilirubin Unconjugated 3.4 mg/dL (0.0-1.1); Blood Urea Nitrogen 19 mg/dL (7-17); Calcium 9.2 mg/dL (8.4-10.2); Carbon Dioxide 19 mmol/L (22-32); Chloride 93 mmol/L (98-107); Estimated Glomerular Filt Rate > 60.0 mL/min (>60); Globulin 3.3 g/dL (1.7-4.1); Glucose 184 mg/dL (70-100); HEMOLYSIS < 15 (0-50); Sodium 123 mmol/L (137-145); Total Protein 6.6 g/dL (6.3-8.2)
[2019-05-21 17:10] LABS: Potassium 5.5 mmol/L (3.4-5.1)
== END ==
PROVIDERS: Internal Medicine; Referring Provider Internal Medicine Gastroenterology; Visit Provider Internal Medicine Gastroenterology
DX: K70.30 Alcoholic cirrhosis of liver without ascites (principal); K21.9 Gastro-esophageal reflux disease without esophagitis; K70.10 Alcoholic hepatitis without ascites; K70.11 Alcoholic hepatitis with ascites; R73.9 Hyperglycemia, unspecified
CPT/HCPCS: 36415; 80053; 80076; 82140; 83036

== ENCOUNTER 2019-05-24 23:18 | Emergency (ER) | payer OTHER, MEDICAID, SELFPAY ==
[2019-02-28 13:29] VITALS: BMI 27.5
[2019-05-24 23:26] VITALS: BP 115/56; PULSE 84; RESP 15; TEMP 36.6; O2SAT 100; BMI 24.2
[2019-05-25 00:38] LABS: Ammonia (NH3) 66 umol/L (9-30)
[2019-05-25 00:42] LABS: Add Manual Diff / Slide Review NO; Basophils Absolute Auto 100 /uL (0-100); Basophils Percent Auto 0.9 % (0-2); Eosinophils Absolute Auto 800 /uL (0-450); Eosinophils Percent Auto 6.4 % (2-4); Hematocrit 25.3 % (36-46); Hemoglobin 8.8 g/dL (12.0-16.0); Lymphocytes Absolute Auto 2100 /uL (1100-4500); Lymphocytes Percent Auto 17.2 % (25-40); Mean Corpuscular HGB Conc 34.7 % (30-36); Mean Corpuscular Hemoglobin 35.6 PG (26-34); Mean Corpuscular Volume 102.6 fL (80-100); Monocytes Absolute Auto 2200 /uL (0-900); Monocytes Percent Auto 18.6 % (3-14); Neutrophils Absolute Auto 6900 /uL (1500-7000); Neutrophils Percent Auto 56.9 % (50-75); Platelet Count 102 X10^3/uL (150-400); Red Blood Cell Count 2.46 X10^6/uL (4.0-5.2); Red Cell Distribution Width 15.3 % (11.6-14.8); White Blood Cell Count 12.1 X10^3/uL (4.5-11.0)
[2019-05-25 00:45] LABS: Alanine Aminotransferase 98 IU/L (<35); Albumin 3.2 g/dL (3.5-5.0); Alkaline Phosphatase 373 U/L (38-126); Aspartate Aminotransferase 93 IU/L (14-36); BUN Creatinine Ratio 24.6 (6-22); Bilirubin Total 4.9 mg/dL (0.2-1.3); Blood Urea Nitrogen 17 mg/dL (7-17); Carbon Dioxide 18 mmol/L (22-32); Chloride 95 mmol/L (98-107); Estimated Glomerular Filt Rate > 60.0 mL/min (>60); Globulin 3.3 g/dL (1.7-4.1); Glucose 194 mg/dL (70-100); HEMOLYSIS < 15 (0-50); Lipase 536 U/L (23-300); Potassium 5.2 mmol/L (3.4-5.1); Sodium 121 mmol/L (137-145); Total Protein 6.5 g/dL (6.3-8.2)
--- NOTE | 2019-05-25 00:58 | ED_ITS ---
HPI - Abdominal Pain General Chief Complaint: Abdominal Pain Stated Complaint: patient states extreme stomach pain x2hr Time Seen by Provider: 05/25/19 00:28 Source: patient Mode of arrival: Wheelchair Limitations: no limitations History of Present Illness HPI narrative: HPI: The patient is a 43-year-old female that presents to the emergency department with midepigastric abdominal pain. She states that she developed pain and discomfort early this morning at 9:00 a.m.. She states that she was seen by her primary care physician and the dose of lactulose was increased. This occurred yesterday. This morning she woke up and was unable to stand up because she was dizzy lightheaded wobbling week exhausted and had no energy. The patient continued to have abdominal pain which they thought was secondary to constipation. The patient's administered a shower enema without any improvement. The patient had bowel movements without blood or melena. She denied having any fever chills or sweats. She however felt short of breath without any cough. She denied any significant chest pain racing of the heart palpitations. Her abdominal pain became worse and she developed vomiting that was primarily dry heaves. She did not have any hematemesis coffee-ground emesis or bilious emesis. She remained intensely nauseous. She did not have any diarrhea. She denied any urinary symptoms. She states that her pain is sharp and crampy and is 10/10 in intensity. She states that she had peptic ulcer disease 10 years ago. She has had her gallbladder removed. She denies a history of pancreatitis diabetes mellitus hypertension stroke myocardial infarction but admits to history of asthma. She quit smoking several months ago and then switched to vaping and then quit vaping in December. She states that she has not drank alcohol in 14 months. 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 She denies HIV or being exposed to anyone with known roe virus. She has not traveled outside the [place]. She states that she has both esophageal and gastric varices but has not had a TIPS procedure. Related Data Home Medications Medication Instructions Recorded Confirmed Adult Multivitamin Gummies 1 tab PO DAILY 08/14/18 05/24/19 furosemide 20 mg tablet 40 mg PO BID tab 04/11/19 05/24/19 fluticasone 500 mcg-salmeterol 50 1 inhalation INHALATION DAILY each 05/24/19 05/24/19 mcg/dose blistr powdr for inhalation Previous Rx's Medication Instructions Recorded nortriptyline 25 mg capsule 25 mg PO BEDTIME #30 cap 10/26/18 spironolactone 100 mg tablet 100 mg PO TID #360 tab 01/24/19 meclizine 25 mg PO TID PRN #10 tab 04/06/19 clotrimazole-betamethasone 1 1 applictn TOP BID #45 gram 04/11/19 %-0.05 % topical cream quetiapine 25 mg tablet 25 mg PO BEDTIME #30 tab 05/17/19 lactulose 10 gram/15 mL oral 150 ml PO QAM #3784 ml 05/24/19 solution lorazepam 0.5 mg tablet 0.5 mg PO BEDTIME PRN #30 tab 05/24/19 metformin 500 mg tablet 250 mg PO DAILY #30 tab 05/24/19 Allergies Allergy/AdvReac Type Severity Reaction Status Date / Time aspirin AdvReac Unknown Verified 05/24/19 09:30 Review of Systems Review of Systems Narrative: Review of systems were negative except for those mentioned in the hi story of present illness. Patient History Medical History Alcoholic hepatitis (Chronic) Alcoholism (Chronic) Alcoholism in remission (Chronic) Allergic rhinitis (Chronic) Asthma (Chronic) Asthma (Chronic) Bipolar disorder (Chronic) Bruises easily (Acute) Chronic migraine (Chronic) Dizziness (Acute) Duodenal ulcer (Chronic 09/2009) 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) Former smoker (Acute) Gastro-esophageal reflux (Chronic 12/31/10) Hepatitis (Acute) History of UTI (Acute) Major depressive disorder, recurrent, moderate (Chronic 12/31/10) Seizure (Acute ~07/11/18) Surgical History History of cholecystectomy (Acute) Status post endoscopy (Resolved 09/2009) Family History Other Alcoholism Asthma Social History household members: significant other Smoking Status: Former smoker alcohol intake: former Smoking Status: Former smoker alcohol intake frequency: 0-2 drinks per day Substance Use Type: does not use Exam Narrative Exam Narrative: PHYSICAL EXAM: CONSTITUTIONAL: Awake, Alert, Oriented, Coherent, Cooperative in mild distress. She does not appear to be ill or toxic appearing HEAD: AT/NC EENT: PERRL, FROM of eyes, no discharge, no nystagmus, sclera are slightly icteric. No epistaxis or nasal drainage Oral mucosa is moist and pink, posterior pharynx is without erythema or exudate. NECK: Supple, no obvious JVD, Trachea is midline without stridor, no palpable LN . SPINE: No gross deformity, no palpable tenderness of the cervical, thoracic, lumbar or sacral spine. No CVA tenderness. THORAX: No deformity, retractions, chest wall tenderness, .. LUNGS: Crackles in both bases of the lungs right greater than left without wheezes or rhonchi. Breath sounds are symmetrical. HEART: Normal heart tones, regular rhythm and rate with a grade 2/6 systolic murmur along the left costal sternal margin and the 2nd right intercostal space. ABDOMEN: Soft, distended tender in the epigastrium with mild guarding no rebound no rigidity. There was no palpable organomegaly or masses appreciated. Bowel sounds were present. EXTREMITIES: No edema, cyanosis, deformity or tenderness. SKIN: No rash, bruising, petechiae or purpura. NEURO: Awake, alert, oriented, conversive, no focal facial asymmetry, cranial nerves II-XII are symmetrical and normal, moves all 4 extremities and is ambulatory Initial Vital Signs Initial Vital Signs: Vital Signs Temperature 97.8 F 05/24/19 23:26 Pulse Rate 84 05/24/19 23:26 Respiratory Rate 15 05/24/19 23:26 Blood Pressure 115/56 L 05/24/19 23:26 Pulse Oximetry 100 05/24/19 23:26 Course Course Course Narrative: 0150: CT of the patient's abdomen reveals 1. emphysematous cystitis of the urinary bladder. 2. Cirrhosis of the liver with small ascites. Gastric and esophageal varices. 3. [place]ural thickening of the small bowel may reflect underlying liver disease or enteritis. 4. Patchy right base infiltrate may reflect pneumonia, aspiration pneumonitis or other atypical pneumonitis. 0223 a call has been placed to the patient's primary care physician Dr. Oakley to admit. Patient's white blood count slightly elevated 12.1. Hemoglobin is low at 8.8 and hematocrit is 25.3. Sodium is low at 121 potassium high at 5.2 chloride 95 CO2 18 GFR is greater than 60 creatinine is 0.69. Bilirubin is elevated at 4.9 AST is 93 ALT 98 alk phos is elevated at 373. Serum ammonia is 66 lipase is 563. Clinically the patient has acute pancreatitis. 0250 Dr. Cabezas called back and stated that the patient needs to be transferred to somewhere where they have GI to evaluate the patient and recommended that we transfer the patient to [facility]. GI is being called. Orders Ordered: Discontinued Medications Sodium Chloride (Normal Saline 0.9%) 1,000 mls @ 1,000 mls/hr IV BOLUS ONE Stop: 05/25/19 02:00 Last Infusion: 05/25/19 04:23 Dose: 0 mls/hr Documented by: Admin: 05/25/19 01:12 Dose: 1,000 mls/hr Documented by: SELENE Ceftriaxone Sodium/Dextrose (Rocephin) 1 gm in 50 mls @ 100 mls/hr IV NOW ONE Stop: 05/25/19 02:50 Last Infusion: 05/25/19 04:23 Dose: 0 mls/hr Documented by: Admin: 05/25/19 04:01 Dose: 100 mls/hr Documented by: DOMINIC Metronidazole (Flagyl) 500 mg in 100 mls @ 100 mls/hr IV NOW ONE Stop: 05/25/19 03:20 Last Infusion: 05/25/19 04:23 Dose: 0 mls/hr Documented by: Admin: 05/25/19 04:01 Dose: 100 mls/hr Documented by: DOMINIC Sodium Chloride (Normal Saline 0.9%) 1,000 mls @ 150 mls/hr IV CONT HAMMAD Morphine Sulfate (Morphine) 4 mg IV NOW ONE Stop: 05/25/19 01:02 Last Admin: 05/25/19 01:12 Dose: 4 mg Documented by: SELENE Morphine Sulfate (Morphine) 2 mg IV Q4HR PRN PRN Reason: Pain, Moderate (4-6) Ondansetron HCl (Zofran) 4 mg IV NOW ONE Stop: 05/25/19 01:02 Last Admin: 05/25/19 01:12 Dose: 4 mg Documented by: SELENE Ondansetron HCl (Zofran) 4 mg IV Q4HR PRN PRN Reason: Nausea And Vomiting Vital Signs Vital signs: Vital Signs - 8 hr 05/24/19 23:26 05/25/19 01:30 Temperature 97.8 F Pulse Rate 84 89 Respiratory Rate 15 Blood Pressure 115/56 L Blood Pressure [Left Arm] 111/53 L Pulse Oximetry 100 100 MDM - Abdominal Pain Medical Records Attestation: I reviewed the patient's medical records. Lab Data Attestation: I reviewed the patient's lab results. Result diagrams: 05/24/19 23:35 05/24/19 23:35 Labs: Lab Results 05/24/19 05/24/19 05/24/19 Range/Units 23:35 23:35 23:35 WBC 12.1 H (4.5-11.0) X10^3/uL RBC 2.46 L (4.0-5.2) X10^6/uL Hgb 8.8 L (12.0-16.0) g/dL Hct 25.3 L (36-46) % MCV 102.6 H (80-100) fL MCH 35.6 H (26-34) PG MCHC 34.7 (30-36) % RDW 15.3 H (11.6-14.8) % Plt Count 102 L (150-400) X10^3/uL Neut % (Auto) 56.9 (50-75) % Lymph % (Auto) 17.2 L (25-40) % [place] % (Auto) 18.6 H (3-14) % Eos % (Auto) 6.4 H (2-4) % Baso % (Auto) 0.9 (0-2) % Neut # (Auto) 6900 (4144-8650) /uL Lymph # (Auto) 2100 (5044-3238) /uL [place] # (Auto) 2200 H (0-900) /uL Eos # (Auto) 800 H (0-450) /uL Baso # (Auto) 100 (0-100) /uL Sodium 121 L (137-145) mmol/L Potassium 5.2 H (3.4-5.1) mmol/L Chloride 95 L (98-107) mmol/L Carbon Dioxide 18 L (22-32) mmol/L BUN 17 (7-17) mg/dL Creatinine 0.69 (0.52-1.04) mg/dL Estimated GFR > 60.0 (>60) mL/min BUN/Creatinine Ratio 24.6 H (6-22) Glucose 194 H (70-100) mg/dL Calcium 9.0 (8.4-10.2) mg/dL Total Bilirubin 4.9 H (0.2-1.3) mg/dL AST 93 H (14-36) IU/L ALT 98 H (<35) IU/L Alkaline Phosphatase 373 H (38-126) U/L Ammonia 66 H (9-30) umol/L Total Protein 6.5 (6.3-8.2) g/dL Albumin 3.2 L (3.5-5.0) g/dL Globulin 3.3 (1.7-4.1) g/dL Albumin/Globulin Ratio 1.0 (1.0-2.8) Lipase 536 H (23-300) U/L Ethyl Alcohol ( - 10) mg/dL 05/23/ Range/Units 23:35 WBC (4.5-11.0) X10^3/uL RBC (4.0-5.2) X10^6/uL Hgb (12.0-16.0) g/dL Hct (36-46) % MCV (80-100) fL MCH (26-34) PG MCHC (30-36) % RDW (11.6-14.8) % Plt Count (150-400) X10^3/uL Neut % (Auto) (50-75) % Lymph % (Auto) (25-40) % [place] % (Auto) (3-14) % Eos % (Auto) (2-4) % Baso % (Auto) (0-2) % Neut # (Auto) (9151-9509) /uL Lymph # (Auto) (0391-4736) /uL [place] # (Auto) (0-900) /uL Eos # (Auto) (0-450) /uL Baso # (Auto) (0-100) /uL Sodium (137-145) mmol/L Potassium (3.4-5.1) mmol/L Chloride (98-107) mmol/L Carbon Dioxide (22-32) mmol/L BUN (7-17) mg/dL Creatinine (0.52-1.04) mg/dL Estimated GFR (>60) mL/min BUN/Creatinine Ratio (6-22) Glucose (70-100) mg/dL Calcium (8.4-10.2) mg/dL Total Bilirubin (0.2-1.3) mg/dL AST (14-36) IU/L ALT (<35) IU/L Alkaline Phosphatase (38-126) U/L Ammonia (9-30) umol/L Total Protein (6.3-8.2) g/dL Albumin (3.5-5.0) g/dL Globulin (1.7-4.1) g/dL Albumin/Globulin Ratio (1.0-2.8) Lipase (23-300) U/L Ethyl Alcohol < 10 ( - 10) mg/dL ECG Data Attestation: I personally reviewed and interpreted this ECG as follows: Interpretation: The patient's EKG obtained on May 23 at 23:2 4:49 a.m. reveals a sinus rhythm with a ventricular rate of 78. The patient has inverted T-waves in lead III and V1. There are no other acute T-wave inversions or ST segment changes noted. His [place] interval and QTC intervals are normal. His QRS is slightly prolonged at 113 milliseconds. [place] is normal. The patient has left ventricular hypertrophy by voltage criteria in the arm precordial leads. Otherwise the EKG appears normal. Discharge Plan Departure Patient Disposition: [facility] Clinical Impression: Acute epigastric pain, Encephalopathy, hepatic, Jaundice, Acute hyponatremia Acute alcoholic pancreatitis Qualifiers: Acute pancreatitis complication: unspecified Qualified Code(s): K85.20 - Alcohol induced acute pancreatitis without necrosis or infection Right lower lobe pneumonia Qualifiers: Pneumonia type: due to unspecified organism Qualified Code(s): J18.9 - Pneumonia, unspecified organism Leucocytosis Qualifiers: Leukocytosis type: monocytosis Qualified Code(s): D72.821 - Monocytosis (symptomatic) Discharge Date/Time: 05/25/19 04:30 Prescriptions: No Action quetiapine 25 mg tablet 25 mg PO BEDTIME Qty: 30 RF: 3 nortriptyline 25 mg capsule 25 mg PO BEDTIME Qty: 30 RF: 3 fluticasone propion-salmeterol 500-50 mcg/dose blister with device 1 inhalation INHALATION DAILY RF: 0 metformin 500 mg tablet 250 mg PO DAILY Qty: 30 RF: 3 lorazepam 0.5 mg tablet 0.5 mg PO BEDTIME PRN (Reason: sleep) Qty: 30 RF: 0 lactulose 10 gram/15 mL solution 150 ml PO QAM Qty: 3784 RF: 12 spironolactone 100 mg tablet 100 mg PO TID Qty: 360 RF: 3 furosemide 20 mg tablet 40 mg PO BID RF: 0 clotrimazole-betamethasone 1-0.05 % cream 1 applictn TOP BID Qty: 45 RF: 3 Adult Multivitamin Gummies 200 mcg Tablet,Chewable 1 tab PO DAILY RF: 0 meclizine 25 mg tablet 25 mg PO TID PRN (Reason: dizziness) Qty: 10 RF: 0 ED Sign-out Cosign ED Attending Cosignature Attestation: I was immediately available in the department for consultation. This documentation has been reviewed and I agree with assessment and plan. Supervised by Nahum Allan MD
--- NOTE | 2019-05-25 01:01 | DI.CT.S_ITS ---
PROCEDURE: CT ABDOMEN PELVIS W CON INDICATIONS: severe epigastric pain TECHNIQUE: After the administration of oral and intravenous contrast, 5 mm thick sections acquired from the diaphragms to the symphysis. 5 mm thick coronal and sagittal reformats were performed. For radiation dose reduction, the following was used: automated exposure control, adjustment of mA and/or kV according to patient size. COMPARISON: [facility], MR, MR ABDOMEN MRCP, 05/25/2019, 8:48. [facility], CT, CT ABDOMEN PELVIS W CON, 12/09/2018, 16:48. [facility], CT, CT ABDOMEN PELVIS W CON, 07/14/2018, 11:14. FINDINGS: Image quality: Diagnostic. ABDOMEN: Lung bases: Minimal areas of consolidation are seen within the right lower lobe. Otherwise, the midlung bases are clear. Heart size is normal. Solid organs: Cirrhotic liver morphology is identified with nodular appearance and heterogeneity of the liver parenchyma. No definitive liver lesion is appreciated. The portal vein appears to be patent. Varices within the epigastric region are present. Recanalization of the umbilical vein is noted. Gallbladder surgically absent. The spleen is borderline enlarged. The adrenals are slightly prominent without a definitive nodule. The kidneys are normal in size. No hydronephrosis is evident. The pancreas is within normal limits. Peritoneum and bowel: Multiple varices are identified adjacent to the distal esophagus and at the gastroesophageal junction. The stomach is somewhat distended. A mild wall thickening involving multiple small bowel loops is identified with borderline distention of small bowel loops present. Moderate amount of stool seen within the colon. A small amount of free fluid is identified within the upper abdomen. The appendix is well-visualized and normal in size. There is no loculated fluid collection or free air. Nodes and vessels: No retroperitoneal or mesenteric adenopathy. Aorta and inferior vena cava are normal in caliber. Multiple upper abdominal varices are evident. There is recannulization of the umbilical vein. Bones: No acute fracture or suspicious osseous lesion is identified. PELVIS: Genitourinary: There is identified within the wall of the urinary bladder. No bladder calculi are evident. The uterus and ovaries are not enlarged or adequately evaluated on this exam. Miscellaneous: No inguinal hernias or adenopathy. There is a small amount of free fluid within the pelvis. No loculated fluid collections or free air is evident. Bones: No suspicious bony lesions. No acute pelvic fractures are identified. IMPRESSION: 1. Emphysematous cystitis. Clinical correlation is recommended. 2. Hepatic cirrhosis with findings suggesting portal venous hypertension with gastroesophageal varices and recanalization of the paraumbilical vein. 3. Mild upper abdominal ascites. No drainable fluid collections. 4. Nonspecific wall thickening of the small bowel may be related to chronic liver disease. However, clinical correlation to exclude enteritis is recommended. 5. Possible constipation. No bowel obstruction. 6. Subtle areas of consolidation within the right lower lobe may represent infection, aspiration, or atelectasis. Note: The preliminary report provided by [facility]. is concordant with the final report. Dictated by: Dean Costello M.D. on 05/25/2019 at 9:54 Approved by: Dean Costello M.D. on 05/25/2019 at 10:04
[2019-05-25] MEDS: SODIUM CHLORIDE 0.9% 1,000 ML 1000 ML IV (01:12)
[2019-05-25] MEDS: ONDANSETRON 4 MG/2 ML INJ IV (01:12)
[2019-05-25] MEDS: MORPHINE 4 MG/ML INJ IV (01:12)
[2019-05-25 01:17] LABS: Ethanol (ETOH) < 10 mg/dL
[2019-05-25 01:30] VITALS: BP 111/53; PULSE 89; O2SAT 100
[2019-05-25] MEDS: CEFTRIAXONE 1 GM/50 ML FROZ.PIGGY IV (04:01)
[2019-05-25] MEDS: metroNIDAZOLE 500 MG/100 ML PIGGYBACK 100 MG IV (04:01)
[2019-05-25 04:26] VITALS: BP 141/76; PULSE 77; RESP 17; O2SAT 98
== END 2019-05-25 04:30 | disposition short-term general hospital (02) ==
PROVIDERS: Emergency Provider Emergency Medicine
DX: R10.13 Epigastric pain (principal); K72.90 Hepatic failure, unspecified without coma; E87.1 Hypo-osmolality and hyponatremia; K85.20 Alcohol induced acute pancreatitis without necrosis or infection; J18.9 Pneumonia, unspecified organism; D72.821 Monocytosis (symptomatic)
CPT/HCPCS: 36415; 74177; 80053; 80320; 82140; 83690; 85025; 93005; 96365; 96366; 96368; 96375; 99284; 99285; J2270; J2405; Q9967

== ENCOUNTER 2019-05-29 13:16 | Emergency (ER) | payer OTHER, MEDICAID, SELFPAY ==
[2019-02-28 13:29] VITALS: BMI 27.5
[2019-05-29] VITALS (12 sets, daily range): BP systolic 102–132; BP diastolic 55–81; PULSE 75–117; RESP 20–32; TEMP 36.6; O2SAT 97–100; BMI 29.0
--- NOTE | 2019-05-29 13:28 | ED_ITS ---
HPI - General Adult General Chief complaint: Abdominal Pain Stated complaint: Distended abdominen, ascites Time Seen by Provider: 05/29/19 13:17 Source: patient Mode of arrival: Ambulatory Limitations: no limitations History of Present Illness HPI narrative: Patient is a 43-year-old female. Has a history of alcoholic liver disease and history of pancreatitis. Was seen here in our emergency department less than 1 week ago for abdominal pain. Was transferred to [facility]. Patient states she was discharged within the past 48 hours. She states she did not see a GI doctor while she was there. She states that since she was discharged she feels like her abdominal pain is getting worse. She states she feels like she is more distended. No fevers no cough no chest pain. She states she feels like she has quite a bit of fluid on her abdomen. No lower extremity swelling. She is taking her medications. Is having 1 bowel movement a day which is loose but this is not surprising to her because of the lactulose. She is taking her Lasix. Related Data Home Medications Medication Instructions Recorded Confirmed Adult Multivitamin Gummies 1 tab PO DAILY 08/14/18 05/24/19 furosemide 20 mg tablet 40 mg PO BID tab 04/11/19 05/24/19 fluticasone 500 mcg-salmeterol 50 1 inhalation INHALATION DAILY each 05/24/19 05/24/19 mcg/dose blistr powdr for inhalation Previous Rx's Medication Instructions Recorded nortriptyline 25 mg capsule 25 mg PO BEDTIME #30 cap 10/26/18 spironolactone 100 mg tablet 100 mg PO TID #360 tab 01/24/19 meclizine 25 mg PO TID PRN #10 tab 04/06/19 clotrimazole-betamethasone 1 1 applictn TOP BID #45 gram 04/11/19 %-0.05 % topical cream quetiapine 25 mg tablet 25 mg PO BEDTIME #30 tab 05/17/19 lactulose 10 gram/15 mL oral 150 ml PO QAM #3784 ml 05/24/19 solution lorazepam 0.5 mg tablet 0.5 mg PO BEDTIME PRN #30 tab 05/24/19 metformin 500 mg tablet 250 mg PO DAILY #30 tab 05/24/19 Allergies Allergy/AdvReac Type Severity Reaction Status Date / Time aspirin AdvReac Unknown Verified 05/29/19 13:23 Review of Systems Constitutional Constitutional: Denies chills, Denies fever(s) and Denies headache(s) ENT Ears, Nose, Mouth, and Throat: Denies headache(s) Cardiovascular Cardiovascular: Denies chest pain and Reports dyspnea Respiratory Respiratory: Reports dyspnea Gastrointestinal Gastrointestinal: Reports abdominal pain, Reports bloating, Reports loose stools and Denies vomiting Genitourinary Genitourinary: Denies dysuria Musculoskeletal Musculoskeletal: Denies myalgias and Denies arthralgias Integumentary/Breasts Skin/Breast: Denies lesions and Denies rash Neurologic Neurologic: Denies behavioral changes and Denies headache(s) Psychiatric Psychiatric: Denies behavioral changes Hematologic/Lymphatic Hematologic/Lymphatic: Denies easy bleeding and Reports easy bruising Patient History Medical History Alcoholic hepatitis (Chronic) Alcoholism (Chronic) Alcoholism in remission (Chronic) Allergic rhinitis (Chronic) Asthma (Chronic) Asthma (Chronic) Bipolar disorder (Chronic) Bruises easily (Acute) Chronic migraine (Chronic) Dizziness (Acute) Duodenal ulcer (Chronic 09/2009) 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) Former smoker (Acute) Gastro-esophageal reflux (Chronic 12/31/10) Hepatitis (Acute) History of UTI (Acute) Major depressive disorder, recurrent, moderate (Chronic 12/31/10) Seizure (Acute ~07/11/18) Surgical History History of cholecystectomy (Acute) Status post endoscopy (Resolved 09/2009) Family History Other Alcoholism Asthma Social History household members: significant other Smoking Status: Former smoker alcohol intake: former Smoking Status: Former smoker alcohol intake frequency: 0-2 drinks per day Substance Use Type: does not use Exam Initial Vital Signs Initial Vital Signs: Vital Signs Temperature 97.8 F 05/29/19 13:20 Pulse Rate 117 H 05/29/19 13:20 Respiratory Rate 32 H 05/29/19 13:20 Blood Pressure 116/72 05/29/19 13:20 Pulse Oximetry 99 05/29/19 13:20 Const General: cooperative, No comfortable (Uncomfortable), well groomed and acute distress Limitations: mental status not altered [facility] Head: normal to inspection and normocephalic Resp Effort & Inspection: normal respiratory effort Auscultation: clear to auscultation bilaterally Cardio Rate: tachycardic Rhythm: regular rhythm GI Inspection: distended Palpation: soft and tender (Diffuse) Skin General: jaundice Rashes: no rashes Neuro General: alert, awake and oriented x3 Cognition: normal cognition Speech: speech normal Extrem General: normal to inspection and capillary refill normal Psych Appearance: grossly normal and well kempt Procedures Paracentesis Time Out Performed: Yes Local Anesthetic: lidocaine 1% Amount of anesthesia used (mL): 5 Fluid: clear (300 cc) Post Procedure Exam: awake, alert Patient Tolerated Procedure: Well and No complications Complications: none Course Orders Ordered: ED Orders 05/29/19 13:25 Ammonia (NH3) Stat Basic Metabolic Panel Stat Complete Blood Count AUTO DIFF Stat Hepatic (Liver) Panel Stat Lactate (Lactic Acid) Stat Lipase Stat Partial Thromboplastin Time Stat Prothrombin Time INR Stat 05/29/19 14:14 CT chest abd pel w con Stat 05/29/19 16:59 Blood Culture Stat 05/29/19 17:05 Arterial Blood Gas Stat Sodium Chloride (Normal Saline 0.9%) 1,000 mls @ 150 mls/hr IV CONT HAMMAD Discontinued Medications Sodium Chloride (Normal Saline 0.9%) 1,000 mls @ 1,000 mls/hr IV BOLUS ONE Stop: 05/29/19 17:28 Last Infusion: 05/29/19 18:21 Dose: 0 mls/hr Documented by: Admin: 05/29/19 17:01 Dose: 1,000 mls/hr Documented by: [email or web address] Ceftriaxone Sodium/Dextrose (Rocephin) 1 gm in 50 mls @ 100 mls/hr IV NOW ONE Stop: 05/29/19 17:05 Last Infusion: 05/29/19 17:46 Dose: 0 mls/hr Documented by: [email or web address] Admin: 05/29/19 17:16 Dose: 100 mls/hr Documented by: [email or web address] Lidocaine/Sodium Bicarbonate (Buffered Lidocaine 10 Ml Syr) 10 ml INJ NOW ONE Stop: 05/29/19 13:29 Last Admin: 03/25/20 13:39 Dose: 10 ml Documented by: LUL Morphine Sulfate (Morphine) 2 mg IV NOW ONE Stop: 05/29/19 16:25 Last Admin: 05/29/19 17:02 Dose: 2 mg Documented by: [email or web address] Vital Signs Vital signs: Vital Signs - 8 hr 05/29/19 13:20 05/29/19 13:35 05/29/19 14:00 Temperature 97.8 F Pulse Rate 117 H 79 75 Respiratory Rate 32 H 32 H 28 H Blood Pressure 116/72 Blood Pressure [Left Arm] 104/65 112/55 L Pulse Oximetry 99 100 99 05/29/19 14:55 05/29/19 15:09 05/29/19 16:15 Temperature Pulse Rate 100 H 96 H 102 H Respiratory Rate 28 H 20 28 H Blood Pressure Blood Pressure [Left Arm] 114/66 118/65 102/62 Pulse Oximetry 99 100 97 05/29/19 16:30 05/29/19 17:00 05/29/19 17:25 Temperature Pulse Rate 101 H 100 H 102 H Respiratory Rate 24 24 Blood Pressure Blood Pressure [Left Arm] 123/59 L 122/59 L 132/60 Pulse Oximetry 100 100 100 Medical Decision Making Medical Records Medical records reviewed: Yes I reviewed the patient's medical records. Lab Data Lab results reviewed: Yes I reviewed the patient's lab results. Result diagrams: 05/29/19 13:25 05/29/19 13:25 Labs: Lab Results 05/29/19 05/29/19 05/29/19 Range/Units 13:25 13:25 13:25 WBC 10.7 (4.5-11.0) X10^3/uL RBC 2.46 L (4.0-5.2) X10^6/uL Hgb 8.7 L (12.0-16.0) g/dL Hct 24.7 L (36-46) % MCV 100.2 H (80-100) fL MCH 35.1 H (26-34) PG MCHC 35.0 (30-36) % RDW 17.7 H (11.6-14.8) % Plt Count 90 L (150-400) X10^3/uL Neut % (Auto) 59.7 (50-75) % Lymph % (Auto) 16.3 L (25-40) % [place] % (Auto) 16.1 H (3-14) % Eos % (Auto) 7.6 H (2-4) % Baso % (Auto) 0.3 (0-2) % Neut # (Auto) 6400 (3212-3098) /uL Lymph # (Auto) 1800 (7877-0482) /uL [place] # (Auto) 1700 H (0-900) /uL Eos # (Auto) 800 H (0-450) /uL Baso # (Auto) 0 (0-100) /uL PT 19.7 H (10.1-12.7) SECONDS INR 1.7 H (0.9-1.3) APTT 38 H (26.4-36.2) SECONDS ABG pH (7.35-7.45) ABG pCO2 (35-45) mmHg ABG pO2 (80-100) mmHg ABG HCO3 (22-26) mmol/L ABG Total CO2 (21-31) mmol/L ABG O2 Saturation (95-100) % ABG Base Excess (-2-2) mmol/L FiO2 Sodium (137-145) mmol/L Potassium (3.4-5.1) mmol/L Chloride (98-107) mmol/L Carbon Dioxide (22-32) mmol/L BUN (7-17) mg/dL Creatinine (0.52-1.04) mg/dL Estimated GFR (>60) mL/min BUN/Creatinine Ratio (6-22) Glucose (70-100) mg/dL Lactate (0.7-2.1) mmol/L Calcium (8.4-10.2) mg/dL Total Bilirubin (0.2-1.3) mg/dL Conjugated Bilirubin (0.0-0.3) md/dL Unconjugated Bilirubin (0.0-1.1) mg/dL AST (14-36) IU/L ALT (<35) IU/L Alkaline Phosphatase (38-126) U/L Ammonia 47 H (9-30) umol/L Total Protein (6.3-8.2) g/dL Albumin (3.5-5.0) g/dL Globulin (1.7-4.1) g/dL Albumin/Globulin Ratio (1.0-2.8) Lipase (23-300) U/L 05/29/19 05/29/19 05/29/19 Range/Units 13:25 13:25 17:05 WBC (4.5-11.0) X10^3/uL RBC (4.0-5.2) X10^6/uL Hgb (12.0-16.0) g/dL Hct (36-46) % MCV (80-100) fL MCH (26-34) PG MCHC (30-36) % RDW (11.6-14.8) % Plt Count (150-400) X10^3/uL Neut % (Auto) (50-75) % Lymph % (Auto) (25-40) % [place] % (Auto) (3-14) % Eos % (Auto) (2-4) % Baso % (Auto) (0-2) % Neut # (Auto) (1103-0455) /uL Lymph # (Auto) (9140-9084) /uL [place] # (Auto) (0-900) /uL Eos # (Auto) (0-450) /uL Baso # (Auto) (0-100) /uL PT (10.1-12.7) SECONDS INR (0.9-1.3) APTT (26.4-36.2) SECONDS ABG pH 7.49 H (7.35-7.45) ABG pCO2 24.1 L* (35-45) mmHg ABG pO2 105 H (80-100) mmHg ABG HCO3 18 L (22-26) mmol/L ABG Total CO2 19 L (21-31) mmol/L ABG O2 Saturation 99 (95-100) % ABG Base Excess -5.0 L (-2-2) mmol/L FiO2 21 Sodium 128 L (137-145) mmol/L Potassium 4.6 (3.4-5.1) mmol/L Chloride 102 (98-107) mmol/L Carbon Dioxide 15 L (22-32) mmol/L BUN 14 (7-17) mg/dL Creatinine 0.60 (0.52-1.04) mg/dL Estimated GFR > 60.0 (>60) mL/min BUN/Creatinine Ratio 23.3 H (6-22) Glucose 194 H (70-100) mg/dL Lactate 4.8 H* (0.7-2.1) mmol/L Calcium 8.6 (8.4-10.2) mg/dL Total Bilirubin 4.2 H (0.2-1.3) mg/dL Conjugated Bilirubin 0.0 (0.0-0.3) md/dL Unconjugated Bilirubin 2.6 H (0.0-1.1) mg/dL AST 79 H (14-36) IU/L ALT 72 H (<35) IU/L Alkaline Phosphatase 289 H (38-126) U/L Ammonia (9-30) umol/L Total Protein 5.6 L (6.3-8.2) g/dL Albumin 2.6 L (3.5-5.0) g/dL Globulin 3.0 (1.7-4.1) g/dL Albumin/Globulin Ratio 0.9 L (1.0-2.8) Lipase 537 H (23-300) U/L Imaging Data CT scan - abdomen/pelvis: Radiologist's Impression: [address] [address] [address] Scan Report Signed Patient: Lanny Ashby EMR#: [id number] : 1975Acct:[id number] Age/Sex: 43 / FDate of Service: 05/29/19 Loc: ED Accession Number: [id number] Procedure: CT chest abd pel w con Ordering Provider: Black Caicedo D.O. PROCEDURE: CT CHEST ABD PEL W CON INDICATIONS: Shortness of breath, abdominal pain, hepatic disease TECHNIQUE: After the administration of oral and intravenous contrast, 5 mm thick sections acquired from the lung apices to the symphysis. 5 mm coronal and sagittal reformats were performed, with additional 7 mm coronal MIP reformats through the lungs. For radiation dose reduction, the following was used: automated exposure control, adjustment of mA and/or kV according to patient size. COMPARISON: [facility], MR, MR ABDOMEN MRCP, 05/25/2019, 8:48. [facility], CT, CT ABDOMEN PELVIS W CON, 05/25/2019, 1:07. FINDINGS: Image quality: Excellent. CHEST: Lungs and pleura: No acute airspace opacities. No pleural effusions or pneumothorax. Central and peripheral airways appear patent and normal in caliber. Mediastinum: Heart size is normal. No pericardial effusion. No mediastinal or hilar adenopathy by size criteria. Thoracic aorta and central pulmonary arteries are normal in size. Esophagus is normal in caliber. No hiatal hernia. Chest wall: No axillary or supraclavicular adenopathy by size criteria. Thyroid gland is within normal limits. ABDOMEN: Solid organs: Compared to previous study, there is interval development of moderate to large amount of ascites fluid. Cirrhotic appearing liver is again seen, no discrete hepatic lesion is noted. Gallbladder is surgically absent. Biliary system is non dilated. Pancreas enhances normally. Spleen is normal in size and enhancement. Thickened bilateral adrenal glands are seen. No definite discrete adrenal nodule. Kidneys demonstrate normal size and enhancement, without hydronephrosis. Peritoneum and bowel: Multiple varices are again noted in distal esophagus at GE junction. Stomach is moderately distended with suggestion of mild gastric wall edema and thickening. Significant wall thickening and edema involving small bowel and co dale loops are noted progressed since previous study and is suggestive of worsening enterocolitis. Extensive descending colon and sigmoid colon diverticulosis is seen with no evidence of acute diverticulitis. No evidence of bowel obstruction. Nodes and vessels: No retroperitoneal or mesenteric adenopathy by size criteria. Aorta and inferior vena cava are normal in size. Miscellaneous: No ventral hernias. PELVIS: Genitourinary: Bladder wall thickness is normal. No evidence of bladder wall air is seen. Miscellaneous: No inguinal hernias or adenopathy. Bones: No suspicious bony lesions. No vertebral body compression fractures. IMPRESSION: 1. Interval significant increase in the amount of ascites fluid. No gross free air. 2. Interval significant worsening of wall thickening and edema involving small bowel loops and colon loops suggestive of worsening enterocolitis. 3. Mild gastric wall thickening and edema which may represent mild gastritis. 4. Bilateral lungs are clear. 5. No enlarged lymph nodes are seen in chest, abdomen or pelvis. 6. Cirrhotic appearing liver with signs of portal venous hypertension. Dictated by: Nelson Liu M.D. on 05/29/2019 at 14:35 Approved by: Nelson Liu M.D. on 05/29/2019 at 15:05 MDM Narrative Medical decision making narrative: Patient arrived nontoxic but did seem to be in quite a bit of discomfort. Patient states that she felt like her abdomen was distended and like it was full of fluid. She has had paracentesis in the past and she states this feels like when her abdomen is full of fluid. I used a bedside ultrasound which showed only a small amount of fluid most of which was in the left lower quadrant. Informed the patient that according to the ultrasound there was not a great amount of fluid in her abdomen however she insisted that this is what ?they said the last time and they took off 5 L ?I did discuss the risks and benefits of the procedure to include infection, damage to bowel, pain, the need for further procedures. After this the patient agreed. She signed the consent form. Only 300 cc of clear straw-colored fluid was r emoved. This was after multiple attempts at repositioning. Patient is still complaining of quite a bit of abdominal pain. She was sent for CT scan which showed diffuse large and small intestine swelling consistent with gastroenteritis. Patient is having soft bowel movements every day but this is not changed. She attributes this to the lactulose that she is taking. I was able to discuss the case with her physical optics teacher Dr. Quintanilla he stated that there may be some concern for an ischemic bowel. A lactate was ordered. This test was run off of the blood that she had drawn when she 1st arrived to the emergency department. This did return elevated. Fluids were started. I discussed the CT scan with the radiologist to stated that even though was not a CT angiogram he felt that the mesenteric arteries were widely patent. He stated that he had low concern based on the CT scan for clots or ischemic bowel. I also discussed with Gastroenterology the potential for SBP. Patient is not febrile. Her white count which was elevated a couple days ago is actually more improved today. She was given Rocephin. Unfortunately it did not save the peritoneal fluid to send for analysis. Patient's heart rate did improve with pain control. She is alert oriented x3. I feel that given her complexity of the disease process in the fact that her physical optics teacher rotates at [facility] on [address] that this would be the most appropriate place for her. I did discuss the case with Dr. Lund with Internal Medicine. We did discuss the possibility of COVID-19 presenting is just GI complaints however the CT scan of the chest did not show any ground glass opacities we feel this is low risk. Patient also has no URI symptoms. I did discuss the need for transfer with the patient. Discussed the risks and benefits this. Patient expressed understanding. I feel that she is stable for transport. Discharge Plan Departure Patient Disposition: [facility] Clinical Impression: Alcoholic liver disease, Jaundice, Enterocolitis Abdominal pain Qualifiers: Abdominal location: generalized Qualified Code(s): R10.84 - Generalized abdominal pain Gastritis Qualifiers: Gastritis type: unspecified gastritis Chronicity: unspecified Gastritis bleeding: presence of bleeding unspecified Qualified Code(s): K29.70 - Gastritis, unspecified, without bleeding Ascites Qualifiers: Ascites type: due to alcoholic cirrhosis Qualified Code(s): K70.31 - Alcoholic cirrhosis of liver with ascites Prescriptions: No Action quetiapine 25 mg tablet 25 mg PO BEDTIME Qty: 30 RF: 3 nortriptyline 25 mg capsule 25 mg PO BEDTIME Qty: 30 RF: 3 fluticasone propion-salmeterol 500-50 mcg/dose blister with device 1 inhalation INHALATION DAILY RF: 0 metformin 500 mg tablet 250 mg PO DAILY Qty: 30 RF: 3 lorazepam 0.5 mg tablet 0.5 mg PO BEDTIME PRN (Reason: sleep) Qty: 30 RF: 0 lactulose 10 gram/15 mL solution 150 ml PO QAM Qty: 3784 RF: 12 spironolactone 100 mg tablet 100 mg PO TID Qty: 360 RF: 3 furosemide 20 mg tablet 40 mg PO BID RF: 0 clotrimazole-betamethasone 1-0.05 % cream 1 applictn TOP BID Qty: 45 RF: 3 Adult Multivitamin Gummies 200 mcg Tablet,Chewable 1 tab PO DAILY RF: 0 meclizine 25 mg tablet 25 mg PO TID PRN (Reason: dizziness) Qty: 10 RF: 0 Referrals: Nahum Oakley MD [Primary Care Provider] -
[2019-05-29] MEDS: LIDO 1%/SOD BICARB 8.4% (10ML) 10 ML SYRINGE INJ (13:39)
[2019-05-29 13:42] LABS: Add Manual Diff / Slide Review NO; Basophils Absolute Auto 0 /uL (0-100); Basophils Percent Auto 0.3 % (0-2); Eosinophils Absolute Auto 800 /uL (0-450); Eosinophils Percent Auto 7.6 % (2-4); Hematocrit 24.7 % (36-46); Hemoglobin 8.7 g/dL (12.0-16.0); Lymphocytes Absolute Auto 1800 /uL (1100-4500); Lymphocytes Percent Auto 16.3 % (25-40); Mean Corpuscular Hemoglobin 35.1 PG (26-34); Mean Corpuscular Volume 100.2 fL (80-100); Monocytes Absolute Auto 1700 /uL (0-900); Monocytes Percent Auto 16.1 % (3-14); Neutrophils Absolute Auto 6400 /uL (1500-7000); Neutrophils Percent Auto 59.7 % (50-75); Platelet Count 90 X10^3/uL (150-400); Red Blood Cell Count 2.46 X10^6/uL (4.0-5.2); Red Cell Distribution Width 17.7 % (11.6-14.8); White Blood Cell Count 10.7 X10^3/uL (4.5-11.0)
[2019-05-29 13:45] LABS: INR 1.7 (0.9-1.3); Prothrombin Time 19.7 SECONDS (10.1-12.7)
[2019-05-29 13:47] LABS: PTT Partial Thromboplastin Tim 38 SECONDS (26.4-36.2)
[2019-05-29 13:50] LABS: Alanine Aminotransferase 72 IU/L (<35); Albumin 2.6 g/dL (3.5-5.0); Albumin Globulin Ratio 0.9 (1.0-2.8); Alkaline Phosphatase 289 U/L (38-126); Aspartate Aminotransferase 79 IU/L (14-36); BUN Creatinine Ratio 23.3 (6-22); Bilirubin Total 4.2 mg/dL (0.2-1.3); Bilirubin Unconjugated 2.6 mg/dL (0.0-1.1); Blood Urea Nitrogen 14 mg/dL (7-17); Calcium 8.6 mg/dL (8.4-10.2); Carbon Dioxide 15 mmol/L (22-32); Chloride 102 mmol/L (98-107); Estimated Glomerular Filt Rate > 60.0 mL/min (>60); Glucose 194 mg/dL (70-100); HEMOLYSIS < 15 (0-50); Lipase 537 U/L (23-300); Potassium 4.6 mmol/L (3.4-5.1); Sodium 128 mmol/L (137-145); Total Protein 5.6 g/dL (6.3-8.2)
[2019-05-29 13:51] LABS: Ammonia (NH3) 47 umol/L (9-30)
--- NOTE | 2019-05-29 14:14 | DI.CT.S_ITS ---
PROCEDURE: CT CHEST ABD PEL W CON INDICATIONS: Shortness of breath, abdominal pain, hepatic disease TECHNIQUE: After the administration of oral and intravenous contrast, 5 mm thick sections acquired from the lung apices to the symphysis. 5 mm coronal and sagittal reformats were performed, with additional 7 mm coronal MIP reformats through the lungs. For radiation dose reduction, the following was used: automated exposure control, adjustment of mA and/or kV according to patient size. COMPARISON: [facility], MR, MR ABDOMEN MRCP, 05/25/2019, 8:48. [facility], CT, CT ABDOMEN PELVIS W CON, 05/25/2019, 1:07. FINDINGS: Image quality: Excellent. CHEST: Lungs and pleura: No acute airspace opacities. No pleural effusions or pneumothorax. Central and peripheral airways appear patent and normal in caliber. Mediastinum: Heart size is normal. No pericardial effusion. No mediastinal or hilar adenopathy by size criteria. Thoracic aorta and central pulmonary arteries are normal in size. Esophagus is normal in caliber. No hiatal hernia. Chest wall: No axillary or supraclavicular adenopathy by size criteria. Thyroid gland is within normal limits. ABDOMEN: Solid organs: Compared to previous study, there is interval development of moderate to large amount of ascites fluid. Cirrhotic appearing liver is again seen, no discrete hepatic lesion is noted. Gallbladder is surgically absent. Biliary system is non dilated. Pancreas enhances normally. Spleen is normal in size and enhancement. Thickened bilateral adrenal glands are seen. No definite discrete adrenal nodule. Kidneys demonstrate normal size and enhancement, without hydronephrosis. Peritoneum and bowel: Multiple varices are again noted in distal esophagus at GE junction. Stomach is moderately distended with suggestion of mild gastric wall edema and thickening. Significant wall thickening and edema involving small bowel and colon loops are noted progressed since previous study and is suggestive of worsening enterocolitis. Extensive descending colon and sigmoid colon diverticulosis is seen with no evidence of acute diverticulitis. No evidence of bowel obstruction. Nodes and vessels: No retroperitoneal or mesenteric adenopathy by size criteria. Aorta and inferior vena cava are normal in size. Miscellaneous: No ventral hernias. PELVIS: Genitourinary: Bladder wall thickness is normal. No evidence of bladder wall air is seen. Miscellaneous: No inguinal hernias or adenopathy. Bones: No suspicious bony lesions. No vertebral body compression fractures. IMPRESSION: 1. Interval significant increase in the amount of ascites fluid. No gross free air. 2. Interval significant worsening of wall thickening and edema involving small bowel loops and colon loops suggestive of worsening enterocolitis. 3. Mild gastric wall thickening and edema which may represent mild gastritis. 4. Bilateral lungs are clear. 5. No enlarged lymph nodes are seen in chest, abdomen or pelvis. 6. Cirrhotic appearing liver with signs of portal venous hypertension. Dictated by: Nelson Lui M.D. on 05/29/2019 at 14:35 Approved by: Nelson Liu M.D. on 05/29/2019 at 15:05
[2019-05-29 16:25] LABS: Lactate (Lactic Acid) 4.8 mmol/L (0.7-2.1)
[2019-05-29] MEDS: SODIUM CHLORIDE 0.9% 1,000 ML 1000 ML IV (17:01)
[2019-05-29] MEDS: MORPHINE 2 MG/ML INJ IV (17:02)
[2019-05-29] MEDS: CEFTRIAXONE 1 GM/50 ML FROZ.PIGGY IV (17:16)
[2019-05-29 17:45] LABS: HCO3 ABG 18 mmol/L (22-26); Oxygen Saturation ABG 99 % (95-100); PCO2 ABG 24.1 mmHg (35-45); PO2 ABG 105 mmHg (80-100); TCO2 ABG 19 mmol/L (21-31); pH ABG 7.49 (7.35-7.45)
[2019-05-29 17:46] LABS: Fractionated Inspired Oxygen 21
[2019-05-29 18:12] LABS: Reflexed Lactate in 2 Hours Y
[2019-05-29] MEDS: SODIUM CHLORIDE 0.9% 1,000 ML 150 ML IV (18:30)
[2019-05-29 18:37] LABS: Lactate 2HR (Lactic Acid Rflx) 1.8 mmol/L (0.7-2.1)
--- NOTE | 2019-05-29 20:11 | PC.NURSE ---
Voided 400 dark yellow urine on commode.Transferred self without difficulty.
== END 2019-05-29 19:25 | disposition short-term general hospital (02) ==
PROVIDERS: Emergency Provider Emergency Medicine; PCP Internal Medicine
DX: K70.31 Alcoholic cirrhosis of liver with ascites (principal); K70.9 Alcoholic liver disease, unspecified; K29.70 Gastritis, unspecified, without bleeding; R10.84 Generalized abdominal pain; K52.9 Noninfective gastroenteritis and colitis, unspecified; R06.02 Shortness of breath
CPT/HCPCS: 36415; 36600; 49082; 71260; 74177; 80048; 80076; 82140; 82805; 83605; 83690; 85025; 85610; 85730; 87040; 96361; 96365; 96375; 99285; J2270; Q9967

== ENCOUNTER → 2019-06-06 08:50 | Outpatient (CLI) | payer OTHER, MEDICAID, SELFPAY ==
[2019-02-28 13:29] VITALS: BMI 27.5
[2019-06-06 11:23] LABS: Add Manual Diff / Slide Review NO; Basophils Absolute Auto 0 /uL (0-100); Basophils Percent Auto 0.5 % (0-2); Eosinophils Absolute Auto 500 /uL (0-450); Eosinophils Percent Auto 10.5 % (2-4); Hematocrit 23.5 % (36-46); Hemoglobin 8.1 g/dL (12.0-16.0); Lymphocytes Absolute Auto 1100 /uL (1100-4500); Lymphocytes Percent Auto 22.5 % (25-40); Mean Corpuscular HGB Conc 34.4 % (30-36); Mean Corpuscular Hemoglobin 35.4 PG (26-34); Mean Corpuscular Volume 102.9 fL (80-100); Monocytes Absolute Auto 700 /uL (0-900); Monocytes Percent Auto 14.4 % (3-14); Neutrophils Absolute Auto 2700 /uL (1500-7000); Neutrophils Percent Auto 52.1 % (50-75); Platelet Count 70 X10^3/uL (150-400); Red Blood Cell Count 2.28 X10^6/uL (4.0-5.2); White Blood Cell Count 5.1 X10^3/uL (4.5-11.0)
[2019-06-06 11:30] LABS: Prothrombin Time 22.9 SECONDS (10.1-12.7)
[2019-06-06 11:36] LABS: Alanine Aminotransferase 47 IU/L (<35); Albumin 2.6 g/dL (3.5-5.0); Alkaline Phosphatase 188 U/L (38-126); Aspartate Aminotransferase 72 IU/L (14-36); BUN Creatinine Ratio 16.2 (6-22); Bilirubin Total 3.2 mg/dL (0.2-1.3); Blood Urea Nitrogen 11 mg/dL (7-17); Calcium 8.3 mg/dL (8.4-10.2); Carbon Dioxide 22 mmol/L (22-32); Chloride 104 mmol/L (98-107); Estimated Glomerular Filt Rate > 60.0 mL/min (>60); Globulin 2.7 g/dL (1.7-4.1); Glucose 147 mg/dL (70-100); HEMOLYSIS < 15 (0-50); Potassium 4.3 mmol/L (3.4-5.1); Sodium 132 mmol/L (137-145); Total Protein 5.3 g/dL (6.3-8.2)
== END ==
PROVIDERS: PCP Internal Medicine; Referring Provider Internal Medicine; Visit Provider Internal Medicine
DX: K21.9 Gastro-esophageal reflux disease without esophagitis (principal); K70.10 Alcoholic hepatitis without ascites; K70.11 Alcoholic hepatitis with ascites
CPT/HCPCS: 80053; 85025; 85610

== ENCOUNTER 2019-06-13 11:53 | Emergency (ER) | payer OTHER, MEDICAID, SELFPAY ==
[2019-02-28 13:29] VITALS: BMI 27.5
[2019-06-13 11:43] VITALS: BP 108/60; PULSE 126; RESP 16; TEMP 37; O2SAT 95; BMI 26.6
--- NOTE | 2019-06-13 11:52 | ED.SEIZURE ---
HPI - Seizure General Chief Complaint: Seizure Stated Complaint: Seizure Time Seen by Provider: 06/13/19 11:55 History of Present Illness HPI Narrative: 43-year-old woman with a history of alcohol use disorder and liver failure with new onset seizures in July of 2018 and no complicating issues since. She is not on any seizure medications. She and her were getting ready to go for a routine follow-up appointment with their doctor regarding her liver failure when she had a witnessed approximately 2 minute grand mal tonic-clonic type seizure. Her was immediately available and she did not fall or injure herself. Once medics arrived this seizure had stopped in she was described as significantly postictal period upon arrival in the emergency department she seems to be very close to her baseline. She notes that she was recently admitted for alcoholic cirrhosis and spent time at both [facility] as well as [facility]. She had an almost 50 lb water weight gain and over the past 2 weeks she has lost at least 25 lb. She currently is on 40 mg b.i.d. of Lasix. She describes an episode 48 hours ago where she was taking food out of the oven and her entire body ?locked up and felt like it was seizing? she remained cognitively aware throughout this but unable to move for approximately 5 minutes. With this episode she did fall backwards and hit her head. She notes that she has been feeling more jittery over the last 48 hours. She is very proud of her 11 months of sobriety and denies any recent alcohol use. She notes that she will occasionally use 0.5 mg of lorazepam at bedtime but this is not a regular occurrence. With a recent hospitalization her lactulose had been discontinued Related Data Home Medications Medication Instructions Recorded Confirmed Adult Multivitamin Gummies 1 tab PO DAILY 08/14/18 06/07/19 fluticasone 500 mcg-salmeterol 50 1 inhalation INHALATION DAILY each 05/24/19 06/07/19 mcg/dose blistr powdr for inhalation ferrous sulfate 325 mg (65 mg 325 mg PO DAILY 06/07/19 06/07/19 iron) tablet furosemide 20 mg tablet 40 mg PO TID tab 06/07/19 06/07/19 omeprazole 20 mg capsule,delayed 20 mg PO DAILY 06/07/19 06/07/19 release rifaximin 550 mg tablet 550 mg PO BID tab 06/07/19 06/07/19 simethicone 80 mg chewable tablet 80 mg PO QID PRN tab 06/07/19 06/07/19 Previous Rx's Medication Instructions Recorded spironolactone 100 mg tablet 100 mg PO TID #360 tab 01/24/19 clotrimazole-betamethasone 1 1 applictn TOP BID #45 gram 04/11/19 %-0.05 % topical cream quetiapine 25 mg tablet 25 mg PO BEDTIME #30 tab 05/17/19 lorazepam 0.5 mg tablet 0.5 mg PO BEDTIME PRN #30 tab 05/24/19 metformin 500 mg tablet 250 mg PO DAILY #30 tab 05/24/19 nortriptyline 25 mg capsule 25 mg PO BEDTIME #90 cap 06/07/19 topiramate 50 mg PO BID #60 tab 06/13/19 Allergies Allergy/AdvReac Type Severity Reaction Status Date / Time aspirin AdvReac Unknown Verified 06/07/19 09:51 Review of Systems Review of Systems Narrative: Recent hospitalizations with significant weight fluctuations due to ascites and lower extremity edema. Complains of abdominal fullness that has been improving and notes significant improvement in her recent lower extremity edema No fever, cough, chills, dyspnea, no chest pain, no increased jaundice All systems reviewed and are unremarkable except as noted in HPI and below Patient History Medical History Alcoholic hepatitis (Chronic) Alcoholism in remission (Chronic) Allergic rhinitis (Chronic) Asthma (Chronic) Bipolar disorder (Chronic) Bruises easily (Acute) Chronic migraine (Chronic) Dizziness (Acute) Duodenal ulcer (Chronic 09/2009) 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) Former smoker (Acute) Gastro-esophageal reflux (Chronic 12/31/10) History of UTI (Acute) Major depressive disorder, recurrent, moderate (Chronic 12/31/10) Seizure (Acute ~07/11/18) Surgical History History of cholecystectomy (Acute) Status post endoscopy (Resolved 09/2009) Family History Other Alcoholism Asthma Social History household members: significant other Smoking Status: Former smoker alcohol intake: former Exam Narrative Exam Narrative: General: no acute distress. Able to give a complete and coherent history. HEENT: Moist mucous membranes, icteric sclera with reactive pupils, Neck: No JVD, supple Respiratory: Lungs are clear to auscultation, no wheezing no rales no rhonchi. Full and symmetrical air movement Cardiac: Tachycardic but regular and without murmur, no bruits Abdomen: Soft nontender good bowel tones, no flank pain, no significant abdominal distension or traumatic ascites Skin: Warm and dry, mild jaundice, multiple telangiectasias Neurologic: Grossly neurologically intact with no obvious asymmetries or abnormalities, symmetric mild hyper reflexia of all extremities, mild hand tremor bilaterally Extremities: Contusion to the left elbow, well perfused, no lower extremity edema Psych: Cooperative, anxious with appropriate insight Initial Vital Signs Initial Vital Signs: Vital Signs Temperature 98.6 F 06/13/19 11:43 Pulse Rate 126 H 06/13/19 11:43 Respiratory Rate 16 06/13/19 11:43 Blood Pressure 108/60 06/13/19 11:43 Pulse Oximetry 95 06/13/19 11:43 Course Orders Ordered: ED Orders 06/13/19 12:02 Complete Blood Count AUTO DIFF Stat Comprehensive Metabolic Panel Stat Ethanol (ETOH) Stat Magnesium Stat Prolactin Stat 06/13/19 12:11 CT head/brain wo con Stat 06/13/19 12:22 Ammonia (NH3) Stat 06/13/19 13:07 Urinalysis Screen (Dip Only) Stat Urine Drug Screen, Rapid Stat Discontinued Medications Sodium Chloride (Normal Saline 0.9%) 1,000 mls @ 1,000 mls/hr IV BOLUS ONE Stop: 06/13/19 13:09 Last Infusion: 06/13/19 14:37 Dose: 0 mls/hr Documented by: Admin: 06/13/19 12:18 Dose: 1,000 mls/hr Documented by: MICAELA Lorazepam (Ativan) 1 mg IV NOW ONE Stop: 06/13/19 12:11 Last Admin: 06/13/19 12:18 Dose: 1 mg Documented by: MICAELA Vital Signs Vital signs: Vital Signs - 8 hr 06/13/19 11:43 06/13/19 13:11 06/13/19 14:35 Temperature 98.6 F Pulse Rate 126 H 104 H 102 H Respiratory Rate 16 16 27 H Blood Pressure 108/60 Blood Pressure [Left Arm] 102/55 L Pulse Oximetry 95 97 95 06/13/19 14:44 Temperature Pulse Rate 110 H Respiratory Rate 16 Blood Pressure 96/56 L Blood Pressure [Left Arm] Pulse Oximetry 97 MDM - Seizure Medical Records Attestation: I reviewed the patient's medical records. Lab Data Attestation: I reviewed the patient's lab results. Lab results narrative: Chronic anemia, stable Elevated protime at 22.9 without evidence of active bleeding Increasing bilirubin of 4.2 increasing transaminases as well as alkaline phosphatase Elevated procalcitonin consistent with a seizure Normal calcium and magnesium levels Mild hyponatremia that seems chronic and consistent Result diagrams: 06/13/19 12:02 06/13/19 12:02 Labs: Lab Results 06/13/19 06/13/19 06/13/19 Range/Units 12:02 12:02 12:22 WBC 6.8 (4.5-11.0) X10^3/uL RBC 2.66 L (4.0-5.2) X10^6/uL Hgb 9.3 L (12.0-16.0) g/dL Hct 27.2 L (36-46) % MCV 102.2 H (80-100) fL MCH 35.1 H (26-34) PG MCHC 34.4 (30-36) % RDW 19.6 H (11.6-14.8) % Plt Count 114 L (150-400) X10^3/uL Neut % (Auto) Not Reportable Lymph % (Auto) Not Reportable Mcpherson % (Auto) Not Reportable Eos % (Auto) Not Reportable Baso % (Auto) Not Reportable Lymph # (Auto) Not Reportable Mcpherson # (Auto) Not Reportable Baso # (Auto) Not Reportable Total Counted 100 Seg Neutrophils % 42.0 (38-70) % Lymphocytes % (Manual) 25.0 (25-45) % Atypical Lymphs % 9.0 H ( - 0) % Monocytes % (Manual) 19.0 H (2-11) % Eosinophils % (Manual) 3.0 (2-4) % Basophils % (Manual) 2.0 H (0-1) % Neutrophils # (Manual) 2856 L (6362-6417) /uL RBC Morphology Not Reportable Poikilocytosis 1+ H Anisocytosis 2+ H Sodium 132 L (137-145) mmol/L Potassium 4.4 (3.4-5.1) mmol/L Chloride 99 (98-107) mmol/L Carbon Dioxide 19 L (22-32) mmol/L BUN 15 (7-17) mg/dL Creatinine 0.67 (0.52-1.04) mg/dL Estimated GFR > 60.0 (>60) mL/min BUN/Creatinine Ratio 22.4 H (6-22) Glucose 101 H (70-100) mg/dL Calcium 9.1 (8.4-10.2) mg/dL Magnesium 1.6 (1.6-2.3) mg/dL Total Bilirubin 4.2 H (0.2-1.3) mg/dL AST 100 H (14-36) IU/L ALT 53 H (<35) IU/L Alkaline Phosphatase 210 H (38-126) U/L Ammonia 26 (9-30) umol/L Total Protein 6.3 (6.3-8.2) g/dL Albumin 3.2 L (3.5-5.0) g/dL Globulin 3.1 (1.7-4.1) g/dL Albumin/Globulin Ratio 1.0 (1.0-2.8) Prolactin 187.3 H (3.0-18.6) ng/mL Urine Color Urine Appearance Urine pH (4.5-8.0) Ur Specific [place] (1.000-1.035) Urine Protein (Negative) Urine Glucose (UA) (Negative) g/dL Urine Ketones (NEGATIVE) Urine Occult Blood (Negative) Urine Nitrate (Negative) Urine Bilirubin (NEGATIVE) Urine Urobilinogen (0.2) E.U./dL Ur Leukocyte Esterase (NEGATIVE) U Opiates 300ng/mL cut (Negative) Ur Oxycodone Screen (Negative) Urine Methadone Screen (Negative) Ur Barbiturates Screen (Negative) U Tricyclic Antidepress (Negative) Ur Phencyclidine Scrn (Negative) Ur Amphetamines Screen (Negative) U Methamphetamines Scrn (Negative) Ur MDMA Scrn (Ecstasy) (Negative) U Benzodiazepines Scrn (Negative) Urine Cocaine Screen (Negative) U Marijuana (THC) Screen (Negative) Ethyl Alcohol < 10 ( - 10) mg/dL 06/13/19 06/13/19 Range/Units 13:07 13:07 WBC (4.5-11.0) X10^3/uL RBC (4.0-5.2) X10^6/uL Hgb (12.0-16.0) g/dL Hct (36-46) % MCV (80-100) fL MCH (26-34) PG MCHC (30-36) % RDW (11.6-14.8) % Plt Count (150-400) X10^3/uL Neut % (Auto) Lymph % (Auto) Mcpherson % (Auto) Eos % (Auto) Baso % (Auto) Lymph # (Auto) Mcpherson # (Auto) Baso # (Auto) Total Counted Seg Neutrophils % (38-70) % Lymphocytes % (Manual) (25-45) % Atypical Lymphs % ( - 0) % Monocytes % (Manual) (2-11) % Eosinophils % (Manual) (2-4) % Basophils % (Manual) (0-1) % Neutrophils # (Manual) ([id number]) /uL RBC Morphology Poikilocytosis Anisocytosis Sodium (137-145) mmol/L Potassium (3.4-5.1) mmol/L Chloride (98-107) mmol/L Carbon Dioxide (22-32) mmol/L BUN (7-17) mg/dL Creatinine (0.52-1.04) mg/dL Estimated GFR (>60) mL/min BUN/Creatinine Ratio (6-22) Glucose (70-100) mg/dL Calcium (8.4-10.2) mg/dL Magnesium (1.6-2.3) mg/dL Total Bilirubin (0.2-1.3) mg/dL AST (14-36) IU/L ALT (<35) IU/L Alkaline Phosphatase (38-126) U/L Ammonia (9-30) umol/L Total Protein (6.3-8.2) g/dL Albumin (3.5-5.0) g/dL Globulin (1.7-4.1) g/dL Albumin/Globulin Ratio (1.0-2.8) Prolactin (3.0-18.6) ng/mL Urine Color Yellow Urine Appearance Clear Urine pH 6.5 (4.5-8.0) Ur Specific [place] 1.015 (1.000-1.035) Urine Protein Negative (Negative) Urine Glucose (UA) Negative (Negative) g/dL Urine Ketones Negative (NEGATIVE) Urine Occult Blood Negative (Negative) Urine Nitrate Negative (Negative) Urine Bilirubin Negative (NEGATIVE) Urine Urobilinogen 0.2 (0.2) E.U./dL Ur Leukocyte Esterase Negative (NEGATIVE) U Opiates 300ng/mL cut Negative (Negative) Ur Oxycodone Screen Negative (Negative) Urine Methadone Screen Negative (Negative) Ur Barbiturates Screen Negative (Negative) U Tricyclic Antidepress Positive H (Negative) Ur Phencyclidine Scrn Negative (Negative) Ur Amphetamines Screen Negative (Negative) U Methamphetamines Scrn Negative (Negative) Ur MDMA Scrn (Ecstasy) Negative (Negative) U Benzodiazepines Scrn Negative (Negative) Urine Cocaine Screen Negative (Negative) U Marijuana (THC) Screen Negative (Negative) Ethyl Alcohol ( - 10) mg/dL Point of Care Testing Glucose POC 104 Urine Dip Bedside Urine Glucose Negative Bedside Urine Bilirubin - Negative Bedside Urine Ketone - Negative Urine Specific [place] 1.015 Bedside Urine Occult Blood - Negative Bedside Urine pH 6.0 Bedside Urine Protein - Negative Bedside Urine Urobilinogen - Negative Bedside Urine Nitrite - Negative Bedside Urine Leukocytes - Negative Esterase Imaging Data CT scan - head: Radiologist's Impression: IMPRESSION: Negative for acute stroke, hemorrhage, or mass. No evidence of significant intracranial sequelae of acute trauma. Dictated by: Lm Villasenor M.D. on 06/13/2019 at 12:34 MDM Narrative Medical decision making narrative: Worsening transaminases, alkaline phosphatase and bilirubin. Most recent abdominal imaging was May 24 which revealed ascites and cirrhosis as well as surgically absent gallbladder. She was scheduled for follow-up gastroenterology appointment today and unfortunately had this seizure and is now being evaluated in the emergency department. Electrolytes are reassuring and do not appear to be an obvious cause of her seizure. There is no evidence of acute infection or withdrawal syndrome or alcohol-related seizures. Ammonia level is within normal limits at 26 suggesting that the rifaximin is adequate and she is not suffering from hepatic encephalopathy. Head imaging is unremarkable today with no evidence of trauma or intracranial bleeding. She have a history of 2 prior seizures a year ago that are related to acute alcohol withdrawal. This is her 1st non alcohol related seizure. With no obvious inciting etiologies will not begin any medications at this point. Will ask her to reschedule her gastroenterology appointment given the increasing liver enzymes. Will also ask her to follow-up with her primary care physician. Should she have a recurrent seizure she will need to be re-evaluated in the emergency department. Findings are reviewed with patient questions are answered she is safe for home discharge at this time. 2pm Talked with Dr Rahman, [facility] regarding the seizure and the tremor. Given her risk of harm from falling with a seizure and coagulopathy/thrombocytopenia due to liver disease treating for siezure prevention may be appropriate. In light of the benign essential tremor that seems to be developing as well Topamax may be reasonable option for treating both. His recommendation was to start at 50 mg at bedtime for a week and then increase to 50 mg twice a day. He also recommended outpatient neurology follow-up and brain MRI and EEG. If she truly is developing epileptic seizures then she will need a higher dose of Topamax. A discussion of benign essential tremor versus tremor related to acute alcohol withdrawal is again entertained. Chencho is 100% adamant that she has not had alcohol for 11 months. Given no tremor at rest at all, normalizing vital signs and normal overall sensorium I am inclined to believe her. Discharge Plan Departure Patient Disposition: Home Clinical Impression: Seizure, Intention tremor Alcoholic cirrhosis Qualifiers: Ascites presence: with ascites Qualified Code(s): K70.31 - Alcoholic cirrhosis of liver with ascites Anemia Qualifiers: Anemia type: unspecified type Qualified Code(s): D64.9 - Anemia, unspecified Discharge Date/Time: 06/13/19 14:44 Instructions: DI for Seizure (Not Epilepsy/Seizure Disorder), Topiramate (By mouth) Activity Restrictions/Additional Instructions: Thank you for coming in today I am not finding in acute reason to explain the seizure that you experienced today. After your fall 2 days ago, your head CT does not show any bleeding or trauma. There is no signs of acute infection. 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 Please call and reschedule the appointment that you missed today because of this ER visit. I am not going to make any changes to medications at this time, please continue all as prescribed Please follow-up with your primary care physician within the next few days If you do have another seizure you do need to return to the emergency department. I discussed your case with one of my neurology colleagues at [facility]. His recommendation was to start a seizure medication, given your baseline liver disease and risk of bleeding if you are to have a significant fall. We also discussed the tremor that you have and opted to choose Topamax/topiramate to help with both problems. At high doses people can notice tingling in your fingers and your toes. We are recommending very low doses to start. For the 1st week begin with 50 mg at night and then increase to 50 mg twice a day. As an outpatient, you will likely benefit from a neurology consultation and may end up needing both a brain MRI as well as an EEG to fully diagnose and treat your seizures. Congratulations on your 11 months of sobriety! I wish you the best. Prescriptions: New topiramate 50 mg tablet 50 mg PO BID Qty: 60 RF: 0 No Action quetiapine 25 mg tablet 25 mg PO BEDTIME Qty: 30 RF: 3 fluticasone propion-salmeterol 500-50 mcg/dose blister with device 1 inhalation INHALATION DAILY RF: 0 metformin 500 mg tablet 250 mg PO DAILY Qty: 30 RF: 3 lorazepam 0.5 mg tablet 0.5 mg PO BEDTIME PRN (Reason: sleep) Qty: 30 RF: 0 spironolactone 100 mg tablet 100 mg PO TID Qty: 360 RF: 3 clotrimazole-betamethasone 1-0.05 % cream 1 applictn TOP BID Qty: 45 RF: 3 ferrous sulfate 325 mg (65 mg iron) tablet 325 mg PO DAILY RF: 0 omeprazole 20 mg capsule,delayed release(DR/EC) 20 mg PO DAILY RF: 0 Xifaxan 550 mg tablet 550 mg PO BID RF: 0 simethicone 80 mg tablet,chewable 80 mg PO QID PRNRF: 0 furosemide 20 mg tablet 40 mg PO TID RF: 0 nortriptyline 25 mg capsule 25 mg PO BEDTIME Qty: 90 RF: 3 Adult Multivitamin Gummies 200 mcg Tablet,Chewable 1 tab PO DAILY RF: 0 Referrals: Nahum Oakley MD [Primary Care Provider] -
[2019-06-13 12:10] LABS: Hematocrit 27.2 % (36-46); Hemoglobin 9.3 g/dL (12.0-16.0); Mean Corpuscular HGB Conc 34.4 % (30-36); Mean Corpuscular Hemoglobin 35.1 PG (26-34); Mean Corpuscular Volume 102.2 fL (80-100); Platelet Count 114 X10^3/uL (150-400); Red Blood Cell Count 2.66 X10^6/uL (4.0-5.2); Red Cell Distribution Width 19.6 % (11.6-14.8); White Blood Cell Count 6.8 X10^3/uL (4.5-11.0)
--- NOTE | 2019-06-13 12:11 | DI.CT.S_ITS ---
PROCEDURE: CT HEAD/BRAIN WO CON INDICATIONS: head trauma 48hrs ago, seizure today TECHNIQUE: Noncontrast 4.5 mm thick angled axial sections acquired from the foramen magnum to the vertex, with coronal and sagittal reformats. For radiation dose reduction, the following was used: automated exposure control, adjustment of mA and/or kV according to patient size. COMPARISON: [facility], CT, CT HEAD/BRAIN WO CON, 07/13/2018, 18:37. FINDINGS: Image quality: Excellent. CSF spaces: Basal cisterns are patent. No extra-axial fluid collections. Ventricles are normal in size and shape. Brain: No midline shift. No intracranial masses or hemorrhage. De [place] Garza-white matter interface is normal. Skull and face: Calvarium and visualized facial bones are intact, without suspicious lesions. Sinuses: Visualized sinuses and mastoids are clear. IMPRESSION: Negative for acute stroke, hemorrhage, or mass. No evidence of significant intracranial sequelae of acute trauma. Dictated by: Lm Villasenor M.D. on 06/13/2019 at 12:34 Approved by: Lm Villasenor M.D. on 06/13/2019 at 12:35
[2019-06-13 12:12] LABS: Add Manual Diff / Slide Review YES
[2019-06-13] MEDS: SODIUM CHLORIDE 0.9% 1,000 ML 1000 ML IV (12:18)
[2019-06-13] MEDS: LORazepam 2 MG/ML INJ 1 MG IV (12:18)
[2019-06-13 12:21] LABS: Alanine Aminotransferase 53 IU/L (<35); Albumin 3.2 g/dL (3.5-5.0); Alkaline Phosphatase 210 U/L (38-126); Aspartate Aminotransferase 100 IU/L (14-36); BUN Creatinine Ratio 22.4 (6-22); Bilirubin Total 4.2 mg/dL (0.2-1.3); Blood Urea Nitrogen 15 mg/dL (7-17); Calcium 9.1 mg/dL (8.4-10.2); Carbon Dioxide 19 mmol/L (22-32); Chloride 99 mmol/L (98-107); Estimated Glomerular Filt Rate > 60.0 mL/min (>60); Ethanol (ETOH) < 10 mg/dL; Globulin 3.1 g/dL (1.7-4.1); Glucose 101 mg/dL (70-100); HEMOLYSIS 29 (0-50); Magnesium 1.6 mg/dL (1.6-2.3); Potassium 4.4 mmol/L (3.4-5.1); Sodium 132 mmol/L (137-145); Total Protein 6.3 g/dL (6.3-8.2)
[2019-06-13 12:27] LABS: Anisocytosis 2+; Neutrophils Absolute Manual 2856 /uL (3000-5900); Poikilocytosis 1+; Total Cells Counted 100
[2019-06-13 12:38] LABS: Prolactin 187.3 ng/mL (3.0-18.6)
[2019-06-13 12:38] LABS: Ammonia (NH3) 26 umol/L (9-30)
[2019-06-13 13:11] VITALS: BP 102/55; PULSE 104; RESP 16; O2SAT 97
[2019-06-13 13:26] LABS: Appearance Urine UA CLEAR; Bilirubin Urine UA NEGATIVE (NEGATIVE); Color Urine UA YELLOW; Glucose Urine UA NEGATIVE (Negative); Ketones Urine UA NEGATIVE (NEGATIVE); Leukocyte Esterase Urine UA NEGATIVE (NEGATIVE); Nitrite Urine UA NEGATIVE (Negative); Occult Blood Urine UA NEGATIVE (Negative); Protein Urine UA NEGATIVE (Negative); Specific Gravity Urine UA 1.015 (1.000-1.035); Urobilinogen Urine UA 0.2 E.U./dL (0.2)
[2019-06-13 13:27] LABS: pH Urine UA 6.5 (4.5-8.0)
[2019-06-13 13:28] LABS: UR Morphine/Opiate cutoff 300 Negative (Negative); Ur Creatinine Normal (Normal); Ur Specific Gravity Normal (Normal); Urine Amphetamines Negative (Negative); Urine Barbiturates Negative (Negative); Urine Benzodiazepines Negative (Negative); Urine Cocaine Negative (Negative); Urine MDMA Negative (Negative); Urine Methadone Negative (Negative); Urine Methamphetamines Negative (Negative); Urine Oxycodone Negative (Negative); Urine Phencyclidine Negative (Negative); Urine Tetrahydrocannabinol Negative (Negative); Urine Tricyclic Antidepressant Positive (Negative); Urine pH Normal (Normal)
[2019-06-13 14:35] VITALS: PULSE 102; RESP 27; O2SAT 95
[2019-06-13 14:44] VITALS: BP 96/56; PULSE 110; RESP 16; O2SAT 97
== END 2019-06-13 14:44 | disposition home or self-care (01) ==
PROVIDERS: Emergency Provider Emergency Medicine; PCP Internal Medicine
DX: R56.9 Unspecified convulsions (principal); G25.2 Other specified forms of tremor; K70.31 Alcoholic cirrhosis of liver with ascites; D64.9 Anemia, unspecified
CPT/HCPCS: 36415; 70450; 80053; 80305; 80320; 81003; 82140; 82962; 83735; 84146; 85025; 96361; 96374; 99284; J2060

== ENCOUNTER → 2019-06-19 10:16 | Outpatient (CLI) | payer OTHER, MEDICAID, SELFPAY ==
[2019-02-28 13:29] VITALS: BMI 27.5
[2019-06-19 12:24] LABS: Alanine Aminotransferase 71 IU/L (<35); Albumin 3.6 g/dL (3.5-5.0); Alkaline Phosphatase 237 U/L (38-126); Aspartate Aminotransferase 95 IU/L (14-36); BUN Creatinine Ratio 25.3 (6-22); Bilirubin Conjugated 0.3 md/dL (0.0-0.3); Bilirubin Total 6.6 mg/dL (0.2-1.3); Bilirubin Unconjugated 4.3 mg/dL (0.0-1.1); Blood Urea Nitrogen 22 mg/dL (7-17); Calcium 9.5 mg/dL (8.4-10.2); Carbon Dioxide 21 mmol/L (22-32); Chloride 96 mmol/L (98-107); Estimated Glomerular Filt Rate > 60.0 mL/min (>60); Globulin 3.5 g/dL (1.7-4.1); Glucose 134 mg/dL (70-100); HEMOLYSIS < 15 (0-50); Potassium 4.6 mmol/L (3.4-5.1); Sodium 127 mmol/L (137-145); Total Protein 7.1 g/dL (6.3-8.2)
== END ==
PROVIDERS: PCP Internal Medicine; Referring Provider Internal Medicine; Visit Provider Internal Medicine
DX: R56.9 Unspecified convulsions (principal); D64.9 Anemia, unspecified; K70.11 Alcoholic hepatitis with ascites; K70.30 Alcoholic cirrhosis of liver without ascites
CPT/HCPCS: 36415; 80053; 80076

== ENCOUNTER → 2019-06-19 16:38 | Outpatient (CLI) | payer OTHER, MEDICAID, SELFPAY ==
[2019-02-28 13:29] VITALS: BMI 27.5
[2019-06-19 17:29] LABS: Alanine Aminotransferase 71 IU/L (<35); Albumin 3.8 g/dL (3.5-5.0); Albumin Globulin Ratio 1.1 (1.0-2.8); Alkaline Phosphatase 241 U/L (38-126); Aspartate Aminotransferase 94 IU/L (14-36); BUN Creatinine Ratio 26.4 (6-22); Bilirubin Total 6.7 mg/dL (0.2-1.3); Blood Urea Nitrogen 24 mg/dL (7-17); Calcium 9.4 mg/dL (8.4-10.2); Carbon Dioxide 19 mmol/L (22-32); Chloride 98 mmol/L (98-107); Estimated Glomerular Filt Rate > 60.0 mL/min (>60); Globulin 3.5 g/dL (1.7-4.1); Glucose 159 mg/dL (70-100); HEMOLYSIS < 15 (0-50); Potassium 4.2 mmol/L (3.4-5.1); Sodium 127 mmol/L (137-145); Total Protein 7.3 g/dL (6.3-8.2)
== END ==
PROVIDERS: PCP Internal Medicine; Referring Provider Internal Medicine Gastroenterology; Visit Provider Internal Medicine Gastroenterology
DX: K70.30 Alcoholic cirrhosis of liver without ascites (principal); K70.11 Alcoholic hepatitis with ascites; R56.9 Unspecified convulsions; D64.9 Anemia, unspecified
CPT/HCPCS: 36415; 80053; 80076

== ENCOUNTER → 2019-06-29 11:01 | Outpatient (CLI) | payer OTHER, MEDICAID, SELFPAY ==
[2019-02-28 13:29] VITALS: BMI 27.5
[2019-06-29 11:21] LABS: Add Manual Diff / Slide Review NO; Basophils Absolute Auto 0 /uL (0-100); Basophils Percent Auto 0.6 % (0-2); Eosinophils Absolute Auto 200 /uL (0-450); Eosinophils Percent Auto 2.8 % (2-4); Lymphocytes Absolute Auto 1400 /uL (1100-4500); Lymphocytes Percent Auto 18.5 % (25-40); Mean Corpuscular HGB Conc 35.8 % (30-36); Mean Corpuscular Hemoglobin 35.4 PG (26-34); Mean Corpuscular Volume 98.9 fL (80-100); Monocytes Absolute Auto 1100 /uL (0-900); Monocytes Percent Auto 14.2 % (3-14); Neutrophils Absolute Auto 4800 /uL (1500-7000); Neutrophils Percent Auto 63.9 % (50-75); Platelet Count 107 X10^3/uL (150-400); Red Blood Cell Count 2.53 X10^6/uL (4.0-5.2); Red Cell Distribution Width 17.6 % (11.6-14.8); White Blood Cell Count 7.4 X10^3/uL (4.5-11.0)
[2019-06-29 11:28] LABS: INR 1.6 (0.9-1.3); Prothrombin Time 18.8 SECONDS (10.1-12.7)
[2019-06-29 11:39] LABS: Ammonia (NH3) 103 umol/L (9-30)
[2019-06-29 11:40] LABS: Alanine Aminotransferase 68 IU/L (<35); Albumin 3.2 g/dL (3.5-5.0); Alkaline Phosphatase 241 U/L (38-126); Aspartate Aminotransferase 90 IU/L (14-36); BUN Creatinine Ratio 29.2 (6-22); Bilirubin Unconjugated 3.2 mg/dL (0.0-1.1); Blood Urea Nitrogen 21 mg/dL (7-17); Calcium 8.9 mg/dL (8.4-10.2); Carbon Dioxide 17 mmol/L (22-32); Chloride 101 mmol/L (98-107); Estimated Glomerular Filt Rate > 60.0 mL/min (>60); Globulin 3.2 g/dL (1.7-4.1); Glucose 168 mg/dL (70-100); HEMOLYSIS < 15 (0-50); Potassium 4.6 mmol/L (3.4-5.1); Sodium 127 mmol/L (137-145); Total Protein 6.4 g/dL (6.3-8.2)
== END ==
PROVIDERS: PCP Internal Medicine; Referring Provider Internal Medicine; Visit Provider Internal Medicine
DX: D64.9 Anemia, unspecified (principal); G25.2 Other specified forms of tremor; K70.10 Alcoholic hepatitis without ascites; K70.30 Alcoholic cirrhosis of liver without ascites; R56.9 Unspecified convulsions
CPT/HCPCS: 36415; 80048; 80076; 82140; 85025; 85610

== ENCOUNTER → 2019-07-17 11:54 | Outpatient (CLI) | payer OTHER, MEDICAID, SELFPAY ==
[2019-02-28 13:29] VITALS: BMI 27.5
--- NOTE | 2019-07-17 11:55 | DI.MG.S_ITS ---
BILATERAL DIGITAL SCREENING MAMMOGRAM 3D/2D WITH CAD: 07/17/2019 CLINICAL: Routine screening. Baseline exam. No prior exams were available for comparison. The tissue of both breasts is heterogeneously dense. This may lower the sensitivity of mammography. Current study was also evaluated with a Computer Aided Detection (CAD) system. There is a benign vascular calcification in both breasts. There is an oval mass in the right breast at 6 o'clock middle depth. No other significant masses, calcifications, or other findings are seen in either breast. IMPRESSION: INCOMPLETE: NEEDS ADDITIONAL IMAGING EVALUATION The oval mass in the right breast likely represents a cyst and is indeterminate. Additional views with possible ultrasound are recommended. This exam was interpreted at Station ID: [id number]. NOTE: For mammograms, a report in lay terms will be sent to the patient. Approximately 15% of breast malignancies will not be visualized mammographically. In the management of a palpable breast mass, a negative mammogram must not discourage biopsy of a clinically suspicious lesion. Electronically Signed By: Audrey orellana/:07/17/2019 12:44:42 letter sent: Additional Imaging Needed ACR BI-RADS Category 0: Incomplete [id number]
== END ==
PROVIDERS: PCP Internal Medicine; Referring Provider Internal Medicine; Visit Provider Internal Medicine
DX: Z12.31 Encounter for screening mammogram for malignant neoplasm of breast (principal); K70.10 Alcoholic hepatitis without ascites; K74.60 Unspecified cirrhosis of liver
CPT/HCPCS: 77063; 77067

== ENCOUNTER → 2019-07-20 08:06 | Outpatient (CLI) | payer OTHER, MEDICAID, SELFPAY ==
[2019-02-28 13:29] VITALS: BMI 27.5
[2019-07-20 10:13] LABS: BUN Creatinine Ratio 40.5 (6-22); Blood Urea Nitrogen 30 mg/dL (7-17); Calcium 9.3 mg/dL (8.4-10.2); Carbon Dioxide 21 mmol/L (22-32); Chloride 103 mmol/L (98-107); Estimated Glomerular Filt Rate > 60.0 mL/min (>60); Glucose 119 mg/dL (70-100); HEMOLYSIS < 15 (0-50); Potassium 4.5 mmol/L (3.4-5.1); Sodium 134 mmol/L (137-145)
[2019-07-20 13:55] LABS: Collection Time Urine 24 Hours; Creatinine, Serum (CRCL) 0.82 mg/dL (0.52-1.04); Patient Height Urine 66 inches; Patient Weight Urine 157 lbs; Total Protein 24 Hour Urine 181 mg/day (42-225); Total Volume Urine 2590 mL
[2019-07-20 13:56] LABS: Creat Clearance, Corrected 61.8 mL/MIN; Creatinine Clearance Urine 64.3 mL/MIN; Creatinine Urine Random 29.3 mg/dL
== END ==
PROVIDERS: PCP Internal Medicine; Referring Provider Internal Medicine Gastroenterology; Visit Provider Internal Medicine Gastroenterology
DX: K70.30 Alcoholic cirrhosis of liver without ascites (principal)
CPT/HCPCS: 36415; 80048; 82575; 84156

== ENCOUNTER → 2019-07-25 12:15 | Outpatient (CLI) | payer OTHER, MEDICAID, SELFPAY ==
[2019-02-28 13:29] VITALS: BMI 27.5
[2019-07-25 13:32] LABS: INR 1.5 (0.9-1.3); Prothrombin Time 17.1 SECONDS (10.1-12.7)
[2019-07-25 13:40] LABS: Alanine Aminotransferase 76 IU/L (<35); Albumin 3.2 g/dL (3.5-5.0); Alkaline Phosphatase 337 U/L (38-126); Aspartate Aminotransferase 100 IU/L (14-36); BUN Creatinine Ratio 33.8 (6-22); Blood Urea Nitrogen 24 mg/dL (7-17); Calcium 8.7 mg/dL (8.4-10.2); Carbon Dioxide 20 mmol/L (22-32); Chloride 100 mmol/L (98-107); Estimated Glomerular Filt Rate > 60.0 mL/min (>60); Globulin 3.1 g/dL (1.7-4.1); Glucose 134 mg/dL (70-100); HEMOLYSIS < 15 (0-50); Sodium 128 mmol/L (137-145); Total Protein 6.3 g/dL (6.3-8.2)
[2019-07-25 13:46] LABS: Add Manual Diff / Slide Review NO; Basophils Absolute Auto 0 /uL (0-100); Basophils Percent Auto 0.6 % (0-2); Eosinophils Absolute Auto 200 /uL (0-450); Eosinophils Percent Auto 2.3 % (2-4); Hemoglobin 8.8 g/dL (12.0-16.0); Lymphocytes Absolute Auto 1500 /uL (1100-4500); Mean Corpuscular Hemoglobin 36.9 PG (26-34); Mean Corpuscular Volume 103.1 fL (80-100); Monocytes Absolute Auto 1400 /uL (0-900); Monocytes Percent Auto 17.1 % (3-14); Neutrophils Absolute Auto 4900 /uL (1500-7000); Platelet Count 87 X10^3/uL (150-400); Red Blood Cell Count 2.39 X10^6/uL (4.0-5.2); Red Cell Distribution Width 16.1 % (11.6-14.8); White Blood Cell Count 8.1 X10^3/uL (4.5-11.0)
[2019-07-25 13:48] LABS: Hematocrit 24.6 % (36-46); Mean Corpuscular HGB Conc 35.8 % (30-36)
== END ==
PROVIDERS: PCP Internal Medicine; Referring Provider Internal Medicine Gastroenterology; Visit Provider Internal Medicine Gastroenterology
DX: K72.91 Hepatic failure, unspecified with coma (principal); K70.10 Alcoholic hepatitis without ascites; K70.30 Alcoholic cirrhosis of liver without ascites
CPT/HCPCS: 36415; 80053; 85025; 85610

== ENCOUNTER → 2019-08-01 08:41 | Outpatient (CLI) | payer OTHER, MEDICAID, SELFPAY ==
[2019-02-28 13:29] VITALS: BMI 27.5
--- NOTE | 2019-08-01 08:50 | DI.US.S_ITS ---
LIMITED ULTRASOUND OF RIGHT BREAST: 08/01/2019 CLINICAL: Patient returns today to evaluate a density in the right breast. Comparison is made to exams dated: 08/01/2019 mammogram and 07/17/2019 mammogram - [facility]. Color flow and real-time ultrasound of the right breast 5-6 o'clock region were performed. De La Garza scale images of the real-time examination were reviewed. There is a benign 0.4 cm x 0.3 cm x 0.3 cm round cyst in the right breast at 6 o'clock middle depth 5 cm from the nipple. This round cyst is anechoic with a well-defined boundary. Reverberation artifact noted due to small size. This correlates with mammography findings. Color flow imaging demonstrates that there is no vascularity present. Similar appearing adjacent simple cyst at 5:30 o'clock 5 cm from the nipple measuring 0.3 cm. IMPRESSION: BENIGN There is no sonographic evidence of malignancy. Two small simple cysts in the inferior right breast measuring 0.4 cm or less are benign. Return to annual mammogram screening schedule is recommended. Exam findings conveyed to the patient by the digital strategist. This exam was interpreted at Station ID: [id number]. Electronically Signed By: Ernie Ferguson M.D. slc/:08/01/2019 10:02:50 copy to: Meron Lopez MD, [facility], ph: [phone], fax: [phone] letter sent: Normal Exam Ultrasound BI-RADS: 2 Benign
--- NOTE | 2019-08-01 08:50 | DI.MG.S_ITS ---
UNILATERAL RIGHT DIGITAL DIAGNOSTIC MAMMOGRAM 3D/2D WITH ADDITIONAL VIEWS: 08/01/2019 CLINICAL: Additional evaluation requested from prior study. Comparison is made [facility]. The tissue of right breast is heterogeneously dense. This may lower the sensitivity of mammography. There is a benign vascular calcification in the right breast. There is a 0.4 cm round circumscribed mass in the right breast at 6 o'clock middle depth. There is an additional adjacent mass which is circumscribed and measuring 0.4 cm. These are seen in additional views. No other significant masses or calcifications are seen in the breast. IMPRESSION: INCOMPLETE: NEEDS ADDITIONAL IMAGING EVALUATION The 0.4 cm oval masses in the right breast likely represents a cysts and are indeterminate. A targeted ultrasound is recommended and will immediately follow. This exam was interpreted at Station ID: [id number]. NOTE: For mammograms, a report in lay terms will be sent to the patient. Approximately 15% of breast malignancies will not be visualized mammographically. In the management of a palpable breast mass, a negative mammogram must not discourage biopsy of a clinically suspicious lesion. Electronically Signed By: Ernie Ferguson M.D. slc/:08/01/2019 09:58:08 copy to: Meron Lopez MD, [facility], ph: [phone], fax: [phone] ACR BI-RADS Category 0: Incomplete [id number]
== END ==
PROVIDERS: PCP Internal Medicine; Referring Provider Internal Medicine; Visit Provider Internal Medicine
DX: R92.8 Other abnormal and inconclusive findings on diagnostic imaging of breast (principal); R92.1 Mammographic calcification found on diagnostic imaging of breast; N60.01 Solitary cyst of right breast
CPT/HCPCS: 76642; 77065; G0279

== ENCOUNTER → 2019-08-05 12:51 | Outpatient (CLI) | payer OTHER, MEDICAID, SELFPAY ==
[2019-02-28 13:29] VITALS: BMI 27.5
== END ==
PROVIDERS: PCP Internal Medicine; Referring Provider Internal Medicine; Visit Provider Internal Medicine
DX: M85.851 Other specified disorders of bone density and structure, right thigh (principal); K70.10 Alcoholic hepatitis without ascites; K74.60 Unspecified cirrhosis of liver; E11.9 Type 2 diabetes mellitus without complications; Z87.891 Personal history of nicotine dependence
CPT/HCPCS: 77080

== ENCOUNTER → 2019-08-21 09:38 | Outpatient (CLI) | payer OTHER, MEDICAID, SELFPAY ==
[2019-02-28 13:29] VITALS: BMI 27.5
[2019-08-21 10:41] LABS: INR 1.5 (0.9-1.3); Prothrombin Time 17.7 SECONDS (10.1-12.7)
[2019-08-21 10:42] LABS: Add Manual Diff / Slide Review NO; Basophils Absolute Auto 0 /uL (0-100); Basophils Percent Auto 0.3 % (0-2); Eosinophils Absolute Auto 200 /uL (0-450); Eosinophils Percent Auto 2.3 % (2-4); Hemoglobin 9.1 g/dL (12.0-16.0); Lymphocytes Absolute Auto 1300 /uL (1100-4500); Lymphocytes Percent Auto 15.4 % (25-40); Mean Corpuscular HGB Conc 36.5 % (30-36); Mean Corpuscular Hemoglobin 37.7 PG (26-34); Mean Corpuscular Volume 103.3 fL (80-100); Monocytes Absolute Auto 1500 /uL (0-900); Monocytes Percent Auto 16.9 % (3-14); Neutrophils Absolute Auto 5600 /uL (1500-7000); Neutrophils Percent Auto 65.1 % (50-75); Platelet Count 82 X10^3/uL (150-400); Red Blood Cell Count 2.42 X10^6/uL (4.0-5.2); Red Cell Distribution Width 14.2 % (11.6-14.8); White Blood Cell Count 8.7 X10^3/uL (4.5-11.0)
[2019-08-21 11:02] LABS: Alanine Aminotransferase 66 IU/L (<35); Albumin 2.9 g/dL (3.5-5.0); Alkaline Phosphatase 317 U/L (38-126); Aspartate Aminotransferase 74 IU/L (14-36); BUN Creatinine Ratio 35.3 (6-22); Bilirubin Total 2.7 mg/dL (0.2-1.3); Blood Urea Nitrogen 24 mg/dL (7-17); Calcium 8.9 mg/dL (8.4-10.2); Carbon Dioxide 23 mmol/L (22-32); Chloride 100 mmol/L (98-107); Estimated Glomerular Filt Rate > 60.0 mL/min (>60); Globulin 2.9 g/dL (1.7-4.1); Glucose 113 mg/dL (70-100); HEMOLYSIS < 15 (0-50); Potassium 4.3 mmol/L (3.4-5.1); Sodium 129 mmol/L (137-145); Total Protein 5.8 g/dL (6.3-8.2)
== END ==
PROVIDERS: Internal Medicine Hematology & Oncology; PCP Internal Medicine; Referring Provider Internal Medicine Gastroenterology; Visit Provider Internal Medicine Gastroenterology
DX: K70.10 Alcoholic hepatitis without ascites (principal); K70.30 Alcoholic cirrhosis of liver without ascites
CPT/HCPCS: 36415; 80053; 85025; 85610

== ENCOUNTER 2019-08-31 11:27 | Emergency (ER) | payer OTHER, MEDICAID, SELFPAY ==
[2019-02-28 13:29] VITALS: BMI 27.5
[2019-08-31 11:33] VITALS: BP 95/53; PULSE 105; RESP 23; TEMP 36.9; O2SAT 100; BMI 25.8
--- NOTE | 2019-08-31 11:47 | ED.EXTPRO ---
HPI - Extremity Problem <Eileen Stewart PA-C - Last Filed: 08/31/19 19:31> General Chief complaint: Extremity Problem,Nontraumatic Stated complaint: rt leg painful Time Seen by Provider: 08/31/19 11:31 Source: patient Mode of arrival: Ambulatory Limitations: no limitations History of Present Illness HPI Narrative: Is a 43-year-old woman former smoker with a history of alcoholism, cirrhosis awaiting transplant, esophageal varices, seizure disorder, asthma, migraine, GERD who presents to the emergency department complaining of sudden onset pain in the front of her ankle that began last night. She says she was sitting on the couch watching TV when it suddenly became painful the pain is worse when she is walking or standing and is slightly improved when she is at rest. She says it is a constant sharp throbbing pain and is in the front of her ankle is a 6/10 at rest and it is more when she is actively using her foot and leg. She says she has never had anything like this previously, she denies any recent change in physical activity or anything that may have caused injury to the area. The pain remained constant this morning and seemed like it has been worsening today so her boyfriend advised her to come to the emergency department to be evaluated for a possible blood clot. She denies any other symptoms and has otherwise been feeling her normal self, this is an isolated complaint. MD Complaint: extremity pain Onset (ago): hour(s) (18) Pain Consistency: constant Location: right, lower extremity and other (Front of ankle) Severity scale (1-10): 6 Quality: stabbing and constant Radiation: distal (Radiates down into her foot, foot feels numb.) Relieving factors: nothing (Tried cold therapy without relief ) Exacerbating factors: range of motion, weight bearing, walking and palpation Associated symptoms: denies other symptoms Related Data Home Medications Medication Instructions Recorded Confirmed Adult Multivitamin Gummies 1 tab PO DAILY 08/14/18 07/17/19 fluticasone 500 mcg-salmeterol 50 1 inhalation INHALATION DAILY each 05/24/19 07/17/19 mcg/dose blistr powdr for inhalation ferrous sulfate 325 mg (65 mg 325 mg PO DAILY 06/07/19 07/17/19 iron) tablet furosemide 20 mg tablet 40 mg PO TID tab 06/07/19 07/17/19 omeprazole 20 mg capsule,delayed 20 mg PO DAILY 06/07/19 07/17/19 release rifaximin 550 mg tablet 550 mg PO BID tab 06/07/19 07/17/19 clotrimazole-betamethasone 1 1 applictn TOP BID PRN gram 07/17/19 %-0.05 % topical cream Previous Rx's Medication Instructions Recorded spironolactone 100 mg tablet 100 mg PO TID #360 tab 01/24/19 quetiapine 25 mg tablet 25 mg PO BEDTIME #30 tab 05/17/19 levetiracetam 500 mg tablet 500 mg PO BID #60 tab 06/25/19 nortriptyline 25 mg capsule 25 - 50 mg PO BEDTIME #180 cap 07/25/19 metformin 500 mg tablet 500 mg PO DAILY #30 tab 08/22/19 omeprazole 40 mg capsule,delayed 40 mg PO DAILY #90 cap 08/22/19 release Allergies Allergy/AdvReac Type Severity Reaction Status Date / Time aspirin AdvReac Unknown Verified 07/17/19 10:02 Review of Systems <Eileen Stewart PA-C - Last Filed: 08/31/19 19:31> Review of Systems Narrative: GENERAL: Denies chills, fatigue, malaise, fever, sweats. HEENT: Denies sinus pain, ear pain, sore throat, difficulty swallowing, dizziness. RESPIRATORY: Denies dyspnea, cough, wheezing, hemoptysis, sputum. CARDIOVASCULAR: Denies chest pain, palpitations, orthopnea, edema, GASTROINTESTINAL: Denies nausea, vomiting, abdominal pain, diarrhea, constipation, melena. : Denies dysuria, frequency, incontinence, hematuria, urinary retention. MUSCULOSKELETAL: Positive for pain in the front of her right ankle in the middle, denies weakness, joint pain, or bony pain SKIN: Denies rash, skin lesions, or other NEUROLOGIC: Denies weakness, headache, numbness, change in speech, confusion, seizures, incoordination. PSYCHIATRIC: No concerning psychosocial issues. 12 point review of systems is negative except for those stated above Patient History <Eileen Stewart PA-C - Last Filed: 08/31/19 19:31> Medical History Alcoholic hepatitis (Chronic) Alcoholism in remission (Chronic) Allergic rhinitis (Chronic) Asthma (Chronic) Bipolar disorder (Chronic) Bruises easily (Acute) Chronic migraine (Chronic) Cirrhosis (Chronic) Dizziness (Acute) Duodenal ulcer (Chronic 09/2009) Esophageal varices (Chronic) 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) Former smoker (Acute) Gastro-esophageal reflux (Chronic 12/31/10) History of UTI (Acute) Major depressive disorder, recurrent, moderate (Chronic 12/31/10) Seizure (Acute ~07/11/18) Seizure disorder (Chronic) Surgical History History of cholecystectomy (Acute) Status post endoscopy (Resolved 09/2009) Family History Other Alcoholism Asthma Social History household members: significant other Smoking Status: Former smoker alcohol intake: former Smoking Status: Former smoker alcohol intake frequency: other Substance Use Type: does not use Exam <Eileen Stewart PA-C - Last Filed: 08/31/19 19:31> Narrative Exam Narrative: GENERAL: 43 year old patient appears stated age. Well-nourished, slim patient, in mild distress. HEAD: Atraumatic. Normocephalic. EYES: Pupils equal round and reactive. Extraocular motions intact. No scleral icterus. No injection or drainage. ENT: Nose without bleeding, purulent drainage. Airway patent. NECK: Trachea midline. Non tender CARDIOVASCULAR: Regular rate and rhythm without murmurs, gallops, or rubs. RESPIRATORY: Clear to auscultation. Breath sounds equal bilaterally. No wheezes, rales, or rhonchi. EXTREMITIES: There is tenderness and slight swelling without discoloration in an area approximately 2 cm x 2 cm of the anterior distal tibia in the area of the anterior tibialis tendon. Range of motion is reduced 2nd to pain, dorsiflexion of the ankle increases pain plantar flexion moderately increases pain. Dorsalis pedis pulses are strong and equal bilaterally, capillary refill is less than 2 seconds bilaterally. There is no tenderness, swelling, pain or erythema of the right calf or about the right knee. No edema or joint tenderness. BACK: Nontender without deformity or crepitance. No flank tenderness. NEURO: AOx3. SKIN: No rash or erythema of visible areas, there is a small area of tenderness and non fluctuant swelling as above in extremities on the anterior ankle, bilateral feet and lower extremities are pink in color and warm. Initial Vital Signs Initial Vital Signs: Vital Signs Temperature 98.4 F 08/31/19 11:33 Pulse Rate 105 H 08/31/19 11:33 Respiratory Rate 23 08/31/19 11:33 Blood Pressure 95/53 L 08/31/19 11:33 Pulse Oximetry 100 08/31/19 11:33 <Nohelia Rivas MD - Last Filed: 09/02/19 18:48> Initial Vital Signs Initial Vital Signs: Vital Signs Temperature 98.4 F 08/31/19 11:33 Pulse Rate 105 H 08/31/19 11:33 Respiratory Rate 23 08/31/19 11:33 Blood Pressure 95/53 L 08/31/19 11:33 Pulse Oximetry 100 08/31/19 11:33 Course <Eileen Stewart PA-C - Last Filed: 08/31/19 19:31> Orders Ordered: Discontinued Medications Oxycodone HCl (Oxycontin) 10 mg PO NOW ONE Stop: 08/31/19 12:01 Last Admin: 08/31/19 12:06 Dose: 10 mg Documented by: MOON Vital Signs Vital signs: Vital Signs - 8 hr 08/31/19 11:33 08/31/19 13:06 08/31/19 13:15 Temperature 98.4 F 97.4 F L Pulse Rate 105 H 97 H 97 H Respiratory Rate 23 14 Blood Pressure 95/53 L 95/51 L Blood Pressure [Left Arm] 95/51 L Pulse Oximetry 100 96 96 <Nohelia Rivas MD - Last Filed: 09/02/19 18:48> Orders Ordered: Discontinued Medications Oxycodone HCl (Oxycontin) 10 mg PO NOW ONE Stop: 08/31/19 12:01 Last Admin: 08/31/19 12:06 Dose: 10 mg Documented by: MOON Vital Signs Vital signs: Vital Signs - 8 hr 08/31/19 11:33 08/31/19 13:06 08/31/19 13:15 Temperature 98.4 F 97.4 F L Pulse Rate 105 H 97 H 97 H Respiratory Rate 23 14 Blood Pressure 95/53 L 95/51 L Blood Pressure [Left Arm] 95/51 L Pulse Oximetry 100 96 96 MDM - Extremity (Nontraumatic) <Eileen Stewart PA-C - Last Filed: 08/31/19 19:31> Lab Data Result diagrams: 08/31/19 12:10 08/31/19 12:10 Labs: Lab Results 08/31/19 08/31/19 Range/Units 12:10 12:10 WBC 9.1 (4.5-11.0) X10^3/uL RBC 2.13 L (4.0-5.2) X10^6/uL Hgb 7.9 L (12.0-16.0) g/dL Hct 22.2 L (36-46) % MCV 102.8 H (80-100) fL MCH 36.9 H (26-34) PG MCHC 35.9 (30-36) % RDW 13.9 (11.6-14.8) % Plt Count 87 L (150-400) X10^3/uL Neut % (Auto) 61.1 (50-75) % Lymph % (Auto) 15.8 L (25-40) % Greene % (Auto) 19.8 H (3-14) % Eos % (Auto) 2.7 (2-4) % Baso % (Auto) 0.6 (0-2) % Neut # (Auto) 5600 (1819-3467) /uL Lymph # (Auto) 1400 (8886-1769) /uL Greene # (Auto) 1800 H (0-900) /uL Eos # (Auto) 200 (0-450) /uL Baso # (Auto) 100 (0-100) /uL Sodium 126 L (137-145) mmol/L Potassium 4.9 (3.4-5.1) mmol/L Chloride 99 (98-107) mmol/L Carbon Dioxide 20 L (22-32) mmol/L BUN 23 H (7-17) mg/dL Creatinine 0.63 (0.52-1.04) mg/dL Estimated GFR > 60.0 (>60) mL/min BUN/Creatinine Ratio 36.5 H (6-22) Glucose 136 H (70-100) mg/dL Calcium 8.8 (8.4-10.2) mg/dL Total Bilirubin 2.2 H (0.2-1.3) mg/dL AST 78 H (14-36) IU/L ALT 65 H (<35) IU/L Alkaline Phosphatase 330 H (38-126) U/L Total Protein 5.5 L (6.3-8.2) g/dL Albumin 2.9 L (3.5-5.0) g/dL Globulin 2.6 (1.7-4.1) g/dL Albumin/Globulin Ratio 1.1 (1.0-2.8) Imaging Data Extremity x-ray #1: Attestation: I personally reviewed and interpreted this imaging study as follows: Radiologist's Impression: [address] [address] XRay Report Signed Patient: Lanny Ashby EMR#: [id number] : 1975Acct:[id number] Age/Sex: 43 / FDate of Service: 08/31/19 Loc: ED Accession Number: [id number] Procedure: XR ankle RT min 3V Ordering Provider: Eileen Stewart P.A-C PROCEDURE: XR ANKLE RT MIN 3V INDICATIONS: acute atraumatic R anterior ankle pain TECHNIQUE: 3 views of the ankle were acquired. COMPARISON: None. FINDINGS: Bones: No fractures or dislocations. Ankle mortise is normally aligned. No suspicious bony lesions. Soft tissues: No tibiotalar joint effusion. Achilles tendon appears normal. IMPRESSION: No evidence acute bony abnormality of the right ankle. If clinical suspicion and/or symptoms persist, further assessment with repeat plain films, or advanced imaging (e.g., CT, MRI, or bone scan) may be helpful for further assessment. Dictated by: Lm Villasenor M.D. on 08/31/2019 at 11:02 Approved by: Lm Villasenor M.D. on 08/31/2019 at 11:02 US - DVT: Attestation: I personally reviewed and interpreted this imaging study as follows: MDM Narrative Medical decision making narrative: This is a 43-year-old woman with a history of alcoholic cirrhosis, alcoholism in remission, esophageal varices, and mild asthma who presents to the emergency department with complaints of a sudden onset right anterior ankle pain that began last night and has been constant. Differential diagnoses considered include pathologic fracture, anterior tibialis tendinitis, muscle strain, sprain, DVT, stress fracture, neuropathy. Had very low suspicion for DVT or other vascular issue based on exam. Patient reported foot feels numb, however sensation is intact. I strongly suspect a tendinitis, x-ray was unremarkable as was DVT ultrasound which also looked at the area of pain and the muscles of the ankle. Plan to discharge with PCP follow up, ankle walking boot, gentle range of motion exercises. 3 day course oxycodone. Emergency return precautions provided. <Nohelia Rivas MD - Last Filed: 09/02/19 18:48> Lab Data Labs: Lab Results 08/31/19 08/31/19 Range/Units 12:10 12:10 WBC 9.1 (4.5-11.0) X10^3/uL RBC 2.13 L (4.0-5.2) X10^6/uL Hgb 7.9 L (12.0-16.0) g/dL Hct 22.2 L (36-46) % MCV 102.8 H (80-100) fL MCH 36.9 H (26-34) PG MCHC 35.9 (30-36) % RDW 13.9 (11.6-14.8) % Plt Count 87 L (150-400) X10^3/uL Neut % (Auto) 61.1 (50-75) % Lymph % (Auto) 15.8 L (25-40) % Greene % (Auto) 19.8 H (3-14) % Eos % (Auto) 2.7 (2-4) % Baso % (Auto) 0.6 (0-2) % Neut # (Auto) 5600 (5966-0153) /uL Lymph # (Auto) 1400 (4650-7621) /uL Greene # (Auto) 1800 H (0-900) /uL Eos # (Auto) 200 (0-450) /uL Baso # (Auto) 100 (0-100) /uL Sodium 126 L (137-145) mmol/L Potassium 4.9 (3.4-5.1) mmol/L Chloride 99 (98-107) mmol/L Carbon Dioxide 20 L (22-32) mmol/L BUN 23 H (7-17) mg/dL Creatinine 0.63 (0.52-1.04) mg/dL Estimated GFR > 60.0 (>60) mL/min BUN/Creatinine Ratio 36.5 H (6-22) Glucose 136 H (70-100) mg/dL Calcium 8.8 (8.4-10.2) mg/dL Total Bilirubin 2.2 H (0.2-1.3) mg/dL AST 78 H (14-36) IU/L ALT 65 H (<35) IU/L Alkaline Phosphatase 330 H (38-126) U/L Total Protein 5.5 L (6.3-8.2) g/dL Albumin 2.9 L (3.5-5.0) g/dL Globulin 2.6 (1.7-4.1) g/dL Albumin/Globulin Ratio 1.1 (1.0-2.8) Discharge Plan Departure Patient Disposition: Home Clinical Impression: Tendinopathy of lower extremity Acute ankle pain Qualifiers: Laterality: right Qualified Code(s): M25.571 - Pain in right ankle and joints of right foot Discharge Date/Time: 08/31/19 13:15 Instructions: Tendinopathy, DI for Tendinitis Activity Restrictions/Additional Instructions: Thank you for letting us be part of your care today in the emergency department. There is no evidence of an emergent or life threatening illness at this time, but follow up with your doctor in 1-2 days is recommended nonetheless to continue to rule out serious underlying causes of your symptoms. Please call the office for an appointment. Please return to the Emergency Department for any worsening or persistent symptoms. Please take medications as directed. We are providing you with a walking boot for your ankle to provide support, I believe that you have a tendinopathy likely of your anterior tibialis tendon, the best treatment for this is breast and a gentle stretching exercises. This can take 3-6 weeks to resolve and well it improved more quickly if you minimize excessive movement of the area or overuse. It is important to follow-up for this with your primary care. Rest and time will be the jorgensen to healing. Prescriptions: No Action quetiapine 25 mg tablet 25 mg PO BEDTIME Qty: 30 RF: 3 fluticasone propion-salmeterol 500-50 mcg/dose blister with device 1 inhalation INHALATION DAILY RF: 0 levetiracetam 500 mg tablet 500 mg PO BID Qty: 60 RF: 3 omeprazole 40 mg capsule,delayed release(DR/EC) 40 mg PO DAILY Qty: 90 RF: 3 metformin 500 mg tablet 500 mg PO DAILY Qty: 30 RF: 3 spironolactone 100 mg tablet 100 mg PO TID Qty: 360 RF: 3 ferrous sulfate 325 mg (65 mg iron) tablet 325 mg PO DAILY RF: 0 omeprazole 20 mg capsule,delayed release(DR/EC) 20 mg PO DAILY RF: 0 Xifaxan 550 mg tablet 550 mg PO BID RF: 0 furosemide 20 mg tablet 40 mg PO TID RF: 0 clotrimazole-betamethasone 1-0.05 % cream 1 applictn TOP BID PRNRF: 0 nortriptyline 25 mg capsule 25 - 50 mg PO BEDTIME Qty: 180 RF: 3 Adult Multivitamin Gummies 200 mcg Tablet,Chewable 1 tab PO DAILY RF: 0 Referrals: Nahum Oakley MD [Primary Care Provider] - <Nohelia Rivas MD - Last Filed: 09/02/19 18:48> Cosign ED Attending Cosignature Attestation: I was immediately available in the department for consultation throughout this patient's visit. I agree with documentation as above. Nohelia Rivas MD
--- NOTE | 2019-08-31 11:48 | DI.US.S_ITS ---
PROCEDURE: US PERIPH VENOUS LOW EXTREM RT INDICATIONS: ACUTE ATRAUMATIC ANKLE PAIN, DVT VS TENDON TECHNIQUE: Real-time imaging, as well as color and pulse Doppler interrogation, were performed of the lower extremity deep veins from the inguinal ligament to the popliteal fossa. COMPARISON: None. FINDINGS: The common femoral, femoral and popliteal veins are normally compressible, and free of intraluminal thrombus. Color and pulse Doppler demonstrate normal phasic intraluminal flow. There is normal augmentation response to distal compression maneuver. IMPRESSION: Negative right lower extremity deep venous ultrasound for DVT Dictated by: Lm Villasenor M.D. on 08/31/2019 at 12:39 Approved by: Lm Villasenor M.D. on 08/31/2019 at 12:39
--- NOTE | 2019-08-31 11:52 | DI.RAD.S_ITS ---
PROCEDURE: XR ANKLE RT MIN 3V INDICATIONS: acute atraumatic R anterior ankle pain TECHNIQUE: 3 views of the ankle were acquired. COMPARISON: None. FINDINGS: Bones: No fractures or dislocations. Ankle mortise is normally aligned. No suspicious bony lesions. Soft tissues: No tibiotalar joint effusion. Achilles tendon appears normal. IMPRESSION: No evidence acute bony abnormality of the right ankle. If clinical suspicion and/or symptoms persist, further assessment with repeat plain films, or advanced imaging (e.g., CT, MRI, or bone scan) may be helpful for further assessment. Dictated by: Lm Villasenor M.D. on 08/31/2019 at 11:02 Approved by: Lm Villasenor M.D. on 08/31/2019 at 11:02
[2019-08-31] MEDS: OXYCODONE ER 10 MG TAB PO (12:06)
[2019-08-31 12:42] LABS: Alanine Aminotransferase 65 IU/L (<35); Albumin 2.9 g/dL (3.5-5.0); Albumin Globulin Ratio 1.1 (1.0-2.8); Alkaline Phosphatase 330 U/L (38-126); Aspartate Aminotransferase 78 IU/L (14-36); BUN Creatinine Ratio 36.5 (6-22); Bilirubin Total 2.2 mg/dL (0.2-1.3); Blood Urea Nitrogen 23 mg/dL (7-17); Calcium 8.8 mg/dL (8.4-10.2); Carbon Dioxide 20 mmol/L (22-32); Chloride 99 mmol/L (98-107); Estimated Glomerular Filt Rate > 60.0 mL/min (>60); Globulin 2.6 g/dL (1.7-4.1); Glucose 136 mg/dL (70-100); HEMOLYSIS < 15 (0-50); Potassium 4.9 mmol/L (3.4-5.1); Sodium 126 mmol/L (137-145); Total Protein 5.5 g/dL (6.3-8.2)
[2019-08-31 12:52] LABS: Add Manual Diff / Slide Review NO; Basophils Absolute Auto 100 /uL (0-100); Basophils Percent Auto 0.6 % (0-2); Eosinophils Absolute Auto 200 /uL (0-450); Eosinophils Percent Auto 2.7 % (2-4); Hemoglobin 7.9 g/dL (12.0-16.0); Lymphocytes Absolute Auto 1400 /uL (1100-4500); Lymphocytes Percent Auto 15.8 % (25-40); Mean Corpuscular HGB Conc 35.9 % (30-36); Mean Corpuscular Hemoglobin 36.9 PG (26-34); Mean Corpuscular Volume 102.8 fL (80-100); Monocytes Absolute Auto 1800 /uL (0-900); Monocytes Percent Auto 19.8 % (3-14); Neutrophils Absolute Auto 5600 /uL (1500-7000); Neutrophils Percent Auto 61.1 % (50-75); Platelet Count 87 X10^3/uL (150-400); Red Blood Cell Count 2.13 X10^6/uL (4.0-5.2); Red Cell Distribution Width 13.9 % (11.6-14.8); White Blood Cell Count 9.1 X10^3/uL (4.5-11.0)
[2019-08-31 12:57] LABS: Hematocrit 22.2 % (36-46)
[2019-08-31 13:06] VITALS: BP 95/51; PULSE 97; O2SAT 96
[2019-08-31 13:15] VITALS: BP 95/51; PULSE 97; RESP 14; TEMP 36.3; O2SAT 96
== END 2019-08-31 13:15 | disposition home or self-care (01) ==
PROVIDERS: Emergency Provider Student in an Organized Health Care Education/Training Program; PCP Internal Medicine
DX: M25.571 Pain in right ankle and joints of right foot (principal); M67.90 Unspecified disorder of synovium and tendon, unspecified site
CPT/HCPCS: 36415; 73610; 80053; 85025; 93971; 99282; 99284

== ENCOUNTER → 2019-09-19 09:01 | Outpatient (CLI) | payer OTHER, MEDICAID, SELFPAY ==
[2019-02-28 13:29] VITALS: BMI 27.5
[2019-09-19 09:20] LABS: Add Manual Diff / Slide Review NO; Basophils Absolute Auto 0 /uL (0-100); Basophils Percent Auto 0.6 % (0-2); Eosinophils Absolute Auto 100 /uL (0-450); Eosinophils Percent Auto 1.8 % (2-4); Hematocrit 24.7 % (36-46); Hemoglobin 8.8 g/dL (12.0-16.0); Lymphocytes Absolute Auto 1400 /uL (1100-4500); Lymphocytes Percent Auto 17.3 % (25-40); Mean Corpuscular HGB Conc 35.6 % (30-36); Mean Corpuscular Hemoglobin 36.1 PG (26-34); Mean Corpuscular Volume 101.4 fL (80-100); Monocytes Absolute Auto 1200 /uL (0-900); Monocytes Percent Auto 14.4 % (3-14); Neutrophils Absolute Auto 5400 /uL (1500-7000); Neutrophils Percent Auto 65.9 % (50-75); Platelet Count 89 X10^3/uL (150-400); Red Blood Cell Count 2.44 X10^6/uL (4.0-5.2); White Blood Cell Count 8.2 X10^3/uL (4.5-11.0)
[2019-09-19 09:52] LABS: INR 1.5 (0.9-1.3); Prothrombin Time 17.3 SECONDS (10.1-12.7)
[2019-09-19 10:33] LABS: Alanine Aminotransferase 64 IU/L (<35); Albumin 3.1 g/dL (3.5-5.0); Albumin Globulin Ratio 1.2 (1.0-2.8); Alkaline Phosphatase 193 U/L (38-126); Aspartate Aminotransferase 84 IU/L (14-36); BUN Creatinine Ratio 41.1 (6-22); Bilirubin Total 2.7 mg/dL (0.2-1.3); Blood Urea Nitrogen 37 mg/dL (7-17); Calcium 9.7 mg/dL (8.4-10.2); Carbon Dioxide 23 mmol/L (22-32); Chloride 94 mmol/L (98-107); Estimated Glomerular Filt Rate > 60.0 mL/min (>60); Globulin 2.6 g/dL (1.7-4.1); Glucose 155 mg/dL (70-100); HEMOLYSIS < 15 (0-50); Potassium 4.6 mmol/L (3.4-5.1); Sodium 126 mmol/L (137-145); Total Protein 5.7 g/dL (6.3-8.2)
== END ==
PROVIDERS: PCP Internal Medicine; Referring Provider Internal Medicine Gastroenterology; Visit Provider Internal Medicine Gastroenterology
DX: K70.30 Alcoholic cirrhosis of liver without ascites (principal)
CPT/HCPCS: 36415; 80053; 85025; 85610

== ENCOUNTER 2019-09-20 04:53 | Emergency (ER) | payer OTHER, MEDICAID, SELFPAY ==
[2019-02-28 13:29] VITALS: BMI 27.5
[2019-09-20] VITALS (33 sets, daily range): BP systolic 95–118; BP diastolic 50–60; PULSE 87–101; RESP 13–56; TEMP 36.9; O2SAT 93–100; BMI 25.0
--- NOTE | 2019-09-20 05:05 | ED_ITS ---
HPI - Nausea/Vomiting/Diarrhea General Chief complaint: Neuro Symptoms/Deficit Stated complaint: vomiting/disoriented Time Seen by Provider: 09/20/19 05:00 Source: family Mode of arrival: Wheelchair Limitations: altered mental status History of Present Illness HPI Narrative: 43-year-old female former smoker with history extensive alcohol abuse, cirrhosis, hepatic encephalopathy presents with her significant other in the chief complaint of a least a day or to of worsening confusion, altered mental status and vomiting. There has been no blood in her vomit and no coffee- ground emesis. She has had no change in her medications and he is certain she has been taking her lactulose as prescribed. He denies any change in her diet or medication regimen otherwise. He states the last time she drank was 14 months ago. She has been home except for an AA meeting a few days ago. Per the significant other she has had no trouble with breathing or chest pain nor any significant abdominal pain or swelling. MD complaint: vomiting Onset (ago): day(s) Description of Vomiting: food contents Description of Diarrhea: none Associated Abdominal Pain: No Associated symptoms: nausea/vomiting and altered mental status Related Data Home Medications Medication Instructions Recorded Confirmed Adult Multivitamin Gummies 1 tab PO DAILY 08/14/18 07/17/19 fluticasone 500 mcg-salmeterol 50 1 inhalation INHALATION DAILY each 05/24/19 07/17/19 mcg/dose blistr powdr for inhalation ferrous sulfate 325 mg (65 mg 325 mg PO DAILY 06/07/19 07/17/19 iron) tablet furosemide 20 mg tablet 40 mg PO TID tab 06/07/19 07/17/19 omeprazole 20 mg capsule,delayed 20 mg PO DAILY 06/07/19 07/17/19 release rifaximin 550 mg tablet 550 mg PO BID tab 06/07/19 07/17/19 clotrimazole-betamethasone 1 1 applictn TOP BID PRN gram 07/17/19 %-0.05 % topical cream Previous Rx's Medication Instructions Recorded spironolactone 100 mg tablet 100 mg PO TID #360 tab 01/24/19 quetiapine 25 mg tablet 25 mg PO BEDTIME #30 tab 05/17/19 levetiracetam 500 mg tablet 500 mg PO BID #60 tab 06/25/19 nortriptyline 25 mg capsule 25 - 50 mg PO BEDTIME #180 cap 07/25/19 metformin 500 mg tablet 500 mg PO DAILY #30 tab 08/22/19 omeprazole 40 mg capsule,delayed 40 mg PO DAILY #90 cap 08/22/19 release Allergies Allergy/AdvReac Type Severity Reaction Status Date / Time aspirin AdvReac Unknown Verified 07/17/19 10:02 Review of Systems Review of Systems ROS Unobtainable: All systems reviewed & are unremarkable except as noted in HPI and below and Unobtainable due to mental status/LOC Patient History Medical History Alcoholic hepatitis (Chronic) Alcoholism in remission (Chronic) Allergic rhinitis (Chronic) Asthma (Chronic) Bipolar disorder (Chronic) Bruises easily (Acute) Chronic migraine (Chronic) Cirrhosis (Chronic) Dizziness (Acute) Duodenal ulcer (Chronic 09/2009) Esophageal varices (Chronic) 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) Former smoker (Acute) Gastro-esophageal reflux (Chronic 12/31/10) History of UTI (Acute) Major depressive disorder, recurrent, moderate (Chronic 12/31/10) Seizure (Acute ~07/11/18) Seizure disorder (Chronic) Surgical History History of cholecystectomy (Acute) Status post endoscopy (Resolved 09/2009) Family History Other Alcoholism Asthma Social History household members: significant other Smoking Status: Former smoker alcohol intake: former Smoking Status: Former smoker alcohol intake frequency: other Substance Use Type: does not use Exam Narrative Exam Narrative: GENERAL: [43] year old patient appears stated age. Chronically ill and in significant distress. It requires 3 of us to get her out of the wheelchair and into the car. She is not responding routinely. Managing airway and secretions HEAD: Atraumatic. Normocephalic. EYES: Pupils equal round and reactive. Extraocular motions intact. No scleral icterus. No injection or drainage. ENT: Nose without bleeding, purulent drainage. Throat without erythema, tonsillar hypertrophy or exudate. Airway patent. NECK: Trachea midline. Non tender CARDIOVASCULAR: Regular rate and rhythm without murmurs, gallops, or rubs. RESPIRATORY: Clear to auscultation. Breath sounds equal bilaterally. No wheezes, rales, or rhonchi. GASTROINTESTINAL: Abdomen soft, non-tender, mild distension with minimal fluid wave EXTREMITIES: No edema or joint tenderness. BACK: Nontender without deformity or crepitance. No flank tenderness. NEURO: AOx3. SKIN: No rash or erythema of visible areas, pale Initial Vital Signs Initial Vital Signs: Vital Signs Temperature 98.4 F 09/20/19 05:05 Pulse Rate 91 H 09/20/19 05:05 Respiratory Rate 15 09/20/19 05:05 Blood Pressure 98/55 L 09/20/19 05:05 Pulse Oximetry 99 09/20/19 05:05 Procedures Intubation Time out performed: Yes sedative: Ketamine Mg Given: 70 paralytic: Rocuronium Mg Given: 70 Laryngoscope: other ET Tube Size: 7.5 ET Tube Uncuffed: No Tube Secured Depth (cm): 24 Tube Secured Location: teeth Tube Placement Confirmation: Visualized tube passing through cords, Equal breath sounds bilaterally, No breath sounds over epigastrium, Confirmation by capnometry and Chest Xray Patient Tolerated Procedure: Well Intubation Complications: none Scores GCS [place] coma scale eye opening: To sound [place] coma scale verbal response: Words [place] coma scale motor response: Localising [place] coma scale total score: 11 Course Course Course Narrative: 0630 - patient becoming increasingly obtunded. No longer responding to noxious stimuli, developing snoring respirations, moved to Trauma 2 for intubation. 0645 - call to her Hospitalist and her PCP, both strongly recommend transfer to [facility] if possible given that is location of her GI ([place]) 0725 - call to Dr. Renner (Local Delivery Truck Driver at [place]) happy to accept Orders Ordered: ED Orders 09/20/19 05:17 Urinalysis and Microscopic Stat Urine Drug Screen, Rapid Stat EKG-12 Lead Stat 09/20/19 05:30 Acetaminophen Stat Ammonia (NH3) Stat Complete Blood Count AUTO DIFF Stat Comprehensive Metabolic Panel Stat Ethanol (ETOH) Stat Hepatic (Liver) Panel Stat Lactate (Lactic Acid) Stat Partial Thromboplastin Time Stat Procalcitonin Stat Prolactin Stat Prothrombin Time INR Stat Salicylate Stat Thyroid Stimulating Hormone Stat Troponin & CK Cardiac Panel Stat 09/20/19 05:40 CT head/brain wo con Stat 07/17/20 06:13 Blood Culture Stat 09/20/19 06:47 XR chest 1V Stat Sodium Chloride (Normal Saline 0.9%) 1,000 mls @ 150 mls/hr IV CONT HAMMAD Discontinued Medications Ketamine HCl (Ketalar) 70 mg 1 mg/kg (70 mg) IV NOW ONE Stop: 09/20/19 06:48 Last Admin: 09/20/19 06:38 Dose: 70 mg Documented by: DOMINIC Lactulose (Enulose) 20 gm MA NOW ONE Stop: 09/20/19 06:19 Last Admin: 09/20/19 07:16 Dose: 20 gm Documented by: DOMINIC Rocuronium [place] (Zemuron) 70 mg IV NOW ONE Stop: 09/20/19 06:48 Last Admin: 09/20/19 06:42 Dose: 70 mg Documented by: DOMINIC Vital Signs Vital signs: Vital Signs - 8 hr 09/20/19 05:05 09/20/19 06:40 Temperature 98.4 F Pulse Rate 91 H Respiratory Rate 15 16 Blood Pressure 98/55 L Pulse Oximetry 99 100 MDM - Nausea/Vomiting/Diarrhea Lab Data Result diagrams: 09/20/19 05:30 09/20/19 05:30 Labs: Lab Results 09/20/19 09/20/19 09/20/19 Range/Units 05:30 05:30 05:30 WBC 9.4 (4.5-11.0) X10^3/uL RBC 2.39 L (4.0-5.2) X10^6/uL Hgb 8.7 L (12.0-16.0) g/dL Hct 24.2 L (36-46) % MCV 101.5 H (80-100) fL MCH 36.4 H (26-34) PG MCHC 35.9 (30-36) % RDW 13.9 (11.6-14.8) % Plt Count 96 L (150-400) X10^3/uL Neut % (Auto) 67.4 (50-75) % Lymph % (Auto) 15.1 L (25-40) % [place] % (Auto) 14.8 H (3-14) % Eos % (Auto) 0.8 L (2-4) % Baso % (Auto) 1.9 (0-2) % Neut # (Auto) 6300 (9288-6735) /uL Lymph # (Auto) 1400 (6300-0007) /uL [place] # (Auto) 1400 H (0-900) /uL Eos # (Auto) 100 (0-450) /uL Baso # (Auto) 200 H (0-100) /uL PT (10.1-12.7) SECONDS INR (0.9-1.3) APTT (26.4-36.2) SECONDS Sodium (137-145) mmol/L Potassium (3.4-5.1) mmol/L Chloride (98-107) mmol/L Carbon Dioxide (22-32) mmol/L BUN (7-17) mg/dL Creatinine (0.52-1.04) mg/dL Estimated GFR (>60) mL/min BUN/Creatinine Ratio (6-22) Glucose (70-100) mg/dL Lactate (0.7-2.1) mmol/L Calcium (8.4-10.2) mg/dL Total Bilirubin 2.8 H (0.2-1.3) mg/dL Conjugated Bilirubin 0.0 (0.0-0.3) md/dL Unconjugated Bilirubin 2.0 H (0.0-1.1) mg/dL AST 85 H (14-36) IU/L ALT 67 H (<35) IU/L Alkaline Phosphatase 209 H (38-126) U/L Ammonia (9-30) umol/L Total Creatine Kinase 102 (30-135) U/L CK-MB (CK-2) 5.34 H (<2.37) ng/mL CK-MB (CK-2) Rel Index 5.2 H (1.5-5.0) % Troponin I < 0.012 (0.01-0.034) ng/mL Total Protein 5.9 L (6.3-8.2) g/dL Albumin 3.2 L (3.5-5.0) g/dL Globulin 2.7 (1.7-4.1) g/dL Albumin/Globulin Ratio 1.2 (1.0-2.8) Procalcitonin 0.69 H (<0.5) ng/mL TSH (0.47-4.68) uIU/mL Prolactin (3.0-18.6) ng/mL Salicylates (<20) mg/dL Acetaminophen (10-30) ug/mL Ethyl Alcohol ( - 10) mg/dL 09/20/19 09/20/19 09/20/19 Range/Units 05:30 05:30 05:30 WBC (4.5-11.0) X10^3/uL RBC (4.0-5.2) X10^6/uL Hgb (12.0-16.0) g/dL Hct (36-46) % MCV (80-100) fL MCH (26-34) PG MCHC (30-36) % RDW (11.6-14.8) % Plt Count (150-400) X10^3/uL Neut % (Auto) (50-75) % Lymph % (Auto) (25-40) % [place] % (Auto) (3-14) % Eos % (Auto) (2-4) % Baso % (Auto) (0-2) % Neut # (Auto) (6944-3580) /uL Lymph # (Auto) (8196-9050) /uL [place] # (Auto) (0-900) /uL Eos # (Auto) (0-450) /uL Baso # (Auto) (0-100) /uL PT 16.3 H (10.1-12.7) SECONDS INR 1.4 H (0.9-1.3) APTT 41 H D (26.4-36.2) SECONDS Sodium 127 L (137-145) mmol/L Potassium 5.0 (3.4-5.1) mmol/L Chloride 96 L (98-107) mmol/L Carbon Dioxide 20 L (22-32) mmol/L BUN 37 H (7-17) mg/dL Creatinine 0.87 (0.52-1.04) mg/dL Estimated GFR > 60.0 (>60) mL/min BUN/Creatinine Ratio 42.5 H (6-22) Glucose 132 H (70-100) mg/dL Lactate 2.3 H (0.7-2.1) mmol/L Calcium 10.4 H (8.4-10.2) mg/dL Total Bilirubin 2.8 H (0.2-1.3) mg/dL Conjugated Bilirubin (0.0-0.3) md/dL Unconjugated Bilirubin (0.0-1.1) mg/dL AST 85 H (14-36) IU/L ALT 68 H (<35) IU/L Alkaline Phosphatase 208 H (38-126) U/L Ammonia (9-30) umol/L Total Creatine Kinase (30-135) U/L CK-MB (CK-2) (<2.37) ng/mL CK-MB (CK-2) Rel Index (1.5-5.0) % Troponin I (0.01-0.034) ng/mL Total Protein 5.9 L (6.3-8.2) g/dL Albumin 3.2 L (3.5-5.0) g/dL Globulin 2.7 (1.7-4.1) g/dL Albumin/Globulin Ratio 1.2 (1.0-2.8) Procalcitonin (<0.5) ng/mL TSH (0.47-4.68) uIU/mL Prolactin 99.9 H (3.0-18.6) ng/mL Salicylates 1.1 (<20) mg/dL Acetaminophen < 10 L (10-30) ug/mL Ethyl Alcohol < 10 ( - 10) mg/dL 09/20/19 09/20/19 Range/Units 05:30 05:30 WBC (4.5-11.0) X10^3/uL RBC (4.0-5.2) X10^6/uL Hgb (12.0-16.0) g/dL Hct (36-46) % MCV (80-100) fL MCH (26-34) PG MCHC (30-36) % RDW (11.6-14.8) % Plt Count (150-400) X10^3/uL Neut % (Auto) (50-75) % Lymph % (Auto) (25-40) % [place] % (Auto) (3-14) % Eos % (Auto) (2-4) % Baso % (Auto) (0-2) % Neut # (Auto) (5729-8267) /uL Lymph # (Auto) (7655-1595) /uL [place] # (Auto) (0-900) /uL Eos # (Auto) (0-450) /uL Baso # (Auto) (0-100) /uL PT (10.1-12.7) SECONDS INR (0.9-1.3) APTT (26.4-36.2) SECONDS Sodium (137-145) mmol/L Potassium (3.4-5.1) mmol/L Chloride (98-107) mmol/L Carbon Dioxide (22-32) mmol/L BUN (7-17) mg/dL Creatinine (0.52-1.04) mg/dL Estimated GFR (>60) mL/min BUN/Creatinine Ratio (6-22) Glucose (70-100) mg/dL Lactate (0.7-2.1) mmol/L Calcium (8.4-10.2) mg/dL Total Bilirubin (0.2-1.3) mg/dL Conjugated Bilirubin (0.0-0.3) md/dL Unconjugated Bilirubin (0.0-1.1) mg/dL AST (14-36) IU/L ALT (<35) IU/L Alkaline Phosphatase (38-126) U/L Ammonia 404 H (9-30) umol/L Total Creatine Kinase (30-135) U/L CK-MB (CK-2) (<2.37) ng/mL CK-MB (CK-2) Rel Index (1.5-5.0) % Troponin I (0.01-0.034) ng/mL Total Protein (6.3-8.2) g/dL Albumin (3.5-5.0) g/dL Globulin (1.7-4.1) g/dL Albumin/Globulin Ratio (1.0-2.8) Procalcitonin (<0.5) ng/mL TSH 6.52 H (0.47-4.68) uIU/mL Prolactin (3.0-18.6) ng/mL Salicylates (<20) mg/dL Acetaminophen (10-30) ug/mL Ethyl Alcohol ( - 10) mg/dL Critical Care Time Critical Care Time Critical Care Time: Yes Total Critical Care Time: 30 Attestation: The high probability of a clinically significant, sudden or life threatening deterioration of the [CV] system(s) required my full and direct attention, intervention and personal management. The aggregate critical care time was [30] minutes. This time is in addition to time spent performing reported procedures but includes the following: [x] Data Review and interpretation [x] Patient assessment and monitoring of vital signs [x] Documentation [x] Medication orders and management Discharge Plan Departure [facility] Clinical Impression: Acute hepatic encephalopathy Respiratory failure Qualifiers: Chronicity: acute Respiratory failure complication: hypoxia Qualified Code(s): J96.01 - Acute respiratory failure with hypoxia Prescriptions: No Action quetiapine 25 mg tablet 25 mg PO BEDTIME Qty: 30 RF: 3 fluticasone propion-salmeterol 500-50 mcg/dose blister with device 1 inhalation INHALATION DAILY RF: 0 levetiracetam 500 mg tablet 500 mg PO BID Qty: 60 RF: 3 omeprazole 40 mg capsule,delayed release(DR/EC) 40 mg PO DAILY Qty: 90 RF: 3 metformin 500 mg tablet 500 mg PO DAILY Qty: 30 RF: 3 spironolactone 100 mg tablet 100 mg PO TID Qty: 360 RF: 3 ferrous sulfate 325 mg (65 mg iron) tablet 325 mg PO DAILY RF: 0 omeprazole 20 mg capsule,delayed release(DR/EC) 20 mg PO DAILY RF: 0 Xifaxan 550 mg tablet 550 mg PO BID RF: 0 furosemide 20 mg tablet 40 mg PO TID RF: 0 clotrimazole-betamethasone 1-0.05 % cream 1 applictn TOP BID PRNRF: 0 nortriptyline 25 mg capsule 25 - 50 mg PO BEDTIME Qty: 180 RF: 3 Adult Multivitamin Gummies 200 mcg Tablet,Chewable 1 tab PO DAILY RF: 0 Referrals: Nahum Oakley MD [Primary Care Provider] -
--- NOTE | 2019-09-20 05:40 | DI.CT.S_ITS ---
PROCEDURE: CT HEAD/BRAIN WO CON INDICATIONS: Acute altered mental status TECHNIQUE: Noncontrast 4.5 mm thick angled axial sections acquired from the foramen magnum to the vertex, with coronal and sagittal reformats. For radiation dose reduction, the following was used: automated exposure control, adjustment of mA and/or kV according to patient size. COMPARISON: [facility], CT, CT HEAD/BRAIN WO CON, 06/13/2019, 12:12. [facility], CT, CT HEAD/BRAIN WO CON, 07/13/2018, 18:37. FINDINGS: Image quality: Excellent. CSF spaces: Basal cisterns are patent. No extra-axial fluid collections. The ventricles are symmetric in size and shape. Brain: No intracranial bleeds or masses. There is minimal cerebral volume loss for age, with resultant ventricular and sulcal prominence. There are minimal periventricular and deep white matter chronic small vessel ischemic changes. Skull and face: Calvarium and visualized facial bones appear intact, without suspicious lesions. Sinuses: Visualized sinuses and mastoids are clear. IMPRESSION: No acute intracranial disease process. Dictated by: Salina Moncada MD, PhD on 09/20/2019 at 7:10 Approved by: Salina Moncada MD, PhD on 09/20/2019 at 7:13
[2019-09-20 05:57] LABS: INR 1.4 (0.9-1.3); Prothrombin Time 16.3 SECONDS (10.1-12.7)
[2019-09-20 05:59] LABS: PTT Partial Thromboplastin Tim 41 SECONDS (26.4-36.2)
[2019-09-20 06:00] LABS: Ammonia (NH3) 404 umol/L (9-30); Lactate (Lactic Acid) 2.3 mmol/L (0.7-2.1)
--- NOTE | 2019-09-20 06:05 | PC.NURSE ---
PT arrives with boyfriend who states pt has altered mental status and vomiting without blood or coffee ground appearance. Pt has hx of alcohol abuse, cirrhosis and hepatic encephalopathy. Pt boyfriend denies pt has had CP, SOB, Cough or fevers. Boyfriend states pt has been taking her lactulose and has been sober for 14 months. Pt appears sleepy and loudly states ok, ok when asked to do task. Boyfriend at bedside.
[2019-09-20 06:20] LABS: Acetaminophen < 10 ug/mL (10-30); Alanine Aminotransferase 68 IU/L (<35); Albumin 3.2 g/dL (3.5-5.0); Albumin Globulin Ratio 1.2 (1.0-2.8); Alkaline Phosphatase 208 U/L (38-126); Aspartate Aminotransferase 85 IU/L (14-36); BUN Creatinine Ratio 42.5 (6-22); Bilirubin Total 2.8 mg/dL (0.2-1.3); Blood Urea Nitrogen 37 mg/dL (7-17); Calcium 10.4 mg/dL (8.4-10.2); Carbon Dioxide 20 mmol/L (22-32); Chloride 96 mmol/L (98-107); Estimated Glomerular Filt Rate > 60.0 mL/min (>60); Ethanol (ETOH) < 10 mg/dL; Globulin 2.7 g/dL (1.7-4.1); Glucose 132 mg/dL (70-100); HEMOLYSIS < 15 (0-50); Salicylate 1.1 mg/dL (<20); Sodium 127 mmol/L (137-145); Total Protein 5.9 g/dL (6.3-8.2)
[2019-09-20 06:21] LABS: Alanine Aminotransferase 67 IU/L (<35); Albumin 3.2 g/dL (3.5-5.0); Albumin Globulin Ratio 1.2 (1.0-2.8); Alkaline Phosphatase 209 U/L (38-126); Aspartate Aminotransferase 85 IU/L (14-36); Bilirubin Total 2.8 mg/dL (0.2-1.3); Creatine Kinase 102 U/L (30-135); Globulin 2.7 g/dL (1.7-4.1); HEMOLYSIS < 15 (0-50); Total Protein 5.9 g/dL (6.3-8.2)
[2019-09-20 06:26] LABS: Add Manual Diff / Slide Review NO; Basophils Absolute Auto 200 /uL (0-100); Basophils Percent Auto 1.9 % (0-2); Eosinophils Absolute Auto 100 /uL (0-450); Eosinophils Percent Auto 0.8 % (2-4); Hematocrit 24.2 % (36-46); Hemoglobin 8.7 g/dL (12.0-16.0); Lymphocytes Absolute Auto 1400 /uL (1100-4500); Lymphocytes Percent Auto 15.1 % (25-40); Mean Corpuscular HGB Conc 35.9 % (30-36); Mean Corpuscular Hemoglobin 36.4 PG (26-34); Mean Corpuscular Volume 101.5 fL (80-100); Monocytes Absolute Auto 1400 /uL (0-900); Monocytes Percent Auto 14.8 % (3-14); Neutrophils Absolute Auto 6300 /uL (1500-7000); Neutrophils Percent Auto 67.4 % (50-75); Platelet Count 96 X10^3/uL (150-400); Red Blood Cell Count 2.39 X10^6/uL (4.0-5.2); Red Cell Distribution Width 13.9 % (11.6-14.8); White Blood Cell Count 9.4 X10^3/uL (4.5-11.0)
[2019-09-20 06:29] LABS: Thyroid Stimulating Hormone 6.52 uIU/mL (0.47-4.68)
[2019-09-20 06:31] LABS: Troponin I < 0.012 ng/mL (0.01-0.034)
[2019-09-20 06:34] LABS: Procalcitonin 0.69 ng/mL (<0.5)
[2019-09-20 06:36] LABS: Prolactin 99.9 ng/mL (3.0-18.6)
[2019-09-20 06:37] LABS: CKMB % Relative Index 5.2 % (1.5-5.0); Creatine Kinase MB 5.34 ng/mL (<2.37)
[2019-09-20] MEDS: KETAMINE 500 MG/5 ML INJ 70 MG IV (06:38)
[2019-09-20] MEDS: ROCURONIUM 50 MG/5 ML INJ 70 MG IV (06:42)
--- NOTE | 2019-09-20 06:47 | DI.RAD.S_ITS ---
PROCEDURE: XR CHEST 1V INDICATIONS: s/p intubation TECHNIQUE: One view of the chest was acquired. COMPARISON: [facility], CR, XR CHEST 1V, 04/06/2019, 9:58. FINDINGS: Surgical changes and devices: ET tube and NG tube in satisfactory position. Tip of ET tube approximately 2.7 cm above the naida. Lungs and pleura: Patchy atelectasis, left lung base. No pleural effusions or pneumothorax. Mediastinum: Mediastinal contours appear normal. Heart size is normal. Bones and chest wall: No suspicious bony lesions. Overlying soft tissues appear unremarkable. IMPRESSION: 1. Lines and tubes in satisfactory position. 2. Patchy atelectasis, left lung base. Dictated by: Lm Villasenor M.D. on 09/20/2019 at 8:47 Approved by: Lm Villasenor M.D. on 09/20/2019 at 8:48
[2019-09-20] MEDS: LACTULOSE 20 GM/30 ML SOLUTION PR (07:16)
[2019-09-20 07:49] LABS: Reflexed Lactate in 2 Hours Y
[2019-09-20 08:02] LABS: RBC Urine None Seen (0-5/HPF)
[2019-09-20 08:04] LABS: Appearance Urine UA CLEAR; Bilirubin Urine UA NEGATIVE (NEGATIVE); Color Urine UA YELLOW; Glucose Urine UA NEGATIVE (Negative); Ketones Urine UA NEGATIVE (NEGATIVE); Leukocyte Esterase Urine UA NEGATIVE (NEGATIVE); Nitrite Urine UA NEGATIVE (Negative); Occult Blood Urine UA NEGATIVE (Negative); Protein Urine UA NEGATIVE (Negative); Urobilinogen Urine UA 0.2 E.U./dL (0.2)
[2019-09-20 08:05] LABS: pH Urine UA 6.5 (4.5-8.0)
[2019-09-20 08:10] LABS: UR Morphine/Opiate cutoff 300 Negative (Negative); Ur Creatinine Normal (Normal); Ur Specific Gravity Normal (Normal); Urine Amphetamines Negative (Negative); Urine Barbiturates Negative (Negative); Urine Cocaine Negative (Negative); Urine MDMA Negative (Negative); Urine Methamphetamines Negative (Negative); Urine Phencyclidine Negative (Negative); Urine Tetrahydrocannabinol Negative (Negative); Urine pH Normal (Normal)
[2019-09-20 08:11] LABS: Urine Benzodiazepines Negative (Negative); Urine Methadone Negative (Negative); Urine Oxycodone Negative (Negative); Urine Tricyclic Antidepressant Positive (Negative)
[2019-09-20 08:13] LABS: Bacteria Urine Many (>30); Culture Indicated Urine Specimen Cultured; WBC Urine 1-5/HPF (0-5/HPF)
[2019-09-20 08:24] LABS: PCO2 ABG 41.9 mmHg (35-45); PO2 ABG 71 mmHg (80-100); pH ABG 7.33 (7.35-7.45)
[2019-09-20 08:25] LABS: Fractionated Inspired Oxygen 40; HCO3 ABG 22 mmol/L (22-26); Oxygen Saturation ABG 93 % (95-100); TCO2 ABG 23 mmol/L (21-31)
[2019-09-20 08:32] LABS: COVID19 -Nasal RAPID Negative (Negative)
[2019-09-21 01:28] LABS: Enterococcus species Not Detected (Not Detect); Listeria monocytogenes Not Detected (Not Detect); Staphylococcus species Not Detected (Not Detect)
[2019-09-21 01:29] LABS: Acinetobacter baumannii Not Detected (Not Detect); Enterobacteriaceae species Not Detected (Not Detect); Streptococcus agalactiae (Gr B Not Detected (Not Detect); Streptococcus pneumonia Not Detected (Not Detect); Streptococcus pyogenes (Gr A) Not Detected (Not Detect); Streptococcus species Detected (Not Detect)
[2019-09-21 01:30] LABS: Candida albicans Not Detected (Not Detect); Candida glabrata Not Detected (Not Detect); Candida krusei Not Detected (Not Detect); Candida parapsilosis Not Detected (Not Detect); Candida tropicalis Not Detected (Not Detect); Enterobacter cloacae complex Not Detected (Not Detect); Haemophilus influenzae Not Detected (Not Detect); Neisseria meningitidis Not Detected (Not Detect); Proteus species Not Detected (Not Detect); Pseudomonas aeruginosa Not Detected (Not Detect); Serratia marcescens Not Detected (Not Detect)
== END 2019-09-20 09:35 | disposition short-term general hospital (02) ==
PROVIDERS: Emergency Provider Emergency Medicine; PCP Internal Medicine
DX: K72.00 Acute and subacute hepatic failure without coma (principal); J96.01 Acute respiratory failure with hypoxia
CPT/HCPCS: 31500; 36415; 36600; 51701; 70450; 71045; 80053; 80076; 80305; 80320; 80329; 81001; 82140; 82550; 82553; 82805; 83605; 84145; 84146; 84443; 84484; 85025; 85610; 85730; 87040; 87077; 87086; 87150; 87186; 87205; 87635; 93005; 93010; 94002; 94770; 99285; 99291; 99292; G0480

== ENCOUNTER 2019-10-14 07:43 | Emergency (ER) | payer OTHER, MEDICAID, SELFPAY ==
[2019-02-28 13:29] VITALS: BMI 27.5
[2019-10-14 07:52] VITALS: BP 103/57; PULSE 106; RESP 20; TEMP 36.8; O2SAT 100; BMI 26.3
--- NOTE | 2019-10-14 08:30 | ED_ITS ---
HPI - Nausea/Vomiting/Diarrhea General Chief complaint: Eye Problems Stated complaint: LEFT EYE SWELLING,VOMITING Time Seen by Provider: 10/14/19 08:17 Source: patient and family Mode of arrival: Ambulatory Limitations: no limitations History of Present Illness HPI Narrative: Patient here with boyfriend. Complaints of nausea vomiting off and on since . Dry heaving over the weekend. Also has left eye sub conjunctival hematoma from dry heaving. 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 Patient has been sober for 15 months. Patient is functional with ammonia levels in the 200s however last month was admitted due to levels in the 400s. Denies any alcohol use. No recent cough cold congestion fever chills. No cold exposure. Patient does have baseline coagulopathy change s due to liver damage. Denies any bleeding anywhere else. No vision changes. No eye pain. Patient and boyfriend noticed left eye injury this morning. It was not injured last night or evident last night Related Data Home Medications Medication Instructions Recorded Confirmed Adult Multivitamin Gummies 1 tab PO DAILY 08/14/18 07/17/19 fluticasone 500 mcg-salmeterol 50 1 inhalation INHALATION DAILY each 05/24/19 07/17/19 mcg/dose blistr powdr for inhalation ferrous sulfate 325 mg (65 mg 325 mg PO DAILY 06/07/19 07/17/19 iron) tablet furosemide 20 mg tablet 40 mg PO TID tab 06/07/19 07/17/19 omeprazole 20 mg capsule,delayed 20 mg PO DAILY 06/07/19 07/17/19 release rifaximin 550 mg tablet 550 mg PO BID tab 06/07/19 07/17/19 clotrimazole-betamethasone 1 1 applictn TOP BID PRN gram 07/17/19 %-0.05 % topical cream Previous Rx's Medication Instructions Recorded spironolactone 100 mg tablet 100 mg PO TID #360 tab 01/24/19 quetiapine 25 mg tablet 25 mg PO BEDTIME #30 tab 05/17/19 levetiracetam 500 mg tablet 500 mg PO BID #60 tab 06/25/19 nortriptyline 25 mg capsule 25 - 50 mg PO BEDTIME #180 cap 07/25/19 metformin 500 mg tablet 500 mg PO DAILY #30 tab 08/22/19 omeprazole 40 mg capsule,delayed 40 mg PO DAILY #90 cap 08/22/19 release ondansetron 4 mg PO Q8H PRN #10 tab 10/14/19 Allergies Allergy/AdvReac Type Severity Reaction Status Date / Time aspirin AdvReac Unknown Verified 10/14/19 07:52 Review of Systems Review of Systems Narrative: GENERAL: Denies chills, fatigue, malaise, fever, sweats. HEENT: Denies sinus pain, ear pain, sore throat, difficulty swallowing, dizziness. RESPIRATORY: Denies dyspnea, cough, wheezing, hemoptysis, sputum. CARDIOVASCULAR: Denies chest pain, palpitations, orthopnea, edema, GASTROINTESTINAL: Complains nausea, vomiting, denies any abdominal pain diarrhea or constipation : Denies dysuria, frequency, incontinence, hematuria, urinary retention. MUSCULOSKELETAL: denies weakness, joint pain, or bony pain SKIN: Denies rash, skin lesions, or other NEUROLOGIC: Denies weakness, headache, numbness, change in speech, confusion, seizures, incoordination. PSYCHIATRIC: No concerning psychosocial issues. ROS Unobtainable: All systems reviewed & are unremarkable except as noted in HPI and below Patient History Medical History Alcoholic hepatitis (Chronic) Alcoholism in remission (Chronic) Allergic rhinitis (Chronic) Asthma (Chronic) Bipolar disorder (Chronic) Bruises easily (Acute) Chronic migraine (Chronic) Cirrhosis (Chronic) Dizziness (Acute) Duodenal ulcer (Chronic 09/2009) Esophageal varices (Chronic) 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) Former smoker (Acute) Gastro-esophageal reflux (Chronic 12/31/10) History of UTI (Acute) Major depressive disorder, recurrent, moderate (Chronic 12/31/10) Seizure (Acute ~07/11/18) Seizure disorder (Chronic) Surgical History History of cholecystectomy (Acute) Status post endoscopy (Resolved 09/2009) Family History Other Alcoholism Asthma Social History household members: significant other Smoking Status: Former smoker alcohol intake: former Smoking Status: Former smoker alcohol intake frequency: other Substance Use Type: does not use Exam Narrative Exam Narrative: GENERAL: patient appears stated age. Well-nourished, well- developed patient, in no distress, not toxic HEAD: Atraumatic. Normocephalic. EYES: Pupils equal round and reactive. Extraocular motions intact. No scleral icterus. No injection or drainage. There is left thigh lateral subconjunctival hematoma with lower eyelid depended ecchymosis/edema. No pain with eye movement. Slightly icterus ENT: Nose without bleeding, purulent drainage. Throat without erythema, tonsillar hypertrophy or exudate. Airway patent. NECK: Trachea midline. Non tender CARDIOVASCULAR: Regular rate and rhythm without murmurs, gallops, or rubs. RESPIRATORY: Clear to auscultation. Breath sounds equal bilaterally. No wheezes, rales, or rhonchi. GASTROINTESTINAL: Abdomen soft, non-tender, mild distension which patient states is baseline. No peritoneal signs. EXTREMITIES: No edema or joint tenderness. BACK: Nontender without deformity or crepitance. No flank tenderness. NEURO: AOx3. SKIN: No rash or erythema of visible areas, no jaundice PSYCH: Not anxious, is cooperative Initial Vital Signs Initial Vital Signs: Vital Signs Temperature 98.3 F 10/14/19 07:52 Pulse Rate 106 H 10/14/19 07:52 Respiratory Rate 20 10/14/19 07:52 Blood Pressure 103/57 L 10/14/19 07:52 Pulse Oximetry 100 10/14/19 07:52 Course Orders Ordered: ED Orders 10/14/19 09:30 Ammonia (NH3) Stat Complete Blood Count AUTO DIFF Stat Comprehensive Metabolic Panel Stat Partial Thromboplastin Time Stat Prothrombin Time INR Stat Discontinued Medications Ondansetron HCl (Zofran) 4 mg IV NOW ONE Stop: 10/14/19 08:29 Last Admin: 10/14/19 09:43 Dose: 4 mg Documented by: WOLF Reevaluation(s) Reevaluation #1: Patient feels much better after Zofran. Does not require any IV fluids. She desires discharge home. Time: 10:26 Vital Signs Vital signs: Vital Signs - 8 hr 10/14/19 10:30 Pulse Rate 87 Respiratory Rate 16 Blood Pressure 103/57 L Pulse Oximetry 99 MDM - Nausea/Vomiting/Diarrhea Differential Diagnosis Differential diagnosis: Likely other (Subconjunctival hemorrhage/gastritis) Lab Data Result diagrams: 10/14/19 09:30 10/14/19 09:30 Labs: Lab Results 10/14/19 10/14/19 10/14/19 Range/Units 09:30 09:30 09:30 WBC 11.6 H (4.5-11.0) X10^3/uL RBC 2.61 L (4.0-5.2) X10^6/uL Hgb 9.0 L (12.0-16.0) g/dL Hct 25.7 L (36-46) % MCV 98.1 (80-100) fL MCH 34.5 H (26-34) PG MCHC 35.2 (30-36) % RDW 16.0 H (11.6-14.8) % Plt Count 123 L (150-400) X10^3/uL Neut % (Auto) 68.1 (50-75) % Lymph % (Auto) 12.3 L (25-40) % Craig % (Auto) 16.9 H (3-14) % Eos % (Auto) 2.3 (2-4) % Baso % (Auto) 0.4 (0-2) % Neut # (Auto) 7900 H (6079-0631) /uL Lymph # (Auto) 1400 (3126-1143) /uL Craig # (Auto) 2000 H (0-900) /uL Eos # (Auto) 300 (0-450) /uL Baso # (Auto) 100 (0-100) /uL PT 16.2 H (10.1-12.7) SECONDS INR 1.4 H (0.9-1.3) APTT 38 H D (26.4-36.2) SECONDS Sodium 127 L (137-145) mmol/L Potassium 4.5 (3.4-5.1) mmol/L Chloride 100 (98-107) mmol/L Carbon Dioxide 20 L (22-32) mmol/L BUN 20 H (7-17) mg/dL Creatinine 0.61 (0.52-1.04) mg/dL Estimated GFR > 60.0 (>60) mL/min BUN/Creatinine Ratio 32.8 H (6-22) Glucose 156 H (70-100) mg/dL Calcium 8.1 L (8.4-10.2) mg/dL Total Bilirubin 3.0 H (0.2-1.3) mg/dL AST 82 H (14-36) IU/L ALT 61 H (<35) IU/L Alkaline Phosphatase 297 H (38-126) U/L Ammonia (9-30) umol/L Total Protein 5.6 L (6.3-8.2) g/dL Albumin 2.9 L (3.5-5.0) g/dL Globulin 2.7 (1.7-4.1) g/dL Albumin/Globulin Ratio 1.1 (1.0-2.8) 10/14/19 Range/Units 09:30 WBC (4.5-11.0) X10^3/uL RBC (4.0-5.2) X10^6/uL Hgb (12.0-16.0) g/dL Hct (36-46) % MCV (80-100) fL MCH (26-34) PG MCHC (30-36) % RDW (11.6-14.8) % Plt Count (150-400) X10^3/uL Neut % (Auto) (50-75) % Lymph % (Auto) (25-40) % Craig % (Auto) (3-14) % Eos % (Auto) (2-4) % Baso % (Auto) (0-2) % Neut # (Auto) (1147-3723) /uL Lymph # (Auto) (4759-1997) /uL Craig # (Auto) (0-900) /uL Eos # (Auto) (0-450) /uL Baso # (Auto) (0-100) /uL PT (10.1-12.7) SECONDS INR (0.9-1.3) APTT (26.4-36.2) SECONDS Sodium (137-145) mmol/L Potassium (3.4-5.1) mmol/L Chloride (98-107) mmol/L Carbon Dioxide (22-32) mmol/L BUN (7-17) mg/dL Creatinine (0.52-1.04) mg/dL Estimated GFR (>60) mL/min BUN/Creatinine Ratio (6-22) Glucose (70-100) mg/dL Calcium (8.4-10.2) mg/dL Total Bilirubin (0.2-1.3) mg/dL AST (14-36) IU/L ALT (<35) IU/L Alkaline Phosphatase (38-126) U/L Ammonia 27 (9-30) umol/L Total Protein (6.3-8.2) g/dL Albumin (3.5-5.0) g/dL Globulin (1.7-4.1) g/dL Albumin/Globulin Ratio (1.0-2.8) Urine Dip Bedside Urine Glucose Negative Bedside Urine Bilirubin - Negative Bedside Urine Ketone - Negative Urine Specific [place] 1.015 Bedside Urine Occult Blood - Negative Bedside Urine pH 6.0 Bedside Urine Protein - Negative Bedside Urine Urobilinogen - Negative Bedside Urine Nitrite - Negative Bedside Urine Leukocytes - Negative Esterase MDM Narrative Medical decision making narrative: Appropriate for discharge home. Baseline with liver enzymes and coagulation studies. Not elevated ammonia. No altered mental status. Patient is not want to be admitted. Patient feels much better after Zofran. Baseline CBC and CMP as well Discharge Plan Departure Patient Disposition: Home Clinical Impression: Subconjunctival hemorrhage Qualifiers: Laterality: left Qualified Code(s): H11.32 - Conjunctival hemorrhage, left eye Gastritis Qualifiers: Gastritis type: unspecified gastritis Chronicity: unspecified Gastritis bleeding: without bleeding Qualified Code(s): K29.70 - Gastritis, unspecified, without bleeding Discharge Date/Time: 10/14/19 10:15 Instructions: DI for Subconjunctival Hemorrhage, Nausea and Vomiting-Adult Activity Restrictions/Additional Instructions: Return if worse or if any questions concerns. Keep well hydrated. See family doctor this week for recheck. Prescriptions: New ondansetron 4 mg tablet,disintegrating 4 mg PO Q8H PRN (Reason: nausea and vomiting) Qty: 10 RF: 0 No Action quetiapine 25 mg tablet 25 mg PO BEDTIME Qty: 30 RF: 3 fluticasone propion-salmeterol 500-50 mcg/dose blister with device 1 inhalation INHALATION DAILY RF: 0 levetiracetam 500 mg tablet 500 mg PO BID Qty: 60 RF: 3 omeprazole 40 mg capsule,delayed release(DR/EC) 40 mg PO DAILY Qty: 90 RF: 3 metformin 500 mg tablet 500 mg PO DAILY Qty: 30 RF: 3 spironolactone 100 mg tablet 100 mg PO TID Qty: 360 RF: 3 ferrous sulfate 325 mg (65 mg iron) tablet 325 mg PO DAILY RF: 0 omeprazole 20 mg capsule,delayed release(DR/EC) 20 mg PO DAILY RF: 0 Xifaxan 550 mg tablet 550 mg PO BID RF: 0 furosemide 20 mg tablet 40 mg PO TID RF: 0 clotrimazole-betamethasone 1-0.05 % cream 1 applictn TOP BID PRNRF: 0 nortriptyline 25 mg capsule 25 - 50 mg PO BEDTIME Qty: 180 RF: 3 Adult Multivitamin Gummies 200 mcg Tablet,Chewable 1 tab PO DAILY RF: 0 Referrals: Nahum Oakley MD [Primary Care Provider] -
[2019-10-14] MEDS: ONDANSETRON 4 MG/2 ML INJ IV (09:43)
--- NOTE | 2019-10-14 09:45 | PC.NURSE ---
Pt has ecchymosis around left eye
[2019-10-14 09:46] LABS: Add Manual Diff / Slide Review NO; Basophils Absolute Auto 100 /uL (0-100); Basophils Percent Auto 0.4 % (0-2); Eosinophils Absolute Auto 300 /uL (0-450); Eosinophils Percent Auto 2.3 % (2-4); Hematocrit 25.7 % (36-46); Lymphocytes Absolute Auto 1400 /uL (1100-4500); Lymphocytes Percent Auto 12.3 % (25-40); Mean Corpuscular HGB Conc 35.2 % (30-36); Mean Corpuscular Hemoglobin 34.5 PG (26-34); Mean Corpuscular Volume 98.1 fL (80-100); Monocytes Absolute Auto 2000 /uL (0-900); Monocytes Percent Auto 16.9 % (3-14); Neutrophils Absolute Auto 7900 /uL (1500-7000); Neutrophils Percent Auto 68.1 % (50-75); Platelet Count 123 X10^3/uL (150-400); Red Blood Cell Count 2.61 X10^6/uL (4.0-5.2); White Blood Cell Count 11.6 X10^3/uL (4.5-11.0)
[2019-10-14 09:50] LABS: INR 1.4 (0.9-1.3); Prothrombin Time 16.2 SECONDS (10.1-12.7)
[2019-10-14 09:54] LABS: Ammonia (NH3) 27 umol/L (9-30); PTT Partial Thromboplastin Tim 38 SECONDS (26.4-36.2)
[2019-10-14 09:55] LABS: Alanine Aminotransferase 61 IU/L (<35); Albumin 2.9 g/dL (3.5-5.0); Albumin Globulin Ratio 1.1 (1.0-2.8); Alkaline Phosphatase 297 U/L (38-126); Aspartate Aminotransferase 82 IU/L (14-36); BUN Creatinine Ratio 32.8 (6-22); Blood Urea Nitrogen 20 mg/dL (7-17); Calcium 8.1 mg/dL (8.4-10.2); Carbon Dioxide 20 mmol/L (22-32); Chloride 100 mmol/L (98-107); Estimated Glomerular Filt Rate > 60.0 mL/min (>60); Globulin 2.7 g/dL (1.7-4.1); Glucose 156 mg/dL (70-100); HEMOLYSIS < 15 (0-50); Potassium 4.5 mmol/L (3.4-5.1); Sodium 127 mmol/L (137-145); Total Protein 5.6 g/dL (6.3-8.2)
[2019-10-14 10:30] VITALS: BP 103/57; PULSE 87; RESP 16; O2SAT 99
== END 2019-10-14 10:15 | disposition home or self-care (01) ==
PROVIDERS: Emergency Provider Emergency Medicine; PCP Internal Medicine
DX: H11.32 Conjunctival hemorrhage, left eye (principal); K29.70 Gastritis, unspecified, without bleeding; R11.2 Nausea with vomiting, unspecified
CPT/HCPCS: 36415; 80053; 81003; 82140; 85025; 85610; 85730; 96374; 99284; J2405

== ENCOUNTER → 2019-10-23 07:09 | Outpatient (CLI) | payer OTHER, MEDICAID, SELFPAY ==
[2019-02-28 13:29] VITALS: BMI 27.5
== END ==
PROVIDERS: PCP Internal Medicine; Referring Provider Internal Medicine; Visit Provider Internal Medicine
DX: G40.909 Epilepsy, unspecified, not intractable, without status epilepticus (principal); Z53.9 Procedure and treatment not carried out, unspecified reason

== ENCOUNTER → 2019-11-12 07:54 | Outpatient (CLI) | payer OTHER, MEDICAID, SELFPAY ==
[2019-02-28 13:29] VITALS: BMI 27.5
[2019-11-12 08:44] LABS: INR 1.5 (0.9-1.3); Prothrombin Time 16.8 SECONDS (10.1-12.7)
[2019-11-12 08:57] LABS: Add Manual Diff / Slide Review NO; Basophils Absolute Auto 0 /uL (0-100); Basophils Percent Auto 0.5 % (0-2); Eosinophils Absolute Auto 200 /uL (0-450); Eosinophils Percent Auto 2.5 % (2-4); Hematocrit 23.1 % (36-46); Hemoglobin 8.2 g/dL (12.0-16.0); Lymphocytes Absolute Auto 1100 /uL (1100-4500); Lymphocytes Percent Auto 16.2 % (25-40); Mean Corpuscular HGB Conc 35.5 % (30-36); Mean Corpuscular Hemoglobin 34.6 PG (26-34); Mean Corpuscular Volume 97.3 fL (80-100); Monocytes Absolute Auto 800 /uL (0-900); Monocytes Percent Auto 12.1 % (3-14); Neutrophils Absolute Auto 4700 /uL (1500-7000); Neutrophils Percent Auto 68.7 % (50-75); Platelet Count 96 X10^3/uL (150-400); Red Blood Cell Count 2.38 X10^6/uL (4.0-5.2); Red Cell Distribution Width 15.4 % (11.6-14.8); White Blood Cell Count 6.8 X10^3/uL (4.5-11.0)
[2019-11-12 09:05] LABS: Alanine Aminotransferase 54 IU/L (<35); Albumin 2.7 g/dL (3.5-5.0); Albumin Globulin Ratio 1.2 (1.0-2.8); Alkaline Phosphatase 292 U/L (38-126); Aspartate Aminotransferase 68 IU/L (14-36); BUN Creatinine Ratio 20.9 (6-22); Bilirubin Total 2.5 mg/dL (0.2-1.3); Blood Urea Nitrogen 14 mg/dL (7-17); Calcium 7.8 mg/dL (8.4-10.2); Carbon Dioxide 23 mmol/L (22-32); Chloride 101 mmol/L (98-107); Estimated Glomerular Filt Rate > 60.0 mL/min (>60); Globulin 2.3 g/dL (1.7-4.1); Glucose 214 mg/dL (70-100); HEMOLYSIS < 15 (0-50); Potassium 4.8 mmol/L (3.4-5.1); Sodium 126 mmol/L (137-145)
== END ==
PROVIDERS: PCP Internal Medicine; Referring Provider Internal Medicine Gastroenterology; Visit Provider Internal Medicine Gastroenterology
DX: K72.91 Hepatic failure, unspecified with coma (principal); K70.30 Alcoholic cirrhosis of liver without ascites
CPT/HCPCS: 36415; 80053; 85025; 85610

== ENCOUNTER → 2019-11-22 07:31 | Outpatient (CLI) | payer OTHER, MEDICAID, SELFPAY ==
[2019-02-28 13:29] VITALS: BMI 27.5
[2019-11-22 09:01] LABS: BUN Creatinine Ratio 29.8 (6-22); Blood Urea Nitrogen 28 mg/dL (7-17); Carbon Dioxide 24 mmol/L (22-32); Chloride 96 mmol/L (98-107); Estimated Glomerular Filt Rate > 60.0 mL/min (>60); Glucose 185 mg/dL (70-100); HEMOLYSIS < 15 (0-50); Potassium 4.8 mmol/L (3.4-5.1); Sodium 126 mmol/L (137-145)
== END ==
PROVIDERS: PCP Internal Medicine; Referring Provider Internal Medicine Gastroenterology; Visit Provider Internal Medicine Gastroenterology
DX: K70.30 Alcoholic cirrhosis of liver without ascites (principal)
CPT/HCPCS: 36415; 80048

== ENCOUNTER → 2019-11-30 09:32 | Outpatient (CLI) | payer OTHER, MEDICAID, SELFPAY ==
[2019-02-28 13:29] VITALS: BMI 27.5
[2019-11-30 10:38] LABS: BUN Creatinine Ratio 18.8 (6-22); Blood Urea Nitrogen 9 mg/dL (7-17); Carbon Dioxide 21 mmol/L (22-32); Chloride 97 mmol/L (98-107); Estimated Glomerular Filt Rate > 60.0 mL/min (>60); Glucose 333 mg/dL (70-100); HEMOLYSIS < 15 (0-50); Potassium 3.9 mmol/L (3.4-5.1); Sodium 127 mmol/L (137-145)
== END ==
PROVIDERS: PCP Internal Medicine; Referring Provider Internal Medicine Gastroenterology; Visit Provider Internal Medicine Gastroenterology
DX: K70.30 Alcoholic cirrhosis of liver without ascites (principal)
CPT/HCPCS: 36415; 80048

== ENCOUNTER → 2020-02-11 07:42 | Outpatient (CLI) | payer OTHER, MEDICAID, SELFPAY ==
[2019-02-28 13:29] VITALS: BMI 27.5
[2020-02-11 08:44] LABS: Add Manual Diff / Slide Review NO; Basophils Absolute Auto 100 /uL (0-100); Basophils Percent Auto 1.3 % (0-2); Eosinophils Absolute Auto 200 /uL (0-450); Eosinophils Percent Auto 5.1 % (2-4); Hematocrit 31.7 % (36-46); Hemoglobin 10.8 g/dL (12.0-16.0); Lymphocytes Absolute Auto 1400 /uL (1100-4500); Lymphocytes Percent Auto 30.5 % (25-40); Mean Corpuscular HGB Conc 34.1 % (30-36); Mean Corpuscular Hemoglobin 31.1 PG (26-34); Mean Corpuscular Volume 91.2 fL (80-100); Monocytes Absolute Auto 500 /uL (0-900); Monocytes Percent Auto 11.1 % (3-14); Neutrophils Absolute Auto 2400 /uL (1500-7000); Platelet Count 249 X10^3/uL (150-400); Red Blood Cell Count 3.47 X10^6/uL (4.0-5.2); Red Cell Distribution Width 15.8 % (11.6-14.8); White Blood Cell Count 4.6 X10^3/uL (4.5-11.0)
[2020-02-11 08:53] LABS: INR 1.3 (0.9-1.3); Prothrombin Time 14.3 SECONDS (10.1-12.7)
[2020-02-11 08:59] LABS: Alanine Aminotransferase 32 IU/L (<35); Albumin 3.9 g/dL (3.5-5.0); Albumin Globulin Ratio 1.6 (1.0-2.8); Alkaline Phosphatase 179 U/L (38-126); Aspartate Aminotransferase 36 IU/L (14-36); Bilirubin Total 0.5 mg/dL (0.2-1.3); Bilirubin Unconjugated 0.3 mg/dL (0.0-1.1); Blood Urea Nitrogen 28 mg/dL (7-17); Calcium 10.5 mg/dL (8.4-10.2); Carbon Dioxide 28 mmol/L (22-32); Chloride 103 mmol/L (98-107); Estimated Glomerular Filt Rate 52.4 mL/min (>60); Gamma Glutamyl Transpeptidase 40 U/L (12-43); Globulin 2.4 g/dL (1.7-4.1); Glucose 88 mg/dL (70-100); HEMOLYSIS < 15 (0-50); Magnesium 1.5 mg/dL (1.6-2.3); Phosphorous 4.9 mg/dL (2.5-4.5); Potassium 4.7 mmol/L (3.4-5.1); Sodium 137 mmol/L (137-145); Total Protein 6.3 g/dL (6.3-8.2)
[2020-02-12 12:44] LABS: Tacrolimus 7.3 ng/mL (2.0-20.0)
== END ==
PROVIDERS: PCP Internal Medicine; Referring Provider Internal Medicine; Visit Provider Internal Medicine Gastroenterology
DX: Z94.4 Liver transplant status (principal); Z48.298 Encounter for aftercare following other organ transplant; Z79.899 Other long term (current) drug therapy
CPT/HCPCS: 36415; 80048; 80076; 80197; 82977; 83735; 84100; 85025; 85610

== ENCOUNTER → 2020-02-18 07:54 | Outpatient (CLI) | payer OTHER, MEDICAID, SELFPAY ==
[2019-02-28 13:29] VITALS: BMI 27.5
[2020-02-18 08:25] LABS: Add Manual Diff / Slide Review NO; Basophils Absolute Auto 100 /uL (0-100); Basophils Percent Auto 1.5 % (0-2); Eosinophils Absolute Auto 200 /uL (0-450); Lymphocytes Absolute Auto 1300 /uL (1100-4500); Lymphocytes Percent Auto 27.4 % (25-40); Mean Corpuscular HGB Conc 34.4 % (30-36); Mean Corpuscular Hemoglobin 31.3 PG (26-34); Mean Corpuscular Volume 91.1 fL (80-100); Monocytes Absolute Auto 500 /uL (0-900); Neutrophils Absolute Auto 2700 /uL (1500-7000); Neutrophils Percent Auto 56.1 % (50-75); Platelet Count 238 X10^3/uL (150-400); Red Blood Cell Count 3.52 X10^6/uL (4.0-5.2); Red Cell Distribution Width 14.7 % (11.6-14.8); White Blood Cell Count 4.7 X10^3/uL (4.5-11.0)
[2020-02-18 08:32] LABS: INR 1.3 (0.9-1.3); Prothrombin Time 14.6 SECONDS (10.1-12.7)
[2020-02-18 08:48] LABS: Alanine Aminotransferase 32 IU/L (<35); Albumin Globulin Ratio 1.6 (1.0-2.8); Alkaline Phosphatase 163 U/L (38-126); Aspartate Aminotransferase 37 IU/L (14-36); BUN Creatinine Ratio 22.3 (6-22); Bilirubin Total 0.5 mg/dL (0.2-1.3); Bilirubin Unconjugated 0.4 mg/dL (0.0-1.1); Blood Urea Nitrogen 29 mg/dL (7-17); Calcium 10.8 mg/dL (8.4-10.2); Carbon Dioxide 26 mmol/L (22-32); Chloride 103 mmol/L (98-107); Estimated Glomerular Filt Rate 44.1 mL/min (>60); Gamma Glutamyl Transpeptidase 34 U/L (12-43); Globulin 2.5 g/dL (1.7-4.1); Glucose 109 mg/dL (70-100); HEMOLYSIS < 15 (0-50); Magnesium 1.4 mg/dL (1.6-2.3); Phosphorous 5.4 mg/dL (2.5-4.5); Potassium 4.5 mmol/L (3.4-5.1); Sodium 137 mmol/L (137-145); Total Protein 6.5 g/dL (6.3-8.2)
[2020-02-19 08:10] LABS: Tacrolimus 8.5 ng/mL (2.0-20.0)
== END ==
PROVIDERS: PCP Internal Medicine; Referring Provider Internal Medicine; Visit Provider Internal Medicine Gastroenterology
DX: Z48.298 Encounter for aftercare following other organ transplant (principal); Z94.4 Liver transplant status; Z79.899 Other long term (current) drug therapy
CPT/HCPCS: 36415; 80048; 80076; 80197; 82977; 83735; 84100; 85025; 85610

== ENCOUNTER → 2020-02-25 07:52 | Outpatient (CLI) | payer OTHER, MEDICAID, SELFPAY ==
[2019-02-28 13:29] VITALS: BMI 27.5
[2020-02-25 08:33] LABS: Add Manual Diff / Slide Review NO; Basophils Absolute Auto 100 /uL (0-100); Eosinophils Absolute Auto 200 /uL (0-450); Eosinophils Percent Auto 3.2 % (2-4); Hematocrit 30.5 % (36-46); Hemoglobin 10.8 g/dL (12.0-16.0); Lymphocytes Absolute Auto 1500 /uL (1100-4500); Lymphocytes Percent Auto 26.3 % (25-40); Mean Corpuscular HGB Conc 35.5 % (30-36); Mean Corpuscular Hemoglobin 32.2 PG (26-34); Mean Corpuscular Volume 90.6 fL (80-100); Monocytes Absolute Auto 700 /uL (0-900); Monocytes Percent Auto 11.3 % (3-14); Neutrophils Absolute Auto 3400 /uL (1500-7000); Neutrophils Percent Auto 58.2 % (50-75); Platelet Count 215 X10^3/uL (150-400); Red Blood Cell Count 3.36 X10^6/uL (4.0-5.2); Red Cell Distribution Width 14.7 % (11.6-14.8); White Blood Cell Count 5.9 X10^3/uL (4.5-11.0)
[2020-02-25 08:40] LABS: INR 1.3 (0.9-1.3); Prothrombin Time 15.5 SECONDS (10.1-12.7)
[2020-02-25 09:03] LABS: Alanine Aminotransferase 28 IU/L (<35); Albumin Globulin Ratio 1.8 (1.0-2.8); Alkaline Phosphatase 196 U/L (38-126); Aspartate Aminotransferase 29 IU/L (14-36); BUN Creatinine Ratio 21.4 (6-22); Bilirubin Total 0.6 mg/dL (0.2-1.3); Bilirubin Unconjugated 0.4 mg/dL (0.0-1.1); Blood Urea Nitrogen 22 mg/dL (7-17); Calcium 10.3 mg/dL (8.4-10.2); Carbon Dioxide 27 mmol/L (22-32); Chloride 102 mmol/L (98-107); Estimated Glomerular Filt Rate 57.7 mL/min (>60); Gamma Glutamyl Transpeptidase 33 U/L (12-43); Globulin 2.2 g/dL (1.7-4.1); Glucose 106 mg/dL (70-100); HEMOLYSIS < 15 (0-50); Magnesium 1.4 mg/dL (1.6-2.3); Phosphorous 4.9 mg/dL (2.5-4.5); Potassium 4.5 mmol/L (3.4-5.1); Sodium 136 mmol/L (137-145); Total Protein 6.2 g/dL (6.3-8.2)
[2020-02-26 08:41] LABS: Tacrolimus 6.3 ng/mL (2.0-20.0)
== END ==
PROVIDERS: PCP Internal Medicine; Referring Provider Internal Medicine Gastroenterology; Visit Provider Internal Medicine Gastroenterology
DX: Z94.4 Liver transplant status (principal); Z48.298 Encounter for aftercare following other organ transplant; Z79.899 Other long term (current) drug therapy
CPT/HCPCS: 36415; 80048; 80076; 80197; 82977; 83735; 84100; 85025; 85610

== ENCOUNTER → 2020-03-03 07:30 | Outpatient (CLI) | payer OTHER, MEDICAID, SELFPAY ==
[2019-02-28 13:29] VITALS: BMI 27.5
[2020-03-03 08:44] LABS: Add Manual Diff / Slide Review NO; Basophils Absolute Auto 100 /uL (0-100); Basophils Percent Auto 1.3 % (0-2); Eosinophils Absolute Auto 200 /uL (0-450); Hematocrit 31.5 % (36-46); Lymphocytes Absolute Auto 1500 /uL (1100-4500); Lymphocytes Percent Auto 27.8 % (25-40); Mean Corpuscular HGB Conc 34.8 % (30-36); Mean Corpuscular Hemoglobin 31.5 PG (26-34); Mean Corpuscular Volume 90.3 fL (80-100); Monocytes Absolute Auto 600 /uL (0-900); Neutrophils Absolute Auto 2900 /uL (1500-7000); Neutrophils Percent Auto 54.9 % (50-75); Platelet Count 239 X10^3/uL (150-400); Red Blood Cell Count 3.48 X10^6/uL (4.0-5.2); Red Cell Distribution Width 14.4 % (11.6-14.8); White Blood Cell Count 5.3 X10^3/uL (4.5-11.0)
[2020-03-03 09:06] LABS: INR 1.4 (0.9-1.3); Prothrombin Time 15.7 SECONDS (10.1-12.7)
[2020-03-03 09:19] LABS: Alanine Aminotransferase 37 IU/L (<35); Albumin 3.9 g/dL (3.5-5.0); Albumin Globulin Ratio 1.7 (1.0-2.8); Alkaline Phosphatase 189 U/L (38-126); Aspartate Aminotransferase 37 IU/L (14-36); BUN Creatinine Ratio 21.4 (6-22); Bilirubin Total 0.3 mg/dL (0.2-1.3); Bilirubin Unconjugated 0.3 mg/dL (0.0-1.1); Blood Urea Nitrogen 24 mg/dL (7-17); Calcium 10.2 mg/dL (8.4-10.2); Carbon Dioxide 28 mmol/L (22-32); Chloride 102 mmol/L (98-107); Estimated Glomerular Filt Rate 52.4 mL/min (>60); Gamma Glutamyl Transpeptidase 32 U/L (12-43); Globulin 2.3 g/dL (1.7-4.1); Glucose 101 mg/dL (70-100); HEMOLYSIS < 15 (0-50); Magnesium 1.4 mg/dL (1.6-2.3); Phosphorous 5.1 mg/dL (2.5-4.5); Potassium 4.9 mmol/L (3.4-5.1); Sodium 135 mmol/L (137-145); Total Protein 6.2 g/dL (6.3-8.2)
[2020-03-04 09:46] LABS: Tacrolimus 6.9 ng/mL (2.0-20.0)
== END ==
PROVIDERS: PCP Internal Medicine; Referring Provider Internal Medicine Gastroenterology; Visit Provider Internal Medicine Gastroenterology
DX: Z94.9 Transplanted organ and tissue status, unspecified (principal); Z48.298 Encounter for aftercare following other organ transplant; Z79.899 Other long term (current) drug therapy
CPT/HCPCS: 36415; 80048; 80076; 80197; 82977; 83735; 84100; 85025; 85610

== ENCOUNTER → 2020-03-17 07:54 | Outpatient (CLI) | payer OTHER, MEDICAID, SELFPAY ==
[2019-02-28 13:29] VITALS: BMI 27.5
[2020-03-17 08:49] LABS: Add Manual Diff / Slide Review NO; Basophils Absolute Auto 100 /uL (0-100); Basophils Percent Auto 1.4 % (0-2); Eosinophils Absolute Auto 200 /uL (0-450); Eosinophils Percent Auto 3.9 % (2-4); Hematocrit 32.6 % (36-46); Hemoglobin 11.3 g/dL (12.0-16.0); Lymphocytes Absolute Auto 1200 /uL (1100-4500); Lymphocytes Percent Auto 28.3 % (25-40); Mean Corpuscular HGB Conc 34.6 % (30-36); Mean Corpuscular Hemoglobin 31.4 PG (26-34); Mean Corpuscular Volume 90.9 fL (80-100); Monocytes Absolute Auto 500 /uL (0-900); Monocytes Percent Auto 10.5 % (3-14); Neutrophils Absolute Auto 2400 /uL (1500-7000); Neutrophils Percent Auto 55.9 % (50-75); Platelet Count 218 X10^3/uL (150-400); Red Blood Cell Count 3.58 X10^6/uL (4.0-5.2); Red Cell Distribution Width 13.6 % (11.6-14.8); White Blood Cell Count 4.4 X10^3/uL (4.5-11.0)
[2020-03-17 09:00] LABS: INR 1.2 (0.9-1.3); Prothrombin Time 14.1 SECONDS (10.1-12.7)
[2020-03-17 09:36] LABS: Alanine Aminotransferase 56 IU/L (<35); Albumin 4.1 g/dL (3.5-5.0); Alkaline Phosphatase 141 U/L (38-126); Aspartate Aminotransferase 49 IU/L (14-36); BUN Creatinine Ratio 19.8 (6-22); Bilirubin Total 0.5 mg/dL (0.2-1.3); Bilirubin Unconjugated 0.4 mg/dL (0.0-1.1); Blood Urea Nitrogen 20 mg/dL (7-17); Carbon Dioxide 29 mmol/L (22-32); Chloride 101 mmol/L (98-107); Gamma Glutamyl Transpeptidase 28 U/L (12-43); Globulin 2.1 g/dL (1.7-4.1); Glucose 114 mg/dL (70-100); HEMOLYSIS < 15 (0-50); Magnesium 1.4 mg/dL (1.6-2.3); Phosphorous 5.1 mg/dL (2.5-4.5); Potassium 4.5 mmol/L (3.4-5.1); Sodium 138 mmol/L (137-145); Total Protein 6.2 g/dL (6.3-8.2)
[2020-03-18 09:54] LABS: Tacrolimus 6.3 ng/mL (2.0-20.0)
== END ==
PROVIDERS: PCP Internal Medicine; Referring Provider Internal Medicine Gastroenterology; Visit Provider Internal Medicine Gastroenterology
DX: Z94.4 Liver transplant status (principal); Z48.298 Encounter for aftercare following other organ transplant; Z79.899 Other long term (current) drug therapy
CPT/HCPCS: 36415; 80048; 80076; 80197; 82977; 83735; 84100; 85025; 85610

== ENCOUNTER → 2020-03-26 08:08 | Outpatient (CLI) | payer OTHER, MEDICAID, SELFPAY ==
[2019-02-28 13:29] VITALS: BMI 27.5
[2020-03-26 09:11] LABS: Add Manual Diff / Slide Review NO; Basophils Absolute Auto 100 /uL (0-100); Basophils Percent Auto 1.5 % (0-2); Eosinophils Absolute Auto 200 /uL (0-450); Eosinophils Percent Auto 4.1 % (2-4); Hematocrit 32.1 % (36-46); Lymphocytes Absolute Auto 1500 /uL (1100-4500); Lymphocytes Percent Auto 29.1 % (25-40); Mean Corpuscular HGB Conc 34.4 % (30-36); Mean Corpuscular Hemoglobin 31.4 PG (26-34); Mean Corpuscular Volume 91.2 fL (80-100); Monocytes Absolute Auto 500 /uL (0-900); Monocytes Percent Auto 10.4 % (3-14); Neutrophils Absolute Auto 2800 /uL (1500-7000); Neutrophils Percent Auto 54.9 % (50-75); Platelet Count 220 X10^3/uL (150-400); Red Blood Cell Count 3.52 X10^6/uL (4.0-5.2)
[2020-03-26 09:16] LABS: INR 1.2 (0.9-1.3); Prothrombin Time 13.5 SECONDS (10.1-12.7)
[2020-03-26 09:27] LABS: Alanine Aminotransferase 52 IU/L (<35); Albumin 4.2 g/dL (3.5-5.0); Albumin Globulin Ratio 1.7 (1.0-2.8); Alkaline Phosphatase 142 U/L (38-126); Aspartate Aminotransferase 43 IU/L (14-36); Bilirubin Total 0.4 mg/dL (0.2-1.3); Bilirubin Unconjugated 0.4 mg/dL (0.0-1.1); Blood Urea Nitrogen 19 mg/dL (7-17); Calcium 10.1 mg/dL (8.4-10.2); Carbon Dioxide 28 mmol/L (22-32); Chloride 105 mmol/L (98-107); Estimated Glomerular Filt Rate > 60.0 mL/min (>60); Gamma Glutamyl Transpeptidase 32 U/L (12-43); Globulin 2.5 g/dL (1.7-4.1); Glucose 136 mg/dL (70-100); HEMOLYSIS < 15 (0-50); Magnesium 1.6 mg/dL (1.6-2.3); Phosphorous 4.5 mg/dL (2.5-4.5); Potassium 4.3 mmol/L (3.4-5.1); Sodium 138 mmol/L (137-145); Total Protein 6.7 g/dL (6.3-8.2)
== END ==
PROVIDERS: PCP Internal Medicine; Referring Provider Internal Medicine Gastroenterology; Visit Provider Internal Medicine Gastroenterology
DX: Z94.4 Liver transplant status (principal); Z48.298 Encounter for aftercare following other organ transplant; Z79.899 Other long term (current) drug therapy
CPT/HCPCS: 36415; 80048; 80076; 80197; 82977; 83735; 84100; 85025; 85610

== ENCOUNTER → 2020-04-01 08:11 | Outpatient (CLI) | payer OTHER, MEDICAID, SELFPAY ==
[2019-02-28 13:29] VITALS: BMI 27.5
[2020-04-01 09:17] LABS: Add Manual Diff / Slide Review NO; Basophils Absolute Auto 100 /uL (0-100); Basophils Percent Auto 1.2 % (0-2); Eosinophils Absolute Auto 200 /uL (0-450); Eosinophils Percent Auto 3.9 % (2-4); Hematocrit 31.7 % (36-46); Hemoglobin 10.8 g/dL (12.0-16.0); Lymphocytes Absolute Auto 1600 /uL (1100-4500); Lymphocytes Percent Auto 34.8 % (25-40); Mean Corpuscular HGB Conc 34.2 % (30-36); Mean Corpuscular Volume 90.6 fL (80-100); Monocytes Absolute Auto 500 /uL (0-900); Monocytes Percent Auto 11.4 % (3-14); Neutrophils Absolute Auto 2200 /uL (1500-7000); Neutrophils Percent Auto 48.7 % (50-75); Platelet Count 233 X10^3/uL (150-400); Red Cell Distribution Width 12.9 % (11.6-14.8); White Blood Cell Count 4.6 X10^3/uL (4.5-11.0)
[2020-04-01 09:22] LABS: INR 1.2 (0.9-1.3); Prothrombin Time 13.4 SECONDS (10.1-12.7)
[2020-04-01 09:52] LABS: Alanine Aminotransferase 41 IU/L (<35); Albumin 4.1 g/dL (3.5-5.0); Albumin Globulin Ratio 1.9 (1.0-2.8); Alkaline Phosphatase 159 U/L (38-126); Aspartate Aminotransferase 38 IU/L (14-36); BUN Creatinine Ratio 17.6 (6-22); Bilirubin Total 0.5 mg/dL (0.2-1.3); Bilirubin Unconjugated 0.4 mg/dL (0.0-1.1); Blood Urea Nitrogen 16 mg/dL (7-17); Carbon Dioxide 28 mmol/L (22-32); Chloride 104 mmol/L (98-107); Estimated Glomerular Filt Rate > 60.0 mL/min (>60); Gamma Glutamyl Transpeptidase 33 U/L (12-43); Globulin 2.2 g/dL (1.7-4.1); Glucose 104 mg/dL (70-100); HEMOLYSIS < 15 (0-50); Magnesium 1.4 mg/dL (1.6-2.3); Phosphorous 4.7 mg/dL (2.5-4.5); Potassium 4.5 mmol/L (3.4-5.1); Sodium 137 mmol/L (137-145); Total Protein 6.3 g/dL (6.3-8.2)
[2020-04-01 16:33] LABS: COVID19 -Nasal RAPID Negative (Negative)
[2020-04-02 08:36] LABS: Tacrolimus 5.5 ng/mL (2.0-20.0)
[2020-04-03 09:18] LABS: CMV DNA, Quant Real Time PCR Negative (Negative)
== END ==
PROVIDERS: Nurse Practitioner; PCP Internal Medicine; Referring Provider Internal Medicine; Visit Provider Internal Medicine Gastroenterology
DX: Z94.4 Liver transplant status (principal); Z48.298 Encounter for aftercare following other organ transplant; Z79.899 Other long term (current) drug therapy; Z20.822 Contact with and (suspected) exposure to COVID-19
CPT/HCPCS: 36415; 80048; 80076; 80197; 82977; 83735; 84100; 85025; 85610; 87497; 87635

== ENCOUNTER → 2020-04-17 08:00 | Outpatient (CLI) | payer OTHER, MEDICAID, SELFPAY ==
[2019-02-28 13:29] VITALS: BMI 27.5
[2020-04-17 08:40] LABS: Add Manual Diff / Slide Review NO; Basophils Absolute Auto 0 /uL (0-100); Basophils Percent Auto 1.1 % (0-2); Eosinophils Absolute Auto 100 /uL (0-450); Eosinophils Percent Auto 3.3 % (2-4); Hematocrit 30.3 % (36-46); Hemoglobin 10.5 g/dL (12.0-16.0); Lymphocytes Absolute Auto 1600 /uL (1100-4500); Lymphocytes Percent Auto 37.6 % (25-40); Mean Corpuscular HGB Conc 34.8 % (30-36); Mean Corpuscular Hemoglobin 31.5 PG (26-34); Mean Corpuscular Volume 90.5 fL (80-100); Monocytes Absolute Auto 500 /uL (0-900); Monocytes Percent Auto 12.2 % (3-14); Neutrophils Absolute Auto 2000 /uL (1500-7000); Neutrophils Percent Auto 45.8 % (50-75); Platelet Count 228 X10^3/uL (150-400); Red Blood Cell Count 3.34 X10^6/uL (4.0-5.2); Red Cell Distribution Width 12.6 % (11.6-14.8); White Blood Cell Count 4.3 X10^3/uL (4.5-11.0)
[2020-04-17 08:41] LABS: INR 1.1 (0.9-1.3); Prothrombin Time 12.2 SECONDS (10.1-12.7)
[2020-04-17 08:54] LABS: Alanine Aminotransferase 40 IU/L (<35); Albumin 4.1 g/dL (3.5-5.0); Albumin Globulin Ratio 1.9 (1.0-2.8); Alkaline Phosphatase 131 U/L (38-126); Aspartate Aminotransferase 35 IU/L (14-36); Bilirubin Total 0.3 mg/dL (0.2-1.3); Bilirubin Unconjugated 0.3 mg/dL (0.0-1.1); Blood Urea Nitrogen 16 mg/dL (7-17); Calcium 9.9 mg/dL (8.4-10.2); Carbon Dioxide 27 mmol/L (22-32); Chloride 105 mmol/L (98-107); Estimated Glomerular Filt Rate > 60.0 mL/min (>60); Gamma Glutamyl Transpeptidase 29 U/L (12-43); Globulin 2.2 g/dL (1.7-4.1); Glucose 91 mg/dL (70-100); HEMOLYSIS < 15 (0-50); Magnesium 1.5 mg/dL (1.6-2.3); Phosphorous 4.6 mg/dL (2.5-4.5); Potassium 4.3 mmol/L (3.4-5.1); Sodium 137 mmol/L (137-145); Total Protein 6.3 g/dL (6.3-8.2)
[2020-04-18 13:40] LABS: Tacrolimus 5.8 ng/mL (2.0-20.0)
== END ==
PROVIDERS: PCP Internal Medicine; Referring Provider Internal Medicine Gastroenterology; Visit Provider Internal Medicine Gastroenterology
DX: Z48.298 Encounter for aftercare following other organ transplant (principal); Z79.899 Other long term (current) drug therapy; Z94.4 Liver transplant status
CPT/HCPCS: 36415; 80048; 80076; 80197; 82977; 83735; 84100; 85025; 85610

== ENCOUNTER → 2020-05-01 08:03 | Outpatient (CLI) | payer OTHER, MEDICAID, SELFPAY ==
[2019-02-28 13:29] VITALS: BMI 27.5
[2020-05-01 08:44] LABS: Add Manual Diff / Slide Review NO; Basophils Absolute Auto 100 /uL (0-100); Basophils Percent Auto 1.3 % (0-2); Eosinophils Absolute Auto 200 /uL (0-450); Eosinophils Percent Auto 3.9 % (2-4); Hematocrit 31.8 % (36-46); Lymphocytes Absolute Auto 1400 /uL (1100-4500); Lymphocytes Percent Auto 33.4 % (25-40); Mean Corpuscular HGB Conc 34.6 % (30-36); Mean Corpuscular Hemoglobin 31.2 PG (26-34); Mean Corpuscular Volume 90.3 fL (80-100); Monocytes Absolute Auto 500 /uL (0-900); Monocytes Percent Auto 11.3 % (3-14); Neutrophils Absolute Auto 2100 /uL (1500-7000); Neutrophils Percent Auto 50.1 % (50-75); Platelet Count 218 X10^3/uL (150-400); Red Blood Cell Count 3.53 X10^6/uL (4.0-5.2); Red Cell Distribution Width 12.7 % (11.6-14.8); White Blood Cell Count 4.2 X10^3/uL (4.5-11.0)
[2020-05-01 08:49] LABS: INR 1.2 (0.9-1.3); Prothrombin Time 13.2 SECONDS (10.1-12.7)
[2020-05-01 08:55] LABS: HEMOLYSIS < 15 (0-50); Iron 130 ug/dL (37-170)
[2020-05-01 08:58] LABS: Alanine Aminotransferase 34 IU/L (<35); Albumin 4.3 g/dL (3.5-5.0); Albumin Globulin Ratio 1.7 (1.0-2.8); Alkaline Phosphatase 117 U/L (38-126); Aspartate Aminotransferase 32 IU/L (14-36); BUN Creatinine Ratio 24.7 (6-22); Bilirubin Total 0.6 mg/dL (0.2-1.3); Bilirubin Unconjugated 0.5 mg/dL (0.0-1.1); Blood Urea Nitrogen 23 mg/dL (7-17); Calcium 10.1 mg/dL (8.4-10.2); Carbon Dioxide 32 mmol/L (22-32); Chloride 100 mmol/L (98-107); Estimated Glomerular Filt Rate > 60.0 mL/min (>60); Gamma Glutamyl Transpeptidase 31 U/L (12-43); Globulin 2.6 g/dL (1.7-4.1); Glucose 100 mg/dL (70-100); HEMOLYSIS < 15 (0-50); Magnesium 1.5 mg/dL (1.6-2.3); Phosphorous 4.7 mg/dL (2.5-4.5); Potassium 4.3 mmol/L (3.4-5.1); Sodium 137 mmol/L (137-145); Total Protein 6.9 g/dL (6.3-8.2)
[2020-05-01 09:05] LABS: Percent Iron Saturation 47 % (15-50); Total Iron Binding Capacity 277 ug/dL (265-497); Transferrin 204 mg/dL (206-381)
[2020-05-01 09:31] LABS: Ferritin 200 ng/mL (6-137)
[2020-05-02 10:36] LABS: Tacrolimus 5.7 ng/mL (2.0-20.0)
== END ==
PROVIDERS: PCP Internal Medicine; Referring Provider Internal Medicine Gastroenterology; Visit Provider Internal Medicine Gastroenterology
DX: Z94.4 Liver transplant status (principal); Z48.298 Encounter for aftercare following other organ transplant; Z79.899 Other long term (current) drug therapy
CPT/HCPCS: 36415; 80048; 80076; 80197; 82728; 82977; 83540; 83550; 83735; 84100; 85025; 85610

== ENCOUNTER → 2020-05-15 07:47 | Outpatient (CLI) | payer OTHER, MEDICAID, SELFPAY ==
[2019-02-28 13:29] VITALS: BMI 27.5
[2020-05-15 09:14] LABS: INR 1.1 (0.9-1.3); Prothrombin Time 12.8 SECONDS (10.1-12.7)
[2020-05-15 09:17] LABS: Add Manual Diff / Slide Review NO; Basophils Absolute Auto 0 /uL (0-100); Basophils Percent Auto 1.2 % (0-2); Eosinophils Absolute Auto 100 /uL (0-450); Hemoglobin 10.5 g/dL (12.0-16.0); Lymphocytes Absolute Auto 1300 /uL (1100-4500); Lymphocytes Percent Auto 30.8 % (25-40); Mean Corpuscular Hemoglobin 31.4 PG (26-34); Mean Corpuscular Volume 89.6 fL (80-100); Monocytes Absolute Auto 400 /uL (0-900); Monocytes Percent Auto 10.3 % (3-14); Neutrophils Absolute Auto 2200 /uL (1500-7000); Neutrophils Percent Auto 54.7 % (50-75); Platelet Count 201 X10^3/uL (150-400); Red Blood Cell Count 3.35 X10^6/uL (4.0-5.2); Red Cell Distribution Width 12.6 % (11.6-14.8); White Blood Cell Count 4.1 X10^3/uL (4.5-11.0)
[2020-05-15 09:42] LABS: Alanine Aminotransferase 24 IU/L (<35); Albumin 4.3 g/dL (3.5-5.0); Alkaline Phosphatase 113 U/L (38-126); Aspartate Aminotransferase 25 IU/L (14-36); BUN Creatinine Ratio 28.8 (6-22); Bilirubin Total 0.5 mg/dL (0.2-1.3); Bilirubin Unconjugated 0.3 mg/dL (0.0-1.1); Blood Urea Nitrogen 38 mg/dL (7-17); Calcium 10.2 mg/dL (8.4-10.2); Carbon Dioxide 30 mmol/L (22-32); Chloride 100 mmol/L (98-107); Estimated Glomerular Filt Rate 43.3 mL/min (>60); Globulin 2.2 g/dL (1.7-4.1); Glucose 105 mg/dL (70-100); HEMOLYSIS < 15 (0-50); Magnesium 1.9 mg/dL (1.6-2.3); Phosphorous 4.8 mg/dL (2.5-4.5); Potassium 4.6 mmol/L (3.4-5.1); Sodium 136 mmol/L (137-145); Total Protein 6.5 g/dL (6.3-8.2)
[2020-05-15 10:04] LABS: Gamma Glutamyl Transpeptidase 32 U/L (12-43)
[2020-05-16 15:03] LABS: Tacrolimus 6.8 ng/mL (2.0-20.0)
== END ==
PROVIDERS: PCP Internal Medicine; Referring Provider Internal Medicine Gastroenterology; Visit Provider Internal Medicine Gastroenterology
DX: Z94.4 Liver transplant status (principal); Z79.899 Other long term (current) drug therapy; Z48.298 Encounter for aftercare following other organ transplant
CPT/HCPCS: 36415; 80048; 80076; 80197; 82977; 83735; 84100; 85025; 85610

== ENCOUNTER → 2020-06-10 13:05 | Outpatient (CLI) | payer OTHER, MEDICAID, SELFPAY ==
[2019-02-28 13:29] VITALS: BMI 27.5
[2020-06-10] MEDS: COVID-19 VACC #1, MRNA(MOD) 100 MCG/0.5 ML VIAL IM (13:14)
== END ==
PROVIDERS: PCP Internal Medicine; Visit Provider Internal Medicine
DX: Z23 Encounter for immunization (principal)
CPT/HCPCS: 0011A; 91301

== ENCOUNTER → 2020-06-12 08:14 | Outpatient (CLI) | payer OTHER, MEDICAID, SELFPAY ==
[2019-02-28 13:29] VITALS: BMI 27.5
[2020-06-12 09:05] LABS: Add Manual Diff / Slide Review NO; Basophils Absolute Auto 100 /uL (0-100); Basophils Percent Auto 1.3 % (0-2); Eosinophils Absolute Auto 200 /uL (0-450); Eosinophils Percent Auto 4.5 % (2-4); Hematocrit 32.7 % (36-46); Hemoglobin 11.3 g/dL (12.0-16.0); Lymphocytes Absolute Auto 1200 /uL (1100-4500); Mean Corpuscular HGB Conc 34.6 % (30-36); Mean Corpuscular Hemoglobin 30.8 PG (26-34); Mean Corpuscular Volume 88.9 fL (80-100); Monocytes Absolute Auto 500 /uL (0-900); Monocytes Percent Auto 11.1 % (3-14); Neutrophils Absolute Auto 2500 /uL (1500-7000); Neutrophils Percent Auto 56.1 % (50-75); Platelet Count 197 X10^3/uL (150-400); Red Blood Cell Count 3.68 X10^6/uL (4.0-5.2); Red Cell Distribution Width 12.7 % (11.6-14.8); White Blood Cell Count 4.5 X10^3/uL (4.5-11.0)
[2020-06-12 09:11] LABS: INR 1.2 (0.9-1.3); Prothrombin Time 14.2 SECONDS (10.1-12.7)
[2020-06-12 09:30] LABS: Alanine Aminotransferase 22 IU/L (<35); Albumin 4.4 g/dL (3.5-5.0); Albumin Globulin Ratio 1.9 (1.0-2.8); Alkaline Phosphatase 137 U/L (38-126); Aspartate Aminotransferase 27 IU/L (14-36); BUN Creatinine Ratio 28.8 (6-22); Bilirubin Total 0.8 mg/dL (0.2-1.3); Bilirubin Unconjugated 0.7 mg/dL (0.0-1.1); Blood Urea Nitrogen 36 mg/dL (7-17); Calcium 10.3 mg/dL (8.4-10.2); Carbon Dioxide 27 mmol/L (22-32); Chloride 100 mmol/L (98-107); Estimated Glomerular Filt Rate 46.1 mL/min (>60); Gamma Glutamyl Transpeptidase 27 U/L (12-43); Globulin 2.3 g/dL (1.7-4.1); Glucose 106 mg/dL (70-100); HEMOLYSIS < 15 (0-50); Magnesium 1.5 mg/dL (1.6-2.3); Phosphorous 4.6 mg/dL (2.5-4.5); Potassium 4.5 mmol/L (3.4-5.1); Sodium 137 mmol/L (137-145); Total Protein 6.7 g/dL (6.3-8.2)
[2020-06-14 11:55] LABS: Tacrolimus 7.5 ng/mL (2.0-20.0)
== END ==
PROVIDERS: PCP Internal Medicine; Referring Provider Internal Medicine Gastroenterology; Visit Provider Internal Medicine Gastroenterology
DX: Z94.4 Liver transplant status (principal); Z48.298 Encounter for aftercare following other organ transplant; Z79.899 Other long term (current) drug therapy
CPT/HCPCS: 36415; 80048; 80076; 80197; 82977; 83735; 84100; 85025; 85610

== ENCOUNTER → 2020-07-08 08:28 | Outpatient (CLI) | payer OTHER, MEDICAID, SELFPAY ==
[2019-02-28 13:29] VITALS: BMI 27.5
[2020-07-08] MEDS: COVID-19 VACC #2, MRNA(MOD) 100 MCG/0.5 ML VIAL IM (08:39)
== END ==
PROVIDERS: PCP Internal Medicine; Visit Provider Internal Medicine
DX: Z23 Encounter for immunization (principal)
CPT/HCPCS: 0012A; 91301

== ENCOUNTER → 2020-07-13 08:02 | Outpatient (CLI) | payer OTHER, MEDICAID, SELFPAY ==
[2019-02-28 13:29] VITALS: BMI 27.5
[2020-07-13 09:08] LABS: Add Manual Diff / Slide Review NO; Basophils Absolute Auto 100 /uL (0-100); Basophils Percent Auto 1.2 % (0-2); Eosinophils Absolute Auto 200 /uL (0-450); Eosinophils Percent Auto 4.4 % (2-4); Lymphocytes Absolute Auto 1300 /uL (1100-4500); Lymphocytes Percent Auto 32.4 % (25-40); Mean Corpuscular HGB Conc 35.5 % (30-36); Mean Corpuscular Hemoglobin 31.3 PG (26-34); Mean Corpuscular Volume 88.2 fL (80-100); Monocytes Absolute Auto 400 /uL (0-900); Monocytes Percent Auto 9.5 % (3-14); Neutrophils Absolute Auto 2200 /uL (1500-7000); Neutrophils Percent Auto 52.5 % (50-75); Platelet Count 171 X10^3/uL (150-400); Red Blood Cell Count 3.52 X10^6/uL (4.0-5.2); Red Cell Distribution Width 12.9 % (11.6-14.8); White Blood Cell Count 4.1 X10^3/uL (4.5-11.0)
[2020-07-13 09:13] LABS: INR 1.2 (0.9-1.3); Prothrombin Time 13.7 SECONDS (10.1-12.7)
[2020-07-13 10:29] LABS: Alanine Aminotransferase 28 IU/L (<35); Albumin 4.3 g/dL (3.5-5.0); Albumin Globulin Ratio 1.8 (1.0-2.8); Alkaline Phosphatase 131 U/L (38-126); Aspartate Aminotransferase 30 IU/L (14-36); BUN Creatinine Ratio 41.1 (6-22); Bilirubin Total 0.5 mg/dL (0.2-1.3); Bilirubin Unconjugated 0.2 mg/dL (0.0-1.1); Blood Urea Nitrogen 51 mg/dL (7-17); Calcium 9.8 mg/dL (8.4-10.2); Carbon Dioxide 27 mmol/L (22-32); Chloride 102 mmol/L (98-107); Estimated Glomerular Filt Rate 46.6 mL/min (>60); Gamma Glutamyl Transpeptidase 26 U/L (12-43); Globulin 2.4 g/dL (1.7-4.1); Glucose 107 mg/dL (70-100); HEMOLYSIS < 15 (0-50); Magnesium 1.6 mg/dL (1.6-2.3); Phosphorous 4.1 mg/dL (2.5-4.5); Potassium 4.1 mmol/L (3.4-5.1); Sodium 138 mmol/L (137-145); Total Protein 6.7 g/dL (6.3-8.2)
[2020-07-14 12:53] LABS: Tacrolimus 6.4 ng/mL (2.0-20.0)
== END ==
PROVIDERS: PCP Internal Medicine; Referring Provider Internal Medicine Gastroenterology; Visit Provider Internal Medicine Gastroenterology
DX: Z48.298 Encounter for aftercare following other organ transplant (principal); Z79.899 Other long term (current) drug therapy; Z94.4 Liver transplant status
CPT/HCPCS: 36415; 80048; 80076; 80197; 82977; 83735; 84100; 85025; 85610

== ENCOUNTER → 2020-08-14 08:20 | Outpatient (CLI) | payer OTHER, MEDICAID, SELFPAY ==
[2019-02-28 13:29] VITALS: BMI 27.5
[2020-08-14 09:11] LABS: INR 1.1 (0.9-1.3); Prothrombin Time 12.7 SECONDS (10.1-12.7)
[2020-08-14 09:13] LABS: Add Manual Diff / Slide Review NO; Basophils Absolute Auto 100 /uL (0-100); Basophils Percent Auto 1.2 % (0-2); Eosinophils Absolute Auto 100 /uL (0-450); Eosinophils Percent Auto 2.8 % (2-4); Hematocrit 33.6 % (36-46); Hemoglobin 11.8 g/dL (12.0-16.0); Lymphocytes Absolute Auto 1400 /uL (1100-4500); Lymphocytes Percent Auto 27.5 % (25-40); Mean Corpuscular HGB Conc 35.2 % (30-36); Mean Corpuscular Volume 88.1 fL (80-100); Monocytes Absolute Auto 500 /uL (0-900); Monocytes Percent Auto 9.8 % (3-14); Neutrophils Absolute Auto 3000 /uL (1500-7000); Neutrophils Percent Auto 58.7 % (50-75); Platelet Count 209 X10^3/uL (150-400); Red Blood Cell Count 3.81 X10^6/uL (4.0-5.2); Red Cell Distribution Width 13.2 % (11.6-14.8)
[2020-08-14 09:23] LABS: Alanine Aminotransferase 26 IU/L (<35); Albumin 4.7 g/dL (3.5-5.0); Albumin Globulin Ratio 1.8 (1.0-2.8); Alkaline Phosphatase 154 U/L (38-126); Aspartate Aminotransferase 34 IU/L (14-36); BUN Creatinine Ratio 34.7 (6-22); Bilirubin Total 0.6 mg/dL (0.2-1.3); Bilirubin Unconjugated 0.4 mg/dL (0.0-1.1); Blood Urea Nitrogen 42 mg/dL (7-17); Calcium 10.2 mg/dL (8.4-10.2); Carbon Dioxide 27 mmol/L (22-32); Chloride 99 mmol/L (98-107); Estimated Glomerular Filt Rate 47.9 mL/min (>60); Gamma Glutamyl Transpeptidase 30 U/L (12-43); Globulin 2.6 g/dL (1.7-4.1); Glucose 101 mg/dL (70-100); HEMOLYSIS < 15 (0-50); Magnesium 1.8 mg/dL (1.6-2.3); Phosphorous 4.5 mg/dL (2.5-4.5); Potassium 4.2 mmol/L (3.4-5.1); Sodium 137 mmol/L (137-145); Total Protein 7.3 g/dL (6.3-8.2)
[2020-08-15 11:23] LABS: Tacrolimus 5.9 ng/mL (2.0-20.0)
== END ==
PROVIDERS: PCP Internal Medicine; Referring Provider Internal Medicine Gastroenterology; Visit Provider Internal Medicine Gastroenterology
DX: Z94.4 Liver transplant status (principal); Z48.298 Encounter for aftercare following other organ transplant; Z79.899 Other long term (current) drug therapy
CPT/HCPCS: 36415; 80048; 80076; 80197; 82977; 83735; 84100; 85025; 85610

== ENCOUNTER → 2020-09-01 12:18 | Outpatient (CLI) | payer OTHER, MEDICAID, SELFPAY ==
[2019-02-28 13:29] VITALS: BMI 27.5
--- NOTE | 2020-09-01 12:20 | DI.RAD.S_ITS ---
PROCEDURE: XR KNEE RT 3V INDICATIONS: right knee pain TECHNIQUE: 3 views of the knee were acquired. COMPARISON: None. FINDINGS: Bones: No fractures or dislocations. No suspicious bony lesions. Mild osteoarthritic changes are present with small periarticular osteophytes. Soft tissues: No joint effusion. No suspicious soft tissue calcifications. IMPRESSION: Mild osteoarthritis. Dictated by: Gavin Paez M.D. on 09/01/2020 at 17:43 Approved by: Gavin Paez M.D. on 09/01/2020 at 17:46
== END ==
PROVIDERS: PCP Internal Medicine; Referring Provider Internal Medicine; Visit Provider Internal Medicine
DX: M25.561 Pain in right knee (principal); M17.11 Unilateral primary osteoarthritis, right knee
CPT/HCPCS: 73562

== ENCOUNTER → 2020-09-11 08:05 | Outpatient (CLI) | payer OTHER, MEDICAID, SELFPAY ==
[2019-02-28 13:29] VITALS: BMI 27.5
[2020-09-11 09:38] LABS: Add Manual Diff / Slide Review NO; Basophils Absolute Auto 100 /uL (0-100); Basophils Percent Auto 1.4 % (0-2); Eosinophils Absolute Auto 100 /uL (0-450); Eosinophils Percent Auto 3.3 % (2-4); Lymphocytes Absolute Auto 1500 /uL (1100-4500); Mean Corpuscular HGB Conc 34.5 % (30-36); Mean Corpuscular Hemoglobin 30.6 PG (26-34); Mean Corpuscular Volume 88.9 fL (80-100); Monocytes Absolute Auto 500 /uL (0-900); Monocytes Percent Auto 11.1 % (3-14); Neutrophils Absolute Auto 2200 /uL (1500-7000); Neutrophils Percent Auto 49.2 % (50-75); Platelet Count 213 X10^3/uL (150-400); Red Cell Distribution Width 13.3 % (11.6-14.8); White Blood Cell Count 4.4 X10^3/uL (4.5-11.0)
[2020-09-11 09:43] LABS: INR 1.2 (0.9-1.3); Prothrombin Time 13.7 SECONDS (10.1-12.7)
[2020-09-11 09:51] LABS: Alanine Aminotransferase 24 IU/L (<35); Albumin 4.3 g/dL (3.5-5.0); Albumin Globulin Ratio 1.7 (1.0-2.8); Alkaline Phosphatase 139 U/L (38-126); Aspartate Aminotransferase 31 IU/L (14-36); BUN Creatinine Ratio 31.6 (6-22); Bilirubin Total 0.6 mg/dL (0.2-1.3); Bilirubin Unconjugated 0.4 mg/dL (0.0-1.1); Blood Urea Nitrogen 36 mg/dL (7-17); Calcium 9.7 mg/dL (8.4-10.2); Carbon Dioxide 27 mmol/L (22-32); Chloride 102 mmol/L (98-107); Estimated Glomerular Filt Rate 51.3 mL/min (>60); Gamma Glutamyl Transpeptidase 32 U/L (12-43); Globulin 2.5 g/dL (1.7-4.1); Glucose 92 mg/dL (70-100); HEMOLYSIS < 15 (0-50); Magnesium 1.7 mg/dL (1.6-2.3); Phosphorous 4.6 mg/dL (2.5-4.5); Potassium 4.2 mmol/L (3.4-5.1); Sodium 137 mmol/L (137-145); Total Protein 6.8 g/dL (6.3-8.2)
[2020-09-12 13:07] LABS: Tacrolimus 4.7 ng/mL (2.0-20.0)
== END ==
PROVIDERS: PCP Internal Medicine; Referring Provider Internal Medicine Gastroenterology; Visit Provider Internal Medicine Gastroenterology
DX: Z94.4 Liver transplant status (principal); Z48.298 Encounter for aftercare following other organ transplant; Z79.899 Other long term (current) drug therapy
CPT/HCPCS: 36415; 80048; 80076; 80197; 82977; 83735; 84100; 85025; 85610

== ENCOUNTER → 2020-10-10 08:39 | Outpatient (CLI) | payer OTHER, MEDICAID, SELFPAY ==
[2019-02-28 13:29] VITALS: BMI 27.5
[2020-10-10 09:14] LABS: Add Manual Diff / Slide Review NO; Basophils Absolute Auto 100 /uL (0-100); Basophils Percent Auto 1.3 % (0-2); Eosinophils Absolute Auto 100 /uL (0-450); Eosinophils Percent Auto 2.6 % (2-4); Hematocrit 34.5 % (36-46); Hemoglobin 11.7 g/dL (12.0-16.0); Lymphocytes Absolute Auto 1600 /uL (1100-4500); Lymphocytes Percent Auto 31.9 % (25-40); Mean Corpuscular Hemoglobin 30.5 PG (26-34); Mean Corpuscular Volume 89.9 fL (80-100); Monocytes Absolute Auto 400 /uL (0-900); Monocytes Percent Auto 7.8 % (3-14); Neutrophils Absolute Auto 2800 /uL (1500-7000); Neutrophils Percent Auto 56.4 % (50-75); Platelet Count 219 X10^3/uL (150-400); Red Blood Cell Count 3.84 X10^6/uL (4.0-5.2); Red Cell Distribution Width 13.1 % (11.6-14.8)
[2020-10-10 09:23] LABS: INR 1.2 (0.9-1.3)
[2020-10-10 09:29] LABS: Alanine Aminotransferase 24 IU/L (<35); Albumin 4.3 g/dL (3.5-5.0); Albumin Globulin Ratio 1.7 (1.0-2.8); Alkaline Phosphatase 121 U/L (38-126); Aspartate Aminotransferase 28 IU/L (14-36); BUN Creatinine Ratio 29.6 (6-22); Bilirubin Total 0.5 mg/dL (0.2-1.3); Bilirubin Unconjugated 0.3 mg/dL (0.0-1.1); Blood Urea Nitrogen 40 mg/dL (7-17); Carbon Dioxide 27 mmol/L (22-32); Chloride 103 mmol/L (98-107); Estimated Glomerular Filt Rate 42.2 mL/min (>60); Gamma Glutamyl Transpeptidase 25 U/L (12-43); Globulin 2.6 g/dL (1.7-4.1); Glucose 109 mg/dL (70-100); HEMOLYSIS < 15 (0-50); Magnesium 1.7 mg/dL (1.6-2.3); Phosphorous 4.3 mg/dL (2.5-4.5); Potassium 4.1 mmol/L (3.4-5.1); Sodium 140 mmol/L (137-145); Total Protein 6.9 g/dL (6.3-8.2)
[2020-10-11 13:10] LABS: Tacrolimus 6.3 ng/mL (2.0-20.0)
== END ==
PROVIDERS: PCP Internal Medicine; Referring Provider Internal Medicine Gastroenterology; Visit Provider Internal Medicine Gastroenterology
DX: Z94.4 Liver transplant status (principal); Z48.298 Encounter for aftercare following other organ transplant
CPT/HCPCS: 36415; 80048; 80076; 80197; 82977; 83735; 84100; 85025; 85610

== ENCOUNTER → 2020-11-12 08:18 | Outpatient (CLI) | payer OTHER, MEDICAID, SELFPAY ==
[2019-02-28 13:29] VITALS: BMI 27.5
[2020-11-12 09:51] LABS: Add Manual Diff / Slide Review NO; Basophils Absolute Auto 0 /uL (0-100); Basophils Percent Auto 0.8 % (0-2); Eosinophils Absolute Auto 200 /uL (0-450); Eosinophils Percent Auto 3.7 % (2-4); Hematocrit 35.1 % (36-46); Hemoglobin 11.9 g/dL (12.0-16.0); Lymphocytes Absolute Auto 1700 /uL (1100-4500); Lymphocytes Percent Auto 34.7 % (25-40); Mean Corpuscular Hemoglobin 30.4 PG (26-34); Mean Corpuscular Volume 89.5 fL (80-100); Monocytes Absolute Auto 400 /uL (0-900); Monocytes Percent Auto 8.2 % (3-14); Neutrophils Absolute Auto 2600 /uL (1500-7000); Neutrophils Percent Auto 52.6 % (50-75); Platelet Count 221 X10^3/uL (150-400); Red Blood Cell Count 3.92 X10^6/uL (4.0-5.2); Red Cell Distribution Width 12.6 % (11.6-14.8); White Blood Cell Count 4.9 X10^3/uL (4.5-11.0)
[2020-11-12 10:10] LABS: INR 1.2 (0.9-1.3); Prothrombin Time 13.4 SECONDS (10.1-12.7)
[2020-11-12 10:23] LABS: Alanine Aminotransferase 20 IU/L (<35); Albumin 4.6 g/dL (3.5-5.0); Alkaline Phosphatase 119 U/L (38-126); Aspartate Aminotransferase 27 IU/L (14-36); BUN Creatinine Ratio 23.7 (6-22); Bilirubin Total 0.5 mg/dL (0.2-1.3); Bilirubin Unconjugated 0.3 mg/dL (0.0-1.1); Blood Urea Nitrogen 32 mg/dL (7-17); Calcium 9.9 mg/dL (8.4-10.2); Carbon Dioxide 27 mmol/L (22-32); Chloride 100 mmol/L (98-107); Estimated Glomerular Filt Rate 42.2 mL/min (>60); Gamma Glutamyl Transpeptidase 27 U/L (12-43); Globulin 2.3 g/dL (1.7-4.1); Glucose 92 mg/dL (70-100); HEMOLYSIS < 15 (0-50); Magnesium 1.8 mg/dL (1.6-2.3); Phosphorous 4.7 mg/dL (2.5-4.5); Potassium 4.2 mmol/L (3.4-5.1); Sodium 137 mmol/L (137-145); Total Protein 6.9 g/dL (6.3-8.2)
[2020-11-13 13:15] LABS: Tacrolimus 7.3 ng/mL (2.0-20.0)
== END ==
PROVIDERS: PCP Internal Medicine; Referring Provider Internal Medicine Gastroenterology; Visit Provider Internal Medicine Gastroenterology
DX: Z94.4 Liver transplant status (principal); Z79.899 Other long term (current) drug therapy; Z48.298 Encounter for aftercare following other organ transplant
CPT/HCPCS: 36415; 80048; 80076; 80197; 82977; 83735; 84100; 85025; 85610

== ENCOUNTER → 2021-03-01 08:09 | Outpatient (CLI) | payer OTHER, MEDICAID, SELFPAY ==
[2019-02-28 13:29] VITALS: BMI 27.5
[2021-03-01 08:37] LABS: Add Manual Diff / Slide Review NO; Basophils Absolute Auto 0 /uL (0-100); Basophils Percent Auto 1.1 % (0-2); Eosinophils Absolute Auto 100 /uL (0-450); Eosinophils Percent Auto 2.5 % (2-4); Hematocrit 31.1 % (36-46); Hemoglobin 10.5 g/dL (12.0-16.0); Lymphocytes Absolute Auto 1100 /uL (1100-4500); Lymphocytes Percent Auto 28.6 % (25-40); Mean Corpuscular HGB Conc 33.9 % (30-36); Mean Corpuscular Volume 88.4 fL (80-100); Monocytes Absolute Auto 400 /uL (0-900); Monocytes Percent Auto 10.2 % (3-14); Neutrophils Absolute Auto 2200 /uL (1500-7000); Neutrophils Percent Auto 57.6 % (50-75); Platelet Count 208 X10^3/uL (150-400); Red Blood Cell Count 3.52 X10^6/uL (4.0-5.2); Red Cell Distribution Width 12.8 % (11.6-14.8); White Blood Cell Count 3.8 X10^3/uL (4.5-11.0)
[2021-03-01 08:57] LABS: Prothrombin Time 11.8 SECONDS (10.1-12.7)
[2021-03-01 09:03] LABS: Alanine Aminotransferase 14 IU/L (<35); Albumin 4.5 g/dL (3.5-5.0); Alkaline Phosphatase 126 U/L (38-126); Aspartate Aminotransferase 21 IU/L (14-36); BUN Creatinine Ratio 23.2 (6-22); Bilirubin Total 0.4 mg/dL (0.2-1.3); Bilirubin Unconjugated 0.4 mg/dL (0.0-1.1); Blood Urea Nitrogen 29 mg/dL (7-17); Calcium 9.4 mg/dL (8.4-10.2); Carbon Dioxide 29 mmol/L (22-32); Chloride 97 mmol/L (98-107); Estimated Glomerular Filt Rate 45.9 mL/min (>60); Gamma Glutamyl Transpeptidase 18 U/L (12-43); Globulin 2.2 g/dL (1.7-4.1); Glucose 111 mg/dL (70-100); HEMOLYSIS < 15 (0-50); Magnesium 1.6 mg/dL (1.6-2.3); Potassium 4.2 mmol/L (3.4-5.1); Sodium 132 mmol/L (137-145); Total Protein 6.7 g/dL (6.3-8.2)
[2021-03-02 16:08] LABS: Tacrolimus 7.5 ng/mL (2.0-20.0)
== END ==
PROVIDERS: PCP Internal Medicine; Referring Provider Internal Medicine Gastroenterology; Visit Provider Internal Medicine Gastroenterology
DX: Z94.4 Liver transplant status (principal); Z48.298 Encounter for aftercare following other organ transplant; Z79.899 Other long term (current) drug therapy
CPT/HCPCS: 36415; 80048; 80076; 80197; 82977; 83735; 84100; 85025; 85610

== ENCOUNTER → 2021-04-02 15:09 | Outpatient (CLI) | payer OTHER, MEDICAID, SELFPAY ==
[2019-02-28 13:29] VITALS: BMI 27.5
[2021-04-02 16:36] LABS: Alanine Aminotransferase 17 IU/L (<35); Albumin 4.6 g/dL (3.5-5.0); Albumin Globulin Ratio 1.9 (1.0-2.8); Alkaline Phosphatase 99 U/L (38-126); Aspartate Aminotransferase 28 IU/L (14-36); BUN Creatinine Ratio 23.1 (6-22); Bilirubin Total 0.5 mg/dL (0.2-1.3); Bilirubin Unconjugated 0.5 mg/dL (0.0-1.1); Blood Urea Nitrogen 25 mg/dL (7-17); C-Reactive Protein Quant < 0.5 mg/dL (<1.0); Calcium 9.7 mg/dL (8.4-10.2); Carbon Dioxide 27 mmol/L (22-32); Chloride 96 mmol/L (98-107); Estimated Glomerular Filt Rate 54.4 mL/min (>60); Globulin 2.4 g/dL (1.7-4.1); Glucose 114 mg/dL (70-100); HEMOLYSIS < 15 (0-50); Potassium 4.1 mmol/L (3.4-5.1); Sodium 131 mmol/L (137-145)
[2021-04-02 17:27] LABS: Erythrocyte Sedimentation Rate 33 MM/HR (0-20)
== END ==
PROVIDERS: PCP Internal Medicine; Referring Provider Internal Medicine; Visit Provider Internal Medicine
DX: R10.9 Unspecified abdominal pain (principal); D64.9 Anemia, unspecified; Z94.4 Liver transplant status
CPT/HCPCS: 36415; 80048; 80076; 85651; 86140

== ENCOUNTER → 2021-04-02 15:17 | Outpatient (CLI) | payer OTHER, MEDICAID, SELFPAY ==
[2019-02-28 13:29] VITALS: BMI 27.5
--- NOTE | 2021-04-02 15:18 | DI.RAD.S_ITS ---
PROCEDURE: XR CHEST 2V INDICATIONS: left flank pain TECHNIQUE: 2 views of the chest were acquired. COMPARISON: [facility], CR, XR CHEST 2V, 10/20/2017, 10:44. FINDINGS: Surgical changes and devices: Multiple surgical clips in the upper abdomen.. Lungs and pleura: Lungs are clear. No pleural effusions or pneumothorax. Mediastinum: Mediastinal contours are normal. Heart size is normal. Bones and chest wall: No suspicious bony abnormalities. Soft tissues appear unremarkable. IMPRESSION: No acute cardiopulmonary disease process. Dictated by: Salina Moncada MD, PhD on 04/02/2021 at 17:30 Approved by: Salina Moncada MD, PhD on 04/02/2021 at 17:30
== END ==
PROVIDERS: PCP Internal Medicine; Referring Provider Internal Medicine; Visit Provider Internal Medicine
DX: R10.9 Unspecified abdominal pain (principal); D64.9 Anemia, unspecified; Z94.4 Liver transplant status
CPT/HCPCS: 36415; 71046; 80048; 80076; 85651; 86140

== ENCOUNTER → 2021-06-15 08:08 | Outpatient (CLI) | payer OTHER, MEDICAID, SELFPAY ==
[2019-02-28 13:29] VITALS: BMI 27.5
[2021-06-15 08:39] LABS: Add Manual Diff / Slide Review NO; Basophils Absolute Auto 0 /uL (0-100); Basophils Percent Auto 1.4 % (0-2); Eosinophils Absolute Auto 100 /uL (0-450); Eosinophils Percent Auto 4.6 % (2-4); Hematocrit 31.6 % (36-46); Hemoglobin 11.2 g/dL (12.0-16.0); Lymphocytes Absolute Auto 1000 /uL (1100-4500); Lymphocytes Percent Auto 39.9 % (25-40); Mean Corpuscular HGB Conc 35.3 % (30-36); Mean Corpuscular Hemoglobin 30.3 PG (26-34); Mean Corpuscular Volume 85.8 fL (80-100); Monocytes Absolute Auto 300 /uL (0-900); Monocytes Percent Auto 12.3 % (3-14); Neutrophils Absolute Auto 1100 /uL (1500-7000); Neutrophils Percent Auto 41.8 % (50-75); Platelet Count 265 X10^3/uL (150-400); Red Blood Cell Count 3.68 X10^6/uL (4.0-5.2); Red Cell Distribution Width 13.2 % (11.6-14.8); White Blood Cell Count 2.5 X10^3/uL (4.5-11.0)
[2021-06-15 08:54] LABS: INR 1.2 (0.9-1.3); Prothrombin Time 13.5 SECONDS (10.1-12.7)
[2021-06-15 08:59] LABS: Alanine Aminotransferase 17 IU/L (<35); Albumin 4.9 g/dL (3.5-5.0); Albumin Globulin Ratio 1.8 (1.0-2.8); Alkaline Phosphatase 98 U/L (38-126); Aspartate Aminotransferase 35 IU/L (14-36); BUN Creatinine Ratio 14.9 (6-22); Bilirubin Total 0.6 mg/dL (0.2-1.3); Bilirubin Unconjugated 0.6 mg/dL (0.0-1.1); Blood Urea Nitrogen 13 mg/dL (7-17); Calcium 9.1 mg/dL (8.4-10.2); Carbon Dioxide 23 mmol/L (22-32); Chloride 91 mmol/L (98-107); Estimated Glomerular Filt Rate > 60.0 mL/min (>60); Gamma Glutamyl Transpeptidase 32 U/L (12-43); Globulin 2.8 g/dL (1.7-4.1); Glucose 109 mg/dL (70-100); HEMOLYSIS < 15 (0-50); Magnesium 1.3 mg/dL (1.6-2.3); Phosphorous 4.2 mg/dL (2.5-4.5); Potassium 4.5 mmol/L (3.4-5.1); Sodium 128 mmol/L (137-145); Total Protein 7.7 g/dL (6.3-8.2)
[2021-06-16 09:38] LABS: Tacrolimus 8.4 ng/mL (2.0-20.0)
== END ==
PROVIDERS: PCP Internal Medicine; Referring Provider Internal Medicine Gastroenterology; Visit Provider Internal Medicine Gastroenterology
DX: Z94.4 Liver transplant status (principal); Z79.899 Other long term (current) drug therapy; Z48.298 Encounter for aftercare following other organ transplant
CPT/HCPCS: 36415; 80048; 80076; 80197; 82977; 83735; 84100; 85025; 85610

== ENCOUNTER → 2021-07-01 08:10 | Outpatient (CLI) | payer OTHER, MEDICAID, SELFPAY ==
[2019-02-28 13:29] VITALS: BMI 27.5
[2021-07-01 08:54] LABS: Add Manual Diff / Slide Review NO; Basophils Absolute Auto 0 /uL (0-100); Basophils Percent Auto 1.5 % (0-2); Eosinophils Absolute Auto 100 /uL (0-450); Eosinophils Percent Auto 3.8 % (2-4); Hematocrit 30.3 % (36-46); Hemoglobin 10.4 g/dL (12.0-16.0); Lymphocytes Absolute Auto 800 /uL (1100-4500); Mean Corpuscular HGB Conc 34.2 % (30-36); Mean Corpuscular Hemoglobin 29.8 PG (26-34); Mean Corpuscular Volume 87.2 fL (80-100); Monocytes Absolute Auto 300 /uL (0-900); Monocytes Percent Auto 13.4 % (3-14); Neutrophils Absolute Auto 900 /uL (1500-7000); Neutrophils Percent Auto 41.3 % (50-75); Platelet Count 244 X10^3/uL (150-400); Red Blood Cell Count 3.48 X10^6/uL (4.0-5.2); Red Cell Distribution Width 13.7 % (11.6-14.8); White Blood Cell Count 2.1 X10^3/uL (4.5-11.0)
[2021-07-01 09:01] LABS: INR 1.1 (0.9-1.3); Prothrombin Time 12.6 SECONDS (10.1-12.7)
[2021-07-01 10:03] LABS: Alanine Aminotransferase 18 IU/L (<35); Albumin 4.4 g/dL (3.5-5.0); Alkaline Phosphatase 96 U/L (38-126); Aspartate Aminotransferase 30 IU/L (14-36); BUN Creatinine Ratio 15.9 (6-22); Bilirubin Total 0.4 mg/dL (0.2-1.3); Bilirubin Unconjugated 0.3 mg/dL (0.0-1.1); Blood Urea Nitrogen 14 mg/dL (7-17); Carbon Dioxide 24 mmol/L (22-32); Chloride 101 mmol/L (98-107); Estimated Glomerular Filt Rate > 60 mL/min (>60); Gamma Glutamyl Transpeptidase 24 U/L (12-43); Globulin 2.2 g/dL (1.7-4.1); Glucose 108 mg/dL (70-100); HEMOLYSIS < 15 (0-50); Magnesium 1.5 mg/dL (1.6-2.3); Phosphorous 4.7 mg/dL (2.5-4.5); Potassium 4.9 mmol/L (3.4-5.1); Sodium 134 mmol/L (137-145); Total Protein 6.6 g/dL (6.3-8.2)
[2021-07-01 16:51] LABS: Tacrolimus 6.5 ng/mL (2.0-20.0)
== END ==
PROVIDERS: PCP Internal Medicine; Referring Provider Internal Medicine Gastroenterology; Visit Provider Internal Medicine Gastroenterology
DX: Z48.298 Encounter for aftercare following other organ transplant (principal); Z94.4 Liver transplant status; Z79.899 Other long term (current) drug therapy
CPT/HCPCS: 36415; 80048; 80076; 80197; 82977; 83735; 84100; 85025; 85610

== ENCOUNTER 2021-07-14 13:57 | Emergency (ER) | payer OTHER, MEDICAID, SELFPAY ==
[2019-02-28 13:29] VITALS: BMI 27.5
[2021-07-14 14:02] VITALS: BP 94/61; PULSE 94; RESP 16; TEMP 36.6; O2SAT 97; BMI 25.9
[2021-07-14 14:30] LABS: Add Manual Diff / Slide Review NO; Basophils Absolute Auto 0 /uL (0-100); Basophils Percent Auto 1.2 % (0-2); Eosinophils Absolute Auto 100 /uL (0-450); Eosinophils Percent Auto 1.8 % (2-4); Hematocrit 31.5 % (36-46); Hemoglobin 10.7 g/dL (12.0-16.0); Lymphocytes Absolute Auto 900 /uL (1100-4500); Lymphocytes Percent Auto 26.6 % (25-40); Mean Corpuscular HGB Conc 34.1 % (30-36); Mean Corpuscular Hemoglobin 29.8 PG (26-34); Mean Corpuscular Volume 87.6 fL (80-100); Monocytes Absolute Auto 400 /uL (0-900); Monocytes Percent Auto 11.3 % (3-14); Neutrophils Absolute Auto 2000 /uL (1500-7000); Neutrophils Percent Auto 59.1 % (50-75); Platelet Count 244 X10^3/uL (150-400); Red Cell Distribution Width 13.6 % (11.6-14.8); White Blood Cell Count 3.3 X10^3/uL (4.5-11.0)
[2021-07-14 14:42] LABS: Alanine Aminotransferase 16 IU/L (<35); Albumin 4.7 g/dL (3.5-5.0); Albumin Globulin Ratio 1.7 (1.0-2.8); Alkaline Phosphatase 99 U/L (38-126); Aspartate Aminotransferase 31 IU/L (14-36); BUN Creatinine Ratio 11.9 (6-22); Bilirubin Total 0.9 mg/dL (0.2-1.3); Blood Urea Nitrogen 16 mg/dL (7-17); Calcium 9.1 mg/dL (8.4-10.2); Carbon Dioxide 22 mmol/L (22-32); Chloride 99 mmol/L (98-107); Estimated Glomerular Filt Rate 49 mL/min (>60); Globulin 2.7 g/dL (1.7-4.1); Glucose 105 mg/dL (70-100); HEMOLYSIS < 15 (0-50); Lipase 52 U/L (23-300); Potassium 4.2 mmol/L (3.4-5.1); Sodium 131 mmol/L (137-145); Total Protein 7.4 g/dL (6.3-8.2)
[2021-07-14 15:00] VITALS: BP 127/65; PULSE 71; RESP 17; O2SAT 97
--- NOTE | 2021-07-14 15:59 | ED_ITS ---
HPI - Female Genitourinary <Brandi Webster [facility] - Last Filed: 07/14/21 18:44> General Chief complaint: Abdominal Pain Stated complaint: Vomiting, constipation, ABD pain Time Seen by Provider: 07/14/21 15:47 Source: patient Mode of arrival: Ambulatory History of Present Illness HPI Narrative: This is a 45-year-old female with a history a liver transplant 12/01/2019 with chronic renal failure stage III, who presents to the emergency department today for 3 days of low pelvic pressure, diaphoresis at night, chills, urinary urgency poor appetite flank pain, and 1 episode of vomiting yesterday. Patient denies a ny complications from her liver transplant, her creatinine baseline is 0.88, she states that she has been in her usual state of health until the last few days and she has more fatigued than usual, without as much urine output. She states that she has had sweats at nighttime, low pelvic pressure, flank pain. She has had some urinary urgency but states that she has not had urine to void. She denies much oral intake states that she has not had an appetite, has not been drinking much because she has not been hungry. Denies any chest pain, any other abdominal pain, weakness, lightheadedness, headache, fever, diarrhea, or more vomiting. Related Data Home Medications Medication Instructions Recorded Confirmed multivitamin with minerals-folic 1 tab PO DAILY 08/14/18 04/02/21 acid 200 mcg chewable tablet (Adult Multivitamin Gummies) nortriptyline 25 mg capsule 25 mg PO BEDTIME cap 11/07/19 04/02/21 cholecalciferol (vitamin D3) 25 25 mcg PO DAILY 02/11/20 04/02/21 mcg (1,000 unit) capsule gabapentin 300 mg capsule 300 mg PO DAILY cap 02/11/20 04/02/21 mirtazapine 7.5 mg tablet 7.5 mg PO DAILY tab 02/11/20 04/02/21 acetaminophen 500 mg tablet 1,000 mg PO Q4-6H PRN tab 09/01/20 04/02/21 mycophenolate sodium 360 mg 360 mg PO BID tab 09/01/20 04/02/21 tablet,delayed release sertraline 50 mg tablet 50 mg PO BID tab 09/01/20 04/02/21 tacrolimus 0.5 mg capsule, 0.5 mg PO BID cap 09/01/20 04/02/21 immediate-release tacrolimus 1 mg capsule, 3 mg PO BID cap 09/01/20 04/02/21 immediate-release Previous Rx's Medication Instructions Recorded levetiracetam 500 mg tablet 500 mg PO BID #60 tab 10/28/19 fluticasone 500 mcg-salmeterol 50 1 inh INHALATION BID #60 each 04/01/21 mcg/dose blistr powdr for inhalation trazodone 50 mg tablet 50 mg PO BEDTIME PRN #90 tab 06/10/21 cephalexin 500 mg capsule 500 mg PO BID 5 Days #10 cap 07/14/21 ondansetron 4 mg disintegrating 4 mg PO Q8H PRN #10 tab 07/14/21 tablet phenazopyridine 100 mg tablet 100 mg PO TID PRN #7 tab 07/14/21 (Pyridium) Allergies Allergy/AdvReac Type Severity Reaction Status Date / Time aspirin AdvReac Unknown Verified 04/02/21 14:27 Review of Systems <OPAL Lee - Last Filed: 07/14/21 18:44> Review of Systems Narrative: General: denies fever, chills, malaise, sweats, fatigue Head/Neck: denies headache, neck pain, dizziness Eyes: denies visual changes, eye pain Cardio: denies chest pain, palpitations, edema Respiratory: denies dyspnea, cough, orthopnea GI: denies abdominal pain, nausea, vomiting, or diarrhea : Endorses dysuria, pelvic pressure, denies any urinary retention, hematuria, frequency or incontinence MSK: denies joint pain, muscle weakness Skin: denies rash, itching, skin lesions or other Neuro: denies numbness, tingling Patient History <OPAL Lee - Last Filed: 07/14/21 18:44> Medical History Alcoholic hepatitis Alcoholism in remission Allergic rhinitis Asthma Bipolar disorder Bruises easily Chronic migraine Chronic renal failure, stage 3a Cirrhosis Dizziness Duodenal ulcer (09/2009) Esophageal varices Esophageal varices in alcoholic cirrhosis Former smoker Gastric antral vascular ectasia (~11/2019) Gastro-esophageal reflux (12/31/10) History of UTI Major depressive disorder, recurrent, moderate (12/31/10) Seizure (~07/11/18) Seizure disorder Surgical History History of cholecystectomy Liver transplant status (12/01/19) S/P liver transplant (12/01/19) Status post endoscopy (09/2009) Family History Other Alcoholism Asthma alcohol intake frequency: other Substance Use Type: does not use Exam <OPAL Lee - Last Filed: 07/14/21 18:44> Narrative Exam Narrative: Independently reviewed vitals signs and nursing notes. General: cooperative, comfortable, in no acute distress, well developed and well groomed Head: atraumatic, symmetrical facial expressions Neck: supple, atraumatic, without lymphadenopathy. Eyes: pupils equal round and reactive, EOMI, conjunctiva normal Nose: nares patent, no rhinorrhea Mouth/Throat: uvula midline, moist mucus membranes Cardiovascular: regular rate and rhythm, no peripheral edema, warm extremities Respiratory: normal effort, able to speak in complete sentences, no audible wheezing, stridor, or rales. No retractions or tachypnea. GI: abdomen soft, nontender to palpation, nondistended, no masses, no exquisite tenderness with exam, without guarding or rebound. Pelvic pressure and pelvic tenderness to palpation, no CVA tenderness patient denies any abnormal vaginal discharge MSK: moves all extremities, ambulatory w/steady gait, neurovascularly intact, no weakness Skin: brisk capillary refill, no rash, no erythema Neuro: normal speech and cognition, A&O x3, normal tone Psych: mental status is grossly normal, congruent mood, normal affect, pleasant and cooperative Initial Vital Signs Initial Vital Signs: Vital Signs Temperature 97.8 F 07/14/21 14:02 Pulse Rate 94 H 07/14/21 14:02 Respiratory Rate 16 07/14/21 14:02 Blood Pressure 94/61 07/14/21 14:02 Pulse Oximetry 97 07/14/21 14:02 <Brandi Hu DO - Last Filed: 07/15/21 20:20> Initial Vital Signs Initial Vital Signs: Vital Signs Temperature 97.8 F 07/14/21 14:02 Pulse Rate 94 H 07/14/21 14:02 Respiratory Rate 16 07/14/21 14:02 Blood Pressure 94/61 07/14/21 14:02 Pulse Oximetry 97 07/14/21 14:02 Course <OPAL Lee - Last Filed: 07/14/21 18:44> Orders Ordered: Discontinued Medications Acetaminophen (Acetaminophen 325 Mg Tablet) 650 mg PO NOW ONE Stop: 07/14/21 16:15 Last Admin: 07/14/21 18:12 Dose: 650 mg Documented by: ELVIA Cephalexin HCl (Cephalexin 250 Mg Capsule) 500 mg PO NOW ONE Stop: 07/14/21 18:17 Last Admin: 07/14/21 18:35 Dose: Not Given Documented by: ELVIA Cephalexin HCl (Cephalexin 250 Mg Capsule) 500 mg PO NOW ONE Stop: 07/14/21 18:26 Last Admin: 07/14/21 18:36 Dose: 500 mg Documented by: ELVIA Sodium Chloride (Normal Saline 0.9%) 1,000 mls @ 1,000 mls/hr IV BOLUS ONE Stop: 07/14/21 16:48 Last Infusion: 07/14/21 18:36 Dose: 0 mls/hr Documented by: Admin: 07/14/21 16:07 Dose: 1,000 mls/hr Documented by: ELVIA Ondansetron HCl (Ondansetron 4 Mg/2 Ml Inj) 4 mg IV NOW ONE Stop: 07/14/21 15:51 Last Admin: 07/14/21 16:07 Dose: 4 mg Documented by: ELVIA Phenazopyridine HCl (Phenazopyridine 100 Mg Tablet) 100 mg PO NOW ONE Stop: 07/14/21 16:15 Last Admin: 07/14/21 18:12 Dose: 100 mg Documented by: ELVIA Vital Signs Vital signs: Vital Signs - 8 hr 07/14/21 14:02 Temperature 97.8 F Pulse Rate 94 H Respiratory Rate 16 Blood Pressure 94/61 Pulse Oximetry 97 <Brandi Hu DO - Last Filed: 07/15/21 20:20> Orders Ordered: Discontinued Medications Acetaminophen (Acetaminophen 325 Mg Tablet) 650 mg PO NOW ONE Stop: 07/14/21 16:15 Last Admin: 07/14/21 18:12 Dose: 650 mg Documented by: ELVIA Cephalexin HCl (Cephalexin 250 Mg Capsule) 500 mg PO NOW ONE Stop: 07/14/21 18:17 Last Admin: 07/14/21 18:35 Dose: Not Given Documented by: ELVIA Cephalexin HCl (Cephalexin 250 Mg Capsule) 500 mg PO NOW ONE Stop: 07/14/21 18:26 Last Admin: 07/14/21 18:36 Dose: 500 mg Documented by: ELVIA Sodium Chloride (Normal Saline 0.9%) 1,000 mls @ 1,000 mls/hr IV BOLUS ONE Stop: 07/14/21 16:48 Last Infusion: 07/14/21 18:36 Dose: 0 mls/hr Documented by: Admin: 07/14/21 16:07 Dose: 1,000 mls/hr Documented by: ELVIA Ondansetron HCl (Ondansetron 4 Mg/2 Ml Inj) 4 mg IV NOW ONE Stop: 07/14/21 15:51 Last Admin: 07/14/21 16:07 Dose: 4 mg Documented by: ELVIA Phenazopyridine HCl (Phenazopyridine 100 Mg Tablet) 100 mg PO NOW ONE Stop: 07/14/21 16:15 Last Admin: 07/14/21 18:12 Dose: 100 mg Documented by: ELVIA Vital Signs Vital signs: Vital Signs - 8 hr 07/14/21 14:02 Temperature 97.8 F Pulse Rate 94 H Respiratory Rate 16 Blood Pressure 94/61 Pulse Oximetry 97 MDM - Female Genitourinary <OPAL Lee - Last Filed: 07/14/21 18:44> Lab Data Result diagrams: 07/14/21 14:15 07/14/21 14:15 Labs: Lab Results 07/14/21 07/14/21 07/14/21 Range/Units 14:15 14:15 14:15 WBC 3.3 L (4.5-11.0) X10^3/uL RBC 3.60 L (4.0-5.2) X10^6/uL Hgb 10.7 L (12.0-16.0) g/dL Hct 31.5 L (36-46) % MCV 87.6 (80-100) fL MCH 29.8 (26-34) PG MCHC 34.1 (30-36) % RDW 13.6 (11.6-14.8) % Plt Count 244 (150-400) X10^3/uL Neut % (Auto) 59.1 (50-75) % Lymph % (Auto) 26.6 (25-40) % [place] % (Auto) 11.3 (3-14) % Eos % (Auto) 1.8 L (2-4) % Baso % (Auto) 1.2 (0-2) % Neut # (Auto) 2000 (8024-7937) /uL Lymph # (Auto) 900 L (1424-9205) /uL [place] # (Auto) 400 (0-900) /uL Eos # (Auto) 100 (0-450) /uL Baso # (Auto) 0 (0-100) /uL Sodium 131 L (137-145) mmol/L Potassium 4.2 (3.4-5.1) mmol/L Chloride 99 (98-107) mmol/L Carbon Dioxide 22 (22-32) mmol/L BUN 16 (7-17) mg/dL Creatinine 1.34 H (0.52-1.04) mg/dL Estimated GFR 49 L (>60) mL/min BUN/Creatinine Ratio 11.9 (6-22) Glucose 105 H (70-100) mg/dL Calcium 9.1 (8.4-10.2) mg/dL Magnesium 1.7 (1.6-2.3) mg/dL Total Bilirubin 0.9 (0.2-1.3) mg/dL AST 31 (14-36) IU/L ALT 16 (<35) IU/L Alkaline Phosphatase 99 (38-126) U/L Total Protein 7.4 (6.3-8.2) g/dL Albumin 4.7 (3.5-5.0) g/dL Globulin 2.7 (1.7-4.1) g/dL Albumin/Globulin Ratio 1.7 (1.0-2.8) Lipase 52 (23-300) U/L Urine Color Urine Appearance Urine pH (4.5-8.0) Ur Specific [place] (1.000-1.035) Urine Protein (Negative) Urine Glucose (UA) (Negative) g/dL Urine Ketones (NEGATIVE) Urine Occult Blood (Negative) Urine Nitrate (Negative) Urine Bilirubin (NEGATIVE) Ur Bilirubin Confirm (Negative) Urine Urobilinogen (0.2) E.U./dL Ur Leukocyte Esterase (NEGATIVE) Urine RBC (0-5/HPF) Urine WBC (0-5/HPF) Ur Squamous Epith Cells (0-5/HPF) Amorphous Sediment Urine Bacteria (None) Urine Mucus (Negative) Ur Culture Indicated? 07/14/21 Range/Units 17:42 WBC (4.5-11.0) X10^3/uL RBC (4.0-5.2) X10^6/uL Hgb (12.0-16.0) g/dL Hct (36-46) % MCV (80-100) fL MCH (26-34) PG MCHC (30-36) % RDW (11.6-14.8) % Plt Count (150-400) X10^3/uL Neut % (Auto) (50-75) % Lymph % (Auto) (25-40) % [place] % (Auto) (3-14) % Eos % (Auto) (2-4) % Baso % (Auto) (0-2) % Neut # (Auto) (5322-8668) /uL Lymph # (Auto) (1488-2981) /uL [place] # (Auto) (0-900) /uL Eos # (Auto) (0-450) /uL Baso # (Auto) (0-100) /uL Sodium (137-145) mmol/L Potassium (3.4-5.1) mmol/L Chloride (98-107) mmol/L Carbon Dioxide (22-32) mmol/L BUN (7-17) mg/dL Creatinine (0.52-1.04) mg/dL Estimated GFR (>60) mL/min BUN/Creatinine Ratio (6-22) Glucose (70-100) mg/dL Calcium (8.4-10.2) mg/dL Magnesium (1.6-2.3) mg/dL Total Bilirubin (0.2-1.3) mg/dL AST (14-36) IU/L ALT (<35) IU/L Alkaline Phosphatase (38-126) U/L Total Protein (6.3-8.2) g/dL Albumin (3.5-5.0) g/dL Globulin (1.7-4.1) g/dL Albumin/Globulin Ratio (1.0-2.8) Lipase (23-300) U/L Urine Color Yellow Urine Appearance Clear Urine pH 5.0 (4.5-8.0) Ur Specific [place] 1.025 (1.000-1.035) Urine Protein Trace H (Negative) Urine Glucose (UA) Negative (Negative) g/dL Urine Ketones Trace H (NEGATIVE) Urine Occult Blood Negative (Negative) Urine Nitrate Negative (Negative) Urine Bilirubin 1+ H (NEGATIVE) Ur Bilirubin Confirm Negative (Negative) Urine Urobilinogen 0.2 (0.2) E.U./dL Ur Leukocyte Esterase Trace H (NEGATIVE) Urine RBC None seen (0-5/HPF) Urine WBC 1-5/hpf (0-5/HPF) Ur Squamous Epith Cells 0-1 /hpf (0-5/HPF) Amorphous Sediment 1+ Urine Bacteria Many (>30) H (None) Urine Mucus 1+ H (Negative) Ur Culture Indicated? Specimen cultured MDM Narrative Medical decision making narrative: This is a 45-year-old female with a history of a liver transplant 12/01/2019 and chronic immunosuppression, CKD with a baseline creatinine of 1.0, GERD and allergic rhinitis who presents to the emergency department complaining of pelvic pressure, fatigue, nausea, emesis 2 days ago x1, and complains of dark urine without any hematuria. Patient states that she has been healthy since her transplant without any illnesses. She does not have a history of UTIs, she has a positive urine culture from grew out Klebsiella pneumoniae and was susceptible to cephalosporins. Patient denies any antibiotic allergies. Lab work revealed a white blood cell count of 3.3, patient is on tactile MS, creatinine of 1.3, GFR of 49 prior to 1 L of normal saline for dehydration. Patient was nauseated on arrival and was not able to tolerate p.o. fluids. No gross electrolyte ab normalities, no elevation in liver enzymes or lipase, urine shows trace of protein, ketones, bilirubin, leukocyte esterase with many bacteria. Urine culture is pending, patient was treated with Pyridium for bladder spasm, cephalexin 500 mg b.i.d. for 5 days. She is given her 1st dose in the emergency department, she tolerated this well, she was able to tolerate p.o. fluids. She is given strict return precautions for any worsening of her symptoms, we will call her if her urine culture is positive for anything not covered on her antibiotic. No peritoneal signs on abdominal exam. Patient remains p.o. tolerant. Serial abdominal exam without increase in abdominal pain. Given history and exam, low suspicion for acute abdominal process, such as acute cholecystitis, pancreatitis, perforated viscus, atypical appendicitis, colitis, diverticulitis or torsion. Extensive conversation about ER return precautions and need for close follow-up. Patient is appropriate and amenable to discharge home. Vital signs are stable on repeat examination is unremarkable. Patient has been informed of results. Patient has been given strict return to ER precautions for any new or worsening symptoms. Patient understands to follow up closely with outpatient providers as instructed. Patient understands plan and agrees to discharge home. All questions and concerns answered at this time. <Brandi Hu, - Last Filed: 07/15/21 20:20> Lab Data Labs: Lab Results 07/14/21 07/14/21 07/14/21 Range/Units 14:15 14:15 14:15 WBC 3.3 L (4.5-11.0) X10^3/uL RBC 3.60 L (4.0-5.2) X10^6/uL Hgb 10.7 L (12.0-16.0) g/dL Hct 31.5 L (36-46) % MCV 87.6 (80-100) fL MCH 29.8 (26-34) PG MCHC 34.1 (30-36) % RDW 13.6 (11.6-14.8) % Plt Count 244 (150-400) X10^3/uL Neut % (Auto) 59.1 (50-75) % Lymph % (Auto) 26.6 (25-40) % [place] % (Auto) 11.3 (3-14) % Eos % (Auto) 1.8 L (2-4) % Baso % (Auto) 1.2 (0-2) % Neut # (Auto) 2000 (9185-9939) /uL Lymph # (Auto) 900 L (4700-6584) /uL [place] # (Auto) 400 (0-900) /uL Eos # (Auto) 100 (0-450) /uL Baso # (Auto) 0 (0-100) /uL Sodium 131 L (137-145) mmol/L Potassium 4.2 (3.4-5.1) mmol/L Chloride 99 (98-107) mmol/L Carbon Dioxide 22 (22-32) mmol/L BUN 16 (7-17) mg/dL Creatinine 1.34 H (0.52-1.04) mg/dL Estimated GFR 49 L (>60) mL/min BUN/Creatinine Ratio 11.9 (6-22) Glucose 105 H (70-100) mg/dL Calcium 9.1 (8.4-10.2) mg/dL Magnesium 1.7 (1.6-2.3) mg/dL Total Bilirubin 0.9 (0.2-1.3) mg/dL AST 31 (14-36) IU/L ALT 16 (<35) IU/L Alkaline Phosphatase 99 (38-126) U/L Total Protein 7.4 (6.3-8.2) g/dL Albumin 4.7 (3.5-5.0) g/dL Globulin 2.7 (1.7-4.1) g/dL Albumin/Globulin Ratio 1.7 (1.0-2.8) Lipase 52 (23-300) U/L Urine Color Urine Appearance Urine pH (4.5-8.0) Ur Specific [place] (1.000-1.035) Urine Protein (Negative) Urine Glucose (UA) (Negative) g/dL Urine Ketones (NEGATIVE) Urine Occult Blood (Negative) Urine Nitrate (Negative) Urine Bilirubin (NEGATIVE) Ur Bilirubin Confirm (Negative) Urine Urobilinogen (0.2) E.U./dL Ur Leukocyte Esterase (NEGATIVE) Urine RBC (0-5/HPF) Urine WBC (0-5/HPF) Ur Squamous Epith Cells (0-5/HPF) Amorphous Sediment Urine Bacteria (None) Urine Mucus (Negative) Ur Culture Indicated? 07/14/21 Range/Units 17:42 WBC (4.5-11.0) X10^3/uL RBC (4.0-5.2) X10^6/uL Hgb (12.0-16.0) g/dL Hct (36-46) % MCV (80-100) fL MCH (26-34) PG MCHC (30-36) % RDW (11.6-14.8) % Plt Count (150-400) X10^3/uL Neut % (Auto) (50-75) % Lymph % (Auto) (25-40) % [place] % (Auto) (3-14) % Eos % (Auto) (2-4) % Baso % (Auto) (0-2) % Neut # (Auto) (0356-3199) /uL Lymph # (Auto) (7650-7203) /uL [place] # (Auto) (0-900) /uL Eos # (Auto) (0-450) /uL Baso # (Auto) (0-100) /uL Sodium (137-145) mmol/L Potassium (3.4-5.1) mmol/L Chloride (98-107) mmol/L Carbon Dioxide (22-32) mmol/L BUN (7-17) mg/dL Creatinine (0.52-1.04) mg/dL Estimated GFR (>60) mL/min BUN/Creatinine Ratio (6-22) Glucose (70-100) mg/dL Calcium (8.4-10.2) mg/dL Magnesium (1.6-2.3) mg/dL Total Bilirubin (0.2-1.3) mg/dL AST (14-36) IU/L ALT (<35) IU/L Alkaline Phosphatase (38-126) U/L Total Protein (6.3-8.2) g/dL Albumin (3.5-5.0) g/dL Globulin (1.7-4.1) g/dL Albumin/Globulin Ratio (1.0-2.8) Lipase (23-300) U/L Urine Color Yellow Urine Appearance Clear Urine pH 5.0 (4.5-8.0) Ur Specific [place] 1.025 (1.000-1.035) Urine Protein Trace H (Negative) Urine Glucose (UA) Negative (Negative) g/dL Urine Ketones Trace H (NEGATIVE) Urine Occult Blood Negative (Negative) Urine Nitrate Negative (Negative) Urine Bilirubin 1+ H (NEGATIVE) Ur Bilirubin Confirm Negative (Negative) Urine Urobilinogen 0.2 (0.2) E.U./dL Ur Leukocyte Esterase Trace H (NEGATIVE) Urine RBC None seen (0-5/HPF) Urine WBC 1-5/hpf (0-5/HPF) Ur Squamous Epith Cells 0-1 /hpf (0-5/HPF) Amorphous Sediment 1+ Urine Bacteria Many (>30) H (None) Urine Mucus 1+ H (Negative) Ur Culture Indicated? Specimen cultured Discharge Plan Departure Patient Disposition: Home Clinical Impression: Immunosuppressed status UTI (urinary tract infection) Qualifiers: Urinary tract infection type: acute cystitis Hematuria presence: without hematuria Qualified Code(s): N30.00 - Acute cystitis without hematuria Instructions: DI for Urinary Tract Infection (UTI) Activity Restrictions/Additional Instructions: *You have been diagnosed with a bladder infection. This is most likely a simple bladder infection from E coli which will get better with cephalexin, however because you have a special history and are immunosuppressed, if you start getting any worse at all, please return to the emergency department for another evaluation and IV antibiotics. One of your urine cultures previously grew out Klebsiella which is most likely related to your hospitalization. This is typically a hospital-acquired infection, and so we are starting with cephalexin, if you get worse, please come in and we will treat you for a more aggressive infection. You can use the Pyridium as needed for bladder spasms, take 650 mg of Tylenol every 6 hours as needed for pain, please stay hydrated with plenty of clear fluids. Please schedule follow-up with Dr. Oakley if you are able to, and do not hesitate to return to the ER for any worsening of your symptoms. Thank you for trusting us with your care, and for your patience, I hope you feel better soon. *What to do: *Please continue to take your regular medications as directed. [x ] New medication prescriptions sent to your pharmacy: [[facility]] [ ] New medication written as a paper prescription [ ] No new medications given Likely a standard *Please follow up with your primary care provider in 2-3 days, call for an appointment. Let them know you were seen in the Emergency Department and that we asked that you be seen for follow-up. We will electronically transmit a record o f today's note if your PCP is in our system *If you do not have a primary care provider please contact [phone] to establish care with one of the [facility] primary care providers. *Return to Emergency Department if you should have any new, worsening or concerning symptoms, such as [fever greater than 101F, chills, worsening pain, persistent vomiting or other bothersome symptoms] Prescriptions: New cephalexin 500 mg capsule 500 mg PO BID 5 Days Qty: 10 0RF phenazopyridine [Pyridium] 100 mg tablet 100 mg PO TID PRN (Reason: pain) Qty: 7 0RF ondansetron 4 mg tablet,disintegrating 4 mg PO Q8H PRN (Reason: nausea and vomiting) Qty: 10 0RF No Action levetiracetam 500 mg tablet 500 mg PO BID Qty: 60 8RF fluticasone propion-salmeterol 500-50 mcg/dose blister with device 1 inh INHALATION BID Qty: 60 3RF trazodone 50 mg tablet 50 mg PO BEDTIME PRN (Reason: insomnia) Qty: 90 3RF mirtazapine 7.5 mg tablet 7.5 mg PO DAILY 0RF cholecalciferol (vitamin D3) 25 mcg (1,000 unit) capsule 25 mcg PO DAILY 0RF gabapentin 300 mg capsule 300 mg PO DAILY 0RF mycophenolate sodium 360 mg tablet,delayed release (DR/EC) 360 mg PO BID 0RF sertraline 50 mg tablet 50 mg PO BID 0RF tacrolimus 0.5 mg capsule 0.5 mg PO BID 0RF tacrolimus 1 mg capsule 3 mg PO BID 0RF acetaminophen 500 mg tablet 1,000 mg PO Q4-6H PRN (Reason: fever or pain) 0RF nortriptyline 25 mg capsule 25 mg PO BEDTIME 0RF Adult Multivitamin Gummies 200 mcg Tablet,Chewable 1 tab PO DAILY 0RF Referrals: Nahum Oakley MD [Primary Care Provider] - <Brandi Hu DO - Last Filed: 07/15/21 20:20> Cosign ED Attending Cosignature Attestation: I was immediately available in the department for consultation. Documentation has been reviewed. I agree with assessment and plan.
[2021-07-14] MEDS: SODIUM CHLORIDE 0.9% 1,000 ML 1000 ML IV (16:07)
[2021-07-14] MEDS: ONDANSETRON 4 MG/2 ML INJ IV (16:07)
[2021-07-14 17:05] LABS: Magnesium 1.7 mg/dL (1.6-2.3)
[2021-07-14 17:49] LABS: Appearance Urine UA CLEAR; Bilirubin Urine UA 1+ (NEGATIVE); Color Urine UA YELLOW; Glucose Urine UA NEGATIVE (Negative); Ketones Urine UA TRACE (NEGATIVE); Leukocyte Esterase Urine UA TRACE (NEGATIVE); Nitrite Urine UA NEGATIVE (Negative); Occult Blood Urine UA NEGATIVE (Negative); Protein Urine UA TRACE (Negative); Specific Gravity Urine UA 1.025 (1.000-1.035); Urobilinogen Urine UA 0.2 E.U./dL (0.2)
[2021-07-14 17:59] LABS: Amorphous Sediment Urine 1+; Bacteria Urine Many (>30); Culture Indicated Urine Specimen Cultured; Ictotest Urine Negative (Negative); Mucus Urine 1+ (Negative); RBC Urine None Seen (0-5/HPF); Squamous Epithelial Cell Urine 0-1 /HPF (0-5/HPF); WBC Urine 1-5/HPF (0-5/HPF)
[2021-07-14] MEDS: PHENAZOPYRIDINE 100 MG TABLET PO (18:12)
[2021-07-14] MEDS: ACETAMINOPHEN 325 MG TABLET 650 MG PO (18:12)
[2021-07-14] MEDS: cephALEXin 250 MG CAPSULE 500 MG PO (18:36)
[2021-07-14 18:46] VITALS: BP 117/87; PULSE 77; RESP 18; O2SAT 99
== END 2021-07-14 18:50 | disposition home or self-care (01) ==
PROVIDERS: Emergency Medicine; Emergency Provider Nurse Practitioner Critical Care Medicine; PCP Internal Medicine
DX: N30.00 Acute cystitis without hematuria (principal); D84.9 Immunodeficiency, unspecified; Z94.4 Liver transplant status
CPT/HCPCS: 36415; 80053; 81001; 83690; 83735; 85025; 87077; 87086; 87186; 93005; 96361; 96374; 99284; J2405

== ENCOUNTER → 2021-08-19 08:23 | Outpatient (CLI) | payer OTHER, MEDICAID, SELFPAY ==
[2019-02-28 13:29] VITALS: BMI 27.5
[2021-08-19 09:45] LABS: Add Manual Diff / Slide Review NO; Basophils Absolute Auto 0 /uL (0-100); Basophils Percent Auto 0.8 % (0-2); Eosinophils Absolute Auto 100 /uL (0-450); Eosinophils Percent Auto 4.1 % (2-4); Hematocrit 29.6 % (36-46); Hemoglobin 10.5 g/dL (12.0-16.0); Lymphocytes Absolute Auto 900 /uL (1100-4500); Lymphocytes Percent Auto 43.8 % (25-40); Mean Corpuscular HGB Conc 35.5 % (30-36); Mean Corpuscular Hemoglobin 30.1 PG (26-34); Mean Corpuscular Volume 84.5 fL (80-100); Monocytes Absolute Auto 300 /uL (0-900); Monocytes Percent Auto 13.7 % (3-14); Neutrophils Absolute Auto 700 /uL (1500-7000); Neutrophils Percent Auto 37.6 % (50-75); Platelet Count 188 X10^3/uL (150-400); Red Blood Cell Count 3.51 X10^6/uL (4.0-5.2); Red Cell Distribution Width 13.3 % (11.6-14.8)
[2021-08-19 09:58] LABS: INR 1.2 (0.9-1.3); Prothrombin Time 12.9 SECONDS (10.1-12.7)
[2021-08-19 10:00] LABS: Alanine Aminotransferase 20 IU/L (<35); Albumin 4.3 g/dL (3.5-5.0); Albumin Globulin Ratio 1.9 (1.0-2.8); Alkaline Phosphatase 92 U/L (38-126); Aspartate Aminotransferase 32 IU/L (14-36); BUN Creatinine Ratio 18.9 (6-22); Bilirubin Total 0.6 mg/dL (0.2-1.3); Bilirubin Unconjugated 0.4 mg/dL (0.0-1.1); Blood Urea Nitrogen 17 mg/dL (7-17); Carbon Dioxide 26 mmol/L (22-32); Chloride 98 mmol/L (98-107); Estimated Glomerular Filt Rate > 60 mL/min (>60); Gamma Glutamyl Transpeptidase 20 U/L (12-43); Globulin 2.3 g/dL (1.7-4.1); Glucose 93 mg/dL (70-100); HEMOLYSIS < 15 (0-50); Magnesium 1.7 mg/dL (1.6-2.3); Phosphorous 4.9 mg/dL (2.5-4.5); Potassium 4.7 mmol/L (3.4-5.1); Sodium 131 mmol/L (137-145); Total Protein 6.6 g/dL (6.3-8.2)
== END ==
PROVIDERS: PCP Internal Medicine; Referring Provider Internal Medicine Gastroenterology; Visit Provider Internal Medicine Gastroenterology
DX: Z94.4 Liver transplant status (principal); Z79.899 Other long term (current) drug therapy; Z48.298 Encounter for aftercare following other organ transplant
CPT/HCPCS: 36415; 80048; 80076; 80197; 82977; 83735; 84100; 85025; 85610

== ENCOUNTER → 2021-10-18 16:17 | Outpatient (CLI) | payer OTHER, MEDICAID, SELFPAY ==
[2019-02-28 13:29] VITALS: BMI 27.5
[2021-10-18 18:41] LABS: Appearance Urine UA Slightly Cloudy; Bacteria Urine Moderate (10-30); Color Urine UA Orange; Culture Indicated Urine Specimen Cultured; RBC Urine 0-1/HPF (0-5/HPF); Squamous Epithelial Cell Urine 0-1 /HPF (0-5/HPF); WBC Urine 10-30/HPF (0-5/HPF)
== END ==
PROVIDERS: PCP Internal Medicine; Referring Provider Internal Medicine; Visit Provider Internal Medicine
DX: R30.0 Dysuria (principal)
CPT/HCPCS: 81001; 87077; 87086; 87186

== ENCOUNTER → 2021-10-28 08:25 | Outpatient (CLI) | payer OTHER, MEDICAID, SELFPAY ==
[2019-02-28 13:29] VITALS: BMI 27.5
[2021-10-28 11:18] LABS: Add Manual Diff / Slide Review NO; Basophils Absolute Auto 100 /uL (0-100); Eosinophils Absolute Auto 100 /uL (0-450); Eosinophils Percent Auto 1.4 % (2-4); Hematocrit 31.7 % (36-46); Hemoglobin 11.2 g/dL (12.0-16.0); Lymphocytes Absolute Auto 1400 /uL (1100-4500); Mean Corpuscular HGB Conc 35.3 % (30-36); Mean Corpuscular Hemoglobin 29.7 PG (26-34); Mean Corpuscular Volume 83.9 fL (80-100); Monocytes Absolute Auto 400 /uL (0-900); Monocytes Percent Auto 7.5 % (3-14); Neutrophils Absolute Auto 4000 /uL (1500-7000); Neutrophils Percent Auto 67.1 % (50-75); Platelet Count 329 X10^3/uL (150-400); Red Blood Cell Count 3.78 X10^6/uL (4.0-5.2); Red Cell Distribution Width 14.1 % (11.6-14.8)
[2021-10-28 11:38] LABS: INR 1.2 (0.9-1.3)
[2021-10-28 11:46] LABS: Chloride 95 mmol/L (98-107); HEMOLYSIS < 15 (0-50)
[2021-10-28 11:48] LABS: Alanine Aminotransferase 16 IU/L (<35); Albumin 4.2 g/dL (3.5-5.0); Albumin Globulin Ratio 1.8 (1.0-2.8); Alkaline Phosphatase 86 U/L (38-126); Aspartate Aminotransferase 24 IU/L (14-36); Bilirubin Total 0.4 mg/dL (0.2-1.3); Bilirubin Unconjugated 0.3 mg/dL (0.0-1.1); Blood Urea Nitrogen 9 mg/dL (7-17); Carbon Dioxide 22 mmol/L (22-32); Estimated Glomerular Filt Rate > 60 mL/min (>60); Gamma Glutamyl Transpeptidase 27 U/L (12-43); Globulin 2.4 g/dL (1.7-4.1); Glucose 100 mg/dL (70-100); Magnesium 1.5 mg/dL (1.6-2.3); Phosphorous 4.4 mg/dL (2.5-4.5); Sodium 127 mmol/L (137-145); Total Protein 6.6 g/dL (6.3-8.2)
[2021-10-29 11:05] LABS: Tacrolimus 6.8 ng/mL (2.0-20.0)
== END ==
PROVIDERS: PCP Internal Medicine; Referring Provider Internal Medicine Gastroenterology; Visit Provider Internal Medicine Gastroenterology
DX: Z48.298 Encounter for aftercare following other organ transplant (principal); Z94.4 Liver transplant status; Z79.899 Other long term (current) drug therapy
CPT/HCPCS: 36415; 80048; 80076; 80197; 82977; 83735; 84100; 85025; 85610

== ENCOUNTER → 2021-12-08 12:29 | Outpatient (CLI) | payer OTHER, MEDICAID, SELFPAY ==
[2019-02-28 13:29] VITALS: BMI 27.5
[2021-12-08 13:05] LABS: Appearance Urine UA CLEAR; Bilirubin Urine UA NEGATIVE (NEGATIVE); Color Urine UA YELLOW; Glucose Urine UA NEGATIVE (Negative); Ketones Urine UA NEGATIVE (NEGATIVE); Leukocyte Esterase Urine UA NEGATIVE (NEGATIVE); Nitrite Urine UA NEGATIVE (Negative); Occult Blood Urine UA NEGATIVE (Negative); Protein Urine UA NEGATIVE (Negative); Specific Gravity Urine UA <=1.005 (1.000-1.035); Urobilinogen Urine UA 0.2 E.U./dL (0.2)
[2021-12-08 13:16] LABS: Bacteria Urine None Seen; Culture Indicated Urine Cult Not Indicated; RBC Urine None Seen (0-5/HPF); Urine Comments Microscopic Normal; WBC Urine None Seen (0-5/HPF)
== END ==
PROVIDERS: PCP Internal Medicine; Referring Provider Internal Medicine; Visit Provider Internal Medicine
DX: N30.00 Acute cystitis without hematuria (principal); R35.0 Frequency of micturition
CPT/HCPCS: 81001

== ENCOUNTER → 2021-12-20 08:13 | Outpatient (CLI) | payer OTHER, MEDICAID, SELFPAY ==
[2019-02-28 13:29] VITALS: BMI 27.5
[2021-12-20 09:15] LABS: Add Manual Diff / Slide Review NO; Basophils Absolute Auto 0 /uL (0-100); Basophils Percent Auto 0.9 % (0-2); Eosinophils Absolute Auto 100 /uL (0-450); Eosinophils Percent Auto 1.9 % (2-4); Hematocrit 31.5 % (36-46); Hemoglobin 10.7 g/dL (12.0-16.0); Lymphocytes Absolute Auto 1100 /uL (1100-4500); Lymphocytes Percent Auto 29.4 % (25-40); Mean Corpuscular HGB Conc 33.9 % (30-36); Mean Corpuscular Hemoglobin 29.4 PG (26-34); Mean Corpuscular Volume 86.9 fL (80-100); Monocytes Absolute Auto 300 /uL (0-900); Monocytes Percent Auto 8.9 % (3-14); Neutrophils Absolute Auto 2300 /uL (1500-7000); Neutrophils Percent Auto 58.9 % (50-75); Platelet Count 228 X10^3/uL (150-400); Red Blood Cell Count 3.62 X10^6/uL (4.0-5.2); Red Cell Distribution Width 13.6 % (11.6-14.8); White Blood Cell Count 3.9 X10^3/uL (4.5-11.0)
[2021-12-20 09:38] LABS: Alanine Aminotransferase 24 IU/L (<35); Albumin 4.2 g/dL (3.5-5.0); Albumin Globulin Ratio 1.8 (1.0-2.8); Alkaline Phosphatase 70 U/L (38-126); Aspartate Aminotransferase 24 IU/L (14-36); BUN Creatinine Ratio 16.3 (6-22); Bilirubin Total 0.4 mg/dL (0.2-1.3); Bilirubin Unconjugated 0.3 mg/dL (0.0-1.1); Blood Urea Nitrogen 15 mg/dL (7-17); Calcium 9.3 mg/dL (8.4-10.2); Carbon Dioxide 24 mmol/L (22-32); Chloride 100 mmol/L (98-107); Cholesterol 229 mg/dL (140-199); Estimated Glomerular Filt Rate > 60 mL/min (>60); Gamma Glutamyl Transpeptidase 18 U/L (12-43); Globulin 2.4 g/dL (1.7-4.1); Glucose 102 mg/dL (70-100); HDL Cholesterol 63 mg/dL (40-60); HEMOLYSIS < 15 (0-50); LDL Cholesterol Calculated 151 mg/dL (<100); Magnesium 1.3 mg/dL (1.6-2.3); Phosphorous 4.7 mg/dL (2.5-4.5); Potassium 4.7 mmol/L (3.4-5.1); Sodium 134 mmol/L (137-145); Total Protein 6.6 g/dL (6.3-8.2); Triglycerides 73 mg/dL (35-150)
[2021-12-20 09:52] LABS: INR 1.2 (0.9-1.3); Prothrombin Time 13.3 SECONDS (10.1-12.7)
[2021-12-21 09:48] LABS: Tacrolimus 8.6 ng/mL (2.0-20.0)
== END ==
PROVIDERS: PCP Internal Medicine; Referring Provider Internal Medicine Gastroenterology; Visit Provider Internal Medicine Gastroenterology
DX: Z48.298 Encounter for aftercare following other organ transplant (principal); Z94.4 Liver transplant status; Z79.899 Other long term (current) drug therapy
CPT/HCPCS: 36415; 80048; 80061; 80076; 80197; 82977; 83735; 84100; 85025; 85610

== ENCOUNTER → 2021-12-21 10:33 | Outpatient (CLI) | payer OTHER, MEDICAID, SELFPAY ==
[2019-02-28 13:29] VITALS: BMI 27.5
[2021-12-24 12:22] LABS: M-Spike % Not Observed % (Not Observed); Protein, Total, 24 hr urine <108 mg/24 hr (30-150); Total Urine Protein < 4.0 mg/dL (Not Estab.)
== END ==
PROVIDERS: PCP Internal Medicine; Referring Provider Internal Medicine Gastroenterology; Visit Provider Internal Medicine Gastroenterology
DX: Z94.4 Liver transplant status (principal); Z48.298 Encounter for aftercare following other organ transplant; Z79.899 Other long term (current) drug therapy
CPT/HCPCS: 84156; 84166

== ENCOUNTER → 2022-01-04 09:52 | Outpatient (CLI) | payer OTHER, MEDICAID, SELFPAY ==
[2019-02-28 13:29] VITALS: BMI 27.5
[2022-01-04 13:18] LABS: Estimated Glomerular Filt Rate > 60 mL/min (>60)
[2022-01-04 13:20] LABS: Creatinine, Serum (CRCL) 0.85 mg/dL (0.52-1.04)
[2022-01-04 15:32] LABS: Collection Time Urine 24 Hours; Creat Clearance, Corrected 62.8 mL/MIN; Creatinine 24 Hour Urine 790 mg/day (800-1800); Creatinine Clearance Urine 64.5 mL/MIN; Creatinine Urine Random 31.6 mg/dL; Patient Height Urine 66 inches; Patient Weight Urine 153 lbs; Protein (Total) Urine Random 11 mg/dL (0-12); Total Protein 24 Hour Urine 275 mg/day (42-225); Total Volume Urine 2500 mL
== END ==
PROVIDERS: PCP Internal Medicine; Referring Provider Internal Medicine Gastroenterology; Visit Provider Internal Medicine Gastroenterology
DX: Z48.298 Encounter for aftercare following other organ transplant (principal); Z79.4 Long term (current) use of insulin; Z79.899 Other long term (current) drug therapy
CPT/HCPCS: 36415; 82565; 82570; 82575; 84156

== ENCOUNTER → 2022-01-07 08:31 | Outpatient (CLI) | payer OTHER, MEDICAID, SELFPAY ==
[2019-02-28 13:29] VITALS: BMI 27.5
[2022-01-07 09:56] LABS: Add Manual Diff / Slide Review NO; Basophils Absolute Auto 0 /uL (0-100); Basophils Percent Auto 1.3 % (0-2); Eosinophils Absolute Auto 100 /uL (0-450); Eosinophils Percent Auto 2.2 % (2-4); Hematocrit 30.5 % (36-46); Hemoglobin 10.6 g/dL (12.0-16.0); Lymphocytes Absolute Auto 900 /uL (1100-4500); Lymphocytes Percent Auto 24.6 % (25-40); Mean Corpuscular HGB Conc 34.9 % (30-36); Mean Corpuscular Hemoglobin 29.9 PG (26-34); Mean Corpuscular Volume 85.7 fL (80-100); Monocytes Absolute Auto 400 /uL (0-900); Monocytes Percent Auto 9.4 % (3-14); Neutrophils Absolute Auto 2400 /uL (1500-7000); Neutrophils Percent Auto 62.5 % (50-75); Platelet Count 236 X10^3/uL (150-400); Red Blood Cell Count 3.56 X10^6/uL (4.0-5.2); Red Cell Distribution Width 13.4 % (11.6-14.8); White Blood Cell Count 3.8 X10^3/uL (4.5-11.0)
[2022-01-07 09:58] LABS: INR 1.2 (0.9-1.3); Prothrombin Time 13.6 SECONDS (10.1-12.7)
[2022-01-07 10:20] LABS: Alanine Aminotransferase 20 IU/L (<35); Albumin 4.4 g/dL (3.5-5.0); Albumin Globulin Ratio 1.8 (1.0-2.8); Alkaline Phosphatase 74 U/L (38-126); Aspartate Aminotransferase 21 IU/L (14-36); BUN Creatinine Ratio 17.2 (6-22); Bilirubin Total 0.5 mg/dL (0.2-1.3); Bilirubin Unconjugated 0.5 mg/dL (0.0-1.1); Blood Urea Nitrogen 15 mg/dL (7-17); Calcium 9.3 mg/dL (8.4-10.2); Carbon Dioxide 23 mmol/L (22-32); Chloride 98 mmol/L (98-107); Estimated Glomerular Filt Rate > 60 mL/min (>60); Gamma Glutamyl Transpeptidase 19 U/L (12-43); Globulin 2.4 g/dL (1.7-4.1); Glucose 107 mg/dL (70-100); HEMOLYSIS < 15 (0-50); Magnesium 1.4 mg/dL (1.6-2.3); Phosphorous 3.8 mg/dL (2.5-4.5); Potassium 4.8 mmol/L (3.4-5.1); Sodium 132 mmol/L (137-145); Total Protein 6.8 g/dL (6.3-8.2)
[2022-01-11 17:38] LABS: Tacrolimus 6.4 ng/mL (2.0-20.0)
== END ==
PROVIDERS: PCP Internal Medicine; Referring Provider Internal Medicine Gastroenterology; Visit Provider Internal Medicine Gastroenterology
DX: Z48.298 Encounter for aftercare following other organ transplant (principal); Z94.4 Liver transplant status; Z79.899 Other long term (current) drug therapy; E55.9 Vitamin D deficiency, unspecified
CPT/HCPCS: 36415; 80048; 80076; 80197; 82977; 83735; 84100; 85025; 85610

== ENCOUNTER → 2022-02-07 08:07 | Outpatient (CLI) | payer OTHER, MEDICAID, SELFPAY ==
[2019-02-28 13:29] VITALS: BMI 27.5
[2022-02-07 08:56] LABS: Add Manual Diff / Slide Review NO; Basophils Absolute Auto 0 /uL (0-100); Eosinophils Absolute Auto 100 /uL (0-450); Eosinophils Percent Auto 2.6 % (2-4); Hematocrit 30.7 % (36-46); Hemoglobin 10.9 g/dL (12.0-16.0); Lymphocytes Absolute Auto 1300 /uL (1100-4500); Lymphocytes Percent Auto 25.8 % (25-40); Mean Corpuscular HGB Conc 35.3 % (30-36); Mean Corpuscular Hemoglobin 30.1 PG (26-34); Mean Corpuscular Volume 85.1 fL (80-100); Monocytes Absolute Auto 500 /uL (0-900); Monocytes Percent Auto 9.5 % (3-14); Neutrophils Absolute Auto 3100 /uL (1500-7000); Neutrophils Percent Auto 61.1 % (50-75); Platelet Count 239 X10^3/uL (150-400); Red Blood Cell Count 3.61 X10^6/uL (4.0-5.2); Red Cell Distribution Width 12.8 % (11.6-14.8); White Blood Cell Count 5.1 X10^3/uL (4.5-11.0)
[2022-02-07 08:59] LABS: INR 1.1 (0.9-1.3); Prothrombin Time 12.9 SECONDS (10.1-12.7)
[2022-02-07 09:32] LABS: HEMOLYSIS < 15 (0-50)
[2022-02-07 09:33] LABS: Alanine Aminotransferase 22 IU/L (<35); Albumin 4.3 g/dL (3.5-5.0); Alkaline Phosphatase 85 U/L (38-126); Aspartate Aminotransferase 20 IU/L (14-36); BUN Creatinine Ratio 17.5 (6-22); Bilirubin Total 0.6 mg/dL (0.2-1.3); Bilirubin Unconjugated 0.5 mg/dL (0.0-1.1); Blood Urea Nitrogen 17 mg/dL (7-17); Calcium 9.2 mg/dL (8.4-10.2); Carbon Dioxide 24 mmol/L (22-32); Chloride 98 mmol/L (98-107); Estimated Glomerular Filt Rate > 60 mL/min (>60); Globulin 2.2 g/dL (1.7-4.1); Glucose 101 mg/dL (70-100); Magnesium 1.5 mg/dL (1.6-2.3); Phosphorous 4.1 mg/dL (2.5-4.5); Sodium 131 mmol/L (137-145); Total Protein 6.5 g/dL (6.3-8.2)
[2022-02-08 09:37] LABS: Tacrolimus 7.2 ng/mL (2.0-20.0)
== END ==
PROVIDERS: PCP Internal Medicine; Referring Provider Internal Medicine Gastroenterology; Visit Provider Internal Medicine Gastroenterology
DX: E55.9 Vitamin D deficiency, unspecified (principal); Z94.4 Liver transplant status; Z79.899 Other long term (current) drug therapy; Z48.298 Encounter for aftercare following other organ transplant
CPT/HCPCS: 36415; 80048; 80076; 80197; 83735; 84100; 85025; 85610

== ENCOUNTER → 2022-05-06 07:55 | Outpatient (CLI) | payer OTHER, MEDICAID, SELFPAY ==
[2019-02-28 13:29] VITALS: BMI 27.5
[2022-05-06 09:06] LABS: Add Manual Diff / Slide Review NO; Basophils Absolute Auto 0 /uL (0-100); Basophils Percent Auto 0.8 % (0-2); Eosinophils Absolute Auto 100 /uL (0-450); Hematocrit 29.9 % (36-46); Hemoglobin 10.5 g/dL (12.0-16.0); Lymphocytes Absolute Auto 1200 /uL (1100-4500); Lymphocytes Percent Auto 27.8 % (25-40); Mean Corpuscular HGB Conc 35.3 % (30-36); Monocytes Absolute Auto 300 /uL (0-900); Monocytes Percent Auto 7.9 % (3-14); Neutrophils Absolute Auto 2700 /uL (1500-7000); Neutrophils Percent Auto 61.5 % (50-75); Platelet Count 203 X10^3/uL (150-400); Red Blood Cell Count 3.51 X10^6/uL (4.0-5.2); Red Cell Distribution Width 12.8 % (11.6-14.8); White Blood Cell Count 4.4 X10^3/uL (4.5-11.0)
[2022-05-06 09:20] LABS: INR 1.2 (0.9-1.3); Prothrombin Time 14.3 SECONDS (10.1-12.7)
[2022-05-06 09:39] LABS: Alanine Aminotransferase 20 IU/L (<35); Albumin 4.4 g/dL (3.5-5.0); Albumin Globulin Ratio 1.9 (1.0-2.8); Alkaline Phosphatase 85 U/L (38-126); Aspartate Aminotransferase 22 IU/L (14-36); BUN Creatinine Ratio 20.2 (6-22); Bilirubin Total 0.7 mg/dL (0.2-1.3); Bilirubin Unconjugated 0.3 mg/dL (0.0-1.1); Blood Urea Nitrogen 18 mg/dL (7-17); Calcium 9.2 mg/dL (8.4-10.2); Carbon Dioxide 23 mmol/L (22-32); Chloride 96 mmol/L (98-107); Estimated Glomerular Filt Rate > 60 mL/min (>60); Globulin 2.3 g/dL (1.7-4.1); Glucose 107 mg/dL (70-100); HEMOLYSIS < 15 (0-50); Magnesium 1.5 mg/dL (1.6-2.3); Phosphorous 4.3 mg/dL (2.5-4.5); Potassium 4.7 mmol/L (3.4-5.1); Sodium 129 mmol/L (137-145); Total Protein 6.7 g/dL (6.3-8.2)
[2022-05-06 09:44] LABS: Gamma Glutamyl Transpeptidase 22 U/L (12-43)
[2022-05-07 12:33] LABS: Tacrolimus 7.3 ng/mL (2.0-20.0)
== END ==
PROVIDERS: PCP Internal Medicine; Referring Provider Internal Medicine Gastroenterology; Visit Provider Internal Medicine Gastroenterology
DX: Z94.4 Liver transplant status (principal); Z48.298 Encounter for aftercare following other organ transplant; Z79.899 Other long term (current) drug therapy
CPT/HCPCS: 36415; 80048; 80076; 80197; 82977; 83735; 84100; 85025; 85610

== ENCOUNTER → 2022-08-08 08:18 | Outpatient (CLI) | payer OTHER, MEDICAID, SELFPAY ==
[2019-02-28 13:29] VITALS: BMI 27.5
[2022-08-08 09:35] LABS: INR 1.2 (0.9-1.3); Prothrombin Time 13.5 SECONDS (10.1-12.7)
[2022-08-08 09:46] LABS: Add Manual Diff / Slide Review NO; Basophils Absolute Auto 0 /uL (0-100); Basophils Percent Auto 0.8 % (0-2); Eosinophils Absolute Auto 100 /uL (0-450); Eosinophils Percent Auto 2.7 % (2-4); Hematocrit 29.4 % (36-46); Hemoglobin 10.7 g/dL (12.0-16.0); Lymphocytes Absolute Auto 1300 /uL (1100-4500); Lymphocytes Percent Auto 26.3 % (25-40); Mean Corpuscular HGB Conc 36.3 % (30-36); Mean Corpuscular Hemoglobin 31.4 PG (26-34); Mean Corpuscular Volume 86.4 fL (80-100); Monocytes Absolute Auto 500 /uL (0-900); Monocytes Percent Auto 9.5 % (3-14); Neutrophils Absolute Auto 3100 /uL (1500-7000); Neutrophils Percent Auto 60.7 % (50-75); Platelet Count 238 X10^3/uL (150-400); Red Blood Cell Count 3.41 X10^6/uL (4.0-5.2); Red Cell Distribution Width 12.9 % (11.6-14.8); White Blood Cell Count 5.1 X10^3/uL (4.5-11.0)
[2022-08-08 09:55] LABS: Alanine Aminotransferase 26 IU/L (<35); Albumin 4.3 g/dL (3.5-5.0); Albumin Globulin Ratio 1.7 (1.0-2.8); Alkaline Phosphatase 83 U/L (38-126); Aspartate Aminotransferase 26 IU/L (14-36); BUN Creatinine Ratio 20.9 (6-22); Bilirubin Total 0.6 mg/dL (0.2-1.3); Bilirubin Unconjugated 0.4 mg/dL (0.0-1.1); Blood Urea Nitrogen 18 mg/dL (7-17); Calcium 9.2 mg/dL (8.4-10.2); Carbon Dioxide 25 mmol/L (22-32); Chloride 96 mmol/L (98-107); Estimated Glomerular Filt Rate > 60 mL/min (>60); Globulin 2.5 g/dL (1.7-4.1); Glucose 91 mg/dL (70-100); HEMOLYSIS < 15 (0-50); Magnesium 1.5 mg/dL (1.6-2.3); Phosphorous 3.8 mg/dL (2.5-4.5); Potassium 4.8 mmol/L (3.4-5.1); Sodium 130 mmol/L (137-145); Total Protein 6.8 g/dL (6.3-8.2)
[2022-08-08 10:04] LABS: Gamma Glutamyl Transpeptidase 20 U/L (12-43)
[2022-08-15 09:57] LABS: Tacrolimus 5.3
== END ==
PROVIDERS: PCP Internal Medicine; Referring Provider Internal Medicine Gastroenterology; Visit Provider Internal Medicine Gastroenterology
DX: Z48.298 Encounter for aftercare following other organ transplant (principal); Z94.4 Liver transplant status; Z79.899 Other long term (current) drug therapy
CPT/HCPCS: 36415; 80048; 80076; 80197; 82977; 83735; 84100; 85025; 85610

== ENCOUNTER 2022-10-21 10:21 | Inpatient (IN) | payer OTHER, MEDICAID, SELFPAY ==
[2019-02-28 13:29] VITALS: BMI 27.5
[2022-10-21] VITALS (33 sets, daily range): BP systolic 80–122; BP diastolic 47–78; PULSE 62–98; RESP 16–18; TEMP 36.2–36.9; O2SAT 94–99; BMI 25.0; BMI 26.9
[2022-10-21 10:52] LABS: Add Manual Diff / Slide Review NO; Basophils Absolute Auto 0 /uL (0-100); Basophils Percent Auto 0.3 % (0-2); Eosinophils Absolute Auto 100 /uL (0-450); Eosinophils Percent Auto 0.7 % (2-4); Hematocrit 30.9 % (36-46); Hemoglobin 11.1 g/dL (12.0-16.0); Lymphocytes Absolute Auto 1100 /uL (1100-4500); Mean Corpuscular HGB Conc 35.8 % (30-36); Mean Corpuscular Hemoglobin 31.3 PG (26-34); Mean Corpuscular Volume 87.5 fL (80-100); Monocytes Absolute Auto 1100 /uL (0-900); Monocytes Percent Auto 9.9 % (3-14); Neutrophils Absolute Auto 8900 /uL (1500-7000); Neutrophils Percent Auto 79.1 % (50-75); Platelet Count 228 X10^3/uL (150-400); Red Blood Cell Count 3.53 X10^6/uL (4.0-5.2); Red Cell Distribution Width 12.7 % (11.6-14.8); White Blood Cell Count 11.3 X10^3/uL (4.5-11.0)
[2022-10-21 11:02] LABS: Lactate (Lactic Acid) 0.7 mmol/L (0.7-2.1)
[2022-10-21 11:03] LABS: Alanine Aminotransferase 20 IU/L (<35); Albumin 4.3 g/dL (3.5-5.0); Albumin Globulin Ratio 1.5 (1.0-2.8); Alkaline Phosphatase 98 U/L (38-126); Aspartate Aminotransferase 21 IU/L (14-36); BUN Creatinine Ratio 22.5 (6-22); Blood Urea Nitrogen 18 mg/dL (7-17); Calcium 8.7 mg/dL (8.4-10.2); Carbon Dioxide 17 mmol/L (22-32); Chloride 99 mmol/L (98-107); Estimated Glomerular Filt Rate > 60 mL/min (>60); Globulin 2.9 g/dL (1.7-4.1); Glucose 128 mg/dL (70-100); HEMOLYSIS < 15 (0-50); Lipase 84 U/L (23-300); Potassium 4.2 mmol/L (3.4-5.1); Sodium 129 mmol/L (137-145); Total Protein 7.2 g/dL (6.3-8.2)
[2022-10-21] MEDS: KETOROLAC 30 MG/ML VIAL 15 MG IV (11:06)
[2022-10-21] MEDS: ONDANSETRON 4 MG/2 ML INJ IV (11:06)
--- NOTE | 2022-10-21 11:09 | DI.CT.S_ITS ---
PROCEDURE: CT ABDOMEN PELVIS W CON INDICATIONS: hx diverticulitis, abd pain TECHNIQUE: After the administration of intravenous contrast, axial sections acquired from the lung bases to the pubic symphysis. Coronal and sagittal reformats were performed. For radiation dose reduction, the following was used: automated exposure control, adjustment of mA and/or kV according to patient size. COMPARISON: [facility], CT, CT ABDOMEN PELVIS W CON, 05/25/2019, 1:07. FINDINGS: Image quality: Excellent. Lung bases: Unremarkable. Heart: No significant findings. ABDOMEN: Liver: Interval liver transplant. Transplant liver has a normal appearance. Gallbladder: Surgically absent Biliary ducts: Unremarkable. Pancreas: Unremarkable. Spleen: Unremarkable. Adrenal Glands: Unremarkable. Kidneys and Ureters: Unremarkable. Stomach and Bowel: Findings are suspicious for a possible proximal rectal cancer with perforation in a region with diverticuli versus is the presence of diverticulitis with extensive associated bowel wall edema with a cut off noted. Image 72/2 gives the appearance of a potential apple-core lesion. There is extensive wall edema. There are diverticuli at this location, and there is impressive inflammatory change and some fluid subjacent to this segment. Peritoneum: There is early deep pelvic abscess formation, measuring approximately 3.1 x 1.7 cm. It is not currently drainable by CT. No free air. Ventral Wall: No hernias. Abdominal Nodes: No retroperitoneal or mesenteric adenopathy by size criteria. Vessels: Aorta and inferior vena cava are normal in size. PELVIS: Pelvic Organs: Unremarkable. Bladder: Unremarkable. Pelvic Nodes: No enlarged lymph nodes. Miscellaneous: No hernias are seen. Bones: Lumbar degenerative change. No lytic or blastic bony lesions. No compression fractures. IMPRESSION: 1. There is a markedly abnormal appearance of the proximal rectum. This may either all represent diverticulitis, or may potentially represent a perforated constricting malignancy. 2. Early abscess formation, currently not drainable by CT. 3. Transplant liver is unremarkable in appearance. Comment: Recommend colonoscopy after current symptomatology resolves. Dictated by: Lm Villasenor M.D. on 10/21/2022 at 12:23 Approved by: Lm Villasenor M.D. on 10/21/2022 at 12:30
[2022-10-21] MEDS: SODIUM CHLORIDE 0.9% 1,000 ML 1000 ML IV ×3 (11:11→18:22)
--- NOTE | 2022-10-21 11:22 | ED_ITS ---
HPI - Abdominal Pain <Brandi Webster [employer] WORK[employer] - Last Filed: 10/28/22 11:08> General Chief Complaint: Abdominal Pain Stated Complaint: abdominal pain, hx of diverticulitis Time Seen by Provider: 10/21/22 11:09 Source: patient Mode of arrival: Ambulatory History of Present Illness HPI narrative: This is a 46-year-old female who is 1 year status post a liver transplant for alcoholic cirrhosis, cholecystectomy, has had history of cellulitis in the past who endorses that yesterday she had some dysuria, states that she felt poorly while driving and when she got out of the car she vomited once, has had chills, nausea, suprapubic pain and right flank pain with transverse lower abdominal pain. She started with dysuria today and is concerned about a urinary tract infection. She takes tacrolimus only for anti-rejection. States that she is for years sober from alcohol, states that she is doing well. Yesterday she felt poorly and states that she is been eating a higher protein diet than usual. Has not had history of kidney stone in the past. Related Data Home Medications Medication Instructions Recorded Confirmed multivitamin with minerals-folic 1 tab PO DAILY 08/14/18 10/21/22 acid 200 mcg chewable tablet (Adult Multivitamin Gummies) nortriptyline 25 mg capsule 25 mg PO BEDTIME 11/07/19 10/21/22 acetaminophen 500 mg tablet 1,000 mg PO Q4-6H PRN fever or pain 09/01/20 10/21/22 sertraline 100 mg tablet 100 mg PO DAILY 12/10/21 10/21/22 tacrolimus 1 mg capsule, 2.5 mg PO BID 10/21/22 10/21/22 immediate-release Previous Rx's Medication Instructions Recorded budesonide-formoterol HFA 160 2 puff inhalation QID #91.8 grams 06/24/22 mcg-4.5 mcg/actuation aerosol inhaler (Symbicort) trazodone 50 mg tablet 50 mg PO BEDTIME PRN insomnia #90 07/25/22 tabs fluticasone 500 mcg-salmeterol 50 1 inh inhalation BID #60 ea 10/03/22 mcg/dose blistr powdr for inhalation (Advair Diskus) ciprofloxacin HCl 500 mg tablet 500 mg PO BID 10 days #20 tabs 10/21/22 metronidazole 500 mg tablet 500 mg PO TID 10 days #30 tabs 10/21/22 Allergies Allergy/AdvReac Type Severity Reaction Status Date / Time aspirin AdvReac Unknown Verified 10/21/22 10:31 Review of Systems <OPAL Lee - Last Filed: 10/28/22 11:08> Review of Systems ROS Unobtainable: All systems reviewed & are unremarkable except as noted in HPI and below Patient History <OPAL Lee - Last Filed: 10/28/22 11:08> Medical History Alcoholic hepatitis Alcoholism in remission Allergic rhinitis Asthma Bipolar disorder Bruises easily Chronic migraine Chronic renal failure, stage 3a Cirrhosis Diverticular disease of colon Dizziness Duodenal ulcer (09/2009) Esophageal varices Esophageal varices in alcoholic cirrhosis Former smoker Gastric antral vascular ectasia (~11/2019) Gastro-esophageal reflux (12/31/10) History of UTI Major depressive disorder, recurrent, moderate (12/31/10) Seizure (~07/11/18) Seizure disorder Surgical History History of cholecystectomy Liver transplant status (12/01/19) S/P liver transplant (12/01/19) Status post endoscopy (09/2009) Family History Other Alcoholism Asthma Social History household members: significant other Smoking Status: Former smoker alcohol intake: former Smoking Status: Former smoker alcohol intake frequency: other Substance Use Type: does not use Exam <OPAL Lee - Last Filed: 10/28/22 11:08> Narrative Exam Narrative: Reviewed vitals signs and nursing notes. General: Pleasant, sitting upright, in no acute distress, well groomed, afebrile HEENT: symmetrical facial expressions, moist mucous membranes, neck is supple CV: regular rate and rhythm, heart rate is elevated at 98, warm extremities Respiratory: normal work of breathing, without tachypnea or hypoxia. GI: abdomen soft, nondistended, right-sided CVA tenderness, transverse lower abdominal tenderness MSK: moves all extremities, no weakness, normal tone, ambulatory without deficit Skin: brisk capillary refill, without rash or wound Neuro: clear speech and normal cognition, A&O x3, GCS 15, no focal motor or sensation deficits Initial Vital Signs Initial Vital Signs: Vital Signs Temperature 98.4 F 10/21/22 10:25 Pulse Rate 94 H 10/21/22 10:25 Respiratory Rate 18 10/21/22 10:25 Blood Pressure 98/61 10/21/22 10:25 Pulse Oximetry 99 10/21/22 10:25 Oxygen Delivery Method Room Air 10/21/22 10:25 <Kizzy Escalante DO - Last Filed: 10/21/22 19:15> Initial Vital Signs Initial Vital Signs: Vital Signs Temperature 98.4 F 10/21/22 10:25 Pulse Rate 94 H 10/21/22 10:25 Respiratory Rate 18 10/21/22 10:25 Blood Pressure 98/61 10/21/22 10:25 Pulse Oximetry 99 10/21/22 10:25 Oxygen Delivery Method Room Air 10/21/22 10:25 Course <OPAL Lee - Last Filed: 10/28/22 11:08> Orders Ordered: Discontinued Medications Acetaminophen (Acetaminophen 325 Mg Tablet) 650 mg PO Q6H PRN PRN Reason: Fever/Mild Pain (1-3) Last Admin: 10/24/22 05:09 Dose: 650 mg Documented By: Admin: 10/23/22 20:35 Dose: 650 mg Documented By: Admin: 10/23/22 15:24 Dose: 650 mg Documented By: Admin: 10/23/22 08:49 Dose: 650 mg Documented By: Admin: 10/22/22 15:46 Dose: 650 mg Documented By: Admin: 10/21/22 22:31 Dose: 650 mg Documented By: CT Al Hydrox/Mg Hydrox/Simethicone (Mag Hydrox/Alum/Simeth 30 Ml Udc) 30 ml PO Q6HR PRN PRN Reason: Dyspepsia Albuterol (Albuterol 2.5 Mg/3 Ml Neb (Adult)) 2.5 mg INH Q4HRWA [facility] Last Admin: 10/24/22 13:48 Dose: Not Given Documented By: Admin: 10/24/22 09:13 Dose: 2.5 mg Documented By: JHayden Admin: 10/23/22 19:17 Dose: 2.5 mg Documented By: Admin: 10/23/22 17:45 Dose: Not Given Documented By: Admin: 10/23/22 12:41 Dose: Not Given Documented By: Admin: 10/23/22 07:32 Dose: 2.5 mg Documented By: Admin: 10/22/22 23:04 Dose: Not Given Documented By: Admin: 10/22/22 17:55 Dose: 2.5 mg Documented By: Admin: 10/22/22 13:00 Dose: Not Given Documented By: Admin: 10/22/22 09:08 Dose: 2.5 mg Documented By: SAT Albuterol (Albuterol 2.5 Mg/3 Ml Neb (Adult)) 2.5 mg INH Q2H PRN PRN Reason: Shortness Of Breath Budesonide (Budesonide 0.5 Mg/2 Ml Neb) 0.5 mg INH RTBID [facility] Last Admin: 10/24/22 09:14 Dose: 0.5 mg Documented By: Admin: 10/23/22 19:17 Dose: 0.5 mg Documented By: Admin: 10/23/22 07:32 Dose: 0.5 mg Documented By: Admin: 10/22/22 18:00 Dose: 0.5 mg Documented By: Admin: 10/22/22 09:08 Dose: 0.5 mg Documented By: SAT Ciprofloxacin (Ciprofloxacin 250 Mg Tablet) 500 mg PO 0700,2100 [facility] Last Admin: 10/24/22 07:25 Dose: 500 mg Documented By: Admin: 10/23/22 20:37 Dose: 500 mg Documented By: Enoxaparin Sodium (Enoxaparin 40 Mg/0.4 Ml Syringe) 40 mg SUBCUT DAILY [facility] Last Admin: 10/24/22 09:03 Dose: 40 mg Documented By: Admin: 10/23/22 08:42 Dose: 40 mg Documented By: Admin: 10/22/22 08:49 Dose: 40 mg Documented By: SANDRA Hydromorphone HCl (Hydromorphone 0.5 Mg Inj) 0.5 mg IV NOW ONE Stop: 10/21/22 14:35 Last Admin: 10/21/22 14:41 Dose: 0.5 mg Documented By: DON Hydromorphone HCl (Hydromorphone 0.5 Mg Inj) 0.5 mg IV Q2H PRN PRN Reason: Pain, Severe (7-10) Last Admin: 10/22/22 08:46 Dose: 0.5 mg Documented By: Admin: 10/21/22 22:34 Dose: 0.5 mg Documented By: KALE Sodium Chloride (Normal Saline 0.9%) 1,000 mls @ 1,000 mls/hr IV BOLUS ONE Stop: 10/21/22 11:45 Last Infusion: 10/21/22 12:03 Dose: 0 mls/hr Documented By: Admin: 10/21/22 11:11 Dose: 1,000 mls/hr Documented By: EDUARDO Sodium Chloride (Normal Saline 0.9%) 1,000 mls @ 1,000 mls/hr IV BOLUS ONE Stop: 10/21/22 12:08 Last Infusion: 10/21/22 13:29 Dose: 0 mls/hr Documented By: Admin: 10/21/22 12:09 Dose: 1,000 mls/hr Documented By: MARKOS Ceftriaxone Sodium 1,000 mg/ (Sodium Chloride) 100 mls @ 200 mls/hr IV NOW ONE Stop: 10/21/22 11:38 Last Infusion: 10/21/22 13:02 Dose: 0 mls/hr Documented By: Admin: 10/21/22 12:09 Dose: 200 mls/hr Documented By: MARKOS Metronidazole (Flagyl) 500 mg in 100 mls @ 100 mls/hr IV Q8H [facility] Last Admin: 10/21/22 21:00 Dose: Not Given Documented By: Infusion: 10/21/22 14:43 Dose: 0 mls/hr Documented By: Admin: 10/21/22 13:28 Dose: 100 mls/hr Documented By: DON Sodium Chloride (Normal Saline 0.9%) 1,000 mls @ 1,000 mls/hr IV BOLUS ONE Stop: 10/21/22 18:43 Last Infusion: 10/21/22 19:36 Dose: 0 mls/hr Documented By: Admin: 10/21/22 18:22 Dose: 1,000 mls/hr Documented By: SB Lactated Ringer's (Lactated Ringers) 1,000 mls @ 125 mls/hr IV CONT [facility] Last Infusion: 10/23/22 11:12 Dose: 0 mls/hr Documented By: Admin: 10/23/22 00:55 Dose: 125 mls/hr Documented By: Infusion: 10/22/22 23:19 Dose: 125 mls/hr Documented By: Admin: 10/22/22 15:19 Dose: 125 mls/hr Documented By: Infusion: 10/22/22 13:42 Dose: 125 mls/hr Documented By: Admin: 10/22/22 05:42 Dose: 125 mls/hr Documented By: Infusion: 10/22/22 05:42 Dose: 125 mls/hr Documented By: Admin: 10/21/22 22:32 Dose: 125 mls/hr Documented By: CT Ceftriaxone Sodium 2,000 mg/ (Sodium Chloride) 100 mls @ 200 mls/hr IV Q24H [facility] Last Admin: 10/21/22 22:05 Dose: Not Given Documented By: CT Metronidazole (Flagyl) 500 mg in 100 mls @ 100 mls/hr IV Q6H [facility] Last Admin: 10/23/22 10:46 Dose: Not Given Documented By: Admin: 10/23/22 04:44 Dose: 100 mls/hr Documented By: Infusion: 10/22/22 22:25 Dose: 100 mls/hr Documented By: Admin: 10/22/22 21:25 Dose: 100 mls/hr Documented By: Infusion: 10/22/22 17:21 Dose: 0 mls/hr Documented By: Admin: 10/22/22 15:19 Dose: 100 mls/hr Documented By: Infusion: 10/22/22 10:39 Dose: 0 mls/hr Documented By: Admin: 10/22/22 09:15 Dose: 100 mls/hr Documented By: Infusion: 10/22/22 06:00 Dose: 0 mls/hr Documented By: Admin: 10/22/22 04:58 Dose: 100 mls/hr Documented By: Infusion: 10/21/22 23:35 Dose: 0 mls/hr Documented By: Admin: 10/21/22 22:33 Dose: 100 mls/hr Documented By: CT Ceftriaxone Sodium 2,000 mg/ (Sodium Chloride) 100 mls @ 200 mls/hr IV Q24H [facility] Last Admin: 10/23/22 00:52 Dose: 200 mls/hr Documented By: Infusion: 10/22/22 01:01 Dose: 0 mls/hr Documented By: Admin: 10/22/22 00:30 Dose: 200 mls/hr Documented By: CT Lactated Ringer's (Lactated Ringers) 1,000 mls @ 80 mls/hr IV CONT [facility] Last Admin: 10/24/22 05:09 Dose: 125 mls/hr Documented By: Infusion: 10/24/22 05:09 Dose: 125 mls/hr Documented By: Admin: 10/23/22 21:41 Dose: 125 mls/hr Documented By: Infusion: 10/23/22 20:43 Dose: 125 mls/hr Documented By: Admin: 10/23/22 12:43 Dose: 125 mls/hr Documented By: NOEMI Ketorolac Tromethamine (Ketorolac 30 Mg/Ml Vial) 15 mg IV NOW ONE Stop: 10/21/22 10:47 Last Admin: 10/21/22 11:06 Dose: 15 mg Documented By: EDUARDO Metronidazole (Metronidazole 500 Mg Tablet) 500 mg PO QID [facility] Last Admin: 10/24/22 09:03 Dose: 500 mg Documented By: Admin: 10/23/22 20:37 Dose: 500 mg Documented By: Admin: 10/23/22 17:21 Dose: 500 mg Documented By: Admin: 10/23/22 13:03 Dose: 500 mg Documented By: NOEMI Naloxone HCl (Naloxone 0.4 Mg/Ml Vial) 0.2 mg IV Q2MIN PRN PRN Reason: Opiate Reversal Non-Formulary Medication (Budesonide-Formoterol [Symbicort]) 2 puff INHALATION QID [facility] Non-Formulary Medication (Fluticasone Propion-Salmeterol [Advair Diskus]) 1 inhalation INHALATION BID [facility] Non-Formulary Medication (Mycophenolate Sodium) 360 mg PO BID [facility] Last Admin: 10/22/22 08:40 Dose: Not Given Documented By: SANDRA Nortriptyline HCl (Nortriptyline Hcl 25 Mg Capsule) 25 mg PO BEDTIME [facility] Last Admin: 10/23/22 20:37 Dose: Not Given Documented By: Admin: 10/22/22 20:38 Dose: 25 mg Documented By: Ondansetron HCl (Ondansetron 4 Mg Odt) 4 mg PO NOW PRN PRN Reason: Nausea And Vomiting Ondansetron HCl (Ondansetron 4 Mg/2 Ml Inj) 4 mg IV NOW PRN PRN Reason: Nausea And Vomiting Last Admin: 10/21/22 11:06 Dose: 4 mg Documented By: EDUARDO Ondansetron HCl (Ondansetron 4 Mg/2 Ml Inj) 4 mg IV Q8HR PRN PRN Reason: Nausea And Vomiting Last Admin: 10/23/22 08:50 Dose: 4 mg Documented By: Admin: 10/22/22 15:26 Dose: 4 mg Documented By: ISACC Oxycodone HCl (Oxycodone 5 Mg/5 Ml Oral Solution) 5 mg PO Q4H PRN PRN Reason: Pain, Moderate (4-6) Oxycodone HCl (Oxycodone Ir 5 Mg Tablet) 5 mg PO Q4HR PRN PRN Reason: Pain, Moderate (4-6) Last Admin: 10/22/22 20:37 Dose: 5 mg Documented By: Admin: 10/22/22 14:22 Dose: 5 mg Documented By: Admin: 10/22/22 10:41 Dose: 5 mg Documented By: Admin: 10/22/22 05:42 Dose: 5 mg Documented By: KALE Scopolamine (Scopolamine 1 Patch) 1 patch TOP Q72H [facility] Last Admin: 10/23/22 11:08 Dose: 1 patch Documented By: NOEMI Sertraline HCl (Sertraline 50 Mg Tablet) 100 mg PO DAILY [facility] Last Admin: 10/24/22 09:03 Dose: 100 mg Documented By: Admin: 10/23/22 08:42 Dose: 100 mg Documented By: Admin: 10/22/22 08:49 Dose: 100 mg Documented By: SANDRA Sodium Biphosphate/Sodium Phosphate (Fleets Enema) [address] PRN PRN PRN Reason: Constipation Tacrolimus (Tacrolimus 0.5 Mg Capsule) 3 mg PO BID [facility] Tacrolimus (Tacrolimus 0.5 Mg Capsule) 0.5 mg PO BID [facility] Tacrolimus (Tacrolimus 0.5 Mg Capsule) 2.5 mg PO BID [facility] Tacrolimus (Tacrolimus 0.5 Mg Capsule) 2.5 mg PO BID [facility] Last Admin: 10/24/22 09:03 Dose: 2.5 mg Documented By: Admin: 10/23/22 20:36 Dose: 2.5 mg Documented By: Admin: 10/23/22 08:42 Dose: 2.5 mg Documented By: Admin: 10/22/22 20:37 Dose: 2.5 mg Documented By: Admin: 10/22/22 08:49 Dose: 2.5 mg Documented By: Admin: 10/21/22 22:33 Dose: 2.5 mg Documented By: CT Trazodone HCl (Trazodone 50 Mg Tablet) 50 mg PO BEDTIME PRN PRN Reason: insomnia Last Admin: 10/23/22 20:36 Dose: 50 mg Documented By: Admin: 10/22/22 20:43 Dose: 50 mg Documented By: Admin: 10/21/22 22:33 Dose: 50 mg Documented By: CT Vital Signs Vital signs: Vital Signs - 8 hr 10/21/22 13:58 10/21/22 13:59 10/21/22 13:59 Temperature Pulse Rate 74 72 Respiratory Rate Blood Pressure 104/55 L Pulse Oximetry 97 97 Oxygen Delivery Method 10/21/22 14:00 10/21/22 14:00 10/21/22 14:30 Temperature Pulse Rate 68 65 Respiratory Rate Blood Pressure 108/57 L Pulse Oximetry 98 96 Oxygen Delivery Method 10/21/22 14:42 10/21/22 14:42 10/21/22 15:00 Temperature Pulse Rate 72 67 Respiratory Rate Blood Pressure 115/58 L Pulse Oximetry 97 94 Oxygen Delivery Method Room Air 10/21/22 15:29 10/21/22 15:29 10/21/22 15:30 Temperature Pulse Rate 72 Respiratory Rate Blood Pressure 92/50 L 93/55 L Pulse Oximetry 96 Oxygen Delivery Method 10/21/22 15:30 10/21/22 16:00 10/21/22 16:00 Temperature Pulse Rate 75 70 Respiratory Rate Blood Pressure 91/54 L Pulse Oximetry 96 96 Oxygen Delivery Method Room Air Room Air 10/21/22 16:36 10/21/22 16:30 10/21/22 16:30 Temperature Pulse Rate 88 65 Respiratory Rate 18 Blood Pressure 94/54 L 80/47 L Pulse Oximetry 96 Oxygen Delivery Method 10/21/22 16:35 10/21/22 16:35 10/21/22 16:45 Temperature Pulse Rate 73 78 Respiratory Rate Blood Pressure 94/56 L Pulse Oximetry 97 96 Oxygen Delivery Method Room Air 10/21/22 17:00 10/21/22 17:00 10/21/22 17:15 Temperature 98.5 F Pulse Rate 68 66 Respiratory Rate Blood Pressure 89/51 L Pulse Oximetry 94 95 Oxygen Delivery Method 10/21/22 17:30 10/21/22 17:30 10/21/22 17:30 Temperature Pulse Rate 72 72 Respiratory Rate 16 Blood Pressure 83/51 L Pulse Oximetry 95 95 Oxygen Delivery Method Room Air 10/21/22 17:32 10/21/22 17:32 10/21/22 17:48 Temperature Pulse Rate 72 Respiratory Rate Blood Pressure 87/52 L 97/54 L Pulse Oximetry 96 Oxygen Delivery Method Room Air 10/21/22 18:30 10/21/22 17:45 10/21/22 17:47 Temperature 98.4 F Pulse Rate 74 Respiratory Rate Blood Pressure 92/54 L Pulse Oximetry 94 Oxygen Delivery Method 10/21/22 17:47 10/21/22 18:00 10/21/22 18:00 Temperature Pulse Rate 73 65 Respiratory Rate Blood Pressure 89/53 L Pulse Oximetry 96 95 Oxygen Delivery Method 10/21/22 18:15 10/21/22 18:25 10/21/22 18:25 Temperature Pulse Rate 66 71 Respiratory Rate Blood Pressure 99/59 L Pulse Oximetry 95 97 Oxygen Delivery Method Room Air 10/21/22 18:30 10/21/22 18:30 10/21/22 18:45 Temperature Pulse Rate 69 Respiratory Rate Blood Pressure 97/54 L 103/59 L Pulse Oximetry 96 Oxygen Delivery Method 10/21/22 18:45 10/21/22 19:00 10/21/22 19:00 Temperature Pulse Rate 65 62 Respiratory Rate Blood Pressure 104/63 Pulse Oximetry 96 97 Oxygen Delivery Method Room Air Room Air <Kizzy Escalante DO - Last Filed: 10/21/22 19:15> Orders Ordered: Discontinued Medications Acetaminophen (Acetaminophen 325 Mg Tablet) 650 mg PO Q6H PRN PRN Reason: Fever/Mild Pain (1-3) Last Admin: 10/24/22 05:09 Dose: 650 mg Documented By: Admin: 10/23/22 20:35 Dose: 650 mg Documented By: Admin: 10/23/22 15:24 Dose: 650 mg Documented By: Admin: 10/23/22 08:49 Dose: 650 mg Documented By: Admin: 10/22/22 15:46 Dose: 650 mg Documented By: Admin: 10/21/22 22:31 Dose: 650 mg Documented By: CT Al Hydrox/Mg Hydrox/Simethicone (Mag Hydrox/Alum/Simeth 30 Ml Udc) 30 ml PO Q6HR PRN PRN Reason: Dyspepsia Albuterol (Albuterol 2.5 Mg/3 Ml Neb (Adult)) 2.5 mg INH Q4HRWA [facility] Last Admin: 10/24/22 13:48 Dose: Not Given Documented By: Admin: 10/24/22 09:13 Dose: 2.5 mg Documented By: Admin: 10/23/22 19:17 Dose: 2.5 mg Documented By: Admin: 10/23/22 17:45 Dose: Not Given Documented By: Admin: 10/23/22 12:41 Dose: Not Given Documented By: Admin: 10/23/22 07:32 Dose: 2.5 mg Documented By: Admin: 10/22/22 23:04 Dose: Not Given Documented By: Admin: 10/22/22 17:55 Dose: 2.5 mg Documented By: Admin: 10/22/22 13:00 Dose: Not Given Documented By: Admin: 10/22/22 09:08 Dose: 2.5 mg Documented By: SAT Albuterol (Albuterol 2.5 Mg/3 Ml Neb (Adult)) 2.5 mg INH Q2H PRN PRN Reason: Shortness Of Breath Budesonide (Budesonide 0.5 Mg/2 Ml Neb) 0.5 mg INH RTBID [facility] Last Admin: 10/24/22 09:14 Dose: 0.5 mg Documented By: Admin: 10/23/22 19:17 Dose: 0.5 mg Documented By: Admin: 10/23/22 07:32 Dose: 0.5 mg Documented By: Admin: 10/22/22 18:00 Dose: 0.5 mg Documented By: Admin: 10/22/22 09:08 Dose: 0.5 mg Documented By: SAT Ciprofloxacin (Ciprofloxacin 250 Mg Tablet) 500 mg PO 0700,2100 [facility] Last Admin: 10/24/22 07:25 Dose: 500 mg Documented By: Admin: 10/23/22 20:37 Dose: 500 mg Documented By: MS Enoxaparin Sodium (Enoxaparin 40 Mg/0.4 Ml Syringe) 40 mg SUBCUT DAILY [facility] Last Admin: 10/24/22 09:03 Dose: 40 mg Documented By: Admin: 10/23/22 08:42 Dose: 40 mg Documented By: Admin: 10/22/22 08:49 Dose: 40 mg Documented By: SANDRA Hydromorphone HCl (Hydromorphone 0.5 Mg Inj) 0.5 mg IV NOW ONE Stop: 10/21/22 14:35 Last Admin: 10/21/22 14:41 Dose: 0.5 mg Documented By: DON Hydromorphone HCl (Hydromorphone 0.5 Mg Inj) 0.5 mg IV Q2H PRN PRN Reason: Pain, Severe (7-10) Last Admin: 10/22/22 08:46 Dose: 0.5 mg Documented By: Admin: 10/21/22 22:34 Dose: 0.5 mg Documented By: KALE Sodium Chloride (Normal Saline 0.9%) 1,000 mls @ 1,000 mls/hr IV BOLUS ONE Stop: 10/21/22 11:45 Last Infusion: 10/21/22 12:03 Dose: 0 mls/hr Documented By: Admin: 10/21/22 11:11 Dose: 1,000 mls/hr Documented By: EDUARDO Sodium Chloride (Normal Saline 0.9%) 1,000 mls @ 1,000 mls/hr IV BOLUS ONE Stop: 10/21/22 12:08 Last Infusion: 10/21/22 13:29 Dose: 0 mls/hr Documented By: Admin: 10/21/22 12:09 Dose: 1,000 mls/hr Documented By: MARKOS Ceftriaxone Sodium 1,000 mg/ (Sodium Chloride) 100 mls @ 200 mls/hr IV NOW ONE Stop: 10/21/22 11:38 Last Infusion: 10/21/22 13:02 Dose: 0 mls/hr Documented By: Admin: 10/21/22 12:09 Dose: 200 mls/hr Documented By: MARKOS Metronidazole (Flagyl) 500 mg in 100 mls @ 100 mls/hr IV Q8H [facility] Last Admin: 10/21/22 21:00 Dose: Not Given Documented By: Infusion: 10/21/22 14:43 Dose: 0 mls/hr Documented By: Admin: 10/21/22 13:28 Dose: 100 mls/hr Documented By: SB Sodium Chloride (Normal Saline 0.9%) 1,000 mls @ 1,000 mls/hr IV BOLUS ONE Stop: 10/21/22 18:43 Last Infusion: 10/21/22 19:36 Dose: 0 mls/hr Documented By: Admin: 10/21/22 18:22 Dose: 1,000 mls/hr Documented By: SB Lactated Ringer's (Lactated Ringers) 1,000 mls @ 125 mls/hr IV CONT [facility] Last Infusion: 10/23/22 11:12 Dose: 0 mls/hr Documented By: Admin: 10/23/22 00:55 Dose: 125 mls/hr Documented By: Infusion: 10/22/22 23:19 Dose: 125 mls/hr Documented By: Admin: 10/22/22 15:19 Dose: 125 mls/hr Documented By: Infusion: 10/22/22 13:42 Dose: 125 mls/hr Documented By: Admin: 10/22/22 05:42 Dose: 125 mls/hr Documented By: Infusion: 10/22/22 05:42 Dose: 125 mls/hr Documented By: Admin: 10/21/22 22:32 Dose: 125 mls/hr Documented By: CT Ceftriaxone Sodium 2,000 mg/ (Sodium Chloride) 100 mls @ 200 mls/hr IV Q24H [facility] Last Admin: 10/21/22 22:05 Dose: Not Given Documented By: CT Metronidazole (Flagyl) 500 mg in 100 mls @ 100 mls/hr IV Q6H [facility] Last Admin: 10/23/22 10:46 Dose: Not Given Documented By: Admin: 10/23/22 04:44 Dose: 100 mls/hr Documented By: Infusion: 10/22/22 22:25 Dose: 100 mls/hr Documented By: Admin: 10/22/22 21:25 Dose: 100 mls/hr Documented By: Infusion: 10/22/22 17:21 Dose: 0 mls/hr Documented By: Admin: 10/22/22 15:19 Dose: 100 mls/hr Documented By: Infusion: 10/22/22 10:39 Dose: 0 mls/hr Documented By: Admin: 10/22/22 09:15 Dose: 100 mls/hr Documented By: Infusion: 10/22/22 06:00 Dose: 0 mls/hr Documented By: Admin: 10/22/22 04:58 Dose: 100 mls/hr Documented By: Infusion: 10/21/22 23:35 Dose: 0 mls/hr Documented By: Admin: 10/21/22 22:33 Dose: 100 mls/hr Documented By: CT Ceftriaxone Sodium 2,000 mg/ (Sodium Chloride) 100 mls @ 200 mls/hr IV Q24H [facility] Last Admin: 10/23/22 00:52 Dose: 200 mls/hr Documented By: Infusion: 10/22/22 01:01 Dose: 0 mls/hr Documented By: Admin: 10/22/22 00:30 Dose: 200 mls/hr Documented By: CT Lactated Ringer's (Lactated Ringers) 1,000 mls @ 80 mls/hr IV CONT [facility] Last Admin: 10/24/22 05:09 Dose: 125 mls/hr Documented By: Infusion: 10/24/22 05:09 Dose: 125 mls/hr Documented By: Admin: 10/23/22 21:41 Dose: 125 mls/hr Documented By: Infusion: 10/23/22 20:43 Dose: 125 mls/hr Documented By: Admin: 10/23/22 12:43 Dose: 125 mls/hr Documented By: NOEMI Ketorolac Tromethamine (Ketorolac 30 Mg/Ml Vial) 15 mg IV NOW ONE Stop: 10/21/22 10:47 Last Admin: 10/21/22 11:06 Dose: 15 mg Documented By: EDUARDO Metronidazole (Metronidazole 500 Mg Tablet) 500 mg PO QID [facility] Last Admin: 10/24/22 09:03 Dose: 500 mg Documented By: Admin: 10/23/22 20:37 Dose: 500 mg Documented By: Admin: 10/23/22 17:21 Dose: 500 mg Documented By: Admin: 10/23/22 13:03 Dose: 500 mg Documented By: NOEMI Naloxone HCl (Naloxone 0.4 Mg/Ml Vial) 0.2 mg IV Q2MIN PRN PRN Reason: Opiate Reversal Non-Formulary Medication (Budesonide-Formoterol [Symbicort]) 2 puff INHALATION QID [facility] Non-Formulary Medication (Fluticasone Propion-Salmeterol [Advair Diskus]) 1 inhalation INHALATION BID [facility] Non-Formulary Medication (Mycophenolate Sodium) 360 mg PO BID [facility] Last Admin: 10/22/22 08:40 Dose: Not Given Documented By: SANDRA Nortriptyline HCl (Nortriptyline Hcl 25 Mg Capsule) 25 mg PO BEDTIME [facility] Last Admin: 10/23/22 20:37 Dose: Not Given Documented By: Admin: 10/22/22 20:38 Dose: 25 mg Documented By: Ondansetron HCl (Ondansetron 4 Mg Odt) 4 mg PO NOW PRN PRN Reason: Nausea And Vomiting Ondansetron HCl (Ondansetron 4 Mg/2 Ml Inj) 4 mg IV NOW PRN PRN Reason: Nausea And Vomiting Last Admin: 10/21/22 11:06 Dose: 4 mg Documented By: EDUARDO Ondansetron HCl (Ondansetron 4 Mg/2 Ml Inj) 4 mg IV Q8HR PRN PRN Reason: Nausea And Vomiting Last Admin: 10/23/22 08:50 Dose: 4 mg Documented By: Admin: 10/22/22 15:26 Dose: 4 mg Documented By: ISACC Oxycodone HCl (Oxycodone 5 Mg/5 Ml Oral Solution) 5 mg PO Q4H PRN PRN Reason: Pain, Moderate (4-6) Oxycodone HCl (Oxycodone Ir 5 Mg Tablet) 5 mg PO Q4HR PRN PRN Reason: Pain, Moderate (4-6) Last Admin: 10/22/22 20:37 Dose: 5 mg Documented By: Admin: 10/22/22 14:22 Dose: 5 mg Documented By: Admin: 10/22/22 10:41 Dose: 5 mg Documented By: Admin: 10/22/22 05:42 Dose: 5 mg Documented By: CT Scopolamine (Scopolamine 1 Patch) 1 patch TOP Q72H [facility] Last Admin: 10/23/22 11:08 Dose: 1 patch Documented By: NOEMI Sertraline HCl (Sertraline 50 Mg Tablet) 100 mg PO DAILY [facility] Last Admin: 10/24/22 09:03 Dose: 100 mg Documented By: Admin: 10/23/22 08:42 Dose: 100 mg Documented By: Admin: 10/22/22 08:49 Dose: 100 mg Documented By: SANDRA Sodium Biphosphate/Sodium Phosphate (Fleets Enema) [address] PRN PRN PRN Reason: Constipation Tacrolimus (Tacrolimus 0.5 Mg Capsule) 3 mg PO BID [facility] Tacrolimus (Tacrolimus 0.5 Mg Capsule) 0.5 mg PO BID [facility] Tacrolimus (Tacrolimus 0.5 Mg Capsule) 2.5 mg PO BID [facility] Tacrolimus (Tacrolimus 0.5 Mg Capsule) 2.5 mg PO BID [facility] Last Admin: 10/24/22 09:03 Dose: 2.5 mg Documented By: Admin: 10/23/22 20:36 Dose: 2.5 mg Documented By: Admin: 10/23/22 08:42 Dose: 2.5 mg Documented By: Admin: 10/22/22 20:37 Dose: 2.5 mg Documented By: Admin: 10/22/22 08:49 Dose: 2.5 mg Documented By: Admin: 10/21/22 22:33 Dose: 2.5 mg Documented By: CT Trazodone HCl (Trazodone 50 Mg Tablet) 50 mg PO BEDTIME PRN PRN Reason: insomnia Last Admin: 10/23/22 20:36 Dose: 50 mg Documented By: Admin: 10/22/22 20:43 Dose: 50 mg Documented By: Admin: 10/21/22 22:33 Dose: 50 mg Documented By: CT Vital Signs Vital signs: Vital Signs - 8 hr 10/21/22 13:58 10/21/22 13:59 10/21/22 13:59 Temperature Pulse Rate 74 72 Respiratory Rate Blood Pressure 104/55 L Pulse Oximetry 97 97 Oxygen Delivery Method 10/21/22 14:00 10/21/22 14:00 10/21/22 14:30 Temperature Pulse Rate 68 65 Respiratory Rate Blood Pressure 108/57 L Pulse Oximetry 98 96 Oxygen Delivery Method 10/21/22 14:42 10/21/22 14:42 10/21/22 15:00 Temperature Pulse Rate 72 67 Respiratory Rate Blood Pressure 115/58 L Pulse Oximetry 97 94 Oxygen Delivery Method Room Air 10/21/22 15:29 10/21/22 15:29 10/21/22 15:30 Temperature Pulse Rate 72 Respiratory Rate Blood Pressure 92/50 L 93/55 L Pulse Oximetry 96 Oxygen Delivery Method 10/21/22 15:30 10/21/22 16:00 10/21/22 16:00 Temperature Pulse Rate 75 70 Respiratory Rate Blood Pressure 91/54 L Pulse Oximetry 96 96 Oxygen Delivery Method Room Air Room Air 10/21/22 16:36 10/21/22 16:30 10/21/22 16:30 Temperature Pulse Rate 88 65 Respiratory Rate 18 Blood Pressure 94/54 L 80/47 L Pulse Oximetry 96 Oxygen Delivery Method 10/21/22 16:35 10/21/22 16:35 10/21/22 16:45 Temperature Pulse Rate 73 78 Respiratory Rate Blood Pressure 94/56 L Pulse Oximetry 97 96 Oxygen Delivery Method Room Air 10/21/22 17:00 10/21/22 17:00 10/21/22 17:15 Temperature 98.5 F Pulse Rate 68 66 Respiratory Rate Blood Pressure 89/51 L Pulse Oximetry 94 95 Oxygen Delivery Method 10/21/22 17:30 10/21/22 17:30 10/21/22 17:30 Temperature Pulse Rate 72 72 Respiratory Rate 16 Blood Pressure 83/51 L Pulse Oximetry 95 95 Oxygen Delivery Method Room Air 10/21/22 17:32 10/21/22 17:32 10/21/22 17:48 Temperature Pulse Rate 72 Respiratory Rate Blood Pressure 87/52 L 97/54 L Pulse Oximetry 96 Oxygen Delivery Method Room Air 10/21/22 18:30 10/21/22 17:45 10/21/22 17:47 Temperature 98.4 F Pulse Rate 74 Respiratory Rate Blood Pressure 92/54 L Pulse Oximetry 94 Oxygen Delivery Method 10/21/22 17:47 10/21/22 18:00 10/21/22 18:00 Temperature Pulse Rate 73 65 Respiratory Rate Blood Pressure 89/53 L Pulse Oximetry 96 95 Oxygen Delivery Method 10/21/22 18:15 10/21/22 18:25 10/21/22 18:25 Temperature Pulse Rate 66 71 Respiratory Rate Blood Pressure 99/59 L Pulse Oximetry 95 97 Oxygen Delivery Method Room Air 10/21/22 18:30 10/21/22 18:30 10/21/22 18:45 Temperature Pulse Rate 69 Respiratory Rate Blood Pressure 97/54 L 103/59 L Pulse Oximetry 96 Oxygen Delivery Method 10/21/22 18:45 10/21/22 19:00 10/21/22 19:00 Temperature Pulse Rate 65 62 Respiratory Rate Blood Pressure 104/63 Pulse Oximetry 96 97 Oxygen Delivery Method Room Air Room Air MDM - Abdominal Pain <Brandi Webster, [facility] - Last Filed: 10/28/22 11:08> Lab Data 10/23/22 05:20 10/23/22 05:20 Labs: Lab Results 10/21/22 10/21/22 10/21/22 Range/Units 10:40 10:40 10:40 WBC 11.3 H (4.5-11.0) X10^3/uL RBC 3.53 L (4.0-5.2) X10^6/uL Hgb 11.1 L (12.0-16.0) g/dL Hct 30.9 L (36-46) % MCV 87.5 (80-100) fL MCH 31.3 (26-34) PG MCHC 35.8 (30-36) % RDW 12.7 (11.6-14.8) % Plt Count 228 (150-400) X10^3/uL Neut % (Auto) 79.1 H (50-75) % Lymph % (Auto) 10.0 L (25-40) % [place] % (Auto) 9.9 (3-14) % Eos % (Auto) 0.7 L (2-4) % Baso % (Auto) 0.3 (0-2) % Neut # (Auto) 8900 H (3715-9929) /uL Lymph # (Auto) 1100 (4273-3951) /uL [place] # (Auto) 1100 H (0-900) /uL Eos # (Auto) 100 (0-450) /uL Baso # (Auto) 0 (0-100) /uL Sodium 129 L (137-145) mmol/L Potassium 4.2 (3.4-5.1) mmol/L Chloride 99 (98-107) mmol/L Carbon Dioxide 17 L (22-32) mmol/L BUN 18 H (7-17) mg/dL Creatinine 0.80 (0.52-1.04) mg/dL Estimated GFR > 60 (>60) mL/min BUN/Creatinine Ratio 22.5 H (6-22) Glucose 128 H (70-100) mg/dL Lactate 0.7 (0.7-2.1) mmol/L Calcium 8.7 (8.4-10.2) mg/dL Total Bilirubin 1.0 (0.2-1.3) mg/dL AST 21 (14-36) IU/L ALT 20 (<35) IU/L Alkaline Phosphatase 98 (38-126) U/L Total Protein 7.2 (6.3-8.2) g/dL Albumin 4.3 (3.5-5.0) g/dL Globulin 2.9 (1.7-4.1) g/dL Albumin/Globulin Ratio 1.5 (1.0-2.8) Lipase 84 (23-300) U/L Urine RBC (0-5/HPF) Urine WBC (0-5/HPF) Ur Squamous Epith Cells (0-5/HPF) Urine Bacteria (None) Ur Culture Indicated? Tacrolimus SARS-CoV-2 (PCR) (Negative) 10/21/22 10/21/22 10/21/22 Range/Units 12:35 13:00 13:58 WBC (4.5-11.0) X10^3/uL RBC (4.0-5.2) X10^6/uL Hgb (12.0-16.0) g/dL Hct (36-46) % MCV (80-100) fL MCH (26-34) PG MCHC (30-36) % RDW (11.6-14.8) % Plt Count (150-400) X10^3/uL Neut % (Auto) (50-75) % Lymph % (Auto) (25-40) % [place] % (Auto) (3-14) % Eos % (Auto) (2-4) % Baso % (Auto) (0-2) % Neut # (Auto) (9496-5390) /uL Lymph # (Auto) (3013-6775) /uL [place] # (Auto) (0-900) /uL Eos # (Auto) (0-450) /uL Baso # (Auto) (0-100) /uL Sodium (137-145) mmol/L Potassium (3.4-5.1) mmol/L Chloride (98-107) mmol/L Carbon Dioxide (22-32) mmol/L BUN (7-17) mg/dL Creatinine (0.52-1.04) mg/dL Estimated GFR (>60) mL/min BUN/Creatinine Ratio (6-22) Glucose (70-100) mg/dL Lactate (0.7-2.1) mmol/L Calcium (8.4-10.2) mg/dL Total Bilirubin (0.2-1.3) mg/dL AST (14-36) IU/L ALT (<35) IU/L Alkaline Phosphatase (38-126) U/L Total Protein (6.3-8.2) g/dL Albumin (3.5-5.0) g/dL Globulin (1.7-4.1) g/dL Albumin/Globulin Ratio (1.0-2.8) Lipase (23-300) U/L Urine RBC 0-1/hpf (0-5/HPF) Urine WBC 1-5/hpf (0-5/HPF) Ur Squamous Epith Cells 0-1 /hpf (0-5/HPF) Urine Bacteria Many (>30) H (None) Ur Culture Indicated? Cult not indicated Tacrolimus 8.1 SARS-CoV-2 (PCR) Negative (Negative) Point of care testing: Urine Dip Bedside Urine Glucose Negative Bedside Urine Bilirubin - Negative Bedside Urine Ketone - Negative Urine Specific [place] 1.015 Bedside Urine Occult Blood ++ Bedside Urine pH 6.0 Bedside Urine Protein - Negative Bedside Urine Urobilinogen - Negative Bedside Urine Nitrite + Positive Bedside Urine Leukocytes - Negative Esterase Imaging Data CT scan - abdomen/pelvis: Radiologist's Impression: [address] [address] [address] Scan Report Signed Patient: Lanny Ashby#: [id number] : 1975 Acct:[id number] Age/Sex: 46 / F Date of Service: 10/21/22 Loc: ED Accession Number: [id number] ?? Procedure: CT abdomen pelvis w con Ordering Provider: Crew,Brandi JOSEPH PROCEDURE:? CT ABDOMEN PELVIS W CON ? INDICATIONS:? hx diverticulitis, abd pain ? TECHNIQUE:? After the administration of intravenous contrast, axial sections acquired from the lung bases to the pubic symphysis.? Coronal and sagittal reformats were performed.? For radiation dose reduction, the following was used:? automated exposure control, adjustment of mA and/or kV according to patient size.? ? COMPARISON:? [facility], CT, CT ABDOMEN PELVIS W CON, 05/25/2019, 1:07. ? FINDINGS:? Image quality:? Excellent.? ? Lung bases:? Unremarkable. Heart:? No significant findings. ? ABDOMEN: Liver:? Interval liver transplant.? Transplant liver has a normal appearance.? ? Gallbladder:? Surgically absent? ? Biliary ducts:? Unremarkable.? ? Pancreas:? Unremarkable.? ? Spleen:? Unremarkable.? ? Adrenal Glands:? Unremarkable.? ? Kidneys and Ureters:? Unremarkable.? ? ? Stomach and Bowel:? Findings are suspicious for a possible proximal rectal ca ncer with perforation in a region with diverticuli versus is the presence of diverticulitis with extensive associated bowel wall edema with a cut off noted.? Image 72/2 gives the appearance of a potential apple-core lesion.? There is extensive wall edema.? There are diverticuli at this location, and there is impressive inflammatory change and some fluid subjacent to this segment. Peritoneum:? There is early deep pelvic abscess formation, measuring approximately 3.1 x 1.7 cm.? It is not currently drainable by CT.? No free air.? ? Ventral Wall: ? No hernias.? Abdominal Nodes:? No retroperitoneal or mesenteric adenopathy by size criteria.? Vessels:? Aorta and inferior vena cava are normal in size.? ? PELVIS: Pelvic Organs:? Unremarkable.? ? Bladder:? Unremarkable.? ? Pelvic Nodes: No enlarged lymph nodes.? Miscellaneous: No hernias are seen. ? ? ? Bones:? Lumbar degenerative change.? No lytic or blastic bony lesions.? No compression fractures. ? ? IMPRESSION:? ? 1. There is a markedly abnormal appearance of the proximal rectum.? This may either all represent diverticulitis, or may potentially represent a perforated constricting malignancy. ? 2. Early abscess formation, currently not drainable by CT. ? 3. Transplant liver is unremarkable in appearance.? ? Comment:? Recommend colonoscopy after current symptomatology resolves.? ? ? Dictated by: Lm Villasenor M.D. on 10/21/2022 at 12:23 ? ? Approved by: Lm Villasenor M.D. on 10/21/2022 at 12:30 ? MDM Narrative Medical decision making narrative: Chief Complaint: Abdominal pain transverse lower and right flank Multiple etiologies for patient's complaint considered including, but not limited to: Diverticulitis, nephrolithiasis, pyelonephritis, urinary tract infection, obstructive uropathy, perforated viscus, appendicitis, I have independently reviewed the patient's vital signs and nursing notes as well as prior records if available. Plan: Normal saline bolus, Toradol for pain, patient denies the need for Zofran and states that her pain is about a 2/10 right now unless she is palpated. Patient reports that she has not had a bowel movement for the last 2 days and she is having pain towards her rectum which has her concerned for diverticulitis as she is had history of this before. Patient's lab work is significant for mild leukocytosis of 11.3 with a left shift, compressions mild anemia with a hemoglobin and hematocrit of 11.1 and 30.9,, hyponatremia which patient states chronic for her decreased CO2 level at 17, BUN of 18 which is consistent with priors total bilirubin of 1.0, normal transaminases without elevation and normal lipase 94. Patient's urine dip shows 2+ blood, leukocyte esterase, and is positive for nitrites, urine microscopy is pending. Patient's CT abdomen pelvis is significant for ?a markedly abnormal appearance o f the proximal rectum. This may either all represent diverticulitis or may potentially represent a perforated constricting malignancy. Early deep pelvic abscess formation, currently not drainable by CT. Transplant liver is unremarkable in appearance.There is an early deep pelvic abscess formation measuring 3.1 x 1.7 cm which is not currently drainable, no free air. There is extensive wall edema, there is an appearance of an apple core lesion within the colon, and impressive inflammatory changes and some fluid sub adjacent to this segment. Images and chart forwarded to [facility] transplant for consultation. Patient states that she was only on tacrolimus and not on steroid s or other immunosuppressive medications. She is not taking mycophenolate. Patient is updated about these results, receiving IV ceftriaxone and Flagyl. We will consult for possible steroids and/or transfer to [facility]. Consultation with Dr. Singh from [facility] hepatology team who recommends consultation with colorectal surgery for transfer a patient for inpatient possibly surgical management of this complicated patient with new abnormalities on CT. She does not recommend steroids and is okay with ceftriaxone and Flagyl as the plan of care at this time, will await for colorectal surgery consultation from [facility]. Consultation with [facility] again, the General surgery team viewed the CT and determine that this is complicated diverticulitis with phlegmon and that patient can be managed with IV antibiotics and there is no acu te surgical need at this time. Call Center Associate was consulted about this information and recommends admission but does not need admission to [facility] for IV antibiotics to manage complicated diverticulitis. She can have repeat imaging in a few days to determine if this is improved or not. I will consult the hospitalist for admission for IV antibiotics for diverticulitis. I consulted with General surgery Dr. Horowitz who understands that patient will be admitted for complicated diverticulitis, she has received ceftriaxone and Flagyl, she may need a colonoscopy for biopsy, Dr. Reaves hospitalist is aware and understands general surgery has been notified and is onboard for consult ation service during her admission. [facility] offers to be a consult service for patient's admission as well and can be contacted at any time. The licensed psychologist manager is Dr. Singh and general surgery reviewed her CT scan and believes that patient has complicated diverticulitis with phlegmon and can be managed with IV antibiotics at this hospital. Discussion with hospitalist-Dr. Anyi degroot who also spoke with Dr. Horowitz from General surgery, he accepts patient for admission if her blood pressure is rechecked, it was rechecked and is 97/54 with a map of 65. Social considerations that may affect disposition: none Questions are addressed and there is agreement with the plan and for follow-up. I consulted with the ED attending physician Dr. Escalante as needed for higher level of care considerations and they were available for discussion and recommendations regarding plan of care and diagnostic testing. Patient is appropriate for outpatient management. Dr. Escalante: Patient was seen by myself after initial evaluation by LOCATION DIRECTOR Crew. Patient is moderately painful on examination but otherwise well-appearing. Reviewed history, patient was re-examined by myself. She is been afebrile, she is not tachycardic on examination, pressures have been 100 systolic to 90s typically, patient states her normal is 90-95. Patient was given dose of IV Rocephin and Flagyl after CT abdomen pelvis shows an abscess with possible diverticulitis versus malignancy. Patient urine shows possible infection but she is much more tender in the lower abdomen. Patient continued to have fluids. [facility] was consulted she does have known transplant she is 3 years post transplant on tacrolimus and sertraline as her only daily medications. After consultation with transplant team and the surgical team they feel patient is not a surgical candidate they do not recommend transfer but do recommend IV antibiotics at this time. Dr. Horowitz locally for general surgery was consulted who will see the patient if admitted to Medicine. I spoke with Dr. Raymond who accepts for admission. Patient was re-evaluated she had some pressures in the 80s, had some additional fluids this was after she would had some IV narcotics persistent little longer than expected. Has not improved to the 90-100 range. Patient has been asymptomatic otherwise. <Kizzy Escalante, DO - Last Filed: 10/21/22 19:15> Lab Data Labs: Lab Results 10/21/22 10/21/22 10/21/22 Range/Units 10:40 10:40 10:40 WBC 11.3 H (4.5-11.0) X10^3/uL RBC 3.53 L (4.0-5.2) X10^6/uL Hgb 11.1 L (12.0-16.0) g/dL Hct 30.9 L (36-46) % MCV 87.5 (80-100) fL MCH 31.3 (26-34) PG MCHC 35.8 (30-36) % RDW 12.7 (11.6-14.8) % Plt Count 228 (150-400) X10^3/uL Neut % (Auto) 79.1 H (50-75) % Lymph % (Auto) 10.0 L (25-40) % [place] % (Auto) 9.9 (3-14) % Eos % (Auto) 0.7 L (2-4) % Baso % (Auto) 0.3 (0-2) % Neut # (Auto) 8900 H (0568-3465) /uL Lymph # (Auto) 1100 (3853-8385) /uL [place] # (Auto) 1100 H (0-900) /uL Eos # (Auto) 100 (0-450) /uL Baso # (Auto) 0 (0-100) /uL Sodium 129 L (137-145) mmol/L Potassium 4.2 (3.4-5.1) mmol/L Chloride 99 (98-107) mmol/L Carbon Dioxide 17 L (22-32) mmol/L BUN 18 H (7-17) mg/dL Creatinine 0.80 (0.52-1.04) mg/dL Estimated GFR > 60 (>60) mL/min BUN/Creatinine Ratio 22.5 H (6-22) Glucose 128 H (70-100) mg/dL Lactate 0.7 (0.7-2.1) mmol/L Calcium 8.7 (8.4-10.2) mg/dL Total Bilirubin 1.0 (0.2-1.3) mg/dL AST 21 (14-36) IU/L ALT 20 (<35) IU/L Alkaline Phosphatase 98 (38-126) U/L Total Protein 7.2 (6.3-8.2) g/dL Albumin 4.3 (3.5-5.0) g/dL Globulin 2.9 (1.7-4.1) g/dL Albumin/Globulin Ratio 1.5 (1.0-2.8) Lipase 84 (23-300) U/L Urine RBC (0-5/HPF) Urine WBC (0-5/HPF) Ur Squamous Epith Cells (0-5/HPF) Urine Bacteria (None) Ur Culture Indicated? Tacrolimus SARS-CoV-2 (PCR) (Negative) 10/21/22 10/21/22 10/21/22 Range/Units 12:35 13:00 13:58 WBC (4.5-11.0) X10^3/uL RBC (4.0-5.2) X10^6/uL Hgb (12.0-16.0) g/dL Hct (36-46) % MCV (80-100) fL MCH (26-34) PG MCHC (30-36) % RDW (11.6-14.8) % Plt Count (150-400) X10^3/uL Neut % (Auto) (50-75) % Lymph % (Auto) (25-40) % [place] % (Auto) (3-14) % Eos % (Auto) (2-4) % Baso % (Auto) (0-2) % Neut # (Auto) (1549-0257) /uL Lymph # (Auto) (7197-1354) /uL [place] # (Auto) (0-900) /uL Eos # (Auto) (0-450) /uL Baso # (Auto) (0-100) /uL Sodium (137-145) mmol/L Potassium (3.4-5.1) mmol/L Chloride (98-107) mmol/L Carbon Dioxide (22-32) mmol/L BUN (7-17) mg/dL Creatinine (0.52-1.04) mg/dL Estimated GFR (>60) mL/min BUN/Creatinine Ratio (6-22) Glucose (70-100) mg/dL Lactate (0.7-2.1) mmol/L Calcium (8.4-10.2) mg/dL Total Bilirubin (0.2-1.3) mg/dL AST (14-36) IU/L ALT (<35) IU/L Alkaline Phosphatase (38-126) U/L Total Protein (6.3-8.2) g/dL Albumin (3.5-5.0) g/dL Globulin (1.7-4.1) g/dL Albumin/Globulin Ratio (1.0-2.8) Lipase (23-300) U/L Urine RBC 0-1/hpf (0-5/HPF) Urine WBC 1-5/hpf (0-5/HPF) Ur Squamous Epith Cells 0-1 /hpf (0-5/HPF) Urine Bacteria Many (>30) H (None) Ur Culture Indicated? Cult not indicated Tacrolimus 8.1 SARS-CoV-2 (PCR) Negative (Negative) Point of care testing: Urine Dip Bedside Urine Glucose Negative Bedside Urine Bilirubin - Negative Bedside Urine Ketone - Negative Urine Specific [place] 1.015 Bedside Urine Occult Blood ++ Bedside Urine pH 6.0 Bedside Urine Protein - Negative Bedside Urine Urobilinogen - Negative Bedside Urine Nitrite + Positive Bedside Urine Leukocytes - Negative Esterase MDM Narrative Medical decision making narrative: Chief Complaint: Abdominal pain transverse lower and right flank Multiple etiologies for patient's complaint considered including, but not limited to: Diverticulitis, nephrolithiasis, pyelonephritis, urinary tract infection, obstructive uropathy, perforated viscus, appendicitis, I have independently reviewed the patient's vital signs and nursing notes as well as prior records if available. Plan: Normal saline bolus, Toradol for pain, patient denies the need for Zofran and states that her pain is about a 2/10 right now unless she is palpated. Patient reports that she has not had a bowel movement for the last 2 days and she is having pain towards her rectum which has her concerned for diverticulitis as she is had history of this before. Patient's lab work is significant for mild leukocytosis of 11.3 with a left shift, compressions mild anemia with a hemoglobin and hematocrit of 11.1 and 30.9,, hyponatremia which patient states chronic for her decreased CO2 level at 17, BUN of 18 which is consistent with priors total bilirubin of 1.0, normal transaminases without elevation and normal lipase 94. Patient's urine dip shows 2+ blood, leukocyte esterase, and is positive for nitrites, urine microscopy is pending. Patient's CT abdomen pelvis is significant for ?a markedly abnormal appearance of the proximal rectum. This may either all represent diverticulitis or may potentially represent a perforated constricting malignancy. Early deep pelvic abscess formation, currently not drainable by CT. Transplant liver is unremarkable in appearance.There is an early deep pelvic abscess formation me asuring 3.1 x 1.7 cm which is not currently drainable, no free air. There is extensive wall edema, there is an appearance of an apple core lesion within the colon, and impressive inflammatory changes and some fluid sub adjacent to this segment. Images and chart forwarded to [facility] transplant for consultation. Patient states that she was only on tacrolimus and not on steroids or other immunosuppressive medications. She is not taking mycophenolate. Patient is updated about these results, receiving IV ceftriaxone and Flagyl. We will consult for possible steroids and/or transfer to [facility]. Consultation with Dr. Singh from [facility] hepatology team who recommends consultation with colorectal surgery for transfer a patient for inpatient possibly surgical management of this complicated patient with new abnormalities on CT. She does not recommend steroids and is okay with ceftriaxone and Flagyl as the plan of care at this time, will await for colorectal surgery consultation from [facility]. Consultation with [facility] again, the General surgery team viewed the CT and determine that this is complicated diverticulitis with phlegmon and that patient can be managed with IV antibiotics and there is no acute surgical need at this time. Call Center Associate was consulted about this information and recommends admission but does not need admission to [facility] for IV antibiotics to manage complicated diverticulitis. She can have repeat imaging in a few days to determine if this is improved or not. I will consult the hospitalist for admission for IV antibiotics for diverticulitis. I consulted with General surgery Dr. Horowitz who understands that patient will be admitted for complicated diverticulitis, she has received ceftriaxone and Flagyl, she may need a colonoscopy for biopsy, Dr. Reaves hospitalist is aware and understands general surgery has been notified and is onboard for consultatio n service during her admission. [facility] offers to be a consult service for patient's admission as well and can be contacted at any time. The licensed psychologist manager is Dr. Singh and general surgery reviewed her CT scan and believes that patient has complicated diverticulitis with phlegmon and can be managed with IV antibiotics at this hospital. Discussion with hospitalist-Dr. Anyi degroot who also spoke with Dr. Horowitz from General surgery, he accepts patient for admission if her blood pressure is rechecked, it was rechecked and is 97/54 with a map of 65. Social considerations that may affect disposition: none Questions are addressed and there is agreement with the plan and for follow-up. I consulted with the ED attending physician Dr. Escalante as needed for higher level of care considerations and they were available for discussion and recommendations regarding plan of care and diagnostic testing. Patient is appropriate for outpatient management. Dr. Escalante: Patient was seen by myself after initial evaluation by LOCATION DIRECTOR Crew. Patient is moderately painful on examination but otherwise well-appearing. Reviewed history, patient was re-examined by myself. She is been afebrile, she is not tachycardic on examination, pressures have been 100 systolic to 90s typically, patient states her normal is 90-95. Patient was given dose of IV Rocephin and Flagyl after CT abdomen pelvis shows a abscess with possible diverticulitis versus malignancy. Patient urine shows possible infection but she is much more tender in the lower abdomen. Patient continued to have fluids. [facility] was consulted she does have known transplant she is 3 years post transplant on tacrolimus and sertraline as her only daily medications. After consultation with transplant team and the surgical team they feel patient is not a surgical candidate they do not recommend transfer but do recommend IV antibiotics at this time. Dr. Carlos Manuel fernandez for general surgery was consulted who will see the patient if admitted to Medicine. I spoke with Dr. Raymond who accepts for admission. Patient was re-evaluated she had some pressures in the 80s, had some additional fluids this was after she would had some IV narcotics persistent little longer than expected. Has not improved to the 90-100 range. Patient has been asymptomatic otherwise. Discharge Plan Departure Patient Disposition: Home Clinical Impression: Diverticulitis, Acute abscess of female pelvis, History of liver transplant
[2022-10-21] MEDS: cefTRIAXone 1,000 MG in SODIUM CHLORIDE 0.9% 100 ML 200 MG IV (12:09)
[2022-10-21 13:05] LABS: Bacteria Urine Many (>30); Culture Indicated Urine Cult Not Indicated; RBC Urine 0-1/HPF (0-5/HPF); Squamous Epithelial Cell Urine 0-1 /HPF (0-5/HPF); WBC Urine 1-5/HPF (0-5/HPF)
[2022-10-21] MEDS: metroNIDAZOLE 500 MG/100 ML PIGGYBACK 100 MG IV ×2 (13:28→22:33)
[2022-10-21 14:18] LABS: COVID19 -Nasal RAPID Negative (Negative)
[2022-10-21] MEDS: HYDROMORPHONE 0.5 MG INJ IV ×2 (14:41→22:34)
--- NOTE | 2022-10-21 15:41 | PC.NURSE ---
Addendum entered by Cornelio Loja R.N. 10/21/22 17:36: Patient reports being very tired. Pt is no longer dizzy. Provider aware of patient presentation and most recent vitals. No new orders at this time. Original Note: Pt reports being dizzy. Vitals taken. Provider made aware of patient reports and vitals. No new orders at this time.
[2022-10-21] MEDS: ACETAMINOPHEN 325 MG TABLET 650 MG PO (22:31)
[2022-10-21] MEDS: LACTATED RINGERS 1,000 ML 125 ML IV (22:32)
[2022-10-21] MEDS: TACROLIMUS 0.5 MG CAPSULE 2.5 MG PO (22:33)
[2022-10-21] MEDS: TRAZODONE 50 MG TABLET PO (22:33)
[2022-10-22] VITALS (9 sets, daily range): BP systolic 103–115; BP diastolic 57–68; PULSE 72–82; RESP 16–20; TEMP 36.1–36.7; O2SAT 93–99
[2022-10-22] MEDS: cefTRIAXone 2,000 MG in SODIUM CHLORIDE 0.9% 100 ML 200 MG IV (00:30)
[2022-10-22] MEDS: metroNIDAZOLE 500 MG/100 ML PIGGYBACK 100 MG IV ×4 (04:58→21:25)
[2022-10-22] MEDS: LACTATED RINGERS 1,000 ML 125 ML IV ×2 (05:42→15:19)
[2022-10-22] MEDS: OXYCODONE IR 5 MG TABLET PO ×4 (05:42→20:37)
[2022-10-22 05:48] LABS: Basophils Absolute Auto 0 /uL (0-100); Eosinophils Absolute Auto 100 /uL (0-450); Eosinophils Percent Auto 1.9 % (2-4); Hematocrit 26.8 % (36-46); Hemoglobin 9.4 g/dL (12.0-16.0); Lymphocytes Absolute Auto 1000 /uL (1100-4500); Mean Corpuscular Hemoglobin 31.3 PG (26-34); Monocytes Absolute Auto 600 /uL (0-900); White Blood Cell Count 5.7 X10^3/uL (4.5-11.0)
[2022-10-22 06:08] LABS: Alanine Aminotransferase 351 IU/L (<35); Albumin 3.4 g/dL (3.5-5.0); Albumin Globulin Ratio 1.4 (1.0-2.8); Alkaline Phosphatase 212 U/L (38-126); Aspartate Aminotransferase 341 IU/L (14-36); BUN Creatinine Ratio 17.9 (6-22); Bilirubin Total 0.7 mg/dL (0.2-1.3); Blood Urea Nitrogen 15 mg/dL (7-17); Carbon Dioxide 21 mmol/L (22-32); Chloride 107 mmol/L (98-107); Estimated Glomerular Filt Rate > 60 mL/min (>60); Globulin 2.5 g/dL (1.7-4.1); Glucose 83 mg/dL (70-100); HEMOLYSIS < 15 (0-50); Potassium 4.2 mmol/L (3.4-5.1); Sodium 136 mmol/L (137-145); Total Protein 5.9 g/dL (6.3-8.2)
[2022-10-22 06:27] LABS: Add Manual Diff / Slide Review NO; Basophils Percent Auto 0.5 % (0-2); Lymphocytes Percent Auto 18.4 % (25-40); Mean Corpuscular HGB Conc 34.9 % (30-36); Mean Corpuscular Volume 89.5 fL (80-100); Monocytes Percent Auto 10.5 % (3-14); Neutrophils Absolute Auto 3900 /uL (1500-7000); Neutrophils Percent Auto 68.7 % (50-75); Platelet Count 162 X10^3/uL (150-400)
[2022-10-22] MEDS: HYDROMORPHONE 0.5 MG INJ IV (08:46)
[2022-10-22] MEDS: SERTRALINE 50 MG TABLET 100 MG PO (08:49)
[2022-10-22] MEDS: TACROLIMUS 0.5 MG CAPSULE 2.5 MG PO ×2 (08:49→20:37)
[2022-10-22] MEDS: ENOXAPARIN 40 MG/0.4 ML SYRINGE SUBCUT (08:49)
[2022-10-22] MEDS: ALBUTEROL 2.5 MG/3 ML NEB (ADULT) INH ×2 (09:08→17:55)
[2022-10-22] MEDS: BUDESONIDE 0.5 MG/2 ML NEB INH ×2 (09:08→18:00)
--- NOTE | 2022-10-22 09:55 | PM.HP.1 ---
History of Present Illness History of Present Illness Date Patient Seen: 10/22/22 Time Patient Seen: 09:55 Date of Onset of Symptoms: 10/22/22 Chief complaint: abdominal pain, hx of diverticulitis Narrative: Patient is a 46-year-old female with history of liver transplant 3 years ago who presents with abdominal pain starting . Patient states had mostly left lower quadrant pain with some nausea and vomiting. No radiation. Should did not have any fever but had chills. Pain was quite severe. Seem to radiate to her back. But no other changes. She is had no blood in her stool but has noted a little bit of diarrhea which started at that time. Decreased appetite. She is had no right upper quadrant pain or other changes. Energy level has been down. Otherwise has been feeling good. No history of trauma. Sees her transplant team on a yearly basis. But otherwise has no changes. Patient has a similar episode back in December of 2021. Treated with oral antibiotics. No other change. Patient has a history of alcohol abuse not active at this time. Sober for 4 years. History of smoking but not smoking now. No other changes. No travel. [facility] Medical History Alcoholic hepatitis Alcoholism in remission Allergic rhinitis Asthma Bipolar disorder Bruises easily Chronic migraine Chronic renal failure, stage 3a Cirrhosis Diverticular disease of colon Dizziness Duodenal ulcer (09/2009) Esophageal varices Esophageal varices in alcoholic cirrhosis Former smoker Gastric antral vascular ectasia (~11/2019) Gastro-esophageal reflux (12/31/10) History of UTI Major depressive disorder, recurrent, moderate (12/31/10) Seizure (~07/11/18) Seizure disorder Surgical History History of cholecystectomy Liver transplant status (12/01/19) S/P liver transplant (12/01/19) Status post endoscopy (09/2009) Family History Other Alcoholism Asthma Social History household members: significant other Smoking Status: Former smoker alcohol intake: former Meds Home Medications and Allergies Home Medications Medication Instructions Recorded Confirmed Type multivitamin with minerals-folic 1 tab PO DAILY 08/14/18 10/21/22 History acid 200 mcg chewable tablet (Adult Multivitamin Gummies) nortriptyline 25 mg capsule 25 mg PO BEDTIME 11/07/19 10/21/22 History acetaminophen 500 mg tablet 1,000 mg PO Q4-6H PRN fever or pain 09/01/20 10/21/22 History mycophenolate sodium 360 mg 360 mg PO BID 09/01/20 10/21/22 History tablet,delayed release tacrolimus 0.5 mg capsule, 0.5 mg PO BID 09/01/20 10/21/22 History immediate-release tacrolimus 1 mg capsule, 3 mg PO BID 09/01/20 10/21/22 History immediate-release sertraline 100 mg tablet 100 mg PO DAILY 12/10/21 10/21/22 History budesonide-formoterol HFA 160 2 puff inhalation QID #91.8 grams 06/24/22 10/21/22 Rx mcg-4.5 mcg/actuation aerosol inhaler (Symbicort) trazodone 50 mg tablet 50 mg PO BEDTIME PRN insomnia #90 07/25/22 10/21/22 Rx tabs fluticasone 500 mcg-salmeterol 50 1 inh inhalation BID #60 ea 10/03/22 10/21/22 Rx mcg/dose blistr powdr for inhalation (Advair Diskus) ciprofloxacin HCl 500 mg tablet 500 mg PO BID 10 days #20 tabs 10/21/22 10/21/22 Rx metronidazole 500 mg tablet 500 mg PO TID 10 days #30 tabs 10/21/22 10/21/22 Rx tacrolimus 1 mg capsule, 2.5 mg PO BID 10/21/22 10/21/22 History immediate-release Allergies Allergy/AdvReac Type Severity Reaction Status Date / Time aspirin AdvReac Unknown Verified 10/21/22 10:31 Review of Systems Review of Systems Narrative: Negative except as above Exam Vital Signs (past 8 hours): - 10/22/22 06:01 10/22/22 09:11 10/22/22 09:17 Temperature 97.8 F Pulse Rate 73 74 Respiratory Rate 20 16 Blood Pressure 109/60 Pulse Oximetry 96 97 96 Oxygen Delivery Method Room Air Room Air Oxygen Delivery Method Room Air Narrative Exam Narrative: alert mildly anxious female in no acute distress Mucous membranes moist. Neck supple without adenopathy lungs are clear heart is regular rate and rhythm abdomen is soft positive bowel sounds mild diffuse tenderness but but primarily left lower quadrant . Maybe slight rebound. Liver is nontender. Does not appear inflamed. She has no significant right upper quadrant tenderness. Extremities without cyanosis clubbing edema. Skin without rash. No jaundice. Objective Labs 10/22/22 05:25 10/22/22 05:25 Labs: Laboratory Results - last 24 hr 10/21/22 10/21/22 10/21/22 10:40 10:40 10:40 WBC 11.3 H RBC 3.53 L Hgb 11.1 L Hct 30.9 L MCV 87.5 MCH 31.3 MCHC 35.8 RDW 12.7 Plt Count 228 Neut % (Auto) 79.1 H Lymph % (Auto) 10.0 L [place] % (Auto) 9.9 Eos % (Auto) 0.7 L Baso % (Auto) 0.3 Neut # (Auto) 8900 H Lymph # (Auto) 1100 [place] # (Auto) 1100 H Eos # (Auto) 100 Baso # (Auto) 0 Sodium 129 L Potassium 4.2 Chloride 99 Carbon Dioxide 17 L BUN 18 H Creatinine 0.80 Estimated GFR > 60 BUN/Creatinine Ratio 22.5 H Glucose 128 H Lactate 0.7 Calcium 8.7 Total Bilirubin 1.0 AST 21 ALT 20 Alkaline Phosphatase 98 Total Protein 7.2 Albumin 4.3 Globulin 2.9 Albumin/Globulin Ratio 1.5 Lipase 84 Urine RBC Urine WBC Ur Squamous Epith Cells Urine Bacteria Ur Culture Indicated? SARS-CoV-2 (PCR) 10/21/22 10/21/22 10/22/22 12:35 13:58 05:25 WBC 5.7 RBC 3.00 L Hgb 9.4 L Hct 26.8 L MCV 89.5 MCH 31.3 MCHC 34.9 RDW 13.0 Plt Count 162 Neut % (Auto) 68.7 Lymph % (Auto) 18.4 L [place] % (Auto) 10.5 Eos % (Auto) 1.9 L Baso % (Auto) 0.5 Neut # (Auto) 3900 Lymph # (Auto) 1000 L [place] # (Auto) 600 Eos # (Auto) 100 Baso # (Auto) 0 Sodium Potassium Chloride Carbon Dioxide BUN Creatinine Estimated GFR BUN/Creatinine Ratio Glucose Lactate Calcium Total Bilirubin AST ALT Alkaline Phosphatase Total Protein Albumin Globulin Albumin/Globulin Ratio Lipase Urine RBC 0-1/hpf Urine WBC 1-5/hpf Ur Squamous Epith Cells 0-1 /hpf Urine Bacteria Many (>30) H Ur Culture Indicated? Cult not indicated SARS-CoV-2 (PCR) Negative 10/22/22 05:25 WBC RBC Hgb Hct MCV MCH MCHC RDW Plt Count Neut % (Auto) Lymph % (Auto) [place] % (Auto) Eos % (Auto) Baso % (Auto) Neut # (Auto) Lymph # (Auto) [place] # (Auto) Eos # (Auto) Baso # (Auto) Sodium 136 L Potassium 4.2 Chloride 107 Carbon Dioxide 21 L BUN 15 Creatinine 0.84 Estimated GFR > 60 BUN/Creatinine Ratio 17.9 Glucose 83 Lactate Calcium 8.0 L Total Bilirubin 0.7 AST 341 H ALT 351 H Alkaline Phosphatase 212 H D Total Protein 5.9 L Albumin 3.4 L Globulin 2.5 Albumin/Globulin Ratio 1.4 Lipase Urine RBC Urine WBC Ur Squamous Epith Cells Urine Bacteria Ur Culture Indicated? SARS-CoV-2 (PCR) Assessment & Plan Assessment & Plan narrative: Left lower quadrant pain. Appears to be diverticular abscess. Maybe slightly improved on antibiotics. There is some question whether or not this could perforated cancer but it appears to be mostly diverticular abscess with phlegmon. Does not appear to be drainable. Will see what surgical consult feels. Otherwise seems to be doing well. Continue NPO continue IV antibiotics. This was all discussed previously with [facility] who felt like this would be not something that needs to be transferred at this time. Will continue to re-evaluate white count is improved and seems to be trending in the right direction. Will continue current antibiotics and see what surgical consult feels like should be done. Hepatitis. Slightly worsened today and patient with history of transplant. Certainly reassuring scan yesterday. And exam is very comfortable today. No evidence of liver injury or tenderness. But certainly concerning in this. Will continue antibiotics. Will continue to trend and recheck in a.m.. Certainly if worsening will need to discuss with [facility] hopefully this is all secondary to infection and will be resolving discussed with patient. History of liver transplant. Will continue her tacrolimus which is only thing she is been taking. Will continue her current therapy otherwise seems to be doing well those are some concerning increase in her liver function will just have to see where it goes from here. History of depression. Continue her medication seems to be doing well. History of alcohol abuse. Sober. Doing well great attitude will follow History of asthma continue Pulmicort albuterol and proceed from there. DVT prophylaxis Lovenox GI prophylaxis I do not think she needs it at this time. Code status full Disposition. I anticipate probably 2-3 more days of IV antibiotics but will see what surgical consult feels like. Certainly given her risks will need to be conservative in approach. Patient is high risk with significant infection and certainly not capable of being on an outpatient setting with severe illness at this time. Will re-evaluate in a.m.. Quality VTE Deep Vein Thrombosis/Pulmonary Embolism Present on Admission: No
--- NOTE | 2022-10-22 12:00 | PM.CN ---
History of Present Illness Consult details Date Patient Seen: 10/22/22 Time Patient Seen: 12:00 Chief complaint: abdominal pain, hx of diverticulitis Reason for consult: Ruptured diverticulitis with pelvic abscess Requesting provider: Kizzy Escalante Narrative: Patient presented to the emergency department with pelvic pressure and increasing pain. CT scan performed to demonstrate a ruptured diverticulitis with a pelvic abscess approximately 3 cm in size that will not be amenable to IR drainage if it does not respond to antibiotics. She is also 3 years out from a liver transplant, so her films were reviewed with the transplant team at under surgeons there felt that medical management was appropriate and declined transfer at this time. Patient reports not passing gas or having bowel movements however not nauseated or vomiting. Pain is deep in the pelvis and not perirectal in nature. Meds Home Medications and Allergies Home Medications Medication Instructions Recorded Confirmed Type multivitamin with minerals-folic 1 tab PO DAILY 08/14/18 10/21/22 History acid 200 mcg chewable tablet (Adult Multivitamin Gummies) nortriptyline 25 mg capsule 25 mg PO BEDTIME 11/07/19 10/21/22 History acetaminophen 500 mg tablet 1,000 mg PO Q4-6H PRN fever or pain 09/01/20 10/21/22 History sertraline 100 mg tablet 100 mg PO DAILY 12/10/21 10/21/22 History budesonide-formoterol HFA 160 2 puff inhalation QID #91.8 grams 06/24/22 10/21/22 Rx mcg-4.5 mcg/actuation aerosol inhaler (Symbicort) trazodone 50 mg tablet 50 mg PO BEDTIME PRN insomnia #90 07/25/22 10/21/22 Rx tabs fluticasone 500 mcg-salmeterol 50 1 inh inhalation BID #60 ea 10/03/22 10/21/22 Rx mcg/dose blistr powdr for inhalation (Advair Diskus) ciprofloxacin HCl 500 mg tablet 500 mg PO BID 10 days #20 tabs 10/21/22 10/21/22 Rx metronidazole 500 mg tablet 500 mg PO TID 10 days #30 tabs 10/21/22 10/21/22 Rx tacrolimus 1 mg capsule, 2.5 mg PO BID 10/21/22 10/21/22 History immediate-release Allergies Allergy/AdvReac Type Severity Reaction Status Date / Time aspirin AdvReac Unknown Verified 10/21/22 10:31 Review of Systems Review of Systems ROS: Yes All systems reviewed with the patient and are negative except as otherwise documented Exam Vital Signs (past 8 hours): - 10/22/22 06:01 10/22/22 09:11 10/22/22 09:17 Temperature 97.8 F Pulse Rate 73 74 Respiratory Rate 20 16 Blood Pressure 109/60 Pulse Oximetry 96 97 96 Oxygen Delivery Method Room Air Room Air 10/22/22 11:00 Temperature 97.1 F L Pulse Rate 72 Respiratory Rate 17 Blood Pressure 103/61 Pulse Oximetry 99 Oxygen Delivery Method Oxygen Delivery Method Room Air Const General: cooperative Nutritional Appearance: average body habitus HENMT Head: normocephalic and atraumatic Eyes Sclera: sclerae normal Neck Neck: trachea midline Resp Effort & Inspection: normal respiratory effort and able to speak in complete sentences Cardio Rate: regular rate Rhythm: regular rhythm GI Inspection: normal to inspection Palpation: soft Other: not distended, no guarding, super pubic tenderness Neuro General: patient alert, patient awake and patient oriented x3 Psych Mental Status: mental status grossly normal Objective Labs 10/22/22 05:25 10/22/22 05:25 Labs: Laboratory Results - last 24 hr 10/21/22 10/21/22 10/22/22 12:35 13:58 05:25 WBC 5.7 RBC 3.00 L Hgb 9.4 L Hct 26.8 L MCV 89.5 MCH 31.3 MCHC 34.9 RDW 13.0 Plt Count 162 Neut % (Auto) 68.7 Lymph % (Auto) 18.[address] [place] % (Auto) 10.5 Eos % (Auto) 1.9 L Baso % (Auto) 0.5 Neut # (Auto) 3900 Lymph # (Auto) [address] [place] # (Auto) 600 Eos # (Auto) 100 Baso # (Auto) 0 Sodium Potassium Chloride Carbon Dioxide BUN Creatinine Estimated GFR BUN/Creatinine Ratio Glucose Calcium Total Bilirubin AST ALT Alkaline Phosphatase Total Protein Albumin Globulin Albumin/Globulin Ratio Urine RBC 0-1/hpf Urine WBC 1-5/hpf Ur Squamous Epith Cells 0-1 /hpf Urine Bacteria Many (>30) H Ur Culture Indicated? Cult not indicated SARS-CoV-2 (PCR) Negative 10/22/22 05:25 WBC RBC Hgb Hct MCV MCH MCHC RDW Plt Count Neut % (Auto) Lymph % (Auto) [place] % (Auto) Eos % (Auto) Baso % (Auto) Neut # (Auto) Lymph # (Auto) [place] # (Auto) Eos # (Auto) Baso # (Auto) Sodium 136 L Potassium 4.2 Chloride 107 Carbon Dioxide 21 L BUN 15 Creatinine 0.84 Estimated GFR > 60 BUN/Creatinine Ratio 17.9 Glucose 83 Calcium 8.0 L Total Bilirubin 0.7 AST 341 H ALT 351 H Alkaline Phosphatase 212 H D Total Protein 5.9 L Albumin 3.4 L Globulin 2.5 Albumin/Globulin Ratio 1.4 Urine RBC Urine WBC Ur Squamous Epith Cells Urine Bacteria Ur Culture Indicated? SARS-CoV-2 (PCR) [facility] Medical History Alcoholic hepatitis Alcoholism in remission Allergic rhinitis Asthma Bipolar disorder Bruises easily Chronic migraine Chronic renal failure, stage 3a Cirrhosis Diverticular disease of colon Dizziness Duodenal ulcer (09/2009) Esophageal varices Esophageal varices in alcoholic cirrhosis Former smoker Gastric antral vascular ectasia (~11/2019) Gastro-esophageal reflux (12/31/10) History of UTI Major depressive disorder, recurrent, moderate (12/31/10) Seizure (~07/11/18) Seizure disorder Surgical History History of cholecystectomy Liver transplant status (12/01/19) S/P liver transplant (12/01/19) Status post endoscopy (09/2009) Family History Other Alcoholism Asthma Social History household members: significant other Tobacco & Substance Use Smoking Status: Former smoker alcohol intake: former Assessment & Plan Assessment & Plan narrative: High risk hepatic transplant patient with perforated diverticulitis and 3cm pelvic abscess. Anemia of uncertain importance Elevated LFT's managed by medical team Plan: Reviewed with [facility] transplant team Medical management of IV antibiotics. Time Spent With Patient Time with patient: 30 to 49 minutes with 50% spent counseling/coordinating care
--- NOTE | 2022-10-22 15:07 | CM.DANOTE ---
Initial DCP Assessment Note Pt is a 46yo female, resident of [place], presents with pelvic pressure and abd pain, ruptured diverticulitis with a pelvic abscess found on imaging. Liver transplant 3 years ago. Conservative management w/IV abx. [place], home w/SO Mukul upon DC expected. PCP: Nahum Oakley Payer: [employer] Met w/patient to introduce self and role. 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 Home w/supportive SO Mukul expected upon discharge No barriers identified at this time to patient's safe discharge home w/SO to assist; close outpatient f/u recommended. CM team will plan to follow closely in case any DC needs or concerns arise BRETT Pandey Discharge Planning/Care Management CM Discharge Assessment Start: 10/22/22 15:04 Freq: Status: Active Protocol: Document 10/22/22 15:04 GENA (Rec: 10/22/22 15:07 [id number]) Discharge Planning Assessment Assigned Remanufacturing Technician BRETT Joyner DPOA/Assigned Designee Name GERMAN Desouza Contact Information [phone] Advance Directives? Yes Advance Directives on File No History Provided By Patient,Medical Record Prior Living Arrangements House Household Members significant other Type of transporation used prior to Drives own vehicle admit Independent with ADL's Yes Is patient alert and oriented? Yes Barriers to Discharge No Comment Home Discharge Plan Home Transportation Arrangement GERMAN Vuong Referrals Initiated None needed
[2022-10-22] MEDS: ONDANSETRON 4 MG/2 ML INJ IV (15:26)
[2022-10-22] MEDS: ACETAMINOPHEN 325 MG TABLET 650 MG PO (15:46)
[2022-10-22] MEDS: NORTRIPTYLINE HCL 25 MG CAPSULE PO (20:38)
[2022-10-22] MEDS: TRAZODONE 50 MG TABLET PO (20:43)
[2022-10-23] VITALS (7 sets, daily range): BP systolic 107–126; BP diastolic 58–72; PULSE 56–89; RESP 16–18; TEMP 36.4–36.5; O2SAT 96–99
[2022-10-23] MEDS: cefTRIAXone 2,000 MG in SODIUM CHLORIDE 0.9% 100 ML 200 MG IV (00:52)
[2022-10-23] MEDS: LACTATED RINGERS 1,000 ML 125 ML IV ×3 (00:55→21:41)
[2022-10-23] MEDS: metroNIDAZOLE 500 MG/100 ML PIGGYBACK 100 MG IV (04:44)
[2022-10-23 05:47] LABS: Add Manual Diff / Slide Review NO; Basophils Absolute Auto 0 /uL (0-100); Basophils Percent Auto 0.3 % (0-2); Eosinophils Absolute Auto 100 /uL (0-450); Eosinophils Percent Auto 1.3 % (2-4); Hematocrit 25.6 % (36-46); Lymphocytes Absolute Auto 900 /uL (1100-4500); Lymphocytes Percent Auto 17.3 % (25-40); Mean Corpuscular HGB Conc 35.2 % (30-36); Mean Corpuscular Hemoglobin 31.3 PG (26-34); Mean Corpuscular Volume 88.8 fL (80-100); Monocytes Absolute Auto 400 /uL (0-900); Monocytes Percent Auto 7.2 % (3-14); Neutrophils Absolute Auto 4000 /uL (1500-7000); Neutrophils Percent Auto 73.9 % (50-75); Platelet Count 167 X10^3/uL (150-400); Red Blood Cell Count 2.88 X10^6/uL (4.0-5.2); Red Cell Distribution Width 12.8 % (11.6-14.8); White Blood Cell Count 5.4 X10^3/uL (4.5-11.0)
[2022-10-23 05:53] LABS: Alanine Aminotransferase 205 IU/L (<35); Albumin 3.2 g/dL (3.5-5.0); Albumin Globulin Ratio 1.3 (1.0-2.8); Alkaline Phosphatase 207 U/L (38-126); Aspartate Aminotransferase 119 IU/L (14-36); BUN Creatinine Ratio 12.5 (6-22); Bilirubin Total 0.3 mg/dL (0.2-1.3); Blood Urea Nitrogen 9 mg/dL (7-17); Calcium 8.1 mg/dL (8.4-10.2); Carbon Dioxide 23 mmol/L (22-32); Chloride 108 mmol/L (98-107); Estimated Glomerular Filt Rate > 60 mL/min (>60); Globulin 2.5 g/dL (1.7-4.1); Glucose 98 mg/dL (70-100); HEMOLYSIS < 15 (0-50); Potassium 4.1 mmol/L (3.4-5.1); Sodium 138 mmol/L (137-145); Total Protein 5.7 g/dL (6.3-8.2)
[2022-10-23] MEDS: BUDESONIDE 0.5 MG/2 ML NEB INH ×2 (07:32→19:17)
[2022-10-23] MEDS: ALBUTEROL 2.5 MG/3 ML NEB (ADULT) INH ×2 (07:32→19:17)
[2022-10-23] MEDS: SERTRALINE 50 MG TABLET 100 MG PO (08:42)
[2022-10-23] MEDS: ENOXAPARIN 40 MG/0.4 ML SYRINGE SUBCUT (08:42)
[2022-10-23] MEDS: TACROLIMUS 0.5 MG CAPSULE 2.5 MG PO ×2 (08:42→20:36)
[2022-10-23] MEDS: ACETAMINOPHEN 325 MG TABLET 650 MG PO ×3 (08:49→20:35)
[2022-10-23] MEDS: ONDANSETRON 4 MG/2 ML INJ IV (08:50)
--- NOTE | 2022-10-23 10:49 | P.PN_ITS ---
Subjective Subjective Date Patient Seen: 10/23/22 Time Patient Seen: 10:50 Interval history: C/p of nausea today. Pain has moved to left side. Exam Vital Signs (past 8 hours): - 10/23/22 04:17 10/23/22 07:35 10/23/22 08:00 Temperature 97.7 F 97.5 F L Pulse Rate 89 77 75 Respiratory Rate 18 16 18 Blood Pressure 125/69 116/72 Pulse Oximetry 96 97 99 Oxygen Delivery Method Room Air Oxygen Flow Rate 0 10/23/22 07:00 Temperature Pulse Rate Respiratory Rate Blood Pressure Pulse Oximetry 99 Oxygen Delivery Method Room Air Oxygen Flow Rate 0 Oxygen Delivery Method Room Air Oxygen Flow Rate 0 Narrative Exam Narrative: abdomen is soft with pelvic to left sided tenderness to palpation Objective Labs 10/23/22 05:20 10/23/22 05:20 Labs: Laboratory Results - last 24 hr 10/23/22 10/23/22 05:20 05:20 WBC 5.4 RBC 2.88 L Hgb 9.0 L Hct 25.6 L MCV 88.8 MCH 31.3 MCHC 35.2 RDW 12.8 Plt Count 167 Neut % (Auto) 73.9 Lymph % (Auto) 17.3 L [place] % (Auto) 7.2 Eos % (Auto) 1.3 L Baso % (Auto) 0.3 Neut # (Auto) 4000 Lymph # (Auto) 900 L [place] # (Auto) 400 Eos # (Auto) 100 Baso # (Auto) 0 Sodium 138 Potassium 4.1 Chloride 108 H Carbon Dioxide 23 BUN 9 Creatinine 0.72 Estimated GFR > 60 BUN/Creatinine Ratio 12.5 Glucose 98 Calcium 8.1 L Total Bilirubin 0.3 AST 119 H ALT 205 H Alkaline Phosphatase 207 H Total Protein 5.7 L Albumin 3.2 L Globulin 2.5 Albumin/Globulin Ratio 1.3 PFSH Medical History Alcoholic hepatitis Alcoholism in remission Allergic rhinitis Asthma Bipolar disorder Bruises easily Chronic migraine Chronic renal failure, stage 3a Cirrhosis Diverticular disease of colon Dizziness Duodenal ulcer (09/2009) Esophageal varices Esophageal varices in alcoholic cirrhosis Former smoker Gastric antral vascular ectasia (~11/2019) Gastro-esophageal reflux (12/31/10) History of UTI Major depressive disorder, recurrent, moderate (12/31/10) Seizure (~07/11/18) Seizure disorder Surgical History History of cholecystectomy Liver transplant status (12/01/19) S/P liver transplant (12/01/19) Status post endoscopy (09/2009) Family History Other Alcoholism Asthma Social History household members: significant other Smoking Status: Former smoker alcohol intake: former Assessment & Plan Assessment & Plan narrative: Clinically stable, LFTs improved Nausea could be side effect of Flagyl. Plan: Switch to po antibiotics, drop the flagyl after 48 hrs is nausea persist. Scopalamine patch for nausea I would like to repeat her CT scan prior to discharge to be certain no progression exist in the diverticulitis. Time Spent With Patient Time with patient: 30 to 49 minutes with 50% spent counseling/coordinating care Quality VTE Deep Vein Thrombosis/Pulmonary Embolism Present on Admission: No
[2022-10-23] MEDS: SCOPOLAMINE 1 PATCH TOP (11:08)
--- NOTE | 2022-10-23 11:49 | PM.PN.1 ---
Subjective Subjective Date Patient Seen: 10/23/22 Time Patient Seen: 11:50 Interval history: Patient seen in follow-up of abdominal pain. Overall had a pretty bad episode of vomiting this morning. No other changes. Still having a moderate amount of pain. Feels like it is moved more down into the left lower quadrant. But still is diffuse. Otherwise no change or complaints. No fevers no chills. Not hungry. Exam Vital Signs (past 8 hours): - 10/23/22 04:17 10/23/22 07:35 10/23/22 08:00 Temperature 97.7 F 97.5 F L Pulse Rate 89 77 75 Respiratory Rate 18 16 18 Blood Pressure 125/69 116/72 Pulse Oximetry 96 97 99 Oxygen Delivery Method Room Air Oxygen Flow Rate 0 10/23/22 07:00 Temperature Pulse Rate Respiratory Rate Blood Pressure Pulse Oximetry 99 Oxygen Delivery Method Room Air Oxygen Flow Rate 0 Oxygen Delivery Method Room Air Oxygen Flow Rate 0 Narrative Exam Narrative: Alert female lying in bed less anxious this morning than yesterday. Skin without jaundice. Lungs are clear heart is regular rate and rhythm abdomen is soft mild bowel sounds. Diffuse tenderness no hepatosplenomegaly or tenderness. Worse in the left lower quadrant with pretty significant tenderness and rebound. Extremities normal. Objective Labs 10/23/22 05:20 10/23/22 05:20 Labs: Laboratory Results - last 24 hr 10/23/22 10/23/22 05:20 05:20 WBC 5.4 RBC 2.88 L Hgb 9.0 L Hct 25.6 L MCV 88.8 MCH 31.3 MCHC 35.2 RDW 12.8 Plt Count 167 Neut % (Auto) 73.9 Lymph % (Auto) 17.3 L [place] % (Auto) 7.2 Eos % (Auto) 1.3 L Baso % (Auto) 0.3 Neut # (Auto) 4000 Lymph # (Auto) 900 L [place] # (Auto) 400 Eos # (Auto) 100 Baso # (Auto) 0 Sodium 138 Potassium 4.1 Chloride 108 H Carbon Dioxide 23 BUN 9 Creatinine 0.72 Estimated GFR > 60 BUN/Creatinine Ratio 12.5 Glucose 98 Calcium 8.1 L Total Bilirubin 0.3 AST 119 H ALT 205 H Alkaline Phosphatase 207 H Total Protein 5.7 L Albumin 3.2 L Globulin 2.5 Albumin/Globulin Ratio 1.3 PFSH Medical History Alcoholic hepatitis Alcoholism in remission Allergic rhinitis Asthma Bipolar disorder Bruises easily Chronic migraine Chronic renal failure, stage 3a Cirrhosis Diverticular disease of colon Dizziness Duodenal ulcer (09/2009) Esophageal varices Esophageal varices in alcoholic cirrhosis Former smoker Gastric antral vascular ectasia (~11/2019) Gastro-esophageal reflux (12/31/10) History of UTI Major depressive disorder, recurrent, moderate (12/31/10) Seizure (~07/11/18) Seizure disorder Surgical History History of cholecystectomy Liver transplant status (12/01/19) S/P liver transplant (12/01/19) Status post endoscopy (09/2009) Family History Other Alcoholism Asthma Social History household members: significant other Smoking Status: Former smoker alcohol intake: former Assessment & Plan Assessment & Plan narrative: Left lower quadrant abdominal pain. Diverticular abscess. Otherwise no changes. White count is improved. No fevers. Persistent nausea. Maybe secondary to Flagyl. Could switch to Unasyn if we need to. Pretty significantly tender still. I do not know if it is really change. Surgeons are wanting to get CT scan maybe tomorrow. Will see how that goes. Otherwise will back diet off to clear liquids restart fluids and re-evaluate in a.m.. Patient understands long discussion with her about process she understands questions answered Hepatitis. Slightly improved today. Certainly no symptoms. Will repeat labs tomorrow make sure continues to improve. No evidence of infection. History of liver transplant. Continue her tacrolimus. She seems to be doing well. I think hepatitis is improving and hopefully this is just secondary to the infection and will follow. History of depression continue usual meds. History of alcohol abuse sober. Seems to have great attitude will follow History of asthma stable. DVT prophylaxis Lovenox GI prophylaxis think she is stable at this time Code status full. Disposition. We will see what we exam is tomorrow how she feels tomorrow. Continue antibiotics for now. Hopefully can advance diet tomorrow no nausea is improved will see what CT scan shows based on surgery. Questions answered I suspect it will be a few more days but will see. Quality VTE Deep Vein Thrombosis/Pulmonary Embolism Present on Admission: No
[2022-10-23] MEDS: metroNIDAZOLE 500 MG TABLET PO ×3 (13:03→20:37)
[2022-10-23] MEDS: TRAZODONE 50 MG TABLET PO (20:36)
[2022-10-23] MEDS: CIPROFLOXACIN 250 MG TABLET 500 MG PO (20:37)
[2022-10-24 05:00] VITALS: BP 124/75; PULSE 58; RESP 16; TEMP 36.9; O2SAT 96
[2022-10-24] MEDS: ACETAMINOPHEN 325 MG TABLET 650 MG PO (05:09)
[2022-10-24] MEDS: LACTATED RINGERS 1,000 ML 125 ML IV (05:09)
--- NOTE | 2022-10-24 07:02 | DI.CT.S_ITS ---
PROCEDURE: CT ABDOMEN PELVIS W CON INDICATIONS: pelvic abscess TECHNIQUE: After the administration of IV contrast, axial sections were acquired from the lung bases to the pubic symphysis. Coronal and sagittal reformats were performed. For radiation dose reduction, the following was used: automated exposure control, adjustment of mA and/or kV according to patient size. COMPARISON: [facility], CT, CT ABDOMEN PELVIS W CON, 10/21/2022, 12:12. FINDINGS: Image quality: Excellent. Lung bases: Unremarkable. Heart: No significant findings. ABDOMEN: Liver: Notable for prior liver transplant. Otherwise, unremarkable. Gallbladder: Removed. Biliary ducts: Unremarkable. Pancreas: Unremarkable. Spleen: Unremarkable. Adrenal Glands: Unremarkable. Kidneys and Ureters: Unremarkable. Stomach and Bowel: Stomach, small bowel loops, and colon are nonobstructive. Colonic diverticula are present predominantly within the left colon. Previous right pelvic abscess on series 2, image 73 is unchanged. As previously identified on series 2, image 68 within the right pelvis there is amorphous ill-defined area of soft tissue density interposed between thickened bowel loops with diverticula. There is marked luminal narrowing within this region overall appearance is relatively unchanged. Peritoneum: No free air. Ventral Wall: No hernia. Abdominal Nodes: No retroperitoneal or mesenteric adenopathy by size criteria. Vessels: Aorta and inferior vena cava are normal in size. PELVIS: Pelvic Organs: Unremarkable. Bladder: Unremarkable. Pelvic Nodes: No enlarged lymph nodes. Miscellaneous: No inguinal hernias are seen. Bones: Thoracolumbar degenerative changes. IMPRESSION: Stable appearance of right lower pelvic fluid collection most suggestive of abscess/phlegmon compared to prior exam. Stable appearance of amorphous appearance of thickening interposed between thickened diverticulum bowel loops in the right lower pelvis. As previously noted, this could represent a diverticular phlegmon/abscess. However, malignancy cannot be excluded and colonoscopy is recommended for further evaluation. Dictated by: Anabel Alcala M.D. on 10/24/2022 at 9:11 Approved by: Anabel Alcala M.D. on 10/24/2022 at 9:18
[2022-10-24] MEDS: CIPROFLOXACIN 250 MG TABLET 500 MG PO (07:25)
--- NOTE | 2022-10-24 07:37 | P.PN_ITS ---
Subjective Subjective Date Patient Seen: 10/24/22 Time Patient Seen: 07:37 Interval history: Patient's hospital course thus far reviewed with Dr. Raymond Patient with what appears to be uncomplicated diverticulitis with possible abscess after perforation etcetera. Also bump in LFTs with her infection it appears. Switched off of parental antibiotics to oral antibiotics yesterday by General surgery, who also ordered a CT scan for this morning. No blood work was ordered for this morning Patient also with a bit more anemia than is baseline for her as well. This morning patient says she is feeling a lot better. She is having to urinate frequently with the IV fluids ongoing. Is eating satisfactorily Exam Vital Signs (past 8 hours): - 10/24/22 05:00 Temperature 98.5 F Pulse Rate 58 L Respiratory Rate 16 Blood Pressure 124/75 Pulse Oximetry 96 Oxygen Flow Rate 0 Oxygen Delivery Method Room Air Oxygen Flow Rate 0 Objective Labs 10/23/22 05:20 10/23/22 05:20 [facility] Medical History Alcoholic hepatitis Alcoholism in remission Allergic rhinitis Asthma Bipolar disorder Bruises easily Chronic migraine Chronic renal failure, stage 3a Cirrhosis Diverticular disease of colon Dizziness Duodenal ulcer (09/2009) Esophageal varices Esophageal varices in alcoholic cirrhosis Former smoker Gastric antral vascular ectasia (~11/2019) Gastro-esophageal reflux (12/31/10) History of UTI Major depressive disorder, recurrent, moderate (12/31/10) Seizure (~07/11/18) Seizure disorder Surgical History History of cholecystectomy Liver transplant status (12/01/19) S/P liver transplant (12/01/19) Status post endoscopy (09/2009) Family History Other Alcoholism Asthma Social History household members: significant other Smoking Status: Former smoker alcohol intake: former Assessment & Plan Assessment & Plan narrative: 1. Complicated diverticulitis in a [id number] on oral antibiotics. I am pleased that she is feeling tremendously better. I would have thought perhaps a bit longer with parental antibiotics would be appropriate but we are going to obtain imaging this morning as per General surgery. Further management and care of this complicated diverticulitis will be as per General surgery, since they seem to have taken the lead in treatment 2. Status post liver transplant-bump in LFTs likely secondary to the burden of infection as below. Numbers are coming down. No evidence of any further complication. Continue patient's tacrolimus. 3. Chronic anemia-patient chronically anemic a numbers are slightly lower likely secondary to fluid shifts etcetera. No evidence of any large volume bleeding etcetera. No reason for further evaluation in my opinion at this time 4. Alcohol use disorder-patient continues sober and has done very well in this regard. This is to her credit. Overall patient appears to be improved but given the potential for serious complications with above she will likely need additional 24-48 hours of hospitalization given the complicated nature of her presentation etcetera. Quality VTE Deep Vein Thrombosis/Pulmonary Embolism Present on Admission: No
[2022-10-24 08:00] VITALS: BP 132/76; PULSE 59; RESP 16; TEMP 36.6; O2SAT 93
--- NOTE | 2022-10-24 08:29 | PC.NURSE ---
Assess- Patient is alert and oriented x4, she denies pain or discomfort. Down to scan in wheel chair. Breakfast will be served when she gets back. BT active x 4 quadrants.
[2022-10-24] MEDS: TACROLIMUS 0.5 MG CAPSULE 2.5 MG PO (09:03)
[2022-10-24] MEDS: ENOXAPARIN 40 MG/0.4 ML SYRINGE SUBCUT (09:03)
[2022-10-24] MEDS: SERTRALINE 50 MG TABLET 100 MG PO (09:03)
[2022-10-24] MEDS: metroNIDAZOLE 500 MG TABLET PO (09:03)
[2022-10-24] MEDS: ALBUTEROL 2.5 MG/3 ML NEB (ADULT) INH (09:13)
[2022-10-24] MEDS: BUDESONIDE 0.5 MG/2 ML NEB INH (09:14)
--- NOTE | 2022-10-24 10:24 | PM.CALLCOV.1 ---
Call Coverage Note Note Date of Patient Contact: 10/24/22 Narrative of Care Provided: No progress on infection on CT and clinical response is good. OK for discharge on 10 days of antibiotcs Cipro/flagyl. Needs colonoscopy in 6-8 weeks to evaluate for possible colon mass.
--- NOTE | 2022-10-24 11:16 | PM.PN.1 ---
Subjective Subjective Date Patient Seen: 10/24/22 Time Patient Seen: 11:17 Interval history: Wants to go home. Nausea is associated with the flagyl Exam Vital Signs (past 8 hours): - 10/24/22 05:00 10/24/22 08:19 10/24/22 08:00 Temperature 98.5 F 97.8 F Pulse Rate 58 L 59 L Respiratory Rate 16 16 Blood Pressure 124/75 132/76 Pulse Oximetry 96 93 Oxygen Delivery Method Room Air Oxygen Flow Rate 0 Oxygen Delivery Method Room Air Oxygen Flow Rate 0 Narrative Exam Narrative: abdomen is benign, CT scan reviewed and there is no progression of infection. Objective Labs 10/23/22 05:20 10/23/22 05:20 [facility] Medical History Alcoholic hepatitis Alcoholism in remission Allergic rhinitis Asthma Bipolar disorder Bruises easily Chronic migraine Chronic renal failure, stage 3a Cirrhosis Diverticular disease of colon Dizziness Duodenal ulcer (09/2009) Esophageal varices Esophageal varices in alcoholic cirrhosis Former smoker Gastric antral vascular ectasia (~11/2019) Gastro-esophageal reflux (12/31/10) History of UTI Major depressive disorder, recurrent, moderate (12/31/10) Seizure (~07/11/18) Seizure disorder Surgical History History of cholecystectomy Liver transplant status (12/01/19) S/P liver transplant (12/01/19) Status post endoscopy (09/2009) Family History Other Alcoholism Asthma Social History household members: significant other Smoking Status: Former smoker alcohol intake: former Assessment & Plan Assessment & Plan narrative: Perforated diverticulitis responding to antibiotics alone Nausea from Flagyl Plan: stop Flagyl Needs diagnostic colonoscopy in 6-8 weeks to rule out colon mass, has never had a colonoscopy Ok to discharge home with 10 days cipro Time Spent With Patient Time with patient: 30 to 49 minutes with 50% spent counseling/coordinating care Quality VTE Deep Vein Thrombosis/Pulmonary Embolism Present on Admission: No
--- NOTE | 2022-10-24 12:07 | P.DS_ITS ---
History of Present Illness History of Present Illness Date Patient Seen: 10/24/22 Time Patient Seen: 12:07 Chief complaint: abdominal pain, hx of diverticulitis Narrative: Patient is a 46-year-old female with history of liver transplant 3 years ago who presents with abdominal pain starting .? Patient states had mostly left lower quadrant pain with some nausea and vomiting.? No radiation.? Should did not have any fever but had chills.? Pain was quite severe.? Seem to radiate to her back.? But no other changes.? She is had no blood in her stool but has noted a little bit of diarrhea which started at that time.? Decreased appetite.? She i s had no right upper quadrant pain or other changes.? Energy level has been down.? ? Otherwise has been feeling good.? No history of trauma.? Sees her transplant team on a yearly basis.? But otherwise has no changes. Patient has a similar episode back in December of 2021.? Treated with oral antibiotics.? No other change. {from Dr. Raymond's H&P 10/22/22} Discharge Providers Provider Date of admission: 10/21/22 19:13 Discharge Date: 10/24/22 Primary care physician: Nahum Oakley MD Consults: 10/21/22 17:10 Consult to General Surgery Stat Comment: Consulting Provider: Desi Horowitz Reason for consultation: Complicated diverticulitis, may need colonoscopy for biopsy Has provider been notified: Yes Discharge provider: Nahum Oakley MD Summary Hospital Course Discharge Diagnosis: 1. Complicated diverticulitis with sigmoid phlegmon/abscess 2. Status post liver transplant 3. Chronic anemia 4. Asthma 5. Chronic renal failure stage 3 a Hospital Course: Patient presented to the ER as above. ER evaluation demonstrated probable early abscess versus phlegmon formation in the pelvis as described in imaging notes. She had her case discussed with transplant team and with the surgery team at the [facility] where she had her liver transplant performed. They did not believe she required transfer to their facility This was also discussed with General surgery at [facility] who did not feel like patient need to be admitted to the surgery service so she was admitted to the medicine service. She was placed on parental antibiotic therapy for diverticulitis Patient had a slow but steady improvement in her overall level of pain and discomfort. She was initially kept on a limited diet but this was advanced She was seen in consultation by General surgery who switched her to oral antibiotic therapy after approximately 48 hours of parental antibiotic therapy. Repeat imaging demonstrated no change or worsening in her fluid collection/phlegmon/abscess Patient was clinically much improved and general surgery felt STRONGLY that patient could be discharged home on oral antibiotic therapy at that point Patient also had a bump in her LFTs thought to be secondary to her systemic infection. These numbers were improving prior to discharge and will be followed up as an outpatient. There is no evidence of any intrinsic intra-abdominal pathology that would otherwise explain her abnormal LFTs Status at Discharge Cognitive/behavioral status at discharge: at baseline, oriented Functional status at discharge: independent ambulation Overall status at discharge: patient is progressing back to baseline Exam Vital Signs (past 8 hours): - 10/24/22 05:00 10/24/22 08:19 10/24/22 08:00 Temperature 98.5 F 97.8 F Pulse Rate 58 L 59 L Respiratory Rate 16 16 Blood Pressure 124/75 132/76 Pulse Oximetry 96 93 Oxygen Delivery Method Room Air Oxygen Flow Rate 0 Oxygen Delivery Method Room Air Oxygen Flow Rate 0 Objective Labs 10/23/22 05:20 10/23/22 05:20 [facility] Medical History Alcoholic hepatitis Alcoholism in remission Allergic rhinitis Asthma Bipolar disorder Bruises easily Chronic migraine Chronic renal failure, stage 3a Cirrhosis Diverticular disease of colon Dizziness Duodenal ulcer (09/2009) Esophageal varices Esophageal varices in alcoholic cirrhosis Former smoker Gastric antral vascular ectasia (~11/2019) Gastro-esophageal reflux (12/31/10) History of UTI Major depressive disorder, recurrent, moderate (12/31/10) Seizure (~07/11/18) Seizure disorder Surgical History History of cholecystectomy Liver transplant status (12/01/19) S/P liver transplant (12/01/19) Status post endoscopy (09/2009) Family History Other Alcoholism Asthma Social History household members: significant other Smoking Status: Former smoker alcohol intake: former Discharge Plan Discharge Plan Patient Disposition: Home Discharge orders & Medications Prescriptions: Continued budesonide-formoterol [Symbicort] 160-4.5 mcg/actuation HFA aerosol inhaler 2 puff inhalation QID Qty: 91.8 3RF Rx Instructions: 2 PUFFS EVERY 4 HOURS FOR WHEEZING AND SHORTNESS OF BREATH trazodone 50 mg tablet 50 mg PO BEDTIME PRN (Reason: insomnia) Qty: 90 1RF fluticasone propion-salmeterol [Advair Diskus] 500-50 mcg/dose blister with device 1 inh inhalation BID Qty: 60 3RF Rx Instructions: ADVAIR DISKUS 500/50MCG (RED) 60S INHALE 1 PUFF INTO THE LUNGS TWICE DAILY ciprofloxacin HCl 500 mg tablet 500 mg PO BID 10 Days Qty: 20 0RF metronidazole 500 mg tablet 500 mg PO TID 10 Days Qty: 30 0RF acetaminophen 500 mg tablet 1,000 mg PO Q4-6H PRN (Reason: fever or pain) nortriptyline 25 mg capsule 25 mg PO BEDTIME sertraline 100 mg tablet 100 mg PO DAILY Adult Multivitamin Gummies 200 mcg Tablet,Chewable 1 tab PO DAILY tacrolimus 1 mg capsule 2.5 mg PO BID Follow up/Referrals: Nahum Oakley MD [Primary Care Provider] - 1 Week Discharge Health Status Multidrug resistant organism: No MDRO Diet/Activity/Treatments Diet: Diet as Tolerated Visit Report/Discharge Packet Stand Alone Forms: Patient Portal/API Discharge Data Primary Care Provider: Nahum Oakley Quality VTE Deep Vein Thrombosis/Pulmonary Embolism Present on Admission: No
--- NOTE | 2022-10-24 13:11 | CM.DPC ---
DCP Discharge Home Per MD, pt had CT scan today and returned without concern for worsening condition and per Surgeon Consult pt was switched to oral abx and diet was able to be advanced and tolerated and pt medically stable to d/c home today with no identified barriers to discharge. Per RN, pt has been ambulating halls with spouse and d/c instructions will be given for plan of discharge this afternoon. Plan: Patient to d/c home via spouse POV today and oral abx and outpt follow up with PCP and Surgeon. No further SW needs at this time. BRETT Guo
[2022-10-25 13:48] LABS: Tacrolimus 8.1
== END 2022-10-24 14:53 | disposition home or self-care (01) | DRG 244 ==
LOC: ED 18:38 → AC 19:13
PROVIDERS: Nurse Practitioner Critical Care Medicine; Admitting Provider Family Medicine; Emergency Provider Emergency Medicine; PCP Internal Medicine; Referring Provider Emergency Medicine; Visit Provider Internal Medicine
DX: K57.20 Diverticulitis of large intestine with perforation and abscess without bleeding (principal); F32.A Depression, unspecified; J45.909 Unspecified asthma, uncomplicated; K75.9 Inflammatory liver disease, unspecified; R11.0 Nausea; N73.9 Female pelvic inflammatory disease, unspecified; Z87.891 Personal history of nicotine dependence; Z94.4 Liver transplant status
CPT/HCPCS: 36415; 74177; 80053; 80197; 81003; 81015; 83605; 83690; 85025; 87077; 87086; 87186; 87635; 94640; 96365; 96375; 99231; 99232; 99238; 99284; 99285; C9803; J0696; J1170; J1650; J1885; J2405; J7507; J7613; Q9967

== ENCOUNTER → 2022-10-28 08:12 | Outpatient (CLI) | payer OTHER, MEDICAID, SELFPAY ==
[2022-10-21 20:05] VITALS: BMI 26.9
[2022-10-28 09:07] LABS: Add Manual Diff / Slide Review NO; Basophils Absolute Auto 0 /uL (0-100); Basophils Percent Auto 0.7 % (0-2); Eosinophils Absolute Auto 100 /uL (0-450); Eosinophils Percent Auto 2.1 % (2-4); Hematocrit 30.3 % (36-46); Hemoglobin 10.8 g/dL (12.0-16.0); Lymphocytes Absolute Auto 1400 /uL (1100-4500); Lymphocytes Percent Auto 20.1 % (25-40); Mean Corpuscular HGB Conc 35.7 % (30-36); Mean Corpuscular Hemoglobin 31.3 PG (26-34); Mean Corpuscular Volume 87.6 fL (80-100); Monocytes Absolute Auto 700 /uL (0-900); Monocytes Percent Auto 9.5 % (3-14); Neutrophils Absolute Auto 4800 /uL (1500-7000); Neutrophils Percent Auto 67.6 % (50-75); Platelet Count 274 X10^3/uL (150-400); Red Blood Cell Count 3.46 X10^6/uL (4.0-5.2); Red Cell Distribution Width 12.7 % (11.6-14.8); White Blood Cell Count 7.1 X10^3/uL (4.5-11.0)
[2022-10-28 09:30] LABS: INR 1.2 (0.9-1.3); Prothrombin Time 14.3 SECONDS (10.1-12.7)
[2022-10-28 09:49] LABS: Alanine Aminotransferase 79 IU/L (<35); Albumin 4.1 g/dL (3.5-5.0); Albumin Globulin Ratio 1.7 (1.0-2.8); Alkaline Phosphatase 138 U/L (38-126); Aspartate Aminotransferase 46 IU/L (14-36); BUN Creatinine Ratio 14.1 (6-22); Bilirubin Total 0.4 mg/dL (0.2-1.3); Bilirubin Unconjugated 0.1 mg/dL (0.0-1.1); Blood Urea Nitrogen 18 mg/dL (7-17); Calcium 9.1 mg/dL (8.4-10.2); Carbon Dioxide 21 mmol/L (22-32); Chloride 99 mmol/L (98-107); Estimated Glomerular Filt Rate 52 mL/min (>60); Gamma Glutamyl Transpeptidase 78 U/L (12-43); Globulin 2.4 g/dL (1.7-4.1); Glucose 113 mg/dL (70-100); HEMOLYSIS < 15 (0-50); Magnesium 1.3 mg/dL (1.6-2.3); Phosphorous 4.3 mg/dL (2.5-4.5); Potassium 4.6 mmol/L (3.4-5.1); Sodium 129 mmol/L (137-145); Total Protein 6.5 g/dL (6.3-8.2)
[2022-11-01 13:46] LABS: Tacrolimus 9.7
== END ==
PROVIDERS: PCP Internal Medicine; Referring Provider Internal Medicine Gastroenterology; Visit Provider Internal Medicine Gastroenterology
DX: E55.9 Vitamin D deficiency, unspecified (principal); Z94.4 Liver transplant status; Z48.298 Encounter for aftercare following other organ transplant; Z79.899 Other long term (current) drug therapy
CPT/HCPCS: 36415; 80048; 80076; 80197; 82977; 83735; 84100; 85025; 85610

== ENCOUNTER → 2022-11-04 08:18 | Outpatient (CLI) | payer OTHER, MEDICAID, SELFPAY ==
[2022-10-21 20:05] VITALS: BMI 26.9
[2022-11-04 09:15] LABS: Add Manual Diff / Slide Review NO; Basophils Absolute Auto 0 /uL (0-100); Basophils Percent Auto 0.9 % (0-2); Eosinophils Absolute Auto 100 /uL (0-450); Eosinophils Percent Auto 2.8 % (2-4); Hematocrit 29.9 % (36-46); Hemoglobin 10.7 g/dL (12.0-16.0); Lymphocytes Absolute Auto 1400 /uL (1100-4500); Lymphocytes Percent Auto 27.7 % (25-40); Mean Corpuscular HGB Conc 35.9 % (30-36); Mean Corpuscular Hemoglobin 31.7 PG (26-34); Mean Corpuscular Volume 88.4 fL (80-100); Monocytes Absolute Auto 400 /uL (0-900); Monocytes Percent Auto 8.7 % (3-14); Neutrophils Absolute Auto 3100 /uL (1500-7000); Neutrophils Percent Auto 59.9 % (50-75); Platelet Count 266 X10^3/uL (150-400); Red Blood Cell Count 3.39 X10^6/uL (4.0-5.2); Red Cell Distribution Width 13.1 % (11.6-14.8); White Blood Cell Count 5.1 X10^3/uL (4.5-11.0)
[2022-11-04 09:25] LABS: Alanine Aminotransferase 33 IU/L (<35); Albumin 4.3 g/dL (3.5-5.0); Albumin Globulin Ratio 1.7 (1.0-2.8); Alkaline Phosphatase 88 U/L (38-126); Aspartate Aminotransferase 27 IU/L (14-36); BUN Creatinine Ratio 18.4 (6-22); Bilirubin Total 0.4 mg/dL (0.2-1.3); Bilirubin Unconjugated 0.3 mg/dL (0.0-1.1); Blood Urea Nitrogen 18 mg/dL (7-17); Calcium 9.4 mg/dL (8.4-10.2); Carbon Dioxide 21 mmol/L (22-32); Chloride 101 mmol/L (98-107); Estimated Glomerular Filt Rate > 60 mL/min (>60); Gamma Glutamyl Transpeptidase 55 U/L (12-43); Globulin 2.5 g/dL (1.7-4.1); Glucose 102 mg/dL (70-100); HEMOLYSIS < 15 (0-50); Magnesium 1.5 mg/dL (1.6-2.3); Phosphorous 4.5 mg/dL (2.5-4.5); Potassium 4.7 mmol/L (3.4-5.1); Sodium 132 mmol/L (137-145); Total Protein 6.8 g/dL (6.3-8.2)
[2022-11-04 09:31] LABS: INR 1.1 (0.9-1.3); Prothrombin Time 12.6 SECONDS (10.1-12.7)
== END ==
PROVIDERS: PCP Internal Medicine; Referring Provider Internal Medicine Gastroenterology; Visit Provider Internal Medicine Gastroenterology
DX: Z48.298 Encounter for aftercare following other organ transplant (principal); Z94.4 Liver transplant status; Z79.899 Other long term (current) drug therapy
CPT/HCPCS: 36415; 80048; 80076; 80197; 82977; 83735; 84100; 85025; 85610

== ENCOUNTER → 2022-11-11 09:25 | Outpatient (CLI) | payer OTHER, MEDICAID, SELFPAY ==
[2022-10-21 20:05] VITALS: BMI 26.9
[2022-11-11 11:11] LABS: Clostridium Difficile Tox PCR Positive for C. diff (Negative)
[2022-11-13 16:46] LABS: C difficie Toxins A and B, EIA Positive (Negative)
== END ==
PROVIDERS: PCP Internal Medicine; Referring Provider Internal Medicine; Visit Provider Internal Medicine
DX: R19.7 Diarrhea, unspecified (principal)
CPT/HCPCS: 87324; 87493

== ENCOUNTER → 2022-11-18 07:39 | Outpatient (CLI) | payer OTHER, MEDICAID, SELFPAY ==
[2022-10-21 20:05] VITALS: BMI 26.9
[2022-11-18 09:00] LABS: INR 1.1 (0.9-1.3); Prothrombin Time 12.3 SECONDS (10.1-12.7)
[2022-11-18 09:06] LABS: Hematocrit 30.1 % (36-46); Hemoglobin 10.6 g/dL (12.0-16.0); Mean Corpuscular HGB Conc 35.2 % (30-36); Mean Corpuscular Hemoglobin 30.6 PG (26-34); Mean Corpuscular Volume 86.8 fL (80-100); Platelet Count 258 X10^3/uL (150-400); Red Blood Cell Count 3.47 X10^6/uL (4.0-5.2); Red Cell Distribution Width 12.8 % (11.6-14.8)
[2022-11-18 09:10] LABS: Alanine Aminotransferase 27 IU/L (<35); Albumin 4.2 g/dL (3.5-5.0); Albumin Globulin Ratio 1.6 (1.0-2.8); Alkaline Phosphatase 81 U/L (38-126); Aspartate Aminotransferase 25 IU/L (14-36); BUN Creatinine Ratio 11.3 (6-22); Bilirubin Total 0.3 mg/dL (0.2-1.3); Bilirubin Unconjugated 0.1 mg/dL (0.0-1.1); Blood Urea Nitrogen 9 mg/dL (7-17); Calcium 9.6 mg/dL (8.4-10.2); Carbon Dioxide 23 mmol/L (22-32); Chloride 94 mmol/L (98-107); Estimated Glomerular Filt Rate > 60 mL/min (>60); Gamma Glutamyl Transpeptidase 37 U/L (12-43); Globulin 2.6 g/dL (1.7-4.1); Glucose 103 mg/dL (70-100); HEMOLYSIS < 15 (0-50); Magnesium 1.3 mg/dL (1.6-2.3); Phosphorous 4.4 mg/dL (2.5-4.5); Potassium 4.4 mmol/L (3.4-5.1); Sodium 128 mmol/L (137-145); Total Protein 6.8 g/dL (6.3-8.2)
[2022-11-18 09:28] LABS: Add Manual Diff / Slide Review YES
[2022-11-18 09:49] LABS: Neutrophils Absolute Manual 4830 /uL (3000-5900); Total Cells Counted 100
[2022-11-18 09:50] LABS: Toxic Granulation Present
[2022-11-18 09:52] LABS: Anisocytosis 1+
[2022-11-23 11:40] LABS: Tacrolimus 9.9
== END ==
PROVIDERS: PCP Internal Medicine; Referring Provider Internal Medicine Gastroenterology; Visit Provider Internal Medicine Gastroenterology
DX: Z94.4 Liver transplant status (principal); Z79.899 Other long term (current) drug therapy; Z48.298 Encounter for aftercare following other organ transplant
CPT/HCPCS: 36415; 80048; 80076; 80197; 82977; 83735; 84100; 85007; 85025; 85610

== ENCOUNTER → 2022-11-29 09:56 | Outpatient (CLI) | payer OTHER, MEDICAID, SELFPAY ==
[2022-10-21 20:05] VITALS: BMI 26.9
--- NOTE | 2022-11-29 11:11 | DI.CT.S_ITS ---
PROCEDURE: CT ABDOMEN PELVIS W CON INDICATIONS: diverticular abcess TECHNIQUE: After the administration of intravenous contrast, axial sections acquired from the lung bases to the pubic symphysis. Coronal and sagittal reformats were performed. For radiation dose reduction, the following was used: automated exposure control, adjustment of mA and/or kV according to patient size. COMPARISON: [facility], CT, CT ABDOMEN PELVIS W CON, 10/24/2022, 8:24. FINDINGS: Image quality: Good Lower chest: Unremarkable lung bases. There are few periesophageal varices. Normal heart size. Solid organs: The liver is unremarkable. Liver transplant changes. Gallbladder is absent. Similar prominent biliary system and diameter around the anastomoses. Similar appearance of the pancreatic duct in the head, which is mildly prominent. No ductal dilation at the body. No splenomegaly. No adrenal nodules. Unchanged tiny nodularity adjacent to the left adrenal again seen, unchanged. No hydronephrosis. Vessels and lymph nodes: No abdominal aortic aneurysm. No pathologic lymph nodes by size criteria. Bowel and peritoneum: No evidence of small bowel obstruction. There is no drainable abscess. Previous phlegmon and fat stranding along the right pelvis and peritoneal reflection, adjacent to the distal sigmoid colon, has decreased. Colonic diverticula, without active inflammation on this study. Normal diameter appendix. Above average fecal loading. Body wall: Postsurgical changes Pelvis: Bladder is unremarkable. Similar appearance of the reproductive organs, likely physiologic for age, not well evaluated on CT. Bones: No acute or suspicious osseous finding. There are degenerative changes. IMPRESSION: Decreased inflammation and fluid related to previous distal sigmoid diverticulitis and adjacent phlegmon. Consider colonoscopy follow-up if not already obtained. Other findings as above. Dictated by: Dewayne Mariscal M.D. on 11/29/2022 at 13:48 Approved by: Dewayne Mariscal M.D. on 11/29/2022 at 13:55
== END ==
PROVIDERS: PCP Internal Medicine; Referring Provider Internal Medicine; Visit Provider Internal Medicine
DX: K57.20 Diverticulitis of large intestine with perforation and abscess without bleeding (principal); Z94.4 Liver transplant status
CPT/HCPCS: 74177; Q9967

== ENCOUNTER → 2022-12-01 15:58 | Outpatient (CLI) | payer OTHER, MEDICAID, SELFPAY ==
[2022-10-21 20:05] VITALS: BMI 26.9
[2022-12-01 22:05] LABS: Clostridium Difficile Tox PCR Positive for C. diff (Negative)
[2022-12-05 11:40] LABS: C difficie Toxins A and B, EIA Positive (Negative)
== END ==
PROVIDERS: PCP Internal Medicine; Referring Provider Internal Medicine; Visit Provider Internal Medicine
DX: R19.7 Diarrhea, unspecified (principal)
CPT/HCPCS: 87324; 87493

== ENCOUNTER → 2022-12-12 08:06 | Outpatient (CLI) | payer OTHER, MEDICAID, SELFPAY ==
[2022-10-21 20:05] VITALS: BMI 26.9
[2022-12-12 08:56] LABS: Hematocrit 33.4 % (36-46); Hemoglobin 11.6 g/dL (12.0-16.0); Mean Corpuscular HGB Conc 34.6 % (30-36); Mean Corpuscular Hemoglobin 30.4 PG (26-34); Mean Corpuscular Volume 87.8 fL (80-100); Platelet Count 344 X10^3/uL (150-400); Red Blood Cell Count 3.81 X10^6/uL (4.0-5.2); Red Cell Distribution Width 13.3 % (11.6-14.8); White Blood Cell Count 8.6 X10^3/uL (4.5-11.0)
[2022-12-12 08:58] LABS: Add Manual Diff / Slide Review YES
[2022-12-12 08:59] LABS: INR 1.1 (0.9-1.3); Prothrombin Time 12.8 SECONDS (10.1-12.7)
[2022-12-12 09:05] LABS: Alanine Aminotransferase 23 IU/L (<35); Albumin 4.5 g/dL (3.5-5.0); Albumin Globulin Ratio 1.5 (1.0-2.8); Alkaline Phosphatase 73 U/L (38-126); Aspartate Aminotransferase 25 IU/L (14-36); BUN Creatinine Ratio 24.7 (6-22); Bilirubin Total 0.6 mg/dL (0.2-1.3); Bilirubin Unconjugated 0.4 mg/dL (0.0-1.1); Blood Urea Nitrogen 19 mg/dL (7-17); Calcium 9.7 mg/dL (8.4-10.2); Carbon Dioxide 23 mmol/L (22-32); Chloride 96 mmol/L (98-107); Estimated Glomerular Filt Rate > 60 mL/min (>60); Gamma Glutamyl Transpeptidase 27 U/L (12-43); Glucose 119 mg/dL (70-100); HEMOLYSIS < 15 (0-50); Magnesium 1.4 mg/dL (1.6-2.3); Phosphorous 4.2 mg/dL (2.5-4.5); Potassium 4.8 mmol/L (3.4-5.1); Sodium 129 mmol/L (137-145); Total Protein 7.5 g/dL (6.3-8.2)
[2022-12-12 09:30] LABS: Neutrophils Absolute Manual 5590 /uL (3000-5900); RBC Morphology Normal Morphology; Total Cells Counted 100
[2022-12-12 10:24] LABS: Creatinine Urine Random 28.8 mg/dL; Protein (Total) Urine Random 9 mg/dL (0-12); Protein Creatinine Ratio Urine 0.31 GRAM/24H
[2022-12-13 08:35] LABS: Tacrolimus 7.5
== END ==
PROVIDERS: PCP Internal Medicine; Referring Provider Internal Medicine Gastroenterology; Visit Provider Internal Medicine Gastroenterology
DX: Z94.4 Liver transplant status (principal); Z79.899 Other long term (current) drug therapy; Z48.298 Encounter for aftercare following other organ transplant
CPT/HCPCS: 36415; 80048; 80076; 80197; 82570; 82977; 83735; 84100; 84156; 85007; 85025; 85610

== ENCOUNTER 2022-12-22 08:13 | Day surgery (SDC) | payer OTHER, MEDICAID, SELFPAY ==
[2022-10-21 20:05] VITALS: BMI 26.9
--- NOTE | 2022-12-22 | PATH_ITS ---
[facility] Accession Number: [id number] No. of containers..02 Tissue . 01 Material submitted: . PART A: colon - PROXIMAL TRANSVERSE POLYP PART B: colon - DISTAL TRANSVERSE POLYP . 01 Diagnosis: A- COLON, PROXIMAL TRANSVERSE POLYP, BIOPSY: - Tubular adenoma --- B- COLON, DISTAL TRANSVERSE POLYP, BIOPSY: - Tubular adenoma TXN 12/27/2022 1508 Local . 01 Electronically signed: . Katie Neville MD, Pathologist NPI- [id number] . 01 Gross description: . Part A: PROXIMAL TRANSVERSE POLYP: Received in formalin is 1 fragment(s) of nguyen, soft tissue measuring 0.6 x 0.4 x 0.4 cm submitted entirely in 1 cassette(s) Part B: DISTAL TRANSVERSE POLYP: Received in formalin are 2 fragment(s) of nguyen, soft tissue measuring 0.7 x 0.7 x 0.6 cm to 1.2 x 0.9 x 0.9 cm which is serially sectioned and submitted entirely in 2 cassette(s) /YULISA 12/23/2022 1855 Local . 01 Pathologist provided ICD-10: Z12.11, K57.92 . 01 CPT . 614222, 612007 Specimen Comment: A courtesy copy of this report has been sent to [phone] Performed at: 01 [facility] [address] [place] [address], [place], [place] [id number] MD Yobani Johnson MD Phone: [phone]
[2022-12-22 08:20] VITALS: BP 93/65; PULSE 79; RESP 16; TEMP 37.1; O2SAT 99; BMI 24.3
[2022-12-22] MEDS: LACTATED RINGERS 1,000 ML 150 ML IV (08:44)
--- NOTE | 2022-12-22 09:16 | PM.PREOP ---
Pre-operative Note COVID-19 COVID-19 status: Not tested Interval Note History & Physical reviewed/Exam performed by Physician: Yes Changes to H&P: No H&P completed within 30 days and has changed as indicated here:: Lanny had her appointment with the transplant team at recently and no problems were uncovered. ASA Class (for procedural sedation): III
--- NOTE | 2022-12-22 10:08 | P.OP.COLON_ITS ---
Operative Date/Time/Diagnoses Date of procedure: 12/22/22 Time of procedure: 10:08 Pre-op diagnosis: Colon cancer screening Post-op diagnosis: same Procedure & Clinicians Study performed: Colonoscopy Same procedure as scheduled: Yes Surgeon: Ayaan Lopez Procedure Notes Procedure in detail: Surgeon: Ayaan Lopez MD Anesthesia: Brandi Brandt CRNA Procedure: The patient was brought to the endoscopy suite, placed in left lateral decubitus position. The patient was connected to monitoring devices. A time-out was performed. Sedation was administered. Once the patient was adequately sedated, a digital rectal exam was performed and was normal. The scope was then inserted and advanced to the cecum where the appendiceal orifice was identified and photographed. The scope was then slowly withdrawn over greater than 6 minutes. The mucosa was thoroughly inspected. There was a 8 mm polyp in the proximal transverse colon removed with a cold snare. There was a 1.2 cm polyp in the distal transverse colon removed with hot snare. Due to the size and location we then injected some tattoo ink around the distal transverse colon polypectomy site. Because of the size of the mucosal gap we also placed to 11 mm hemostatic clips. Hemostasis was visualized. Rest of the colon was no rmal. The scope was retroflexed in the rectum. No other abnormalities were seen. The scope was straightened and removed. The patient was awakened and brought to recovery. Scope withdrawal time: 29 minutes Sedation time: 35 minutes EBL: 10 mL Findings: 8 mm polyp in the proximal transverse colon and 1.2 cm polyp in the distal transverse colon Post-procedure Disposition: PACU
[2022-12-22 10:12] VITALS: BP 116/69; PULSE 18; RESP 18; TEMP 36.1; O2SAT 99
[2022-12-22 10:17] VITALS: BP 119/68; PULSE 82; RESP 23; O2SAT 98
[2022-12-22 10:22] VITALS: BP 115/74; PULSE 69; RESP 15; O2SAT 100
[2022-12-22 10:27] VITALS: BP 115/74; PULSE 67; RESP 17; TEMP 36.5; O2SAT 100
[2022-12-22 10:41] VITALS: BP 122/72; PULSE 80; RESP 16; TEMP 36.8; O2SAT 98
== END 2022-12-22 10:48 | disposition home or self-care (01) ==
PROVIDERS: PCP Internal Medicine; Referring Provider Surgery; Visit Provider Surgery
PROC: 0DJD8ZZ Inspection of Lower Intestinal Tract, Via Natural or Artificial Opening Endoscopic (ICD-10-PCS; CPT 45378; principal; 2022-12-22 09:15)
DX: Z12.11 Encounter for screening for malignant neoplasm of colon (principal); D12.3 Benign neoplasm of transverse colon
CPT/HCPCS: 45381; 45385; J2704

== ENCOUNTER → 2022-12-30 08:03 | Outpatient (CLI) | payer OTHER, MEDICAID, SELFPAY ==
[2022-10-21 20:05] VITALS: BMI 26.9
[2022-12-30 08:53] LABS: Add Manual Diff / Slide Review NO; Basophils Absolute Auto 100 /uL (0-100); Basophils Percent Auto 1.2 % (0-2); Eosinophils Absolute Auto 200 /uL (0-450); Hematocrit 31.8 % (36-46); Hemoglobin 11.2 g/dL (12.0-16.0); Lymphocytes Absolute Auto 1300 /uL (1100-4500); Lymphocytes Percent Auto 23.6 % (25-40); Mean Corpuscular HGB Conc 35.4 % (30-36); Mean Corpuscular Hemoglobin 30.6 PG (26-34); Mean Corpuscular Volume 86.4 fL (80-100); Monocytes Absolute Auto 500 /uL (0-900); Monocytes Percent Auto 8.6 % (3-14); Neutrophils Absolute Auto 3500 /uL (1500-7000); Neutrophils Percent Auto 62.6 % (50-75); Platelet Count 245 X10^3/uL (150-400); Red Blood Cell Count 3.68 X10^6/uL (4.0-5.2); White Blood Cell Count 5.5 X10^3/uL (4.5-11.0)
[2022-12-30 08:56] LABS: INR 1.1 (0.9-1.3); Prothrombin Time 12.1 SECONDS (10.1-12.7)
[2022-12-30 09:31] LABS: Alanine Aminotransferase 16 IU/L (<35); Albumin 4.5 g/dL (3.5-5.0); Albumin Globulin Ratio 1.6 (1.0-2.8); Alkaline Phosphatase 76 U/L (38-126); Aspartate Aminotransferase 24 IU/L (14-36); BUN Creatinine Ratio 21.4 (6-22); Bilirubin Total 0.4 mg/dL (0.2-1.3); Bilirubin Unconjugated 0.3 mg/dL (0.0-1.1); Blood Urea Nitrogen 18 mg/dL (7-17); Calcium 9.3 mg/dL (8.4-10.2); Carbon Dioxide 21 mmol/L (22-32); Chloride 91 mmol/L (98-107); Estimated Glomerular Filt Rate > 60 mL/min (>60); Gamma Glutamyl Transpeptidase 21 U/L (12-43); Globulin 2.8 g/dL (1.7-4.1); Glucose 93 mg/dL (70-100); HEMOLYSIS < 15 (0-50); Magnesium 1.5 mg/dL (1.6-2.3); Phosphorous 4.8 mg/dL (2.5-4.5); Potassium 4.5 mmol/L (3.4-5.1); Sodium 123 mmol/L (137-145); Total Protein 7.3 g/dL (6.3-8.2)
[2023-01-11 09:36] LABS: Tacrolimus 8.3
== END ==
PROVIDERS: PCP Internal Medicine; Referring Provider Internal Medicine Gastroenterology; Visit Provider Internal Medicine Gastroenterology
DX: Z94.4 Liver transplant status (principal); Z48.298 Encounter for aftercare following other organ transplant; Z79.899 Other long term (current) drug therapy; E55.9 Vitamin D deficiency, unspecified
CPT/HCPCS: 36415; 80048; 80076; 80197; 82977; 83735; 84100; 85025; 85610

== ENCOUNTER → 2023-01-31 08:10 | Outpatient (CLI) | payer OTHER, MEDICAID, SELFPAY ==
[2022-10-21 20:05] VITALS: BMI 26.9
[2023-01-31 09:27] LABS: Add Manual Diff / Slide Review NO; Basophils Absolute Auto 0 /uL (0-100); Basophils Percent Auto 0.8 % (0-2); Eosinophils Absolute Auto 200 /uL (0-450); Hematocrit 30.1 % (36-46); Hemoglobin 10.5 g/dL (12.0-16.0); Lymphocytes Absolute Auto 1500 /uL (1100-4500); Lymphocytes Percent Auto 25.8 % (25-40); Mean Corpuscular HGB Conc 34.8 % (30-36); Mean Corpuscular Volume 86.3 fL (80-100); Monocytes Absolute Auto 500 /uL (0-900); Monocytes Percent Auto 8.1 % (3-14); Neutrophils Absolute Auto 3700 /uL (1500-7000); Neutrophils Percent Auto 62.3 % (50-75); Platelet Count 284 X10^3/uL (150-400); Red Blood Cell Count 3.49 X10^6/uL (4.0-5.2); Red Cell Distribution Width 13.2 % (11.6-14.8)
[2023-01-31 09:36] LABS: INR 1.2 (0.9-1.3); Prothrombin Time 13.9 SECONDS (9.4-12.5)
[2023-01-31 10:15] LABS: Alanine Aminotransferase 19 IU/L (<35); Albumin 4.2 g/dL (3.5-5.0); Albumin Globulin Ratio 1.7 (1.0-2.8); Alkaline Phosphatase 62 U/L (38-126); Aspartate Aminotransferase 21 IU/L (14-36); Bilirubin Total 0.5 mg/dL (0.2-1.3); Bilirubin Unconjugated 0.2 mg/dL (0.0-1.1); Blood Urea Nitrogen 12 mg/dL (7-17); Calcium 9.4 mg/dL (8.4-10.2); Carbon Dioxide 23 mmol/L (22-32); Chloride 100 mmol/L (98-107); Estimated Glomerular Filt Rate > 60 mL/min (>60); Gamma Glutamyl Transpeptidase 21 U/L (12-43); Globulin 2.5 g/dL (1.7-4.1); Glucose 113 mg/dL (70-100); HEMOLYSIS < 15 (0-50); Magnesium 1.4 mg/dL (1.6-2.3); Potassium 4.1 mmol/L (3.4-5.1); Sodium 131 mmol/L (137-145); Total Protein 6.7 g/dL (6.3-8.2)
[2023-02-06 09:36] LABS: Tacrolimus 5.1
== END ==
PROVIDERS: PCP Internal Medicine; Referring Provider Internal Medicine Gastroenterology; Visit Provider Internal Medicine Gastroenterology
DX: Z48.298 Encounter for aftercare following other organ transplant (principal); Z94.4 Liver transplant status; Z79.899 Other long term (current) drug therapy
CPT/HCPCS: 36415; 80048; 80076; 80197; 82977; 83735; 84100; 85025; 85610

== ENCOUNTER → 2023-02-16 15:45 | Outpatient (CLI) | payer OTHER, MEDICAID, SELFPAY ==
[2022-10-21 20:05] VITALS: BMI 26.9
[2023-02-16 19:24] LABS: Clostridium Difficile Tox PCR Positive for C. diff (Negative)
[2023-02-22 14:13] LABS: C difficie Toxins A and B, EIA Negative (Negative)
[2023-02-25 20:35] LABS: Calprotectin, Stool 306 ug/g (0-120)
== END ==
PROVIDERS: PCP Internal Medicine; Referring Provider Physician Assistant; Visit Provider Physician Assistant
DX: R19.7 Diarrhea, unspecified (principal)
CPT/HCPCS: 83993; 87324; 87493

== ENCOUNTER → 2023-03-31 09:48 | Outpatient (CLI) | payer OTHER, MEDICAID, SELFPAY ==
[2022-10-21 20:05] VITALS: BMI 26.9
[2023-03-31 14:32] LABS: Clostridium Difficile Tox PCR Negative for C. diff (Negative)
== END ==
PROVIDERS: PCP Internal Medicine; Referring Provider Internal Medicine Gastroenterology; Visit Provider Internal Medicine Gastroenterology
DX: R19.7 Diarrhea, unspecified (principal)
CPT/HCPCS: 87493

== ENCOUNTER → 2023-04-13 18:13 | Outpatient (ROUT) | payer OTHER, MEDICAID, SELFPAY ==
[2022-10-21 20:05] VITALS: BMI 26.9
[2023-04-13 21:09] LABS: Adenovirus F 40/41 Not Detected (Not Detect); Astrovirus Not Detected (Not Detect); Campylobacter Not Detected (Not Detect); Clostridium difficile toxin AB Detected (Not Detect); Cryptosporidium Not Detected (Not Detect); Cyclospora cayetanensis Not Detected (Not Detect); Entamoeba histolytica Not Detected (Not Detect); Enteroaggregative E.coli Not Detected (Not Detect); Enteropathogenic E.coli Not Detected (Not Detect); Enterotoxigenic E.coli It/st Not Detected (Not Detect); Giardia lamblia Not Detected (Not Detect); Norovirus GI/GII Not Detected (Not Detect); Plesiomonsa shigelloides Not Detected (Not Detect); Rotavirus A Not Detected (Not Detect); Salmonella Not Detected (Not Detect); Sapovirus Not Detected (Not Detect); Shiga-like toxin-prod E.coli Not Detected (Not Detect); Shigella/Enteroinvasive E.coli Not Detected (Not Detect); Vibrio Not Detected (Not Detect); Vibrio cholerae Not Detected (Not Detect); Yersinia enterocolitica Not Detected (Not Detect)
[2023-04-18 18:21] LABS: C difficie Toxins A and B, EIA Negative (Negative)
== END ==
PROVIDERS: PCP Internal Medicine; Visit Provider Nurse Practitioner
DX: A04.72 Enterocolitis due to Clostridium difficile, not specified as recurrent (principal); Z94.4 Liver transplant status
CPT/HCPCS: 87324; 87507

== ENCOUNTER → 2023-07-12 08:03 | Outpatient (CLI) | payer OTHER, MEDICAID, SELFPAY ==
[2022-10-21 20:05] VITALS: BMI 26.9
[2023-07-12 08:53] LABS: INR 1.2 (0.9-1.3); Prothrombin Time 13.5 SECONDS (9.4-12.5)
[2023-07-12 08:58] LABS: Alanine Aminotransferase 30 IU/L (<35); Albumin 4.5 g/dL (3.5-5.0); Albumin Globulin Ratio 1.9 (1.0-2.8); Alkaline Phosphatase 90 U/L (38-126); Aspartate Aminotransferase 30 IU/L (14-36); BUN Creatinine Ratio 21.2 (6-22); Bilirubin Total 0.8 mg/dL (0.2-1.3); Bilirubin Unconjugated 0.7 mg/dL (0.0-1.1); Blood Urea Nitrogen 18 mg/dL (7-17); Calcium 9.3 mg/dL (8.4-10.2); Carbon Dioxide 23 mmol/L (22-32); Chloride 96 mmol/L (98-107); Estimated Glomerular Filt Rate > 60 mL/min (>60); Gamma Glutamyl Transpeptidase 23 U/L (12-43); Globulin 2.4 g/dL (1.7-4.1); Glucose 94 mg/dL (70-100); HEMOLYSIS < 15 (0-50); Magnesium 1.5 mg/dL (1.6-2.3); Phosphorous 4.8 mg/dL (2.5-4.5); Potassium 4.8 mmol/L (3.4-5.1); Sodium 126 mmol/L (137-145); Total Protein 6.9 g/dL (6.3-8.2)
[2023-07-12 09:07] LABS: Add Manual Diff / Slide Review NO; Basophils Absolute Auto 0 /uL (0-100); Basophils Percent Auto 0.9 % (0-2); Eosinophils Absolute Auto 200 /uL (0-450); Eosinophils Percent Auto 3.2 % (2-4); Hematocrit 31.8 % (36-46); Hemoglobin 11.3 g/dL (12.0-16.0); Lymphocytes Absolute Auto 1700 /uL (1100-4500); Lymphocytes Percent Auto 30.1 % (25-40); Mean Corpuscular HGB Conc 35.4 % (30-36); Mean Corpuscular Hemoglobin 31.3 PG (26-34); Mean Corpuscular Volume 88.4 fL (80-100); Monocytes Absolute Auto 400 /uL (0-900); Monocytes Percent Auto 7.7 % (3-14); Neutrophils Absolute Auto 3300 /uL (1500-7000); Neutrophils Percent Auto 58.1 % (50-75); Platelet Count 249 X10^3/uL (150-400); White Blood Cell Count 5.7 X10^3/uL (4.5-11.0)
[2023-07-13 06:18] LABS: Tacrolimus 6.3 ng/mL (2.0-20.0)
== END ==
PROVIDERS: PCP Internal Medicine; Referring Provider Internal Medicine Gastroenterology; Visit Provider Internal Medicine Gastroenterology
DX: Z48.298 Encounter for aftercare following other organ transplant (principal); Z94.4 Liver transplant status; Z79.899 Other long term (current) drug therapy
CPT/HCPCS: 36415; 80048; 80076; 80197; 82977; 83735; 84100; 85025; 85610

== ENCOUNTER → 2023-09-26 07:56 | Outpatient (CLI) | payer OTHER, MEDICAID, SELFPAY ==
[2022-10-21 20:05] VITALS: BMI 26.9
[2023-09-26 09:30] LABS: Add Manual Diff / Slide Review NO; Basophils Absolute Auto 100 /uL (0-100); Eosinophils Absolute Auto 200 /uL (0-450); Eosinophils Percent Auto 3.1 % (2-4); Hematocrit 31.7 % (36-46); Hemoglobin 11.4 g/dL (12.0-16.0); Lymphocytes Absolute Auto 1500 /uL (1100-4500); Mean Corpuscular HGB Conc 35.9 % (30-36); Mean Corpuscular Hemoglobin 31.5 PG (26-34); Mean Corpuscular Volume 87.7 fL (80-100); Monocytes Absolute Auto 500 /uL (0-900); Monocytes Percent Auto 8.5 % (3-14); Neutrophils Absolute Auto 3900 /uL (1500-7000); Neutrophils Percent Auto 63.4 % (50-75); Platelet Count 260 X10^3/uL (150-400); Red Blood Cell Count 3.61 X10^6/uL (4.0-5.2); Red Cell Distribution Width 12.6 % (11.6-14.8); White Blood Cell Count 6.2 X10^3/uL (4.5-11.0)
[2023-09-26 09:47] LABS: INR 1.1 (0.9-1.3); Prothrombin Time 12.2 SECONDS (9.4-12.5)
[2023-09-26 10:04] LABS: Alanine Aminotransferase 24 IU/L (<35); Albumin 4.4 g/dL (3.5-5.0); Albumin Globulin Ratio 1.8 (1.0-2.8); Alkaline Phosphatase 83 U/L (38-126); Aspartate Aminotransferase 27 IU/L (14-36); BUN Creatinine Ratio 23.8 (6-22); Bilirubin Total 0.6 mg/dL (0.2-1.3); Bilirubin Unconjugated 0.3 mg/dL (0.0-1.1); Blood Urea Nitrogen 20 mg/dL (7-17); Calcium 8.9 mg/dL (8.4-10.2); Carbon Dioxide 21 mmol/L (22-32); Chloride 99 mmol/L (98-107); Estimated Glomerular Filt Rate > 60 mL/min (>60); Gamma Glutamyl Transpeptidase 20 U/L (12-43); Globulin 2.4 g/dL (1.7-4.1); Glucose 99 mg/dL (70-100); HEMOLYSIS < 15 (0-50); Magnesium 1.6 mg/dL (1.6-2.3); Potassium 4.7 mmol/L (3.4-5.1); Sodium 130 mmol/L (137-145); Total Protein 6.8 g/dL (6.3-8.2)
[2023-09-28 10:11] LABS: Tacrolimus 7.1 ng/mL (2.0-20.0)
== END ==
PROVIDERS: PCP Internal Medicine; Referring Provider Internal Medicine Gastroenterology; Visit Provider Internal Medicine Gastroenterology
DX: Z94.4 Liver transplant status (principal); Z48.298 Encounter for aftercare following other organ transplant; Z79.899 Other long term (current) drug therapy
CPT/HCPCS: 36415; 80048; 80076; 80197; 82977; 83735; 84100; 85025; 85610

== ENCOUNTER → 2023-10-13 07:47 | Outpatient (CLI) | payer OTHER, MEDICAID, SELFPAY ==
[2022-10-21 20:05] VITALS: BMI 26.9
[2023-10-13 08:20] LABS: Add Manual Diff / Slide Review NO; Basophils Absolute Auto 100 /uL (0-100); Basophils Percent Auto 0.7 % (0-2); Eosinophils Absolute Auto 200 /uL (0-450); Eosinophils Percent Auto 2.6 % (2-4); Hematocrit 31.9 % (36-46); Hemoglobin 11.4 g/dL (12.0-16.0); Lymphocytes Absolute Auto 1600 /uL (1100-4500); Lymphocytes Percent Auto 21.5 % (25-40); Mean Corpuscular HGB Conc 35.9 % (30-36); Mean Corpuscular Hemoglobin 30.9 PG (26-34); Mean Corpuscular Volume 86.2 fL (80-100); Monocytes Absolute Auto 500 /uL (0-900); Monocytes Percent Auto 7.6 % (3-14); Neutrophils Absolute Auto 4900 /uL (1500-7000); Neutrophils Percent Auto 67.6 % (50-75); Platelet Count 291 X10^3/uL (150-400); Red Cell Distribution Width 12.7 % (11.6-14.8); White Blood Cell Count 7.2 X10^3/uL (4.5-11.0)
[2023-10-13 08:29] LABS: INR 1.1 (0.9-1.3); Prothrombin Time 12.6 SECONDS (9.4-12.5)
[2023-10-13 08:35] LABS: Alanine Aminotransferase 25 IU/L (<35); Albumin 4.5 g/dL (3.5-5.0); Alkaline Phosphatase 83 U/L (38-126); Aspartate Aminotransferase 29 IU/L (14-36); BUN Creatinine Ratio 20.2 (6-22); Bilirubin Total 0.7 mg/dL (0.2-1.3); Bilirubin Unconjugated 0.3 mg/dL (0.0-1.1); Blood Urea Nitrogen 19 mg/dL (7-17); Calcium 9.2 mg/dL (8.4-10.2); Carbon Dioxide 19 mmol/L (22-32); Chloride 96 mmol/L (98-107); Cholesterol 266 mg/dL (140-199); Estimated Glomerular Filt Rate > 60 mL/min (>60); Gamma Glutamyl Transpeptidase 18 U/L (12-43); Globulin 2.2 g/dL (1.7-4.1); Glucose 94 mg/dL (70-100); HDL Cholesterol 80 mg/dL (40-60); HEMOLYSIS < 15 (0-50); LDL Cholesterol Calculated 171 mg/dL (<100); Magnesium 1.6 mg/dL (1.6-2.3); Phosphorous 3.9 mg/dL (2.5-4.5); Potassium 4.7 mmol/L (3.4-5.1); Sodium 124 mmol/L (137-145); Total Protein 6.7 g/dL (6.3-8.2); Triglycerides 76 mg/dL (35-150)
[2023-10-14 07:36] LABS: Tacrolimus 6.4 ng/mL (2.0-20.0)
== END ==
PROVIDERS: PCP Internal Medicine; Referring Provider Internal Medicine Gastroenterology; Visit Provider Internal Medicine Gastroenterology
DX: Z48.298 Encounter for aftercare following other organ transplant (principal); Z94.4 Liver transplant status; Z79.899 Other long term (current) drug therapy
CPT/HCPCS: 36415; 80048; 80061; 80076; 80197; 82977; 83735; 84100; 85025; 85610

== ENCOUNTER → 2023-10-19 15:29 | Outpatient (CLI) | payer OTHER, MEDICAID, SELFPAY ==
[2022-10-21 20:05] VITALS: BMI 26.9
[2023-10-19 17:43] LABS: Free T4, Direct Thyroxine 1.24 ng/dL (0.78-2.19)
[2023-10-19 17:44] LABS: Follicle Stimulating Hormone 43.7 mIU/mL; Luteinizing Hormone 18.8 mIU/mL; Progesterone, Total 0.47 ng/mL
[2023-10-19 17:57] LABS: Thyroid Stimulating Hormone 0.311 uIU/mL (0.47-4.68)
== END ==
LOC: LAB 15:31
PROVIDERS: PCP Internal Medicine; Referring Provider Internal Medicine; Visit Provider Internal Medicine
DX: N95.9 Unspecified menopausal and perimenopausal disorder (principal); R23.2 Flushing
CPT/HCPCS: 36415; 82627; 82672; 83001; 83002; 84144; 84439; 84443

== ENCOUNTER → 2023-12-13 07:55 | Outpatient (CLI) | payer OTHER, MEDICAID, SELFPAY ==
[2022-10-21 20:05] VITALS: BMI 26.9
[2023-12-13 09:38] LABS: Add Manual Diff / Slide Review NO; Basophils Absolute Auto 100 /uL (0-100); Basophils Percent Auto 1.2 % (0-2); Eosinophils Absolute Auto 200 /uL (0-450); Eosinophils Percent Auto 3.8 % (2-4); Hematocrit 31.5 % (36-46); Hemoglobin 11.1 g/dL (12.0-16.0); Lymphocytes Absolute Auto 1400 /uL (1100-4500); Lymphocytes Percent Auto 22.7 % (25-40); Mean Corpuscular HGB Conc 35.2 % (30-36); Mean Corpuscular Hemoglobin 31.1 PG (26-34); Mean Corpuscular Volume 88.2 fL (80-100); Monocytes Absolute Auto 500 /uL (0-900); Neutrophils Absolute Auto 3800 /uL (1500-7000); Neutrophils Percent Auto 64.3 % (50-75); Platelet Count 278 X10^3/uL (150-400); Red Blood Cell Count 3.58 X10^6/uL (4.0-5.2); Red Cell Distribution Width 13.2 % (11.6-14.8)
[2023-12-13 09:43] LABS: INR 1.2 (0.9-1.3); Prothrombin Time 13.5 SECONDS (9.4-12.5)
[2023-12-13 10:00] LABS: Alanine Aminotransferase 16 IU/L (<35); Albumin 4.1 g/dL (3.5-5.0); Albumin Globulin Ratio 1.6 (1.0-2.8); Alkaline Phosphatase 57 U/L (38-126); Aspartate Aminotransferase 24 IU/L (14-36); BUN Creatinine Ratio 12.5 (6-22); Bilirubin Total 0.6 mg/dL (0.2-1.3); Bilirubin Unconjugated 0.4 mg/dL (0.0-1.1); Blood Urea Nitrogen 13 mg/dL (7-17); Calcium 9.1 mg/dL (8.4-10.2); Carbon Dioxide 22 mmol/L (22-32); Chloride 98 mmol/L (98-107); Cholesterol 277 mg/dL (140-199); Estimated Glomerular Filt Rate > 60 mL/min (>60); Globulin 2.5 g/dL (1.7-4.1); Glucose 107 mg/dL (70-100); HDL Cholesterol 66 mg/dL (40-60); HEMOLYSIS < 15 (0-50); LDL Cholesterol Calculated 196 mg/dL (<100); Magnesium 1.4 mg/dL (1.6-2.3); Phosphorous 3.4 mg/dL (2.5-4.5); Potassium 4.2 mmol/L (3.4-5.1); Sodium 127 mmol/L (137-145); Total Protein 6.6 g/dL (6.3-8.2); Triglycerides 76 mg/dL (35-150)
[2023-12-13 10:32] LABS: Protein (Total) Urine Random 8 mg/dL (0-12); Protein Creatinine Ratio Urine 0.09 GRAM/24H
[2023-12-13 17:30] LABS: Gamma Glutamyl Transpeptidase 12 U/L (12-43)
[2023-12-14 08:36] LABS: Tacrolimus 3.4 ng/mL (2.0-20.0)
== END ==
PROVIDERS: PCP Internal Medicine; Referring Provider Internal Medicine Gastroenterology; Visit Provider Internal Medicine Gastroenterology
DX: Z48.298 Encounter for aftercare following other organ transplant (principal); Z94.4 Liver transplant status; Z79.899 Other long term (current) drug therapy
CPT/HCPCS: 36415; 80048; 80061; 80076; 80197; 82570; 82977; 83735; 84100; 84156; 85025; 85610

== ENCOUNTER → 2024-04-05 08:00 | Outpatient (CLI) | payer OTHER, SELFPAY ==
[2022-10-21 20:05] VITALS: BMI 26.9
[2024-04-05 08:56] LABS: Add Manual Diff / Slide Review NO; Basophils Absolute Auto 100 /uL (0-100); Eosinophils Absolute Auto 200 /uL (0-450); Eosinophils Percent Auto 3.3 % (2-4); Hematocrit 35.4 % (36-46); Hemoglobin 12.4 g/dL (12.0-16.0); Lymphocytes Absolute Auto 1800 /uL (1100-4500); Lymphocytes Percent Auto 34.3 % (25-40); Mean Corpuscular HGB Conc 34.9 % (30-36); Mean Corpuscular Hemoglobin 30.4 PG (26-34); Monocytes Absolute Auto 500 /uL (0-900); Monocytes Percent Auto 9.5 % (3-14); Neutrophils Absolute Auto 2800 /uL (1500-7000); Neutrophils Percent Auto 51.9 % (50-75); Platelet Count 236 X10^3/uL (150-400); Red Blood Cell Count 4.07 X10^6/uL (4.0-5.2); Red Cell Distribution Width 13.1 % (11.6-14.8); White Blood Cell Count 5.3 X10^3/uL (4.5-11.0)
[2024-04-05 09:05] LABS: INR 1.2 (0.9-1.3); Prothrombin Time 13.4 SECONDS (9.4-12.5)
[2024-04-05 09:15] LABS: Alanine Aminotransferase 13 IU/L (<35); Albumin 4.2 g/dL (3.5-5.0); Albumin Globulin Ratio 1.8 (1.0-2.8); Alkaline Phosphatase 63 U/L (38-126); Aspartate Aminotransferase 22 IU/L (14-36); BUN Creatinine Ratio 11.8 (6-22); Bilirubin Total 0.5 mg/dL (0.2-1.3); Bilirubin Unconjugated 0.3 mg/dL (0.0-1.1); Blood Urea Nitrogen 11 mg/dL (7-17); Calcium 9.3 mg/dL (8.4-10.2); Carbon Dioxide 21 mmol/L (22-32); Chloride 101 mmol/L (98-107); Estimated Glomerular Filt Rate > 60 mL/min (>60); Globulin 2.4 g/dL (1.7-4.1); Glucose 98 mg/dL (70-100); HEMOLYSIS < 15 (0-50); Potassium 4.3 mmol/L (3.4-5.1); Sodium 131 mmol/L (137-145); Total Protein 6.6 g/dL (6.3-8.2)
[2024-04-06 08:10] LABS: Tacrolimus 6.4 ng/mL (2.0-20.0)
[2024-04-07 15:39] LABS: Magnesium 1.5 mg/dL (1.6-2.3)
== END ==
LOC: LAB 08:01
PROVIDERS: PCP Internal Medicine; Referring Provider Internal Medicine Gastroenterology; Visit Provider Internal Medicine Gastroenterology
DX: Z48.298 Encounter for aftercare following other organ transplant (principal); Z94.4 Liver transplant status; Z79.899 Other long term (current) drug therapy
CPT/HCPCS: 36415; 80048; 80076; 80197; 83735; 84100; 85025; 85610

== ENCOUNTER → 2024-07-11 07:37 | Outpatient (CLI) | payer OTHER, SELFPAY ==
[2022-10-21 20:05] VITALS: BMI 26.9
[2024-07-11 08:03] LABS: Add Manual Diff / Slide Review NO; Basophils Absolute Auto 100 /uL (0-100); Basophils Percent Auto 1.1 % (0-2); Eosinophils Absolute Auto 200 /uL (0-450); Eosinophils Percent Auto 3.9 % (2-4); Hematocrit 35.2 % (36-46); Hemoglobin 12.4 g/dL (12.0-16.0); Lymphocytes Absolute Auto 1500 /uL (1100-4500); Lymphocytes Percent Auto 30.9 % (25-40); Mean Corpuscular HGB Conc 35.1 % (30-36); Mean Corpuscular Hemoglobin 30.3 PG (26-34); Mean Corpuscular Volume 86.3 fL (80-100); Monocytes Absolute Auto 400 /uL (0-900); Neutrophils Absolute Auto 2800 /uL (1500-7000); Neutrophils Percent Auto 56.1 % (50-75); Platelet Count 242 X10^3/uL (150-400); Red Blood Cell Count 4.08 X10^6/uL (4.0-5.2); Red Cell Distribution Width 13.5 % (11.6-14.8); White Blood Cell Count 4.9 X10^3/uL (4.5-11.0)
[2024-07-11 08:05] LABS: INR 1.1 (0.9-1.3); Prothrombin Time 12.9 SECONDS (9.4-12.5)
[2024-07-11 08:15] LABS: Alanine Aminotransferase 17 IU/L (<35); Albumin 4.4 g/dL (3.5-5.0); Albumin Globulin Ratio 1.8 (1.0-2.8); Alkaline Phosphatase 69 U/L (38-126); Aspartate Aminotransferase 23 IU/L (14-36); BUN Creatinine Ratio 14.4 (6-22); Bilirubin Total 0.6 mg/dL (0.2-1.3); Bilirubin Unconjugated 0.2 mg/dL (0.0-1.1); Blood Urea Nitrogen 13 mg/dL (7-17); Calcium 9.3 mg/dL (8.4-10.2); Carbon Dioxide 21 mmol/L (22-32); Chloride 101 mmol/L (98-107); Estimated Glomerular Filt Rate > 60 mL/min (>60); Globulin 2.4 g/dL (1.7-4.1); Glucose 107 mg/dL (70-99); HEMOLYSIS < 15 (0-50); Phosphorous 4.5 mg/dL (2.5-4.5); Potassium 4.5 mmol/L (3.4-5.1); Sodium 132 mmol/L (137-145); Total Protein 6.8 g/dL (6.3-8.2)
[2024-07-12 06:37] LABS: Tacrolimus 4.4 ng/mL (5.0-20.0)
== END ==
LOC: LAB 07:38
PROVIDERS: PCP Internal Medicine; Referring Provider Internal Medicine Gastroenterology; Visit Provider Internal Medicine Gastroenterology
DX: Z48.298 Encounter for aftercare following other organ transplant (principal); Z94.4 Liver transplant status; Z79.899 Other long term (current) drug therapy
CPT/HCPCS: 36415; 80048; 80076; 80197; 84100; 85025; 85610

== ENCOUNTER → 2024-11-18 08:10 | Outpatient (CLI) | payer OTHER, SELFPAY ==
[2022-10-21 20:05] VITALS: BMI 26.9
[2024-11-18 08:41] LABS: Add Manual Diff / Slide Review NO; Hematocrit 32.1 % (36-46); Hemoglobin 11.5 g/dL (12.0-16.0); Lymphocytes Absolute Auto 1400 /uL (1100-4500); Mean Corpuscular HGB Conc 35.8 % (30-36); Mean Corpuscular Hemoglobin 30.4 PG (26-34); Mean Corpuscular Volume 85.1 fL (80-100); Platelet Count 248 X10^3/uL (150-400)
[2024-11-18 08:48] LABS: Hemoglobin A1C% w Est Avg Glu 5.3 % (4.0-6.0)
[2024-11-18 08:50] LABS: INR 1.1 (0.9-1.3); Prothrombin Time 12.0 SECONDS (9.4-12.5)
[2024-11-18 08:55] LABS: Protein (Total) Urine Random 7 mg/dL (0-12); Protein Creatinine Ratio Urine 0.16 GRAM/24H
[2024-11-18 09:00] LABS: Alanine Aminotransferase 17 IU/L (<35); Albumin 4.2 g/dL (3.5-5.0); Albumin Globulin Ratio 1.7 (1.0-2.8); Alkaline Phosphatase 82 U/L (38-126); Blood Urea Nitrogen 12 mg/dL (7-17); Calcium 9.0 mg/dL (8.4-10.2); Carbon Dioxide 21 mmol/L (22-32); Chloride 99 mmol/L (98-107); Cholesterol 274 mg/dL (140-199); Estimated Glomerular Filt Rate > 60 mL/min (>60); Gamma Glutamyl Transpeptidase 14 U/L (12-43); Globulin 2.5 g/dL (1.7-4.1); Glucose 106 mg/dL (70-99); HDL Cholesterol 86 mg/dL (40-60); HEMOLYSIS < 15 (0-50); Magnesium 1.6 mg/dL (1.6-2.3); Phosphorous 3.8 mg/dL (2.5-4.5); Potassium 4.7 mmol/L (3.4-5.1); Sodium 129 mmol/L (137-145); Total Protein 6.7 g/dL (6.3-8.2); Triglycerides 105 mg/dL (35-150)
== END ==
PROVIDERS: PCP Internal Medicine; Referring Provider Internal Medicine Gastroenterology; Visit Provider Internal Medicine Gastroenterology
DX: Z48.298 Encounter for aftercare following other organ transplant (principal); Z79.899 Other long term (current) drug therapy; Z94.4 Liver transplant status
CPT/HCPCS: 36415; 80048; 80061; 80076; 80197; 82570; 82977; 83036; 83735; 84100; 84156; 85025; 85610

== ENCOUNTER → 2024-12-31 09:04 | Outpatient (CLI) | payer OTHER, SELFPAY ==
[2022-10-21 20:05] VITALS: BMI 26.9
--- NOTE | 2024-12-31 09:05 | DI.MRI.S_ITS ---
PROCEDURE: MR SHOULDER LT WO CON INDICATIONS: left shoulder pain TECHNIQUE: Noncontrast oblique coronal T2 fast spin echo with fat saturation, oblique sagittal T1 spin echo and T2 fast spin echo with fat saturation, axial T1 spin echo and T2 fast spin echo with fat saturation through the shoulder. COMPARISON: No prior MRI for comparison. Comparison can be made to prior x-ray FINDINGS: Image quality: Excellent. Some images are limited by patient motion, pulsation or other artifacts. Rotator cuff: [id number] increased T2 weighted signal with areas of thinning predominantly of the articular surface of the mid and distal supraspinatus suspicious for tendinopathy with partial tear. No significant myotendinous retraction or muscular fatty atrophy. Mild increased T2 weighted signal, tendinopathy of the distal infraspinatus without tear or retraction. Subscapularis and teres minor within normal limits. Bones and bursae: Mild degenerative changes left acromioclavicular joint with mild capsular hypertrophy, subchondral edema, small osteophytes. No os acromiale. [id number] degenerative changes of the glenohumeral joint with mild osteophytes, cartilage thinning, and diffuse thinning of the superior labrum some of which may be related to chronic SLAP tear with maceration/degeneration. There is a prominent middle glenohumeral ligament which raises the suspicion for Dinorah complex variant. Mild posterior lateral positioning of the humeral head in relation to the glenoid may be artifact from positioning or related to mild subluxation. No MR evidence of fracture line or dislocation. Capsule and soft tissues: Biceps tendon is located within the biceps groove. Mild increased T2 weighted signal and thinning of the biceps anchor, mild tendinopathy without tear or retraction. IMPRESSION: Tendinopathy with partial tear distal supraspinatus. Mild tendinopathy distal infraspinatus. Mild degenerative changes acromioclavicular and glenohumeral joints as discussed above. Degenerative change versus chronic superior labral tear. Mild tendinopathy biceps anchor. Dictated by: Andre David M.D. on 12/31/2024 at 15:48 Approved by: Andre David M.D. on 12/31/2024 at 16:02
== END ==
LOC: MRI 09:05
PROVIDERS: PCP Internal Medicine; Referring Provider Internal Medicine; Visit Provider Physician Assistant Surgical
DX: M75.112 Incomplete rotator cuff tear or rupture of left shoulder, not specified as traumatic (principal); M25.512 Pain in left shoulder
CPT/HCPCS: 73221